=== PATIENT | female | born 1970 | race Caucasian/White ===

== ENCOUNTER 2024-05-17 19:41 | Emergency (ER) | payer MEDICAID, SELFPAY ==
[2024-05-17 19:54] VITALS: BP 106/56; PULSE 83; RESP 16; TEMP 36.2; O2SAT 100; BMI 29.5
--- OUTSIDE RECORDS SUMMARY | 2024-05-17 19:59 | XMS_ITS | Referral Summary ---
Author Organization [facility] Address [address] [place] [address]- Care Team Providers Care Research Geologist Name Role Phone Ricardo Contreras Primary Care Physician Encounter Date(s): 01/09/17 - 01/09/17 [facility] [address] [place] [address]- [facility] Discharge Disposition: Home Attending Physician: Raul Arthur Referring Physician: Raul Arthur Vital Signs No data available for this section Problem List Condition Effective Dates Status Health Status Inform ant Altered behavior(Confirmed) 01/05/16 Active Hypotension(Confirmed) 04/13/15 Active Allergies, Adverse Reactions, Alerts Substance Reaction Severity Status Adhesive Bandage Active Bee Stings Active Latex Active Medications No data available for this section Results No data available for this section Immunizations No data available for this section Procedures No data available for this section Social History No data available for this section Functional Status No data available for this section Assessment and Plan No data available for this section Hospital Discharge Instructions No data available for this section
--- OUTSIDE RECORDS SUMMARY | 2024-05-17 19:59 | XMS_ITS | Referral Summary ---
Author Organization [facility] Address [address] [place] [address]- Care Team Providers Care Program Director Cable Television Name Role Phone Ricardo Contreras Primary Care Physician [phone] Encounter Date(s): 12/17/18 - 12/17/18 [facility] [address] [place] [address]- [facility] Discharge Disposition: Home Attending Physician: Davon Law Referring Physician: Davon Law Vital Signs Most recent to oldest [Reference Range]: 1 2 3 Systolic Blood Pressure [90-140 mm-hg] 140 mm-hg (12/17/18 4:40 PM) 149 mm-hg *HI* (12/17/18 4:40 PM) 161 mm-hg *HI* (12/17/18 4:40 PM) Diastolic Blood Pressure [60-90 mm-hg] 59 mm-hg *LOW* (12/17/18 4:40 PM) 66 mm-hg (12/17/18 4:40 PM) 63 mm-hg (12/17/18 4:40 PM) M A P [65-110 mm-hg] 105 mm-hg (12/17/18 3:08 PM) Temperature Tympanic [97.9-100.6 DegF] 99.4 DegF (12/17/18 4:40 PM) 99.4 DegF (12/17/18 4:40 PM) 98.4 DegF 1 (12/17/18 3:08 PM) Apical Heart Rate [60-100 bpm] 67 bpm (12/17/18 4:40 PM) 73 bpm (12/17/18 4:40 PM) 76 bpm (12/17/18 4:40 PM) Peripheral Pulse Rate [60-100 bpm] 79 bpm (12/17/18 3:08 PM) Respiratory Rate [14-20 br/min] 16 br/min (12/17/18 4:40 PM) 16 br/min (12/17/18 4:40 PM) 16 br/min (12/17/18 4:40 PM) 1Result Comment: temporal Problem List Condition Effective Dates Status Health Status Inform ant Altered behavior(Confirmed) 01/05/16 Active Hypotension(Confirmed) 04/13/15 Active Allergies, Adverse Reactions, Alerts Substance Reaction Severity Status Adhesive Bandage Active Bee Stings Active Latex Active Results Blood Glucose Most recent to oldest [Reference Range]: 1 Blood Glucose, Capillary [70-100 mg/dL] 141 mg/dL 1 *HI* (12/17/18 3:32 PM) 1Result Comment: finger Social History Social History Type Response Smoking Status Current every day jeanine cavazos Assessment and Plan Extracted from: Title:Discharge Instructions Author:John Arce Date:12/17/18 [facility] EN[facility] We strive to always provide you with Excellent Care! Surgery Discharge Instructions It is very important that you take these discharge instructions with you to your next doctor? s appointment! PERSON INFORMATION Name: KATHERIN GOMEZ Age: 48 Years Visit Reason: Address: [address] [place] [address] Primary physician: Ricardo Contreras Arrival Date/Time: Discharge Date/Time: PROVIDER INFORMATION MEDICAL INFORMATION Allergies Latex Bee Stings Adhesive Bandage Discharge Instructions by the Physician: PATIENT EDUCATION INFORMATION: GENERAL (ADULT) POST-OPERATIVE INSTRUCTIONS ACTIVITY: Due to the medicine you received, you may be sleepy for the next 24 hours. You should rest at home and have a responsible adult with you. You are advised not to make any important decisions, sign important papers, drive or operate machinery for the next 24 hours or as directed by your doctor. MEDICATION: You doctor may give you a prescription for pain. This should be taken as directed. When you take the medicine be careful as you walk or drive, because dizziness may occur. DIET: During the next 24 hours, progress slowly to your normal diet (unless your doctor has instructed you otherwise). Start with liquids such as soft drinks, then soup and crackers, gradually working up to solid foods. Drink as much water, juice, or cola, as you can tolerate; up to eight glasses a day, unless you are on fluid restrictions. Also, do not drink beer, wine, or liquors for the next 24 hours. Alcohol increases the effects of anesthesia. DRESSING CARE: MAY SHOWER TOMORROW. PACK WOUND AND COVER WITH DRY DRESSING DAILY WHEN TO CALL THE DOCTOR: ? ? A fever over 100 degrees orally. ? ? Pain not relieved by pain medication ? ? A large amount of bleeding from the wound. ? ? Persistent nausea / vomiting ? ? You have chills, a cough, or feel weak and achy. ? ? Allergic reaction to your medications causing your skin to become itchy, swollen, and develop a rash. WHERE TO CALL WITH QUESTIONS: Dr. LAW Telephone: [phone] Outpatient Services - [phone] or [phone], open 7:00am to 3:30pm Sunday through Sunday. APPOINTMENT WITH: CALL TOMORROW FOR 2 TO 3 WEEK FOLLOW UP. PRESCRIPTION(S): X Patient provided with written prescriptions: ? Written prescriptions verified with physician orders: ? No prescription provided: EXTRA INSTRUCTIONS: NO DRIVING IN PAIN AND USING NARCOTICS A copy of these instructions were given and explained to: FAMILY MEMBER Follow Up: FINAL MEDICATION LIST: No Medications Documented DISCHARGE INFORMATION Discharge Disposition: Discharge Location: Hospital Discharge Instructions Patient Education General Adult Post Op
[2024-05-17 20:00] VITALS: BP 121/62; PULSE 83; O2SAT 99
[2024-05-17 20:30] VITALS: BP 119/61; PULSE 79; O2SAT 100
[2024-05-17 20:39] VITALS: BP 119/61; PULSE 77; RESP 18; TEMP 36.5; O2SAT 100
[2024-05-17] MEDS: MUPIROCIN 2% OINTMENT 22GM TUBE 22 GM TP (20:39)
[2024-05-17] MEDS: SULFA/TRIMETHOPRIM 1 TABLET 1 EACH PO (20:39)
[2024-05-17] MEDS: cephALEXin 500MG CAPSULE 500 MG PO (20:39)
--- NOTE | 2024-05-17 21:16 | ED_ITS ---
Discharge Plan Disposition Patient Disposition: Home, Self-Care Condition: Good Prescriptions Prescriptions: New sulfamethoxazole-trimethoprim [Bactrim DS] 800-160 mg tablet 1 tab PO BID 7 Days Qty: 14 0RF cephalexin 500 mg capsule 500 mg PO Q6H 7 Days Qty: 28 0RF No Action cyanocobalamin (vitamin B-12) 1,000 mcg tablet PO levocetirizine 5 mg tablet PO ferrous sulfate 324 mg (65 mg iron) tablet,delayed release (DR/EC) PO topiramate 50 mg tablet PO hydroxyzine HCl 25 mg tablet PO potassium chloride 10 mEq tablet extended release PO oxycodone-acetaminophen 7.5-325 mg tablet PO gabapentin 300 mg capsule PO Patient Comments: TAKE 1 CAPSULE BY MOUTH TWICE DAILY lisinopril 20 mg tablet PO magnesium oxide 400 mg (241.3 mg magnesium) tablet PO sumatriptan succinate 100 mg tablet PO Patient Comments: TAKE 1 TABLET BY MOUTH 1 TIME AT ONSET OF HEADACHE. REPEAT AFTER 2 HOURS IF HEADACHE PERSISTS cholecalciferol (vitamin D3) 1,250 mcg (50,000 unit) capsule PO Mounjaro 5 mg/0.5 mL pen injector SQ Patient Comments: ADMINISTER 5 MG UNDER THE SKIN WEEKLY sertraline 50 mg tablet PO (DME) BinaxNOW COVID-19 Ag Self Test Kit See Rx Instructions .ROUTE .MEDSUPPLY Qty: 1 Rx Instructions: As directed omeprazole 40 mg capsule,delayed release(DR/EC) PO Patient Comments: TAKE 1 CAPSULE BY MOUTH DAILY anastrozole 1 mg tablet 1 mg PO DAILY Qty: 90 3RF Referrals Follow up/Referrals: Kiara Espinal APRN [Nurse Practitioner] - See instructions Provider,Referral, [Primary Care Provider] - See instructions Activity Restrictions/Add. Instructions Additional Instructions/Restrictions: You were evaluated in the emergency department today. 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 Take Tylenol and ibuprofen every 4-6 hours as needed for pain. Follow-up closely with your primary care provider. You may also follow-up with ENT for reassessment of your nose. Return to the emergency department for new or worsening symptoms Clinical Impressions Clinical Impression: Cellulitis of face, Nasal pain Stand Alone Forms Stand Alone Forms: Work/School Release Instructions Patient Instructions: Cellulitis Print Language Print Language: Vietnamese Discharge ED Provider: Amber Altamirano General Adult HPI General Chief complaint: Upper Respiratory Infection Stated complaint: sinus pain Time Seen by Provider: 05/17/24 20:07 Mode of Arrival: Family Vehicle Source of Information: Patient Limitations: No Limitations Description of Symptoms (Recalled from ER Triage Doc. by RN): 53 yo [id number] with cc of sinus pain,swelling,drainage,gum tenderness, no recent treatment History of Present Illness HPI narrative: This patient is a 53-year-old female with a history of breast cancer status post section presenting with concern for a facial pain. Patient reports history of recurrent abscesses in the past and is afraid she is getting an abscess of her face. She states that she has some pain and swelling to the lateral aspect of her right nose as well as her right cheek. No ocular symptoms or issues. No abnormal sinus drainage. She does note some increase in the tibia to her upper gums but no other concerns noted at this time. No fevers, chills, or systemic symptoms Related Data Home Medications ?Medication ?Instructions ?Recorded ?Confirmed COVID-19 antigen test (Carol #1 ea 11/13/23 11/13/23 COVID-19 Ag Self Test kit) cholecalciferol (vitamin D3) 1,250 PO 11/13/23 11/13/23 mcg (50,000 unit) capsule cyanocobalamin (vitamin B-12) mcg PO 11/13/23 11/13/23 1,000 mcg tablet ferrous sulfate 324 mg (65 mg mg PO 11/13/23 11/13/23 iron) tablet,delayed release gabapentin 300 mg capsule mg PO 11/13/23 11/13/23 hydroxyzine HCl 25 mg tablet mg PO 11/13/23 11/13/23 levocetirizine 5 mg tablet mg PO 11/13/23 11/13/23 lisinopril 20 mg tablet mg PO 11/13/23 11/13/23 magnesium oxide 400 mg (241.3 mg mg PO 11/13/23 11/13/23 magnesium) tablet omeprazole 40 mg capsule,delayed mg PO 11/13/23 11/13/23 release oxycodone-acetaminophen 7.5 mg-325 tab PO 11/13/23 11/13/23 mg tablet potassium chloride 10 mEq meq PO 11/13/23 11/13/23 tablet,extended release sertraline 50 mg tablet mg PO 11/13/23 11/13/23 sumatriptan succinate 100 mg tablet mg PO 11/13/23 11/13/23 tirzepatide 5 mg/0.5 mL mg SQ 11/13/23 11/13/23 subcutaneous pen injector (Naty) topiramate 50 mg tablet mg PO 11/13/23 11/13/23 Previous Rx's ?Medication ?Instructions ?Recorded anastrozole 1 mg tablet 1 mg PO DAILY #90 tabs 01/31/24 cephalexin 500 mg capsule 500 mg PO Q6H 7 days #28 caps 05/17/24 sulfamethoxazole 800 1 tab PO BID 7 days #14 tabs 05/17/24 mg-trimethoprim 160 mg tablet (Bactrim DS) Allergies Allergy/AdvReac Type Severity Reaction Status Date / Time latex Allergy Verified 11/13/23 11:44 bee sting Allergy Uncoded 11/13/23 11:44 surgical tape Allergy Uncoded 11/13/23 11:44 PFSH [facility] Disclaimer: The information contained in this section may have been updated after the patient was seen, as this information can be updated by other users. Social History Smoking Status: Unknown if ever smoked alcohol intake: never current occupational status: unemployed Travel in the last 8 weeks: None ROS Obtained: Yes All systems reviewed & no additional complaints except as documented Physical Exam General General appearance: alert and in no apparent distress Head Head exam: atraumatic and normocephalic Eye Eye exam: Present normal appearance, PERRL and EOMI ENT ENT exam: Present normal oropharynx, mucous membranes moist and normal external ear exam Expanded ENT Exam Nose/Mouth Image: 2 1. mild erythema and swelling, no appreciable abscesses, induration, fluctuance; area is TTP. No purulent nasal drainage Neck Neck exam: Present normal inspection, full ROM and trachea midline; Absent tenderness Chest Chest inspection: Present normal inspection and symmetric chest wall rise; Absent tenderness Respiratory Respiratory exam: Present normal lung sounds bilaterally; Absent respiratory distress, wheezes, stridor or accessory muscle use Cardiovascular Cardiovascular exam: Present regular rate and normal rhythm Abdominal Exam Abdominal exam: Present soft; Absent distention, tenderness or guarding Extremities Exam Extremities exam: Present normal inspection, full ROM and normal capillary refill; Absent tenderness or edema Back Exam Back exam: Present normal inspection and full ROM; Absent tenderness Neurological Exam Neurological exam: Present alert, oriented X3, CN II-XII intact and normal gait; Absent motor sensory deficit Psychiatric Psychiatric exam: Present normal affect and normal mood Skin Skin exam: Present warm and dry Medical Decision Making Medical Records Medical records reviewed: Yes I reviewed the patient's medical records. Damion Inquiry Pt receiving controlled substance: No Vital Signs: 05/17/24 19:54 05/17/24 20:00 05/17/24 20:30 Temperature 97.2 F L Temperature Source Oral Pulse Rate 83 79 Pulse Rate [Right Brachial] 83 Respiratory Rate 16 Blood Pressure 121/62 119/61 Blood Pressure [Right Arm] 106/56 L Blood Pressure Mean [Right Arm] 72 Blood Pressure Source Blood Pressure Source [Right Arm] Automatic Cuff Blood Pressure Position Blood Pressure Position [Right Arm] Sitting 02 Sat by Pulse Oximetry 100 99 100 Oxygen Delivery Method Room Air 05/17/24 20:39 Temperature 97.7 F Temperature Source Oral Pulse Rate 77 Pulse Rate [Right Brachial] Respiratory Rate 18 Blood Pressure 119/61 Blood Pressure [Right Arm] Blood Pressure Mean [Right Arm] Blood Pressure Source Automatic Cuff Blood Pressure Source [Right Arm] Blood Pressure Position Sitting Blood Pressure Position [Right Arm] 02 Sat by Pulse Oximetry Oxygen Delivery Method Room Air Lab Data Lab results reviewed: Yes I reviewed the patient's lab results. Orders (Tests/Meds): ED MEDICATIONS Discontinued Medications Generic Name Dose Route Start Last Admin Trade Name Freq PRN Reason Stop Dose Admin Cephalexin HCl 500 mg 05/17/24 20:30 05/17/24 20:39 Cephalexin 500mg Capsule PO 05/17/24 20:31 500 mg ONCE ONE Administration Mupirocin 22 gm 05/17/24 20:30 05/17/24 20:39 Mupirocin 2% Ointment 22gm Tube TP 05/17/24 20:31 22 gm ONCE ONE Administration Trimethoprim/Sulfamethoxazole 1 each 05/17/24 20:30 05/17/24 20:39 Sulfa/Trimethoprim 1 Tablet PO 05/17/24 20:31 1 each ONCE ONE Administration Medical Decision Narrative: In summary, this patient is a 53-year-old female presenting to the Emergency Department for evaluation of right-sided facial/nose swelling. Differential diagnoses considered include but are not limited to cellulitis, abscess, nasal polyp, sinusitis. Ruling out the most morbid conditions drove assessment. On exam, the patient is very well-appearing. She has mild erythema and tenderness to the right nostril/right cheek that is very localized. No palpable induration or fluctuance. No appreciable rashes or intranasal abscess. At this time, feel she likely has cellulitis of her face. She is agreeable to trial of antibiotics as an outpatient including Bactrim, Keflex, and mupirocin. I advised that she follow-up very closely with ENT for reassessment. She was given strict return precautions and was discharged in stable condition after all questions were answered Critical Care Critical Care Time Critical Care Time: No
== END 2024-05-17 20:45 | disposition home or self-care (01) ==
PROVIDERS: Emergency Provider Emergency Medicine
DX: L03.211 Cellulitis of face (principal); J34.89 Other specified disorders of nose and nasal sinuses
CPT/HCPCS: 99283

== ENCOUNTER 2024-07-21 13:53 | Emergency (ER) | payer MEDICAID, SELFPAY ==
[2024-07-21 14:07] VITALS: BP 123/70; PULSE 83; RESP 16; TEMP 36.6; O2SAT 97; BMI 29.5
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
[2024-07-21 14:33] VITALS: BP 123/70; PULSE 83; RESP 16; TEMP 36.6; O2SAT 97
== END 2024-07-21 14:34 | disposition home or self-care (01) ==
PROVIDERS: Emergency Provider Nurse Practitioner
DX: T22.012A Burn of unspecified degree of left forearm, initial encounter (principal)
CPT/HCPCS: 99212; G0381

== ENCOUNTER 2024-08-18 13:03 | Outpatient (CLI) | payer MEDICAID, SELFPAY ==
--- OUTSIDE RECORDS SUMMARY | 2024-08-18 13:06 | XMS_ITS | Clinical Summary ---
Author Organization [facility] Address [address] [place], [place] [id number] [place] [id number] Care Team Providers Care Farm Or Ranch Animal Caretaker Name Role Phone Ricardo Contreras MD Primary Care Provider + Jalil Marie MD Unavailable Barbie Jorgensen DISTRICT PLANT SUPERINTENDENT Unavailable [phone] Clara Holbrook DISTRICT PLANT SUPERINTENDENT Unavailable [phone] Allergies Active Allergy Reactions Criticality Noted Date Comments Adhesive Tape Rash Low 06/21/2022 BLISTERS Latex Rash Low 02/24/2022 BLISTERS Other 09/14/2022 bandaids Medications Medication Sig Dispensed Refills Start Date End Date Status atorvastatin (Lipitor) 80 MG tablet Take 1 tablet (80 mg) by mouth in the morning. Take morning of surgery Active citalopram (CeleXA) 40 MG tablet Take 1 tablet (40 mg) by mouth in the morning. Take morning of surgery 03/16/2022 Active ferrous sulfate 324 MG EC tablet 1 tablet (324 mg) with breakfast. Hold morning of procedure Active glipiZIDE (Glucotrol) 5 MG tablet Take 2 tablets (10 mg) by mouth before breakfast and before evening meal. Hold morning of procedure Active hydrOXYzine HCl (Atarax) 25 MG tablet Take 1 tablet (25 mg) by mouth if needed in the morning and at bedtime. May take morning of procedure 01/18/2022 Active lisinopril 20 MG tablet Take 1 tablet (20 mg) by mouth in the morning. Hold morning of procedure 03/16/2022 Active loratadine (Claritin) 10 MG tablet Take 1 tablet (10 mg) by mouth with evening meal. Take night before procedure 12/21/2021 Active meloxicam (Mobic) 7.5 MG tablet Take 1 tablet (7.5 mg) by mouth in the morning and at bedtime. Hold morning of procedure 02/07/2022 Active metFORMIN (Glucophage) 1000 MG tablet Take 1 tablet (1,000 mg) by mouth with breakfast and with evening meal. Hold morning of procedure Active omeprazole (PriLOSEC) [address] capsule Take 1 capsule (40 mg) by mouth in the morning. Take morning of procedure 01/27/2022 Active oxyCODONE-acetamino phen (Percocet) 7.5-325 MG tablet Take 1 tablet by mouth every 8 (eight) hours. May take morning of procedure Active pregabalin (Lyrica) 150 MG capsule Take 1 capsule (150 mg) by mouth every 12 (twelve) hours. May take morning of procedure Active semaglutide (Ozempic, 0.25 or 0.5 MG/DOSE,) 2 MG/1.5ML solution pen-injectorIndicat ions:Type 2 Diabetes Mellitus 0.25 mg 1 (one) time per week. Active topiramate 50 MG tablet Take 50 mg by mouth in the morning and at bedtime. Take morning of procedure Active nitroglycerin (Nitrostat) 0.[address] 1 tablet (0.4 mg) under the tongue every 5 (five) minutes if needed for chest pain. May repeat dose every 5 minutes for up to 3 doses total. 30 tablet 11 05/31/2022 Active potassium chloride CR (Klor-Con) 10 MEQ ER tablet Take 1 tablet (10 mEq) by mouth in the morning. with food- hold morning of procedure 03/16/2022 Active SUMAtriptan (Imitrex) 100 MG tablet Take 1 tablet (100 mg) by mouth. Active oxybutynin XL (Ditropan-XL) 5 MG 24 hr tablet Take 1 tablet (5 mg) by mouth in the morning. Take morning of surgery 03/08/2022 Active ondansetron (Zofran) 4 MG tablet Take 1 tablet (4 mg) by mouth every 6 (six) hours if needed. 03/16/2022 Active MAGnesium-Oxide tablet Take 1 tablet (400 mg) by mouth in the morning and at bedtime. Do not take morning of surgery 05/25/2022 Active ergocalciferol (Vitamin D2) 1.25 MG (62551 UT) capsule 1 capsule (50,000 Units) 1 (one) time per week. 01/18/2022 Active mupirocin (Bactroban) 2 % ointment APPLY TOPICALLY IN THE MORNING, AFTERNOON, AND AT DINNER TIME FOR 10 DAYS. 15 g 10/13/2022 Active B-D ULTRAFINE III SHORT PEN 31G X 8 MM misc USE TO INJECT VICTOZA EVERY DAY 10/11/2022 Active Lancets (OneTouch Delica Plus [id number]) misc in the morning, at noon, and at dinner time.. for testing 10/11/2022 Active furosemide (Lasix) 40 MG tablet TAKE 1 TABLET NEEDED FOR LOWER EXREMITY EDEMA 10/11/2022 Active rOPINIRole (Requip) 2 MG tablet Take 1 tablet (2 mg) by mouth at bedtime. 10/11/2022 Active hydrOXYzine pamoate (Vistaril) 25 MG capsule Take 1 capsule (25 mg) by mouth if needed in the morning, at noon, and at bedtime for itching for up to 10 days. 30 capsule 12/12/2022 Active Tirzepatide (Mounjaro) 5 MG/0.5ML solution pen-injector Inject 5 mg under the skin 1 (one) time per week. Active tiZANidine (Zanaflex) 4 MG capsule Take 1 capsule (4 mg) by mouth in the morning, at noon, and at bedtime. 15 capsule 06/14/2023 Active levocetirizine (Xyzal) 5 MG tablet Take 1 tablet (5 mg) by mouth at bedtime. Active gabapentin (Neurontin) 300 MG capsule Take 1 capsule (300 mg) by mouth in the morning and at bedtime. 06/27/2023 Active SSD 1 % cream APPLY TOPICALLY TO THE AFFECTED AREA IN THE MORNING AND AT BEDTIME 50 g 1 08/06/2023 Active cyanocobalamin (Vitamin B-12) 1000 MCG tablet Take 1 tablet (1,000 mcg) by mouth in the morning. 07/12/2023 Active Diclofenac Sodium 1 % gel 08/19/2023 Active sertraline (Zoloft) 50 MG tablet Take 1 tablet (50 mg) by mouth in the morning. 08/14/2023 Active Calcium 600+D 600-5 MG-MCG tabletIndications:M alignant neoplasm of upper-outer quadrant of right breast in female, estrogen receptor positive TAKE 2 TABLET BY MOUTH EVERY MORNING AND AT BEDTIME 60 tablet 5 10/01/2023 Active Active Problems Problem Noted Date Diagnosed Date Anemia 04/10/2023 Assessment & Plan (07/16/2023 10:27 AM EST): Currently on oral ferrous sulfate Will check iron levels at next visit Assessment & Plan (04/10/2023 4:44 PM EDT): Currently on oral iron bid Will recheck iron levels at next visit, if still deficient, will give parental Elbow pain, left 01/24/2023 Assessment & Plan (01/24/2023 4:47 PM EDT): U/S to r/o DVT given swelling and recent IV Xray of elbow If no improvement go to PCP Diarrhea 01/24/2023 Assessment & Plan (01/24/2023 4:48 PM EDT): Increase fluid intake -Gastrointestinal panel ordered Parotid mass 01/24/2023 Assessment & Plan (07/16/2023 8:24 AM EST): Had parotid bx done 01/2019, was consistent with warthins tumor, former pt of Dr. Burrell Was supposed to follow up in 6 months, but has been lost to follow up. Most recent CT scan done last week shows stable parotid mass, but does cervical adenopathy and has a palpable node behind left auricle. Will refer back to ENT for their opinion Assessment & Plan (05/15/2023 5:01 PM EDT): Had parotid bx done 01/2019, was consistent with warthins tumor, former pt of Dr. Burrell Was supposed to follow up in 6 months, but has been lost to follow up. Most recent CT scan done last week shows stable parotid mass, but does cervical adenopathy and has a palpable node behind left auricle. Will refer back to ENT for their opinion Assessment & Plan (04/10/2023 4:44 PM EDT): 12/2021 CT neck showed left parotid lesion and borderline lymph node enlargement She feels that this is enlarging Ed[place] get CT neck and follow up in one month Assessment & Plan (01/24/2023 4:49 PM EDT): New pt to me today 12/2021 CT neck showed left parotid lesion and borderline lymph node enlargement She feels that this is enlarging Edinson get CT neck and follow up in one month Malignant neoplasm of upper- outer quadrant of right breast in female, estrogen receptor positive 06/21/2022 Assessment & Plan (07/16/2023 10:29 AM EST): Perimenopausal white female who was found to have right breast cancer status post right mastectomy by Dr. Duarte on July 08, 2020 with pathology showing 15 mm IDC, negative margins with 0.5 cm the closest margin, grade 2, ER positive at 100%, IN +100%, and HER-2 new negative on immunohistochemistry. No DCIS was seen. Lymph nodes were negative. Staging pT1c N0 M0 stage Ia Quit smoking in November 2019 No history of cancer. Has 3 sisters 1 older than her and 2 younger. No history of cancer in her siblings. She has grandmother with history of breast cancer and aunts Noticed swelling in the right axilla and right breast mastectomy scar area after removal of drains yesterday. -Oncotype DX score 15 with recurrence rate of 4% over 9 years with the use of AI or tamoxifen based on the TAILOR study. FSH in August 2020 came back 54.3 LH 45 with estradiol of 29.7 consistent with menopausal status. Last menstrual cycle was in January 2020. She had history of laser ablation in [address] Mcrae. Made referral to radiation oncology. There was no consult but the patient mentioned that she was called by Dr. Trevino who mentioned to her on the phone that there is no need for adjuvant radiation. Estradiol, LH, and FSH consistent with menopausal range Started Arimidex on 10/14/20 Dexa: 11/01/20: normal CT chest: 12/08/2020: small [address] chest 06/18/22 stable 2-3mm pulmonary nodule. Prolia # 1: 01/24/2023 04/25/2023: Mammogram: benign 05/11/2023: CT neck, C/A/P: unchanged parotid mass, cervical lymphadenopathy, indeterminate intermediate to increased density lesion involving the right adrenal glad or kidney 05/29/2023: MRI breast: birads 2 benign, fat necrosis 06/04/2023: Bone scan: negative 06/14/2023: MRI L spine: multilevel degenerative disc disease 07/04/2023: MR abdomen: negative Has saw Dr. Forrest since last visit her, who reassured her that the palpable abnormalities in breast is fat necrosis. Scheduled for colonoscopy in Sep Plan: -Breast imaging due 04/2024 -Continue Prolia, she is due #2 next week -Refilled AI -Discussed that MRI abd (done due to possible abnormality of adrenal gland) showed no abnormality -Dexa as ordered in Aug -Colonoscpy in Sep as planned -Continue Arimidex, calcium +D. Refill E-scribed -Follow up in 3 months Assessment & Plan (05/15/2023 5:15 PM EDT): Perimenopausal white female who was found to have right breast cancer status post right mastectomy by Dr. Duarte on July 08, 2020 with pathology showing 15 mm IDC, negative margins with 0.5 cm the closest margin, grade 2, ER positive at 100%, IN +100%, and HER-2 new negative on immunohistochemistry. No DCIS was seen. Lymph nodes were negative. Staging pT1c N0 M0 stage Ia ?? Quit smoking in November 2019 No history of cancer. Has 3 sisters 1 older than her and 2 younger. No history of cancer in her siblings. She has grandmother with history of breast cancer and aunts Noticed swelling in the right axilla and right breast mastectomy scar area after removal of drains yesterday. -Oncotype DX score 15 with recurrence rate of 4% over 9 years with the use of AI or tamoxifen based on the TAILOR study. FSH in August 2020 came back 54.3 LH 45 with estradiol of 29.7 consistent with menopausal status. Last menstrual cycle was in January 2020. She had history of laser ablation in [address] Mcrae. Made referral to radiation oncology. There was no consult but the patient mentioned that she was called by Dr. Trevino who mentioned to her on the phone that there is no need for adjuvant radiation. Estradiol, LH, and FSH consistent with menopausal range ?? Started Arimidex on 10/14/20 ?? Dexa: 11/01/20: normal CT chest: 12/08/2020: small [address] chest 06/18/22 stable 2-3mm pulmonary nodule. Prolia # 1: 01/24/2023 ??04/25/2023: Mammogram: benign 05/11/2023: CT neck, C/A/P: unchanged parotid mass, cervical lymphadenopathy, indeterminate intermediate to increased density lesion involving the right adrenal glad or kidney Missed appt with Dr. Brewster due to having gastroenteritis. She has now noted palpable nodules over her right mastectomy site She continues to have diarrhea. Plan: -Breast MRI as scheduled -MRI abd to further characterize the indeterminate lesion of adrenal glad vs kidney -Continue AI -Bone scan as ordered -Dexa as ordered in Dec -R/S appt with Dr. Brewster for colonoscopy (needed for screening as well as new onset diarrhea) -Continue Arimidex, calcium +D. Refill E-scribed -Prolia for fracture prevention, dose # 12 Jul 2023 -Follow up in 2 months Assessment & Plan (04/10/2023 4:45 PM EDT): Perimenopausal white female who was found to have right breast cancer status post right mastectomy by Dr. Duarte on July 08, 2020 with pathology showing 15 mm IDC, negative margins with 0.5 cm the closest margin, grade 2, ER positive at 100%, IN +100%, and HER-2 new negative on immunohistochemistry. No DCIS was seen. Lymph nodes were negative. Staging pT1c N0 M0 stage Ia ?? Quit smoking in November 2019 No history of cancer. Has 3 sisters 1 older than her and 2 younger. No history of cancer in her siblings. She has grandmother with history of breast cancer and aunts Noticed swelling in the right axilla and right breast mastectomy scar area after removal of drains yesterday. -Oncotype DX score 15 with recurrence rate of 4% over 9 years with the use of AI or tamoxifen based on the TAILOR study. FSH in August 2020 came back 54.3 LH 45 with estradiol of 29.7 consistent with menopausal status. Last menstrual cycle was in January 2020. She had history of laser ablation in [address] Mcrae. Made referral to radiation oncology. There was no consult but the patient mentioned that she was called by Dr. Trevino who mentioned to her on the phone that there is no need for adjuvant radiation. Estradiol, LH, and FSH consistent with menopausal range ?? Started Arimidex on 10/14/20 ?? Dexa: 11/01/20: normal CT chest: 12/08/2020: small [address] chest 06/18/22 stable 2-3mm pulmonary nodule. Prolia # 1: 01/24/[address] Brewster due to having gastroenteritis. She has now noted palpable nodules over her right mastectomy site and also having pain and weight loss. She continues to have diarrhea. Plan: -R/S appt with Dr. Brewster for colonoscopy (needed for screening as well as new onset diarrhea) -CT C/A/P and bone scan to r/o metastatic disease due to symptoms and weight loss -Mammogram left breast and MRI breast (MRI is needed due to palpable nodules over mastectomy/reconstruction area) -Continue Arimidex, calcium +D. Refill E-scribed -Prolia for fracture prevention, dose # 12 Jul 2023 -Refer to obstetrics gyn for pap -Dexa scan -Follow up after scans Assessment & Plan (01/24/2023 4:48 PM EDT): Perimenopausal white female who was found to have right breast cancer status post right mastectomy by Dr. Duarte on July 08, 2020 with pathology showing 15 mm IDC, negative margins with 0.5 cm the closest margin, grade 2, ER positive at 100%, IN +100%, and HER-2 new negative on immunohistochemistry. No DCIS was seen. Lymph nodes were negative. Staging pT1c N0 M0 stage Ia ?? Quit smoking in November 2019 No history of cancer. Has 3 sisters 1 older than her and 2 younger. No history of cancer in her siblings. She has grandmother with history of breast cancer and aunts Noticed swelling in the right axilla and right breast mastectomy scar area after removal of drains yesterday. -Oncotype DX score 15 with recurrence rate of 4% over 9 years with the use of AI or tamoxifen based on the TAILOR study. FSH in August 2020 came back 54.3 LH 45 with estradiol of 29.7 consistent with menopausal status. Last menstrual cycle was in January 2020. She had history of laser ablation in [address] Mcrae. Made referral to radiation oncology. There was no consult but the patient mentioned that she was called by Dr. Trevino who mentioned to her on the phone that there is no need for adjuvant radiation. Estradiol, LH, and FSH consistent with menopausal range ?? Started Arimidex on 10/14/20 ?? Dexa: 11/01/20: normal CT chest: 12/08/2020: small [address] chest 06/18/22 stable 2-3mm pulmonary nodule. Feels that the lump in her neck has gotten bigger. States that biopsy was planned a couple years ago, but was cancelled due to COVID. Currently having diarrhea, has had to receive IVF for dehydration. PCP thinks this is related to starting Monjauro C/o pain in elbow and swelling in arm, recently had an IV that blowed near the site of pain. Mammogram is past due, recently had breast surgery by Dr. Forrest. Pap is due as well. Plan: -Continue Arimidex, calcium +D. Refill E-scribed -Prolia for fracture prevention, she will receive #1 today -Refer to obstetrics gyn for pap -Refer to Dr. Brewster for colonoscopy (needed for screening as well as new onset diarrhea) -Mammogram if ok with Dr. Forrest -Dexa scan -Labs today -Follow up in one month after CT neck (see below) -CT for lung cancer screening due 06/2023 Assessment & Plan (10/18/2022 12:17 PM EST): Perimenopausal white female who was found to have right breast cancer status post right mastectomy by Dr. Duarte on July 08, 2020 with pathology showing 15 mm IDC, negative margins with 0.5 cm the closest margin, grade 2, ER positive at 100%, IN +100%, and HER-2 new negative on immunohistochemistry. No DCIS was seen. Lymph nodes were negative. Staging pT1c N0 M0 stage Ia ?? Quit smoking in November 2019 No history of cancer. Has 3 sisters 1 older than her and 2 younger. No history of cancer in her siblings. She has grandmother with history of breast cancer and aunts Noticed swelling in the right axilla and right breast mastectomy scar area after removal of drains yesterday. -Oncotype DX score 15 with recurrence rate of 4% over 9 years with the use of AI or tamoxifen based on the TAILOR study. FSH in August 2020 came back 54.3 LH 45 with estradiol of 29.7 consistent with menopausal status. Last menstrual cycle was in January 2020. She had history of laser ablation in [address] Mcrae. Made referral to radiation oncology. There was no consult but the patient mentioned that she was called by Dr. Trevino who mentioned to her on the phone that there is no need for adjuvant radiation. Estradiol, LH, and FSH consistent with menopausal range ?? Started Arimidex on 10/14/20 ?? Dexa: 11/01/20: normal CT chest: 12/08/2020: small [address] chest 06/18/22 stable 2-3mm pulmonary nodule. Prolia for fracture prevention while on AI. Discussed possible side effect of osteonecrosis, she is agreeable to proceed. She has no natural teeth left, so no dental clearance will be required. ?? Here today on follow up for breast cancer. Doing well. Has not started Prolia yet. No new headache or bone pain. Completed breast reconstruction 2 weeks ago. Healing well. Reviewed labs. Stable Plan: Continue Arimidex, calcium +D. Refill E-scribed Prolia for fracture prevention FU 3 months Assessment & Plan (06/21/2022 10:46 AM EDT): Perimenopausal white female who was found to have right breast cancer status post right mastectomy by Dr. Duarte on July 08, 2020 with pathology showing 15 mm IDC, negative margins with 0.5 cm the closest margin, grade 2, ER positive at 100%, IN +100%, and HER-2 new negative on immunohistochemistry. No DCIS was seen. Lymph nodes were negative. Staging pT1c N0 M0 stage Ia ?? Quit smoking in November 2019 No history of cancer. Has 3 sisters 1 older than her and 2 younger. No history of cancer in her siblings. She has grandmother with history of breast cancer and aunts Noticed swelling in the right axilla and right breast mastectomy scar area after removal of drains yesterday. -Oncotype DX score 15 with recurrence rate of 4% over 9 years with the use of AI or tamoxifen based on the TAILOR study. FSH in August 2020 came back 54.3 LH 45 with estradiol of 29.7 consistent with menopausal status. Last menstrual cycle was in January 2020. She had history of laser ablation in [address] Mcrae. Made referral to radiation oncology. There was no consult but the patient mentioned that she was called by Dr. Trevino who mentioned to her on the phone that there is no need for adjuvant radiation. Estradiol, LH, and FSH consistent with menopausal range ?? Started Arimidex on 10/14/20 ?? Dexa: 11/01/20: normal CT chest: 12/08/2020: small [address] chest 06/18/22 stable 2-3mm pulmonary nodule. Prolia for fracture prevention while on AI. Discussed possible side effect of osteonecrosis, she is agreeable to proceed. She has no natural teeth left, so no dental clearance will be required. ?? Here today on follow up for breast cancer. Doing well. Has not started Prolia yet. No new headache or bone pain. 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 Follows with plastics Sunday. Today right breast with peeling area over proximal area of scar. No drainage. Reviewed labs. Stable Plan: Continue Arimidex, calcium +D. Refill E-scribed Prolia for fracture prevention FU 3 months 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, estrogen receptor positive 06/21/2022 Resolved Problems Problem Noted Date Diagnosed Date Resolved Date Obesity (BMI 35.0-39.9 without comorbidity) 09/12/2022 01/24/2023 Severe obesity (BMI 35.0-35. 9 with comorbidity) 09/12/2022 01/24/2023 Immunizations Name Administration Dates Next Due Influenza, injectable, quadrivalent, preservativ e free 05/13/2020,06/05/2016 Influenza, seasonal, injectable 06/23/2021 Influenza, seasonal, injectable, preservative fr ee 07/23/2017 PPD Test 12/10/2022,12/08/2022 Family History Medical History Relation Name Comments Breast cancer Maternal Grandmother Relation Name Status Comments Maternal Grandmother Social History Tobacco Use Types Packs/Day Years Used Date Smoking Tobacco: Former Cigarettes 1.5 20 1 - 2018 Passive Smoke Exposure: Current Smokeless Tobacco: Never Tobacco Cessation:Counseling Given: Not Answered Alcohol Use Standard Drinks/Week Comments Never 0 (1 standard drink = 0.6 oz pur e alcohol) PHQ-2 Answer Date Recorded Patient Health Questionnaire-2 Score 0 06/06/2023 Sex and Gender Information Value Date Recorded Sex Assigned at Female 2021 11:11 AM EST Gender Identity Female 2021 11:11 AM EST Sexual Orientation Straight 2021 11 :11 AM EST Last Filed Vital Signs Vital Sign Reading Time Taken Comments Blood Pressure 122/78 08/24/2023 9:22 AM EST Pulse 74 08/24/2023 9:22 AM EST Temperature 36.6 ??C (97.8 ??F) 08/24/2023 9:22 AM ES T Respiratory Rate 18 08/24/2023 9:22 AM EST Oxygen Saturation 97% 08/24/2023 9:22 AM EST Inhaled Oxygen Concentration - - Weight 84.8 kg (187 lb) 08/24/2023 9:22 AM EST Height 162.6 cm (5' 4 ) 08/24/2023 9:22 AM EST Body Mass Index 32.1 08/24/2023 9:22 AM EST Plan of Treatment Health Maintenance Due Date Last Done Comments CT Colonography 1972 ColoGuard Screening 1972 Colonoscopy 1972 Colorectal Cancer Screening 1972 FIT-DNA 1972 FIT 1972 FOBT 1972 Sigmoidoscopy 1972 MMR Vaccines (1 of 1 - Standard series) 1973 Diabetes: Retinopathy Screening 1982 DTaP/Tdap/Td Vaccines (1 - Tdap) 11/17/1991 Pap Smear 1993 Cervical Cancer Screening 2002 HPV/Cotest 2002 Lung Cancer Screening Shared Decision Making 2022 Diabetes: Hemoglobin A1C 2023 023, 08/17/2023, 05/02/2023, Additional history exists Influenza Vaccine (#1) 2024 3, 06/14/2022, 06/23/2021, Additional history exists Lung Cancer Screening Discontinued 12/08/2020 RSV under 20 month Aged Out No longer eligible based on patient's age to complete this topic Medical Devices Implanted Type Area Lumber Loader Device Identifier Shelf Expiration Date Model / Serial / Lot Tt Alloderm [id number] Perforated - [id number] Implanted:Qty: 1 on 04/13/2022 by Gregory Forrest MD at [facility] Right: Breast ALLERGAN 11/07/2022 [id number] / / [id number] Artoura Ultra High Profile 650cc - [id number] - [id number] Implanted:Qty: 1 on 04/13/2022 by Gregory Forrest MD at [facility], [facility] Right: Breast MENTOR MIKE 12/11/2025 [id number] / [id number] / Breast Implant 380-450cc Smth/Rnd High Profile - [id number] Implanted:Qty: 1 on 09/14/2022 by Gregory Forrest MD at [facility], [facility] Right: Breast MENTOR MIKE [id number] / / Implant Breast 275cc Saline Round Mod/Plus - [id number] Implanted:Qty: 1 on 09/14/2022 by Gregory Forrest MD at [facility] Left: Breast MENTOR MIKE [id number] / / Procedures Procedure Name Priority Date/Time Associated Diagnosis Comments HEMOGLOBIN A1C Routine 08/17/2023 3:33 PM EST Type 2 diabetes mellitus with hyperglycemia Dehydration Candidiasis of vulva and vagina Chronic migraine without aura, not intractable, without status migrainosus Major depressive disorder, recurrent, mild Hypoglycemia, unspecified Cervicalgia Disorder of bone, unspecified Encounter for screening for depression Dietary counseling and surveillance Exercise counseling 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 It is not an approved screening test for diagnosing type 1 and type 2 diabetes. Results of Hemoglobin A1c are not reliable in patients with chronic blood loss, consequent variable erythrocyte lifespan, hemolytic diseases, , and significant blood loss. MEAN BLOOD GLUCOSE 162.81 mg/dl 08/17/2023 7:04 PM EST [facility] Blood Venous blood specimen / Unknown Venipuncture / Unknown 08/17/2023 3:33 PM EST 08/17/2023 3:33 PM EST Ricardo Contreras MD LAB BLOOD ORDERA BLES Performing Organization Address City/State/[facility] Co de Phone Number [facility] [address] [place] [address], * CT lung screening low dose (12/08/2020 11:47 AM EDT) Anatomical Region Laterality Modality Lung Computed Tomogra phy 12/08/2020 11:4 7 AM EDT Narrative 12/08/2020 2:41 PM EDT PROCEDURE: CT LUNG CA SCREENIN12/08/2020 CLINICAL INFORMATION: Personal history of nicotine dependence SCREENING CHEST CT TECHNIQUE: ??Routine screening chest CT was performed utilizing unenhanced low dose protocol. ??Assessment of the mediastinum, lymph nodes, and vascular structures is limited by the unenhanced technique. COMPARISON: ??09/21/2020. There is COPD. ??There is a small pulmonary nodule in the left upper lobe measuring 3 mm, unchanged. No focal consolidation, pleural effusion, or pneumothorax. Nonenhanced low dose appearance of the heart and mediastinal structures appear grossly intact. ??There is no pericardial effusion. There is atheromatous calcified plaque in the vasculature. There are postsurgical changes along the right chest wall/breast region. There are multifocal degenerative changes in the spine with large anterior bridging osteophytes. Impression: 1. ??Emphysema with a tiny pulmonary nodule unchanged at 3 mm on the left. Follow-up chest CT imaging in 6 months suggested 2. ??Postoperative changes along the right chest wall/breast region. Report Sign Date: 12/08/2020 2:39 PM, Electronically Signed By: ??Sang George MD Procedure Note Sang George MD - 11/25/2021 PROCEDURE: CT LUNG CA SCREENIN12/08/2020 CLINICAL INFORMATION: Personal history of nicotine dependence SCREENING CHEST CT TECHNIQUE: Routine screening chest CT was performed utilizing unenhancedlow dose protocol. Assessment of the mediastinum, lymph nodes, andvascular structures is limited by the unenhanced technique. COMPARISON: 09/21/2020. There is COPD. There is a small pulmonary nodule in the left upper lobemeasuring 3 mm, unchanged. No focal consolidation, pleural effusion, orpneumothorax. Nonenhanced low dose appearance of the heart and mediastinalstructures appear grossly intact. There is no pericardial effusion. Thereis atheromatous calcified plaque in the vasculature. There arepostsurgical changes along the right chest wall/breast region. There aremultifocal degenerative changes in the spine with large anterior bridgingosteophytes. Impression: 1. Emphysema with a tiny pulmonary nodule unchanged at 3 mm on the left.Follow- up chest CT imaging in 6 months suggested 2. Postoperative changes along the right chest wall/breast region. Report Sign Date: 12/08/2020 2:39 PM, Electronically Signed By: Sang George MD Caitlyn Hugo MD IMG CT PROCEDURES from Last 3 Months or Most Recently Relevant to Health Maintenance Advance Directives * Full Code (Latest Code Status on File) Date Activated Date Inactivated Comments 09/14/2022 9:39 AM 09/14/2022 5:42 PM * Full Code Date Activated Date Inactivated Comments 04/13/2022 6:43 AM 04/13/2022 2:28 PM Care Teams Farm Or Ranch Animal Caretaker Relationship Specialty Start Date End Date Ricardo Contreras MD [address] [place] [address] PCP - General Jalil Marie MD [address] [place] [address] Consulting Physician Hematology 04/12/22 Barbie Jorgensen APRN [address] [place] [place] [address] Nurse Practitioner Oncology 06/21/22 Clara Holbrook APRN [address] [place] [address] Nurse Practitioner Oncology 01/24/23
--- OUTSIDE RECORDS SUMMARY | 2024-08-18 13:06 | XMS_ITS ---
Author Organization [facility] Address [address] [place] [place] [address] [place] [address] Care Team Providers Care Director Medical Safety Name Role Phone Ricardo Contreras MD Primary Care Provider + Jalil Marie MD Unavailable [phone] Barbie Jorgensen PLAYGROUND AIDE Unavailable [phone] Clara Holbrook PLAYGROUND AIDE Unavailable [phone] Active Problems Problem Noted Date Diagnosed Date [...] margin, grade 2, ER positive at 100%, WY +100%, and HER-2 new negative on immunohistochemistry. [...] showed no abnormality -Dexa as ordered in Dec -Colonoscpy in Sep as planned -Continue Arimidex, [...] margin, grade 2, ER positive at 100%, WY +100%, and HER-2 new negative on immunohistochemistry. [...] scan as ordered -Dexa as ordered in Aug -R/S appt with Dr. Brewster for colonoscopy [...] margin, grade 2, ER positive at 100%, WY +100%, and HER-2 new negative on immunohistochemistry. [...] dose # 12 Jul 2023 -Refer to button cutting machine operator for pap -Dexa scan -Follow up after scans Assessment & Plan (01/24/2023 4:48 PM EDT): Perimenopausal white female who was found to have right breast cancer status post right mastectomy by Dr. Duarte on July 08, 2020 with pathology showing 15 mm IDC, negative margins with 0.5 cm the closest margin, grade 2, ER positive at 100%, WY +100%, and HER-2 new negative on immunohistochemistry. [...] she will receive #1 today -Refer to button cutting machine operator for pap -Refer to Dr. Brewster for [...] margin, grade 2, ER positive at 100%, WY +100%, and HER-2 new negative on immunohistochemistry. [...] margin, grade 2, ER positive at 100%, WY +100%, and HER-2 new negative on immunohistochemistry. [...] headache or bone pain. Planned to exchange global project manager for implant the end of the month. Follows with plastics Sunday. Today right breast with peeling area over proximal area of scar. No drainage. Reviewed labs. Stable Plan: Continue Arimidex, calcium +D. 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 Radiation Treatments * No radiation treatments are documented for this patient in [facility]. Treatments may have been administered in another system. Lifetime Dose Tracking * Chemical Lifetime Dose Automatic Entry Manual Entr y CTDIvol 151.86 mGy 151.86 mGy 0 mGy Resolved Problems Problem Noted Date Diagnosed Date Resolved Date Obesity (BMI 35.0-39.9 without comorbidity) 09/12/2022 01/24/2023 Severe obesity (BMI 35.0-35. 9 with comorbidity) 09/12/2022 01/24/2023
--- OUTSIDE RECORDS SUMMARY | 2024-08-18 13:06 | XMS_ITS | Referral Summary ---
Author Organization [facility] Address [address] [place], [place] [id number] [place] [address] Care Team Providers Care Drafter Topographical Name Role Phone Ricardo Contreras MD Primary Care Provider + Jalil Marie MD Unavailable [phone] Barbie Jorgensen FAMILY LAW ATTORNEY Unavailable [phone] Clara Holbrook FAMILY LAW ATTORNEY Unavailable Allergies Active Allergy Reactions Criticality Noted Date [...] 05/25/2022 Active ergocalciferol (Vitamin D2) 1.25 MG (02799 UT) capsule 1 capsule (50,000 Units) 1 (one) time per week. 01/18/2022 Active mupirocin (Bactroban) 2 % ointment APPLY TOPICALLY IN THE MORNING, AFTERNOON, AND AT DINNER TIME FOR 10 DAYS. 15 g 10/13/2022 Active B-D ULTRAFINE III SHORT PEN 31G X 8 MM misc USE TO INJECT VICTOZA EVERY DAY 10/11/2022 Active Lancets (OneTouch Delica Plus [id number]) misc in the morning, at noon, and [...] margin, grade 2, ER positive at 100%, [place] +100%, and HER-2 new negative on immunohistochemistry. [...] margin, grade 2, ER positive at 100%, [place] +100%, and HER-2 new negative on immunohistochemistry. [...] margin, grade 2, ER positive at 100%, MA +100%, and HER-2 new negative on immunohistochemistry. [...] dose # 12 Jul 2023 -Refer to lvn for pap -Dexa scan -Follow up after scans Assessment & Plan (01/24/2023 4:48 PM EDT): Perimenopausal white female who was found to have right breast cancer status post right mastectomy by Dr. Duarte on July 08, 2020 with pathology showing 15 mm IDC, negative margins with 0.5 cm the closest margin, grade 2, ER positive at 100%, MA +100%, and HER-2 new negative on immunohistochemistry. [...] she will receive #1 today -Refer to lvn for pap -Refer to Dr. Brewster for [...] margin, grade 2, ER positive at 100%, MA +100%, and HER-2 new negative on immunohistochemistry. [...] margin, grade 2, ER positive at 100%, MA +100%, and HER-2 new negative on immunohistochemistry. [...] headache or bone pain. Planned to exchange is manager for implant the end of the [...] preservative fr ee 07/23/2017 PPD Test 12/10/2022,12/08/2022 Social History Tobacco Use Types Packs/Day Years Used Date Smoking Tobacco: Former Cigarettes 1.5 20 1 - 2019 Passive Smoke Exposure: Current Smokeless Tobacco: Never [...] 08/24/2023 9:22 AM EST Plan of Treatment Not on file Medical Devices Implanted Type Area Furnace Combustion Tester Device Identifier Shelf Expiration Date Model / Serial / Lot Tt Alloderm [id number] Perforated - [id number] Implanted:Qty: 1 on 04/13/2022 by Gregory Forrest MD at [facility] Right: Breast ALLERGAN 11/07/2022 [id number] / / [id number] Artoura Ultra High Profile 650cc - [id number] - [id number] Implanted:Qty: 1 on 04/13/2022 by Gregory Forrest MD at [facility] Right: Breast MENTOR MIKE 12/11/2025 [id number] / [id number] / Breast Implant 380-450cc Smth/Rnd High Profile - [id number] Implanted:Qty: 1 on 09/14/2022 by Gregory Forrest MD at [facility] Right: Breast MENTOR MIKE [id number] / / Implant Breast 275cc Saline Round Mod/Plus - [id number] Implanted:Qty: 1 on 09/14/2022 by Gregory Forrest MD at [facility] Left: Breast MENTOR MIKE [id number] / / Procedures Procedure Name Priority Date/Time Associated Diagnosis Comments HEMOGLOBIN A1C Routine 08/17/2023 3:33 PM EST Type 2 diabetes mellitus with hyperglycemia Dehydration Candidiasis of vulva and vagina Chronic migraine without aura, not intractable, without status migrainosus Major depressive disorder, recurrent, mild Hypoglycemia, unspecified Cervicalgia Disorder of bone, unspecified Encounter for screening for depression Dietary counseling and surveillance Exercise counseling Other intermediate card tender (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 CT LUNG SCREENING LOW DOSE Routine 12/08/2020 11:47 AM EDT from Last 3 Months or Most Recently Relevant to Health Maintenance Results * (ABNORMAL) Hemoglobin A1c (08/17/2023 3:33 PM EST) Hemoglobin A1C 7.3(H) 3.0 - 6.0 % 08/17/2023 7:04 PM EST [facility] Comment: Additional Reference Ranges: 6.0 - 9.0% Controlled Diabetic >9.0 ?Poorly Controlled Diabetic *Hemoglobin A1c is an FDA approved test for monitoring mcfp glucose control in individuals with diabetes. It is not an approved screening test for diagnosing type 1 and type 2 diabetes. Results of Hemoglobin A1c are not reliable in patients with chronic blood loss, consequent variable erythrocyte lifespan, hemolytic diseases, , and significant blood loss. MEAN BLOOD GLUCOSE 162.81 mg/dl 08/17/2023 7:04 PM EST [facility] Blood Venous blood specimen / Unknown Venipuncture / Unknown 08/17/2023 3:33 PM EST 08/17/2023 3:33 PM EST Ricardo Contreras MD LAB BLOOD ORDERA BLES [facility] [address] [place] [address], [place] [phone] * CT lung screening low dose (12/08/2020 [...] 6:43 AM 04/13/2022 2:28 PM Care Teams Drafter Topographical Relationship Specialty Start Date End Date Ricardo Contreras MD [address] [place] [address] PCP - General Jalil Marie MD [address] [place] [address] Consulting Physician Hematology 04/12/22 Barbie Jorgensen APRN [address] [place] [address] Nurse Practitioner Oncology 06/21/22 Clara Holbrook APRN [address] [facility] [place] [address] Nurse Practitioner Oncology 01/24/23
--- OUTSIDE RECORDS SUMMARY | 2024-08-18 13:06 | XMS_ITS | Encounter Summary ---
Author Organization [facility] n[facility] Address [address] [place], [place] [id number] [place] [address] Care Team Providers Care Sweater Operator Name Role Phone Ricardo Contreras MD Primary Care Provider + Jlail Marie MD Unavailable [phone] Barbie Joregnsen FOUNDER & CEO Unavailable [phone] Clara Holbrook FOUNDER & CEO Unavailable [phone] Encounter Details Date Type Department Care Team (Latest Contact Info) Description 10/05/2023 Travel Social History Tobacco Use Types Packs/Day Years Used Date Smoking Tobacco: Former Cigarettes 1.5 20 - 2018 Passive Smoke Exposure: Current Smokeless Tobacco: Never Alcohol Use Standard Drinks/Week Comments Never 0 (1 standard drink = 0.6 oz pur e alcohol) PHQ-2 Answer Date Recorded Patient Health Questionnaire-2 Score 0 06/06/2023 Sex and Gender Information Value Date Recorded Sex Assigned at Female 2021 11:11 AM EST Gender Identity Female 2021 11:11 AM EST Sexual Orientation Straight 2021 11 :11 AM EST documented as of this encounter Plan of Treatment Not on file documented as of this encounter Visit Diagnoses Not on filedocumented in this encounter Care Teams Sweater Operator Relationship Specialty Start Date End Date Ricardo Contreras MD [address] [place] [address] PCP - General Jalil Marie MD [address] [place] [address] Consulting Physician Hematology 04/12/22 Barbie Jorgensen APRN [address] [place] [address] Nurse Practitioner Oncology 06/21/22 Clara Holbrook APRN [address] [place] [address] Nurse Practitioner Oncology 01/24/23 documented as of this encounter
--- OUTSIDE RECORDS SUMMARY | 2024-08-18 13:06 | XMS_ITS | Encounter Summary ---
Author Organization [facility] n[facility] Address [address] [place] [address] Care Team Providers Care Beader Tender Name Role Phone Ricardo Contreras MD Primary Care Provider + Jalil Marie MD Unavailable Barbie Jorgensen PROPAGATION WORKER Unavailable [phone] Clara Holbrook PROPAGATION WORKER Unavailable Encounter Details Date Type Department Care Team (Late st Contact Info) Description 10/08/2023 11:59 PM EST Anesthesia Event [facility] [address] [facility] [place] [id number] Clinton Snyder MD [address] [place] [address] Anesthesia Record Procedure Summary Procedure Name Responsible Anesthesiologist Anesthesia Start Time Anesthesia Stop Time COLONOSCOPY Events No events on file. Meds * Agents No agents on file. * Blood No blood administrations on file. Lines, Drains, and Airways No LDAs on file. documented in this encounter Social History Tobacco Use Types Packs/Day Years [...] AM EST documented as of this encounter OR Notes * Anesthesia Preprocedure Evaluation - Clinton Snyder MD - 10/07/2023 9:11 PM EST Patient: Catie Martinez Author: Clinton Snyder MD Procedure Information Date/Time: 10/08/23 0700 Scheduled providers: Joe Brewster MD Procedure: COLONOSCOPY Location: [facility] Visit Vitals OB Status Postmenopausal Smoking Status Former Past Medical History: Diagnosis Date Anxiety Breast cancer right breast nipple Depression Diabetes mellitus GLUCOMETER Full dentures GERD (gastroesophageal reflux disease) Hyperlipidemia Hypertension Overactive bladder Wears eyeglasses Past Surgical History: Procedure Laterality Date ABSCESS DRAINAGE x 2 BI US GUIDED BREAST LOCALIZATION AND BIOPSY RIGHT Right 07/08/2020 BI US GUIDED BREAST LOCALIZATION AND BIOPSY RIGHT [facility] D DIAG IMG CT CHEST ANGIOGRAM W AND/OR WO IV CONTRAST 08/06/2019 CT CHEST ANGIOGRAM W AND/OR WO IV CONTRAST [facility] DIAG IMG CT CHEST ANGIOGRAM W AND/OR WO IV CONTRAST 02/11/2021 CT CHEST ANGIOGRAM W AND/OR WO IV CONTRAST [facility] D DIAG IMG ESOPHAGOGASTRODUODENOSCOPY FOOT SURGERY Right MASTECTOMY Right 07/2020 NECK SURGERY plate due to ruptured disc NOSE SURGERY SHOULDER SURGERY Bilateral Current Outpatient Medications Medication Instructions anastrozole (ARIMIDEX) 1 mg, Oral, Daily atorvastatin (Lipitor) 80 MG tablet Take 1 tablet (80 mg) by mouth in the morning. Take morning of surgery B-D ULTRAFINE III SHORT PEN 31G X 8 MM misc USE TO INJECT VICTOZA EVERY DAY Calcium 600+D 600-5 MG-MCG tablet TAKE 2 TABLET BY MOUTH EVERY MORNING AND AT BEDTIME citalopram (CELEXA) 40 mg, Oral, Daily, Take morning of surgery cyanocobalamin (VITAMIN B-12) 1,000 mcg, Oral, Daily Diclofenac Sodium 1 % gel ergocalciferol (VITAMIN D2) 50,000 Units, Weekly ferrous sulfate 324 MG EC tablet 1 tablet (324 mg) with breakfast. Hold morning of procedure furosemide (Lasix) 40 MG tablet TAKE 1 TABLET NEEDED FOR LOWER EXREMITY EDEMA gabapentin (Neurontin) 300 MG capsule 1 capsule, Oral, 2 times daily RT glipiZIDE (Glucotrol) 5 MG tablet Take 2 tablets (10 mg) by mouth before breakfast and before evening meal. Hold morning of procedure hydrOXYzine HCl (Atarax) 25 MG tablet 1 tablet, Oral, 2 times daily PRN, May take morning of procedure hydrOXYzine pamoate (VISTARIL) 25 mg, Oral, 3 times daily PRN Lancets (OneTouch Delica Plus [id number]) [facility] 3 times daily RT, for testing levocetirizine (Xyzal) 5 MG tablet 1 tablet, Oral, Nightly lisinopril 20 mg, Oral, Daily, Hold morning of procedure loratadine (CLARITIN) 10 mg, Oral, Daily with evening meal, Take night before procedure MAGnesium-Oxide tablet 1 tablet, Oral, 2 times daily RT, Do not take morning of surgery meloxicam (MOBIC) 7.5 mg, Oral, 2 times daily RT, Hold morning of procedure metFORMIN (Glucophage) 1000 MG tablet Take 1 tablet (1,000 mg) by mouth with breakfast and with evening meal. Hold morning of procedure Mounjaro 5 mg, Subcutaneous, Weekly mupirocin (Bactroban) 2 % ointment APPLY TOPICALLY IN THE MORNING, AFTERNOON, AND AT DINNER TIME FOR 10 DAYS. nitroglycerin (NITROSTAT) 0.4 mg, Sublingual, Every 5 min PRN, May repeat dose every 5 minutes for up to 3 doses total. omeprazole (PRILOSEC) 40 mg, Oral, Daily, Take morning of procedure ondansetron (Zofran) 4 MG tablet Take 1 tablet (4 mg) by mouth every 6 (six) hours if needed. oxybutynin XL (DITROPAN-XL) 5 mg, Oral, Daily, Take morning of surgery oxyCODONE-acetaminophen (Percocet) 7.5-325 MG tablet 1 tablet, Oral, Every 8 hours, May take morning of procedure potassium chloride CR (Klor-Con) 10 MEQ ER tablet 10 mEq, Oral, Daily, with food- hold morning of procedure pregabalin (Lyrica) 150 MG capsule 1 capsule, Oral, Every 12 hours, May take morning of procedure rOPINIRole (REQUIP) 2 mg, Oral, Nightly semaglutide (Ozempic, 0.25 or 0.5 MG/DOSE,) 2 MG/1.5ML solution pen-injector 0.25 mg 1 (one) time per week. sertraline (ZOLOFT) 50 mg, Oral, Daily SSD 1 % cream APPLY TOPICALLY TO THE AFFECTED AREA IN THE MORNING AND AT BEDTIME SUMAtriptan (Imitrex) 100 MG tablet Take 1 tablet (100 mg) by mouth. tiZANidine (ZANAFLEX) 4 mg, Oral, 3 times daily topiramate 50 MG tablet Take 50 mg by mouth in the morning and at bedtime. Take morning of procedure Allergies Allergen Reactions Other bandaids Adhesive Tape Rash BLISTERS Latex Rash BLISTERS Patient summary reviewed, Nursing notes reviewed and NPO status verified No history of anesthetic complications: Anesthesia Evaluation: Pulmonary - normal exam (+) Smoking history (former), Seasonal Allergies Hematology/Oncology (+) Cancer (breast) Neuro/Psych (+) Headaches (migraines), Anxiety, Depression Comments: RLS GI/Hepatic/Renal (+) GERD (Negative for:) Liver Disease, Kidney Disease Endo (+) Diabetes Mellitus: type 2 using insulin, Obesity, (Negative for:) hypothyroidism Other (Negative for:) Lupus, Drug use and History of alcohol use Cardiovascular - normal exam (+) Hypertension, Hyperlipidemia (Negative for:) past CA, Dysrhythmias ROS comment: 08/31 TTE Left ventricle: The cavity size is normal. Wall thickness is normal. Systolic function is normal. The estimated ejection fraction is 55-60%. Wall motion is normal; there are no regional wall motion abnormalities. Left ventricular diastolic function parameters are normal. Lexiscan MPI Normal Physical Exam: Airway Mallampati: II TM distance: >3 FB Neck ROM: full Oral Opening: >3 cm Neck Circumference: Normal Cardiovascular - normal exam Rate: normal Rhythm: regular Dental (+) Edentulous Pulmonary - normal exam Breath sounds clear to auscultation Anesthesia Plan: ASA 3 MAC Induction: Post Operative Plan: Informed Consent: documented in this encounter Plan of Treatment Not on file documented as of this encounter Visit Diagnoses Not on filedocumented in this encounter Care Teams Beader Tender Relationship Specialty Start Date End Date Ricardo Contreras MD [address] [place] [id number] PCP - General Jalil Marie MD [address] [place] [address] Consulting Physician Hematology 04/12/22 Barbie Jorgensen APRN [address] [place] [address] Nurse Practitioner Oncology 06/21/22 Clara Holbrook APRN [address] [place] [address] Nurse Practitioner Oncology 01/24/23 documented as of this encounter
--- OUTSIDE RECORDS SUMMARY | 2024-08-18 13:07 | XMS_ITS | Encounter Summary ---
Author Organization [facility] nter Address [address] [place] [address] Care Team Providers Care Yarn Handler Name Role Phone Ricardo Contreras MD Primary Care Provider + Jalil Marie MD Unavailable [phone] Barbie Jorgensen GEODETIC SURVEY DIRECTOR Unavailable [phone] Clara Holbrook GEODETIC SURVEY DIRECTOR Unavailable [phone] Reason for Referral * Imaging (Routine) - Closed Specialty Diagnoses / Procedures Referred By Contac t Referred To Contact Radiology Diagnoses Malignant neoplasm of upper-outer quadrant of right breast in female, estrogen receptor positive Procedures NM bone whole body Clara Holbrook APRN [address] [place] [address] [facility] [address] [place] [address] Phone: [phone] Fax: [phone] Referral ID Status Reason Start Date Expiration Date V isits Requested Visits Authorized [id number] Closed Specialty Services Required 04/17/2023 04/16/2024 2 2 Reason for Visit * Imaging (Routine) - Closed Specialty Diagnoses / Procedures Referred By Contac t Referred To Contact Radiology Diagnoses Malignant neoplasm of upper-outer quadrant of right breast in female, estrogen receptor positive Procedures NM bone whole body Clara Holbrook APRN [address] [place] [address] [facility] [place] [address] [place] [address] Phone: [phone] Fax: [phone] Referral ID Status Reason Start Date Expiration Date V isits Requested Visits Authorized [id number] Closed Specialty Services Required 04/17/2023 04/16/2024 2 2 Encounter Details Date Type Department Care Team (Latest Contact Info) Description 06/04/2023 9:46 AM EDT - 06/04/2023 12:49 PM EDT Hospital Encounter [facility] [address] [place] [address] Malignant neoplasm of upper-outer quadrant of right breast in female, estrogen receptor positive Discharge Disposition: Home or Self Care Social History Tobacco Use Types Packs/Day Years Used Date Smoking Tobacco: Former Cigarettes 1.5 20 - 2018 Passive Smoke Exposure: Current Smokeless Tobacco: Never Alcohol Use Standard Drinks/Week Comments Never 0 (1 standard drink = 0.6 oz pur e alcohol) PHQ-2 Answer Date Recorded Patient Health Questionnaire-2 Score 0 01/31/2023 Sex and Gender Information Value Date Recorded Sex Assigned at Female 2021 11:11 AM EST Gender Identity Female 2021 11:11 AM EST Sexual Orientation Straight 2021 11 :11 AM EST documented as of this encounter Medications at Time of Discharge Medication Sig Dispensed Refills Start Date End Date atorvastatin (Lipitor) 80 MG tablet Take 1 tablet (80 mg) by mouth in the morning. Take morning of surgery B-D ULTRAFINE III SHORT PEN 31G X 8 MM misc USE TO INJECT VICTOZA EVERY DAY 10/11/2022 citalopram (CeleXA) 40 MG tablet Take 1 tablet (40 mg) by mouth in the morning. Take morning of surgery 03/16/2022 ergocalciferol (Vitamin D2) 1.25 MG (07691 UT) capsule 1 capsule (50,000 Units) 1 (one) time per week. 01/18/2022 ferrous sulfate 324 MG EC tablet 1 tablet (324 mg) with breakfast. Hold morning of procedure furosemide (Lasix) 40 MG tablet TAKE 1 TABLET NEEDED FOR LOWER EXREMITY EDEMA 10/11/2022 glipiZIDE (Glucotrol) 5 MG tablet Take 2 tablets (10 mg) by mouth before breakfast and before evening meal. Hold morning of procedure hydrOXYzine HCl (Atarax) 25 MG tablet Take 1 tablet (25 mg) by mouth if needed in the morning and at bedtime. May take morning of procedure 01/18/2022 Lancets (OneTouch Delica Plus [id number]) mis in the morning, at noon, and at dinner time.. for testing 10/11/2022 lisinopril 20 MG tablet Take 1 tablet (20 mg) by mouth in the morning. Hold morning of procedure 03/16/2022 loratadine (Claritin) 10 MG tablet Take 1 tablet (10 mg) by mouth with evening meal. Take night before procedure 12/21/2021 MAGnesium-Oxide tablet Take 1 tablet (400 mg) by mouth in the morning and at bedtime. Do not take morning of surgery 05/25/2022 meloxicam (Mobic) 7.5 MG tablet Take 1 tablet (7.5 mg) by mouth in the morning and at bedtime. Hold morning of procedure 02/07/2022 metFORMIN (Glucophage) 1000 MG tablet Take 1 tablet (1,000 mg) by mouth with breakfast and with evening meal. Hold morning of procedure mupirocin (Bactroban) 2 % ointment APPLY TOPICALLY IN THE MORNING, AFTERNOON, AND AT DINNER TIME FOR 10 DAYS. 15 g 10/13/2022 omeprazole (PriLOSEC) [address] capsule Take 1 capsule (40 mg) by mouth in the morning. Take morning of procedure 01/27/2022 ondansetron (Zofran) 4 MG tablet Take 1 tablet (4 mg) by mouth every 6 (six) hours if needed. 03/16/2022 oxybutynin XL (Ditropan-XL) 5 MG 24 hr tablet Take 1 tablet (5 mg) by mouth in the morning. Take morning of surgery 03/08/2022 oxyCODONE-acetaminophe n (Percocet) 7.5-325 MG tablet Take 1 tablet by mouth every 8 (eight) hours. May take morning of procedure potassium chloride CR (Klor-Con) 10 MEQ ER tablet Take 1 tablet (10 mEq) by mouth in the morning. with food- hold morning of procedure 03/16/2022 pregabalin (Lyrica) 150 MG capsule Take 1 capsule (150 mg) by mouth every 12 (twelve) hours. May take morning of procedure rOPINIRole (Requip) 2 MG tablet Take 1 tablet (2 mg) by mouth at bedtime. 10/11/2022 semaglutide (Ozempic, 0.25 or 0.5 MG/DOSE,) 2 MG/1.5ML solution pen-injectorIndication s:Type 2 Diabetes Mellitus 0.25 mg 1 (one) time per week. SUMAtriptan (Imitrex) 100 MG tablet Take 1 tablet (100 mg) by mouth. Tirzepatide (Mounjaro) 5 MG/0.5ML solution pen-injector Inject 5 mg under the skin 1 (one) time per week. topiramate 50 MG tablet Take 50 mg by mouth in the morning and at bedtime. Take morning of procedure anastrozole (Arimidex) 1 MG chemo tabletIndications:Deborah gnant neoplasm of upper-outer quadrant of right breast in female, estrogen receptor positive Take 1 tablet (1 mg total) by mouth in the morning. 30 tablet 2 05/15/2023 07/16/2023 calcium carbonate-vitamin D (Calcium 600+D) 600-5 MG-MCG tabletIndications:Deborah gnant neoplasm of upper-outer quadrant of right breast in female, estrogen receptor positive Take 2 tablets by mouth in the morning and at bedtime. 60 tablet 5 04/10/2023 10/01/2023 SSD 1 % cream Apply 1 application. topically in the morning and at bedtime. 50 g 1 10/25/2022 08/06/2023 documented as of this encounter Plan of Treatment Not on file documented as of this encounter Procedures Procedure Name Priority Date/Time Associated Diagnosis Comments NM BONE WHOLE BODY Routine 06/04/2023 2: 33 PM EDT Malignant neoplasm of upper-outer quadrant of right breast in female, estrogen receptor positive documented in this encounter Results * NM bone whole body (06/04/2023 2:33 PM EDT) Anatomical Region Laterality Modality Nuclear Medicine 06/04/2023 2:34 PM EDT Impressions 06/04/2023 2:44 PM EDT No evidence of osseous metastatic disease. Report Sign Date: 06/04/2023 2:44 PM, Electronically Signed By: Vahe Godoy MD Narrative 06/04/2023 2:44 PM EDT PROCEDURE: NM BONE WHOLE BODY: 06/04/2023 CLINICAL INFORMATION: breast cancer breast cancer Comparison: CT scan neck chest abdomen and pelvis 05/11/2023 The tracer distribution is physiologic. There is no evidence to suggest osseous metastatic disease. Arthritic changes are present. Procedure Note Vahe Godoy MD - 06/04/2023 PROCEDURE: NM BONE WHOLE BODY: 06/04/2023 CLINICAL INFORMATION: breast cancer breast cancer Comparison: CT scan neck chest abdomen and pelvis 05/11/2023 The tracer distribution is physiologic. There is no evidence to suggestosseous metastatic disease. Arthritic changes are present. IMPRESSION: No evidence of osseous metastatic disease. Report Sign Date: 06/04/2023 2:44 PM, Electronically Signed By: Vahe Boyd MD Clara Holbrook APRN [facility] [place] PROCEDURES documented in this encounter Visit Diagnoses Diagnosis Malignant neoplasm of upper-outer quadrant of right breast in female, estrogen receptor positive documented in this encounter Care Teams Yarn Handler Relationship Specialty Start Date End Date Ricardo Contreras MD [address] [place] [address] PCP - General Jalil Marie MD [address] [place] [address] Consulting Physician Hematology 04/12/22 Barbie Jorgensen APRN [address] [place] [address] Nurse Practitioner Oncology 06/21/22 Clara Holbrook APRN [address] [place] [address] [place] [id number] Nurse Practitioner Oncology 01/24/23 documented as of this encounter
--- OUTSIDE RECORDS SUMMARY | 2024-08-18 13:07 | XMS_ITS | Encounter Summary ---
Author Organization [facility] nter Address [address] [place] [address] Care Team Providers Care Manager Aviation Name Role Phone Ricardo Contreras MD Primary Care Provider + Jalil Marie MD Unavailable Barbie Jorgensen BEZEL CUTTER Unavailable [phone] Clara Holbrook BEZEL CUTTER Unavailable Reason for Visit * Reason Comments Med Refill Encounter Details Date Type Department Care Team (Late st Contact Info) Description 09/15/2023 Refill [facility] [address] [place] [address] Gregory Forrest MD [address] [place] [address] Social History Tobacco Use Types Packs/Day Years Used Date Smoking Tobacco: Former Cigarettes 1.5 20 1 999 - 2019 Passive Smoke Exposure: Current Smokeless [...] AM EST documented as of this encounter Miscellaneous Notes * Telephone Encounter - Gregory Forrest MD - 09/17/2023 9:28 AM EST documented in this encounter Plan of Treatment Not on file documented as of this encounter Visit Diagnoses Not on filedocumented in this encounter Care Teams Manager Aviation Relationship Specialty Start Date End Date Ricardo Contreras MD [address] [place] [address] PCP - General Jalil Marie MD [address] [place] [address] Consulting Physician Hematology 04/12/22 Barbie Jorgensen APRN [address] [place] [address] Nurse Practitioner Oncology 06/21/22 Clara Holbrook APRN [address] [place] [address] Nurse Practitioner Oncology 01/24/23 documented as of this encounter
--- OUTSIDE RECORDS SUMMARY | 2024-08-18 13:07 | XMS_ITS | Encounter Summary ---
Author Organization [facility] nter Address [address] [place], [place] [address] [place] [address] Care Team Providers Care Dry Cleaner Name Role Phone Ricardo Contreras MD Primary Care Provider + Jalil Marie MD Unavailable [phone] Barbie Jorgensen COLLISION REPAIR TECHNICIAN Unavailable [phone] Clara Holbrook COLLISION REPAIR TECHNICIAN Unavailable [phone] Encounter Details Date Type Department Care Team (Latest Contact Info) Description 08/24/2023 Travel Social History Tobacco Use Types Packs/Day [...] on filedocumented in this encounter Care Teams Dry Cleaner Relationship Specialty Start Date End Date Ricardo Contreras MD [address] [place] [address] PCP - General Jalil Marie MD [address] [place] [address] Consulting Physician Hematology 04/12/22 Barbie Jorgensen APRN [address] [place] [address] Nurse Practitioner Oncology 06/21/22 Clara Holbrook APRN [address] [place] [address] Nurse Practitioner Oncology 01/24/23 documented as of this encounter
--- OUTSIDE RECORDS SUMMARY | 2024-08-18 13:07 | XMS_ITS | Encounter Summary ---
Author Organization [facility] nter Address [address] [place] [address] Care Team Providers Care Medical Office Supervisor Name Role Phone Ricardo Contreras MD Primary Care Provider + Jalil Marie MD Unavailable Barbie Jorgensen LINOTYPE MECHANIC Unavailable Clara Holbrook APRN Unavailable Reason for Referral * Imaging (Routine) - Closed Specialty Diagnoses / Procedures Referred By Contac t Referred To Contact Radiology Diagnoses Malignant neoplasm of upper-outer quadrant of right breast in female, estrogen receptor positive Procedures MR abdomen w and wo contrast Clara Holbrook APRN [address] [place] [address] [facility] [address] [place] [address] Phone: [phone] Fax: [phone] Referral ID Status Reason Start Date Expiration Date V isits Requested Visits Authorized [id number] Closed Specialty Services Required 05/22/2023 05/21/2024 1 1 Reason for Visit * Imaging (Routine) - Closed Specialty Diagnoses / Procedures Referred By Contac t Referred To Contact Radiology Diagnoses Malignant neoplasm of upper-outer quadrant of right breast in female, estrogen receptor positive Procedures MR abdomen w and wo contrast Clara Holbrook, LINOTYPE MECHANIC [address] [facility] [place] [address] [facility] Main [place] [address] [place] [address] Phone: [phone] Fax: [phone] Referral ID Status Reason Start Date Expiration Date V isits Requested Visits Authorized [id number] Closed Specialty Services Required 05/22/2023 05/21/2024 1 1 Encounter Details Date Type Department Care Team (Latest Contact Info) Description 07/04/2023 9:47 AM EDT - 07/04/2023 11:59 PM EDT Hospital Encounter [facility] [address], [facility] [place] [address] Malignant neoplasm of upper-outer quadrant of [...] surgery 03/16/2022 ergocalciferol (Vitamin D2) 1.25 MG (36770 UT) capsule 1 capsule (50,000 Units) 1 (one) time per week. 01/18/2022 ferrous sulfate 324 MG EC tablet 1 tablet (324 mg) with breakfast. Hold morning of procedure furosemide (Lasix) 40 MG tablet TAKE 1 TABLET NEEDED FOR LOWER EXREMITY EDEMA 10/11/2022 gabapentin (Neurontin) 300 MG capsule Take 1 capsule (300 mg) by mouth in the morning and at bedtime. 06/27/2023 glipiZIDE (Glucotrol) 5 MG tablet Take 2 tablets (10 mg) by mouth before breakfast and before evening meal. Hold morning of procedure hydrOXYzine HCl (Atarax) 25 MG tablet Take 1 tablet (25 mg) by mouth if needed in the morning and at bedtime. May take morning of procedure 01/18/2022 Lancets (OneTouch Delica Plus [id number]) [facility] in the morning, at noon, and at [...] the skin 1 (one) time per week. tiZANidine (Zanaflex) 4 MG capsule Take 1 capsule (4 mg) by mouth in the morning, at noon, and at bedtime. 15 capsule 06/14/2023 topiramate 50 MG tablet Take 50 mg [...] Procedure Name Priority Date/Time Associated Diagnosis Comments MR ABDOMEN W AND WO CONTRAST Routine 07/04/2023 11:48 AM EDT Malignant neoplasm of upper-outer quadrant of right breast in female, estrogen receptor positive documented in this encounter Results * MR abdomen w and wo contrast (07/04/2023 11:48 AM EDT) Anatomical Region Laterality Modality Abdomen Magnetic Resonan ce 07/04/2023 11:4 7 AM EDT Impressions 07/05/2023 8:30 AM EDT No evidence of acute abnormality. Electronically signed by: ??Vahe Godoy MD ??07/05/2023 08:30 AM EDT Narrative 07/05/2023 8:30 AM EDT PROCEDURE: MR ABDOMEN WITHOUT THEN WITH IV CONTRAST: 07/04/2023 CLINICAL INFORMATION: abnormal CT COMPARISON: CT scan abdomen and pelvis 05/11/[address] scan chest 09/21/2020 LIVER: The visualized aspects of liver demonstrate diffuse fatty infiltration without focal abnormality BILE DUCTS: ??No biliary ductal dilatation. GALLBLADDER: The gallbladder is present and appears contain stones. PANCREAS: Normal signal. No mass lesion. No pancreatic ductal dilatation. SPLEEN: There is mild splenomegaly ADRENAL GLANDS: There is a right adrenal nodule which appears contain fat and appears relatively stable compared prior exams KIDNEYS: No mass or hydronephrosis. LYMPHADENOPATHY: No enlarged lymph nodes. FREE FLUID: No ascites. BONES AND SOFT TISSUES: Otherwise unremarkable. Procedure Note Vahe Godoy MD - 07/05/2023 PROCEDURE: MR ABDOMEN WITHOUT THEN WITH IV CONTRAST: 07/04/2023 CLINICAL INFORMATION: abnormal CT COMPARISON: CT scan abdomen and pelvis 05/11/[address] scan chest09/21/2020 LIVER: The visualized aspects of liver demonstrate diffuse fattyinfiltration without focal abnormality BILE DUCTS: No biliary ductal dilatation. GALLBLADDER: The gallbladder is present and appears contain stones. PANCREAS: Normal signal. No mass lesion. No pancreatic ductaldilatation. SPLEEN: There is mild splenomegaly ADRENAL GLANDS: There is a right adrenal nodule which appears contain fatand appears relatively stable compared prior exams KIDNEYS: No mass or hydronephrosis. LYMPHADENOPATHY: No enlarged lymph nodes. FREE FLUID: No ascites. BONES AND SOFT TISSUES: Otherwise unremarkable. IMPRESSION: No evidence of acute abnormality. Electronically signed by: Vahe Godoy MD 07/05/2023 08:30 AM EDTWorkstation: [id number] Clara Holbrook APRN [facility] MRI PROCEDURES documented in this encounter Visit Diagnoses Diagnosis Malignant neoplasm of upper-outer quadrant of right breast in female, estrogen receptor positive documented in this encounter Administered Medications Inactive Administered Medications - up to 3 most recent administrations Medication Order MAR Action Action Date Dose Rate Site gadobenate dimeglumine (Multihance) injection 20 mL 20 mL, Intravenous, Once in imaging, Starting on Sun07/04/23 at 1148, For 1 dose Given 07/04/2023 11:50 AM EDT 20 mL documented in this encounter Care Teams Medical Office Supervisor Relationship Specialty Start Date End Date Ricardo Contreras MD [address] [place] [address] PCP - General Jalil Marie MD [address] [place] [address] Consulting Physician Hematology 04/12/22 Barbie Jorgensen APRN [address] [place] [address] Nurse Practitioner Oncology 06/21/22 Clara Holbrook APRN [address] [place] [address] Nurse Practitioner Oncology 01/24/23 documented as of this encounter
--- OUTSIDE RECORDS SUMMARY | 2024-08-18 13:07 | XMS_ITS | Encounter Summary ---
Author Organization [facility] nter Address [address] [place] [address] Care Team Providers Care Perinatal Social Worker Name Role Phone Ricardo Contreras MD Primary Care Provider + Jalil Marie MD Unavailable [phone] Barbie Jorgensen MANAGER WEB Unavailable [phone] Clara Holbrook MANAGER WEB Unavailable [phone] Reason for Visit * Imaging (Routine) - Closed Specialty Diagnoses / Procedures Referred By Contac t Referred To Contact Radiology Diagnoses Malignant neoplasm of upper-outer quadrant of right breast in female, estrogen receptor positive Procedures NM bone whole body Clara Holbrook, MANAGER WEB [address] [place] [address] [facility] [address] [place] [address] Phone: [phone] Fax: [phone] Referral ID Status Reason Start Date Expiration Date V isits Requested Visits Authorized [id number] Closed Specialty Services Required 04/17/2023 04/16/2024 2 2 Encounter Details Date Type Department Care Team (Latest Contact Info) Description 06/04/2023 12:50 PM EDT - 06/04/2023 11:59 PM EDT Hospital Encounter [facility] [address] [place] [address] Discharge Disposition: Home or Self Care Social [...] surgery 03/16/2022 ergocalciferol (Vitamin D2) 1.25 MG (34757 UT) capsule 1 capsule (50,000 Units) 1 [...] of procedure 01/18/2022 Lancets (OneTouch Delica Plus [id number]) misc in the morning, at noon, and [...] procedure anastrozole (Arimidex) 1 MG chemo tabletIndications:Deborah gntaylor neoplasm of upper-outer quadrant of right breast [...] By: Vahe Boyd MD Clara Holbrook APRN IMG [place] PROCEDURES documented in this encounter Visit Diagnoses Not on filedocumented in this encounter Administered Medications Inactive Administered Medications - up to 3 most recent administrations Medication Order MAR Action Action Date Dose Rate Site technetium Tc-99m mebrofenin (Choletec) radio-isotope injection 29 millicurie 29 millicurie, Intravenous, Once in imaging, Starting on 06/04/23 at 1019, For 1 dose Given 06/04/2023 12:00 PM EDT 29 millicuries documented in this encounter Care Teams Perinatal Social Worker Relationship Specialty Start Date End Date Ricardo Contreras MD [address] [place] [address] PCP - General Jalil Marie MD [address] [place] [address] Consulting Physician Hematology 04/12/22 Barbie Jorgensen APRN [address] [place] [address] Nurse Practitioner Oncology 06/21/22 Clara Holbrook APRN [address] [place] [address] Nurse Practitioner Oncology 01/24/23 documented as of this encounter
--- OUTSIDE RECORDS SUMMARY | 2024-08-18 13:07 | XMS_ITS | Encounter Summary ---
Author Organization [facility] nter Address [address] [place] [address] Care Team Providers Care Paper Stacker Name Role Phone Ricardo Contreras MD Primary Care Provider + Jalil Marie MD Unavailable [phone] Barbie Jorgensen WEB DESIGN SPECIALIST Unavailable [phone] Clara Holbrook WEB DESIGN SPECIALIST Unavailable Reason for Referral * Medications - Closed Specialty Diagnoses / Procedures Referred By Contcurly t Referred To Contact Sang Smith DO [address] [place] [address] Referral ID Status Reason Start Date Expiration Date Visits Re quested Visits Authorized [id number] Closed 1 1 Reason for Visit * Reason Comments Back Pain Encounter Details Date Type Department Care Team (Late st Contact Info) Description 06/14/2023 6:46 PM EDT - 06/14/2023 10:32 PM EDT Emergency [facility] EMERGENCY DEPARTMENT [address] [place] [address] Sang Smith DO [address] [place] [address] Lumbar radiculopathy (Primary Dx) Discharge Disposition: Home or Self Care Social [...] AM EST documented as of this encounter Last Filed Vital Signs Vital Sign Reading Time Taken Comments Blood Pressure 134/78 06/14/2023 9:38 PM EDT Pulse 76 06/14/2023 9:38 PM EDT Temperature 36.9 ??C (98.5 ??F) 06/14/2023 6:17 PM ED T Respiratory Rate 20 06/14/2023 9:38 PM EDT Oxygen Saturation 98% 06/14/2023 9:38 PM EDT Inhaled Oxygen Concentration - - Weight 85.7 kg (189 lb) 06/14/2023 6:17 PM EDT Height 162.6 cm (5' 4 ) 06/14/2023 6:17 PM EDT Body Mass Index 32.44 06/14/2023 6:17 PM EDT documented in this encounter Medications at Time of Discharge [...] surgery 03/16/2022 ergocalciferol (Vitamin D2) 1.25 MG (94375 UT) capsule 1 capsule (50,000 Units) 1 [...] of procedure 01/18/2022 Lancets (OneTouch Delica Plus [id number]) [facility] in the morning, at noon, and at [...] 10/25/2022 08/06/2023 documented as of this encounter ED Notes * Sang Smith DO - 06/14/2023 7:38 PM EDT HPI Chief Complaint Patient presents with ??? Back Pain Catie Martinez is a 52 y.o. female who presents to the ED for evaluation of back pain. Pt states chronic lower left side back pain located just below belt line radiating down Left leg that worsened a week ago. Pt c/o intermittent numbness to inner thighs and few episodes urinary incontinence. Patient denies any fever/chills, middle back pain or any other associated symptoms or modifying factors. Yarely Coma Scale Score: 15 Patient History Past Medical History: Diagnosis Date ??? Anxiety ??? Breast cancer right breast nipple ??? Depression ??? Diabetes mellitus GLUCOMETER ??? Full dentures ??? GERD (gastroesophageal reflux disease) ??? Hyperlipidemia ??? Hypertension ??? Overactive bladder ??? Wears eyeglasses Past Surgical History: Procedure Laterality Date ??? ABSCESS DRAINAGE x 2 ??? BI US GUIDED BREAST LOCALIZATION AND BIOPSY RIGHT Right 07/08/2020 BI US GUIDED BREAST LOCALIZATION AND BIOPSY RIGHT PMC D DIAG IMG ??? CT CHEST ANGIOGRAM W AND/OR WO IV CONTRAST 08/06/2019 CT CHEST ANGIOGRAM W AND/OR WO IV CONTRAST PMC D DIAG IMG ??? CT CHEST ANGIOGRAM W AND/OR WO IV CONTRAST 02/11/2021 CT CHEST ANGIOGRAM W AND/OR WO IV CONTRAST PMC D DIAG IMG ??? ESOPHAGOGASTRODUODENOSCOPY ??? FOOT SURGERY Right ??? MASTECTOMY Right 07/2020 ??? NECK SURGERY plate due to ruptured disc ??? NOSE SURGERY ??? SHOULDER SURGERY Bilateral Family History Problem Relation Name Age of Onset ??? Breast cancer Maternal Grandmother Social History Tobacco Use ??? Smoking status: Former Packs/day: 1.50 Years: 20.00 Pack years: 30.00 Types: Cigarettes Quit date: 2018 Years since quittin.7 Passive exposure: Current ??? Smokeless tobacco: Never Vaping Use ??? Vaping Use: Former Substance Use Topics ??? Alcohol use: Never ??? Drug use: Never Review of Systems Review of Systems Constitutional: Negative for activity change, appetite change, chills, fatigue and fever. HENT: Negative for ear pain, nosebleeds, sneezing, sore throat and trouble swallowing. Eyes: Negative for pain, discharge and visual disturbance. Respiratory: Negative for cough and shortness of breath. Cardiovascular: Negative for chest pain, palpitations and leg swelling. Gastrointestinal: Negative for abdominal pain, blood in stool, constipation, diarrhea, nausea and vomiting. Endocrine: Negative for polydipsia and polyuria. Genitourinary: Negative for difficulty urinating, dysuria, flank pain and urgency. Urinary incontinence Musculoskeletal: Positive for back pain. Negative for joint swelling and neck stiffness. Skin: Negative for rash and wound. Allergic/Immunologic: Negative for environmental allergies. Neurological: Positive for numbness. Negative for dizziness, tremors, syncope, light-headedness andheadaches. Psychiatric/Behavioral: Negative for confusion, hallucinations and suicidal ideas. Physical Exam ED Triage Vitals [06/14/23 1817] Temp Heart Rate Resp BP 98.5 ??F (36.9 ??C) 74 18 146/74 SpO2 Temp Source Heart Rate Source Patient Position 100 % Oral -- -- BP Location FiO2 (%) -- -- Physical Exam Vitals and nursing note reviewed. Constitutional: General: She is awake. She is not in acute distress. Appearance: Normal appearance. She is well-developed. She is not ill-appearing or diaphoretic. HENT: Head: Normocephalic and atraumatic. Jaw: No trismus or swelling. Right Ear: External ear normal. Left Ear: External ear normal. Nose: Nose normal. Eyes: General: No scleral icterus. Right eye: No discharge. Left eye: No discharge. Extraocular Movements: Extraocular movements intact. Conjunctiva/sclera: Conjunctivae normal. Pupils: Pupils are equal, round, and reactive to light. Cardiovascular: Rate and Rhythm: Normal rate and regular rhythm. Pulses: Normal pulses. Heart sounds: Normal heart sounds. No murmur heard. No gallop. Pulmonary: Effort: Pulmonary effort is normal. No tachypnea, bradypnea or respiratory distress. Breath sounds: Normal breath sounds. No decreased breath sounds, wheezing, rhonchi or rales. Chest: Chest wall: No tenderness. Abdominal: General: Bowel sounds are normal. There is no distension. Palpations: Abdomen is soft. Tenderness: There is no abdominal tenderness. There is no right CVA tenderness, left CVA tenderness, guarding or rebound. Musculoskeletal: General: No swelling, deformity or signs of injury. Normal range of motion. Cervical back: Normal range of motion and neck supple. Lumbar back: Tenderness (left lower) present. Right lower leg: No edema. Left lower leg: No edema. Comments: Positive straight leg raise left Skin: General: Skin is warm and dry. Capillary Refill: Capillary refill takes less than 2 seconds. Coloration: Skin is not jaundiced. Findings: No erythema or rash. Neurological: General: No focal deficit present. Mental Status: She is alert and oriented to person, place, and time. Cranial Nerves: No cranial nerve deficit. Motor: No weakness. Coordination: Coordination is intact. Coordination normal. Psychiatric: Attention and Perception: Attention normal. Mood and Affect: Mood normal. Speech: Speech normal. Behavior: Behavior normal. Behavior is cooperative. Judgment: Judgment normal. Labs Reviewed - No data to display Radiology Reviewed - No data to display ED Course & MDM pain controlled, meds written, no significant stenosis or disc bulges on MRI, stable for discharge MDM Diagnoses as of 06/14/232215 Lumbar radiculopathy No orders to display Irina Gaffney scribing in the presence of Sang Smith DO. Sang Smith DO 06/14/232206 * Adelita Watts RN - 06/14/2023 6:14 PM EDT Pt presents to the ED via POV for eval of worsening chronic lower back pain that radiates into LLE x 1 wk. Pt also reports numbness to inner thighs as well with a few episodes of urinary in continence. documented in this encounter Plan of Treatment Not on file documented as of this encounter Procedures Procedure Name Priority Date/Time Associated Diagnosis Comments MR LUMBAR SPINE WO CONTRAST STAT 06/14/2023 8:55 PM EDT documented in this encounter Results * MR lumbar spine wo contrast (06/14/2023 8:55 PM EDT) Anatomical Region Laterality Modality Spine, L-spine Magnetic Resonan ce 06/14/2023 8:55 PM EDT Impressions 06/14/2023 9:18 PM EDT 1. Mild multilevel degenerative change including disk disease and facet arthropathy. No significant bulge or herniation. No evidence of significant stenosis. 2. No acute bony abnormality. Report Sign Date: 06/14/2023 9:18 PM, Electronically Signed By: Roverto Rucker MD Narrative 06/14/2023 9:18 PM EDT MR LUMBAR SPINE WO CONTRAST: 06/14/2023 8:55 PM CLINICAL HISTORY: Low back pain, cauda equina syndrome suspected. MR SPINE TECHNIQUE: This MR study consists of multiple sagittal and axial images of the lumbar spine utilizing T1, T2 and gradient echo acquisitions. COMPARISON: 08/17/2022 ALIGNMENT: Lordosis is maintained. No malalignment appreciated otherwise. VERTEBRAE: Normal height. Degenerative endplate changes. No aggressive marrow signal abnormality. INTERVERTEBRAL DISKS: Multilevel disk disease is noted with disk desiccation and disk space narrowing. No significant bulge or herniation. No evidence of stenosis. POSTERIOR ELEMENTS: No focal abnormality. SPINAL CORD: Normal signal and contour throughout the field of view. SOFT TISSUES: Renal cysts. Remaining soft tissues are grossly within normal limits as visualized. Procedure Note Roverto Rucker MD - 06/14/2023 MR LUMBAR SPINE WO CONTRAST: 06/14/2023 8:55 PM CLINICAL HISTORY: Low back pain, cauda equina syndrome suspected. MR SPINE TECHNIQUE: This MR study consists of multiple sagittal and axialimages of the lumbar spine utilizing T1, T2 and gradient echoacquisitions. COMPARISON: 08/17/2022 ALIGNMENT: Lordosis is maintained. No malalignment appreciatedotherwise. VERTEBRAE: Normal height. Degenerative endplate changes. No aggressivemarrow signal abnormality. INTERVERTEBRAL DISKS: Multilevel disk disease is noted with diskdesiccation and disk space narrowing. No significant bulge or herniation.No evidence of stenosis. POSTERIOR ELEMENTS: No focal abnormality. SPINAL CORD: Normal signal and contour throughout the field of view. SOFT TISSUES: Renal cysts. Remaining soft tissues are grossly withinnormal limits as visualized. IMPRESSION: 1. Mild multilevel degenerative change including disk disease and facetarthropathy. No significant bulge or herniation. No evidence ofsignificant stenosis. 2. No acute bony abnormality. Report Sign Date: 06/14/2023 9:18 PM, Electronically Signed By: Roverto Oconnor MD Sang JOHNSON MRI PROCEDURES documented in this encounter Visit Diagnoses Diagnosis Lumbar radiculopathy- Primary Thoracic or lumbosacral neuritis or radiculitis, unspecified documented in this encounter Administered Medications Inactive Administered Medications - up to 3 most recent administrations Medication Order MAR Action Action Date Dose Rate Site HYDROmorphone (Dilaudid) injection 2 mg 2 mg, Intramuscular, Once, On Nikki 06/14/23 at 1945, For 1 dose Given 06/14/2023 9:03 PM EDT 2 mg Right Ventrogluteal documented in this encounter Active and Recently Administered Medications Times are shown in EDT. Scheduled Medication Order 06/12/2023 06/13/2023 06/14/2023 HYDROmorphone (Dilaudid) injection 2 mg (COMPLETED) 2 mg, Intramuscular, Once, On Nikki 06/14/23 at 1945, For 1 dose 2102 (Given - Provid er: Chris Mendoza RN) documented in this encounter Care Teams Paper Stacker Relationship Specialty Start Date End Date Ricardo Contreras MD [address] [place], [place] [id number] PCP - General Jalil Marie MD [address] [place] [address] Consulting Physician Hematology 04/12/22 Barbie Jorgensen APRN [address] [place] [address] Nurse Practitioner Oncology 06/21/22 Clara Holbrook APRN [address] [place] [address] Nurse Practitioner Oncology 01/24/23 documented as of this encounter
--- OUTSIDE RECORDS SUMMARY | 2024-08-18 13:07 | XMS_ITS | Encounter Summary ---
Author Organization [facility] nter Address [address] [place] [address] Care Team Providers Care Forestry Adviser Name Role Phone Ricardo Contreras MD Primary Care Provider + Jalil Marie MD Unavailable [phone] Barbie Jorgensen BUYER LIAISON Unavailable [phone] Clara Holbrook BUYER LIAISON Unavailable [phone] Reason for Visit * Reason Comments Leg Pain Right lower leg cram ping, redness, tender and warm to touch. Encounter Details Date Type Department Care Team (Late st Contact Info) Description 08/24/2023 9:00 AM EST Office Visit [facility] [address] [place] [id number] Heena Acosta [address] [place] [address] Cellulitis of right lower leg (Primary Dx) Social History Tobacco Use Types Packs/Day Years [...] Mass Index 32.1 08/24/2023 9:22 AM EST documented in this encounter Progress Notes * Heena Brownaníbal - 08/24/2023 9:00 AM EST Subjective Patient ID: Catie Martinez is a 52 y.o. female who presents for Leg Pain (Right lower leg cramping, redness, tender and warm to touch.). HPI See above Review of Systems Constitutional: Negative. Respiratory: Negative. Cardiovascular: Negative. Gastrointestinal: Negative. Genitourinary: Negative. Musculoskeletal: Right lower extremity pain noted. Skin: Right lower leg mild redness noted. No streaking noted. Allergic/Immunologic: Negative. Neurological: Negative. Psychiatric/Behavioral: Negative. Objective Visit Vitals BP 122/78 Pulse 74 Temp 97.8 ??F (36.6 ??C) (Oral) Resp 18 Ht 5' 4 (1.626 m) Wt 187 lb (84.8 kg) SpO2 97% BMI 32.10 kg/m?? Smoking Status Former BSA 1.9 m?? Physical Exam Constitutional: Appearance: Normal appearance. Cardiovascular: Rate and Rhythm: Normal rate and regular rhythm. Pulses: Normal pulses. Heart sounds: Normal heart sounds. Pulmonary: Effort: Pulmonary effort is normal. Breath sounds: Normal breath sounds. Abdominal: General: Abdomen is flat. Palpations: Abdomen is soft. Skin: General: Skin is warm and dry. Capillary Refill: Capillary refill takes less than 2 seconds. Comments: Localized mild tenderness, redness, no streaking, no purulence around anterior and posterior right tibialis noted. No limited ROM on right lower extremity noted. Neurological: General: No focal deficit present. Mental Status: She is alert and oriented to person, place, and time. Psychiatric: Mood and Affect: Mood normal. Behavior: Behavior normal. Assessment/Plan 1. Cellulitis of right lower leg Other orders - dicloxacillin (Dynapen) 250 MG capsule; Take 2 capsules (500 mg) by mouth in the morning, at noon, in the evening, and at bedtime for 7 days. Nontoxic appearing. Advised F/U with pcp in 2-3 days. Go to ED with any new or worsening s/s. Meds discussed including adverse events. Pt agreeable to tx and plan. documented in this encounter Miscellaneous Notes * Addendum Note - Heena Acosta - 08/24/2023 9:00 AM ESTAddended by: HEENA ACOSTA on: 08/24/2023 10:55 AM Modules accepted: Orders documented in this encounter Plan of Treatment Not on file documented as of this encounter Visit Diagnoses Diagnosis Cellulitis of right lower leg- Primary documented in this encounter Care Teams Forestry Adviser Relationship Specialty Start Date End Date Ricardo Contreras MD [address] [place] [address] PCP - General Jalil Marie MD [address] [place] [address] Consulting Physician Hematology 04/12/22 Barbie Jorgensen APRN [address] [place] [address] Nurse Practitioner Oncology 06/21/22 Clara Holbrook APRN [address] [place] [address] Nurse Practitioner Oncology 01/24/23 documented as of this encounter
--- OUTSIDE RECORDS SUMMARY | 2024-08-18 13:07 | XMS_ITS | Encounter Summary ---
Author Organization [facility] nter Address [address] [place], [place] [id number] [place] [id number] Care Team Providers Care Engineering Group Leader Name Role Phone Ricardo Contreras MD Primary Care Provider + Jalil Marie MD Unavailable [phone] Barbie Jorgensen CLAM SHOVEL OPERATOR Unavailable [phone] Clara Holbrook CLAM SHOVEL OPERATOR Unavailable [phone] Encounter Details Date Type Department Care Team (Latest Contact Info) Description 07/04/2023 Travel Social History Tobacco Use Types Packs/Day [...] on filedocumented in this encounter Care Teams Engineering Group Leader Relationship Specialty Start Date End Date Ricardo Contreras MD [address] [place] [address] PCP - General Jalil Marie MD [address] [place] [address] Consulting Physician Hematology 04/12/22 Barbie Jorgensen APRN [address] [place] [address] Nurse Practitioner Oncology 06/21/22 Clara Holbrook APRN [address] [place] [address] Nurse Practitioner Oncology 01/24/23 documented as of this encounter
--- OUTSIDE RECORDS SUMMARY | 2024-08-18 13:07 | XMS_ITS | Encounter Summary ---
Author Organization [facility] nter Address [address] [place] [address] [place] [address] Care Team Providers Care Home And School Visitor Name Role Phone Ricardo Contreras MD Primary Care Provider + Jalil Marie MD Unavailable [phone] Barbie Jorgensen DYNAMOMETER TESTER Unavailable [phone] Clara Holbrook DYNAMOMETER TESTER Unavailable [phone] Encounter Details Date Type Department Care Team (Latest Contact Info) Description 08/17/2023 3:26 PM EST - 08/17/2023 11:59 PM EST Hospital Encounter [facility] [address], [place] [id number] Type 2 diabetes mellitus with hyperglycemia; Dehydration; Candidiasis of vulva and vagina; Chronic migraine without aura, not intractable, without status migrainosus; Major depressive disorder, recurrent, mild; Hypoglycemia, unspecified; Cervicalgia; Disorder of bone, unspecified; Encounter for screening for depression; Dietary counseling and surveillance; Exercise counseling; Other jail (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 Discharge Disposition: Home or Self Care Social [...] the morning. Take morning of surgery 03/16/2022 cyanocobalamin (Vitamin B-12) 1000 MCG tablet Take 1 tablet (1,000 mcg) by mouth in the morning. 07/12/2023 ergocalciferol (Vitamin D2) 1.25 MG (76226 UT) capsule 1 capsule (50,000 Units) 1 [...] of procedure 01/18/2022 Lancets (OneTouch Delica Plus Mlozee38C) [facility] [place] in the morning, at noon, and at dinner time.. for testing 10/11/2022 levocetirizine (Xyzal) 5 MG tablet Take 1 tablet (5 mg) by mouth at bedtime. lisinopril 20 MG tablet Take 1 tablet [...] mg 1 (one) time per week. sertraline (Zoloft) 50 MG tablet Take 1 tablet (50 mg) by mouth in the morning. 08/14/2023 SSD 1 % cream APPLY TOPICALLY TO THE AFFECTED AREA IN THE MORNING AND AT BEDTIME 50 g 1 08/06/2023 SUMAtriptan (Imitrex) 100 MG tablet Take 1 [...] mouth in the morning. 30 tablet 2 07/16/2023 07/15/2024 calcium carbonate-vitamin D (Calcium 600+D) 600-5 MG-MCG tabletIndications:Deborah gnant neoplasm of upper-outer quadrant of right breast in female, estrogen receptor positive Take 2 tablets by mouth in the morning and at bedtime. 60 tablet 5 04/10/2023 10/01/2023 documented as of this encounter Plan of Treatment Not on file documented as of this encounter Procedures Procedure Name Priority Date/Time Associated Diagnosis Comments CREATINE KINASE (CK), TOTAL PLUS ISOENZYMES Routine 08/17/2023 3:33 PM EST Type 2 diabetes mellitus with hyperglycemia Dehydration Candidiasis of vulva and vagina Chronic migraine without aura, not intractable, without status migrainosus Major depressive disorder, recurrent, mild Hypoglycemia, unspecified Cervicalgia Disorder of bone, unspecified Encounter for screening for depression Dietary counseling and surveillance Exercise counseling Other manager social services (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 CBC WITH AUTO DIFFERENTIAL Routine 08/17/2023 3:33 PM EST Type 2 diabetes mellitus with hyperglycemia Dehydration Candidiasis of vulva and vagina Chronic migraine without aura, not intractable, without status migrainosus Major depressive disorder, recurrent, mild Hypoglycemia, unspecified Cervicalgia Disorder of bone, unspecified Encounter for screening for depression Dietary counseling and surveillance Exercise counseling Other manager social services (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 VITAMIN D, TOTAL Routine 08/17/2023 3:33 PM EST Type 2 diabetes mellitus with hyperglycemia Dehydration Candidiasis of vulva and vagina Chronic migraine without aura, not intractable, without status migrainosus Major depressive disorder, recurrent, mild Hypoglycemia, unspecified Cervicalgia Disorder of bone, unspecified Encounter for screening for depression Dietary counseling and surveillance Exercise counseling Other manager social services (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 TSH Routine 08/17/2023 3:33 PM EST Type 2 diabetes mellitus with hyperglycemia Dehydration Candidiasis of vulva and vagina Chronic migraine without aura, not intractable, without status migrainosus Major depressive disorder, recurrent, mild Hypoglycemia, unspecified Cervicalgia Disorder of bone, unspecified Encounter for screening for depression Dietary counseling and surveillance Exercise counseling Other manager social services (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 HEMOGLOBIN A1C Routine 08/17/2023 3:33 PM EST Type 2 diabetes mellitus with hyperglycemia Dehydration Candidiasis of vulva and vagina Chronic migraine without aura, not intractable, without status migrainosus Major depressive disorder, recurrent, mild Hypoglycemia, unspecified Cervicalgia Disorder of bone, unspecified Encounter for screening for depression Dietary counseling and surveillance Exercise counseling Other jail (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 FOLATE Routine 08/17/2023 3:33 PM EST Type 2 diabetes mellitus with hyperglycemia Dehydration Candidiasis of vulva and vagina Chronic migraine without aura, not intractable, without status migrainosus Major depressive disorder, recurrent, mild Hypoglycemia, unspecified Cervicalgia Disorder of bone, unspecified Encounter for screening for depression Dietary counseling and surveillance Exercise counseling Other manager social services (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 VITAMIN B12 Routine 08/17/2023 3:33 PM EST Type 2 diabetes mellitus with hyperglycemia Dehydration Candidiasis of vulva and vagina Chronic migraine without aura, not intractable, without status migrainosus Major depressive disorder, recurrent, mild Hypoglycemia, unspecified Cervicalgia Disorder of bone, unspecified Encounter for screening for depression Dietary counseling and surveillance Exercise counseling Other jail (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 LIPID PANEL Routine 08/17/2023 3:33 PM EST Type 2 diabetes mellitus with hyperglycemia Dehydration Candidiasis of vulva and vagina Chronic migraine without aura, not intractable, without status migrainosus Major depressive disorder, recurrent, mild Hypoglycemia, unspecified Cervicalgia Disorder of bone, unspecified Encounter for screening for depression Dietary counseling and surveillance Exercise counseling Other manager social services (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 COMPREHENSIVE METABOLIC PANEL Routine 08/17/2023 3:33 PM EST Type 2 diabetes mellitus with hyperglycemia Dehydration Candidiasis of vulva and vagina Chronic migraine without aura, not intractable, without status migrainosus Major depressive disorder, recurrent, mild Hypoglycemia, unspecified Cervicalgia Disorder of bone, unspecified Encounter for screening for depression Dietary counseling and surveillance Exercise counseling Other manager social services (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 documented in this encounter Results * Vitamin B12 (08/17/2023 3:33 PM EST) [facility] Vitamin B-12 291 254 - 1,320 pg/mL 08/17/2023 7:48 PM EST [facility] Blood Venous blood specimen / Unknown Venipuncture / Unknown 08/17/2023 3:33 PM EST 08/17/2023 3:33 PM EST Ricardo Contreras MD LAB BLOOD ORDERA BLES Performing Organization Address City/[facility]/ZIP Co de Phone Number [facility] [address] [place] [address], [place] [phone] * (ABNORMAL) Vitamin D 25 hydroxy (08/17/2023 3:33 PM EST) [facility] Vitamin D, Total 26.8(L) 30.0 - 100.0 ng/mL 08/17/2023 6:30 PM EST [facility] Blood Venous blood specimen / Unknown Venipuncture / Unknown 08/17/2023 3:33 PM EST 08/17/2023 3:33 PM EST Ricardo Contreras MD LAB BLOOD ORDERA BLES [facility] [address] [place] [address], [place] [phone] * Folate (08/17/2023 3:33 PM EST) [facility] Folate 6.0 3.1 - 17.5 ng/mL 08/17/2023 7:48 PM [facility] Blood Venous blood specimen / Unknown Venipuncture / Unknown 08/17/2023 3:33 PM EST 08/17/2023 3:33 PM EST Ricardo Contreras MD LAB BLOOD ORDERA BLES Performing Organization Address [facility]/ZIP Co de Phone Number [facility] [address] [place] [address], * TSH (08/17/2023 3:33 PM EST) TSH 0.938 0.358 - 3.740 uIU/mL 08/17/2023 7:48 PM [facility] Blood Venous blood specimen / Unknown Venipuncture / Unknown 08/17/2023 3:33 PM EST 08/17/2023 3:33 PM EST Ricardo Contreras MD LAB BLOOD ORDERA BLES Performing Organization Address [facility]/ZIP Co de Phone Number [facility] [address] [place] [address], [place] [phone] * (ABNORMAL) Lipid panel (08/17/2023 3:33 PM EST) Triglycerides 346(H) See comment below for reference ranges. mg/dL 08/17/2023 7:48 PM [facility] Cholesterol 208(H) Normal: <200 mg/dL Borderline: 200 - 240 mg/dL High Risk: >240 mg/dL mg/dL 08/17/2023 7:48 PM [facility] LDL Calculated 105(H) <=100 mg/dL 7:48 PM [facility] HDL 34(L) 39 - 60 mg/dL 08/17/2023 7:48 PM [facility] Cholesterol/HDL Ratio 6.1 08/17/2023 7:48 PM [facility] Blood Venous blood specimen / Unknown Venipuncture / Unknown 08/17/2023 3:33 PM EST 08/17/2023 3:33 PM EST Ricardo Contreras MD LAB BLOOD ORDERA BLES Performing Organization Address [facility] Co de Phone Number [facility] [address] [place] [address], * (ABNORMAL) Hemoglobin A1c (08/17/2023 3:33 PM EST) Hemoglobin A1C 7.3(H) 3.0 - 6.0 % 08/17/2023 7:04 PM EST [facility] Comment: Additional Reference Ranges: 6.0 - 9.0% Controlled Diabetic >9.0 ?Poorly Controlled Diabetic *Hemoglobin A1c is an FDA approved test for monitoring manager social services glucose control in individuals with diabetes. It is not an approved screening test for diagnosing type 1 and type 2 diabetes. Results of Hemoglobin A1c are not reliable in patients with chronic blood loss, consequent variable erythrocyte lifespan, hemolytic diseases, , and significant blood loss. MEAN BLOOD GLUCOSE 162.81 mg/dl 08/17/2023 7:04 PM [facility] Blood Venous blood specimen / Unknown Venipuncture / Unknown 08/17/2023 3:33 PM EST 08/17/2023 3:33 PM EST Ricardo Contreras MD LAB BLOOD ORDERA BLES Performing Organization Address [facility] Co de Phone Number [facility] [address] [place] [address], [place] [phone] * Creatine Kinase (CK) Total and Isoenzymes (08/17/2023 3:33 PM EST) CK Total 38 32 - 182 U/L 08/22/2023 2:08 PM EST [facility] (BE[facility]ER) Macro Type 2 0 Not Observed % 08/22/2023 2:08 PM EST [facility] ([facility]) CK-MM 100 97 - 100 % 08/22/2023 2:08 PM EST [facility] ([facility]) Macro Type 1 0 Not Observed % 08/22/2023 2:08 PM EST [facility] ([facility]) CK-MB 0 0 - 3 % 08/22/2023 2:08 PM EST [facility] ([facility]) CK-BB 0 0 % 08/22/2023 2:08 PM EST [facility] ([facility]) Blood Venous blood specimen / Unknown Venipuncture / Unknown 08/17/2023 3:33 PM EST 08/17/2023 3:33 PM EST Narrative [facility] (BEAKER) - 08/22/2023 2:08 PM EST Performed at: ??01 - [facility] [address], [place], [place] [id number] Can Reforming Machine Operator: Dago Ochoa PhD, Phone: ??[phone] Ricardo Contreras MD LAB BLOOD ORDERA BLES [facility] (JUAN C) [address] [place] [address], * (ABNORMAL) Comprehensive metabolic panel (08/17/2023 3:33 PM EST) Sodium 142 133 - 144 mmol/L 08/17/2023 7:48 PM [facility] Potassium 4.5 3.6 - 5.2 mmol/L 08/17/2023 7:48 PM [facility] Chloride 114(H) 98 - 107 mmol/L 08/17/2023 7:48 PM [facility] CO2 21 21 - 32 mmol/L 08/17/2023 7:48 PM [facility] Anion Gap 7 5 - 15 mmol/L 08/17/2023 7:48 PM [facility] BUN 18 7 - 18 mg/dL 08/17/2023 7:48 PM [facility] Creatinine 1.30(H) 0.55 - 1.02 mg/dL 08/17/2023 7:48 PM [facility] BUN/Creatinine Ratio 13.85 10.00 - 20.00 ratio 08/17/2023 7:48 PM [facility] Glucose 194(H) 70 - 110 mg/dL 08/17/2023 7:48 PM [facility] Calcium 9.0 8.5 - 10.1 mg/dL 08/17/2023 7:48 PM [facility] AST 8(L) 15 - 37 U/L 08/17/2023 7:48 PM [facility] ALT (SGPT) 19 13 - 56 U/L 08/17/2023 7:48 PM [facility] Alkaline Phosphatase 70 45 - 117 U/L 08/17/2023 7:48 PM [facility] Total Protein 7.2 6.4 - 8.4 g/dL 08/17/2023 7:48 PM [facility] Albumin 3.5 3.4 - 5.0 g/dL 08/17/2023 7:48 PM [facility] Globulin, Total 3.7 2.4 - 4.8 g/dL 08/17/2023 7:48 PM [facility] A/G Ratio 0.9 0.6 - 1.6 08/17/2023 7:48 PM [facility] Total Bilirubin 0.3 0.0 - 1.0 mg/dL 08/17/2023 7:48 PM [facility] eGFR 48.0(L) >60.0 - 200.0 mL/min/1.7 3m*2 08/17/2023 7:48 PM [facility] Blood Venous blood specimen / Unknown Venipuncture / Unknown 08/17/2023 3:33 PM EST 08/17/2023 3:33 PM EST Ricardo Contreras MD LAB BLOOD ORDERA BLES [facility] [address] [place] [address], * CBC auto differential (08/17/2023 3:33 PM EST) Auto WBC 8.4 3.0 - 11.3 10*3/uL LAB HEMATOLOGY METHOD 08/17/2023 5:57 PM [facility] RBC 4.90 3.45 - 5.40 10*6/uL LAB HEMATOLOGY METHOD 08/17/2023 5:57 PM [facility] Hemoglobin 14.2 10.0 - 16.0 g/dL LAB HEMATOLOGY METHOD 08/17/2023 5:57 PM [facility] Hematocrit 42.7 29.9 - 45.5 % LAB HEMATOLOGY METHOD 08/17/2023 5:57 PM [facility] MCV 87.2 78.2 - 101.8 fL LAB HEMATOLOGY METHOD 08/17/2023 5:57 PM [facility] MCH 29.0 26.4 - 33.3 pg LAB HEMATOLOGY METHOD 08/17/2023 5:57 PM [facility] MCHC 33.3 32.5 - 35.3 g/dL LAB HEMATOLOGY METHOD 08/17/2023 5:57 PM [facility] RDW 13.5 10.1 - 16.2 % LAB HEMATOLOGY METHOD 08/17/2023 5:57 PM [facility] MPV 8.2 6.4 - 10.4 fL LAB HEMATOLOGY METHOD 08/17/2023 5:57 PM [facility] Neutrophils % 59 43 - 83 % LAB HEMATOLOGY METHOD 08/17/2023 5:57 PM [facility] Lymphocytes % 35 10 - 42 % LAB HEMATOLOGY METHOD 08/17/2023 5:57 PM [facility] Monocytes % 5 1 - 14 % LAB HEMATOLOGY METHOD 08/17/2023 5:57 PM [facility] Eosinophils % 1 0 - 11 % LAB HEMATOLOGY METHOD 08/17/2023 5:57 PM [facility] Basophils % 1 0 - 2 % LAB HEMATOLOGY METHOD 08/17/2023 5:57 PM [facility] Neutrophils Absolute 4.90 3.40 - 7.00 10*3/uL LAB HEMATOLOGY METHOD 08/17/2023 5:57 PM [facility] Lymphocytes Absolute 2.90 0.40 - 3.90 10*3/uL LAB HEMATOLOGY METHOD 08/17/2023 5:57 PM [facility] Monocytes Absolute 0.40 0.20 - 0.60 10*3/uL LAB HEMATOLOGY METHOD 08/17/2023 5:57 PM EST [facility] Eosinophils Absolute 0.10 0.00 - 0.90 10*3/uL LAB HEMATOLOGY METHOD 08/17/2023 5:57 PM EST [facility] Basophils Absolute 0.10 0.00 - 0.20 10*3/uL LAB HEMATOLOGY METHOD 08/17/2023 5:57 PM EST [facility] Platelets 252 122 - 454 10*3/uL LAB HEMATOLOGY METHOD 08/17/2023 5:57 PM EST [facility] Blood Venous blood specimen / Unknown Venipuncture / Unknown 08/17/2023 3:33 PM EST 08/17/2023 3:33 PM EST Ricardo Contreras MD LAB BLOOD ORDERA BLES [facility] [address] [phone] documented in this encounter Visit Diagnoses Diagnosis Type 2 diabetes mellitus with hyperglycemia Dehydration Candidiasis of vulva and vagina Chronic migraine without aura, not intractable, without status migrainosus Major depressive disorder, recurrent, mild Major depressive disorder, recurrent episode, mild Hypoglycemia, unspecified Cervicalgia Disorder of bone, unspecified Encounter for screening for depression Dietary counseling and surveillance Exercise counseling Other jail (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 documented in this encounter Care Teams Home And School Visitor Relationship Specialty Start Date End Date Ricardo Contreras MD [address] [place] [address] PCP - General Jalil Marie MD [address] [place] [address] Consulting Physician Hematology 04/12/22 Barbie Jorgensen APRN [address] [place] [id number] Nurse Practitioner Oncology 06/21/22 Clara Holbrook APRN [address] [place] [address] Nurse Practitioner Oncology 01/24/23 documented as of this encounter
--- OUTSIDE RECORDS SUMMARY | 2024-08-18 13:07 | XMS_ITS | Encounter Summary ---
Author Organization [facility] nter Address [address] [place], [place] [address] [place] [address] Care Team Providers Care College Sports Assistant Name Role Phone Ricardo Contreras MD Primary Care Provider + Jalil Marie MD Unavailable [phone] Barbie Jorgensen ANALYSIS INTERN Unavailable [phone] Clara Holbrook ANALYSIS INTERN Unavailable [phone] Encounter Details Date Type Department Care Team (Latest Contact Info) Description 07/10/2023 Travel Social History Tobacco Use Types Packs/Day [...] on filedocumented in this encounter Care Teams College Sports Assistant Relationship Specialty Start Date End Date Ricardo Contreras MD [address] [place] [address] PCP - General Jalil Marie MD [address] [place] [address] Consulting Physician Hematology 04/12/22 Barbie Jorgensen APRN [address] [place] [address] Nurse Practitioner Oncology 06/21/22 Clara Holbrook APRN [address] [place] [address] Nurse Practitioner Oncology 01/24/23 documented as of this encounter
--- OUTSIDE RECORDS SUMMARY | 2024-08-18 13:07 | XMS_ITS | Encounter Summary ---
Author Organization [facility] nter Address [address] [place], [place] [address] [place] [address] Care Team Providers Care Code Enforcement Officer Name Role Phone Ricardo Contreras MD Primary Care Provider + Jalil Marie MD Unavailable [phone] Barbie Jorgensen BAG INSPECTOR Unavailable [phone] Clara Holbrook BAG INSPECTOR Unavailable [phone] Encounter Details Date Type Department Care Team (Latest Contact Info) Description 07/24/2023 Travel Social History Tobacco Use Types Packs/Day [...] on filedocumented in this encounter Care Teams Code Enforcement Officer Relationship Specialty Start Date End Date Ricardo Contreras MD [address] [place] [address] PCP - General Jalil Marie MD [address] [place] [address] Consulting Physician Hematology 04/12/22 Barbie Jorgensen APRN [address] [place] [address] Nurse Practitioner Oncology 06/21/22 Clara Holbrook APRN [address] [place] [address] Nurse Practitioner Oncology 01/24/23 documented as of this encounter
--- OUTSIDE RECORDS SUMMARY | 2024-08-18 13:07 | XMS_ITS | Encounter Summary ---
Author Organization [facility] nter Address [address] [place], [place] [address] [place] [address] Care Team Providers Care Secretarial Teacher Name Role Phone Ricardo Contreras MD Primary Care Provider + Jalil Marie MD Unavailable [phone] Barbie Jorgensen PRODUCE INSPECTOR Unavailable [phone] Clara Holbrook PRODUCE INSPECTOR Unavailable [phone] Encounter Details Date Type Department Care Team (Latest Contact Info) Description 06/06/2023 Travel Social History Tobacco Use Types Packs/Day [...] on filedocumented in this encounter Care Teams Secretarial Teacher Relationship Specialty Start Date End Date Ricardo Contreras MD [address] [place] [address] PCP - General Jalil Marie MD [address] [place] [address] Consulting Physician Hematology 04/12/22 Barbie Jorgensen APRN [address] [place] [address] Nurse Practitioner Oncology 06/21/22 Clara Holbrook APRN [address] [place] [address] Nurse Practitioner Oncology 01/24/23 documented as of this encounter
--- OUTSIDE RECORDS SUMMARY | 2024-08-18 13:07 | XMS_ITS | Encounter Summary ---
Author Organization [facility] nter Address [address] [place] [address] Care Team Providers Care Temporary Staff Accountant Name Role Phone Ricardo Contreras MD Primary Care Provider + Jalil Marie MD Unavailable [phone] Barbie Jorgensen PERSONAL TRAINER Unavailable [phone] Clara Holbrook PERSONAL TRAINER Unavailable [phone] Reason for Visit * Reason Comments Neck Mass Patient is here for neck mass left neck under ear that goes up and down at times and is tender at times patient had a CT scan done at [facility] patient has history of breast cancer since 2019 * Consultation (Routine) - Closed Specialty Diagnoses / Procedures Referred By Frantz moreno Referred To Contact Otolaryngology Diagnoses Parotid mass Procedures NM OFFICE/OUTPATIENT [facility] 60-74 MINUTES Clara Holbrook APRN [address] [place] [address] [facility] Otolaryngology [address] [place] [address] Referral ID Status Reason Start Date Expiration Date V isits Requested Visits Authorized [id number] Closed Specialty Services Required 05/15/2023 05/14/2024 1 1 Encounter Details Date Type Department Care Team (Latest Contact Info) Description 07/24/2023 2:15 PM EST Office Visit [facility] OTOLARYNGOLOGY PRACTICE [address] [place] [address] Vahe Burrell DO [address] [place] [address] Warthin's tumor (Primary Dx); Parotid mass; Temporomandibular joint disorder; Referred otalgia of both ears Social History Tobacco Use Types Packs/Day Years [...] Sign Reading Time Taken Comments Blood Pressure 125/77 07/24/2023 2:42 PM EST Pulse 70 07/24/2023 2:42 PM EST Temperature - - Respiratory Rate - - Oxygen Saturation - - Inhaled Oxygen Concentration - - Weight 85.7 kg (189 lb) 07/24/2023 2:42 PM EST Height 162.6 cm (5' 4 ) 07/24/2023 2:42 PM EST Body Mass Index 32.44 07/24/2023 2:42 PM EST documented in this encounter Progress Notes * Vahe Burrell DO - 07/24/2023 2:15 PM EST Subjective Patient ID: Catie Martinez is a 52 y.o. female who presents for Neck Mass (Patient is here for neck mass left neck under ear that goes up and down at times and is tender at times patient had a CT scan done at [facility] patient has history of breast cancer since 2019 ). Visit Vitals BP 125/77 Pulse 70 Ht 5' 4 (1.626 m) Wt 189 lb (85.7 kg) BMI 32.44 kg/m?? OB Status Postmenopausal Smoking Status Former BSA 1.91 m?? HPI : Neck Pain This is a chronic problem. The current episode started more than 1 year ago. The problem occurs constantly. The pain is present in the left side. The pain is mild. Review of Systems Musculoskeletal: Positive for neck pain. All other systems reviewed and are negative. Objective Physical Exam Constitutional: General: She is not in acute distress. Appearance: She is well-developed. She is not diaphoretic. HENT: Head: Normocephalic and atraumatic. Jaw: There is normal jaw occlusion. Salivary Glands: Right salivary gland is not diffusely enlarged or tender. Left salivary gland is not diffusely enlarged or tender. Right Ear: Tympanic membrane, ear canal and external ear normal. Left Ear: Tympanic membrane, ear canal and external ear normal. Nose: Nose normal. No septal deviation, congestion or rhinorrhea. Right Turbinates: Not enlarged. Left Turbinates: Not enlarged. Mouth/Throat: Lips: [employer]. No lesions. Mouth: Mucous membranes are moist. Tongue: No lesions. Tongue does not deviate from midline. Palate: No lesions. Pharynx: Oropharynx is clear. Uvula midline. Eyes: General: No scleral icterus. Extraocular Movements: Extraocular movements intact. Conjunctiva/sclera: Conjunctivae normal. Pupils: Pupils are equal, round, and reactive to light. Neck: Thyroid: No thyroid mass, thyromegaly or thyroid tenderness. Trachea: Trachea and phonation normal. Comments: Left neck 1.9 cm parotid mass Pulmonary: Effort: Pulmonary effort is normal. Breath sounds: No stridor. Musculoskeletal: Cervical back: Normal range of motion and neck supple. Skin: General: Skin is warm and dry. Neurological: Mental Status: She is alert. Labs Reviewed - No data to display Assessment/Plan 1. Warthin's tumor 2. Parotid mass - Ambulatory referral/appointment with ENT 3. Temporomandibular joint disorder Comments: rec soft diet no chewing gum or hard candy rec tylenol/ibuprofen rec kenalog injection 4. 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 Parotid mass Swelling, mass, or lump in head and neck Temporomandibular joint disorder Unspecified temporomandibular joint disorders Referred otalgia of both ears documented in this encounter Care Teams Temporary Staff Accountant Relationship Specialty Start Date End Date Ricardo Contreras MD [address] [place] [address] PCP - General Jalil Marie MD [address] [place] [address] Consulting Physician Hematology 04/12/22 Barbie Jorgensen APRN [address] [place] [address] Nurse Practitioner Oncology 06/21/22 Clara Holbrook APRN [address] [place] [address] Nurse Practitioner Oncology 01/24/23 documented as of this encounter
--- OUTSIDE RECORDS SUMMARY | 2024-08-18 13:07 | XMS_ITS | Encounter Summary ---
Author Organization [facility] nter Address [address] [place] [address] Care Team Providers Care Telephonic Rn Name Role Phone Ricardo Contreras MD Primary Care Provider + Jalil Marie MD Unavailable [phone] Barbie Jorgensen FIRE DEPARTMENT MARINE ENGINEER Unavailable [phone] Clara Holbrook FIRE DEPARTMENT MARINE ENGINEER Unavailable [phone] Reason for Referral * Diagnostic Medical (Routine) - Closed Specialty Diagnoses / Procedures Referred By Contac t Referred To Contact Gastroenterology Diagnoses Diarrhea, unspecified type Procedures Colonoscopy MN COLONOSCOPY FLX DX W/COLLJ SPEC WHEN PFRMD MN COLONOSCOPY W/BIOPSY SINGLE/MULTIPLE MN COLSC FLX W/RMVL OF TUMOR POLYP LESION SNARE TQ MN COLON CA SCRN NOT HI RSK IND MN COLORECTAL SCRN; HI RISK IND Joe Brewster MD [address] [place] [address] [facility] [address] 3[address] [place] [address] Referral ID Status Reason Start Date Expiration Date V isits Requested Visits Authorized [id number] Closed Perform Procedure 08/08/2023 08/07/2024 1 1 Reason for Visit * Reason Comments Colonoscopy * Consultation (Routine) - Closed Specialty Diagnoses / Procedures Referred By Contcurly t Referred To Contact General Surgery Diagnoses Diarrhea, unspecified type Procedures MN OFFICE/OUTPATIENT [facility] HIGH MDM 60-74 MINUTES Clara Holbrook APRN [address] [place] [address] Joe Brewster MD [address] [place] [address] Referral ID Status Reason Start Date Expiration Date V isits Requested Visits Authorized [id number] Closed Specialty Services Required 01/24/2023 01/24/2024 1 1 Encounter Details Date Type Department Care Team (Late st Contact Info) Description 07/10/2023 1:00 PM EDT Office Visit [facility] GENERAL SURGERY PRACTICE [address] [place] [address] Anastasiya Mccormick NP [address] [place] [address] Diarrhea, unspecified type (Primary Dx) Social History Tobacco Use Types [...] AM EST documented as of this encounter Progress Notes * Anastasiya Mccormick NP - 07/10/2023 1:00 PM EDT Subjective Reason for Visit: Colonoscopy HPI: The patient is a 52 y.o. female who presents for evaluation for colonoscopy. Reported symptoms: none Personal history: cancer breast Family history: no known risk factors Previous colonoscopy: none Procedure risks: none Objective There were no vitals taken for this visit. (STADIUM MANAGER states pt refused vitals today at visit) Physical Exam Constitutional: Appearance: Normal appearance. HENT: Head: Normocephalic and atraumatic. Right Ear: External ear normal. Left Ear: External ear normal. Eyes: Conjunctiva/sclera: Conjunctivae normal. Pupils: Pupils are equal, round, and reactive to light. Pulmonary: Effort: Pulmonary effort is normal. Abdominal: General: Bowel sounds are normal. Palpations: Abdomen is soft. Tenderness: There is no abdominal tenderness. There is no guarding. Musculoskeletal: General: Normal range of motion. Skin: General: Skin is warm and dry. Coloration: Skin is not jaundiced. Neurological: General: No focal deficit present. Mental Status: She is alert and oriented to person, place, and time. Mental status is at baseline. Psychiatric: Mood and Affect: Mood normal. Behavior: Behavior normal. Assessment/Plan The patient understands and does wish to proceed with diagnostic colonoscopy. Reason for Procedure: Symptomatic person Diarrhea- that started after taking mounjaro The rationale for colonoscopy with possible biopsy, possible polypectomy, with IV sedation as well as all risks, benefits, and alternatives were discussed with the patient in detail. Risks including but not limited to perforation, bleeding, need for blood transfusion or emergent surgery, and missedneoplasm were reviewed in detail with the patient. The patient demonstrates full understanding and w ishes to proceed with the procedure. Encounter Diagnosis Name Primary? Diarrhea, unspecified type Yes documented in this encounter Plan of Treatment Scheduled Orders Name Type Priority Associated Diagnoses Orde r Schedule Colonoscopy Endoscopy Routine Diarrhea, unspecified type Expected: 10/08/2023, Expires: 07/10/2024 documented as of this encounter Visit Diagnoses Diagnosis Diarrhea, unspecified type- Primary documented in this encounter Care Teams Telephonic Rn Relationship Specialty Start Date End Date Ricardo Contreras MD [address] [place] [address] PCP - General Jalil Marie MD [address] [place] [address] Consulting Physician Hematology 04/12/22 Barbie Jorgensen APRN [address] [place] [address] Nurse Practitioner Oncology 06/21/22 Clara Holbrook APRN [address] [place] [address] Nurse Practitioner Oncology 01/24/23 documented as of this encounter
--- OUTSIDE RECORDS SUMMARY | 2024-08-18 13:07 | XMS_ITS | Encounter Summary ---
Author Organization [facility] nter Address [address] [place], [place] [address] [place] [address] Care Team Providers Care Planetarium Sky Show Technician Name Role Phone Ricardo Contreras MD Primary Care Provider + Jalil Marie MD Unavailable [phone] Barbie Jorgensen RETREAD BUILDER Unavailable [phone] Clara Holbrook RETREAD BUILDER Unavailable [phone] Encounter Details Date Type Department Care Team (Latest Contact Info) Description 06/14/2023 Travel Social History Tobacco Use Types Packs/Day [...] on filedocumented in this encounter Care Teams Planetarium Sky Show Technician Relationship Specialty Start Date End Date Ricardo Contreras MD [address] [place] [address] PCP - General Jalil Marie MD [address] [place] [address] Consulting Physician Hematology 04/12/22 Barbie Jorgensen APRN [address] [place] [address] Nurse Practitioner Oncology 06/21/22 Clara Holbrook APRN [address] [place] [address] Nurse Practitioner Oncology 01/24/23 documented as of this encounter
--- OUTSIDE RECORDS SUMMARY | 2024-08-18 13:07 | XMS_ITS | Encounter Summary ---
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, estrogen receptor positive Barbie Jorgensen, LONI [address] [place] [address] [facility] Med Onc [address] [place] [address] Referral ID Status Reason Start Date Expiration Date V isits Requested Visits Authorized [id number] Authorized 07/24/2023 01/20/2024 2 2 Encounter Details Date Type Department Care Team (Latest Contact Info) Description 07/24/2023 2:59 PM EST - 07/24/2023 11:59 PM EST Hospital Encounter [facility] MEDICAL ONCOLOGY [address] [place] [address] 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 07/12/2023 ergocalciferol (Vitamin D2) 1.25 MG (88444 UT) capsule 1 capsule (50,000 Units) 1 [...] of procedure 01/18/2022 Lancets (OneTouch Delica Plus [id number]) misc in the morning, at noon, and [...] procedure anastrozole (Arimidex) 1 MG chemo tabletIndications:Deborah dumont neoplasm of upper-outer quadrant of right breast in female, estrogen receptor positive Take 1 tablet (1 mg total) by mouth in the morning. 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 Protect from light. Do not shake. Given 07/24/2023 3:35 PM EST 60 mg Left Upper Arm (Back) documented in this encounter Care Teams Patient Accounts Specialist Relationship Specialty Start Date End Date Ricardo Contreras MD [address] [place] [address] PCP - General Jalil Marie MD [address] [place] [address] Consulting Physician Hematology 04/12/22 Barbie Jorgensen APRN [address] [place] [address] Nurse Practitioner Oncology 06/21/22 Clara Holbrook APRN [address] [place] [address] Nurse Practitioner Oncology 01/24/23 documented as of this encounter
--- OUTSIDE RECORDS SUMMARY | 2024-08-18 13:07 | XMS_ITS | Encounter Summary ---
Author Organization [facility] nter Address [address] [place], [place] [address] [place] [address] Care Team Providers Care Sheet Metal Worker Apprentice Name Role Phone Ricardo Contreras MD Primary Care Provider + Jalil Marie MD Unavailable [phone] Barbie Jorgensen RN ONCOLOGY RESEARCH Unavailable [phone] Clara Holbrook RN ONCOLOGY RESEARCH Unavailable [phone] Encounter Details Date Type Department Care Team (Latest Contact Info) Description 07/16/2023 Travel Social History Tobacco Use Types Packs/Day [...] on filedocumented in this encounter Care Teams Sheet Metal Worker Apprentice Relationship Specialty Start Date End Date Ricardo Contreras MD [address] [place] [address] PCP - General Jalil Marie MD [address] [place] [address] Consulting Physician Hematology 04/12/22 Barbie Jorgensen APRN [address] [place] [address] Nurse Practitioner Oncology 06/21/22 Clara Holbrook APRN [address] [place] [address] Nurse Practitioner Oncology 01/24/23 documented as of this encounter
--- OUTSIDE RECORDS SUMMARY | 2024-08-18 13:07 | XMS_ITS | Encounter Summary ---
Author Organization [facility] nter Address [address] [place] [id number] Care Team Providers Care Personnel Scheduler Name Role Phone Ricardo Contreras MD Primary Care Provider + Jalil Marie MD Unavailable Barbie Jorgensen EMERGENCY ROOM PHYSICIAN Unavailable [phone] Clara Holbrook EMERGENCY ROOM PHYSICIAN Unavailable Encounter Details Date Type Department Care Team (Latest Contact Info) Description 06/06/2023 10:15 AM EDT Office Visit [facility] [address] [place] [address] Gregory Forrest MD [address] [place] [address] H/O breast reconstruction (Primary Dx) Social History Tobacco Use Types [...] as of this encounter Progress Notes * Gregory Danikas, MD - 06/06/2023 10:15 AM EDT Subjective : Patient ID: Catie Martinez is a 52 y.o. female. History of Present Illness: S/P exchange rt breast recon with fat tranfer, Alloderm/Saline implant.Left breast augm/pexy for symmetry with saline implant. Recent evaluation by Med Oncology with MRI revealed rt breast fat necrosis. Pt concerned with palpable nodules on right upper breast. Objective : Physical Exam Constitutional She appears well-developed and well-nourished. Eyes System normal. Pulmonary/Chest Effort normal. Skin Skin is warm. Psychiatric She has a normal mood and affect. Her behavior is normal. Jhon implants soft mobile. Jhon incisions healed well. No palpable axillary L. Nodes. Left nipple sensate. Rt upper breast soft tissue nodules. Assessment/Plan : 1. H/O breast reconstruction MRI revealed only fat necrosis. Pt has f/up with Dr Brewster this month. Has scheduled f/up with jania January 2024. Pt has imaging studies scheduled by Med Oncology. Pictures taken. documented in this encounter Plan of Treatment Not on file documented as of this encounter Visit Diagnoses Diagnosis H/O breast reconstruction- Primary documented in this encounter Care Teams Personnel Scheduler Relationship Specialty Start Date End Date Ricardo Contreras MD [address] [place] [address] PCP - General Jalil Marie MD [address] [place] [address] Consulting Physician Hematology 04/12/22 Barbie Jorgensen APRN [address] [place] [address] Nurse Practitioner Oncology 06/21/22 Clara Holbrook APRN [address] [facility] [address] [facility] [place] [address] Nurse Practitioner Oncology 01/24/23 documented as of this encounter
--- OUTSIDE RECORDS SUMMARY | 2024-08-18 13:07 | XMS_ITS | Encounter Summary ---
Author Organization [facility] n[facility] Address [address] [place] [address] Care Team Providers Care Decker Operator Name Role Phone Ricardo Contreras MD Primary Care Provider + Jalil Marie MD Unavailable [phone] Barbie Jorgensen VASCULAR NURSE Unavailable [phone] Clara Holbrook APRN Unavailable [phone] Reason for Referral * Imaging (Routine) - Closed Specialty Diagnoses / Procedures Referred By Contac t Referred To Contact Radiology Diagnoses Malignant neoplasm of upper-outer quadrant of right breast in female, estrogen receptor positive Procedures BI MR breast bilateral with and without contrast Clara Holbrook APRN [address] [place] [address] [facility] [address] [place] [address] Phone: [phone] Fax: [phone] Referral ID Status Reason Start Date Expiration Date V isits Requested Visits Authorized [id number] Closed Specialty Services Required 04/10/2023 06/09/2023 1 1 Reason for Visit * Imaging (Routine) - Closed Specialty Diagnoses / Procedures Referred By Contac t Referred To Contact Radiology Diagnoses Malignant neoplasm of upper-outer quadrant of right breast in female, estrogen receptor positive Procedures BI MR breast bilateral with and without contrast Holbrook, Clara, VASCULAR NURSE [address] [facility] [place] [address] [facility] [place] [address] [facility] [place] [address] Phone: [phone] Fax: [phone] Referral ID Status Reason Start Date Expiration Date V isits Requested Visits Authorized [id number] Closed Specialty Services Required 04/10/2023 06/09/2023 1 1 Encounter Details Date Type Department Care Team (Latest Contact Info) Description 05/29/2023 7:51 AM EDT - 05/29/2023 11:59 PM EDT Hospital Encounter [facility] [address] [place] [address] Malignant neoplasm of upper-outer quadrant [...] surgery 03/16/2022 ergocalciferol (Vitamin D2) 1.25 MG (30748 UT) capsule 1 capsule (50,000 Units) 1 [...] of procedure 01/18/2022 Lancets (OneTouch Delica Plus [id number]) [facility] [place] morning, at noon, and at [...] TIME FOR 10 DAYS. 15 g 10/13/2022 nitroglycerin (Nitrostat) 0.[address] 1 tablet (0.4 mg) under the tongue every 5 (five) minutes if needed for chest pain. May repeat dose every 5 minutes for up to 3 doses total. 30 tablet 11 05/31/2022 omeprazole (PriLOSEC) [address] capsule Take [...] Procedure Name Priority Date/Time Associated Diagnosis Comments BI MR BREAST BILATERAL W AND WO CONTRAST Routine 05/29/2023 9:08 AM EDT Malignant neoplasm of upper-outer quadrant of right breast in female, estrogen receptor positive documented in this encounter Results * BI MR breast bilateral with and without contrast (05/29/2023 9:08 AM EDT) Anatomical Region Laterality Modality Breast Bilateral Magnetic Resonan ce 05/29/2023 9:10 AM EDT Impressions 05/29/2023 12:29 PM EDT RIGHT BREAST: ??No evidence of malignancy. BI-RADS: ??2. ??Negative. LEFT BREAST: ??No evidence of malignancy. BI-RADS: ??2. ??Negative. The [place] [employer] recommends annual screening breast MRI in addition to mammography for women with a lifetime risk of breast cancer greater than 20%. ??Patient's are encouraged to discuss their individual risks of breast cancer with their referring health care Provider. Report Sign Date: 05/29/2023 12:29 PM, Electronically Signed By: Vahe Godoy MD Narrative 05/29/2023 12:29 PM EDT PROCEDURE: BI MR BREAST BILATERAL W AND WO CONTRAST: 05/29/2023 CLINICAL INFORMATION: breast cancer TECHNIQUE: ??The patient was placed prone in the bilateral dedicated 16 channel breast coil and images were obtained on the 3 Merry scanner. ??Bilateral simultaneous acquisitions were obtained with 0.8 mm axial slices during the following sequences: ??Precontrast STIR, precontrast T1 fat saturation, and three delayed T1 post contrast fat saturation images. ??The first post contrast images are obtained immediately after a power injection, weight adjusted dose of Omniscan and saline flush. ??Bilateral 3D reconstructions (maximal intensity projections), subtractions, and sagittal and coronal 2D reformations were performed on an independent work station. RIGHT BREAST: The patient is status post right-sided mastectomy. There is soft tissue stranding in fat necrosis surrounding a right breast implant which is likely postsurgical. There are no areas of suspicious enhancement or lymphadenopathy. LEFT BREAST: ??There is mild ??benign background breast parenchymal enhancement. There is a left breast implant in place. There are no areas of suspicious enhancement or lymphadenopathy. Procedure Note Vahe Godoy MD - 05/29/2023 PROCEDURE: BI MR BREAST BILATERAL W AND WO CONTRAST: 05/29/2023 CLINICAL INFORMATION: breast cancer TECHNIQUE: The patient was placed prone in the bilateral dedicated 16channel breast coil and images were obtained on the 3 Merry scanner.Bilateral simultaneous acquisitions were obtained with 0.8 mm axial slicesduring the following sequences: Precontrast STIR, precontrast T1 fatsaturation, and three delayed T1 post contrast fat saturation images. Thefirst post contrast images are obtained immediately after a powerinjection, weight adjusted dose of Omniscan and saline flush. [id number] reconstructions (maximal intensity projections), subtractions, andsagittal and coronal 2D reformations were performed on an independent workstation. RIGHT BREAST: The patient is status post right-sided mastectomy. There issoft tissue stranding in fat necrosis surrounding a right breast implantwhich is likely postsurgical. There are no areas of suspicious enhancementor lymphadenopathy. LEFT BREAST: There is mild benign background breast parenchymalenhancement. There is a left breast implant in place. There are no areasof suspicious enhancement or lymphadenopathy. IMPRESSION: RIGHT BREAST: No evidence of malignancy. BI-RADS: 2. Negative. LEFT BREAST: No evidence of malignancy. BI-RADS: 2. Negative. The [place] [employer] recommends annual screening breast MRI inaddition to mammography for women with a lifetime risk of breast cancergreater than 20%. Patient's are encouraged to discuss their individualrisks of breast cancer with their referring health care Provider. Report Sign Date: 05/29/2023 12:29 PM, Electronically Signed By: Vahe Boyd MD Clara Holbrook APRN [facility] [place] MRI PROCEDURES documented in this encounter Visit Diagnoses Diagnosis Malignant neoplasm of upper-outer quadrant of right breast in female, estrogen receptor positive documented in this encounter Administered Medications Inactive Administered Medications - up to 3 most recent administrations Medication Order MAR Action Action Date Dose Rate Site gadoteridol (Prohance) injection 5,167.05 mg 5,167.05 mg (rounded from 5,139.12 mg = 18.4 mL), Intravenous, Once in imaging, Starting on Sun05/29/23 at 0909, For 1 dose Given 05/29/2023 9:09 AM EDT 5,167.05 mg documented in this encounter Care Teams Decker Operator Relationship Specialty Start Date End Date Ricardo Contreras MD [address] [place] [address] PCP - General Jalil Marie MD [address] [place] [address] Consulting Physician Hematology 04/12/22 Barbie Jorgensen APRN [address] [place] [address] Nurse Practitioner Oncology 06/21/22 Clara Holbrook APRN [address] [place] [address] Nurse Practitioner Oncology 01/24/23 documented as of this encounter
--- OUTSIDE RECORDS SUMMARY | 2024-08-18 13:07 | XMS_ITS | Encounter Summary ---
Author Organization [facility] nter Address [address] [place], [place] [id number] [place] [address] Care Team Providers Care Safety Professional Name Role Phone Ricardo Contreras MD Primary Care Provider + Jalil Marie MD Unavailable [phone] Barbie Jorgensen HEAT AND FROST INSULATOR Unavailable [phone] Clara Holbrook HEAT AND FROST INSULATOR Unavailable [phone] Encounter Details Date Type Department Care Team (Latest Contact Info) Description 08/17/2023 Travel Social History Tobacco Use Types Packs/Day [...] on filedocumented in this encounter Care Teams Safety Professional Relationship Specialty Start Date End Date Ricardo Contreras MD [address] [place] [address] PCP - General Jalil Marie MD [address] [place] [address] Consulting Physician Hematology 04/12/22 Barbie Jorgensen APRN [address] [place] [address] Nurse Practitioner Oncology 06/21/22 Clara Holbrook APRN [address] [place] [address] Nurse Practitioner Oncology 01/24/23 documented as of this encounter
--- OUTSIDE RECORDS SUMMARY | 2024-08-18 13:07 | XMS_ITS | Encounter Summary ---
Author Organization [facility] Address [address] [place] [address] Care Team Providers Care Movement Therapist Name Role Phone Ricardo Contreras MD Primary Care Provider + Jalil Marie MD Unavailable Barbie Jorgensen SANITARY [employer] MACHINE TENDER Unavailable [phone] Clara Holbrook SANITARY [employer] MACHINE TENDER Unavailable Encounter Details Date Type Department Care Team (Late st Contact Info) Description 07/16/2023 8:30 AM EST Office Visit [facility] [address] [place] [address] Clara Holbrook APRN [address] [place] [address] Malignant neoplasm of upper-outer quadrant of right breast in female, estrogen receptor positive (Primary Dx); Parotid mass; Anemia, unspecified type Social History Tobacco Use Types Packs/Day Years [...] Sign Reading Time Taken Comments Blood Pressure 167/93 07/16/2023 8:18 AM EST Pulse - - Temperature - - Respiratory Rate - - Oxygen Saturation - - Inhaled Oxygen Concentration - - Weight - - Height - - Body Mass Index - - documented in this encounter Progress Notes * Clara Holbrook, SANITARY [employer] MACHINE TENDER - 07/16/2023 8:30 AM EST Survivorship Visit Note Subjective Patient ID: Catie Martinez is a 52 y.o. female who presents for No chief complaint on file.. HPI : HPI 12/28/2015: DIAGNOSIS; Endometrium, Biopsy: Mid-secretory phase endometrium. Negative for hyperplasia or malignancy. SEE COMMENT (Comment; The accompanying cervical cytology is negative.) 01/07/2016: DIAGNOSIS; Endometrial tissue, D and C: Proliferative phase endometrium. Negative for hyperplasia and malignancy. 04/08/20: MA SCREENING BILAT, IMPRESSION : No mammographic evidence of malignancy. BIRADS: BIRADS 0.Further imaging evaluation required. 05/14/20: US BREAST RT, IMPRESSION : 19 mm right breast lesion 11:00 as above. BI- RADS: 4. Suspicious. 05/14/20: MA MAMMO DIAG RT W/JORGE A, IMPRESSION : 19 mm right breast lesion 11:00 as above. BI-RADS: 4.Suspicious. 05/16/20: CT PELVIS W/O CONT. IMPRESSION : No acute findings. 05/16/20: CT SPINE LUMBAR W/O CONT, IMPRESSION : No acute findings. 07/08/20: DIAGNOSIS; Right breast mass, biopsy: Invasive moderately differentiated ductal carcinoma. Greatest dimension 1.0 cm. Negative for lymphovascular invasion. [place] Grade II/III (2 +2+1).Negative for intraductal carcinoma. Negative for necrosis 08/04/20: FROZEN SECTION DIAGNOSIS, 1. [place] Lymph Node #1, Excision (1FS1): -Negative for macrometastasis. 2. [place] Lymph Node #2, Excision (2FS1): - Negative for macrometastasis. DIAGNOSIS, 1. [place] Lymph Node #1, Excision (1FS1): -One lymph node is negative for malignancy. 2. [place] Lymph Node #2, Excision (2FS1): -One lymph node is negative for malignancy. 3. [place] Lymph Node #3, Excision: -One lymph node is negative for malignancy. 4. Right Breast, Mastectomy: -Invasive ductal carcinoma, grade 2, measuring 15 mm; margins negative. See comment. -Prior procedure site changes. -Microcalcifications present in invasive carcinoma and non-neoplastic tissue. -Uninvolved breast with sclerosing adenosis. 09/13/2020; Oncotype DX Breast Recurrence Score Report; Recurrence Score: 15, Distant Recurrence Riskat 9 Years: 4%, Group Average Absolute CT Benefit - <1%, 10.0 ER Positive, 9.0 VT Positive, 8.9 HER2 Negative 09/16/20: US BREAST LIMITED RIGHT; IMPRESSION : Large complex fluid collections with internal septations and debris are seen involving the right breast status post mastectomy. Differential considerations favor postoperative seroma or evolving/old hematoma. Infection cannot be excluded. 09/16/20: US VENOUS UE DUP RIGHT EXT, IMPRESSION : Negative study. 09/21/20: CT CHEST W+W/O CONT, IMPRESSION : 1. Status post right mastectomy. The previously noted chest wall fluid collection is much smaller. There remaining fluid measures water density. 2. There isno acute mediastinal/great vessel pathology. 3. The lungs are clear. No pleural effusion or pneumothorax. 11/01/20: Dexa: normal 12/08/2020: CT chest: small 3 mm pulmonary nodule === 06/14/22 === CT CHEST W IV CONTRAST - Impression - 1. Minimal scattered areas of scarring/atelectasis. No suspicious mass. Scattered small nodules measuring up to 2 to 3 mm, unchanged. 2. Status post right mastectomy with reconstruction and tissue first breaker feeder in place. 3. Other chronic findings as noted. 11/21/2021: Mammogram: benign 12/29/2021: CT neck: redemonstration of left parotid lesion in the region of marker which is decreased in size compared to prior now measuring 1.9 x 0.8 cm. Right level 2A lymph node is borderline enlarged however decreased in size compared to prior. 06/14/2022: CT chest: small pulmonary nodules 08/17/2022: CT lumbar spine: degenerative changes 04/25/2023: Mammogram: benign 05/11/2023: CT neck, C/A/P: unchanged parotid mass, cervical lymphadenopathy, indeterminate intermediate to increased density lesion involving the right adrenal glad or kidney 05/29/2023: MRI breast: birads 2 benign, fat necrosis 06/04/2023: Bone scan: negative 06/14/2023: MRI L spine: multilevel degenerative disc disease 07/04/2023: MR abdomen: negative Interval History: Has saw Dr. Forrest since last visit her, who reassured her that the palpable abnormalities in breast is fat necrosis. Scheduled for colonoscopy in Sep Review of Systems Constitutional: Positive for fatigue. Musculoskeletal: Positive for back pain. Neurological: Positive for headaches. Psychiatric/Behavioral: Positive for depression and sleep disturbance. The patient is nervous/anxious. Past Medical and Surgical History Past Medical History: Diagnosis Date Anxiety Breast [...] ruptured disc NOSE SURGERY SHOULDER SURGERY Bilateral Family History Problem Relation Name Age of Onset Breast cancer Maternal Grandmother reports that she quit smoking about 4 years ago. Her smoking use included cigarettes. She has a 30.00 pack-year smoking history. She has been exposed to tobacco smoke. She has never used smokeless tobacco. She reports that she does not drink alcohol and does not use drugs. Tobacco Use: Medium Risk (07/16/2023) Patient History Smoking Tobacco Use: Former Smokeless Tobacco Use: Never Passive Exposure: Current Objective Visit Vitals BP (!) 167/93 OB Status Postmenopausal Smoking Status Former Physical Exam Constitutional: Appearance: Normal appearance. HENT: Head: Normocephalic. Eyes: Conjunctiva/sclera: Conjunctivae normal. Neck: Trachea: Trachea normal. Cardiovascular: Rate and Rhythm: Normal rate. Heart sounds: Normal heart sounds. Pulmonary: Effort: Pulmonary effort is normal. Breath sounds: Normal breath sounds. Abdominal: General: Bowel sounds are normal. Skin: General: Skin is warm and dry. Neurological: Mental Status: She is alert. Psychiatric: Speech: Speech normal. Labs Reviewed - No data to display BSA: There is no height or weight on file to calculate BSA. Assessment/Plan Cancer Staging No matching staging information was found for the patient. 1. Malignant neoplasm of upper-outer quadrant of right breast in female, estrogen receptor positive Assessment & Plan: Perimenopausal white female who was found to have right breast cancer status post right mastectomy by Dr. Duarte on July 08, 2020 with pathology showing 15 mm IDC, negative margins with 0.5 cm the closest margin, grade 2, ER positive at 100%, VT +100%, and HER-2 new negative on immunohistochemistry. [...] with estradiol of 29.7 consistent with menopausal status.Last menstrual cycle was in January 2020. She [...] Refill E-scribed -Follow up in 3 months Orders: - Clinic Appointment Request CLARA HOLBROOK; Future - anastrozole (Arimidex) 1 MG chemo tablet; Take 1 tablet (1 mg total) by mouth in the morning. 2. Parotid mass Assessment & Plan: Had parotid bx done 01/2019, was consistent with warthins tumor, former pt of Dr. Burrell Was supposed to follow up in 6 months, but has been lost to follow up. Most recent CT scan done last week shows stable parotid mass, but does cervical adenopathy and has a palpable node behind left auricle. Will refer back to ENT for their opinion 3. Anemia, unspecified type Assessment & Plan: Currently on oral ferrous sulfate Will check iron levels at next visit No active treatment plan for patient. documented in this encounter Miscellaneous Notes * Assessment & Plan Note - Clara Holbrook APRN - 07/16/2023 10:27 AM EST Associated Problem(s): Anemia Currently on oral ferrous sulfate Will check iron levels at next visit * Assessment & Plan Note - Jeannette Trejo - 07/16/2023 8:24 AM ESTAssociated Problem(s): Parotid mass Had parotid bx done 01/2019, was consistent with warthins tumor, former pt of Dr. Burrell Was supposed to follow up in 6 months, but has been lost to follow up. Most recent CT scan done last week shows stable parotid mass, but does cervical adenopathy and has a palpable node behind left auricle. Will refer back to ENT for their opinion * Assessment & Plan Note - Jeannette Trejo - 07/16/2023 8:24 AM ESTAssociated Problem(s): Malignant neoplasm of upper-outer quadrant of right breast in female, estrogen receptor positive Perimenopausal white female who was found to have right breast cancer status post right mastectomy by Dr. Duarte on July 08, 2020 with pathology showing 15 mm IDC, negative margins with 0.5 cm the closest margin, grade 2, ER positive at 100%, VT +100%, and HER-2 new negative on immunohistochemistry. [...] with estradiol of 29.7 consistent with menopausal status.Last menstrual cycle was in January 2020. She [...] Refill E-scribed -Follow up in 3 months * Patient Education - Tinggrisel Phillip - 07/16/2023 8:21 AM EST Patient Education Table of Contents Breast Cancer, Female To view videos and all your education online visit, [email or web address] or scan this QR code with your smartphone. Access to this content will in one year. Breast Cancer, Female Breast cancer is a malignant growth of tissue (tumor) in the breast. Unlike noncancerous (benign) tumors, malignant tumors are cancerous and can spread to other parts of the body. The two most commontypes of breast cancer start in the milk ducts (ductal carcinoma) or in the lobules where milk is made in the breast (lobular carcinoma). Breast cancer is one of the most common types of cancer in women. What are the causes? The exact cause of female breast cancer is unknown. What increases the risk? The following factors may make you more likely to develop this condition: Being older than 55 years of age. Having a family history of breast cancer. Starting menopause after age 55. Starting your menstrual periods before age 12. Having never been or having your first child after age 30. Having never breastfed. A personal history of: Breast cancer. Dense breast tissue. Radiation exposure. Having the BRCA1 and BRCA2 genes. Having certain types of benign breast conditions. Exposure to the drug RODRIGUEZ, which was given to women from the 1940s to the 1970s. Other risks include: Using control pills. Using hormone therapy after menopause. Drinking more than one alcoholic drink a day. Obesity. What are the signs or symptoms? Symptoms of this condition include: A painless lump or thickening in your breast. Changes in the size or shape of your breast. Breast skin changes, such as puckering or dimpling. Nipple abnormalities, such as scaling, crustiness, redness, or pulling in (retraction). Nipple discharge that is bloody or clear. How is this diagnosed? This condition may be diagnosed by: Taking your medical history and doing a physical exam. During the exam, your health care provider will feel the tissue around your breast and under your arms. Taking a sample of nipple discharge. The sample will be examined under a microscope. Performing imaging tests, such as breast X-rays (mammogram), ultrasound, or MRI. Taking a tissue sample (biopsy) from the breast. The sample will be examined under a microscope to look for cancer cells. Taking a sample from the lymph nodes near the affected breast (sentinel node biopsy). Your cancer will be staged to determine its severity and extent. Staging is a careful attempt to find out the size of the tumor, whether the cancer has spread, and if so, to what parts of the body. Staging also includes testing your tumor for certain receptors, such as estrogen, progesterone, and human epidermal growth factor receptor 2 (HER2). This will help your cancer care team decide on a treatment that will work best for you. You may need to have more tests to determine the stage of your cancer. Stages include the following: Stage 0?The tumor has not spread to other breast tissue. Stage 1 (I)?The cancer is only found in the breast or may be in the lymph nodes. The tumor may be up to ? inch (2 cm) wide. Stage 2 (II)?The cancer has spread to nearby lymph nodes. The tumor may be up to 2 inches (5 cm) wide. Stage 3 (III)?The cancer has spread to more distant lymph nodes. The tumor may be larger than 2 inches (5 cm) wide. Stage 4 (IV)?The cancer has spread to other parts of the body, such as the bones, brain, liver, or lungs. How is this treated? Treatment for this condition depends on the type and stage of the breast cancer. It may be treated with: Surgery. This may involve breast-conserving surgery (lumpectomy or partial mastectomy) in which only the part of the breast containing the cancer is removed. Some normal tissue surrounding this area may also be removed. In some cases, surgery may be done to remove the entire breast (mastectomy) andnipple. Lymph nodes may also be removed. Radiation therapy, which uses high-energy rays to kill cancer cells. Chemotherapy, which is the use of medicines to kill cancer cells. Hormone therapy, which involves taking medicine to adjust the hormone levels in your body. You may take medicine to decrease your estrogen levels. This can help stop cancer cells from growing. Targeted therapy, in which medicines are used to block the growth and spread of cancer cells. Thesemedicines target a specific part of the cancer cell and usually cause fewer side effects than chemotherapy. Targeted therapy may be used alone or in combination with chemotherapy. Immunotherapy, which is the use of medicines to boost the immune system to recognize and destroy cancer cells more effectively. A combination of surgery, radiation, chemotherapy, or hormone therapy may be needed to treat breastcancer. Follow these instructions at home: Take jezk-lie-otxkuaw and prescription medicines only as told by your health care provider. Eat a healthy diet. A healthy diet includes lots of fruits and vegetables, low- fat dairy products, lean meats, and fiber. Make sure half your plate is filled with fruits or vegetables. Choose high-fiber foods such as whole-grain breads and cereals. Consider joining a support group. This may help you cope with the stress of having breast cancer. Talk to your health care team about exercise and physical activity. The right exercise program can: Help prevent or reduce symptoms such as fatigue or depression. Improve overall health and survival rates. Keep all follow-up visits. This is important. Where to find more information [place] [employer]: www.cancer.org National Cancer [place]: www.cancer.gov Contact a health care provider if: You have a sudden increase in pain. You have any symptoms or changes that concern you. You lose weight without trying. You notice a new lump in either breast or under your arm. You develop swelling in either arm or hand. You have a fever. You notice new fatigue or weakness. Get help right away if: You have chest pain or trouble breathing. These symptoms may be an emergency. Get help right away. Call 911. Do not wait to see if the symptoms will go away. Do not drive yourself to the hospital. Summary Breast cancer is a malignant growth of tissue (tumor) in the breast. Your cancer will be staged to determine its severity and extent. Treatment for this condition depends on the type and stage of the breast cancer. This information is not intended to replace advice given to you by your health care provider. Make sure you discuss any questions you have with your health care provider. Document Released: 12/05/2006 Document Revised: 07/17/2022 Document Reviewed: 07/17/2022 [employer] Patient Education ? 2022 [employer] documented in this encounter Plan of Treatment Not on file documented as of this encounter Visit Diagnoses Diagnosis Malignant neoplasm of upper-outer quadrant of right breast in female, estrogen receptor positive- Primary Parotid mass Swelling, mass, or lump in head and neck Anemia, unspecified type documented in this encounter Care Teams Movement Therapist Relationship Specialty Start Date End Date Ricardo Contreras MD [address] [place] [address] PCP - General Jalil Marie MD [address] [place] [phone] Consulting Physician Hematology 04/12/22 Barbie Jorgensen APRN [address] [place] [phone] Nurse Practitioner Oncology 06/21/22 Clara Holbrook APRN [address] [place] [phone] Nurse Practitioner Oncology 01/24/23 documented as of this encounter
--- OUTSIDE RECORDS SUMMARY | 2024-08-18 13:07 | XMS_ITS | Encounter Summary ---
Author Organization [facility] nter Address [address] [place], [place] [id number] [place] [address] Care Team Providers Care [employer] Humanities Teacher Name Role Phone Ricardo Contreras MD Primary Care Provider + Jalil Marie MD Unavailable [phone] Barbie Jorgensen GOLF CADDIE Unavailable [phone] Clara Holbrook GOLF CADDIE Unavailable [phone] Reason for Referral * Imaging (Routine) - Closed Specialty Diagnoses / Procedures Referred By Contac t Referred To Contact Radiology Diagnoses 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, estrogen receptor positive Procedures DEXA bone density axial skeleton Clara Holbrook APRN [address] [place] [address] Referral ID Status Reason Start Date Expiration Date Visits Re quested Visits Authorized [id number] Closed 01/24/2023 01/24/2024 1 1 Reason for Visit * Imaging (Routine) - Closed Specialty Diagnoses / Procedures Referred By Contcurly moreno Referred To Contact Radiology Diagnoses 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, estrogen receptor positive Procedures DEXA bone density axial skeleton Clara Holbrook APRN [address] [place] [address] Referral ID Status Reason Start Date Expiration Date Visits Re quested Visits Authorized [id number] Closed 01/24/2023 01/24/2024 1 1 Encounter Details Date Type Department Care Team (Latest Contact Info) Description 08/24/2023 7:54 AM EST - 08/24/2023 11:59 PM EST Hospital Encounter [facility] BLDG D [address], [address] [place] [id number] Malignant neoplasm of nipple of right breast [...] mcg) by mouth in the morning. 07/12/2023 Diclofenac Sodium 1 % gel 08/19/2023 ergocalciferol (Vitamin D2) 1.25 MG (33959 UT) capsule 1 capsule (50,000 Units) 1 [...] of procedure 01/18/2022 Lancets (OneTouch Delica Plus [id number]) mis in the morning, at noon, and [...] the morning. 30 tablet 2 07/16/2023 07/15/2024 cephalexin (Keflex) 250 MG capsule Take 2 capsules (500 mg) by mouth in the morning and at bedtime for 10 days. 40 capsule 08/24/2023 09/03/2023 calcium carbonate-vitamin D (Calcium 600+D) 600-5 MG-MCG tabletIndications:Deborah gnant neoplasm of upper-outer quadrant of right breast in female, estrogen receptor positive Take 2 tablets by mouth in the morning and at bedtime. 60 tablet 5 04/10/2023 10/01/2023 documented as of this encounter Plan of Treatment Not on file documented as of this encounter Procedures Procedure Name Priority Date/Time Associated Diagnosis Comments DEXA BONE DENSITY AXIAL SKELETON Routine 08/24/2023 8:40 AM EST 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, estrogen receptor positive documented in this encounter Results * DEXA bone density axial skeleton (08/24/2023 8:40 AM EST) Anatomical Region Laterality Modality Body Digital Radiogra phy 08/24/2023 7:55 AM EST Narrative 08/24/2023 9:07 AM EST PROCEDURE: DXA BONE DENSITY AXIAL: 08/24/2023 CLINICAL INFORMATION: osteoporosis screening COMPARISON: 11/01/2020 AP SPINE (L1-L4): BMD ?? 1.069 T-SCORE ?? 0.2 Z-SCORE ?? 1.0 CLASSIFICATION: ??Normal HIP: TOTAL BMD ??0.900 T-SCORE ?? -0.3 Z-SCORE ?? 0.2 NECK BMD ??0.863 T-SCORE ?? 0.1 Z-SCORE ?? 0.9 TROCH BMD ??0.656 T-SCORE ?? -0.5 Z-SCORE ?? 0.0 CLASSIFICATION: ??Normal Change from prior scan of L1-L4 ??% ??-1.7 Femur ??% 2.1 GENERAL INFORMATION: From the National Osteoporosis Foundation Defining Osteoporosis by BMD The World Health Organization has established the following definitions based on bone mass measurement at the spine, hip, or wrist in white postmenopausal women: NORMAL: ??BMD is within 1 SD of a young normal adult (T-score at -1.0 and above). OSTEOPENIA: ??Low bone mass. ??BMD is between 1 and 2.5 SD below that of a young normal adult (T-score between -1 and -2.5) OSTEOPOROSIS: ??BMD is 2.5 SD or more below that of a young normal adult (T- score at or below -2.5) Women in this group who have already experienced one or more fractures are deemed to have severe or established osteoporosis. Although these definitions are necessary to establish the prevalence of osteoporosis, they should not be sued as the sole determinant of treatment decisions. NOTE: 1. ??The densitometry reports also provide Z scores which represent the standard deviations (SD) from age and sex-matched control subjects. 2. ??The Z score can provide useful diagnostic information because a Z score of -2 or greater below the age and sex-matched control may suggest a secondary cause of osteoporosis. 3. ??For each 10% decrease in BMD, the fracture risk approximately doubles. Electronically signed by: ??Vahe Godoy MD ??08/24/2023 09:07 AM EST Procedure Note Vahe Godoy MD - 08/24/2023 PROCEDURE: DXA BONE DENSITY AXIAL: 08/24/2023 CLINICAL INFORMATION: osteoporosis screening COMPARISON: 11/01/2020 AP SPINE (L1-L4): BMD 1.069 T-SCORE 0.2 Z-SCORE 1.0 CLASSIFICATION: Normal HIP: TOTAL BMD 0.900 T-SCORE -0.3 Z-SCORE 0.2 NECK BMD 0.863 T-SCORE 0.1 Z-SCORE 0.9 TROCH BMD 0.656 T-SCORE -0.5 Z-SCORE 0.0 CLASSIFICATION: Normal Change from prior scan of L1-L4 % -1.7 Femur % 2.1 GENERAL INFORMATION: From the National Osteoporosis Foundation Defining Osteoporosis by BMD The World Health Organization has established the following definitionsbased on bone mass measurement at the spine, hip, or wrist in whitepostmenopausal women: NORMAL: BMD is within 1 SD of a young normal adult (T-score at -1.0 andabove). OSTEOPENIA: Low bone mass. BMD is between 1 and 2.5 SD below that of a young normal adult (T-score between -1 and -2.5) OSTEOPOROSIS: BMD is 2.5 SD or more below that of a young normal adult(T-score at or below -2.5) Women in this group who have alreadyexperienced one or more fractures are deemed to have severe or established osteoporosis. Although these definitions are necessary to establish the prevalence ofosteoporosis, they should not be sued as the sole determinant of treatmentdecisions. NOTE: 1. The densitometry reports also provide Z scores which represent thestandard deviations (SD) from age and sex-matched control subjects. 2. The Z score can provide useful diagnostic information because a Zscore of -2 or greater below the age and sex-matched control may suggest asecondary cause of osteoporosis. 3. For each 10% decrease in BMD, the fracture risk approximatelydoubles. Electronically signed by: Vahe Godoy MD 08/24/2023 09:07 AM ESTWorkstation: [id number] Clara Holbrook APRN [facility] DXA PROCEDURES documented in this encounter Visit Diagnoses Diagnosis 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, estrogen receptor positive documented in this encounter Care Teams [employer] Human[employer] Teacher Relationship Specialty Start Date End Date Ricardo Contreras MD [address] [place] [address] PCP - General Jalil Marie MD [address] [place] [phone] Consulting Physician Hematology 04/12/22 Barbie Jorgensen APRN [address] [place] [phone] Nurse Practitioner Oncology 06/21/22 Clara Holbrook APRN [address] [place] [phone] Nurse Practitioner Oncology 01/24/23 documented as of this encounter
--- OUTSIDE RECORDS SUMMARY | 2024-08-18 13:07 | XMS_ITS | Encounter Summary ---
Author Organization [facility] nter Address [address] [place] [address] Care Team Providers Care Antique Furniture Reproducer Name Role Phone Ricardo Contreras MD Primary Care Provider + Jalil Marie MD Unavailable [phone] Barbie Jorgensen NOUGAT CUTTER MACHINE Unavailable [phone] Clara Holbrook NOUGAT CUTTER MACHINE Unavailable Reason for Visit * Reason Comments Med Refill Encounter Details Date Type Department Care Team (Late st Contact Info) Description 10/01/2023 Refill [facility] [address] [place] [address] Clara Holbrook APRN [address] [place] [address] Malignant neoplasm of upper-outer quadrant of right breast in female, estrogen receptor positive Social History Tobacco Use Types Packs/Day Years [...] positive documented in this encounter Care Teams Antique Furniture Reproducer Relationship Specialty Start Date End Date Ricardo Contreras MD [address] [place] [address] PCP - General Jalil Marie MD [address] [place] [place] [address] Consulting Physician Hematology 04/12/22 Barbie Jorgensen APRN [address] [place] [address] Nurse Practitioner Oncology 06/21/22 Clara Holbrook APRN [address] [place] [address] Nurse Practitioner Oncology 01/24/23 documented as of this encounter
--- OUTSIDE RECORDS SUMMARY | 2024-08-18 13:07 | XMS_ITS | Encounter Summary ---
Author Organization [facility] nter Address [address] [place] [address] Care Team Providers Care Survey Superintendent Name Role Phone Ricardo Contreras MD Primary Care Provider + Jalil Marie MD Unavailable [phone] Barbie Jorgensen STRINGS TEACHER Unavailable [phone] Clara Holbrook STRINGS TEACHER Unavailable [phone] Reason for Visit * Reason Comments Med Refill Encounter Details Date Type Department Care Team (Late st Contact Info) Description 08/04/2023 [address] [facility] [address] [place] [address] Gregory Forrest MD [address] [place] [address] Social History Tobacco Use Types [...] on filedocumented in this encounter Care Teams Survey Superintendent Relationship Specialty Start Date End Date Ricardo Contreras MD [address] [place] [address] PCP - General Jalil Marie MD [address] [place] [address] Consulting Physician Hematology 04/12/22 Barbie Jorgensen APRN [address] [place] [address] Nurse Practitioner Oncology 06/21/22 Clara Holbrook APRN [address] [place] [address] Nurse Practitioner Oncology 01/24/23 documented as of this encounter
--- OUTSIDE RECORDS SUMMARY | 2024-08-18 13:08 | XMS_ITS | Encounter Summary ---
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, estrogen receptor positive Procedures BI Diagnostic mammogram left Clara Holbrook APRN [address] [place] [address] Referral ID Status Reason Start Date Expiration Date Visits Re quested Visits Authorized [id number] Closed 01/31/2023 01/31/2024 1 1 Reason for Visit * Imaging (Routine) - Closed Specialty Diagnoses / Procedures Referred By Frantz moreno Referred To Contact Radiology Diagnoses 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, estrogen receptor positive Procedures BI Diagnostic mammogram left Clara Holbrook APRN [address] [place] [address] Referral ID Status Reason Start Date Expiration Date Visits Re quested Visits Authorized [id number] Closed 01/31/2023 01/31/2024 1 1 Encounter Details Date Type Department Care Team (Latest Contact Info) Description 04/25/2023 7:54 AM EDT - 04/25/2023 11:59 PM EDT Hospital Encounter [facility] [address] [place] [phone] Malignant neoplasm of nipple of right breast [...] Orientation Straight 2021 11 :11 AM EST COVID-19 Exposure Response Date Recorded In the last 10 days, have yo u been in contact with someone who was confirmed or suspected to have Coronavirus/COVID-19? No / Unsure 04/10/2023 11:19 AM EDT documented as of this encounter Medications at [...] surgery 03/16/2022 ergocalciferol (Vitamin D2) 1.25 MG (16443 UT) capsule 1 capsule (50,000 Units) 1 [...] of procedure 01/18/2022 Lancets (OneTouch Delica Plus [id number]) [facility] [place], at [...] Take 1 tablet (100 mg) by mouth. topiramate 50 MG tablet Take 50 mg by mouth in the morning and at bedtime. Take morning of procedure anastrozole (Arimidex) 1 MG chemo tabletIndications:Deborah gnant neoplasm of upper-outer quadrant of right breast in female, estrogen receptor positive Take 1 tablet (1 mg total) by mouth in the morning. 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 BIRADS: BI-RADS Category 2: Benign Finding RECOMMENDATION: Annual mammogram. Negative mammography should not preclude biopsy of any clinically suspicious palpable lesions, which should be managed on clinical grounds, since 10% to 15% of malignancies are not mammographically visible and the rate is higher in patients with mammographically dense breast tissues. The results of your patient's mammogram will be forwarded by mail. It is the responsibility of the patient to provide the date and/or location of any previous mammograms to any new physician and/or supplier. Report Sign Date: 04/25/2023 4:11 PM, Electronically Signed By: Sang Anderson 04/25/2023 4:11 PM EDT PROCEDURE: BI MAMMOGRAM DIAGNOSTIC LEFT: 04/25/2023 CLINICAL INFORMATION: breast cancer COMPARISON: 11/21/2021 BREAST DENSITY: The breasts are heterogeneously dense. This may lower the sensitivity of mammography. ??(c) FINDINGS: Implant present. Benign-appearing calcifications. No dominant mass lesion, suspicious unremarkable desiccation, or area of architectural distortion. 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
--- OUTSIDE RECORDS SUMMARY | 2024-08-18 13:08 | XMS_ITS | Encounter Summary ---
Author Organization [facility] nter Address [address] [place] [address] Care Team Providers Care Beam Warper Name Role Phone Ricardo Contreras MD Primary Care Provider + Jalil Marie MD Unavailable Barbie Jorgensen NIGHT AUDITOR Unavailable [phone] Clara Holbrook NIGHT AUDITOR Unavailable [phone] Encounter Details Date Type Department Care Team (Latest Contact Info) Description 01/31/2023 10:00 AM EDT Office Visit [facility] [address] [place] [address] Gregory Forrest MD [address] [place] [address] H/O breast reconstruction (Primary Dx) Social [...] Recorded In the last 10 days, have rome garibay been in contact with someone who was confirmed or suspected to have Coronavirus/COVID-19? No / Unsure 01/31/2023 8:02 AM EDT documented as of this encounter Last Filed Vital Signs Vital Sign Reading Time Taken Comments Blood Pressure - - Pulse - - Temperature - - Respiratory Rate - - Oxygen Saturation - - Inhaled Oxygen Concentration - - Weight 95.7 kg (211 lb) 01/31/2023 8:11 AM EDT Height 162.6 cm (5' 4 ) 01/31/2023 8:11 AM EDT Body Mass Index 36.22 01/31/2023 8:11 AM EDT documented in this encounter Progress Notes * Gregory Forrest MD - 01/31/2023 10:00 AM EDT Subjective : Patient ID: Catie Martinez is a 52 y.o. female. History of Present Illness: Pt had recent fall. Rt chest pain. Objective : Physical Exam Constitutional She appears well-developed and well-nourished. Eyes System normal. Pulmonary/Chest Effort normal. Skin Skin is warm. Psychiatric She has a normal mood and affect. Her behavior is normal. Left reduced breast healed well. Rt implant soft mobile. Mild tenderness over rt pec muscle. Assessment/Plan : 1. H/O breast reconstruction Pt can have mammograms and any imaging study including MRI. F/up in 1 y. Ibuprofen OTC for rt pec contusion. documented in this encounter Plan of Treatment Not on file documented as of this encounter Visit Diagnoses Diagnosis H/O breast reconstruction- Primary documented in this encounter Care Teams Beam Warper Relationship Specialty Start Date End Date Ricardo Contreras MD [address] [place] [address] PCP - General Jalil Marie MD [address] [place] [phone] Consulting Physician Hematology 04/12/22 Barbie Jorgensen APRN [address] [place] [address] Nurse Practitioner Oncology 06/21/22 Clara Holbrook APRN [address] [place] [address] Nurse Practitioner Oncology 01/24/23 documented as of this encounter
--- OUTSIDE RECORDS SUMMARY | 2024-08-18 13:08 | XMS_ITS | Encounter Summary ---
Author Organization [facility] nter Address [address] [place], [place] [id number] [place] [address] Care Team Providers Care Drywall Hanger Framer Name Role Phone Ricardo Contreras MD Primary Care Provider + Jalil Marie MD Unavailable [phone] Barbie Jorgensen GAS LEAK TESTER Unavailable [phone] Clara Holbrook GAS LEAK TESTER Unavailable [phone] Encounter Details Date Type Department Care Team (Latest Contact Info) Description 05/15/2023 Travel Social History Tobacco Use Types Packs/Day [...] on filedocumented in this encounter Care Teams Drywall Hanger Framer Relationship Specialty Start Date End Date Ricardo Contreras MD [address] [place] [address] PCP - General Jalil Marie MD [address] [place] [address] Consulting Physician Hematology 04/12/22 Barbie Jorgensen APRN [address] [place] [address] Nurse Practitioner Oncology 06/21/22 Clara Holbrook APRN [address] [place] [address] Nurse Practitioner Oncology 01/24/23 documented as of this encounter
--- OUTSIDE RECORDS SUMMARY | 2024-08-18 13:08 | XMS_ITS | Encounter Summary ---
Author Organization [facility] nter Address [address] [place] [address] Care Team Providers Care Meat Pumper Name Role Phone Ricardo Contreras MD Primary Care Provider + Jalil Marie MD Unavailable [phone] Barbie Jorgensen APRN Unavailable [phone] Clara Holbrook APRN Unavailable [phone] Reason for Referral * Consultation (Routine) - Closed Specialty Diagnoses / Procedures Referred By Frantz t Referred To Contact Otolaryngology Diagnoses Parotid mass Procedures [place] OFFICE/OUTPATIENT [facility] 60-74 MINUTES Clara Holbrook APRN [address] [facility] [place] [address] [facility] Otolaryngology [address] [place] [address] Referral ID Status Reason Start Date Expiration Date V isits Requested Visits Authorized [id number] Closed Specialty Services Required 05/15/2023 05/14/2024 1 1 * Imaging (Routine) - Closed Specialty Diagnoses / Procedures Referred By Contcurly t Referred To Contact Radiology Diagnoses Malignant neoplasm of upper-outer quadrant of right breast in female, estrogen receptor positive Procedures MR abdomen w and wo contrast Clara Holbrook APRN [address] [facility] [address] [facility] [place] [address] [facility] [address] Phone: [phone] Fax: [phone] Referral ID Status Reason Start Date Expiration Date V isits Requested Visits Authorized [id number] Closed Specialty Services Required 05/22/2023 05/21/2024 1 1 Reason for Visit * Reason Comments Malignant neoplasm of upper-outer quadra nt of right breast Encounter Details Date Type Department Care Team (Late st Contact Info) Description 05/15/2023 10:30 AM EDT Office Visit [facility] ONCOLOGY PRACTICE [address] [place] [address] Clara Holbrook APRN [address] [facility] [place] [address] Malignant neoplasm of upper-outer quadrant of right breast in female, estrogen receptor positive (Primary Dx); Parotid mass Social History Tobacco Use Types Packs/Day Years [...] Sign Reading Time Taken Comments Blood Pressure 146/80 05/15/2023 10:06 AM EDT Pulse 72 05/15/2023 10:06 AM EDT Temperature 36.8 ??C (98.2 ??F) 05/15/2023 10:06 AM E DT Respiratory Rate 16 05/15/2023 10:06 AM EDT Oxygen Saturation 99% 05/15/2023 10:06 AM EDT Inhaled Oxygen Concentration - - Weight 86.4 kg (190 lb 8 oz) 05/15/2023 10:06 AM EDT Height - - Body Mass Index 32.7 01/31/2023 8:11 AM EDT documented in this encounter Progress Notes * Clara Holbrook, SOLDER MAKING SUPERVISOR - 05/15/2023 10:30 AM EDT Patient ID: Catie Martinez is a 52 y.o. female. Referring Physician: Ricardo Contreras MD [id number] [id number] Primary Care Provider: Ricardo Contreras MD Subjective HPI 12/28/2015: DIAGNOSIS; Endometrium, Biopsy: Mid-secretory phase endometrium. Negative for hyperplasia or malignancy. SEE COMMENT (Comment; The accompanying cervical cytology is negative.) ?? 01/07/2016: DIAGNOSIS; Endometrial tissue, D and C: Proliferative phase endometrium. Negative for hyperplasia and malignancy. ?? 04/08/20: MA SCREENING BILAT, IMPRESSION : No mammographic evidence of malignancy. ??BIRADS: BIRADS 0. Further imaging evaluation required. ?? 05/14/20: US BREAST RT, ??IMPRESSION : 19 mm right breast lesion 11:00 as above. BI-RADS: 4. ??Suspicious. ?? 05/14/20: MA MAMMO DIAG RT W/JORGE A, IMPRESSION : 19 mm right breast lesion 11:00 as above. BI-RADS: 4.Suspicious. ?? 05/16/20: CT PELVIS W/O CONT. IMPRESSION : No acute findings. ?? 05/16/20: CT SPINE LUMBAR W/O CONT, ??IMPRESSION : No acute findings. ?? 07/08/20: DIAGNOSIS; Right breast mass, biopsy: ??Invasive moderately differentiated ductal carcinoma. Greatest dimension 1.0 cm. Negative for lymphovascular invasion. Marcell Grade II/III (2 +2+1). Negative for intraductal carcinoma. Negative for necrosis ?? 08/04/20: FROZEN SECTION DIAGNOSIS, 1. ??Oakley Lymph Node #1, Excision (1FS1): -Negative for macrometastasis. 2. ??Oakley Lymph Node #2, Excision (2FS1): -Negative for macrometastasis. DIAGNOSIS, 1. ??Oakley Lymph Node #1, Excision (1FS1): -One lymph node is negative for malignancy. 2. ??Oakley Lymph Node #2, Excision (2FS1): -One lymph node is negative for malignancy. 3. ??Oakley Lymph Node #3, Excision: - One lymph node is negative for malignancy. 4. Right Breast, Mastectomy: - Invasive ductal carcinoma, grade 2, measuring 15 mm; margins negative. See comment. -Prior procedure site changes. -Microcalcifications present in invasive carcinoma and non-neoplastic tissue. -Uninvolved breast with sclerosing adenosis. ?? 09/13/2020; Oncotype DX Breast Recurrence Score Report; Recurrence Score: 15, Distant Recurrence Riskat 9 Years: 4%, Group Average Absolute CT Benefit - <1%, 10.0 ER Positive, 9.0 WV Positive, 8.9 HER2 Negative ?? 09/16/20: US BREAST LIMITED RIGHT; IMPRESSION : ??Large complex fluid collections with internal septations and debris are seen involving the right breast status post mastectomy. Differential considerations favor postoperative seroma or evolving/old hematoma. Infection cannot be excluded. ?? 09/16/20: US VENOUS UE DUP RIGHT EXT, IMPRESSION : Negative study. ?? 09/21/20: CT CHEST W+W/O CONT, IMPRESSION : 1. Status post right mastectomy. ??The previously noted chest wall fluid collection is much smaller. ??There remaining fluid measures water density. 2. There is no acute mediastinal/great vessel pathology. ??3. The lungs are clear. ??No pleural effusion or pneumothorax. ?? 11/01/20: Dexa: normal 12/08/2020: CT chest: small 3 mm pulmonary nodule === 06/14/22 === CT CHEST W IV CONTRAST - Impression - 1. Minimal scattered areas of scarring/atelectasis. No suspicious mass. Scattered small nodules measuring up to 2 to 3 mm, unchanged. 2. Status post right mastectomy with reconstruction and tissue placement secretary in place. 3. Other chronic findings as noted. Report Sign Date: 06/14/2022 10:48 AM, Electronically Signed By: Roverto Rucker MD 11/21/2021: Mammogram: benign 12/29/2021: CT neck:??redemonstration of left parotid lesion in the region of marker which is decreased in size compared to prior now measuring 1.9 x 0.8 cm. Right level 2A lymph node is borderline enlarged however decreased in size compared to prior. ??06/14/2022: CT chest: small pulmonary nodules 08/17/2022: CT lumbar spine: degenerative changes ??04/25/2023: Mammogram: benign 05/11/2023: CT neck, C/A/P: unchanged parotid mass, cervical lymphadenopathy, indeterminate intermediate to increased density lesion involving the right adrenal glad or kidney Interval History: Missed appt with Dr. Brewster due to having gastroenteritis. She has now noted palpable nodules over her right mastectomy site. MRI breast has been ordered and currently pending. Review of Systems Constitutional: Negative for chills, fatigue and fever. HENT: Negative for sore throat and trouble swallowing. Respiratory: Positive for cough. Negative for shortness of breath. Cardiovascular: Negative for chest pain and leg swelling. Gastrointestinal: Negative for constipation, diarrhea, nausea and vomiting. Endocrine: Positive for hot flashes. Genitourinary: Positive for dysuria (c/o burning a little). Musculoskeletal: Positive for back pain. Skin: Negative for rash. Neurological: Positive for headaches. Negative for dizziness. Hematological: Does not bruise/bleed easily. Psychiatric/Behavioral: Negative for depression. The patient is nervous/anxious (states on medicine for ). Objective BSA: 1.92 meters squared BP 146/80 Pulse 72 Temp 98.2 ??F (36.8 ??C) (Oral) Resp 16 Wt 190 lb 8 oz (86.4 kg) SpO2 99% BMI 32.70 kg/m?? Physical Exam Constitutional: Appearance: Normal appearance. HENT: Head: Normocephalic. Eyes: Conjunctiva/sclera: Conjunctivae normal. Neck: Trachea: Trachea normal. Cardiovascular: Rate and Rhythm: Normal rate. Heart sounds: Normal heart sounds. Pulmonary: Effort: Pulmonary effort is normal. Breath sounds: Normal breath sounds. Abdominal: General: Bowel sounds are normal. Skin: General: Skin is warm and dry. Neurological: Mental Status: She is alert. Psychiatric: Speech: Speech normal. ECOG Performance Status: 0 - Fully active, able to carry on all pre-disease performance without restriction Pain Scale: 0 Lab Results Component Value Date WBC 10.7 05/15/2023 HGB 15.2 05/15/2023 HCT 45.0 05/15/2023 PLT 222 05/15/2023 LDH 204 (H) 08/19/2020 CREATININE 1.30 (H) 05/15/2023 AST 33 05/15/2023 CEA 4.0 (H) 04/12/2022 Assessment/Plan Cancer Staging No matching staging information [...] margin, grade 2, ER positive at 100%, WV +100%, and HER-2 new negative on immunohistochemistry. [...] Jul 2023 -Follow up in 2 months Orders: - CBC auto differential - Comprehensive metabolic panel - MR abdomen w and wo contrast; Future - anastrozole (Arimidex) 1 MG chemo [...] refer back to ENT for their opinion Orders: - Ambulatory referral/appointment with ENT; Future Other orders - fluconazole (Diflucan) 150 MG tablet; Take 1 tablet (150 mg) by mouth 1 (one) time for 1 dose. Treatment Details Treatment goal [No plan goal] Plan Name DENOSUMAB (PROLIA) Q6MON Status Active Start Date 01/24/2023 End Date Until discontinued Provider Barbie Jorgensen, SARA Chemotherapy denosumab (Prolia) injection 60 mg, 60 mg, Subcutaneous, Once, 1 of 1 cycle Administration: 60 mg (01/24/2023) documented in this encounter Miscellaneous Notes * Assessment & Plan Note - Clara Holbrook APRN - 05/15/2023 5:11 PM EDT Associated Problem(s): Malignant neoplasm of upper-outer quadrant of right breast in female, estrogen receptor positive Perimenopausal white female who was found to have right breast cancer status post right mastectomy by Dr. Duarte on July 08, 2020 with pathology showing 15 mm IDC, negative margins with 0.5 cm the closest margin, grade 2, ER positive at 100%, WV +100%, and HER-2 new negative on immunohistochemistry. [...] Jul 2023 -Follow up in 2 months * Assessment & Plan Note - Clara Holbrook APRN - 05/15/2023 4:58 PM EDT Associated Problem(s): Parotid mass Had parotid bx done [...] refer back to ENT for their opinion documented in this encounter Plan of Treatment Scheduled Referrals Name Type Priority Associated Diagnoses Order Schedule Ambulatory referral/appointment with ENT Outpatient Referral Routine Parotid mass Expected: 05/15/2023 (Approximate), Expires: 05/15/2024 documented as of this encounter Procedures Procedure Name Priority Date/Time Associated Diagnosis Comments CBC WITH AUTO DIFFERENTIAL Routine 05/15/2023 10:19 AM EDT Malignant neoplasm of upper-outer quadrant of right breast in female, estrogen receptor positive COMPREHENSIVE METABOLIC PANEL Routine 05/15/2023 10:15 AM EDT Malignant neoplasm of upper-outer quadrant [...] Vahe Godoy MD 07/05/2023 08:30 AM EDTWorkstation: [id number] Clara Holbrook LONI [facility] MRI PROCEDURES * CBC auto differential (05/15/2023 10:19 AM EDT) Auto WBC 10.7 3.0 - 11.3 10*3/uL LAB HEMATOLOGY METHOD 05/15/2023 10:47 AM [facility] RBC 5.26 3.45 - 5.40 10*6/uL LAB HEMATOLOGY METHOD 05/15/2023 10:47 AM [facility] Hemoglobin 15.2 10.0 - 16.0 g/dL LAB HEMATOLOGY METHOD 05/15/2023 10:47 AM [facility] Hematocrit 45.0 29.9 - 45.5 % LAB HEMATOLOGY METHOD 05/15/2023 10:47 AM [facility] MCV 85.6 78.2 - 101.8 fL LAB HEMATOLOGY METHOD 05/15/2023 10:47 AM [facility] MCH 29.0 26.4 - 33.3 pg LAB HEMATOLOGY METHOD 05/15/2023 10:47 AM [facility] MCHC 33.8 32.5 - 35.3 g/dL LAB HEMATOLOGY METHOD 05/15/2023 10:47 AM [facility] RDW 14.0 10.1 - 16.2 % LAB HEMATOLOGY METHOD 05/15/2023 10:47 AM [facility] MPV 8.9 6.4 - 10.4 fL LAB HEMATOLOGY METHOD 05/15/2023 10:47 AM [facility] Neutrophils % 65 43 - 83 % LAB HEMATOLOGY METHOD 05/15/2023 10:47 AM [facility] Lymphocytes % 26 10 - 42 % LAB HEMATOLOGY METHOD 05/15/2023 10:47 AM [facility] Monocytes % 6 1 - 14 % LAB HEMATOLOGY METHOD 05/15/2023 10:47 AM [facility] Eosinophils % 2 0 - 11 % LAB HEMATOLOGY METHOD 05/15/2023 10:47 AM [facility] Basophils % 1 0 - 2 % LAB HEMATOLOGY METHOD 05/15/2023 10:47 AM [facility] Neutrophils Absolute 7.00 3.40 - 7.00 10*3/uL LAB HEMATOLOGY METHOD 05/15/2023 10:47 AM [facility] Lymphocytes Absolute 2.70 0.40 - 3.90 10*3/uL LAB HEMATOLOGY METHOD 05/15/2023 10:47 AM [facility] Monocytes Absolute 0.60 0.20 - 0.60 10*3/uL LAB HEMATOLOGY METHOD 05/15/2023 10:47 AM [facility] Eosinophils Absolute 0.30 0.00 - 0.90 10*3/uL LAB HEMATOLOGY METHOD 05/15/2023 10:47 AM [facility] Basophils Absolute 0.10 0.00 - 0.20 10*3/uL LAB HEMATOLOGY METHOD 05/15/2023 10:47 AM [facility] Platelets 222 122 - 454 10*3/uL LAB HEMATOLOGY METHOD 05/15/2023 10:47 AM [facility] Blood Venous blood specimen / Unknown 05/15/2023 10:19 AM EDT 05/15/2023 10:20 AM EDT Clara Holbrook LONI LAB BLOOD ORDERABLES [facility] [address] [place] [address], * (ABNORMAL) Comprehensive metabolic panel (05/15/2023 10:15 AM EDT) Sodium 135 133 - 144 mmol/L 05/15/2023 11:30 AM [facility] Potassium 4.8 3.6 - 5.2 mmol/L 05/15/2023 11:30 AM [facility] Comment:Specimen moderately hemolyzed. Results may be falsely elevated. Chloride 108(H) 98 - 107 mmol/L 05/15/2023 11:30 AM [facility] CO2 22 21 - 32 mmol/L 05/15/2023 11:30 AM [facility] Anion Gap 5 5 - 15 mmol/L 05/15/2023 11:30 AM [facility] BUN 11 7 - 18 mg/dL 05/15/2023 11:30 AM [facility] Creatinine 1.30(H) 0.55 - 1.02 mg/dL 05/15/2023 11:30 AM [facility] BUN/Creatinine Ratio 8.46(L) 10.00 - 20.00 ratio 05/15/2023 11:30 AM [facility] Glucose 295(H) 70 - 110 mg/dL 05/15/2023 11:30 AM [facility] Calcium 8.9 8.5 - 10.1 mg/dL 05/15/2023 11:30 AM [facility] AST 33 15 - 37 U/L 05/15/2023 11:30 AM [facility] Comment:Specimen moderately hemolyzed. Results may be falsely elevated. ALT (SGPT) 18 13 - 56 U/L 05/15/2023 11:30 AM EDT [facility] Alkaline Phosphatase 60 45 - 117 U/L 05/15/2023 11:30 AM [facility] Total Protein 7.5 6.4 - 8.4 g/dL 05/15/2023 11:30 AM [facility] Albumin 3.2(L) 3.4 - 5.0 g/dL 05/15/2023 11:30 AM [facility] Globulin, Total 4.3 2.4 - 4.8 g/dL 05/15/2023 11:30 AM [facility] A/G Ratio 0.7 0.6 - 1.6 05/15/2023 11:30 AM [facility] Total Bilirubin 0.4 0.0 - 1.0 mg/dL 05/15/2023 11:30 AM [facility] eGFR 48.0(L) >60.0 - 200.0 mL/min/1.7 3m*2 05/15/2023 11:30 AM [facility] Blood Venous blood specimen / Unknown 05/15/2023 10:15 AM EDT 05/15/2023 10:15 AM EDT Clara Holbrook APRN LAB BLOOD ORDERABLES [facility] [address] [place] [address], documented in this encounter Visit Diagnoses Diagnosis Malignant neoplasm of upper-outer quadrant of right breast in female, estrogen receptor positive- Primary Parotid mass Swelling, mass, or lump in head and neck Malignant neoplasm of upper-outer quadrant of right breast in female, estrogen receptor positive documented in this encounter Care Teams Meat Pumper Relationship Specialty Start Date End Date Ricardo Contreras MD [address] [place] [address] PCP - General Jalil Marie MD [address] [place] [address] Consulting Physician Hematology 04/12/22 Barbie Jorgensen APRN [address] [place] [address] Nurse Practitioner Oncology 06/21/22 Clara Holbrook APRN [address] [facility] [place] [address] Nurse Practitioner Oncology 01/24/23 documented as of this encounter
--- OUTSIDE RECORDS SUMMARY | 2024-08-18 13:08 | XMS_ITS | Encounter Summary ---
Author Organization [facility] Ce nter Address [address] [place] [address] [place] [address] Care Team Providers Care Disassembler Product Name Role Phone Ricardo Contreras MD Primary Care Provider + Jalil Marie MD Unavailable [phone] Barbie Jorgensen PLATE ROLLER Unavailable [phone] Clara Holbrook PLATE ROLLER Unavailable [phone] Encounter Details Date Type Department Care Team (Latest Contact Info) Description 05/02/2023 7:37 AM EDT - 05/02/2023 11:59 PM EDT Hospital Encounter [facility] [address], [place] [id number] Type 2 diabetes mellitus with hyperglycemia; Dehydration; Candidiasis of vulva and vagina; Chronic migraine without aura, not intractable, without status migrainosus; Major depressive disorder, recurrent, mild; Hypoglycemia, unspecified; Cervicalgia; Disorder of bone, unspecified; Encounter for screening for depression; Other half-way (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 Discharge Disposition: Home or Self Care Social History Tobacco Use Types Packs/Day Years Used Date Smoking Tobacco: Former Cigarettes 1.5 - 2018 Passive Smoke Exposure: Current Smokeless [...] surgery 03/16/2022 ergocalciferol (Vitamin D2) 1.25 MG (92207 UT) capsule 1 capsule (50,000 Units) 1 [...] of procedure 01/18/2022 Lancets ([facility] Delica [facility] [id number][facility], at noon, and at [...] Diagnosis Comments CBC WITH AUTO DIFFERENTIAL Routine 05/02/2023 7:54 AM EDT Type 2 diabetes mellitus with hyperglycemia Dehydration Candidiasis of vulva and vagina Chronic migraine without aura, not intractable, without status migrainosus Major depressive disorder, recurrent, mild Hypoglycemia, unspecified Cervicalgia Disorder of bone, unspecified Encounter for screening for depression Other oil heaterman (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 VITAMIN D, TOTAL Routine 05/02/2023 7:54 AM EDT Type 2 diabetes mellitus with hyperglycemia Dehydration Candidiasis of vulva and vagina Chronic migraine without aura, not intractable, without status migrainosus Major depressive disorder, recurrent, mild Hypoglycemia, unspecified Cervicalgia Disorder of bone, unspecified Encounter for screening for depression Other oil heaterman (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 TSH Routine 05/02/2023 7:54 AM EDT Type 2 diabetes mellitus with hyperglycemia Dehydration Candidiasis of vulva and vagina Chronic migraine without aura, not intractable, without status migrainosus Major depressive disorder, recurrent, mild Hypoglycemia, unspecified Cervicalgia Disorder of bone, unspecified Encounter for screening for depression Other oil heaterman (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 HEMOGLOBIN A1C Routine 05/02/2023 7:54 AM EDT Type 2 diabetes mellitus with hyperglycemia Dehydration Candidiasis of vulva and vagina Chronic migraine without aura, not intractable, without status migrainosus Major depressive disorder, recurrent, mild Hypoglycemia, unspecified Cervicalgia Disorder of bone, unspecified Encounter for screening for depression Other half-way (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 FOLATE Routine 05/02/2023 7:54 AM EDT Type 2 diabetes mellitus with hyperglycemia Dehydration Candidiasis of vulva and vagina Chronic migraine without aura, not intractable, without status migrainosus Major depressive disorder, recurrent, mild Hypoglycemia, unspecified Cervicalgia Disorder of bone, unspecified Encounter for screening for depression Other half-way (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 VITAMIN B12 Routine 05/02/2023 7:54 AM EDT Type 2 diabetes mellitus with hyperglycemia Dehydration Candidiasis of vulva and vagina Chronic migraine without aura, not intractable, without status migrainosus Major depressive disorder, recurrent, mild Hypoglycemia, unspecified Cervicalgia Disorder of bone, unspecified Encounter for screening for depression Other half-way (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 CK Routine 05/02/2023 7:54 AM EDT Type 2 diabetes mellitus with hyperglycemia Dehydration Candidiasis of vulva and vagina Chronic migraine without aura, not intractable, without status migrainosus Major depressive disorder, recurrent, mild Hypoglycemia, unspecified Cervicalgia Disorder of bone, unspecified Encounter for screening for depression Other half-way (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 LIPID PANEL Routine 05/02/2023 7:54 AM EDT Type 2 diabetes mellitus with hyperglycemia Dehydration Candidiasis of vulva and vagina Chronic migraine without aura, not intractable, without status migrainosus Major depressive disorder, recurrent, mild Hypoglycemia, unspecified Cervicalgia Disorder of bone, unspecified Encounter for screening for depression Other half-way (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 COMPREHENSIVE METABOLIC PANEL Routine 05/02/2023 7:54 AM EDT Type 2 diabetes mellitus with hyperglycemia Dehydration Candidiasis of vulva and vagina Chronic migraine without aura, not intractable, without status migrainosus Major depressive disorder, recurrent, mild Hypoglycemia, unspecified Cervicalgia Disorder of bone, unspecified Encounter for screening for depression Other oil heaterman (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 documented in this encounter Results * (ABNORMAL) Vitamin D 25 hydroxy (05/02/2023 7:54 AM EDT) [facility] Vitamin D, Total 28.8(L) 30.0 - 100.0 ng/mL 05/02/2023 9:44 AM EDT [facility] Blood Venous blood specimen / Unknown Venipuncture / Unknown 05/02/2023 7:54 AM EDT 05/02/2023 7:54 AM EDT Ricardo Contreras MD LAB BLOOD ORDERA BLES Performing Organization Address City/[facility]/ZIP Co de Phone Number [facility] [address] [place] [address], [place] [phone] * Folate (05/02/2023 7:54 AM EDT) [facility] Folate 10.0 3.1 - 17.5 ng/mL 05/02/2023 1:09 PM EDT [facility] Blood Venous blood specimen / Unknown Venipuncture / Unknown 05/02/2023 7:54 AM EDT 05/02/2023 7:54 AM EDT Ricardo Contreras MD LAB BLOOD ORDERA BLES Performing Organization Address [facility]/ZIP Co de Phone Number [facility] [address] [place] [address], [place] [phone] * (ABNORMAL) Vitamin B12 (05/02/2023 7:54 AM EDT) [facility] Vitamin B-12 161(L) 254 - 1,320 pg/mL 05/03/2023 5:35 PM EDT [facility] Blood Venous blood specimen / Unknown Venipuncture / Unknown 05/02/2023 7:54 AM EDT 05/02/2023 7:54 AM EDT Ricardo Contreras MD LAB BLOOD ORDERA BLES Performing Organization Address City/[facility]/ZIP Co de Phone Number [facility] [address] [place] [address], [place] [phone] * TSH (05/02/2023 7:54 AM EDT) Pathologist [facility] TSH 0.706 0.358 - 3.740 uIU/mL 05/02/2023 1:09 PM EDT [facility] Blood Venous blood specimen / Unknown Venipuncture / Unknown 05/02/2023 7:54 AM EDT 05/02/2023 7:54 AM EDT Ricardo Contreras MD LAB BLOOD ORDERA BLES Performing Organization Address City/[facility]/ZIP Co de Phone Number [facility] [address] [place] [address], * (ABNORMAL) Lipid panel (05/02/2023 7:54 AM EDT) Pathologist [facility] Triglycerides 481(H) See comment below for reference ranges. mg/dL 05/02/2023 1:09 PM EDT [facility] Cholesterol 219(H) Normal: <200 mg/dL Borderline: 200 - 240 mg/dL High Risk: >240 mg/dL mg/dL 05/02/2023 1:09 PM EDT [facility] LDL Calculated 05/02/2023 1:09 [facility] Comment:Calculated LDL inval id, triglycerides >400 mg/dl HDL 33(L) 39 - 60 mg/dL 05/02/2023 1:09 PM EDT [facility] Cholesterol/HDL Ratio 6.6 05/02/2023 1:09 PM EDT [facility] Blood Venous blood specimen / Unknown Venipuncture / Unknown 05/02/2023 7:54 AM EDT 05/02/2023 7:54 AM EDT Ricardo Contreras MD LAB BLOOD ORDERA BLES [facility] [address] [place] [address], * (ABNORMAL) Hemoglobin A1c (05/02/2023 7:54 AM EDT) Pathologist [facility] Hemoglobin A1C 7.0(H) 3.0 - 6.0 % 05/02/2023 9:46 AM EDT [facility] Comment: Additional Reference Ranges: 6.0 - 9.0% Controlled Diabetic >9.0 ?Poorly Controlled Diabetic *Hemoglobin A1c is an FDA approved test for monitoring oil heaterman glucose control in individuals with diabetes. It is not an approved screening test for diagnosing type 1 and type 2 diabetes. Results of Hemoglobin A1c are not reliable in patients with chronic blood loss, consequent variable erythrocyte lifespan, hemolytic diseases, , and significant blood loss. MEAN BLOOD GLUCOSE 154.2 mg/dl 05/02/2023 9:46 AM EDT [facility] Blood Venous blood specimen / Unknown Venipuncture / Unknown 05/02/2023 7:54 AM EDT 05/02/2023 7:54 AM EDT Ricardo Contreras MD LAB BLOOD ORDERA BLES [facility] [address] [place] [address], [place] [phone] * CK (05/02/2023 7:54 AM EDT) [facility] Total CK 38 21 - 232 U/L 05/02/2023 1:09 PM EDT [facility] Blood Venous blood specimen / Unknown Venipuncture / Unknown 05/02/2023 7:54 AM EDT 05/02/2023 7:54 AM EDT Ricardo Contreras MD LAB BLOOD ORDERA BLES Performing Organization Address City/[facility]/ZIP Co de Phone Number [facility] [address] [place] [address], [place] [phone] * (ABNORMAL) Comprehensive metabolic panel (05/02/2023 7:54 AM EDT) [facility] Sodium 143 133 - 144 mmol/L 05/02/2023 1:[facility] Potassium 3.7 3.6 - 5.2 mmol/L 05/02/2023 1:09 PM [facility] Chloride 109(H) 98 - 107 mmol/L 05/02/2023 1:09 PM [facility] CO2 27 21 - 32 mmol/L 05/02/2023 1:09 PM [facility] Anion Gap 7 5 - 15 mmol/L 05/02/2023 1:09 PM [facility] BUN 15 7 - 18 mg/dL 05/02/2023 1:09 PM [facility] Creatinine 1.20(H) 0.55 - 1.02 mg/dL 05/02/2023 1:09 PM [facility] BUN/Creatinine Ratio 12.50 10.00 - 20.00 ratio 05/02/2023 1:09 PM [facility] Glucose 168(H) 70 - 110 mg/dL 05/02/2023 1:09 PM [facility] Calcium 9.6 8.5 - 10.1 mg/dL 05/02/2023 1:09 PM [facility] AST 16 15 - 37 U/L 05/02/2023 1:09 PM [facility] ALT (SGPT) 19 13 - 56 U/L 05/02/2023 1:09 PM [facility] Alkaline Phosphatase 57 45 - 117 U/L 05/02/2023 1:09 PM [facility] Total Protein 7.4 6.4 - 8.4 g/dL 05/02/2023 1:09 PM [facility] Albumin 3.6 3.4 - 5.0 g/dL 05/02/2023 1:09 PM [facility] Globulin, Total 3.8 2.4 - 4.8 g/dL 05/02/2023 1:09 PM [facility] A/G Ratio 0.9 0.6 - 1.6 05/02/2023 1:09 PM [facility] Total Bilirubin 0.4 0.0 - 1.0 mg/dL 05/02/2023 1:09 PM T [facility] eGFR 52.8(L) >60.0 - 200.0 mL/min/1.7 3m*2 05/02/2023 1:09 PM [facility] Blood Venous blood specimen / Unknown Venipuncture / Unknown 05/02/2023 7:54 AM EDT 05/02/2023 7:54 AM EDT Ricardo Contreras MD LAB BLOOD ORDERA BLES [facility] [address] [place] [address], * CBC auto differential (05/02/2023 7:54 AM EDT) Auto WBC 9.0 3.0 - 11.3 10*3/uL LAB HEMATOLOGY METHOD 05/02/2023 9:17 AM [facility] RBC 5.27 3.45 - 5.40 10*6/uL LAB HEMATOLOGY METHOD 05/02/2023 9:17 AM [facility] Hemoglobin 15.3 10.0 - 16.0 g/dL LAB HEMATOLOGY METHOD 05/02/2023 9:17 AM [facility] Hematocrit 44.6 29.9 - 45.5 % LAB HEMATOLOGY METHOD 05/02/2023 9:17 AM [facility] MCV 84.5 78.2 - 101.8 fL LAB HEMATOLOGY METHOD 05/02/2023 9:17 AM [facility] MCH 29.1 26.4 - 33.3 pg LAB HEMATOLOGY METHOD 05/02/2023 9:17 AM [facility] MCHC 34.4 32.5 - 35.3 g/dL LAB HEMATOLOGY METHOD 05/02/2023 9:17 AM [facility] RDW 14.1 10.1 - 16.2 % LAB HEMATOLOGY METHOD 05/02/2023 9:17 AM [facility] MPV 9.0 6.4 - 10.4 fL LAB HEMATOLOGY METHOD 05/02/2023 9:17 AM [facility] Neutrophils % 56 43 - 83 % LAB HEMATOLOGY METHOD 05/02/2023 9:17 AM [facility] Lymphocytes % 35 10 - 42 % LAB HEMATOLOGY METHOD 05/02/2023 9:17 AM [facility] Monocytes % 5 1 - 14 % LAB HEMATOLOGY METHOD 05/02/2023 9:17 AM [facility] Eosinophils % 2 0 - 11 % LAB HEMATOLOGY METHOD 05/02/2023 9:17 AM [facility] Basophils % 1 0 - 2 % LAB HEMATOLOGY METHOD 05/02/2023 9:17 AM [facility] Neutrophils Absolute 5.10 3.40 - 7.00 10*3/uL LAB HEMATOLOGY METHOD 05/02/2023 9:17 AM [facility] Lymphocytes Absolute 3.20 0.40 - 3.90 10*3/uL LAB HEMATOLOGY METHOD 05/02/2023 9:17 AM [facility] Monocytes Absolute 0.50 0.20 - 0.60 10*3/uL LAB HEMATOLOGY METHOD 05/02/2023 9:17 AM [facility] Eosinophils Absolute 0.20 0.00 - 0.90 10*3/uL LAB HEMATOLOGY METHOD 05/02/2023 9:17 AM [facility] Basophils Absolute 0.10 0.00 - 0.20 10*3/uL LAB HEMATOLOGY METHOD 05/02/2023 9:17 AM [facility] Platelets 204 122 - 454 10*3/uL LAB HEMATOLOGY METHOD 05/02/2023 9:17 AM [facility] Blood Venous blood specimen / Unknown Venipuncture / Unknown 05/02/2023 7:54 AM EDT 05/02/2023 7:54 AM EDT Ricardo Contreras MD LAB BLOOD ORDERA BLES [facility] [address] [place] [address], documented in this encounter Visit Diagnoses Diagnosis Type 2 diabetes mellitus with hyperglycemia Dehydration Candidiasis of vulva and vagina Chronic migraine without aura, not intractable, without status migrainosus Major depressive disorder, recurrent, mild Major depressive disorder, recurrent episode, mild Hypoglycemia, unspecified Cervicalgia Disorder of bone, unspecified Encounter for screening for depression Other oil heaterman (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 documented in this encounter Care Teams Disassembler Product Relationship Specialty Start Date End Date Ricardo Contreras MD [address] [place] [address] PCP - General Jalil Marie MD [address] [place] [address] Consulting Physician Hematology 04/12/22 Barbie Jorgensen APRN [address] [place] [address] Nurse Practitioner Oncology 06/21/22 Clara Holbrook APRN [address] [place] [address] Nurse Practitioner Oncology 01/24/23 documented as of this encounter
--- OUTSIDE RECORDS SUMMARY | 2024-08-18 13:08 | XMS_ITS | Encounter Summary ---
Author Organization [facility] nter Address [address] [place], [place] [id number] [place] [address] Care Team Providers Care Leasing Property Manager Name Role Phone Ricardo Contreras MD Primary Care Provider + Jalil Marie MD Unavailable [phone] Barbie Jorgensen HOME STAGING SPECIALIST Unavailable [phone] Clara Holbrook HOME STAGING SPECIALIST Unavailable [phone] Encounter Details Date Type Department Care Team (Latest Contact Info) Description 05/02/2023 Travel Social History Tobacco Use Types Packs/Day [...] AM EDT documented as of this encounter Plan of Treatment Not on file documented as of this encounter Visit Diagnoses Not on filedocumented in this encounter Care Teams Leasing Property Manager Relationship Specialty Start Date End Date Ricardo Contreras MD [address] [place] [address] PCP - General Jalil Marie MD [address] [place] [address] Consulting Physician Hematology 04/12/22 Barbie Jorgensen APRN [address] [place] [address] Nurse Practitioner Oncology 06/21/22 Clara Holbrook APRN [address] [place] [address] Nurse Practitioner Oncology 01/24/23 documented as of this encounter
--- OUTSIDE RECORDS SUMMARY | 2024-08-18 13:08 | XMS_ITS | Encounter Summary ---
Author Organization [facility] Address [address] [place] [address] Care Team Providers Care Heat Treat Furnace Operator Name Role Phone Ricardo Contreras MD Primary Care Provider + Jalil Marie MD Unavailable Barbie Jorgensen SUPPLIER QUALITY SPECIALIST Unavailable [phone] Clara Holbrook SUPPLIER QUALITY SPECIALIST Unavailable [phone] Reason for Referral * Imaging (Routine) - Closed Specialty Diagnoses / Procedures Referred By Contac t Referred To Contact Radiology Diagnoses Elbow pain, left Procedures US venous UE left doppler Clara Holbrook APRN [address] [place] [address] Referral ID Status Reason Start Date Expiration Date Visits Re quested Visits Authorized [id number] Closed 01/24/2023 01/24/2024 1 1 Reason for Visit * Imaging (Routine) - Closed Specialty Diagnoses / Procedures Referred By Contac t Referred To Contact Radiology Diagnoses Elbow pain, left Procedures US venous UE left doppler Clara Holbrook APRN [address] [place] [address] Referral ID Status Reason Start Date Expiration Date Visits Re quested Visits Authorized [id number] Closed 01/24/2023 01/24/2024 1 1 Encounter Details Date Type Department Care Team (Latest Contact Info) Description 01/24/2023 12:28 PM EDT - 01/24/2023 11:59 PM EDT Hospital Encounter [facility] [address] [place] [address] Elbow pain, left Discharge Disposition: Home or Self Care Social History Tobacco Use Types Packs/Day Years Used Date Smoking Tobacco: Former Cigarettes 1.5 20 1 - 2018 Passive Smoke Exposure: Current Smokeless Tobacco: Never Alcohol Use Standard Drinks/Week Comments Never 0 (1 standard drink = 0.6 oz pur e alcohol) Sex and Gender Information Value Date Recorded Sex Assigned at Female 2021 11:11 AM EST Gender Identity Female 2021 11:11 AM EST Sexual Orientation Straight 2021 11 :11 AM EST COVID-19 Exposure Response Date Recorded In the last 10 days, have yo u been in contact with someone who was confirmed or suspected to have Coronavirus/COVID-19? No / Unsure 01/24/2023 10:36 AM EDT documented as of this encounter [...] surgery 03/16/2022 ergocalciferol (Vitamin D2) 1.25 MG (32863 UT) capsule 1 capsule (50,000 Units) 1 [...] of procedure 01/18/2022 Lancets (OneTouch Delica Plus [id number]) [facility] in the morning, at noon, [...] and at bedtime. Take morning of procedure amitriptyline (Elavil) 100 MG tablet Take 1 tablet (100 mg) by mouth at bedtime. Take night before surgery 03/16/2022 04/10/2023 anastrozole (Arimidex) 1 MG chemo tablet Take 1 tablet (1 mg total) by mouth in the morning. 30 tablet 2 10/18/2022 04/10/2023 Calcium 600+D 600-200 MG-UNIT tablet Take 1 tablet by mouth in the morning and at bedtime. 09/05/2021 04/10/2023 SSD 1 % cream Apply 1 application. topically in the morning and at bedtime. 50 g 1 10/25/2022 08/06/2023 documented as of this encounter Plan of Treatment Not on file documented as of this encounter Procedures Procedure Name Priority Date/Time Associated Diagnosis Comments US VENOUS UE LEFT DOPPLER Routine 01/24/2023 1:05 PM EDT Elbow pain, left documented in this encounter Results * US venous UE left doppler (01/24/2023 1:05 PM EDT) Anatomical Region Laterality Modality Upper Extremities Ultrasound 01/24/2023 1:06 PM EDT Impressions 01/24/2023 1:19 PM EDT No evidence of deep venous thrombosis involving the left upper extremity. Report Sign Date: 01/24/2023 1:19 PM, Electronically Signed By: Kiran Anderson 01/24/2023 1:19 PM EDT PROCEDURE: US VENOUS UE LEFT DOPPLER: 01/24/2023 CLINICAL INFORMATION: left arm pain The visualized portion of the left upper extremity venous structures including the internal jugular vein, subclavian vein, axillary vein, basilic vein, brachial vein, cephalic vein, radial vein, and ulnar vein are patent. There is no evidence of thrombus formation. Procedure Note Kiran Herman MD - 01/24/2023 PROCEDURE: US VENOUS UE LEFT DOPPLER: 01/24/2023 CLINICAL INFORMATION: left arm pain The visualized portion of the left upper extremity venous structuresincluding the internal jugular vein, subclavian vein, axillary vein,basilic vein, brachial vein, cephalic vein, radial vein, and ulnar veinare patent. There is no evidence of thrombus formation. IMPRESSION: No evidence of deep venous thrombosis involving the left upperextremity. Report Sign Date: 01/24/2023 1:19 PM, Electronically Signed By: Anne CAREY Clara Holbrook APRN [place] [facility] PROCEDURES documented in this encounter Visit Diagnoses Diagnosis Elbow pain, left Pain in joint, upper arm documented in this encounter Care Teams Heat Treat Furnace Operator Relationship Specialty Start Date End Date Ricardo Contreras MD [address] [place] [id number] PCP - General Jalil Marie MD [address] [place] [address] Consulting Physician Hematology 04/12/22 Barbie Jorgensen APRN [address] [place] [address] Nurse Practitioner Oncology 06/21/22 Clara Holbrook APRN [address] [place] [address] Nurse Practitioner Oncology 01/24/23 documented as of this encounter
--- OUTSIDE RECORDS SUMMARY | 2024-08-18 13:08 | XMS_ITS | Encounter Summary ---
Author Organization [facility] nter Address [address] [place] [address] Care Team Providers Care Top Dyeing Machine Loader Name Role Phone Ricardo Contreras MD Primary Care Provider + Jalil Marie MD Unavailable Barbie Jorgensen COLLECTOR OF INTERNAL REVENUE Unavailable [phone] Clara Holbrook COLLECTOR OF INTERNAL REVENUE Unavailable [phone] Reason for Visit * Imaging (Routine) - Closed Specialty Diagnoses / Procedures Referred By Frantz moreno Referred To Contact Radiology Diagnoses Parotid cyst Procedures CT soft tissue neck w IV contrast Clara Holbrook APRN [address] [place] [address] [facility] [address], [place] [address] Referral ID Status Reason Start Date Expiration Date Visits Re quested Visits Authorized [id number] Closed 03/26/2023 05/25/2023 1 1 Encounter Details Date Type Department Care Team (Latest Contact Info) Description 05/11/2023 12:22 PM EDT - 05/11/2023 12:25 PM EDT Hospital Encounter [facility] [address] [place] [address] Discharge Disposition: Home or Self [...] surgery 03/16/2022 ergocalciferol (Vitamin D2) 1.25 MG (71467 UT) capsule 1 capsule (50,000 Units) 1 [...] of procedure 01/18/2022 Lancets (OneTouch Delica Plus [id number]) misc in the morning, at noon, and [...] Procedure Name Priority Date/Time Associated Diagnosis Comments CT SOFT TISSUE NECK W IV CONTRAST Routine 05/11/2023 2:44 PM EDT Parotid cyst documented in this encounter Visit Diagnoses Not on filedocumented in this encounter Administered Medications Inactive Administered Medications - up to 3 most recent administrations Medication Order MAR Action Action Date Dose Rate Site iopamidol (Isovue-300) 61 % injection 100 mL 100 mL, Intravenous, Once in imaging, Starting on Sun05/11/23 at 1444, For 1 dose Given 05/11/2023 2:44 PM EDT 100 mL documented in this encounter Care Teams Top Dyeing Machine Loader Relationship Specialty Start Date End Date Ricardo Contreras MD [address] [place] [address] PCP - General Jalil Marie MD [address] [place] [address] Consulting Physician Hematology 04/12/22 Barbie Jorgensen APRN [address] [place] [address], [place] [address] Nurse Practitioner Oncology 06/21/22 Clara Holbrook APRN [address] [place] [address] Nurse Practitioner Oncology 01/24/23 documented as of this encounter
--- OUTSIDE RECORDS SUMMARY | 2024-08-18 13:08 | XMS_ITS | Encounter Summary ---
Author Organization [facility] nter Address [address] [place], [place] [id number] [place] [address] Care Team Providers Care Muleser Name Role Phone Ricardo Contreras MD Primary Care Provider + Jalil Marie MD Unavailable [phone] Barbie Jorgensen INSPECTOR AIR CARRIER Unavailable [phone] Clara Holbrook INSPECTOR AIR CARRIER Unavailable [phone] Encounter Details Date Type Department Care Team (Latest Contact Info) Description 01/24/2023 12:28 PM EDT - 01/24/2023 11:59 PM EDT Hospital Encounter [facility] [address] [place] [id number] Elbow pain, left Discharge Disposition: Home or Self Care Social History Tobacco Use Types Packs/Day Years Used Date Smoking Tobacco: Former Cigarettes 1.5 20 - 2019 Passive Smoke Exposure: Current Smokeless [...] surgery 03/16/2022 ergocalciferol (Vitamin D2) 1.25 MG (25000 UT) capsule 1 capsule (50,000 Units) 1 [...] of procedure 01/18/2022 Lancets (OneTouch Delica Plus [id number]) [facility] [place] in the morning, at [...] Procedure Name Priority Date/Time Associated Diagnosis Comments XR ELBOW 1-2 VIEWS LEFT Routine 01/24/2023 1:15 PM EDT Elbow pain, left documented in this encounter Results * XR elbow 1 or 2 views left (01/24/2023 1:15 PM EDT) Anatomical Region Laterality Modality Upper Extremities, Elbow Left Digital Radiography 01/24/2023 1:15 PM EDT Impressions 01/24/2023 1:20 PM EDT Negative left elbow radiograph. Report Sign Date: 01/24/2023 1:20 PM, Electronically Signed By: Kiran Herman MD Narrative 01/24/2023 1:20 PM EDT PROCEDURE: XR ELBOW 1-2 VIEWS LEFT: 01/24/2023 CLINICAL INFORMATION: left arm pain Alignment is anatomic. There is no evidence of acute fracture, or dislocation. Soft tissues are unremarkable. Procedure Note Kiran Herman MD - 01/24/2023 PROCEDURE: XR ELBOW 1-2 VIEWS LEFT: 01/24/2023 CLINICAL INFORMATION: left arm pain Alignment is anatomic. There is no evidence of acute fracture, ordislocation. Soft tissues are unremarkable. IMPRESSION: Negative left elbow radiograph. Report Sign Date: 01/24/2023 1:20 PM, Electronically Signed By: Anne CAREY Clara Holbrook APRN IMG XR PROCEDURES documented in this encounter Visit Diagnoses Diagnosis Elbow pain, left Pain in joint, upper arm documented in this encounter Care Teams Muleser Relationship Specialty Start Date End Date Ricardo Contreras MD [address] [place] [address] PCP - General Jalil Marie MD [address] [place] [address] Consulting Physician Hematology 04/12/22 Barbie Jorgensen APRN [address] [facility] [place] [address] Nurse Practitioner Oncology 06/21/22 Clara Holbrook APRN [address] [facility] [place] [address] Nurse Practitioner Oncology 01/24/23 documented as of this encounter
--- OUTSIDE RECORDS SUMMARY | 2024-08-18 13:08 | XMS_ITS | Encounter Summary ---
Author Organization [facility] nter Address [address] [place] [address] Care Team Providers Care Spanish Moss Picker Name Role Phone Ricardo Contreras MD Primary Care Provider + Jalil Marie MD Unavailable Barbie Jorgensen EMPLOYMENT INSTRUCTIONAL ASSOCIATE Unavailable [phone] Clara Holbrook EMPLOYMENT INSTRUCTIONAL ASSOCIATE Unavailable [phone] Reason for Visit * Imaging (Routine) - Closed Specialty Diagnoses / Procedures Referred By Frantz moreno Referred To Contact Radiology Diagnoses Malignant neoplasm of upper-outer quadrant of right breast in female, estrogen receptor positive Procedures CT abdomen pelvis w IV contrast Clara Holbrook, EMPLOYMENT INSTRUCTIONAL ASSOCIATE [address] [place] [address] [facility] [address] [place] [address] Referral ID Status Reason Start Date Expiration Date V isits Requested Visits Authorized [id number] Closed Specialty Services Required 04/10/2023 06/09/2023 1 1 Encounter Details Date Type Department Care Team (Latest Contact Info) Description 05/11/2023 12:26 PM EDT - 05/11/2023 11:59 PM EDT Hospital Encounter [facility] [address] [place] [address] Discharge Disposition: Home or Self [...] surgery 03/16/2022 ergocalciferol (Vitamin D2) 1.25 MG (11423 UT) capsule 1 capsule (50,000 Units) 1 [...] of procedure 01/18/2022 Lancets (OneTouch Delica Plus [id number]) misc in the morning, at noon, and [...] Name Priority Date/Time Associated Diagnosis Comments CT ABDOMEN PELVIS W IV CONTRAST Routine 05/11/2023 2:47 PM EDT Malignant neoplasm of upper-outer quadrant of right breast in female, estrogen receptor positive CT CHEST W IV CONTRAST Routine 05/11/2023 2:47 PM EDT Malignant neoplasm of upper-outer quadrant of right breast in female, estrogen receptor positive documented in this encounter Results * CT abdomen pelvis w IV contrast (05/11/2023 2:47 PM EDT) Anatomical Region Laterality Modality Body, Pelvis, Abdomen Computed T omography 05/11/2023 2:47 PM EDT Impressions 05/11/2023 3:29 PM EDT 1. There is an indeterminate intermediate to increased density lesion involving either the right kidney or the right adrenal gland measuring 1.5 cm. Recommend further evaluation with MRI abdomen with and without contrast. 2. Left adrenal nodularity measuring up to 3.2 cm. Report Sign Date: 05/11/2023 3:29 PM, Electronically Signed By: Sang Anderson 05/11/2023 3:29 PM EDT PROCEDURE: CT ABDOMEN PELVIS W IV CONTRAST: 05/11/2023 CLINICAL INFORMATION: breast cancer breast cancer Comparison: None. There are degenerative changes present in the spine. There is hepatic steatosis of the liver with splenomegaly. Gallbladder and spleen appear intact. Probable gallstones or sludge are seen. There is nodularity of the left adrenal gland measuring up to 3 cm. There is a intermediate to increased density nodule seen along the anterior aspect of the upper pole of the right kidney measuring approximately 1.5 cm which appears contiguous with the adrenal gland. No bowel obstruction. Procedure Note Sang George MD - 05/11/2023 PROCEDURE: CT ABDOMEN PELVIS W IV CONTRAST: 05/11/2023 CLINICAL INFORMATION: breast cancer breast cancer Comparison: None. There are degenerative changes present in the spine. There is hepatic steatosis of the liver with splenomegaly. Gallbladder andspleen appear intact. Probable gallstones or sludge are seen. There is nodularity of the left adrenal gland measuring up to 3 cm. Thereis a intermediate to increased density nodule seen along the anterioraspect of the upper pole of the right kidney measuring approximately 1.5cm which appears contiguous with the adrenal gland. No bowel obstruction. IMPRESSION: 1. There is an indeterminate intermediate to increased density lesioninvolving either the right kidney or the right adrenal gland measuring 1.5cm. Recommend further evaluation with MRI abdomen with and withoutcontrast. 2. Left adrenal nodularity measuring up to 3.2 cm. Report Sign Date: 05/11/2023 3:29 PM, Electronically Signed By: Samir CAREY Clara Holbrook APRN [facility] PROCEDURES * CT chest w IV contrast (05/11/2023 2:47 PM EDT) Anatomical Region Laterality Modality Body, Chest Computed Tomogra phy 05/11/2023 2:47 PM EDT Impressions 05/11/2023 3:29 PM EDT 1. A few scattered pulmonary nodules up to 3 mm in size appear unchanged. No new nodules or infiltrates. Follow-up chest CT recommended. 2. Asymmetric appearance of the breast implants with a left breast implant more inferiorly oriented than the right. Correlate clinically. 3. There is mild stranding and density associated with the right breast implant particularly superiorly and medially. Correlate clinically. Report Sign Date: 05/11/2023 3:29 PM, Electronically Signed By: Sang George MD Narrative 05/11/2023 3:29 PM EDT PROCEDURE: CT CHEST W IV CONTRAST: 05/11/2023 CLINICAL INFORMATION: breast cancer breast cancer Comparison: 06/14/2022. There are bilateral breast implants present. The (breast implant is more inferiorly oriented than the right. There is some stranding and density along the right breast implant. The heart size is stable. There is atheromatous calcified plaquing in the vasculature. There are degenerative changes in the spine. Lungs show a few scattered pulmonary nodules up to 3 mm in size. No acute infiltrates or new nodules. Procedure Note Sang George MD - 05/11/2023 PROCEDURE: CT CHEST W IV CONTRAST: 05/11/2023 CLINICAL INFORMATION: breast cancer breast cancer Comparison: 06/14/2022. There are bilateral breast implants present. The (breast implant is moreinferiorly oriented than the right. There is some stranding and densityalong the right breast implant. The heart size is stable. There is atheromatous calcified plaquing in thevasculature. There are degenerative changes in the spine. Lungs show a few scattered pulmonary nodules up to 3 mm in size. No acuteinfiltrates or new nodules. IMPRESSION: 1. A few scattered pulmonary nodules up to 3 mm in size appear unchanged.No new nodules or infiltrates. Follow-up chest CT recommended. 2. Asymmetric appearance of the breast implants with a left breast implantmore inferiorly oriented than the right. Correlate clinically. 3. There is mild stranding and density associated with the right breastimplant particularly superiorly and medially. Correlate clinically. Report Sign Date: 05/11/2023 3:29 PM, Electronically Signed By: Samir CAREY Clara Holbrook APRN [facility] PROCEDURES documented in this encounter Visit Diagnoses Not on filedocumented in this encounter Care Teams Spanish Moss Picker Relationship Specialty Start Date End Date Ricardo Contreras MD [address] [place] [address] PCP - General Jalil Marie MD [address] [place] [address] Consulting Physician Hematology 04/12/22 Barbie Jorgensen APRN [address] [place] [address] Nurse Practitioner Oncology 06/21/22 Clara Holbrook APRN [address] [place] [address] Nurse Practitioner Oncology 01/24/23 documented as of this encounter
--- OUTSIDE RECORDS SUMMARY | 2024-08-18 13:08 | XMS_ITS | Encounter Summary ---
Author Organization [facility] nter Address [address] [place], [place] [id number] [place] [address] Care Team Providers Care Real Estate Agent/Broker Name Role Phone Ricardo Contreras MD Primary Care Provider + Jalil Marei MD Unavailable [phone] Barbie Jorgensen METAL FABRICATING SUPERVISOR Unavailable [phone] Clara Holbrook METAL FABRICATING SUPERVISOR Unavailable [phone] Encounter Details Date Type Department Care Team (Latest Contact Info) Description 01/31/2023 Travel Social History Tobacco Use Types Packs/Day [...] on filedocumented in this encounter Care Teams Real Estate Agent/Broker Relationship Specialty Start Date End Date Ricardo Contreras MD [address] [place] [address] PCP - General Jalil Marie MD [address] [place] [address] Consulting Physician Hematology 04/12/22 Barbie Jorgensen APRN [address] [place] [address] Nurse Practitioner Oncology 06/21/22 Clara Holbrook APRN [address] [place] [address] Nurse Practitioner Oncology 01/24/23 documented as of this encounter
--- OUTSIDE RECORDS SUMMARY | 2024-08-18 13:08 | XMS_ITS | Encounter Summary ---
Author Organization [facility] nter Address [address] [place], [place] [id number] [place] [address] Care Team Providers Care Barrel Assembler Helper Name Role Phone Ricardo Contreras MD Primary Care Provider + Jalil Marie MD Unavailable [phone] Barbie Jorgensen HOSTEL PARENT Unavailable [phone] Clara Holbrook HOSTEL PARENT Unavailable [phone] Encounter Details Date Type Department Care Team (Latest Contact Info) Description 05/11/2023 Travel Social History Tobacco Use Types Packs/Day [...] on filedocumented in this encounter Care Teams Barrel Assembler Helper Relationship Specialty Start Date End Date Ricardo Contreras MD [address] [place] [address] PCP - General Jalil Marie MD [address] [place] [address] Consulting Physician Hematology 04/12/22 Barbie Jorgensen APRN [address] [place] [address] Nurse Practitioner Oncology 06/21/22 Clara Holbrook APRN [address] [place] [address] Nurse Practitioner Oncology 01/24/23 documented as of this encounter
--- OUTSIDE RECORDS SUMMARY | 2024-08-18 13:08 | XMS_ITS | Encounter Summary ---
Author Organization [facility] nter Address [address] [place] [address] Care Team Providers Care Assistant Hall Director Name Role Phone Ricardo Contreras MD Primary Care Provider + Jalil Marie MD Unavailable [phone] Barbie Jorgensen SUBSCRIPTION CLERK Unavailable [phone] Clara Holbrook SUBSCRIPTION CLERK Unavailable Encounter Details Date Type Department Care Team (Late st Contact Info) Description 04/09/2023 Telephone [facility] [address] [place] [address] Clara Holbrook APRN [address] [place] [address] Social History Tobacco Use Types [...] encounter Miscellaneous Notes * Telephone Encounter - Joan Stratton - 04/09/2023 12:54 PM EDT Left MessageCommunicated - Clara wanted patient r/s until after 04/25. I called an there was no answer, left her a message telling her not to come to appointment tomorrow and to call for new appt. documented in this encounter Plan of Treatment Not on file documented as of this encounter Visit Diagnoses Not on filedocumented in this encounter Care Teams Assistant Hall Director Relationship Specialty Start Date End Date Ricardo Contreras MD [address] [place], [place] [id number] PCP - General Jalil Marie MD [address] [place] [address] Consulting Physician Hematology 04/12/22 Barbie Jorgensen APRN [address] [place] [address] Nurse Practitioner Oncology 06/21/22 Clara Holbrook APRN [address] [place] [address] Nurse Practitioner Oncology 01/24/23 documented as of this encounter
--- OUTSIDE RECORDS SUMMARY | 2024-08-18 13:08 | XMS_ITS | Encounter Summary ---
Author Organization [facility] nter Address [address] [place], [place] [id number] [place] [address] Care Team Providers Care Orchard Manager Name Role Phone Ricardo Contreras MD Primary Care Provider + Jalil Marie MD Unavailable [phone] Barbie Jorgensen ATTENDANT CHILD ACTIVITY Unavailable [phone] Clara Holbrook ATTENDANT CHILD ACTIVITY Unavailable [phone] Encounter Details Date Type Department Care Team (Latest Contact Info) Description 04/10/2023 Travel Social History Tobacco Use Types Packs/Day [...] on filedocumented in this encounter Care Teams Orchard Manager Relationship Specialty Start Date End Date Ricardo Contreras MD [address] [place] [address] PCP - General Jalil Marie MD [address] [place] [address] Consulting Physician Hematology 04/12/22 Barbie Jorgensen APRN [address] [place] [address] Nurse Practitioner Oncology 06/21/22 Clara Holbrook APRN [address] [place] [address] Nurse Practitioner Oncology 01/24/23 documented as of this encounter
--- OUTSIDE RECORDS SUMMARY | 2024-08-18 13:08 | XMS_ITS | Encounter Summary ---
Author Organization [facility] nter Address [address] [place], [place] [address] [place] [address] Care Team Providers Care Sales Representative Malt Liquors Name Role Phone Ricardo Contreras MD Primary Care Provider + Jalil Marie MD Unavailable [phone] Barbie Jorgensen DESKTOP ADMINISTRATOR Unavailable [phone] Clara Holbrook DESKTOP ADMINISTRATOR Unavailable [phone] Encounter Details Date Type Department Care Team (Latest Contact Info) Description 01/24/2023 Travel Social History Tobacco Use Types Packs/Day [...] on filedocumented in this encounter Care Teams Sales Representative Malt Liquors Relationship Specialty Start Date End Date Ricardo Contreras MD [address] [place] [address] PCP - General Jalil Marie MD [address] [facility] [place] [address] Consulting Physician Hematology 04/12/22 Barbie Jorgensen APRN [address] [facility] [place] [address] Nurse Practitioner Oncology 06/21/22 Clara Holbrook APRN [address] [facility] [place] [address] Nurse Practitioner Oncology 01/24/23 documented as of this encounter
--- OUTSIDE RECORDS SUMMARY | 2024-08-18 13:08 | XMS_ITS | Encounter Summary ---
Author Organization [facility] nter Address [address] [place] [address] Care Team Providers Care Runner On Name Role Phone Ricardo Contreras MD Primary Care Provider + Jalil Marie MD Unavailable [phone] Barbie Jorgensen SERVICES MANAGER Unavailable [phone] Clara Holbrook SERVICES MANAGER Unavailable [phone] Reason for Referral * Consultation (Routine) - Closed Specialty Diagnoses / Procedures Referred By Frantz moreno Referred To Contact Gynecology Diagnoses Malignant neoplasm of upper-outer quadrant of right breast in female, estrogen receptor positive Procedures [place] OFFICE/OUTPATIENT [facility] 60-74 MINUTES Clara Holbrook APRN [address] [place] [address] Referral ID Status Reason Start Date Expiration Date V isits Requested Visits Authorized [id number] Closed Specialty Services Required 04/10/2023 04/09/2024 1 1 * Imaging (Routine) - Closed Specialty Diagnoses / Procedures Referred By Frantz moreno Referred To Contact Radiology Diagnoses Malignant neoplasm of upper-outer quadrant of right breast in female, estrogen receptor positive Procedures NM bone whole body Clara Holbrook APRN [address] [place] [address] [facility] [address] [place] [address] Phone: [phone] Fax: [phone] Referral ID Status Reason Start Date Expiration Date V isits Requested Visits Authorized [id number] Closed Specialty Services Required 04/17/2023 04/16/2024 2 2 * Imaging (Routine) - Closed Specialty Diagnoses / Procedures Referred By Contac t Referred To Contact Radiology Diagnoses Malignant neoplasm of upper-outer quadrant of right breast in female, estrogen receptor positive Procedures CT abdomen pelvis w IV contrast Clara Holbrook, SERVICES MANAGER [address] [place] [address] [facility] [address] [place] [address] Referral ID Status Reason Start Date Expiration Date V isits Requested Visits Authorized [id number] Closed Specialty Services Required 04/10/2023 06/09/2023 1 1 * Imaging (Routine) - Closed Specialty Diagnoses / Procedures [facility] Referred To Contact Radiology Diagnoses Malignant neoplasm of upper-outer quadrant of right breast in female, estrogen receptor positive Procedures CT chest w IV contrast Clara Holbrook, SERVICES MANAGER [address] [place] [address] [facility] [address] , [place] [address] Referral ID Status Reason Start Date Expiration Date V isits Requested Visits Authorized [id number] Closed Specialty Services Required 04/10/2023 06/09/2023 1 1 * Imaging (Routine) - Closed Specialty Diagnoses / Procedures Referred By Contac t Referred To Contact Radiology Diagnoses Malignant neoplasm of upper-outer quadrant of right breast in female, estrogen receptor positive Procedures BI MR breast bilateral with and without contrast Clara Holbrook APRN [address] [facility] [place] [address] [facility] Main Effort [address] [facility] [place] [address] Phone: [phone] Fax: [phone] Referral ID Status Reason Start Date Expiration Date V isits Requested Visits Authorized [id number] Closed Specialty Services Required 04/10/2023 06/09/2023 1 1 Reason for Visit * Reason Comments Breast Cancer Follow-up Encounter Details Date Type Department Care Team (Late st Contact Info) Description 04/10/2023 11:15 AM EDT Office Visit [facility] [address] [place] [address] Clara Holbrook APRN [address] [facility] [place] [address] Malignant neoplasm of upper-outer quadrant of right breast in female, estrogen receptor positive (Primary Dx); Anemia, unspecified type; Parotid cyst Social History Tobacco Use Types Packs/Day Years [...] Sign Reading Time Taken Comments Blood Pressure 114/72 04/10/2023 12:02 PM EDT Pulse 59 04/10/2023 12:02 PM EDT Temperature 36.7 ??C (98 ??F) 04/10/2023 12:02 PM EDT Respiratory Rate 18 04/10/2023 12:02 PM EDT Oxygen Saturation 98% 04/10/2023 12:02 PM EDT Inhaled Oxygen Concentration - - Weight 89.4 kg (197 lb) 04/10/2023 12:02 PM EDT Height - - Body Mass Index 33.81 01/31/2023 8:11 AM EDT documented in this encounter Progress Notes * Clara Holbrook, SERVICES MANAGER - 04/10/2023 11:15 AM EDT Patient ID: Catie Martinez is a 52 y.o. female. Referring Physician: Ricardo Contreras MD [address] [place] [address] Primary Care Provider: Ricardo Contreras MD Subjective [...] dimension 1.0 cm. Negative for lymphovascular invasion. [place] Grade II/III (2 +2+1). Negative for intraductal carcinoma. Negative for necrosis ?? 11/25/20: FROZEN SECTION DIAGNOSIS, 1. ??[place] Lymph Node #1, Excision (1FS1): -Negative for macrometastasis. 2. ??[place] Lymph Node #2, Excision (2FS1): -Negative for macrometastasis. DIAGNOSIS, 1. ??[place] Lymph Node #1, Excision (1FS1): -One lymph node is negative for malignancy. 2. ??[place] Lymph Node #2, Excision (2FS1): -One lymph node is negative for malignancy. 3. ??[place] Lymph Node #3, Excision: - One lymph [...] Benefit - <1%, 10.0 ER Positive, 9.0 NH Positive, 8.9 HER2 Negative ?? 09/16/20: US [...] post right mastectomy with reconstruction and tissue precision honing machine operator in place. 3. Other chronic findings as noted. Report Sign Date: 06/14/2022 10:48 AM, Electronically Signed By: Roverto Rucker MD 11/21/2021: Mammogram: benign 12/29/2021: CT neck: redemonstration of left parotid lesion in the region of marker which is decreased in size compared to prior now measuring 1.9 x 0.8 cm. Right level 2A lymph node is borderline enlarged however decreased in size compared to prior. ??06/14/2022: CT chest: small pulmonary nodules 08/17/2022: CT lumbar spine: degenerative changes ?? Interval History: Missed appt with Dr. Brewster due to having gastroenteritis. She has now noted palpable nodules over her right mastectomy site. C/o fatigue at times. Pap is due as well. ?? Review of Systems Constitutional: Positive for appetite change and fatigue. Respiratory: Positive for cough. Gastrointestinal: Positive for diarrhea. Musculoskeletal: Positive for back pain. Neurological: Positive for headaches and numbness. Hematological: Bruises/bleeds easily. Psychiatric/Behavioral: Positive for sleep disturbance. The patient is nervous/anxious. Objective BSA: 1.94 meters squared BP 114/72 (BP Location: Left arm, Patient Position: Sitting, BP Cuff Size: Adult) Pulse 59 Temp98 ??F (36.7 ??C) (Oral) Resp 18 Wt 197 lb (89.4 kg) SpO2 98% BMI 33.81 kg/m?? Physical Exam Constitutional: Appearance: Normal appearance. HENT: Head: Normocephalic. Eyes: Conjunctiva/sclera: Conjunctivae normal. Neck: Trachea: Trachea normal. Cardiovascular: Rate and Rhythm: Normal rate. Heart sounds: Normal heart sounds. Pulmonary: Effort: Pulmonary effort is normal. Breath sounds: Normal breath sounds. Chest: Comments: Left mastectomy with reconstruction Palpable nodules noted over implant Abdominal: General: Bowel sounds are normal. Skin: General: Skin is warm and dry. Neurological: Mental Status: She is alert. Psychiatric: Speech: Speech normal. ECOG Performance Status: 0 - Fully active, able to carry on all pre-disease performance without restriction Pain Scale: 0 Lab Results Component Value Date WBC 9.1 01/24/2023 HGB 11.5 01/24/2023 HCT 36.8 01/24/2023 PLT 181 01/24/2023 LDH 204 (H) 08/19/2020 CREATININE 1.60 (H) 01/24/2023 AST 17 01/24/2023 CEA 4.0 (H) 04/12/2022 Assessment/Plan Cancer Staging [...] margin, grade 2, ER positive at 100%, NH +100%, and HER-2 new negative on immunohistochemistry. [...] dose # 12 Jul 2023 -Refer to solar installation crew supervisor for pap -Dexa scan -Follow up after scans Orders: - Clinic Appointment Request CLARA HOLBROOK - BI MR breast bilateral with and without contrast; Future - CT chest w IV contrast; Future - CT abdomen pelvis w IV contrast; Future - NM bone whole body; Future - Creatinine, Serum; Future - anastrozole (Arimidex) 1 MG chemo tablet; Take 1 tablet (1 mg total) by mouth in the morning. - calcium carbonate-vitamin D (Calcium 600+D) 600-5 MG-MCG tablet; Take 2 tablets by mouth in the morning and at bedtime. - Ambulatory referral/appointment with Gynecology; Future 2. Anemia, unspecified type Assessment & Plan: Currently on oral iron bid Will recheck iron levels at next visit, if still deficient, will give parental 3. Parotid cyst Assessment & Plan: 12/2021 CT neck showed left parotid lesion and borderline lymph node enlargement She feels that this is enlarging [place] get CT neck and follow up in one month Treatment Details Treatment goal [No plan goal] Plan Name DENOSUMAB (PROLIA) Q6MON Status Active Start Date 01/24/2023 End Date Until discontinued Provider Brabie Jorgensen NP Chemotherapy denosumab (Prolia) injection 60 mg, 60 mg, Subcutaneous, Once, 1 of 1 cycle Administration: 60 mg (01/24/2023) documented in this encounter Miscellaneous Notes * Assessment & Plan Note - Clara Holbrook APRN - 04/10/2023 4:44 PM EDT Associated Problem(s): Parotid mass 12/2021 CT neck showed left parotid lesion and borderline lymph node enlargement She feels that this is enlarging Ed[place] get CT neck and follow up in one month * Assessment & Plan Note - Clara Holbrook APRN - 04/10/2023 4:43 PM EDT Associated Problem(s): Anemia Currently on oral iron bid Will recheck iron levels at next visit, if still deficient, will give parental * Assessment & Plan Note - Clara Holbrook APRN - 04/10/2023 4:36 PM EDT Associated Problem(s): Malignant neoplasm of upper-outer quadrant of right breast in female, estrogen receptor positive Perimenopausal white female who was found to have right breast cancer status post right mastectomy by Dr. Duarte on July 08, 2020 with pathology showing 15 mm IDC, negative margins with 0.5 cm the closest margin, grade 2, ER positive at 100%, NH +100%, and HER-2 new negative on immunohistochemistry. [...] dose # 12 Jul 2023 -Refer to solar installation crew supervisor for pap -Dexa scan -Follow up after scans * Patient Education - Ting Phillip - 04/10/2023 12:04 PM EDT Patient Education Table of Contents Breast Cancer, Female To view videos and all your education online visit, [email or web address] or scan this QR code with your [...] breastcancer. Follow these instructions at home: Take ughu-cde-kckdyua and prescription medicines only as told by [...] is important. Where to find more information [employer]: www.cancer.org National Cancer [place]: www.cancer.gov Contact a health care provider if: [...] 12/05/2006 Document Revised: 07/17/2022 Document Reviewed: 07/17/2022 Elsevier Patient Education ? 2022 [employer] documented in this encounter Plan of Treatment Scheduled Orders Name Type Priority Associated Diagnoses Orde r Schedule Creatinine, Serum Lab Routine Malignant neoplasm of upper-outer quadrant of right breast in female, estrogen receptor positive Expected: 04/10/2023 (Approximate), Expires: 04/10/2024 Scheduled Referrals Name Type Priority Associated Diagnoses Order Schedule Ambulatory referral/appointment with Gynecology Outpatient Referral Routine Malignant neoplasm of upper-outer quadrant of right breast in female, estrogen receptor positive Expected: 04/10/2023 (Approximate), Expires: 04/10/2024 documented as of this encounter Results * NM bone whole [...] Signed By: Vahe Boyd MD Clara Holbrook SERVICES MANAGER [facility] [place] PROCEDURES * BI MR breast bilateral with and without contrast (05/29/2023 9:08 AM EDT) Anatomical Region Laterality Modality Breast Bilateral Magnetic Resonan ce 05/29/2023 9:10 AM EDT Impressions 05/29/2023 12:29 PM EDT RIGHT BREAST: ??No evidence of malignancy. BI-RADS: ??2. ??Negative. LEFT BREAST: ??No evidence of malignancy. BI-RADS: ??2. ??Negative. The [employer] recommends annual screening breast MRI [...] adjusted dose of Omniscan and saline flush. [id number] reconstructions (maximal intensity projections), subtractions, andsagittal and [...] evidence of malignancy. BI-RADS: 2. Negative. The [place] [employer] recommends annual screening breast MRI inaddition to mammography for women with a lifetime risk of breast cancergreater than 20%. Patient's are encouraged to discuss their individualrisks of breast cancer with their referring health care Provider. Report Sign Date: 05/29/2023 12:29 PM, Electronically Signed By: Vahe Boyd MD Clara Holbrook APRN [facility] MRI PROCEDURES * CT abdomen pelvis w IV contrast [...] 05/11/2023 3:29 PM, Electronically Signed By: Sang Georeg MD Narrative 05/11/2023 3:29 PM EDT PROCEDURE: CT ABDOMEN [...] Signed By: Samir CAREY Clara Holbrook APRN [facility] CT PROCEDURES * CT chest w IV [...] Signed By: Samir CAREY Clara Holbrook APRN [facility] CT PROCEDURES documented in this encounter Visit Diagnoses Diagnosis Malignant neoplasm of upper-outer quadrant of right breast in female, estrogen receptor positive- Primary Anemia, unspecified type Parotid cyst Malignant neoplasm of upper-outer quadrant of right breast in female, estrogen receptor positive Malignant neoplasm of upper-outer quadrant of right breast in female, estrogen receptor positive documented in this encounter Care Teams Runner On Relationship Specialty Start Date End Date Ricardo Contreras MD [address] [place] [address] PCP - General Jalil Marie MD [address] [place] [address] Consulting Physician Hematology 04/12/22 Barbie Jorgensen APRN [address] [place] [address] Nurse Practitioner Oncology 06/21/22 Clara Holbrook APRN [address] [place] [address] Nurse Practitioner Oncology 01/24/23 documented as of this encounter
--- OUTSIDE RECORDS SUMMARY | 2024-08-18 13:08 | XMS_ITS | Encounter Summary ---
Author Organization [facility] nter Address [address] [place] [address] Care Team Providers Care Montessori Teacher Name Role Phone Ricardo Contreras MD Primary Care Provider + Jalil Marie MD Unavailable Barbie Jorgensen CHIEF CLERK SHELTER Unavailable [phone] Clara Holbrook CHIEF CLERK SHELTER Unavailable Encounter Details Date Type Department Care Team (Late st Contact Info) Description 04/25/2023 Orders Only [facility] [address] [place] [address] Clara Holbrook APRN [address] [place] [address] Social History Tobacco Use Types [...] on filedocumented in this encounter Care Teams Montessori Teacher Relationship Specialty Start Date End Date Ricardo Contreras MD [address] [place] [address] PCP - General Jalil Maire MD [address] [place] [address] Consulting Physician Hematology 04/12/22 Barbie Jorgensen APRN [address] [place] [address] Nurse Practitioner Oncology 06/21/22 Clara Holbrook APRN [address] [place] [address] Nurse Practitioner Oncology 01/24/23 documented as of this encounter
--- OUTSIDE RECORDS SUMMARY | 2024-08-18 13:08 | XMS_ITS | Encounter Summary ---
Author Organization [facility] nter Address [address] [place] [address] Care Team Providers Care Mobile Application Tester Name Role Phone Ricardo Contreras MD Primary Care Provider + Jalil Akins MD Unavailable [phone] Barbie Jorgensen BOAT PAINTER Unavailable [phone] Clara Hardy BOAT PAINTER Unavailable Reason for Referral * Imaging (Routine) - Closed Specialty Diagnoses / Procedures Referred By Frantz moreno Referred To Contact Radiology Diagnoses Parotid cyst Procedures CT soft tissue neck w IV contrast Clara Hardy APRN [address] [place] [address] [facility] [address] [place] [address] Referral ID Status Reason Start Date Expiration Date Visits Re quested Visits Authorized [id number] Closed 03/26/2023 05/25/2023 1 1 * Consultation (Routine) - Closed Specialty Diagnoses / Procedures Referred By Frantz moreno Referred To Contact General Surgery Diagnoses Diarrhea, unspecified type Procedures [place] OFFICE/OUTPATIENT [facility] MDM 60-74 MINUTES Clara Hardy APRN [address] [place] [address] Joe Brewster MD [address] [place] [address] Referral ID Status Reason Start Date Expiration Date V isits Requested Visits Authorized [id number] Closed Specialty Services Required 01/24/2023 01/24/2024 1 1 * Consultation (Routine) - Closed Specialty Diagnoses / Procedures Referred By Contac t Referred To Contact Gynecology Diagnoses 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, estrogen receptor positive Procedures TX OFFICE/OUTPATIENT [facility] MDM 60-74 MINUTES Clara Hardy BOAT PAINTER [address] [place] [address] Referral ID Status Reason Start Date Expiration Date V isits Requested Visits Authorized [id number] Closed Specialty Services Required 01/24/2023 01/24/2024 1 1 * Imaging (Routine) - Closed Specialty Diagnoses / Procedures Referred By Contac t Referred To Contact Radiology Diagnoses 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, estrogen receptor positive Procedures DEXA bone density axial skeleton Clara Hardy BOAT PAINTER [address] [place] [address] Referral ID Status Reason Start Date Expiration Date Visits Re quested Visits Authorized [id number] Closed 01/24/2023 01/24/2024 1 1 * Imaging (Routine) - Closed Specialty Diagnoses / Procedures Referred By Contac t Referred To Contact Radiology Diagnoses 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, estrogen receptor positive Procedures BI Diagnostic mammogram left Clara Hardy, BOAT PAINTER [address] [place] [address] Referral ID Status Reason Start Date Expiration Date Visits Re quested Visits Authorized [id number] Closed 01/31/2023 01/31/2024 1 1 * Imaging (Routine) - Closed Specialty Diagnoses / Procedures Referred By Frantz moreno Referred To Contact Radiology Diagnoses Elbow pain, left Procedures US venous UE left doppler Clara Hardy, BOAT PAINTER [address] [place] [address] Referral ID Status Reason Start Date Expiration Date Visits Re quested Visits Authorized [id number] Closed 01/24/2023 01/24/2024 1 1 Reason for Visit * Reason Comments Breast Cancer Encounter Details Date Type Department Care Team (Late st Contact Info) Description 01/24/2023 10:30 AM EDT Office Visit [facility] [address] 10[address] [place] [address] Clara Hardy, LONI [address] [place] [address] 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, estrogen receptor positive (Primary Dx); Elbow pain, left; Diarrhea, unspecified type; Parotid cyst Social History Tobacco [...] Sign Reading Time Taken Comments Blood Pressure 123/79 01/24/2023 10:51 AM EDT Pulse 79 01/24/2023 10:51 AM EDT Temperature 36.7 ??C (98.1 ??F) 01/24/2023 10:51 AM E DT Respiratory Rate 16 01/24/2023 10:51 AM EDT Oxygen Saturation 100% 01/24/2023 10:51 AM EDT Inhaled Oxygen Concentration - - Weight 95.8 kg (211 lb 1.6 oz) 01/24/2023 10:51 AM EDT Height - - Body Mass Index 36.24 12/12/2022 10:53 PM EDT documented in this encounter Progress Notes * Clara Hardy NP - 01/24/2023 10:30 AM EDT Patient ID: Catie Martinez is a 52 y.o. female. Referring Physician: Barbie Jorgensen NP [address] [place] [address] Primary Care Provider: Ricardo Contreras MD Subjective [...] dimension 1.0 cm. Negative for lymphovascular invasion. David Grade II/III (2 +2+1). Negative for intraductal carcinoma. Negative for necrosis ?? 08/04/20: FROZEN SECTION DIAGNOSIS, 1. ??[place] Lymph Node #1, Excision (1FS1): -Negative for macrometastasis. 2. ??[place] Lymph Node #2, Excision (2FS1): -Negative for macrometastasis. DIAGNOSIS, 1. ??[place] Lymph Node #1, Excision (1FS1): -One lymph node is negative for malignancy. 2. ??[place] Lymph Node #2, Excision (2FS1): -One lymph node is negative for malignancy. 3. ??[place] Lymph Node #3, Excision: - One lymph [...] Benefit - <1%, 10.0 ER Positive, 9.0 TX Positive, 8.9 HER2 Negative ?? 09/16/20: US [...] post right mastectomy with reconstruction and tissue survey statistician in place. 3. Other chronic findings as [...] nodules 08/17/2022: CT lumbar spine: degenerative changes Interval History: Feels that the lump in her neck [...] Dr. Forrest. Pap is due as well. Review of Systems Constitutional: Positive for fatigue. Gastrointestinal: Positive for diarrhea. Musculoskeletal: Left arm pain Neurological: Positive for extremity weakness and headaches. All other systems reviewed and are negative. Objective BSA: 2 meters squared BP 123/79 (BP Location: Left arm, Patient Position: Sitting, BP Cuff Size: Large adult) Pulse 79 Temp 98.1 ??F (36.7 ??C) (Oral) Resp 16 Wt 211 lb 1.6 oz (95.8 kg) SpO2 100% BMI 36.24 kg/m?? Physical Exam Constitutional: Appearance: Normal appearance. [...] for the patient. 1. 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 Duarte on July 08, 2020 with pathology showing 15 mm IDC, negative margins with 0.5 cm the closest margin, grade 2, ER positive at 100%, TX +100%, and HER-2 new negative on immunohistochemistry. [...] she will receive #1 today -Refer to mine captain for pap -Refer to Dr. Brewster for colonoscopy (needed for screening as well as new onset diarrhea) -Mammogram if ok with Dr. Forrest -Dexa scan -Labs today -Follow up in one month after CT neck (see below) -CT for lung cancer screening due 06/2023 Orders: - Clinic Appointment Request Follow up; JALIL AKINS - CBC auto differential - Comprehensive metabolic panel - Vitamin D 25 hydroxy - BI Diagnostic mammogram left; Future - DEXA bone density axial skeleton; Future - Ambulatory referral/appointment with Gynecology; Future - Clinic Appointment Request CLARA HARDY; Future 2. Elbow pain, left Assessment & Plan: U/S to r/o DVT given swelling and recent IV Xray of elbow If no improvement go to PCP Orders: - US venous UE left doppler; Future - XR elbow 1 or 2 views left; Future 3. Diarrhea, unspecified type Assessment & Plan: Increase fluid intake -Gastrointestinal panel ordered Orders: - Gastrointestinal panel; Future - Ambulatory referral to General Surgery; Future 4. Parotid cyst Assessment & Plan: New pt to me today 12/2021 CT neck showed left parotid lesion and borderline lymph node enlargement She feels that this is enlarging Edinson get CT neck and follow up in one month Orders: - CT soft tissue neck w IV contrast; Future Treatment Details Treatment goal [No plan goal] Plan Name DENOSUMAB (PROLIA) Q6MON Status Active Start Date 01/24/2023 End Date Until discontinued Provider Barbie Jorgensen NP Chemotherapy denosumab (Prolia) injection 60 mg, 60 mg, Subcutaneous, Once, 1 of 1 cycle Administration: 60 mg (01/24/2023) documented in this encounter Miscellaneous Notes * Assessment & Plan Note - Clara Hardy NP - 01/24/2023 4:48 PM EDTAssociated Problem(s): Parotid mass New pt to me today 12/2021 CT neck showed left parotid lesion and borderline lymph node enlargement She feels that this is enlarging Edinson get CT neck and follow up in one month * Assessment & Plan Note - Clara Hardy NP - 01/24/2023 4:47 PM EDTAssociated Problem(s): Diarrhea Increase fluid intake -Gastrointestinal panel ordered * Assessment & Plan Note - Clara Hardy NP - 01/24/2023 4:46 PM EDTAssociated Problem(s): Elbow pain, left U/S to r/o DVT given swelling and recent IV Xray of elbow If no improvement go to PCP * Patient Education - Clara Hardy NP - 01/24/2023 10:54 AM EDT Patient Education Table of Contents Breast Cancer, Female To view videos and all your education online visit, [email or web address] or scan this QR code with your [...] breastcancer. Follow these instructions at home: Take fjjt-ytr-ztatemh and prescription medicines only as told by [...] is important. Where to find more information [employer]: www.cancer.org National Cancer [place]: www.cancer.gov Contact a health care provider if: [...] with your health care provider. Document Released: 12/05/2006Document Revised: 2Document Reviewed: 07/17/2022 Elsevier Patient Education ? 2022 [employer] * Assessment & Plan Note - Yissel Brandon - 01/24/2023 10:43 AM EDTAssociated Problem(s): Malignant neoplasm of upper-outer quadrant of right breast in female, estrogen receptor positive Perimenopausal white female who was found to have right breast cancer status post right mastectomy by Dr. Duarte on July 08, 2020 with pathology showing 15 mm IDC, negative margins with 0.5 cm the closest margin, grade 2, ER positive at 100%, TX +100%, and HER-2 new negative on immunohistochemistry. [...] she will receive #1 today -Refer to mine captain for pap -Refer to Dr. Brewster for colonoscopy (needed for screening as well as new onset diarrhea) -Mammogram if ok with Dr. 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, estrogen receptor positive Expected: 01/24/2023 (Approximate), Expires: 01/25/2024 Ambulatory referral to General Surgery Outpatient Referral Routine Diarrhea, unspecified type Expected: 01/24/2023 (Approximate), Expires: 01/25/2024 documented as of this encounter Procedures Procedure Name Priority Date/Time Associated Diagnosis Comments CBC WITH AUTO DIFFERENTIAL Routine 01/24/2023 11:43 AM EDT 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 Again seen is a left parotid mass measuring up to 1.9 cm grossly unchanged. 2. Cervical lymphadenopathy similar to prior exam. Report Sign Date: 05/11/2023 3:29 PM, Electronically Signed By: Sang George MD [facility] 05/11/2023 3:29 PM EDT PROCEDURE: CT SOFT TISSUE NECK W IV CONTRAST: 05/11/2023 CLINICAL INFORMATION: left paraotid lesion, enlarging Comparison: 12/29/2021. There are degenerative changes and fusion changes in the spine. The tract was grossly patent. Appears intact. Submandibular glands appear intact. There is cervical lymphadenopathy with largest lymph nodes in the right cervical spine region measuring up to 1.2 cm similar to prior exam. There is an enhancing mass in the left parotid gland posteriorly measuring 1.9 cm similar prior exam. Procedure Note Sang George MD - 05/11/2023 PROCEDURE: CT SOFT TISSUE NECK W IV CONTRAST: 05/11/2023 CLINICAL INFORMATION: left paraotid lesion, enlarging Comparison: 12/29/2021. There are degenerative changes and fusion changes in the spine. The tract was grossly patent. Appears intact. Submandibular glands appear intact. There is cervical lymphadenopathy with largest lymph nodes in the rightcervical spine region measuring up to 1.2 cm similar to prior exam. There is an enhancing mass in the left parotid gland posteriorly measuring1.9 cm similar prior exam. IMPRESSION: 1. Again seen is a left parotid mass measuring up to 1.9 cm grosslyunchanged. 2. Cervical lymphadenopathy similar to prior exam. Report Sign Date: 05/11/2023 3:29 PM, Electronically Signed By: Samir CAREY Clara Hardy APRN [facility] CT PROCEDURES * BI Diagnostic mammogram left (04/25/2023 8:20 [...] desiccation, or area of architectural distortion. Clara Hardy APRN [facility] BI PROCEDURES * XR elbow 1 or 2 views [...] PM, Electronically Signed By: Anne CAREY Clara Hardy APRN IMG XR PROCEDURES * US venous UE left doppler (01/24/2023 1:05 PM EDT) Anatomical Region Laterality Modality Upper Extremities Ultrasound 01/24/2023 1:06 PM EDT Impressions 01/24/2023 1:19 PM EDT No evidence of deep venous thrombosis involving the left upper extremity. Report Sign Date: 01/24/2023 1:19 PM, Electronically Signed By: Kiran Herman MD Narrative 01/24/2023 1:19 PM EDT PROCEDURE: US VENOUS [...] PM, Electronically Signed By: Anne CAREY Clara Hardy APRN IMG US PROCEDURES * Vitamin D 25 hydroxy (01/24/2023 11:43 AM EDT) Pathologist [facility] Vitamin D, Total 49.4 30.0 - 100.0 ng/mL 01/24/2023 3:02 PM EDT [facility] Blood Venous blood specimen / Unknown Venipuncture / Unknown 01/24/2023 11:43 AM EDT 01/24/2023 12:12 PM EDT Clara Hardy APRN LAB BLOOD ORDERABLES [facility] [address] [place] [address], * (ABNORMAL) Comprehensive metabolic panel (01/24/2023 11:43 AM EDT) [facility] Sodium 136 133 - 144 mmol/L 01/24/2023 12:40 PM [facility] Potassium 5.2 3.6 - 5.2 mmol/L 01/24/2023 12:40 PM [facility] Comment:Specimen slightly he molyzed. Results may be falsely elevated. Chloride 112(H) 98 - 107 mmol/L 01/24/2023 12:40 PM EDT [facility] CO2 18(L) 21 - 32 mmol/L 01/24/2023 12:40 [facility] Anion Gap 6 5 - 15 mmol/L 01/24/2023 12:40 PM [facility] BUN 17 7 - 18 mg/dL 01/24/2023 12:40 PM [facility] Creatinine 1.60(H) 0.55 - 1.02 mg/dL 01/24/2023 12:40 PM [facility] BUN/Creatinine Ratio 10.63 10.00 - 20.00 ratio 01/24/2023 12:40 PM [facility] Glucose 186(H) 70 - 110 mg/dL 01/24/2023 12:40 PM [facility] Calcium 8.8 8.5 - 10.1 mg/dL 01/24/2023 12:40 PM [facility] AST 17 15 - 37 U/L 01/24/2023 12:40 PM [facility] Comment:Specimen slightly he molyzed. Results may be falsely elevated. ALT (SGPT) 16 13 - 56 U/L 01/24/2023 12:40 PM [facility] Alkaline Phosphatase 74 45 - 117 U/L 01/24/2023 12:40 PM [facility] Total Protein 6.7 6.4 - 8.4 g/dL 01/24/2023 12:40 PM [facility] Albumin 3.0(L) 3.4 - 5.0 g/dL 01/24/2023 12:40 PM [facility] Globulin, Total 3.7 2.4 - 4.8 g/dL 01/24/2023 12:40 PM [facility] A/G Ratio <1.0 0.6 - 1.6 01/24/2023 12:40 PM [facility] Total Bilirubin 0.2 0.0 - 1.0 mg/dL 01/24/2023 12:40 PM [facility] eGFR 37.3(L) >60.0 - 200.0 mL/min/1.7 3m*2 01/24/2023 12:40 PM [facility] Blood Venous blood specimen / Unknown Venipuncture / Unknown 01/24/2023 11:43 AM EDT 01/24/2023 12:12 PM EDT Clara Hardy APRN LAB BLOOD ORDERABLES [facility] [address] [place] [address], * (ABNORMAL) CBC auto differential (01/24/2023 11:43 AM EDT) Auto WBC 9.1 3.0 - 11.3 10*3/uL LAB HEMATOLOGY METHOD 01/24/2023 12:24 PM [facility] RBC 4.28 3.45 - 5.40 10*6/uL LAB HEMATOLOGY METHOD 01/24/2023 12:24 PM [facility] Hemoglobin 11.5 10.0 - 16.0 g/dL LAB HEMATOLOGY METHOD 01/24/2023 12:24 PM [facility] Hematocrit 36.8 29.9 - 45.5 % LAB HEMATOLOGY METHOD 01/24/2023 12:24 PM [facility] MCV 86.0 78.2 - 101.8 fL LAB HEMATOLOGY METHOD 01/24/2023 12:24 PM [facility] MCH 26.9 26.4 - 33.3 pg LAB HEMATOLOGY METHOD 01/24/2023 12:24 PM [facility] MCHC 31.2(L) 32.5 - 35.3 g/dL LAB HEMATOLOGY METHOD 01/24/2023 12:24 PM [facility] RDW 13.6 10.1 - 16.2 % LAB HEMATOLOGY METHOD 01/24/2023 12:24 PM [facility] MPV 8.7 6.4 - 10.4 fL LAB HEMATOLOGY METHOD 01/24/2023 12:24 PM [facility] Neutrophils % 55 43 - 83 % LAB HEMATOLOGY METHOD 01/24/2023 12:24 PM [facility] Lymphocytes % 36 10 - 42 % LAB HEMATOLOGY METHOD 01/24/2023 12:24 PM [facility] Monocytes % 6 1 - 14 % LAB HEMATOLOGY METHOD 01/24/2023 12:24 PM [facility] Eosinophils % 3 0 - 11 % LAB HEMATOLOGY METHOD 01/24/2023 12:24 PM [facility] Basophils % 1 0 - 2 % LAB HEMATOLOGY METHOD 01/24/2023 12:24 PM [facility] Neutrophils Absolute 5.00 3.40 - 7.00 10*3/uL LAB HEMATOLOGY METHOD 01/24/2023 12:24 PM EDT [facility] Lymphocytes Absolute 3.20 0.40 - 3.90 10*3/uL LAB HEMATOLOGY METHOD 01/24/2023 12:24 PM EDT [facility] Monocytes Absolute 0.50 0.20 - 0.60 10*3/uL LAB HEMATOLOGY METHOD 01/24/2023 12:24 PM EDT [facility] Eosinophils Absolute 0.20 0.00 - 0.90 10*3/uL LAB HEMATOLOGY METHOD 01/24/2023 12:24 PM EDT [facility] Basophils Absolute 0.10 0.00 - 0.20 10*3/uL LAB HEMATOLOGY METHOD 01/24/2023 12:24 PM EDT [facility] Platelets 181 122 - 454 10*3/uL LAB HEMATOLOGY METHOD 01/24/2023 12:24 PM EDT [facility] Blood Venous blood specimen / Unknown Venipuncture / Unknown 01/24/2023 11:43 AM EDT 01/24/2023 12:11 PM EDT Clara Hardy APRN LAB BLOOD ORDERABLES Performing Organization Address City/State/[facility] Co de Phone Number [facility] [address] [place] [address], documented in this encounter Visit Diagnoses Diagnosis 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, estrogen receptor positive- Primary Elbow pain, left Pain in joint, upper arm Diarrhea, unspecified type Parotid cyst Elbow pain, left Pain in joint, upper arm Elbow pain, left Pain in joint, upper arm 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 [place] [address] Nurse Practitioner Oncology 01/24/23 documented as of this encounter
--- OUTSIDE RECORDS SUMMARY | 2024-08-18 13:08 | XMS_ITS | Encounter Summary ---
Author Organization [facility] nter Address [address] [place], [place] [address] [place] [address] Care Team Providers Care Edger Technician Name Role Phone Ricardo Contreras MD Primary Care Provider + Jalil Marie MD Unavailable [phone] Barbie Jorgensen FINE ARTIST Unavailable [phone] Clara Holbrook FINE ARTIST Unavailable [phone] Encounter Details Date Type Department Care Team (Latest Contact Info) Description 04/25/2023 Travel Social History Tobacco Use Types Packs/Day [...] on filedocumented in this encounter Care Teams Edger Technician Relationship Specialty Start Date End Date Ricardo Contreras MD [address] [place] [address] PCP - General Jalil Marie MD [address] [place] [address] Consulting Physician Hematology 04/12/22 Barbie Jorgensen APRN [address] [place] [address] Nurse Practitioner Oncology 06/21/22 Clara Holbrook APRN [address] [place] [address] Nurse Practitioner Oncology 01/24/23 documented as of this encounter
--- OUTSIDE RECORDS SUMMARY | 2024-08-18 13:09 | XMS_ITS | Encounter Summary ---
Author Organization [facility] nter Address [address] [place], [place] [address] [place] [address] Care Team Providers Care Shank Rander Name Role Phone Ricardo Contreras MD Primary Care Provider + Jalil Marie MD Unavailable [phone] Barbie Jorgensen APRN Unavailable [phone] Encounter Details Date Type Department Care Team (Latest Contact Info) Description 09/29/2022 Travel Social History Tobacco Use Types Packs/Day [...] suspected to have Coronavirus/COVID-19? No / Unsure 09/29/2022 8:59 AM EST documented as of this encounter Plan of Treatment Not on file documented as of this encounter Visit Diagnoses Not on filedocumented in this encounter Care Teams Shank Rander Relationship Specialty Start Date End Date Ricardo Contreras MD [address] [place] [address] PCP - General Jalil Marie MD [address] [place] [address] Consulting Physician Hematology 04/12/22 Barbie Jorgensen APRN [address] [place] [address] Nurse Practitioner Oncology 06/21/22 documented as of this encounter
--- OUTSIDE RECORDS SUMMARY | 2024-08-18 13:09 | XMS_ITS | Encounter Summary ---
Author Organization [facility] nter Address [address] [place] [address] Care Team Providers Care Animal Scientist Name Role Phone Ricardo Contreras MD Primary Care Provider + Jalil Marie MD Unavailable [phone] Barbie Jorgensen APRN Unavailable [phone] Encounter Details Date Type Department Care Team (Late st Contact Info) Description 10/04/2022 Telephone [facility] [address] [place] [address] Barbie Jorgensen APRN [address] [place] [address] Social History Tobacco Use Types [...] suspected to have Coronavirus/COVID-19? No / Unsure 10/04/2022 8:31 AM EST documented as of this encounter Miscellaneous Notes * Telephone Encounter - Daria Thomas - 10/04/2022 9:06 AM EST Catie called to r/s her ernsetine and is aware of new date and time documented in this encounter Plan of Treatment Not on file documented as of this encounter Visit Diagnoses Not on filedocumented in this encounter Care Teams Animal Scientist Relationship Specialty Start Date End Date Ricardo Contreras MD [address] [place] [address] PCP - General Jalil Marie MD [address] [place] [address] Consulting Physician Hematology 04/12/22 Barbie Jorgensen APRN [address] [place] [address] Nurse Practitioner Oncology 06/21/22 documented as of this encounter
--- OUTSIDE RECORDS SUMMARY | 2024-08-18 13:09 | XMS_ITS | Encounter Summary ---
Author Organization [facility] nter Address [address] [place], [place] [id number] [place] [address] Care Team Providers Care Cryptological Technician Name Role Phone Ricardo Contreras MD Primary Care Provider + Jalil Marie MD Unavailable [phone] Barbie Jorgensen APRN Unavailable [phone] Encounter Details Date Type Department Care Team (Latest Contact Info) Description 10/18/2022 Travel Social History Tobacco Use Types Packs/Day [...] suspected to have Coronavirus/COVID-19? No / Unsure 10/18/2022 10:48 AM EST documented as of this encounter Plan of Treatment Not on file documented as of this encounter Visit Diagnoses Not on filedocumented in this encounter Care Teams Cryptological Technician Relationship Specialty Start Date End Date Ricardo Contreras MD [address] [place] [address] PCP - General Jalil Marie MD [address] [place] [address] Consulting Physician Hematology 04/12/22 Barbie Jorgensen APRN [address] [place] [address] Nurse Practitioner Oncology 06/21/22 documented as of this encounter
--- OUTSIDE RECORDS SUMMARY | 2024-08-18 13:09 | XMS_ITS | Encounter Summary ---
Author Organization [facility] nter Address [address] [place] [address] Care Team Providers Care Net Architect Name Role Phone iRcardo Contreras MD Primary Care Provider + Jalil Marie MD Unavailable [phone] Barbie Jorgensen [employer]CH[employer]ICAL [employer]INEER[employer] Unavailable [phone] Clara Holbrook MECH[employer]ICAL ENGINEER[employer] Unavailable Reason for Visit * Reason Comments Med Refill Encounter Details Date Type Department Care Team (Late st Contact Info) Description 10/12/2022 Refill [facility] [address] [place] [address] Gregory Forrest MD [address] [place] [phone] Social History Tobacco Use Types Packs/Day [...] suspected to have Coronavirus/COVID-19? No / Unsure 10/11/2022 8:16 AM EST documented as of this encounter Miscellaneous Notes * Telephone Encounter - Gregory Forrest MD - 10/13/2022 9:16 AM EST Approving, but needs appt for additional refills. documented in this encounter Plan of Treatment Not on file documented as of this encounter Visit Diagnoses Not on filedocumented in this encounter Care Teams Net Architect Relationship Specialty Start Date End Date Ricardo Contreras MD [address] [place], [place] [id number] PCP - General Jalil Marie MD [address] [place] [address] Consulting Physician Hematology 04/12/22 Barbie Jorgensen APRN [address] [place] [address] Nurse Practitioner Oncology 06/21/22 Clara Holbrook APRN [address] [place] [address] Nurse Practitioner Oncology 01/24/23 documented as of this encounter
--- OUTSIDE RECORDS SUMMARY | 2024-08-18 13:09 | XMS_ITS | Encounter Summary ---
Author Organization [facility] nter Address [address] [place] [address] Care Team Providers Care Clinical Cytopathologist Name Role Phone Ricardo Contreras MD Primary Care Provider + Jalil Marie MD Unavailable [phone] Barbie Jorgensen APRN Unavailable [phone] Encounter Details Date Type Department Care Team (Latest Contact Info) Description 10/25/2022 10:30 AM EST Office Visit [facility] [address] [place] [phone] Gregory Forrest MD [address] [place] [phone] Acquired absence of breast and absent nipple, right (Primary Dx); Breast asymmetry between [place] breast and reconstructed breast Social History Tobacco Use Types Packs/Day Years [...] suspected to have Coronavirus/COVID-19? No / Unsure 10/25/2022 10:17 AM EST documented as of this encounter Progress Notes * Gregory Forrest MD - 10/25/2022 10:30 AM EST Subjective : Patient ID: Catie Martinez is a 51 y.o. female. History of Present Illness: S/P exchange rt TE for saline implant, left breast augm for symmetry with saline implant.?? Objective : Physical Exam Constitutional She appears well-developed and well-nourished. Eyes System normal. Pulmonary/Chest Effort normal. Skin Skin is warm. Psychiatric She has a normal mood and affect. Her behavior is normal. Rt??breast incision healed well.??Sutures present. No drainage. Assessment/Plan : 1. Acquired absence of breast and absent nipple, right 2. Breast asymmetry between [place] breast and reconstructed breast Rt breast sutures removed. Silvadene BID. F/up 2 w. documented in this encounter Plan of Treatment Not on file documented as of this encounter Visit Diagnoses Diagnosis Acquired absence of breast and absent nipple, right- Primary Breast asymmetry between [place] breast and reconstructed breast Disproportion of reconstructed breast documented in this encounter Care Teams Clinical Cytopathologist Relationship Specialty Start Date End Date Ricardo Contreras MD [address] [place], [place] [id number] PCP - General Jalil Marie MD [address] [place] [address] Consulting Physician Hematology 04/12/22 Barbie Jorgensen APRN [address] [place] [address] Nurse Practitioner Oncology 06/21/22 documented as of this encounter
--- OUTSIDE RECORDS SUMMARY | 2024-08-18 13:09 | XMS_ITS | Encounter Summary ---
Author Organization [facility] nter Address [address] [place] [address] Care Team Providers Care Molecular Geneticist Name Role Phone Ricardo Contreras MD Primary Care Provider + Jalil Marie MD Unavailable [phone] Barbie Jorgensen APRN Unavailable [phone] Encounter Details Date Type Department Care Team (Latest Contact Info) Description 09/25/2022 10:45 AM EST Office Visit [facility] [address] [place] [phone] Gregory Forrest MD [address] [place] [phone] Acquired absence of breast and absent nipple, right (Primary Dx); Breast asymmetry between [place] breast and reconstructed breast Social History Tobacco [...] suspected to have Coronavirus/COVID-19? No / Unsure 09/25/2022 9:08 AM EST documented as of this encounter Progress Notes * Gregory Forrest MD - 09/25/2022 10:45 AM EST Subjective : Patient ID: Catie Martinez is a 51 y.o. female. History of Present Illness: S/P exchange rt TE for saline implant, left breast augm for symmetry with saline implant. Pt noticed drainage from rt breast incision yesterday. Objective : Physical Exam Constitutional She appears well-developed and well-nourished. Eyes System normal. Pulmonary/Chest Effort normal. Psychiatric Her behavior is normal. left breast incision healing well. Rt breast medial end of incision with 0.5 cm superficial opening, small clear drainage. Assessment/Plan : 1. Acquired absence of breast and absent nipple, right 2. Breast asymmetry between [place] breast and reconstructed breast All Tx options,risks discusssed. Sterile technique. 2ml Lido 1% locally. 5mm medial skin opening closed with interrupted 4-0 Ethilon sutures. Bacitracin oint, gauze. Pt tolerated procedure well. Bactrim DS, Bactroban. F/up Sunday. documented in this encounter Plan of Treatment Not on file documented as of this encounter Visit Diagnoses Diagnosis Acquired absence of breast and absent nipple, right- Primary Breast asymmetry between [place] breast and reconstructed breast Disproportion of reconstructed breast documented in this encounter Care Teams Molecular Geneticist Relationship Specialty Start Date End Date Ricardo Contreras MD [address] [place] [address] PCP - General Jalil Marie MD [address] [place] [phone] Consulting Physician Hematology 04/12/22 Barbie Jorgensen APRN [address] [place] [phone] Nurse Practitioner Oncology 06/21/22 documented as of this encounter
--- OUTSIDE RECORDS SUMMARY | 2024-08-18 13:09 | XMS_ITS | Encounter Summary ---
Author Organization [facility] nter Address [address] [place], [place] [id number] [place] [address] Care Team Providers Care Spring Winder Name Role Phone Ricardo Contreras MD Primary Care Provider + Jalil Marie MD Unavailable [phone] Barbie Jorgensen APRN Unavailable [phone] Encounter Details Date Type Department Care Team (Latest Contact Info) Description 09/25/2022 Travel Social History Tobacco Use Types Packs/Day [...] on filedocumented in this encounter Care Teams [place]inder Relationship Specialty Start Date End Date Ricardo Contreras MD [address] [place] [address] PCP - General Jalil Marie MD [address] [place] [address] Consulting Physician Hematology 04/12/22 Barbie Jorgensen APRN [address] [place] [address] Nurse Practitioner Oncology 06/21/22 documented as of this encounter
--- OUTSIDE RECORDS SUMMARY | 2024-08-18 13:09 | XMS_ITS | Encounter Summary ---
Author Organization [facility] nter Address [address] [place] [address] Care Team Providers Care Plywood Stock Grader Name Role Phone Ricardo Contreras MD Primary Care Provider + Jalil Marie MD Unavailable [phone] Barbie Jorgensen APRN Unavailable [phone] Encounter Details Date Type Department Care Team (Late st Contact Info) Description 09/29/2022 9:15 AM EST Office Visit [facility] [address] [place] [phone] Gregory Forrest MD [address] [place] [phone] Acquired absence of breast and absent nipple, right (Primary Dx) Social History Tobacco Use Types [...] Progress Notes * Gregory Forrest MD - 09/29/2022 9:15 AM EST Subjective : Patient ID: Catie [...] and affect. Her behavior is normal. Left breast incision healing well. Sutures present, no erythema. Small drainage. Assessment/Plan : 1. Acquired absence of breast and absent nipple, right On Bactrim DS, Batroban BID, gauze. Weekly f/up. documented in this encounter Plan of Treatment Not on file documented as of this encounter Visit Diagnoses Diagnosis Acquired absence of breast and absent nipple, right- Primary documented in this encounter Care Teams Plywood Stock Grader Relationship Specialty Start Date End Date Ricardo Contreras MD [address] [place] [address] PCP - General Jalil Marie MD [address] [place] [phone] Consulting Physician Hematology 04/12/22 Barbie Jorgensen APRN [address] [place] [address] Nurse Practitioner Oncology 06/21/22 documented as of this encounter
--- OUTSIDE RECORDS SUMMARY | 2024-08-18 13:09 | XMS_ITS | Encounter Summary ---
Author Organization [facility] nter Address [address] [place] [address] Care Team Providers Care Shipping Associate Name Role Phone Ricardo Contreras MD Primary Care Provider + Jalil Marie MD Unavailable [phone] Barbie Jorgensen APRN Unavailable [phone] Reason for Visit * Auth/Cert (Routine) Specialty Diagnoses / Procedures Referred By Contcurly t Referred To Contact Diagnoses Acquired absence of breast and absent nipple, right Breast asymmetry between pilot point breast and reconstructed breast breast reconstruction Procedures CO REPLACEMENT TISSUE LIFE SCIENCES DIRECTOR W/PERMANENT IMPLANT CO REVISION ANDRES-IMPLANT CAPSULE BREAST CO BREAST AUGMENTATION WITH IMPLANT TISSUE LIFE SCIENCES DIRECTOR REMOVAL BREAST CAPSULOTOMY MAMMOPLASTY, AUGMENTATION Gregory Forrest MD [address] [facility] [place] [address] [facility] [address] [place] [address] Referral ID Status Reason Start Date Expiration Date Visits Re quested Visits Authorized [id number] 1 1 Encounter Details Date Type Department Care Team (Late st Contact Info) Description 09/14/2022 10:51 AM EST Anesthesia Event [facility] [address] [place] [address] Jaya Tyson DO [address] [facility] [place] [address] Adi De Luna MD [address] [place] [address] Anesthesia Record Procedure Summary Procedure Name Responsible Anesthesiologist Anesthesia Start Time Anesthesia Stop Time RIGHT TISSUE LIFE SCIENCES DIRECTOR EXCHANGE FOR SALINE BREAST IMPLANT, RIGHT POCKET MODIFICATION WITH CAPSULORRAPHY AND CAPSULOTOMY (Right: Breast) Jaya Tyson, 09/14/22 1051 09/14/22 1440 Events Date Time Event Comment 09/14/2022 0958 1051 An Start 1056 An Start Data 1056 In Room 1101 An Induction The patient was reevaluated immediately before moderate or deep sedation use and before anesthesia induction. 1103 An Intubation 1104 Anesthesia Ready 1144 Proc Start 1147 Attending Handoff 1429 An Extubation 1434 an stop data 1435 Proc Fin 1437 Handoff to Receiving I compl eted my handoff to the receiving clinician during which we: 1. Identified the patient 2. Identified the responsible provider 3. Reviewed the pertinent medical history 4. Discussed the surgical course 5. Reviewed intra-op anesthesia management and issues during anesthesia 6. Set expectations for post-procedure period 7. Allowed opportunity for questions and acknowledgement of understanding. 1440 An Stop 1441 Out of Room Meds Name Total midazolam 1 mg/mL 2 mg fentaNYL (SUBLIMAZE) injection 200 mcg propofol 10 mg/mL 200 mg rocuronium 100 mg phenylephrine (Vazculep) 25, 000 mcg in dextrose 5 % 250 mL (100 mcg/mL) infusion 4,800 mcg phenylephrine 100 mcg/mL syringe 800 mcg lidocaine 2% prefilled syringe 125 mg clindamycin 900 mg in sodium chloride 0. 9 % 50 mL IVPB 900 mg ropivacaine (Naropin) 0.5 % Perineural 3 0 mL ceFAZolin (Ancef) injection 2 g 2 g tranexamic acid (Cyklokapron) injection 1,000 mg acetaminophen (Ofirmev) injection 1,000 mg sugammadex 200 mg/2mL 200 mg LR 1,500 mL * Agents Name Sevoflurane Inspired Sevoflurane N2O Inspired N2O * Blood No blood administrations on file. Lines, Drains, and Airways Type Details Placement Removal Wound 04/13/22; 1101; Inci belle; Breast; Bilateral; right breast- prevena, tegaderm, bactroban, clau drainx2, left breast- prevena tegaderm, surgical breast and abd pads used.; 09/14/22; 1456 04/13/22 1101 by Joan Cool RN 09/14/22 1456 by Dinorah Gtz RN Wound 09/14/22; Incision; Breast; Bilateral; TELFA, TEGADERM, EXOFIN, SURGICAL BRA, ABD PADS; 12/12/22 09/14/22 0000 by Joan Cool RN 12/12/22 0000 by Asia Menezes RN Peripheral IV Placement Date: 01/30; Placement Time: 0942; Catheter Size: 18 G; Orientation: Left, Posterior; Location: Hand; Site Prep: Chlorhexidine ; Local Anesth: Injectable; Technique: Anatomical landmarks; Inserted by: darnell pace-bsn.; Insertion Attempts: 1; Difficult Venous Access? No; Patient Tolerance: Tolerated well; Removal Date: 09/14/22; Removal Time: 1528 09/14/22 0942 by Darrius Coker RN 09/14/22 1528 by Dinorah Gtz RN documented in this encounter Social History Tobacco [...] suspected to have Coronavirus/COVID-19? No / Unsure 09/14/2022 9:21 AM EST documented as of this encounter OR Notes * Anesthesia Postprocedure Evaluation - Jaya Tyson DO - 09/18/2022 12:58 PM EST Patient: Catie Martinez Procedure Summary Date: 09/14/22 Room / Location: [facility] Operating Room Anesthesia Start: 1051 Anesthesia Stop: 1440 Procedures: RIGHT TISSUE LIFE SCIENCES DIRECTOR EXCHANGE FOR SALINE BREAST IMPLANT, RIGHT POCKET MODIFICATION WITH CAPSULORRAPHY AND CAPSULOTOMY (Right: Breast) LEFT BREAST AUGMENTATION FOR SYMMETRY WITH SALINE IMPLANT (Left: Breast) Diagnosis: Acquired absence of breast and absent nipple, right Breast asymmetry between pilot point breast and reconstructed breast (breast reconstruction) Surgeons: Gregory Forrest MD Responsible Provider: Jaya Tyson DO Anesthesia Type: general ASA Status: 2 Anesthesia Type: general Vitals Value Taken Time BP 126/74 09/14/22 1527 Temp 98 ??F (36.7 ??C) 09/14/22 1527 Pulse 74 09/14/22 1527 Resp 20 09/14/22 1527 SpO2 100 % 09/14/22 1527 Anesthesia Post Evaluation Patient participation: complete - patient participated Level of consciousness: awake and alert Pain management: satisfactory to patient Airway patency: patent Cardiovascular status: acceptable and blood pressure returned to baseline Respiratory status: acceptable Hydration status: acceptable No notable events documented. * Anesthesia Procedure Notes - Meek Shi CRNA - 09/14/2022 11:09 AM EST Associated Order(s): Peripheral Block Peripheral Block Patient location during procedure: OR Start time: 09/14/2022 11:08 AM End time: 09/14/2022 11:09 AM Reason for block: procedure for pain, at surgeon's request and post-op pain management Staffing Performed: anesthesiologist Anesthesiologist: Adi De Luna MD Preanesthetic Checklist Completed: patient identified, IV checked, site marked, risks and benefits discussed, surgical consent, monitors and equipment checked, pre-op evaluation and timeout performed Peripheral Block Patient position: supine Prep: ChloraPrep Patient monitoring: heart rate, electronic device monitor and continuous pulse ox Block type: PECS Laterality: bilateral Injection technique: single-shot Guidance: ultrasound guided Needle Needle type: pencil-tip Needle gauge: 27 G Needle length: 5 cm Needle localization: ultrasound guidance Medications Administered ropivacaine (Naropin) 0.5 % Perineural - Injection 30 mL - 09/14/2022 11:08:00 AM Assessment Injection assessment: negative aspiration for heme, no paresthesia on injection, incremental injection and local visualized surrounding nerve on ultrasound Heart rate change: no Slow fractionated injection: yes * Anesthesia Procedure Notes - Meek Shi CRNA - 09/14/2022 11:03 AM EST Associated Order(s): Airway Airway Date/Time: 09/14/2022 11:03 AM Urgency: elective Airway not difficult General Information and Staff Patient location during procedure: OR Anesthesiologist: Adi De Luna MD Performed: anesthesiologist Indications and Patient Condition Indications for airway management: anesthesia Spontaneous Ventilation: absent Sedation level: deep Preoxygenated: yes Patient position: sniffing MILS maintained throughout Mask difficulty assessment: 0 - not attempted Final Airway Details Final airway type: endotracheal airway Successful airway: ETT Cuffed: yes Successful intubation technique: direct laryngoscopy Endotracheal tube insertion site: oral Blade: Brayan Blade size: #3 ETT size (mm): 7.0 Cormack-Lehane Classification: grade I - full view of glottis Placement verified by: chest auscultation and capnometry Measured from: lips ETT to lips (cm): 21 Number of attempts at approach: 1 * Anesthesia Preprocedure Evaluation - Adi De Luna MD - 09/14/2022 9:56 AM EST Patient: Catie Martinez Author: Adi De Luna MD Procedure Information Date/Time: 09/14/22 1100 Procedures: TISSUE LIFE SCIENCES DIRECTOR REMOVAL (Right: Breast) BREAST CAPSULOTOMY (Right: Breast) MAMMOPLASTY, AUGMENTATION (Left: Breast) Location: [facility] OR Operating Room Surgeons: Gregory Forrest MD Visit Vitals BP 121/67 Pulse 81 Temp 98 ??F (36.7 ??C) Resp 14 Ht 5' 4 (1.626 m) Wt 215 lb 6.2 oz (97.7 kg) SpO2 98% BMI 36.97 kg/m?? OB Status Postmenopausal Smoking Status Former BSA 2.02 m?? Past Medical History: Diagnosis Date ??? Anxiety [...] ??? NOSE SURGERY ??? SHOULDER SURGERY Bilateral Current Outpatient Medications Medication Instructions ??? amitriptyline (ELAVIL) 100 mg, Oral, Nightly, Take night before surgery ??? anastrozole (ARIMIDEX) 1 mg, Oral, Daily ??? atorvastatin (Lipitor) 80 MG tablet Take 1 tablet (80 mg) by mouth in the morning. Take morningof surgery ??? Calcium 600+D 600-200 MG-UNIT tablet 1 tablet, Oral, 2 times daily RT ??? citalopram (CELEXA) 40 mg, Oral, Daily, Take morning of surgery ??? ergocalciferol (VITAMIN D2) 50,000 Units, Weekly ??? ferrous sulfate 324 MG EC tablet 1 tablet (324 mg) with breakfast. Hold morning of procedure ??? furosemide (Lasix) 20 MG tablet Take 1 tablet (20 mg) by mouth in the morning. Hold morning of procedure ??? glipiZIDE (Glucotrol) 5 MG tablet Take 2 tablets (10 mg) by mouth before breakfast and before evening meal. Hold morning of procedure ??? hydrOXYzine HCl (Atarax) 25 MG tablet 1 tablet, Oral, 2 times daily PRN, May take morning of procedure ??? lisinopril 20 mg, Oral, Daily, Hold morning of procedure ??? loratadine (CLARITIN) 10 mg, Oral, Daily with evening meal, Take night before procedure ??? MAGnesium-Oxide tablet 1 tablet, Oral, 2 times daily RT, Do not take morning of surgery ??? meloxicam (MOBIC) 7.5 mg, Oral, 2 times daily RT, Hold morning of procedure ??? metFORMIN (Glucophage) 1000 MG tablet Take 1 tablet (1,000 mg) by mouth with breakfast and withevening meal. Hold morning of procedure ??? nitroglycerin (NITROSTAT) 0.4 mg, Sublingual, Every 5 min PRN, May repeat dose every 5 minutes for up to 3 doses total. ??? omeprazole (PRILOSEC) 40 mg, Oral, Daily, Take morning of procedure ??? ondansetron (Zofran) 4 MG tablet Take 1 tablet (4 mg) by mouth every 6 (six) hours if needed. ??? oxybutynin XL (DITROPAN-XL) 5 mg, Oral, Daily, Take morning of surgery ??? oxyCODONE-acetaminophen (Percocet) 7.5-325 MG tablet 1 tablet, Oral, Every 8 hours, May take morning of procedure ??? potassium chloride CR (Klor-Con) 10 MEQ ER tablet 10 mEq, Oral, Daily, with food- hold morning of procedure ??? pregabalin (Lyrica) 150 MG capsule 1 capsule, Oral, Every 12 hours, May take morning of procedure ??? rOPINIRole (REQUIP) 1 mg, Oral, Nightly, Take night before surgery ??? semaglutide (Ozempic, 0.25 or 0.5 MG/DOSE,) 2 MG/1.5ML solution pen-injector 0.25 mg 1 (one) time per week. ??? SSD 1 % cream 1 application in the morning and at bedtime. Do apply morning of surgery ??? SUMAtriptan (Imitrex) 100 MG tablet Take 1 tablet (100 mg) by mouth. ??? topiramate 50 MG tablet Take 50 mg by mouth in the morning and at bedtime. Take morning of procedure Allergies Allergen Reactions ??? Other bandaids ??? Adhesive Tape Rash BLISTERS ??? Latex Rash BLISTERS Anesthesia Evaluation Patient summary reviewed, Nursing notes reviewed and NPO status verified No history of anesthetic complications: Airway Dental Pulmonary - normal exam (+) Smoking history (former), Seasonal Allergies Hematology/Oncology (+) Cancer (breast), Neuro/Psych (+) Headaches (migraines), , AnxietyDepression Comments: RLS GI/Hepatic/Renal (+) GERD, (Negative for:) Liver Disease, Kidney Disease Endo (+) Diabetes Mellitus: type 2 using insulin, Obesity, (Negative for:) hypothyroidism Other (Negative for:) Lupus, Drug use and History of alcohol use Cardiovascular - normal exam (+) Hypertension, Hyperlipidemia, (Negative for:) past DC, Dysrhythmias Physical Exam Airway Mallampati: II TM distance: >3 FB Neck ROM: full Oral Opening: >3 cm Neck Circumference: Normal Cardiovascular - normal exam Rhythm: regular Rate: normal Dental (+) Edentulous Pulmonary - normal exam Breath sounds clear to auscultation Anesthesia Plan ASA 2 general Technique: ETT intravenous induction (Post-indx PEC blocks; multimodal perioperative analgesia) Anesthetic plan and risks discussed with patient and spouse. Use of blood products discussed with patient and spouse who consented to blood products. Plan discussed with FIGHT MANAGER. Informed Consent documented in this encounter Plan of Treatment Not on file documented as of this encounter Procedures Procedure Name Priority Date/Time Associated Diagnosis Comments ANESTHESIA PERIPHERAL BLOCK Routine 09/14/2022 11:08 AM EST ANESTHESIA INTUBATION Routine 09/14/2022 11:03 AM EST documented in this encounter Results * Peripheral Block (09/14/2022 11:08 AM EST) Narrative Meek Shi CRNA - 09/14/2022 11:08 AM EST Meek Shi CRNA ? 09/14/2022 11:11 AM Peripheral Block Patient location during procedure: OR Start time: 09/14/2022 11:08 AM End time: 09/14/2022 11:09 AM Reason for block: procedure for pain, at surgeon's request and post-op pain management Staffing Performed: anesthesiologist Anesthesiologist: Adi De Luna MD Preanesthetic Checklist Completed: patient identified, IV checked, site marked, risks and benefits discussed, surgical consent, monitors and equipment checked, pre-op evaluation and timeout performed Peripheral Block Patient position: supine Prep: ChloraPrep Patient monitoring: heart rate, electronic device monitor and continuous pulse ox Block type: PECS Laterality: bilateral Injection technique: single-shot Guidance: ultrasound guided Needle Needle type: pencil-tip Needle gauge: 27 G Needle length: 5 cm Needle localization: ultrasound guidance Medications Administered ropivacaine (Naropin) 0.5 % Perineural - Injection 30 mL - 09/14/2022 11:08:00 AM Assessment Injection assessment: negative aspiration for heme, no paresthesia on injection, incremental injection and local visualized surrounding nerve on ultrasound Heart rate change: no Slow fractionated injection: yes Adi De Luna MD ANESTHESIA ORDERABLE S * Airway (09/14/2022 11:03 AM EST) Meek Jones CRNA - 09/14/2022 11:03 AM EST Meek Shi CRNA ? 09/14/2022 11:04 AM Airway Date/Time: 09/14/2022 11:03 AM Urgency: elective Airway not difficult General Information and Staff Patient location during procedure: OR Anesthesiologist: Adi De Luna MD Performed: anesthesiologist Indications and Patient Condition Indications for airway management: anesthesia Spontaneous Ventilation: absent Sedation level: deep Preoxygenated: yes Patient position: sniffing MILS maintained throughout Mask difficulty assessment: 0 - not attempted Final Airway Details Final airway type: endotracheal airway Successful airway: ETT Cuffed: yes Successful intubation technique: direct laryngoscopy Endotracheal tube insertion site: oral Blade: Brayan Blade size: #3 ETT size (mm): 7.0 Cormack-Lehane Classification: grade I - full view of glottis Placement verified by: chest auscultation and capnometry Measured from: lips ETT to lips (cm): 21 Number of attempts at approach: 1 Adi De Luna MD ANESTHESIA ORDERABLE S documented in this encounter Visit Diagnoses Not on filedocumented in this encounter Administered Medications Inactive Administered Medications - up to 3 most recent administrations Medication Order MAR Action Action Date Dose Rate Site acetaminophen (Ofirmev) injection Intravenous, As needed, Starting on Nikki 09/14/22 at 1112, Anesthesia Intraprocedure Given 09/14/2022 11:12 AM EST 1,000 mg ceFAZolin (Ancef) injection 2 g 2 g, Intravenous, Once, On Nikki 09/14/22 at 1000, For 1 dose, Preprocedure, Administer within 60 minutes of incision., Suspected Indication (Select all that apply): Surgical Prophylaxis Given 09/14/2022 11:11 AM EST 2 g clindamycin 900 mg in sodium chloride 0.9 % 50 mL IVPB 900 mg, Intravenous, at 100 mL/hr, Administer over 30 Minutes, Once, On Nikki 09/14/22 at 1000, For 1 dose, Preprocedure, Administer within 60 minutes of incision. [id number] Administration System - ensure contents are activated and reconstituted prior to administration., Suspected Indication (Select all that apply): Surgical Prophylaxis New Bag 09/14/2022 11:06 AM EST 900 mg fentaNYL (Sublimaze) injection Intravenous, As needed, Starting on Nikki 09/14/22 at 1101, Anesthesia Intraprocedure Given 09/14/2022 2:14 PM EST 25 mcg Given 09/14/2022 2:12 PM EST 25 mcg Given 09/14/2022 2:10 PM EST 25 mcg lactated Ringer's infusion Intravenous, Continuous PRN, Starting on Nikki 09/14/22 at 1051, Anesthesia Intraprocedure Restarted 09/14/2022 2:18 PM EST New Bag 09/14/2022 10:51 AM EST 125 mL/hr lidocaine (Xylocaine) injection Intravenous, As needed, Starting on Nikki 09/14/22 at 1101, Anesthesia Intraprocedure Given 09/14/2022 2:32 PM EST 25 mg Given 09/14/2022 11:01 AM EST 100 mg midazolam (Versed) injection Intravenous, As needed, Starting on Nikki 09/14/22 at 1051, Anesthesia Intraprocedure Given 09/14/2022 10:51 AM EST 2 mg phenylephrine (Juan-Synephrine) syringe Intravenous, As needed, Starting on Nikki 09/14/22 at 1129, Anesthesia Intraprocedure Given 09/14/2022 12:02 PM ES T 100 mcg Given 09/14/2022 11:52 AM EST 100 mcg Given 09/14/2022 11:38 AM EST 100 mcg phenylephrine (Vazculep) 25,000 mcg in dextrose 5 % 250 mL (100 mcg/mL) infusion Intravenous, Continuous PRN, Starting on Nikki 09/14/22 at 1125, Anesthesia Intraprocedure New Bag 09/14/2022 11:25 AM EST 25 mcg/min 15 mL/hr propofol (Diprivan) infusion 10 mg/mL Intravenous, As needed, Starting on Nikki 09/14/22 at 1101, Anesthesia Intraprocedure Given 09/14/2022 11:01 AM EST 200 mg rocuronium (Zemuron) injection Intravenous, As needed, Starting on Nikki 09/14/22 at 1101, Anesthesia Intraprocedure Given 09/14/2022 12:30 PM EST 20 mg Given 09/14/2022 12:23 PM EST 10 mg Given 09/14/2022 12:16 PM EST 20 mg ropivacaine (Naropin) 5 MG/ML injection Injection, Once PRN Procedure, Starting on Nikki 09/14/22 at 1108, For 1 dose, Anesthesia Intraprocedure Given 09/14/2022 11:08 AM EST 30 mL sugammadex (Bridion) injection Intravenous, As needed, Starting on Nikki 09/14/22 at 1418, Anesthesia Intraprocedure Given 09/14/2022 2:18 PM EST 20 0 mg tranexamic acid (Cyklokapron) injection Intravenous, As needed, Starting on Nikki 09/14/22 at 1112, Anesthesia Intraprocedure Given 09/14/2022 11:12 A M EST 1,000 mg documented in this encounter Care Teams Shipping Associate Relationship Specialty Start Date End Date Ricardo Contreras MD [address] [place] [address] PCP - General Jalil Marie MD [address] [place] [address] Consulting Physician Hematology 04/12/22 Barbie Jorgensen APRN [address] [place] [address] Nurse Practitioner Oncology 06/21/22 documented as of this encounter
--- OUTSIDE RECORDS SUMMARY | 2024-08-18 13:09 | XMS_ITS | Encounter Summary ---
Author Organization [facility] nter Address [address] [place], [place] [id number] [place] [id number] Care Team Providers Care Aircraft Tool Maker Name Role Phone Ricardo Contreras MD Primary Care Provider + Jalil Marie MD Unavailable [phone] Barbie Jorgensen APRN Unavailable [phone] Encounter Details Date Type Department Care Team (Latest Contact Info) Description 12/10/2022 Travel Social History Tobacco Use Types Packs/Day [...] suspected to have Coronavirus/COVID-19? No / Unsure 12/10/2022 5:49 PM EDT documented as of this encounter Plan of Treatment Not on file documented as of this encounter Visit Diagnoses Not on filedocumented in this encounter Care Teams Aircraft Tool Maker Relationship Specialty Start Date End Date Ricardo Contreras MD [address] [place] [address] PCP - General Jalil Marie MD [address] [place] [address] Consulting Physician Hematology 04/12/22 Barbie Jorgensen APRN [address] [place] [address] Nurse Practitioner Oncology 06/21/22 documented as of this encounter
--- OUTSIDE RECORDS SUMMARY | 2024-08-18 13:09 | XMS_ITS | Encounter Summary ---
Author Organization [facility] nter Address [address] [place] [address] Care Team Providers Care Health Coordinator Name Role Phone Ricardo Contreras MD Primary Care Provider + Jalil Marie MD Unavailable [phone] Barbie Jorgensen APRN Unavailable [phone] Encounter Details Date Type Department Care Team (Latest Contact Info) Description 10/11/2022 9:45 AM EST Office Visit [facility] [address] [place] [address] Gregory Forrest MD [address] [place] [phone] Acquired absence of breast and absent nipple, right (Primary Dx); Breast asymmetry between [place] breast and reconstructed breast Social History Tobacco [...] Progress Notes * Gregory Forrest MD - 10/11/2022 9:45 AM EST Subjective : Patient ID: Catie Martinez is a 51 y.o. female. History of Present Illness:S/P exchange rt TE for saline implant, left breast augm for symmetry with saline implant.?? Objective : Physical Exam Constitutional She appears well-developed and well-nourished. Eyes System normal. Skin Skin is warm. Psychiatric She has a normal mood and affect. Her behavior is normal. Rt breast incision healing well.??Sutures present, no erythema. No drainage. Assessment/Plan : 1. Acquired absence of breast and absent nipple, right 2. Breast asymmetry between [place] breast and reconstructed breast Healing well. Bactroban BID. F/up 2 w for suture removal. documented in this encounter Plan of Treatment Not on file documented as of this encounter Visit Diagnoses Diagnosis Acquired absence of breast and absent nipple, right- Primary Breast asymmetry between [place] breast and reconstructed breast Disproportion of reconstructed breast documented in this encounter Care Teams Health Coordinator Relationship Specialty Start Date End Date Ricardo Contreras MD [address] [place] [address] PCP - General Jalil Marie MD [address] [place] [address] Consulting Physician Hematology 04/12/22 Barbie Jorgensen APRN [address] [place] [address] Nurse Practitioner Oncology 06/21/22 documented as of this encounter
--- OUTSIDE RECORDS SUMMARY | 2024-08-18 13:09 | XMS_ITS | Encounter Summary ---
Author Organization [facility] Address [address] [place] [address] Care Team Providers Care Highway Maintenance Worker Name Role Phone Ricardo Contreras MD Primary Care Provider + Jalil Marie MD Unavailable [phone] Barbie Jorgensen APRN Unavailable [phone] Encounter Details Date Type Department Care Team (Latest Contact Info) Description 11/17/2022 9:15 AM EST Office Visit [facility] [address] [place] [address] Gregory Forrest MD [address] [place] [phone] Acquired absence of breast and absent nipple, right (Primary Dx); Breast asymmetry between [place] breast and reconstructed breast Social History Tobacco [...] suspected to have Coronavirus/COVID-19? No / Unsure 11/17/2022 8:53 AM EST documented as of this encounter Progress Notes * Gregory Forrest MD - 11/17/2022 9:15 AM EST Subjective : Patient ID: Catie Martinez is a 52 y.o. female. History of Present Illness: S/P exchange rt TE for saline implant, left breast augm for symmetry with saline implant.?? Objective : Physical Exam Constitutional She appears well-developed and well-nourished. Eyes System normal. Pulmonary/Chest Effort normal. Psychiatric She has a normal mood and affect. Her behavior is normal. Jhon incisions healed well. Rt implant soft mobile. Assessment/Plan : 1. Acquired absence of breast and absent nipple, right 2. Breast asymmetry between [place] breast and reconstructed breast Exposed tip of suture removed from rt breast. Picture taken. F/up 1 m. Pt happy with result. documented in this encounter Plan of Treatment Not on file documented as of this encounter Visit Diagnoses Diagnosis Acquired absence of breast and absent nipple, right- Primary Breast asymmetry between [place] breast and reconstructed breast Disproportion of reconstructed breast documented in this encounter Care Teams Highway Maintenance Worker Relationship Specialty Start Date End Date Ricardo Contreras MD [address] [place] [address] PCP - General Jalil Marie MD [address] [place] [address] Consulting Physician Hematology 04/12/22 Barbie Jorgensen APRN [address] [place] [address] Nurse Practitioner Oncology 06/21/22 documented as of this encounter
--- OUTSIDE RECORDS SUMMARY | 2024-08-18 13:09 | XMS_ITS | Encounter Summary ---
Author Organization [facility] nter Address [address] [place] [address] [place] [id number] Care Team Providers Care Carpet Cutter Name Role Phone Ricardo Contreras MD Primary Care Provider + Jalil Marie MD Unavailable [phone] Barbie Jorgensen APRN Unavailable [phone] Reason for Visit * Reason Comments PPD Read Encounter Details Date Type Department Care Team (Late st Contact Info) Description 12/12/2022 9:15 AM EDT Clinical Support [facility] [address] [place] [phone] Elvia Weems PA Social History Tobacco Use Types Packs/Day Years [...] suspected to have Coronavirus/COVID-19? No / Unsure 12/12/2022 9:21 AM EDT documented as of this encounter Plan of Treatment Not on file documented as of this encounter Visit Diagnoses Not on filedocumented in this encounter Care Teams Carpet Cutter Relationship Specialty Start Date End Date Ricardo Contreras MD [address] [place] [address] PCP - General Jalil Marie MD [address] [place] [address] Consulting Physician Hematology 04/12/22 Barbie Jorgensen APRN [address] [place] [address] Nurse Practitioner Oncology 06/21/22 documented as of this encounter
--- OUTSIDE RECORDS SUMMARY | 2024-08-18 13:09 | XMS_ITS | Encounter Summary ---
Author Organization [facility] nter Address [address] [place], [place] [id number] [place] [address] Care Team Providers Care Blasting Worker Name Role Phone Ricardo Contreras MD Primary Care Provider + Jalil Marie MD Unavailable [phone] Barbie Jorgensen APRN Unavailable [phone] Encounter Details Date Type Department Care Team (Latest Contact Info) Description 09/14/2022 Travel Social History Tobacco Use Types Packs/Day [...] on filedocumented in this encounter Care Teams Blasting Worker Relationship Specialty Start Date End Date Ricardo Contreras MD [address] [place] [address] PCP - General Jalil Marie MD [address] [place] [address] Consulting Physician Hematology 04/12/22 Barbie Jorgensen APRN [address] [place] [address] Nurse Practitioner Oncology 06/21/22 documented as of this encounter
--- OUTSIDE RECORDS SUMMARY | 2024-08-18 13:09 | XMS_ITS | Encounter Summary ---
Author Organization [facility] nter Address [address] [place], [place] [address] [place] [address] Care Team Providers Care Blanchard Grinder Operator Name Role Phone Ricardo Contreras MD Primary Care Provider + Jalil Marie MD Unavailable [phone] Barbie Jorgensen APRN Unavailable [phone] Encounter Details Date Type Department Care Team (Latest Contact Info) Description 12/08/2022 Travel Social History Tobacco Use Types Packs/Day [...] suspected to have Coronavirus/COVID-19? No / Unsure 12/08/2022 2:11 PM EDT documented as of this encounter Plan of Treatment Not on file documented as of this encounter Visit Diagnoses Not on filedocumented in this encounter Care Teams Blanchard Grinder Operator Relationship Specialty Start Date End Date Ricardo Contreras MD [address] [place] [address] PCP - General Jalil Marie MD [address] [place] [address] Consulting Physician Hematology 04/12/22 Barbie Jorgensen APRN [address] [place] [address] Nurse Practitioner Oncology 06/21/22 documented as of this encounter
--- OUTSIDE RECORDS SUMMARY | 2024-08-18 13:09 | XMS_ITS | Encounter Summary ---
Author Organization [facility] nter Address [address] [place], [place] [address] [place] [address] Care Team Providers Care Information Coder Name Role Phone Ricardo Contreras MD Primary Care Provider + Jalil Marie MD Unavailable [phone] Barbie Jorgensen APRN Unavailable [phone] Encounter Details Date Type Department Care Team (Latest Contact Info) Description 09/13/2022 Travel Social History Tobacco Use Types Packs/Day [...] suspected to have Coronavirus/COVID-19? No / Unsure 09/13/2022 4:12 PM EST documented as of this encounter Plan of Treatment Not on file documented as of this encounter Visit Diagnoses Not on filedocumented in this encounter Care Teams Information Coder Relationship Specialty Start Date End Date Ricardo Contreras MD [address] [place] [address] PCP - General Jalil Marie MD [address] [place] [address] Consulting Physician Hematology 04/12/22 Barbie Jorgensen APRN [address] [place] [address] Nurse Practitioner Oncology 06/21/22 documented as of this encounter
--- OUTSIDE RECORDS SUMMARY | 2024-08-18 13:09 | XMS_ITS | Encounter Summary ---
Author Organization [facility] nter Address [address] [place] [address] Care Team Providers Care Risk And Compliance Analytics Director Name Role Phone Ricardo Contreras MD Primary Care Provider + Lina Akins MD Unavailable [phone] Barbie Jorgensen APRN Unavailable [phone] Reason for Visit * Reason Comments Follow-up Encounter Details Date Type Department Care Team (Late st Contact Info) Description 10/18/2022 10:45 AM EST Office Visit [facility] [address] [place] [address] Barbie Jorgensen APRN [address] [place] [address] 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 Patient ID: Catie Martinez is a 51 y.o. female. Referring Physician: Barbie Jorgensen NP [address] [place] [address] Primary Care Provider: Ricardo Contreras MD Subjective [...] dimension 1.0 cm. Negative for lymphovascular invasion. [place] Grade II/III (2 +2+1). Negative for intraductal carcinoma. Negative for necrosis ?? 08/04/20: FROZEN SECTION DIAGNOSIS, 1. ??[place] Lymph Node #1, Excision (1FS1): -Negative for macrometastasis. 2. ??[place] Lymph Node #2, Excision (2FS1): -Negative for macrometastasis. DIAGNOSIS, 1. ??[place] Lymph Node #1, Excision (1FS1): -One lymph node is negative for malignancy. 2. ??[place] Lymph Node #2, Excision (2FS1): -One lymph node is negative for malignancy. 3. ??[place] Lymph Node #3, Excision: - One lymph [...] Benefit - <1%, 10.0 ER Positive, 9.0 MT Positive, 8.9 HER2 Negative ?? 09/16/20: US [...] post right mastectomy with reconstruction and tissue director of health education in place. 3. Other chronic findings as noted. Report Sign Date: 06/14/2022 10:48 AM, Electronically Signed By: Roverto Rucker MD Review of Systems Musculoskeletal: Positive for arthralgias and back pain. All other systems reviewed and are negative. Objective BSA: 2.06 meters squared BP 154/87 (BP Location: Left arm, Patient Position: Sitting, BP Cuff Size: Adult long) Pulse 76 Resp 18 Wt 227 lb (103 kg) SpO2 97% BMI 38.96 kg/m?? Physical Exam Constitutional: General: She is not in acute distress. HENT: Head: Normocephalic. Eyes: Pupils: Pupils are equal, round, and reactive to light. Cardiovascular: Rate and Rhythm: Normal rate and regular rhythm. Heart sounds: No murmur heard. Pulmonary: Effort: No respiratory distress. Breath sounds: Normal breath sounds. No wheezing or rales. Chest: Abdominal: General: Bowel sounds are normal. There is no distension. Tenderness: There is no abdominal tenderness. Skin: General: Skin is warm and dry. Neurological: Mental Status: She is alert and oriented to person, place, and time. Psychiatric: Mood and Affect: Mood normal. ECOG Performance Status: 0 - Fully active, able to carry on all pre-disease performance without restriction Pain Scale: 7 Lab Results Component Value Date WBC 6.9 10/18/2022 HGB 12.8 10/18/2022 HCT 39.4 10/18/2022 PLT 195 10/18/2022 LDH 204 (H) 08/19/2020 CREATININE 1.20 (H) 06/21/2022 AST 21 10/18/2022 CEA 4.0 (H) 04/12/2022 Assessment/Plan Cancer Staging [...] margin, grade 2, ER positive at 100%, MT +100%, and HER-2 new negative on immunohistochemistry. [...] Discussed possible side effect of osteonecrosis, she isagreeable to proceed. She has no natural teeth left, so no dental clearance will be required. ?? Here today on follow up for breast cancer. Doing well. Has not started Prolia yet. No new headache or bone pain. Completed breast reconstruction 2 weeks ago. Healing well. Reviewed labs. Stable Plan: Continue Arimidex, calcium +D. Refill E-scribed Prolia for fracture prevention FU 3 months Orders: - CBC auto differential - Hepatic function panel; Future - Clinic Appointment Request Follow up; BARBIE JORGENSEN - Clinic Appointment Request Follow up; LINA AKINS; Future Other orders - anastrozole (Arimidex) 1 MG chemo tablet; Take 1 tablet (1 mg total) by mouth in the morning. Treatment Details Treatment goal [No plan goal] Plan Name DENOSUMAB (PROLIA) Q6MON Status Active Start Date 10/18/2022 End Date Until discontinued Provider Barbie Jorgensen NP Chemotherapy [No matching medication found in this treatment plan] documented in this encounter Miscellaneous Notes * Assessment & Plan Note - Ashley Guerrero - 10/18/2022 10:55 AM ESTAssociated Problem(s): Malignant neoplasm of upper-outer quadrant of right breast in female, estrogen receptor positive Perimenopausal white female who was found to have right breast cancer status post right mastectomy by Dr. Duarte on July 08, 2020 with pathology showing 15 mm IDC, negative margins with 0.5 cm the closest margin, grade 2, ER positive at 100%, MT +100%, and HER-2 new negative on immunohistochemistry. [...] Discussed possible side effect of osteonecrosis, she isagreeable to proceed. She has no natural teeth left, so no dental clearance will be required. ?? Here today on follow up for breast cancer. Doing well. Has not started Prolia yet. No new headache or bone pain. Completed breast reconstruction 2 weeks ago. Healing well. Reviewed labs. Stable Plan: Continue Arimidex, calcium +D. 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, estrogen receptor positive documented in this encounter Results * Hepatic function panel (10/18/2022 10:53 AM EST) Total Bilirubin 0.3 0.0 - 1.0 mg/dL 10/18/2022 11:48 AM [facility] Bilirubin, Direct 0.10 0.00 - 0.20 mg/dL 10/18/2022 11:48 AM [facility] Alkaline Phosphatase 77 45 - 117 U/L 10/18/2022 11:48 AM [facility] AST 21 15 - 37 U/L 10/18/2022 11:48 AM [facility] ALT (SGPT) 32 13 - 56 U/L 10/18/2022 11:48 AM [facility] Albumin 3.5 3.4 - 5.0 g/dL 10/18/2022 11:48 AM [facility] Total Protein 7.3 6.4 - 8.4 g/dL 10/18/2022 11:48 AM [facility] Blood Venous blood specimen / Unknown Venipuncture / Unknown 10/18/2022 10:53 AM EST 10/18/2022 11:14 AM [facility] - 10/18/2022 11:48 AM EST Results for ALT may be adversely affected when samples are collected on patients taking Sulfasalazine and/or Sulfapyridine. Barbie Jorgensen APRN LAB BLOOD ORDERABLES [facility] [address] [place] [address], * (ABNORMAL) CBC auto differential (10/18/2022 10:53 AM EST) Auto WBC 6.9 3.0 - 11.3 10*3/uL LAB HEMATOLOGY METHOD 10/18/2022 11:45 AM [facility] RBC 4.61 3.45 - 5.40 10*6/uL LAB HEMATOLOGY METHOD 10/18/2022 11:45 AM [facility] Hemoglobin 12.8 10.0 - 16.0 g/dL LAB HEMATOLOGY METHOD 10/18/2022 11:45 AM [facility] Hematocrit 39.4 29.9 - 45.5 % LAB HEMATOLOGY METHOD 10/18/2022 11:45 AM [facility] MCV 85.5 78.2 - 101.8 fL LAB HEMATOLOGY METHOD 10/18/2022 11:45 AM [facility] MCH 27.7 26.4 - 33.3 pg LAB HEMATOLOGY METHOD 10/18/2022 11:45 AM [facility] MCHC 32.4(L) 32.5 - 35.3 g/dL LAB HEMATOLOGY METHOD 10/18/2022 11:45 AM [facility] RDW 16.9(H) 10.1 - 16.2 % LAB HEMATOLOGY METHOD 10/18/2022 11:45 AM [facility] MPV 8.0 6.4 - 10.4 fL LAB HEMATOLOGY METHOD 10/18/2022 11:45 AM [facility] Neutrophils % 54 43 - 83 % LAB HEMATOLOGY METHOD 10/18/2022 11:45 AM [facility] Lymphocytes % 33 10 - 42 % LAB HEMATOLOGY METHOD 10/18/2022 11:45 AM [facility] Monocytes % 5 1 - 14 % LAB HEMATOLOGY METHOD 10/18/2022 11:45 AM [facility] Eosinophils % 7 0 - 11 % LAB HEMATOLOGY METHOD 10/18/2022 11:45 AM [facility] Basophils % 1 0 - 2 % LAB HEMATOLOGY METHOD 10/18/2022 11:45 AM [facility] Neutrophils Absolute 3.70 3.40 - 7.00 10*3/uL LAB HEMATOLOGY METHOD 10/18/2022 11:45 AM [facility] Lymphocytes Absolute 2.20 0.40 - 3.90 10*3/uL LAB HEMATOLOGY METHOD 10/18/2022 11:45 AM EST [facility] Monocytes Absolute 0.30 0.20 - 0.60 10*3/uL LAB HEMATOLOGY METHOD 10/18/2022 11:45 AM EST [facility] Eosinophils Absolute 0.50 0.00 - 0.90 10*3/uL LAB HEMATOLOGY METHOD 10/18/2022 11:45 AM [facility] Basophils Absolute 0.10 0.00 - 0.20 10*3/uL LAB HEMATOLOGY METHOD 10/18/2022 11:45 AM [facility] Platelets 195 122 - 454 10*3/uL LAB HEMATOLOGY METHOD 10/18/2022 11:45 AM [facility] Blood Venous blood specimen / Unknown Venipuncture / Unknown 10/18/2022 10:53 AM EST 10/18/2022 11:14 AM EST Barbie Jorgensen APRN LAB BLOOD ORDERABLES [facility] [address] [place] [address], documented in this encounter Visit Diagnoses Diagnosis 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
--- OUTSIDE RECORDS SUMMARY | 2024-08-18 13:09 | XMS_ITS | Encounter Summary ---
Author Organization [facility] n[facility] Address [address] [place], [place] [address] [place] [address] Care Team Providers Care Renewable Energy Trader Name Role Phone Ricardo Contreras MD Primary Care Provider + Jalil Marie MD Unavailable [phone] Barbie Jorgensen APRN Unavailable [phone] Encounter Details Date Type Department Care Team (Latest Contact Info) Description 11/17/2022 Travel Social History Tobacco Use Types Packs/Day [...] on filedocumented in this encounter Care Teams Renewable Energy Trader Relationship Specialty Start Date End Date Ricardo Contreras MD [address] [place] [address] PCP - General Jalil Marie MD [address] [place] [address] Consulting Physician Hematology 04/12/22 Barbie Jorgensen APRN [address] [place] [address] Nurse Practitioner Oncology 06/21/22 documented as of this encounter
--- OUTSIDE RECORDS SUMMARY | 2024-08-18 13:09 | XMS_ITS | Encounter Summary ---
Author Organization [facility] Address [address] [place] [address] Care Team Providers Care Development Architect Name Role Phone Ricardo Contreras MD Primary Care Provider + Jalil Marie MD Unavailable [phone] Barbie Jorgensen APRN Unavailable [phone] Encounter Details Date Type Department Care Team (Latest Contact Info) Description 09/15/2022 8:30 AM EST Office Visit [facility] [address] [place] [address] Gregory Forrest MD [address] [place] [address] Acquired absence of breast and absent nipple, right (Primary Dx); Breast asymmetry between [place] breast and reconstructed breast Social History Tobacco [...] Progress Notes * Gregory Forrest MD - 09/15/2022 8:30 AM EST Subjective : Patient ID: Catie Martinez is a 51 y.o. female. History of Present Illness: S/P exchange rt TE for saline implant, left breast augm for symmetry with saline implant. Objective : Physical Exam Constitutional She appears well-developed and well-nourished. Eyes System normal. Pulmonary/Chest Effort normal. Skin Skin is warm. Psychiatric She has a normal mood and affect. Her behavior is normal. Jhon breast mild edema, dressings C/D/I. Assessment/Plan : 1. Acquired absence of breast and absent nipple, right 2. Breast asymmetry between [place] breast and reconstructed breast Procedure performed discussed. On ri DS. No strenuous activities. F/up other Sunday. documented in this encounter Plan of Treatment Not on file documented as of this encounter Visit Diagnoses Diagnosis Acquired absence of breast and absent nipple, right- Primary Breast asymmetry between [place] breast and reconstructed breast Disproportion of reconstructed breast documented in this encounter Care Teams Development Architect Relationship Specialty Start Date End Date Ricardo Contreras MD [address] [place], [place] [id number] PCP - General Jalil Marie MD [address] [place] [address] Consulting Physician Hematology 04/12/22 Barbie Jorgensen APRN [address] [place] [address] Nurse Practitioner Oncology 06/21/22 documented as of this encounter
--- OUTSIDE RECORDS SUMMARY | 2024-08-18 13:09 | XMS_ITS | Encounter Summary ---
Author Organization [facility] nter Address [address] [place], [place] [address] [place] [address] Care Team Providers Care College Athletic Director Name Role Phone Ricardo Contreras MD Primary Care Provider + Jalil Marie MD Unavailable [phone] Barbie Jorgensen APRN Unavailable [phone] Encounter Details Date Type Department Care Team (Latest Contact Info) Description 10/04/2022 Travel Social History Tobacco Use Types Packs/Day [...] filedocumented in this encounter Care Teams College Athletic Director Relationship Specialty Start Date End Date Ricardo Contreras MD [address] [place] [address] PCP - General Jalil Marie MD [address] [place] [address] Consulting Physician Hematology 04/12/22 Barbie Jorgensen APRN [address] [place] [address] Nurse Practitioner Oncology 06/21/22 documented as of this encounter
--- OUTSIDE RECORDS SUMMARY | 2024-08-18 13:09 | XMS_ITS | Encounter Summary ---
Author Organization [facility] Address [address] [place] [address] Care Team Providers Care Grizzly Worker Name Role Phone Ricardo Contreras MD Primary Care Provider + Jalil Marie MD Unavailable [phone] Barbie Jorgensen APRN Unavailable [phone] Reason for Visit * Reason Comments PPD Placement [facility] 2[facility] tb skin test. Encounter Details Date Type Department Care Team (Late st Contact Info) Description 12/10/2022 6:00 PM EDT Office Visit [facility] [address] [place] [id number] Mehreen Arce NP [address] [place] [address] Visit for TB skin test Social History Tobacco Use Types Packs/Day Years [...] as of this encounter Visit Diagnoses Diagnosis Visit for TB skin test documented in this encounter Care Teams Grizzly Worker Relationship Specialty Start Date End Date Ricardo Contreras MD [address] [place] [address] PCP - General Jalil Marie MD [address] [place] [address] Consulting Physician Hematology 04/12/22 Barbie Jorgensen APRN [address] [place] [address] Nurse Practitioner Oncology 06/21/22 documented as of this encounter
--- OUTSIDE RECORDS SUMMARY | 2024-08-18 13:09 | XMS_ITS | Encounter Summary ---
Author Organization [facility] nter Address [address] [place] [address] Care Team Providers Care Chief Deputy Clerk/Bailiff Name Role Phone Ricardo Contreras MD Primary Care Provider + Jalil Marie MD Unavailable [phone] Barbie Jorgensen APRN Unavailable [phone] Reason for Visit * Reason Comments Insect Bite Encounter Details Date Type Department Care Team (Late st Contact Info) Description 12/12/2022 10:44 PM EDT - 12/12/2022 11:54 PM EDT Emergency [facility] EMERGENCY DEPARTMENT [address] [place] [address] Kobi Vahe SearsDO [address] [place] [address] Rash (Primary Dx); Itching Discharge Disposition: Home or Self Care Social [...] to have Coronavirus/COVID-19? No / Unsure 12/12/2022 10:54 PM EDT documented as of this encounter Last Filed Vital Signs Vital Sign Reading Time Taken Comments Blood Pressure 121/59 12/12/2022 10:53 PM EDT Pulse 77 12/12/2022 10:53 PM EDT Temperature - - Respiratory Rate 18 12/12/2022 10:53 PM EDT Oxygen Saturation 99% 12/12/2022 10:53 PM EDT Inhaled Oxygen Concentration - - Weight 90.7 kg (200 lb) 12/12/2022 10:53 PM EDT Height 162.6 cm (5' 4 ) 12/12/2022 10:53 PM EDT Body Mass Index 34.33 12/12/2022 10:53 PM EDT documented in this encounter Medications [...] surgery 03/16/2022 ergocalciferol (Vitamin D2) 1.25 MG (33181 UT) capsule 1 capsule (50,000 Units) 1 [...] bedtime. May take morning of procedure 01/18/2022 hydrOXYzine pamoate (Vistaril) 25 MG capsule Take 1 capsule (25 mg) by mouth if needed in the morning, at noon, and at bedtime for itching for up to 10 days. 30 capsule 12/12/2022 Lancets (OneTouch Delica Plus [id number][place] [facility] [place], at noon, and at [...] and at bedtime. Take morning of procedure cephalexin (Keflex) 500 MG capsule Take 1 capsule (500 mg) by mouth in the morning, at noon, and at bedtime for 10 days. 30 capsule 12/12/2022 12/22/2022 amitriptyline (Elavil) 100 MG tablet Take 1 [...] as of this encounter ED Notes * Vahe Peace DO - 12/12/2022 11:11 PM EDT HPI Chief Complaint Patient presents with ??? Insect Bite 52 yr old female presents to the ED with c/o insect bite. Pt notes that she has a spot on her leg that looks to be a bug bite below her knee. Pt states that she was unable to identify the bug. Pt denies any fever/chills, itching, bleeding, or any other associated symptoms or modifying factors. [place] Coma Scale Score: 15 Patient History Past [...] Types: Cigarettes Quit date: 2018 Years since quittin.2 Passive exposure: Current ??? Smokeless tobacco: Never Vaping Use ??? Vaping status: Never Used Substance Use Topics ??? Alcohol use: Never [...] difficulty urinating, dysuria, flank pain and urgency. Musculoskeletal: Negative for back pain, joint swelling and neck stiffness. Skin: Positive for wound. Negative for rash. Allergic/Immunologic: Negative for environmental allergies. Neurological: Negative for dizziness, tremors, syncope, light-headedness, numbness and headaches. Psychiatric/Behavioral: Negative for confusion, hallucinations and suicidal ideas. Physical Exam ED Triage Vitals [12/12/22 2253] Temp Heart Rate Resp BP -- 77 18 121/59 SpO2 Temp src Heart Rate Source Patient Position 99 % -- -- -- BP Location FiO2 (%) -- [...] guarding or rebound. Musculoskeletal: General: No swelling, tenderness, deformity or signs of injury. Normal range of motion. Cervical back: Normal range of motion and neck supple. Right lower leg: No edema. Left lower leg: No edema. Skin: General: Skin is warm and dry. Capillary Refill: Capillary refill takes less than 2 seconds. Coloration: Skin is not jaundiced. Findings: Erythema (LLE down entire pretibia, does kadi on palpation, ) present. No rash. Neurological: General: No focal deficit present. [...] data to display ED Course & MDM MDM EKG: Labs: Labs Reviewed - No data to display Radiology: @RISRSLT@ Imaging: No orders to display No orders to display NURSING NOTES AND VITALS REVIEWED The nursing notes within the ED encounter and vital signs as below have been reviewed. BP 121/59 Pulse 77 Resp 18 Ht 5' 4 (1.626 m) Wt 200 lb (90.7 kg) SpO2 99% BMI 34.33 kg/m?? PROGRESS NOTES The plan has been discussed with the patient regarding the diagnosis and prognosis. All questions have been answered at this time and they are agreeable with the plan of care. Instructions were givento return immediately for any new or worrisome concerns. Medications - No data to display Discharge Medication List as of 12/12/2022 11:52 PM START taking these medications Details cephalexin (Keflex) 500 MG capsule Take 1 capsule (500 mg) by mouth in the morning, at noon, and atbedtime for 10 days., Starting Sun12/12/2022, Until Sun12/22/2022, Normal hydrOXYzine pamoate (Vistaril) 25 MG capsule Take 1 capsule (25 mg) by mouth if needed in the morning, at noon, and at bedtime for itching for up to 10 days., Starting Sun12/12/2022, Until Sun12/22/2022 at 2359, Normal Diagnosis: 1. Rash 2. Itching Disposition: Time Spent in Critical Care of the patient: Patient's disposition: Discharge to home Patient's condition is stable. Diagnoses as of 12/12/22 2349 Rash Itching No orders to display Vahe Peace DO 12/13/22 0531 * Asia Menezes RN - 12/12/2022 10:52 PM EDT Pt c/o insect bite on left leg, below knee. Did not see type of bug. documented in this encounter Plan of Treatment Not on file documented as of this encounter Visit Diagnoses Diagnosis Rash- Primary Rash and other nonspecific skin eruption Itching Unspecified pruritic disorder documented in this encounter Care Teams Chief Deputy Clerk/Bailiff Relationship Specialty Start Date End Date Ricardo Contreras MD [address] [place] [address] PCP - General Jalil Marie MD [address] [place] [address] Consulting Physician Hematology 04/12/22 Barbie Jorgensen APRN [address] [place] [address] Nurse Practitioner Oncology 06/21/22 documented as of this encounter
--- OUTSIDE RECORDS SUMMARY | 2024-08-18 13:09 | XMS_ITS | Encounter Summary ---
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, estrogen receptor positive Barbie Jorgensen, ROLLS BAKER [address] [place] [address] [facility] Med Onc [address] [place] [address] Referral ID Status Reason Start Date Expiration Date V isits Requested Visits Authorized [id number] Authorized 07/24/2023 01/20/2024 2 2 Encounter Details Date Type Department Care Team (Latest Contact Info) Description 01/24/2023 10:38 AM EDT - 01/24/2023 12:27 PM EDT Hospital Encounter [facility] [address] [place] [address] 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 Protect from light. Do not shake. Given 01/24/2023 12:09 PM EDT 60 mg Left Upper Arm (Back) documented in this encounter Care Teams Regional Clinical Research Associate Relationship Specialty Start Date End Date Ricardo Contreras MD [address] [place] [address] PCP - General Jalil Marie MD [address] [place] [address] Consulting Physician Hematology 04/12/22 Barbie Jorgensen APRN [address] [place] [address] Nurse Practitioner Oncology 06/21/22 Clara Holbrook APRN [address] [place] [address] Nurse Practitioner Oncology 01/24/23 documented as of this encounter
--- OUTSIDE RECORDS SUMMARY | 2024-08-18 13:09 | XMS_ITS | Encounter Summary ---
Author Organization [facility] nter Address [address] [place] [address] [place] [id number] Care Team Providers Care C D Still Operator Name Role Phone Ricardo Contreras MD Primary Care Provider + Jalil Marie MD Unavailable [phone] Barbie Jorgensen APRN Unavailable [phone] Reason for Visit * Reason Comments PPD Placement Pt was in clinic for a tb skin test. Encounter Details Date Type Department Care Team (Latest Contact Info) Description 12/08/2022 2:15 PM EDT Clinical Support [facility] [address] [place] [id number] Toney Sanchez, SARA [address] [facility] [address], [address] [place] [address] Visit for TB skin test Social History [...] PM EDT documented as of this encounter Progress Notes * Mehreen Arce NP - 12/08/2022 2:15 PM EDT Negative PPD Left forearm No induration or redness. documented in this encounter Plan of Treatment Not on file documented as of this encounter Procedures Procedure Name Priority Date/Time Associated Diagnosis Comments SCANNED OTHER ORDERS RESULT 12/12/2022 11:15 AM EDT documented in this encounter Results * SCANNED OTHER ORDERS RESULT (12/12/2022 11:15 AM EDT) Narrative 12/12/2022 11:15 AM EDT Ordered by an unspecified provider. Generic Provider Onbase INPATIENT CONSUL T ORDERABLES documented in this encounter Visit Diagnoses Diagnosis Visit for TB skin test documented in this encounter Care Teams C D Still Operator Relationship Specialty Start Date End Date Ricardo Contreras MD [address] [place], [place] [id number] PCP - General Jalil Marie MD [address] [place] [address] Consulting Physician Hematology 04/12/22 Barbie Jorgensen APRN [address] [place] [address] Nurse Practitioner Oncology 06/21/22 documented as of this encounter
--- OUTSIDE RECORDS SUMMARY | 2024-08-18 13:09 | XMS_ITS | Encounter Summary ---
Author Organization [facility] nter Address [address] [place], [place] [id number] [place] [address] Care Team Providers Care Auto Body Man Name Role Phone Ricardo Contreras MD Primary Care Provider + Jalil Marie MD Unavailable [phone] Barbie Jorgensen APRN Unavailable [phone] Encounter Details Date Type Department Care Team (Latest Contact Info) Description 12/12/2022 Travel Social History Tobacco Use Types Packs/Day [...] on filedocumented in this encounter Care Teams Auto Body Man Relationship Specialty Start Date End Date Ricardo Contreras MD [address] [place] [address] PCP - General Jalil Marie MD [address] [place] [address] Consulting Physician Hematology 04/12/22 Barbie Jorgensen APRN [address] [place] [address] Nurse Practitioner Oncology 06/21/22 documented as of this encounter
--- OUTSIDE RECORDS SUMMARY | 2024-08-18 13:09 | XMS_ITS | Encounter Summary ---
Author Organization [facility] nter Address [address] [place], [place] [id number] [place] [address] Care Team Providers Care Generator Rebuilder Name Role Phone Ricardo Contreras MD Primary Care Provider + Jalil Marie MD Unavailable [phone] Barbie Jorgensen APRN Unavailable [phone] Encounter Details Date Type Department Care Team (Latest Contact Info) Description 10/25/2022 Travel Social History Tobacco Use Types Packs/Day [...] on filedocumented in this encounter Care Teams Generator Rebuilder Relationship Specialty Start Date End Date Ricardo Contreras MD [address] [place] [address] PCP - General Jalil Marie MD [address] [place] [address] Consulting Physician Hematology 04/12/22 Barbie Jorgensen APRN [address] [place] [address] Nurse Practitioner Oncology 06/21/22 documented as of this encounter
--- OUTSIDE RECORDS SUMMARY | 2024-08-18 13:09 | XMS_ITS | Encounter Summary ---
Author Organization [facility] Address [address] [place] [address] Care Team Providers Care Drafting Technician Name Role Phone Ricardo Contreras MD Primary Care Provider + Jalil Marie MD Unavailable [phone] Barbie Jorgensen APRN Unavailable [phone] Reason for Visit * Auth/Cert (Routine) Specialty Diagnoses / Procedures Referred By Contac t Referred To Contact Diagnoses Acquired absence of breast and absent nipple, right Breast asymmetry between oneida breast and reconstructed breast breast reconstruction Procedures MI REPLACEMENT TISSUE TEXTILE CHEMIST W/PERMANENT IMPLANT MI REVISION ANDRES-IMPLANT CAPSULE BREAST MI BREAST AUGMENTATION WITH IMPLANT TISSUE TEXTILE CHEMIST REMOVAL BREAST CAPSULOTOMY MAMMOPLASTY, AUGMENTATION Sunday Forrest MD [address] [place] [address] [facility] [address], [facility] [address] Referral ID Status Reason Start Date Expiration Date Visits Re quested Visits Authorized [id number] 1 1 Encounter Details Date Type Department Care Team (Late st Contact Info) Description 09/14/2022 11:00 AM EST - 09/14/2022 5:35 PM EST Surgery [facility] [address], [facility] [address] Sunday Forrest MD [address] [place] [id number] RIGHT TISSUE TEXTILE CHEMIST EXCHANGE FOR SALINE BREAST IMPLANT, RIGHT POCKET MODIFICATION WITH CAPSULORRAPHY AND CAPSULOTOMY [01915 (CPT??)] Social History Tobacco Use Types Packs/Day Years [...] Sign Reading Time Taken Comments Blood Pressure 126/74 09/14/2022 3:27 PM EST Pulse 74 09/14/2022 3:27 PM EST Temperature 36.7 ??C (98 ??F) 09/14/2022 3:27 PM EST Respiratory Rate 20 09/14/2022 3:27 PM EST Oxygen Saturation 100% 09/14/2022 3:27 PM EST Inhaled Oxygen Concentration - - Weight 97.7 kg (215 lb 6.2 oz) 09/14/2022 9:39 A M EST Height 162.6 cm (5' 4 ) 09/14/2022 9:39 AM EST Body Mass Index 36.97 09/14/2022 9:39 AM EST documented in this encounter Discharge Instructions * Discharge Instructions* Dinorah Gtz RN - 09/14/2022 3:06 PM EST USE INCENTIVE EVERY HOUR WHILE AWAKE ADULT DIET 1800 CALORIE DIET NO NSAIDS - ASPIRIN, ALEEVE, MORTRIN, NAPROXEN ECT. ICE PACK documented in this encounter Medications at Time of Discharge Medication Sig Dispensed Refills Start Date End Date atorvastatin (Lipitor) 80 MG tablet Take 1 tablet (80 mg) by mouth in the morning. Take morning of surgery citalopram (CeleXA) 40 MG tablet Take 1 tablet (40 mg) by mouth in the morning. Take morning of surgery 03/16/2022 ergocalciferol (Vitamin D2) 1.25 MG (14453 UT) capsule 1 capsule (50,000 Units) 1 (one) time per week. 01/18/2022 ferrous sulfate 324 MG EC tablet 1 tablet (324 mg) with breakfast. Hold morning of procedure glipiZIDE (Glucotrol) 5 MG tablet Take 2 tablets (10 mg) by mouth before breakfast and before evening meal. Hold morning of procedure hydrOXYzine HCl (Atarax) 25 MG tablet Take 1 tablet (25 mg) by mouth if needed in the morning and at bedtime. May take morning of procedure 01/18/2022 lisinopril 20 MG tablet Take 1 tablet [...] with evening meal. Hold morning of procedure nitroglycerin (Nitrostat) 0.[address] [...] the morning. Take morning of surgery 03/08/2022 oxyCODONE-acetaminoph en (Percocet) 7.5-325 MG tablet Take 1 tablet [...] (twelve) hours. May take morning of procedure semaglutide (Ozempic, 0.25 or 0.5 MG/DOSE,) 2 MG/1.5ML solution pen-injectorIndicatio ns:Type 2 Diabetes Mellitus 0.25 mg 1 (one) time per week. SUMAtriptan (Imitrex) 100 MG tablet Take 1 tablet (100 mg) by mouth. topiramate 50 MG tablet Take 50 mg by mouth in the morning and at bedtime. Take morning of procedure sulfamethoxazole-trim ethoprim (Bactrim DS) 800-160 MG tablet Take 1 tablet by mouth in the morning and at bedtime for 7 days. 14 tablet 09/14/2022 09/21/2022 amitriptyline (Elavil) 100 MG tablet Take 1 tablet (100 mg) by mouth at bedtime. Take night before surgery 03/16/2022 04/10/2023 anastrozole (Arimidex) 1 MG chemo tablet Take 1 tablet (1 mg total) by mouth in the morning. 30 tablet 11 06/21/2022 10/18/2022 Calcium 600+D 600-200 MG-UNIT tablet Take 1 tablet by mouth in the morning and at bedtime. 09/05/2021 04/10/2023 furosemide (Lasix) 20 MG tablet Take 1 tablet (20 mg) by mouth in the morning. Hold morning of procedure 02/07/2022 10/18/2022 rOPINIRole (Requip) 1 MG tablet Take 1 tablet (1 mg) by mouth at bedtime. Take night before surgery 04/03/2022 10/18/2022 SSD 1 % cream 1 application in the morning and at bedtime. Do apply morning of surgery 04/19/2022 10/25/2022 documented as of this encounter H&P Notes * Sunday Forrest MD - 09/14/2022 10:32 AM EST H&P reviewed. The patient was examined and there are no changes to the H&P. Source Note - Sunday Forrest MD - 09/08/2022 10:00 AM EST Subjective : Patient ID: Katherin Gomez is a 51 y.o. female. History of Present Illness: S/P delayed rt breast recon with TE/Alloderm, left mastopexy. Objective : Physical Exam Constitutional She appears well-developed and well-nourished. Eyes System normal. Pulmonary/Chest Effort normal. Skin Skin is warm. Psychiatric She has a normal mood and affect. Her behavior is normal. Rt TE in place. Medial aspect of rt breast mount with minimal mild erythema. Left breast smaller than rt recon breast. Assessment/Plan : 1. Acquired absence of breast and absent nipple, right 2. Breast asymmetry between oneida breast and reconstructed breast 3. Encounter to discuss breast reconstruction Pt happy with rt breast mount size. Wants left breast augm for symmetry. Prefers saline implants. Pt given Robertson Saline pt decision check list and questionnaire. Has 340ml in RT TE. Robertson saline smooth round high profile 330 to 400, 380 to 450ml for Rt rec breast.Possible rt pocket modification. Robertson smooth round MPP saline 225,250,275,300,325 for left breast augm, final size to be decided with sizers. Pt signed ASPS consents. documented in this encounter Miscellaneous Notes * Perioperative Nursing Note - Dinorah Gzt RN - 09/14/2022 3:09 PM EST FAMILY CALLED TO COME TO PACU * Op Note - Sunday Forrest MD - 09/14/2022 2:44 PM EST [facility] OPERATIVE REPORT - [id number] Date of Procedure: 09/14/2022 Name: KATHERIN GOMEZ : 1970 Sex: Female Admit Date: 09/14/2022 Room #: SURGERY POOL Bed: 2985 Admitting Physician: SUNDAY FORREST Attending Physician: SUNDAY FORREST Referring Physician: SUNDAY FORREST Proceduralist/Surgeon: Sunday Forrest MD, F.A.C.S. ([id number]) PRE-OPERATIVE DIAGNOSES: 1. Acquired absence of right breast after right mastectomy for breast cancer. 2. Asymmetry between reconstructed right breast and natural left breast. POST-OPERATIVE DIAGNOSES: 1. Acquired absence of right breast after right mastectomy for breast cancer. 2. Asymmetry between reconstructed right breast and natural left breast. PROCEDURES PERFORMED: 1. Exchange of right breast tissue charge master coordinator with saline breast implant for right breast reconstruction. 2. Right breast pocket modification with medial capsulotomy and lateral capsulorrhaphy. 3. Left breast augmentation with saline breast implant for symmetry. ASSISTANTS: Catrachito Farfan ESTIMATED BLOOD LOSS: 40 ml FINDINGS: See Post-Operative Diagnoses SPECIMEN REMOVED: None COMPLICATIONS: None ANESTHESIA: General endotracheal tube Jhon PECS II block IMPLANTS: Both implants are saline Robertson round smooth. On the right side the implant is high-profile 380 to 450 mL, has a reference #[id number], lot #[id number], serial #[id number]. It was inflated with 400 mL of saline. On the left side the implant is moderate plus profile a 275 to 330 mL, has a reference #[id number], lot #[id number], serial #[id number]. It was inflated with 300 mils of saline. INDICATIONS: Patient is a 51-year-old female who underwent right mastectomy for breast cancer and immediate breast reconstruction with tissue charge master coordinator and AlloDerm. Patient had the left mastopexy for symmetry. All treatment options risk and alternatives were discussed the patient in detail. All questions were answered. Patient requests breast reconstruction with saline implants. Possible capsulotomy and capsulorrhaphy was discussed with the patient. Patient signed ASP S consent TECHNIQUE: Patient was marked in the holding area and was placed supine on the operating room. After induction general anesthesia and bilateral PECS II block by anesthesia, both breasts and the whole abdomen were prepped and draped according to the usual sterile surgical fashion. A Foster catheter was placed. Both incisions were infiltrated with lidocaine 1% with epinephrine mixed with bupivacaine 0.5% with epinephrine. With a #15 blade the center of the right mastectomy incision was divided and Incision was advanced with the Bovie cautery. The AlloDerm layer was then divided. Tissue charge master coordinator was identified and with a #16 Angiocath, saline was aspirated from the tissue charge master coordinator. Tissue charge master coordinator was removed from the breast pocket. Breast pocket was irrigated and inspected. AlloDerm was incorporated. For better position of the breast implant, with the Bovie cautery medial capsulotomy was performed. Lateral capsulorrhaphy was performed in 2 layers with 2-0 strata fix PDS symmetric suture. Before capsulorrhaphy local tissues were cauterized with the Bovie cautery. Pocket irrigated with plain solution, double antibiotic solution, and Betadine solution. Smooth high-profile extra sizer used and inflated to 400 mils. After placement of the sizer the back of the bed was raised. Patient had nice contour and projection. With 15 blade the inferior 6 cm of the left breast vertical incision scar was divided. Incision was advanced with the Bovie cautery. The lateral edge of the left pectoralis major muscle was identified, subpectoral pocket was created with the Bovie cautery and the lighted retractor. Wound was irrigated multiple times meticulous hemostasis obtained with the Bovie cautery. Pocket irrigated with double antibiotic solution and Betadine solution. Round smooth moderate profile sizer was placed. Back of the bed was raised in different volumes of saline were placed in the left sizer. Patient was found to breast symmetry with 300 mL in the left breast sizer. Back of the bed was leveled sizers removed. At the deeper layer of both sides interrupted 0 PDS sutures were placed. There were not tied but held in place with hemostats. Breast prepped and draped again with Betadine solution and new sterile blue towels. Surgeon's and tourist information assistant's gloves were changed. Pocket again irrigated with double antibiotic and Betadine solution. Robertson smooth round moderate plus profile saline implant was placed on the left side, size 275 to 330 mL. On the right side a Robertson smooth round high-profile saline implant was placed 380 to 400 mL size. With a sterile transfer 300 mils of saline was placed in the left breast implant, and 400 mils of saline in the right breast. Patient's back was raised and symmetry in size and shape was observed. Again both sides were on both sides irrigated with double antibiotic and Betadine solution. On both sides deeper tissues were approximated in 2 layers with interrupted 2-0 PDS sutures. On the left side an extra layer with interrupted 0 PDS sutures was placed. Deep dermis on both sides was approximated with interrupted 2-0 Monocryl sutures. Skin on both sides was closed with a running 3-0 strata fix Monocryl spiral unidirectional suture. Both incisions were covered with Exofin, 2 layers of Telfa and Tegaderm. Breast dressing was completed with ABDs and a surgical bra. The patient tolerated the procedure well was extubated in the operating room and transferred to the recovery next condition. At the end of the case all instrument needle sponge counts were found to be correct. Foster catheter was removed in the operating room. Follow-up will be in the plastic surgery clinic tomorrow. PROBLEM LIST / RISK FACTORS BODY MASS INDEX: BMI: 238.53 Height: 25.2 Weight: 215.39lb [id number] by Sunday Forrest MD, F.A.C.S., 09/14/2022 14:44 EST (Approved) Created in [facility] documented in this encounter Plan of Treatment Not on file documented as of this encounter Procedures Procedure Name Priority Date/Time Associated Diagnosis Comments TISSUE EXAM Routine 09/14/2022 11:55 AM EST Acquired absence of breast and absent nipple, right Breast asymmetry between oneida breast and reconstructed breast MI BREAST AUGMENTATION WITH IMPLANT 09/14/2022 10:56 AM EST Acquired absence of breast and absent nipple, right Breast asymmetry between oneida breast and reconstructed breast MI REPLACEMENT TISSUE TEXTILE CHEMIST W/PERMANENT IMPLANT 09/14/2022 10:56 AM EST Acquired absence of breast and absent nipple, right Breast asymmetry between oneida breast and reconstructed breast POCT GLUCOSE PERFORMABLE Routine 09/14/2022 9:31 AM EST documented in this encounter Results * Tissue Exam (09/14/2022 11:55 AM EST) Final Diagnosis Tissue charge master coordinator, right breast, removal: -Breast prosthesis consistent with tissue charge master coordinator, gross diagnosis only. 09/15/2022 11:45 AM EST [facility] Case Report Surgical Pathology ?Case: [id number] ? Authorizing Provider: ??Sunday Forrest MD ?Collected: ? 09/14/2022 1155 ? Ordering Location: ? [facility] ?Received: ?09/15/2022 0647 ? Pathologist: ? Terrence Hernandez DO ? Specimen: ?Breast, Right, tissue charge master coordinator ? 09/15/2022 11:45 AM [facility] Clinical Information Pre-op diagnosis: breast reconstruction. Acquired absence of breast and absent nipple, right. Breast asymmetry between oneida breast and reconstructed breast. 09/15/2022 11:45 AM [facility] Gross Description Specimen is received fresh in a container labeled with patient's name and accession number, and right breast tissue charge master coordinator, is a white and clear plastic breast prosthesis measuring 14 x 12 x 3 cm. The outer surface is smooth. The word Robertson, [id number], [facility] 650 cc is imprinted on the back. The specimen is for gross diagnosis only. 09/15/2022 11:45 AM [facility] Microscopic Description Gross diagnosis only. 09/15/2022 11:45 AM [facility] Tissue Right breast structure / Unknown 09/14/2022 11:55 AM EST 09/15/2022 6:47 AM EST Comment:Pre-op diagnosis: breast reconstruction Sunday Forrest MD LAB PATHOLOGY ORDER DIALLO [facility] [address] [place] [address], * (ABNORMAL) POCT glucose (09/14/2022 9:31 AM EST) Glucose 270(H) 70 - 110 mg/dL 09/14/2022 9:50 AM [facility] Blood Capillary blood specimen / Unknown 09/14/2022 9:31 AM EST 09/14/2022 9:50 AM EST Sunday Forrest MD LAB POINT OF CARE T EST DOCKED DEVICE UNSOLICITED RESULTS [facility] [address] [place] [id number], documented in this encounter Visit Diagnoses Diagnosis Acquired absence of breast and absent nipple, right Breast asymmetry between oneida breast and reconstructed breast Disproportion of reconstructed breast Obesity (BMI 35.0-39.9 without comorbidity) Severe obesity (BMI 35.0-35.9 with comorbidity) Acquired absence of breast and absent nipple, right Breast asymmetry between oneida breast and reconstructed breast Disproportion of reconstructed breast documented in this encounter Administered Medications Inactive Administered Medications - up to 3 most recent administrations Medication Order MAR Action Action Date Dose Rate Site fentaNYL (Sublimaze) injection 50 mcg 50 mcg, Intravenous, Once as needed, severe pain (8-10), Starting on Nikki 09/14/22 at 1457, For 4 doses, Recovery (only), If ordered IV, slowly push over 3-5 minutes. gentamicin (Garamycin) injection As needed, Starting on Nikki 09/14/22 at 1200, Intraprocedure Given 09/14/2022 12:00 PM EST 160 mg Right Chest HYDROmorphone PF (Dilaudid) injection 0.5 mg 0.5 mg, Intravenous, Once as needed, severe pain (8-10), Starting on Nikki 09/14/22 at 1457, For 4 doses, Recovery (only) lactated Ringer's infusion 30 mL/hr, Intravenous, Once in OR, Starting on Nikki 09/14/22 at 1003, For 1 dose, Preprocedure, To KVO New Bag 09/14/2022 10:19 AM EST 30 mL/hr 30 mL/hr lidocaine-EPINEPHrine (Xylocaine W/EPI) 1 %-1:549180 injection As needed, Starting on Nikki 09/14/22 at 1159, Intraprocedure Given 09/14/2022 11:59 AM EST 10 mL nozin nasal floor tiling professional popswab 3 application 3 application., Nasal, foam tank laminator, On Nikki 09/14/22 at 1000, For 1 dose, Preprocedure, Apply each dose to bilateral nares x 3., Indications: Pre op Given 09/14/2022 9:46 AM EST 3 application. ondansetron (Zofran) injection 4 mg 4 mg, Intravenous, Every 15 min PRN, nausea, Starting on Nikki 09/14/22 at 1457, For 1 dose, Recovery (only) scopolamine (Transderm-Scop) patch 1 patch 1 patch, Transdermal, Administer over 24 Hours, Once, On Nikki 09/14/22 at 1000, For 1 dose, Preprocedure, Apply to clean, hairless skin behind the ear. When used for post-operative nausea and vomiting, remove 24 hours after applied. Apply to hairless area of skin behind the ear. Medication Applied 09/14/2022 10:00 AM EST 1 patch Behind Right Ear sodium chloride 0.9 % flush 1 mL 1 mL, Intravenous, Every 8 hours PRN, line care, Starting on Nikki 09/14/22 at 0939, Preprocedure sodium chloride 0.9 % irrigation solution As needed, Starting on Nikki 09/14/22 at 1200, Intraprocedure Given 09/14/2022 12:00 PM EST 2,000 mL vancomycin (Vancocin) vial for injection As needed, Starting on Nikki 09/14/22 at 1200, Intraprocedure Given 09/14/2022 12:00 PM EST 2 g documented in this encounter Active and Recently Administered Medications Times are shown in EST. Scheduled Medication Order 09/12/2022 09/13/2022 09/14/2022 ceFAZolin (Ancef) injection 2 g (COMPLETED)(Linked Group 1) 2 g, Intravenous, Once, On Nikki 09/14/22 at 1000, For 1 dose, Preprocedure, Administer within 60 minutes of incision., Suspected Indication (Select all that apply): Surgical Prophylaxis 1111 (Given - Provid er: Meek Shi CRNA) clindamycin 900 mg in sodium chloride 0.9 % 50 mL IVPB (COMPLETED)(Linked Group 1) 900 mg, Intravenous, at 100 mL/hr, Administer over 30 Minutes, Once, On Nikki 09/14/22 at 1000, For 1 dose, Preprocedure, Administer within 60 minutes of incision. [id number] Administration System - ensure contents are activated and reconstituted prior to administration., Suspected Indication (Select all that apply): Surgical Prophylaxis 1106 (New Bag - Prov ider: Meek Shi CRNA)1437 (Stopped - Provider: Meek Shi CRNA) lactated Ringer's infusion (COMPLETED) 30 mL/hr, Intravenous, Once in OR, Starting on Nikki 09/14/22 at 1003, For 1 dose, Preprocedure, To KVO 1019 (New Bag - Prov ider: Darrius Coker RN) nozin nasal floor tiling professional popswab 3 application (COMPLETED) 3 application., Nasal, foam tank laminator, On Nikki 09/14/22 at 1000, For 1 dose, Preprocedure, Apply each dose to bilateral nares x 3., Indications: Pre op 0946 (Given - Provid er: Darrius Coker RN) scopolamine (Transderm-Scop) patch 1 patch 1 patch, Transdermal, Administer over 24 Hours, Once, On Nikki 09/14/22 at 1000, For 1 dose, Preprocedure, Apply to clean, hairless skin behind the ear. When used for post-operative nausea and vomiting, remove 24 hours after applied. Apply to hairless area of skin behind the ear. 1000 (Medication Erin lied - Provider: Darrius Coker RN)1542 (Due: Medication Removed - Provider: Automatic Discharge Provider - Comment: Time automatically adjusted from order being discontinued) PRN Medication Order 09/12/2022 09/13/2022 09/14/2022 fentaNYL (Sublimaze) injection 50 mcg 50 mcg, Intravenous, Once as needed, severe pain (8-10), Starting on Nikki 09/14/22 at 1457, For 4 doses, Recovery (only), If ordered IV, slowly push over 3-5 minutes. gentamicin (Garamycin) injection (CANCELED) As needed, Starting on Nikki 09/14/22 at 1200, Intraprocedure 1200 (Given - Provid er: Sunday Forrest MD - Comment: given on the field for irrigation, not given as an intramuscular injection) HYDROmorphone PF (Dilaudid) injection 0.5 mg 0.5 mg, Intravenous, Once as needed, severe pain (8-10), Starting on Nikki 09/14/22 at 1457, For 4 doses, Recovery (only) HYDROmorphone PF (Dilaudid) injection 1 mg 1 mg, Intravenous, Every 3 hours PRN, severe pain (8-10), Starting on Nikki 09/14/22 at 1447, Recovery (only) lidocaine-EPINEPHrine (Xylocaine W/EPI) 1 %-1:149652 injection (CANCELED) As needed, Starting on Nikki 09/14/22 at 1159, Intraprocedure 1159 (Given - Provid er: Sunday Forrest MD) ondansetron (Zofran) injection 4 mg 4 mg, Intravenous, Every 15 min PRN, nausea, Starting on Nikki 09/14/22 at 1457, For 1 dose, Recovery (only) ondansetron (Zofran) injection 4 mg 4 mg, Intravenous, Every 6 hours PRN, nausea, Starting on Nikki 09/14/22 at 1447, Recovery (only) oxyCODONE-acetaminophen (Percocet) 5-325 MG per tablet 1 tablet 1 tablet, Oral, Every 4 hours PRN, mild pain (1-4), Starting on Nikki 09/14/22 at 1447, Recovery (only) oxyCODONE-acetaminophen (Percocet) 5-325 MG per tablet 2 tablet 2 tablet, Oral, Every 4 hours PRN, moderate pain (5-7), Starting on Nikki 09/14/22 at 1447, Recovery (only) sodium chloride 0.9 % flush 1 mL(Linked Group 2) 1 mL, Intravenous, Every 8 hours PRN, line care, Starting on Nikki 09/14/22 at 0939, Preprocedure sodium chloride 0.9 % irrigation solution (CANCELED) As needed, Starting on Nikki 09/14/22 at 1200, Intraprocedure 1200 (Given - Provid er: Sunday Forrest MD) vancomycin (Vancocin) vial for injection (CANCELED) As needed, Starting on Nikki 09/14/22 at 1200, Intraprocedure 1200 (Given - Provid er: Sunday Forrest MD) Linked Groups Order Group 1: ceFAZolin (Ancef) injection 2 g (COMPLETED)Jump to med 2 g, Intravenous, Once, On Nikki 09/14/22 at 1000, For 1 dose, Preprocedure, Administer within 60 minutes of incision., Suspected Indication (Select all that apply): Surgical Prophylaxis And clindamycin 900 mg in sodium chloride 0.9 % 50 mL IVPB (COMPLETED)Jump to med 900 mg, Intravenous, at 100 mL/hr, Administer over 30 Minutes, Once, On Nikki 09/14/22 at 1000, For 1 dose, Preprocedure, Administer within 60 minutes of incision. [id number] Administration System - ensure contents are activated and reconstituted prior to administration., Suspected Indication (Select all that apply): Surgical Prophylaxis Group 2: Insert peripheral IV (CANCELED) Once, On Nikki 09/14/22 at 0940, For 1 occurrence, Routine, Preprocedure And Saline lock IV (CANCELED) Once, On Nikki 09/14/22 at 0940, For 1 occurrence, Routine, Preprocedure And sodium chloride 0.9 % flush 1 mLJump to med 1 mL, Intravenous, Every 8 hours PRN, line care, Starting on Nikki 09/14/22 at 0939, Preprocedure documented in this encounter Care Teams Drafting Technician Relationship Specialty Start Date End Date Ricardo Contreras MD [address] [place] [address] PCP - General Jalil Marie MD [address] [place] [address] Consulting Physician Hematology 04/12/22 Barbie Jorgensen APRN [address] [place] [address] Nurse Practitioner Oncology 06/21/22 documented as of this encounter
--- OUTSIDE RECORDS SUMMARY | 2024-08-18 13:09 | XMS_ITS | Encounter Summary ---
Author Organization [facility] nter Address [address] [place], [place] [id number] [place] [address] Care Team Providers Care Cleaner Industrial Name Role Phone Ricardo Contreras MD Primary Care Provider + Jalil Marie MD Unavailable [phone] Barbie Jorgensen APRN Unavailable [phone] Encounter Details Date Type Department Care Team (Latest Contact Info) Description 10/11/2022 Travel Social History Tobacco Use Types Packs/Day [...] on filedocumented in this encounter Care Teams Cleaner Industrial Relationship Specialty Start Date End Date Ricardo Contreras MD [address] [place] [address] PCP - General Jalil Marie MD [address] [place] [address] Consulting Physician Hematology 04/12/22 Barbie Jorgensen APRN [address] [place] [address] Nurse Practitioner Oncology 06/21/22 documented as of this encounter
--- OUTSIDE RECORDS SUMMARY | 2024-08-18 13:09 | XMS_ITS | Encounter Summary ---
Author Organization [facility] nter Address [address] [place] [address] Care Team Providers Care Periodontal Assistant Name Role Phone Ricardo Contreras MD Primary Care Provider + Jalil Marie MD Unavailable [phone] Barbie Jorgensen APRN Unavailable [phone] Encounter Details Date Type Department Care Team (Late st Contact Info) Description 10/04/2022 8:30 AM EST Office Visit [facility] [address] [place] [address] Gregory Forrest MD [address] [place] [address] Acquired absence of breast and absent [...] Progress Notes * Gregory Forrest MD - 10/04/2022 8:30 AM EST Subjective : Patient ID: Catie Martinez is a 51 y.o. female. History of Present Illness: S/P exchange rt TE for saline implant, left breast augm for symmetry with saline implant.?? Objective : Physical Exam Constitutional She appears well-developed and well-nourished. Pulmonary/Chest Effort normal. Skin Skin is warm. Psychiatric She has a normal mood and affect. Her behavior is normal. Rt breast incision healing well. Sutures present, no erythema. Small drainage. Assessment/Plan : 1. Acquired absence of breast and absent nipple, right Bactroban BID. Weekly f/up. documented in this encounter Plan of Treatment Not on file documented as of this encounter Visit Diagnoses Diagnosis Acquired absence of breast and absent nipple, right- Primary documented in this encounter Care Teams Periodontal Assistant Relationship Specialty Start Date End Date Ricardo Contreras MD [address] [place] [address] PCP - General Jalil Marie MD [address] [place] [address] Consulting Physician Hematology 04/12/22 Barbie Jorgensen APRN [address] [place] [address] Nurse Practitioner Oncology 06/21/22 documented as of this encounter
--- OUTSIDE RECORDS SUMMARY | 2024-08-18 13:09 | XMS_ITS | Encounter Summary ---
Author Organization [facility] nter Address [address] [place] [address] Care Team Providers Care Paper Reeler Name Role Phone Ricardo Contreras MD Primary Care Provider + Jalil Marie MD Unavailable [phone] Barbie Jorgensen APRN Unavailable [phone] Reason for Visit * Auth/Cert (Routine) Specialty Diagnoses / Procedures Referred By Contac t Referred To Contact Diagnoses Acquired absence of breast and absent nipple, right Breast asymmetry between [place] breast and reconstructed breast breast reconstruction Procedures SD REPLACEMENT TISSUE FIELD CROP FARMWORKER W/PERMANENT IMPLANT SD REVISION ANDRES-IMPLANT CAPSULE BREAST SD BREAST AUGMENTATION WITH IMPLANT TISSUE FIELD CROP FARMWORKER REMOVAL BREAST CAPSULOTOMY MAMMOPLASTY, AUGMENTATION Sunday Forrest MD [address] [place] [address] [facility] [address], [facility] [place] [address] Referral ID Status Reason Start Date Expiration Date Visits Re quested Visits Authorized [id number] 1 1 Encounter Details Date Type Department Care Team (Latest Contact Info) Description 09/14/2022 8:51 AM EST - 09/14/2022 3:42 PM EST Hospital Encounter [facility] [address] [place] [address] Sunday Forrest MD [address] [place] [address] Acquired absence of breast and absent nipple, right; Breast asymmetry between [place] breast and reconstructed breast Discharge Disposition: Home or Self Care Social [...] surgery 03/16/2022 ergocalciferol (Vitamin D2) 1.25 MG (77981 UT) capsule 1 capsule (50,000 Units) 1 [...] absent nipple, right 2. Breast asymmetry between [place] breast and reconstructed breast 3. Encounter to discuss breast reconstruction Pt happy with rt breast mount size. Wants left breast augm for symmetry. Prefers saline implants. Pt given [place] Saline pt decision check list and questionnaire. Has 340ml in RT TE. Newell saline smooth round high profile 330 to 400, 380 to 450ml for Rt rec breast.Possible rt pocket modification. Newell smooth round MPP saline 225,250,275,300,325 for left breast augm, final size to be decided with sizers. Pt signed ASPS consents. documented in this encounter Miscellaneous Notes * Perioperative Nursing Note - Dinorah Gtz RN - 09/14/2022 3:09 PM EST FAMILY CALLED TO COME TO PACU * Op Note - Sunday Forrest MD - 09/14/2022 2:44 PM EST [facility] OPERATIVE REPORT - [id number] Date of Procedure: 09/14/2022 Name: KATHERIN GOMEZ : 1970 Sex: Female Admit Date: 09/14/2022 Room #: SURGERY POOL Bed: 2985 Admitting Physician: SUNDAY FORREST Attending Physician: SUNDAY FORREST Referring Physician: SUNDAY FORREST Proceduralist/Surgeon: Sunday Forrest MD, F.A.C.S. ([id number]) PRE-OPERATIVE DIAGNOSES: 1. Acquired absence of right breast after right mastectomy for breast cancer. 2. Asymmetry between reconstructed right breast and natural left breast. POST-OPERATIVE DIAGNOSES: 1. Acquired absence of right breast after right mastectomy for breast cancer. 2. Asymmetry between reconstructed right breast and natural left breast. PROCEDURES PERFORMED: 1. Exchange of right breast tissue engineer steam with saline breast implant for right breast reconstruction. 2. Right breast pocket modification with medial capsulotomy and lateral capsulorrhaphy. 3. Left breast augmentation with saline breast implant for symmetry. ASSISTANTS: Catrachito Farfan ESTIMATED BLOOD LOSS: 40 ml FINDINGS: See Post-Operative Diagnoses SPECIMEN REMOVED: None COMPLICATIONS: None ANESTHESIA: General endotracheal tube Jhon PECS II block IMPLANTS: Both implants are saline Newell round smooth. On the right side the implant is high-profile 380 to 450 mL, has a reference #[id number], lot #[id number], serial #[id number]. It was inflated with 400 mL of saline. On the left side the implant is moderate plus profile a 275 to 330 mL, has a reference #[id number], lot #[id number], serial #[id number]. It was inflated with 300 mils of saline. INDICATIONS: Patient is a 51-year-old female who underwent right mastectomy for breast cancer and immediate breast reconstruction with tissue engineer steam and AlloDerm. Patient had the left mastopexy [...] The AlloDerm layer was then divided. Tissue engineer steam was identified and with a #16 Angiocath, saline was aspirated from the tissue engineer steam. Tissue engineer steam was removed from the breast pocket. Breast [...] and new sterile blue towels. Surgeon's and cement tester assistant's gloves were changed. Pocket again irrigated with double antibiotic and Betadine solution. Newell smooth round moderate plus profile saline implant was placed on the left side, size 275 to 330 mL. On the right side a Newell smooth round high-profile saline implant was placed [...] INDEX: BMI: 238.53 Height: 25.2 Weight: 215.39lb [id number] by Sunday Forrest MD, F.A.C.S., 09/14/2022 14:44 EST (Approved) Created in [facility] documented in this encounter Plan of Treatment Not on file documented as of this encounter Procedures Procedure Name Priority Date/Time Associated Diagnosis Comments TISSUE EXAM Routine 09/14/2022 11:55 AM EST Acquired absence of breast and absent nipple, right Breast asymmetry between [place] breast and reconstructed breast SD BREAST AUGMENTATION WITH IMPLANT 09/14/2022 10:56 AM EST Acquired absence of breast and absent nipple, right Breast asymmetry between [place] breast and reconstructed breast SD REPLACEMENT TISSUE FIELD CROP FARMWORKER W/PERMANENT IMPLANT 09/14/2022 10:56 AM EST Acquired absence of breast and absent nipple, right Breast asymmetry between [place] breast and reconstructed breast POCT GLUCOSE PERFORMABLE Routine 09/14/2022 9:31 AM EST documented in this encounter Results * Tissue Exam (09/14/2022 11:55 AM EST) Final Diagnosis Tissue engineer steam, right breast, removal: -Breast prosthesis consistent with tissue engineer steam, gross diagnosis only. 09/15/2022 11:45 AM EST [facility] Case Report Surgical Pathology ?Case: [id number] ? Authorizing Provider: ??Sunday Forrest MD ?Collected: ? 09/14/2022 1155 ? Ordering Location: ? [facility] ?Received: ?09/15/2022 0647 ? Pathologist: ? Terrence Hernandez DO ? Specimen: ?Breast, Right, tissue engineer steam ? 09/15/2022 11:45 AM [facility] Clinical Information Pre-op diagnosis: breast reconstruction. Acquired absence of breast and absent nipple, right. Breast asymmetry between [place] breast and reconstructed breast. 09/15/2022 11:45 AM [facility] Gross Description Specimen is received fresh in a container labeled with patient's name and accession number, and right breast tissue engineer steam, is a white and clear plastic breast prosthesis measuring 14 x 12 x 3 cm. The outer surface is smooth. The word Newell, [id number], [facility] 650 cc is imprinted on the back. The specimen is for gross diagnosis only. 09/15/2022 11:45 AM [facility] Microscopic Description Gross diagnosis only. 09/15/2022 11:45 AM [facility] Tissue Right breast structure / Unknown 09/14/2022 11:55 AM EST 09/15/2022 6:47 AM EST Comment:Pre-op diagnosis: breast reconstruction Sunday Forrest MD LAB PATHOLOGY ORDER DIALLO [facility] [address] [place] [address], * (ABNORMAL) POCT glucose (09/14/2022 9:31 AM EST) Glucose 270(H) 70 - 110 mg/dL 09/14/2022 9:50 AM EST [facility] Blood Capillary blood specimen / Unknown 09/14/2022 9:31 AM EST 09/14/2022 9:50 AM EST Sunday Forrest MD LAB POINT OF CARE T EST DOCKED DEVICE UNSOLICITED RESULTS [facility] [address] [place] [address], documented in this encounter Visit Diagnoses Diagnosis Acquired absence of breast and absent nipple, right Breast asymmetry between [place] breast and reconstructed breast Disproportion of reconstructed breast Obesity (BMI 35.0-39.9 without comorbidity) Severe obesity (BMI 35.0-35.9 with comorbidity) documented in this encounter Administered Medications Inactive Administered Medications - up to 3 most recent administrations Medication Order MAR Action Action Date Dose Rate Site fentaNYL (Sublimaze) injection 50 mcg 50 mcg, Intravenous, Once as needed, severe pain (8-10), Starting on Nikki 09/14/22 at 1457, For 4 doses, Recovery (only), If ordered IV, slowly push over 3-5 minutes. HYDROmorphone PF (Dilaudid) injection 0.5 mg 0.5 mg, Intravenous, Once as needed, severe pain (8-10), Starting on Nikki 09/14/22 at 1457, For 4 doses, Recovery (only) lactated Ringer's infusion 30 mL/hr, Intravenous, Once in OR, Starting on Nikki 09/14/22 at 1003, For 1 dose, Preprocedure, To KVO New Bag 09/14/2022 10:19 AM EST 30 mL/hr 30 mL/hr nozin nasal escort blind popswab 3 application 3 application., Nasal, alley worker, On Sun09/14/22 at 1000, For 1 dose, Preprocedure, Apply [...] at 0939, Preprocedure documented in this encounter Active and Recently [...] Preprocedure, Administer within 60 minutes of incision. [id number] Administration System - ensure contents are activated [...] 1019 (New Bag - Prov ider: Darrius Coker, HEATHER) nozin nasal escort blind popswab 3 application (COMPLETED) 3 application., Nasal, alley worker, On Nikki 09/14/22 at 1000, For 1 [...] 1447, Recovery (only) lidocaine-EPINEPHrine (Xylocaine W/EPI) 1 %-1:815572 injection (CANCELED) As needed, Starting on Nikki [...] Preprocedure, Administer within 60 minutes of incision. Xvap3Deq Administration System - ensure contents are activated [...] Preprocedure documented in this encounter Care Teams Paper Reeler Relationship Specialty Start Date End Date Ricardo Contreras MD [address] [place] [address] PCP - General Jalil Marie MD [address] [place] [address] Consulting Physician Hematology 04/12/22 Barbie Jorgensen APRN [address] [place] [address] Nurse Practitioner Oncology 06/21/22 documented as of this encounter
--- OUTSIDE RECORDS SUMMARY | 2024-08-18 13:10 | XMS_ITS | Encounter Summary ---
Author Organization [facility] nter Address [address] [place], [place] [address] [place] [address] Care Team Providers Care Feather Curling Machine Operator Name Role Phone Ricardo Contreras MD Primary Care Provider + Jalil Marie MD Unavailable [phone] Barbie Jorgensen APRN Unavailable [phone] Reason for Referral * Imaging (Routine) - Closed Specialty Diagnoses / Procedures Referred By Contac t Referred To Contact Radiology Diagnoses Other intervertebral disc degeneration, lumbar region Procedures [place] lumbar [place] [address] [place] [address] Referral ID Status Reason Start Date Expiration Date Visits Re quested Visits Authorized [id number] Closed 06/26/2022 12/23/2022 1 1 Reason for Visit * Imaging (Routine) - Closed Specialty Diagnoses / Procedures Referred By Contac t Referred To Contact Radiology Diagnoses Other intervertebral disc degeneration, lumbar region Procedures [place] lumbar [place] [address] [place] [address] Referral ID Status Reason Start Date Expiration Date Visits Re quested Visits Authorized [id number] Closed 06/26/2022 12/23/2022 1 1 Encounter Details Date Type Department Care Team (Latest Contact Info) Description 08/17/2022 4:50 PM EST - 08/17/2022 11:59 PM EST Hospital Encounter [facility] [address], [address] [place] [address] Other intervertebral disc degeneration, lumbar region Discharge Disposition: Home or Self Care Social [...] suspected to have Coronavirus/COVID-19? No / Unsure 08/17/2022 4:49 PM EST documented as of this encounter Medications at Time of Discharge Medication Sig Dispensed Refills Start Date End Date atorvastatin (Lipitor) 80 MG tablet Take 1 tablet (80 mg) by mouth in the morning. Take morning of surgery citalopram (CeleXA) 40 MG tablet Take 1 tablet (40 mg) by mouth in the morning. Take morning of surgery 03/16/2022 ergocalciferol (Vitamin D2) 1.25 MG (54558 UT) capsule 1 capsule (50,000 Units) 1 [...] 04/19/2022 10/25/2022 documented as of this encounter Plan of Treatment Not on file documented as of this encounter Procedures Procedure Name Priority Date/Time Associated Diagnosis Comments CT LUMBAR SPINE WO IV CONTRAST Routine 08/17/2022 5:07 PM EST Other intervertebral disc degeneration, lumbar region documented in this encounter Results * CT lumbar spine wo IV contrast (08/17/2022 5:07 PM EST) Anatomical Region Laterality Modality Spine, L-spine Computed Tomogra phy 08/17/2022 5:08 PM EST Impressions 08/17/2022 5:55 PM EST No evidence of acute fracture of the lumbar spine. Degenerative change as mentioned. Report Sign Date: 08/17/2022 5:55 PM, Electronically Signed By: Kiran Anderson 08/17/2022 5:55 PM EST PROCEDURE: CT LUMBAR SPINE WO IV CONTRAST: 08/17/2022 Radiation Optimization: All CT scans at this facility use at least one of these dose optimization techniques: automated exposure control; mA and/or kV adjustment per patient size (includes targeted exams where dose is matched to clinical indication); or iterative reconstruction. CLINICAL INFORMATION: m51.36 Alignment of the lumbar spine is anatomic. There is no evidence of acute fracture, or dislocation. The height of the vertebral bodies are well preserved. Multilevel degenerative disk disease is present most notable at L1-L2 and L2-L3. There is multilevel degenerative end-plate spurring and osteophyte formation along the anterior margin of the lumbar spine. There is mild, bilateral facet arthropathy at the lumbosacral junction. There is no definite CT evidence of a focal, high- grade stenosis of the lumbar spine. The included retroperitoneal soft tissues are unremarkable in appearance. Procedure Note Kiran Herman MD - 08/17/2022 PROCEDURE: CT LUMBAR SPINE WO IV CONTRAST: 08/17/2022 Radiation Optimization: All CT scans at this facility use at least one ofthese dose optimization techniques: automated exposure control; mA and/orkV adjustment per patient size (includes targeted exams where dose ismatched to clinical indication); or iterative reconstruction. CLINICAL INFORMATION: m51.36 Alignment of the lumbar spine is anatomic. There is no evidence of acutefracture, or dislocation. The height of the vertebral bodies are wellpreserved. Multilevel degenerative disk disease is present most notable atL1-L2 and L2-L3. There is multilevel degenerative end-plate spurring andosteophyte formation along the anterior margin of the lumbar spine. Thereis mild, bilateral facet arthropathy at the lumbosacral junction. There isno definite CT evidence of a focal, high-grade stenosis of the lumbarspine. The included retroperitoneal soft tissues are unremarkable inappearance. IMPRESSION: No evidence of acute fracture of the lumbar spine. Degenerative change asmentioned. Report Sign Date: 08/17/2022 5:55 PM, Electronically Signed By: Anne CAREY Vida Drake NP IMG CT PROCEDURES documented in this encounter Visit Diagnoses Diagnosis Other intervertebral disc degeneration, lumbar region documented in this encounter Care Teams Feather Curling Machine Operator Relationship Specialty Start Date End Date Ricardo Contreras MD [address] [place] [address] PCP - General Jalil Marie MD [address] [place] [address] Consulting Physician Hematology 04/12/22 Barbie Jorgensen APRN [address] [place] [address] Nurse Practitioner Oncology 06/21/22 documented as of this encounter
--- OUTSIDE RECORDS SUMMARY | 2024-08-18 13:10 | XMS_ITS | Encounter Summary ---
Author Organization [facility]ter Address [address] [place] [address] Care Team Providers Care Title Agent Name Role Phone Ricardo Contreras MD Primary Care Provider + Jalil Marie MD Unavailable [phone] Barbie Jorgensen APRN Unavailable [phone] Encounter Details Date Type Department Care Team (Latest Contact Info) Description 08/11/2022 9:30 AM EST Office Visit [facility] [address] [place] [address] Gregory Forrest MD [address] [place] [address] Acquired absence of breast and absent nipple, right (Primary Dx); Breast asymmetry between [place] breast and reconstructed breast; Encounter to discuss breast reconstruction Social History Tobacco Use Types Packs/Day Years [...] suspected to have Coronavirus/COVID-19? No / Unsure 08/11/2022 9:25 AM EST documented as of this encounter Progress Notes * Gregory Forrest MD - 08/11/2022 9:30 AM EST Subjective : Patient ID: Catie [...] absent nipple, right 2. Breast asymmetry between [place] breast and reconstructed breast 3. Encounter to discuss breast reconstruction Pt happy with rt breast mount size. Wants left breast augm for symmetry. Prefers saline implants. Pt given [place] Saline pt decision check list and questionnaire. Has 340ml in RT TE. [place] saline smooth round high profile 330 to 400, 380 to 450ml for Rt rec breast.Possible rt pocket modification. [place] smooth round MPP saline 225,250,275,300,325 for left breast augm, final size to be decided with sizers. Pt signed ASPS consents. documented in this encounter Miscellaneous Notes * Addendum Note - Gregory Forrest MD - 08/11/2022 9:30 AM ESTAddended by: GREGORY FORREST on: 08/11/2022 10:02 AM Modules accepted: Orders, SmartSet * Addendum Note - Chris Quintanilla - 08/11/2022 9:30 AM ESTAddended by: CHRIS QUINTANILLA on: 08/11/2022 01:57 PM Modules accepted: Orders documented in this encounter Plan of Treatment Scheduled Orders Name Type Priority Associated Diagnoses Orde r Schedule CBC Lab Routine Acquired absence of breast and absent nipple, right Breast asymmetry between [place] breast and reconstructed breast Encounter to discuss breast reconstruction Expected: 08/11/2022 (Approximate), Expires: 08/11/2023 Basic metabolic panel Lab Routine Acquired absence of breast and absent nipple, right Breast asymmetry between [place] breast and reconstructed breast Encounter to discuss breast reconstruction Expected: 08/11/2022 (Approximate), Expires: 08/11/2023 documented as of this encounter Visit Diagnoses Diagnosis Acquired absence of breast and absent nipple, right- Primary Breast asymmetry between [place] breast and reconstructed breast Disproportion of reconstructed breast Encounter to discuss breast reconstruction documented in this encounter Care Teams Title Agent Relationship Specialty Start Date End Date Ricardo Contreras MD [address] [place] [address] PCP - General Jalil Marie MD [address] [place] [address] Consulting Physician Hematology 04/12/22 Barbie Jorgensen APRN [address] [place] [address] Nurse Practitioner Oncology 06/21/22 documented as of this encounter
--- OUTSIDE RECORDS SUMMARY | 2024-08-18 13:10 | XMS_ITS | Encounter Summary ---
Author Organization [facility] nter Address [address] [place], [place] [id number] [place], [place] [address] Care Team Providers Care Electrical Instrument Maker Name Role Phone Ricardo Contreras MD Primary Care Provider + Jalil Marie MD Unavailable [phone] Barbie Jorgensen APRN Unavailable [phone] Encounter Details Date Type Department Care Team (Latest Contact Info) Description 08/23/2022 9:30 AM EST - 08/23/2022 11:59 PM EST Hospital Encounter [facility] [address] 3rd [place] [id number] Discharge Disposition: Home or Self Care Social [...] suspected to have Coronavirus/COVID-19? No / Unsure 08/23/2022 2:24 PM EST documented as of this encounter [...] surgery 03/16/2022 ergocalciferol (Vitamin D2) 1.25 MG (36207 UT) capsule 1 capsule (50,000 Units) 1 [...] 04/19/2022 10/25/2022 documented as of this encounter Miscellaneous Notes * Preprocedure Instructions - Kenyatta Pineda RN - 08/23/2022 9:30 AM EST Please enter on the 3rd floor clinic building from the 3rd floor of the parking garage. Please feelfree to ask an employee for assistance. One person is allowed with the patient in Preop or Recoveryunless patient is under 18yrs of age or special needs patient. Each patient must have someone to drive him/her home when discharged. You may be sleepy, tired,or not your normal self. Please make arran gements for someone to help you at home. Instructions for Patient: No Lotion or Powder on Hands/Arms/Chest, No Make-Up, Nail Honduran, Jewelry, Hair Pins, No Smoking/Tobacco Products after Midnight, Please [place] your Teeth, May Have Clear Liquids 2 Hours Before, Wear Loose, Comfortable Clothing, Do Not Take Any Diabetes Medicine, No Food/Candy/Gum 8 Hours Prior to Arrival, No Deodorant in Surgical Area, Do Not Take Maalox Type Medicine and Take Your Morning Meds Wi th Water Patient Verbalizes Understanding of all above instructions given: Yes Timeout: Date/Time of Procedure: 08/24/22 arrival time 0700am given to pt. Correct Person: Yes Correct Site: Yes Correct Procedure:Yes Cultural/Spiritual: Are There Cultural/Spiritual Practices That We Should Know About? No. Please wear a mask or face covering. Please bring your insurance card and photo ID. If you have any questions or concerns, please call preadmit testing at [phone],our office hours are M-F 08:30am-4:30pm Date of Last Colonoscopy: Never documented in this encounter Plan of Treatment Not on file documented as of this encounter Visit Diagnoses Not on filedocumented in this encounter Care Teams Electrical Instrument Maker Relationship Specialty Start Date End Date Ricardo Contreras MD [address] [place] [address] PCP - General Jalil Marie MD [address] [place] [address] Consulting Physician Hematology 04/12/22 Barbie Jorgensen APRN [address] [place] [address] Nurse Practitioner Oncology 06/21/22 documented as of this encounter
--- OUTSIDE RECORDS SUMMARY | 2024-08-18 13:10 | XMS_ITS | Encounter Summary ---
Author Organization [facility] nter Address [address] [id number] Care Team Providers Care Party Coordinator Name Role Phone Ricardo Contreras MD Primary Care Provider + Jalil Marie MD Unavailable [phone] Barbie Jorgensen APRN Unavailable [phone] Encounter Details Date Type Department Care Team (Late st Contact Info) Description 09/08/2022 10:00 AM EST Consult [facility] [address] [place] [address] Gregory Forrest MD [address] [place] [address] Acquired absence of breast and absent nipple, right (Primary Dx); Breast asymmetry between alutiiq breast and reconstructed breast; Encounter to discuss [...] suspected to have Coronavirus/COVID-19? No / Unsure 09/08/2022 11:13 AM EST documented as of this encounter Progress Notes * Gregory Forrest MD - 09/08/2022 10:00 AM EST Subjective : Patient ID: Catie [...] absent nipple, right 2. Breast asymmetry between alutiiq breast and reconstructed breast 3. Encounter to discuss breast reconstruction Pt happy with rt breast mount size. Wants left breast augm for symmetry. Prefers saline implants. Pt given [place] Saline pt decision check list and questionnaire. Has 340ml in RT TE. [place] saline smooth round high profile 330 to 400, 380 to 450ml for Rt rec breast.Possible rt pocket modification. [place] smooth round MPP saline 225,250,275,300,325 for left breast augm, final size to be decided with sizers. Pt signed ASPS consents. documented in this encounter Miscellaneous Notes * Addendum Note - Gregory Forrest MD - 09/08/2022 10:00 AM ESTAddended by: GREGORY FORREST on: 09/08/2022 11:44 AM Modules accepted: Orders, SmartSet documented in this encounter Plan of Treatment Not on file documented as of this encounter Visit Diagnoses Diagnosis Acquired absence of breast and absent nipple, right- Primary Breast asymmetry between alutiiq breast and reconstructed breast Disproportion of reconstructed breast Encounter to discuss breast reconstruction documented in this encounter Care Teams Party Coordinator Relationship Specialty Start Date End Date Ricardo Contreras MD [address] [place] [address] PCP - General Jalil Marie MD [address] [place] [address] Consulting Physician Hematology 04/12/22 Barbie Jorgensen APRN [address] [place] [address] Nurse Practitioner Oncology 06/21/22 documented as of this encounter
--- OUTSIDE RECORDS SUMMARY | 2024-08-18 13:10 | XMS_ITS | Encounter Summary ---
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 Procedures AL REPLACEMENT TISSUE MEAL ATTENDANT W/PERMANENT IMPLANT AL REVISION ANDRES-IMPLANT CAPSULE BREAST AL BREAST AUGMENTATION WITH IMPLANT TISSUE MEAL ATTENDANT REMOVAL BREAST CAPSULOTOMY LEFT BREAST SALINE IMPLANT FOR SEMENTRY Gregory Forrest MD [address] [place] [address] [facility] [address] 3[address] [place] [address] Referral ID Status Reason Start Date Expiration Date Visits Re quested Visits Authorized [id number] Encounter Details Date Type Department Care Team (Latest Contact Info) Description 08/24/2022 8:37 AM EST - 08/24/2022 10:39 AM EST Hospital Encounter [facility] [address] [place] [address] Discharge Disposition: Home or Self [...] suspected to have Coronavirus/COVID-19? No / Unsure 08/24/2022 7:36 AM EST documented as of this encounter [...] surgery 03/16/2022 ergocalciferol (Vitamin D2) 1.25 MG (05733 UT) capsule 1 capsule (50,000 Units) 1 [...] Name Priority Date/Time Associated Diagnosis Comments SCANNED CARDIOLOGY RESULT 08/25/2022 2:16 PM EST STRESS TEST, REGADENOSON W MYOCARDIAL PERFUSION SPECT (MULTI STUDY) Routine 08/24/2022 10:52 AM EST Medication monitoring encounter Chest pain, unspecified type documented in this encounter Results * SCANNED CARDIOLOGY RESULT (08/25/2022 2:16 PM EST) Narrative 08/25/2022 2:16 PM EST Ordered by an unspecified provider. Generic Provider Onbase ECG ORDERABLES documented in this encounter Visit Diagnoses Not on filedocumented in this encounter Administered Medications Inactive Administered Medications - up to 3 most recent administrations Medication Order MAR Action Action Date Dose Rate Site Technetium Tc 99m Sestamibi radio-isotope injection Intravenous, Once in imaging, Starting on Nikki 08/24/22 at 0928, For 1 dose Given 08/24/2022 10:15 AM EST 33.8 millicuries documented in this encounter Care Teams Grass Farmer Relationship Specialty Start Date End Date Ricardo Contreras MD [address] [place] [address] PCP - General Jalil Marie MD [address] [place] [address] Consulting Physician Hematology 04/12/22 Barbie Jorgensen APRN [address] [place] [address] Nurse Practitioner Oncology 06/21/22 documented as of this encounter
--- OUTSIDE RECORDS SUMMARY | 2024-08-18 13:10 | XMS_ITS | Encounter Summary ---
Author Organization [facility] nter Address [address] [place] [address] Care Team Providers Care Licensed Vocational Nurse Name Role Phone Ricardo Contreras MD Primary Care Provider + Jalil Marie MD Unavailable [phone] Barbie Jorgensen APRN Unavailable [phone] Encounter Details Date Type Department Care Team (Late st Contact Info) Description 08/03/2022 Telephone [facility] [address] [facility] [place] [phone] Adelita Guerrero [address] [place] [address] Social History Tobacco Use Types Packs/Day Years [...] suspected to have Coronavirus/COVID-19? No / Unsure 08/03/2022 1:40 PM EST documented as of this encounter Miscellaneous Notes * Telephone Encounter - Adelita Guerrero - 08/03/2022 5:17 PM EST Contacted pt about abnormal xray results. Explained to continue treatment plan. Pt voiced understanding. ----- Message from Toney Sanchez NP sent at 08/03/2022 3:28 PM EST ----- Please call the patient regarding her abnormal result. Showed bronchitis documented in this encounter Plan of Treatment Not on file documented as of this encounter Visit Diagnoses Not on filedocumented in this encounter Care Teams Licensed Vocational Nurse Relationship Specialty Start Date End Date Ricardo Contreras MD [address] [place] [address] PCP - General Jalil Marie MD [address] [place] [address] Consulting Physician Hematology 04/12/22 Barbie Jorgensen APRN [address] [place] [address] Nurse Practitioner Oncology 06/21/22 documented as of this encounter
--- OUTSIDE RECORDS SUMMARY | 2024-08-18 13:10 | XMS_ITS | Encounter Summary ---
Author Organization [facility] nter Address [address] [place] [address] Care Team Providers Care Linen Sorter Name Role Phone Ricardo Contreras MD Primary Care Provider + Jalil Marie MD Unavailable Barbie Jorgensen TRUSS MAKER Unavailable [phone] Clara Holbrook TRUSS MAKER Unavailable Encounter Details Date Type Department Care Team (Late st Contact Info) Description 07/31/2022 Telephone [facility] [address] [place] [address] May Dickerson PA [address] [place] [address] Social History Tobacco Use Types [...] on filedocumented in this encounter Care Teams Linen Sorter Relationship Specialty Start Date End Date Ricardo Contreras MD [address] [place] [address] PCP - General Jalil Marie MD [address] [place] [address] Consulting Physician Hematology 04/12/22 Barbie Jorgensen APRN [address] [place] [address] Nurse Practitioner Oncology 06/21/22 Clara Holbrook APRN [address] [place] [address] Nurse Practitioner Oncology 01/24/23 documented as of this encounter
--- OUTSIDE RECORDS SUMMARY | 2024-08-18 13:10 | XMS_ITS | Encounter Summary ---
Author Organization [facility] nter Address [address] [place], [place] [id number] [place] [address] Care Team Providers Care Bridge Inspector Name Role Phone Ricardo Contreras MD Primary Care Provider + Jalil Marie MD Unavailable [phone] Barbie Jorgensen APRN Unavailable [phone] Encounter Details Date Type Department Care Team (Latest Contact Info) Description 07/05/2022 Travel Social History Tobacco Use Types Packs/Day [...] suspected to have Coronavirus/COVID-19? No / Unsure 07/05/2022 10:50 AM EDT documented as of this encounter Plan of Treatment Not on file documented as of this encounter Visit Diagnoses Not on filedocumented in this encounter Care Teams Bridge Inspector Relationship Specialty Start Date End Date Ricardo Contreras MD [address] [place] [address] PCP - General Jalil Marie MD [address] [place] [address] Consulting Physician Hematology 04/12/22 Barbie Jorgensen APRN [address] [place] [address] Nurse Practitioner Oncology 06/21/22 documented as of this encounter
--- OUTSIDE RECORDS SUMMARY | 2024-08-18 13:10 | XMS_ITS | Encounter Summary ---
Author Organization [facility] nter Address [address] [place], [place] [address] [place] [address] Care Team Providers Care Electric Meter Tester Shop Name Role Phone Ricardo Contreras MD Primary Care Provider + Jalli Marie MD Unavailable [phone] Barbie Jorgensen APRN Unavailable [phone] Encounter Details Date Type Department Care Team (Latest Contact Info) Description 08/23/2022 Travel Social History Tobacco Use Types Packs/Day [...] on filedocumented in this encounter Care Teams Electric Meter Tester Shop Relationship Specialty Start Date End Date Ricardo Contreras MD [address] [place] [address] PCP - General Jalil Marie MD [address] [place] [address] Consulting Physician Hematology 04/12/22 Barbie Jorgensen APRN [address] [place] [address] Nurse Practitioner Oncology 06/21/22 documented as of this encounter
--- OUTSIDE RECORDS SUMMARY | 2024-08-18 13:10 | XMS_ITS | Encounter Summary ---
Author Organization [facility] nter Address [address] [place], [place] [id number] [place] [address] Care Team Providers Care Ring Striker Name Role Phone Ricardo Contreras MD Primary Care Provider + Jalil Marie MD Unavailable [phone] Barbie Jorgensen APRN Unavailable [phone] Encounter Details Date Type Department Care Team (Latest Contact Info) Description 08/03/2022 Travel Social History Tobacco Use Types Packs/Day [...] on filedocumented in this encounter Care Teams Ring Striker Relationship Specialty Start Date End Date Ricardo Contreras MD [address] [place] [address] PCP - General Jalil Marie MD [address] [place] [address] Consulting Physician Hematology 04/12/22 Barbie Jorgensen APRN [address] [place] [address] Nurse Practitioner Oncology 06/21/22 documented as of this encounter
--- OUTSIDE RECORDS SUMMARY | 2024-08-18 13:10 | XMS_ITS | Encounter Summary ---
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 Procedures CO REPLACEMENT TISSUE AMPOULE FILLER W/PERMANENT IMPLANT CO REVISION ANDRES-IMPLANT CAPSULE BREAST CO BREAST AUGMENTATION WITH IMPLANT TISSUE AMPOULE FILLER REMOVAL BREAST CAPSULOTOMY LEFT BREAST SALINE IMPLANT FOR SEMENTRY Gregory Forrest MD [address] [place] [address] [facility] [address], [facility] [place] [address] Referral ID Status Reason Start Date Expiration Date Visits Re quested Visits Authorized [id number] Encounter Details Date Type Department Care Team (Latest Contact Info) Description 08/24/2022 6:57 AM EST - 08/24/2022 8:26 AM EST Hospital Encounter [facility] [address] [place] [address] Gregory Forrest MD [address] [place] [address] Discharge Disposition: Home or Self [...] Sign Reading Time Taken Comments Blood Pressure 146/78 08/24/2022 7:39 AM EST Pulse 75 08/24/2022 7:39 AM EST Temperature 36.1 ??C (97 ??F) 08/24/2022 7:39 AM EST Respiratory Rate 12 08/24/2022 7:39 AM EST Oxygen Saturation 95% 08/24/2022 7:39 AM EST Inhaled Oxygen Concentration - - Weight 98.9 kg (218 lb 0.6 oz) 08/24/2022 7:39 A M EST Height 162.6 cm (5' 4 ) 08/24/2022 7:39 AM EST Body Mass Index 37.43 08/24/2022 7:39 AM EST documented in this encounter Medications at Time of Discharge Medication Sig Dispensed Refills Start Date End Date atorvastatin (Lipitor) 80 MG tablet Take 1 tablet (80 mg) by mouth in the morning. Take morning of surgery citalopram (CeleXA) 40 MG tablet Take 1 tablet (40 mg) by mouth in the morning. Take morning of surgery 03/16/2022 ergocalciferol (Vitamin D2) 1.25 MG (77526 UT) capsule 1 capsule (50,000 Units) 1 [...] as of this encounter Miscellaneous Notes * Patient Education - Gregory Forrest MD - 08/24/2022 7:46 AM EST Patient Education Table of Contents Breast Augmentation, Care After To view videos and all your education online visit, [email or web address] or scan this QR code with your smartphone. Breast Augmentation, Care After This sheet gives you information about how to care for yourself after your procedure. Your health care provider may also give you more specific instructions. If you have problems or questions, contact your health care provider. What can I expect after the procedure? After the procedure, it is common to have: Bruising, soreness, and swelling in your breasts. This may last for a few days. Breast pain. You will be given medicine to help relieve pain. Follow these instructions at home: Medicines Take ezms-snw-myfjbgs and prescription medicines only as told by your health care provider. If you were prescribed an antibiotic medicine, take it as told by your health care provider. Do notstop taking the antibiotic even if you start to feel better. Ask your health care provider if the medicine prescribed to you: Requires you to avoid driving or using heavy machinery. Can cause constipation. You may need to take these actions to prevent or treat constipation: Drink enough fluid to keep your urine pale yellow. Take jpes-hks-yozsyue or prescription medicines. Eat foods that are high in fiber, such as beans, whole grains, and fresh fruits and vegetables. Limit foods that are high in fat and processed sugars, such as fried or sweet foods. Incision care Follow instructions from your health care provider about how to take care of your incisions. Make sure you: Wash your hands with soap and water before and after you change your bandage (dressing). If soap and water are not available, use hand wireless sales representative. Change your dressing as told by your health care provider. Leave stitches (sutures), skin glue, or adhesive strips in place. These skin closures may need to stay in place for 2 weeks or longer. If adhesive strip edges start to loosen and curl up, you may trim the loose edges. Do not remove adhesive strips completely unless your health care provider tells you to do that. Check your incision areas every day for signs of infection. Check for: More redness, swelling, or pain. More fluid or blood. Warmth. Pus or a bad smell. Activity Rest as told by your health care provider. Avoid sitting for a long time without moving. Get up to take short walks every 1?2 hours. This is important to improve blood flow and breathing. Ask for help if you feel weak or unsteady. Do not drive for 24 hours if you were given a sedative during your procedure. Do exercises as told by your health care provider. For the first 5?7 days after surgery, move your arms as little as possible and avoid turning or twisting your upper body. Return to your normal activities as told by your health care provider. Ask your health care provider what activities are safe for you. Do not do physical activity that requires a lot of movement or energy for 1 month after surgery, oras long as told by your health care provider. Do not lift anything that is heavier than 5 lb (2.3 kg) for 3 weeks or until your health care provider says that it is safe. Lifestyle Do not take baths, swim, or use a hot tub until your health care provider approves. Ask your healthcare provider if you may take showers. You may only be allowed to take sponge baths. Do not use any products that contain nicotine or tobacco, such as cigarettes, e- cigarettes, and chewing tobacco. These can delay incision healing after surgery. If you need help quitting, ask your health care provider. Avoid being in the sun for long periods of time. Talk to your health care provider about alternative screening tests to look for abnormalities in the breast, such as tumors or cysts. Breast implants can affect mammogram results, so you may need different tests as part of your regular screening. General instructions Wear a postoperative bra, compression bandage, or sports bra as directed. Wear compression stockings as told by your health care provider. These stockings help to prevent blood clots and reduce swelling in your legs. If you have tubes draining fluid from your surgical area, care for them as told by your health careprovider. Follow instructions from your health care provider about eating or drinking restrictions. Do not sleep on your belly for 4?6 weeks. Keep all follow-up visits as told by your health care provider. This is important. Contact a health care provider if you have: Any of these signs of infection: More redness, swelling, or pain around your incision area or in your breast. More fluid or blood coming from your incision area. Your incision or your breast feeling warm to the touch. Pus or a bad smell coming from your incision area. Nausea or vomiting that lasts for more than 2 days. Pain that does not get better with medicine. A cough. Difficulty moving your arm or pain when moving your arm. Areas of blood or fluid collecting in your breast. Bruising or swelling that does not get better after a few days. Get help right away if you have: Chest pain that is new or feels different from your pain after surgery. Abnormal heartbeats. Trouble breathing or shortness of breath. Swelling in your legs or arms. You have redness, warmth, or pain in your leg or arm. A fever. Summary You may have pain, bruising, soreness, and swelling in your breasts. This may last for a few days. Follow instructions from your health care provider about how to take care of your incisions. Follow instructions from your health care provider on what activities you can do and any restrictions you may have after the procedure. Do not sleep on your belly for 4?6 weeks. Contact your health care provider if you notice any signs of infection. This information is not intended to replace advice given to you by your health care provider. Make sure you discuss any questions you have with your health care provider. Document Released: 06/17/2014Document Revised: 02/24/2020Document Reviewed: 02/24/2020 [employer] Patient Education ? 2021 [employer] documented in this encounter Plan of Treatment Not on file documented as of this encounter Procedures Procedure Name Priority Date/Time Associated Diagnosis Comments POCT GLUCOSE PERFORMABLE Routine 08/24/2022 7:20 AM EST documented in this encounter Results * (ABNORMAL) POCT glucose (08/24/2022 7:20 AM EST) Glucose 281(H) 70 - 110 mg/dL 08/24/2022 7:36 AM EST [facility] Comment:No Action Blood Capillary blood specimen / Unknown 08/24/2022 7:20 AM EST 08/24/2022 7:36 AM EST Gregory Forrest MD LAB POINT OF CARE T EST DOCKED DEVICE UNSOLICITED RESULTS [facility] [address] [place] [address], documented in this encounter Visit Diagnoses Not on filedocumented in this encounter Administered Medications Inactive Administered Medications - up to 3 most recent administrations Medication Order MAR Action Action Date Dose Rate Site scopolamine (Transderm-Scop) patch 1 patch 1 patch, Transdermal, Administer over 24 Hours, Once, On Nikki 08/24/22 at 0730, For 1 dose, Preprocedure, Apply to clean, hairless skin behind the ear. When used for post-operative nausea and vomiting, remove 24 hours after applied. Apply to hairless area of skin behind the ear. Medication Applied 08/24/2022 7:43 AM EST 1 patch Behind Right Ear sodium chloride 0.9 % flush 1 mL 1 mL, Intravenous, Every 8 hours PRN, line care, Starting on Nikki 08/24/22 at 0729, Preprocedure tranexamic acid (Cyklokapron) 1,000 mg in sodium chloride 0.9 % 50 mL 1,000 mg, Intravenous, at 360 mL/hr, Administer over 10 Minutes, Once in OR, Starting on Nikki 08/24/22 at 0729, For 1 dose, Preprocedure, Do not exceed maximum rate of 100 mg per minute., Tranexamic Acid Indication: Surgical Prophylaxis: Other, Coverage: Bleeding documented in this encounter Active and Recently Administered Medications Times are shown in EST. Scheduled Medication Order 08/22/2022 08/23/2022 08/24/2022 ceFAZolin (Ancef) injection 2 g(Linked Group 1) 2 g, Intravenous, Once, On Nikki 08/24/22 at 0730, For 1 dose, Preprocedure, Administer within 60 minutes of incision., Suspected Indication (Select all that apply): Surgical Prophylaxis 729 (Canceled Entry - Provider: Automatic Discharge Provider - Comment: Automatically canceled at discontinue of medication order) clindamycin 900 mg in sodium chloride 0.9 % 50 mL IVPB(Linked Group 1) 900 mg, Intravenous, at 100 mL/hr, Administer over 30 Minutes, Once, On Nikki 08/24/22 at 0730, For 1 dose, Preprocedure, Administer within 60 minutes of incision. Iqet2Pto Administration System - ensure contents are activated and reconstituted prior to administration., Suspected Indication (Select all that apply): Surgical Prophylaxis 729 (Canceled Entry - Provider: Automatic Discharge Provider - Comment: Automatically canceled at discontinue of medication order) nozin nasal wireless sales representative popswab 3 application 3 application., Nasal, machine hose cutter, On Nikki 08/24/22 at 0730, For 1 dose, Preprocedure, Apply each dose to bilateral nares x 3., Indications: Pre op 0730 (Canceled Entry - Provider: Automatic Discharge Provider - Comment: Automatically canceled at discontinue of medication order) scopolamine (Transderm-Scop) patch 1 patch 1 patch, Transdermal, Administer over 24 Hours, Once, On Nikki 08/24/22 at 0730, For 1 dose, Preprocedure, Apply to clean, hairless skin behind the ear. When used for post-operative nausea and vomiting, remove 24 hours after applied. Apply to hairless area of skin behind the ear. 0743 (Medication Erin lied - Provider: Bethany Gonzalez RN)0826 (Due: Medication Removed - Provider: Automatic Discharge Provider - Comment: Time automatically adjusted from order being discontinued) tranexamic acid (Cyklokapron) 1,000 mg in sodium chloride 0.9 % 50 mL 1,000 mg, Intravenous, at 360 mL/hr, Administer over 10 Minutes, Once in OR, Starting on Nikki 08/24/22 at 0729, For 1 dose, Preprocedure, Do not exceed maximum rate of 100 mg per minute., Tranexamic Acid Indication: Surgical Prophylaxis: Other, Coverage: Bleeding PRN Medication Order 08/22/2022 08/23/2022 08/24/2022 sodium chloride 0.9 % flush 1 mL(Linked Group 2) 1 mL, Intravenous, Every 8 hours PRN, line care, Starting on Nikki 08/24/22 at 0729, Preprocedure Linked Groups Order Group 1: ceFAZolin (Ancef) injection 2 gJump to med 2 g, Intravenous, Once, On Nikki 08/24/22 at 0730, For 1 dose, Preprocedure, Administer within 60 minutes of incision., Suspected Indication (Select all that apply): Surgical Prophylaxis And clindamycin 900 mg in sodium chloride 0.9 % 50 mL IVPBJump to med 900 mg, Intravenous, at 100 mL/hr, Administer over 30 Minutes, Once, On Nikki 08/24/22 at 0730, For 1 dose, Preprocedure, Administer within 60 minutes of incision. Cayn5Gda Administration System - ensure contents are activated and reconstituted prior to administration., Suspected Indication (Select all that apply): Surgical Prophylaxis Group 2: Insert peripheral IV (CANCELED) Once, On Nikki 08/24/22 at 0730, For 1 occurrence, Routine, Preprocedure And Saline lock IV (CANCELED) Once, On Nikki 08/24/22 at 0730, For 1 occurrence, Routine, Preprocedure And sodium chloride 0.9 % flush 1 mLJump to med 1 mL, Intravenous, Every 8 hours PRN, line care, Starting on Nikki 08/24/22 at 0729, Preprocedure documented in this encounter Care Teams Operating Theatre Technician Relationship Specialty Start Date End Date Ricardo Contreras MD [address] [place] [address] PCP - General Jalil Marie MD [address] [place] [address] Consulting Physician Hematology 04/12/22 Barbie Jorgensen APRN [address] [place] [address] Nurse Practitioner Oncology 06/21/22 documented as of this encounter
--- OUTSIDE RECORDS SUMMARY | 2024-08-18 13:10 | XMS_ITS | Encounter Summary ---
Author Organization [facility] nter Address [address] [place] [address] [place] [id number] Care Team Providers Care Sammying Machine Operator Name Role Phone Ricardo Contreras MD Primary Care Provider + Jalil Marie MD Unavailable [phone] Barbie Jorgensen APRN Unavailable [phone] Encounter Details Date Type Department Care Team (Latest Contact Info) Description 07/05/2022 10:39 AM EDT - 07/05/2022 11:59 PM EDT Hospital Encounter [facility] [address] 3rd [place] [phone] Discharge Disposition: Home or Self Care Social [...] surgery 03/16/2022 ergocalciferol (Vitamin D2) 1.25 MG (46976 UT) capsule 1 capsule (50,000 Units) 1 [...] encounter Miscellaneous Notes * Preprocedure Instructions - Josefina Monsalve RN - 07/05/2022 10:45 AM EDT Please enter on the 3rd floor clinic building from the 3rd floor of the parking garage. Please feelfree to ask an employee for assistance. One persone is allowed with the patient in Preop or Recovery unless patient is under 18yrs of age or special needs patient. Each patient must have someone to drive him/her home when discharged. You may be sleepy, tired,or not your normal self. Please make arrangements for someone to help you at home. Instructions for Patient: Bring photo ID and Insurance card to get registered Use cleaning kit as directied Nothing to eat 8 hours of arrival time You may have clear liquids, nothing red or purple, up to 2 hours of arrival time Take celexa, hydroxyzine, omeprazole, and topamax morning of procedure with water Patient Verbalizes Understanding of all above instructions given: Yes Timeout: Date/Time of Procedure: 07/06/2022 Correct Person: Yes Correct Site: Yes Correct Procedure:Yes Cultural/Spiritual: Are There Cultural/Spiritual Practices That We Should Know About? No Date of Last Colonoscopy: never documented in this encounter Plan of Treatment Not on file documented as of this encounter Visit Diagnoses Not on filedocumented in this encounter Care Teams Sammying Machine Operator Relationship Specialty Start Date End Date Ricardo Contreras MD [address] [place] [address] PCP - General Jalil Marie MD [address] [place] [address] Consulting Physician Hematology 04/12/22 Barbie Jorgensen APRN [address] [place] [address] Nurse Practitioner Oncology 06/21/22 documented as of this encounter
--- OUTSIDE RECORDS SUMMARY | 2024-08-18 13:10 | XMS_ITS | Encounter Summary ---
Author Organization [facility] nter Address [address] [place] [address] [place] [id number] Care Team Providers Care Toy Trains And Accessories Salesperson Name Role Phone Ricardo Contreras MD Primary Care Provider + Jalil Marie MD Unavailable [phone] Barbie Jorgensen APRN Unavailable [phone] Encounter Details Date Type Department Care Team (Late st Contact Info) Description 08/03/2022 2:30 PM EST Ancillary Procedure [facility] [address] [place] [id number] Social History Tobacco Use Types Packs/Day Years [...] Name Priority Date/Time Associated Diagnosis Comments XR CHEST 2 VIEWS STAT 08/03/2022 2:34 PM EST Bronchitis documented in this encounter Results * XR chest 2 views (08/03/2022 2:34 PM EST) Anatomical Region Laterality Modality Chest Digital Radiogra phy 08/03/2022 2:34 PM EST Impressions 08/03/2022 2:58 PM EST 1. No acute cardiopulmonary process. 2. There is a radiodensity projecting over the right lower lung region likely artifact external to the patient. Report Sign Date: 08/03/2022 2:58 PM, Electronically Signed By: Sang George MD Narrative 08/03/2022 2:58 PM EST PROCEDURE: XR CHEST 2 VIEWS: 08/03/2022 CLINICAL INFORMATION: sob, bronchitis COMPARISON: 02/11/2021 There is cardiomegaly. There is opacity projecting over the right lower lung region. There is no focal consolidation, pleural effusion or pneumothorax. Procedure Note Sang George MD - 08/03/2022 PROCEDURE: XR CHEST 2 VIEWS: 08/03/2022 CLINICAL INFORMATION: sob, bronchitis COMPARISON: 02/11/2021 There is cardiomegaly. There is opacity projecting over the right lowerlung region. There is no focal consolidation, pleural effusion orpneumothorax. IMPRESSION: 1. No acute cardiopulmonary process. 2. There is a radiodensity projecting over the right lower lung regionlikely artifact external to the patient. Report Sign Date: 08/03/2022 2:58 PM, Electronically Signed By: Samir CAREY Euna Blossom Daniel SHANK PAPERER IMG XR PROCEDURES documented in this encounter Visit Diagnoses Not on filedocumented in this encounter Care Teams Toy Trains And Accessories Salesperson Relationship Specialty Start Date End Date Ricardo Contreras MD [address] [place] [address] PCP - General Jalil Marie MD [address] [place] [address] Consulting Physician Hematology 04/12/22 Barbie Jorgensen APRN [address] [place] [address] Nurse Practitioner Oncology 06/21/22 documented as of this encounter
--- OUTSIDE RECORDS SUMMARY | 2024-08-18 13:10 | XMS_ITS | Encounter Summary ---
Author Organization [facility] nter Address [address] [place] [address] Care Team Providers Care Shaker Out Name Role Phone Ricardo Contreras MD Primary Care Provider + Jalil Marie MD Unavailable [phone] Barbie Jorgensen APRN Unavailable [phone] Encounter Details Date Type Department Care Team (Late st Contact Info) Description 08/24/2022 8:17 AM EST Anesthesia Event [facility] [address] [place] [address] Domenic Curry MD [address] [place] [phone] Laureano Steward, LIZET [address] [place] [address] Anesthesia Record Procedure Summary Procedure Name Responsible Anesthesiologist Anesthesia Start Time Anesthesia Stop Time TISSUE COMPETITIVE ATHLETE REMOVAL (Right: Breast) Events No events on file. Meds * [...] OR Notes * Anesthesia Preprocedure Evaluation - Domenic Curry MD - 08/24/2022 7:32 AM EST Patient: Catie Martinez Procedure Information Date/Time: 04/13/22 0800 Procedures: BREAST RECONSTRUCTION, TOTAL (Right Breast) MASTOPEXY (Left Breast) Location: [facility] Operating Room Surgeons: Gregory Forrest MD Anesthesia Evaluation Patient summary reviewed and Nursing notes reviewed No history of anesthetic complications: Airway Dental Pulmonary - negative ROS and normal exam Hematology/Oncology Neuro/Psych (+) Psychiatric history, Depression GI/Hepatic/Renal (+) GERD, Endo (+) Diabetes Mellitus: , Other Cardiovascular (+) Hypertension, Hyperlipidemia, Vitals: There were no vitals taken for this visit. ALL: LATEX, hospital tape Meds: amitriptyline amoxicillin anastrozole atorvastatin benzonatate Calcium 600+D tablet citalopram ferrous sulfate fluconazole furosemide glipiZIDE hydrOXYzine HCl lisinopril loratadine magnesium oxide meloxicam metFORMIN omeprazole oxyCODONE-acetaminophen Ozempic (0.25 or 0.5 MG/DOSE) solution pen-injector potassium chloride solution pregabalin rOPINIRole sulfamethoxazole-trimethoprim topiramate tablet Past Surgical History: Procedure Laterality Date ??? ABCESS DRAINAGE x2 ??? BI US GUIDED BREAST LOCALIZATION AND [...] ??? NOSE SURGERY ??? SHOULDER SURGERY Bilateral TESTS: ECHO 11/02/21: EF 65-70%, mild reduced RV func, GR1 DD, No valve dz Physical Exam Airway Mallampati: II TM distance: >3 FB Neck ROM: full Cardiovascular Rhythm: regular Rate: normal Dental (+) Edentulous Pulmonary - normal exam Anesthesia Plan Lab Results Component Value Date NA 136 06/21/2022 K 4.2 06/21/2022 CALCIUM 8.9 06/21/2022 CL 106 06/21/2022 CO2 25 06/21/2022 BUN 21 (H) 06/21/2022 MG 2.0 02/11/2021 PHOS 4.9 02/20/2020 CREATININE 1.20 (H) 06/21/2022 GLUCOSE 309 (H) 06/21/2022 INR 0.99 08/23/2020 Lab Results Component Value Date WBC 7.2 06/21/2022 RBC 4.41 06/21/2022 HCT 37.1 06/21/2022 HGB 12.6 06/21/2022 PLT 248 06/21/2022 MCV 84.2 06/21/2022 documented in this encounter Plan of Treatment Not on file documented as of this encounter Visit Diagnoses Not on filedocumented in this encounter Care Teams Shaker Out Relationship Specialty Start Date End Date Ricardo Contreras MD [address] [place] [address] PCP - General Jalil Marie MD [address] [place] [address] Consulting Physician Hematology 04/12/22 Barbie Jorgensen APRN [address] [place] [address] Nurse Practitioner Oncology 06/21/22 documented as of this encounter
--- OUTSIDE RECORDS SUMMARY | 2024-08-18 13:10 | XMS_ITS | Encounter Summary ---
Author Organization [facility] nter Address [address] [place], [place] [id number] [place] [address] Care Team Providers Care Transitional Care Nurse Name Role Phone Ricardo Contreras MD Primary Care Provider + Jalil Marie MD Unavailable [phone] Barbie Jorgensen APRN Unavailable [phone] Encounter Details Date Type Department Care Team (Latest Contact Info) Description 08/11/2022 Travel Social History Tobacco Use Types Packs/Day [...] on filedocumented in this encounter Care Teams Transitional Care Nurse Relationship Specialty Start Date End Date Ricardo Contreras MD [address] [place] [address] PCP - General Jalil Marie MD [address] [place] [address] Consulting Physician Hematology 04/12/22 Barbie Jorgensen APRN [address] [place] [address] Nurse Practitioner Oncology 06/21/22 documented as of this encounter
--- OUTSIDE RECORDS SUMMARY | 2024-08-18 13:10 | XMS_ITS | Encounter Summary ---
Author Organization [facility] nter Address [address] [place], [place] [id number] [place] [address] Care Team Providers Care Fishing Tool Operator Name Role Phone Ricardo Contreras MD Primary Care Provider + Jalil Marie MD Unavailable [phone] Barbie Jorgensen APRN Unavailable [phone] Encounter Details Date Type Department Care Team (Latest Contact Info) Description 06/21/2022 Travel Social History Tobacco Use Types Packs/Day [...] suspected to have Coronavirus/COVID-19? No / Unsure 06/21/2022 9:28 AM EDT documented as of this encounter Plan of Treatment Not on file documented as of this encounter Visit Diagnoses Not on filedocumented in this encounter Care Teams Fishing Tool Operator Relationship Specialty Start Date End Date Ricardo Contreras MD [address] [place] [address] PCP - General Jalil Marie MD [address] [place] [address] Consulting Physician Hematology 04/12/22 Barbie Jorgensen APRN [address] [place] [address] Nurse Practitioner Oncology 06/21/22 documented as of this encounter
--- OUTSIDE RECORDS SUMMARY | 2024-08-18 13:10 | XMS_ITS | Encounter Summary ---
Author Organization [facility] nter Address [address] [place], [place] [id number] [place] [address] Care Team Providers Care Buckle Attaching Machine Operator Name Role Phone Ricardo Contreras MD Primary Care Provider + Jalil Marie MD Unavailable [phone] Barbie Jorgensen APRN Unavailable [phone] Encounter Details Date Type Department Care Team (Latest Contact Info) Description 09/13/2022 3:54 PM EST - 09/13/2022 11:59 PM EST Hospital Encounter [facility] [address] 3[address] [place] [id number] Discharge Disposition: Home or Self Care Social [...] surgery 03/16/2022 ergocalciferol (Vitamin D2) 1.25 MG (89953 UT) capsule 1 capsule (50,000 Units) 1 [...] encounter Miscellaneous Notes * Preprocedure Instructions - Pushpa Nesbitt RN - 09/13/2022 4:00 PM EST Please enter on the 3rd floor clinic building from the 3rd floor of the parking garage. Please feelfree to ask an employee for assistance. One visitor is allowed with the patient in Pre-op. Each patient must have someone to drive him/her home when discharged. You may be sleepy, tired,or not your normal self. Please make arrangements for someone to help you at home. Instructions for Patient: No Lotion or Powder on Hands/Arms/Chest, No Make-Up, Nail Cypriot, Jewelry, Hair Pins, Do Not Take Blood Thinner Medication, Wear Loose, Comfortable Clothing, Do Not Take Any Diabetes Medicine, Do NotTake Maalox Type Medicine and Take Your Morning Meds With Water as instructed. Use the CHG prep kitas directed by the office. Patient Verbalizes Understanding of all above instructions given: Yes Timeout: Date/Time of Procedure: 09/14/2022 9:00 am arrival time Correct Person: Yes Correct Site: Yes Correct Procedure:Yes Cultural/Spiritual: Are There Cultural/Spiritual Practices That We Should Know About? No Bring photo ID and insurance card Date of Last Colonoscopy: Never documented in this encounter Plan of Treatment Not on file documented as of this encounter Visit Diagnoses Not on filedocumented in this encounter Care Teams Buckle Attaching Machine Operator Relationship Specialty Start Date End Date Ricardo Contreras MD [address] [place] [address] PCP - General Jalil Marie MD [address] [place] [phone] Consulting Physician Hematology 04/12/22 Barbie Jorgensen APRN [address] [place] [address] [place] [address] Nurse Practitioner Oncology 06/21/22 documented as of this encounter
--- OUTSIDE RECORDS SUMMARY | 2024-08-18 13:10 | XMS_ITS | Encounter Summary ---
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 Procedures AK REPLACEMENT TISSUE CURLING MACHINE OPERATOR W/PERMANENT IMPLANT AK REVISION ANDRES-IMPLANT CAPSULE BREAST AK BREAST AUGMENTATION WITH IMPLANT TISSUE CURLING MACHINE OPERATOR REMOVAL BREAST CAPSULOTOMY LEFT BREAST SALINE IMPLANT FOR SEMENTRY Gregory Forrest MD [address] [place] [address] [facility] [address] 3[address] [place] [address] Referral ID Status Reason Start Date Expiration Date Visits Re quested Visits Authorized [id number] 1 1 Encounter Details Date Type Department Care Team (Latest Contact Info) Description 07/05/2022 1:15 PM EDT Office Visit [facility] [address] [place] [address] Gregory Forrest MD [address] [place] [address] Acquired absence of breast and absent nipple, right (Primary Dx); Breast asymmetry between [place] breast and reconstructed breast Social History Tobacco [...] absent nipple, right- Primary Breast asymmetry between [place] breast and reconstructed breast Disproportion of reconstructed breast documented in this encounter Care Teams Raw Stock Machine Loader Relationship Specialty Start Date End Date Ricardo Contreras MD [address] [place] [phone] PCP - General Jalil Marie MD [address] [place] [address] Consulting Physician Hematology 04/12/22 Barbie Jorgensen APRN [address] [place] [address] Nurse Practitioner Oncology 06/21/22 documented as of this encounter
--- OUTSIDE RECORDS SUMMARY | 2024-08-18 13:10 | XMS_ITS | Encounter Summary ---
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 Procedures OH REPLACEMENT TISSUE TERRITORY REPRESENTATIVE W/PERMANENT IMPLANT OH REVISION ANDRES-IMPLANT CAPSULE BREAST OH BREAST AUGMENTATION WITH IMPLANT TISSUE TERRITORY REPRESENTATIVE REMOVAL BREAST CAPSULOTOMY LEFT BREAST SALINE IMPLANT FOR SEMENTRY Gregory Forrest MD [address] [place] [address] [facility] [address] 3[address] [place] [address] Referral ID Status Reason Start Date Expiration Date Visits Re quested Visits Authorized [id number] 1 1 Encounter Details Date Type Department Care Team (Latest Contact Info) Description 08/24/2022 8:37 AM EST Hospital Encounter [facility] [address] [place] [address] Discharge Disposition: Home or Self [...] surgery 03/16/2022 ergocalciferol (Vitamin D2) 1.25 MG (24384 UT) capsule 1 capsule (50,000 Units) 1 [...] Procedure Name Priority Date/Time Associated Diagnosis Comments STRESS TEST, REGADENOSON W MYOCARDIAL PERFUSION SPECT (MULTI STUDY) Routine 08/24/2022 10:52 AM EST Medication monitoring encounter Chest pain, unspecified type documented in this encounter Visit Diagnoses Not on filedocumented in this encounter Administered Medications Inactive Administered Medications - up to 3 most recent administrations Medication Order MAR Action Action Date Dose Rate Site regadenoson (Lexiscan) injection 0.4 mg 0.4 mg, Intravenous, Once, On Nikki 08/24/22 at 0900, For 1 dose Given 08/24/2022 9:00 AM EST 0.4 mg documented in this encounter Care Teams Real Estate Sales Manager Relationship Specialty Start Date End Date Ricrado Contreras MD [address] [place], [place] [phone] PCP - General Jalil Marie MD [address] [place] [address] Consulting Physician Hematology 04/12/22 Barbie Jorgensen APRN [address] [place] [address] Nurse Practitioner Oncology 06/21/22 documented as of this encounter
--- OUTSIDE RECORDS SUMMARY | 2024-08-18 13:10 | XMS_ITS | Encounter Summary ---
Author Organization [facility] nter Address [address] [place] [address] Care Team Providers Care Senior Java Software Engineer Name Role Phone Ricardo Contreras MD Primary Care Provider + Jalil Marie MD Unavailable [phone] Barbie Jorgensen APRN Unavailable [phone] Reason for Referral * Cardiac Stress Testing (Routine) - Closed Specialty Diagnoses / Procedures Referred By Contac t Referred To Contact Cardiology Diagnoses Medication monitoring encounter Chest pain, unspecified type Procedures Stress test with myocardial perfusion May Dickerson PA [address] [place] [address] Referral ID Status Reason Start Date Expiration Date Visits Re quested Visits Authorized [id number] Closed 05/31/2022 11/27/2022 3 3 Reason for Visit * Auth/Cert (Routine) Specialty Diagnoses / Procedures Referred By Contcurly moreno Referred To Contact Diagnoses 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 Procedures TN REPLACEMENT TISSUE BREEDER HEN SERVICE TECHNICIAN W/PERMANENT IMPLANT TN REVISION ANDRES-IMPLANT CAPSULE BREAST TN BREAST AUGMENTATION WITH IMPLANT TISSUE BREEDER HEN SERVICE TECHNICIAN REMOVAL BREAST CAPSULOTOMY LEFT BREAST SALINE IMPLANT FOR SEMENTRY Gregory Forrest MD [address] [place] [address] [facility] [address] [place] [address] Referral ID Status Reason Start Date Expiration Date Visits Re quested Visits Authorized [id number] Encounter Details Date Type Department Care Team (Latest Contact Info) Description 08/24/2022 8:36 AM EST Hospital Encounter [facility] [address] [place] [address] Medication monitoring encounter; Chest pain, unspecified type Discharge Disposition: Home or Self Care Social [...] surgery 03/16/2022 ergocalciferol (Vitamin D2) 1.25 MG (20949 UT) capsule 1 capsule (50,000 Units) 1 [...] type documented in this encounter Results * STRESS TEST, REGADENOSON W MYOCARDIAL PERFUSION SPECT (MULTI STUDY) (08/24/2022 10:52 AM EST) Anatomical Region Laterality Modality Nuclear Medicine 08/24/2022 10:1 8 AM EST Narrative 08/24/2022 2:26 PM EST *[facility]* [facility] [address] [place] [address] Fax #: [facility] Nuclear Cardiology [address] [place] [address] [place] [address] Web: [email or web address] 1-day ??Regadenoson (Lexiscan) ??Myocardial Perfusion Imaging Rest/Stress Patient: Catie Martinez ?? Study Date: ?? 08/24/2022 ? Josefina GAMA: ? 1970 ? Height: ??/ ?Patient ?status: Age: ? 51 ? Weight: ??/ ?Patient ?location: Gender: ??F ?BMI/BSA: / *Ordering Physician: * May Dickerson *Primary Care Provider: * Ricardo Contreras *Interpreting Physician: * Taiwo Martin MD *Technologist: * William Miguel ; Kirk Wayne Summary: 1. Myocardial perfusion imaging: No myocardial perfusion defects ?? noted. 2. Gated SPECT: The left ventricular end-diastolic volume is 115 ?? ml. The left ventricular end-systolic volume is 55 ml. The left ?? ventricular end-diastolic volume index is 58.6 ml/m^2. The left ?? ventricular end-systolic volume index is 28 ml/m^2. The ?? calculated left ventricular ejection fraction is 52%. Impressions: 1. Normal study after pharmacologic stress. 2. No evidence for myocardial ischemia. Study data: ?? Nuclear components: ?Rest/stress imaging. ??Consent: The risks, benefits, and alternatives to the procedure were explained to the patient and informed consent was obtained. ??Study completion: ??The patient tolerated the procedure well. Procedure data: ??Initial setup. The patient was brought to the laboratory. A baseline ECG was recorded. Intravenous access was obtained. Surface ECG leads and blood pressure measurements were monitored. ??Regadenoson (Lexiscan) stress test. Regadenoson (Lexiscan) was administered by intravenous bolus, followed by a 5 ml saline flush. The total dose was 0.4mg. over 10.00 sec Isotope administration: + + + + !Stage ? !Rest ?!Stress ?! + + + + !Agent ? !Tc-99m sestamibi!Tc-99m sestamibi! + + + + !Injected dose !9.9 mCi ? !33.8 mCi ?! + + + + !Injection time!08:45 AM ?!10:15 AM ?! + + + + !Route ? !IV ?!IV ?! + + + + !Injection site!Left antecubital!Left antecubital! + + + + !Tech initials !LD/SF ? !LD/SF ? ! + + + + Image properties: ?? Gated imaging was performed. Cardiac stress table: +---------+--+ + + !Stage ?!HR!BP ?!Symptoms ?! +---------+--+ + + !SUPINE ?? !68!171/95 (120)! ! +---------+--+ + + !START EXE!76! ! ! +---------+--+ + + !STAGE 1 ??!84!187/86 (120)! ! +---------+--+ + + !PEAK EXE !83! ! ! +---------+--+ + + !RECOVERY !83! ! ! +---------+--+ + + !RECOVERY !81! ! ! +---------+--+ + + !RECOVERY !80!167/85 (112)! ! +---------+--+ + + !END REC ??!82! ! ! +---------+--+ + + !Baseline !--! !No symptoms.! +---------+--+ + + Stress results: ?? Maximal heart rate during stress was 88 bpm (51% of maximal predicted heart rate). Stress ECG: ??No significan ST changes with lexiscan stress. Myocardial perfusion imaging: ?? The TID ratio is 0.99. No myocardial perfusion defects noted. Stress: Perfusion score: 0. Reversibility: Perfusion score: 0. Gated SPECT: ?? The left ventricular end-diastolic volume is 115 ml. The left ventricular end-systolic volume is 55 ml. The left ventricular end-diastolic volume index is 58.6 ml/m^2. The left ventricular end-systolic volume index is 28 ml/m^2. The calculated left ventricular ejection fraction is 52%. Prepared and electronically signed by: Taiwo Martin MD 08/24/2022 14:25 Procedure Note Taiwo Martin MD - 08/24/2022 *[facility]* [facility] [address] [address] Fax #: [facility] Diagn[facility] Nuclear Cardiology [address] [place] [address] Web: [email or web address] 1-day Regadenoson (Lexiscan) Myocardial Perfusion Imaging Rest/Stress Patient: Catie Martinez Study Date: 08/24/2022 Josefina : 1970 Height: / Patient status: Age: 51 Weight: / Patient location: Gender: F BMI/BSA: / *Ordering Physician: * May Dickerson *Primary Care Provider: * Ricardo Contreras *Interpreting Physician: * Taiwo Martin MD *Technologist: * William Miguel ; Kirk Wayne Summary: 1. Myocardial perfusion imaging: No myocardial perfusion defects noted. 2. Gated SPECT: The left ventricular end-diastolic volume is 115 ml. The left ventricular end-systolic volume is 55 ml. The left ventricular end-diastolic volume index is 58.6 ml/m^2. The left ventricular end-systolic volume index is 28 ml/m^2. The calculated left ventricular ejection fraction is 52%. Impressions: 1. Normal study after pharmacologic stress. 2. No evidence for myocardial ischemia. Study data: Nuclear components: Rest/stress imaging. Consent: The risks, benefits, and alternatives to the procedure were explained to the patient and informed consent was obtained. Study completion: The patient tolerated the procedure well. Procedure data: Initial setup. The patient was brought to the laboratory. A baseline ECG was recorded. Intravenous access was obtained. Surface ECG leads and blood pressure measurements were monitored. Regadenoson (Lexiscan) stress test. Regadenoson (Lexiscan) was administered by intravenous bolus, followed by a 5 ml saline flush. The total dose was 0.4mg. over 10.00 sec Isotope administration: + + + + !Stage !Rest !Stress ! + + + + !Agent !Tc-99m sestamibi!Tc-99m sestamibi! + + + + !Injected dose !9.9 mCi !33.8 mCi ! + + + + !Injection time!08:45 AM !10:15 AM ! + + + + !Route !IV !IV ! + + + + !Injection site!Left antecubital!Left antecubital! + + + + !Tech initials !LD/SF !LD/SF ! + + + + Image properties: Gated imaging was performed. Cardiac stress table: +---------+--+ + + !Stage !HR!BP !Symptoms ! +---------+--+ + + !SUPINE !68!171/95 (120)! ! +---------+--+ + + !START EXE!76! ! ! +---------+--+ + + !STAGE 1 !84!187/86 (120)! ! +---------+--+ + + !PEAK EXE !83! ! ! +---------+--+ + + !RECOVERY !83! ! ! +---------+--+ + + !RECOVERY !81! ! ! +---------+--+ + + !RECOVERY !80!167/85 (112)! ! +---------+--+ + + !END REC !82! ! ! +---------+--+ + + !Baseline !--! !No symptoms.! +---------+--+ + + Stress results: Maximal heart rate during stress was 88 bpm (51% of maximal predicted heart rate). Stress ECG: No significan ST changes with lexiscan stress. Myocardial perfusion imaging: The TID ratio is 0.99. No myocardial perfusion defects noted. Stress: Perfusion score: 0. Reversibility: Perfusion score: 0. Gated SPECT: The left ventricular end-diastolic volume is 115 ml. The left ventricular end-systolic volume is 55 ml. The left ventricular end-diastolic volume index is 58.6 ml/m^2. The left ventricular end-systolic volume index is 28 ml/m^2. The calculated left ventricular ejection fraction is 52%. Prepared and electronically signed by: Taiwo Martin MD 08/24/2022 14:25 May CHAMPION CV STRESS PROCEDURES documented in this encounter Visit Diagnoses Diagnosis Medication monitoring encounter Encounter for therapeutic drug monitoring Chest pain, unspecified type documented in this encounter Administered Medications Inactive Administered Medications - up to 3 most recent administrations Medication Order MAR Action Action Date Dose Rate Site Technetium Tc 99m Sestamibi radio-isotope injection Intravenous, Once in imaging, Starting on Nikki 08/24/22 at 0841, For 1 dose Given 08/24/2022 8:45 AM EST 9.9 millicuries Left Antecubital documented in this encounter Care Teams Senior Java Software Engineer Relationship Specialty Start Date End Date Ricardo Contreras MD [address] [place] [address] PCP - General Jalil Marie MD [address] [place] [address] Consulting Physician Hematology 04/12/22 Barbie Jorgensen APRN [address] [place] [address] Nurse Practitioner Oncology 06/21/22 documented as of this encounter
--- OUTSIDE RECORDS SUMMARY | 2024-08-18 13:10 | XMS_ITS | Encounter Summary ---
Author Organization [facility] nter Address [address] [place] [address] Care Team Providers Care Programming Specialist Name Role Phone Ricardo Contreras MD Primary Care Provider + Jalil Marie MD Unavailable [phone] Barbie Jorgensen APRN Unavailable [phone] Reason for Referral * Imaging (Routine) - Denied Specialty Diagnoses / Procedures Referred By Frantz t Referred To Contact Cardiology Diagnoses Medication monitoring encounter Chest pain, unspecified type Procedures Transthoracic echo (TTE) complete May Dickerson PA [address] [place] [address] [facility] [address], [address]st [place] [address] Referral ID Status Reason Start Date Expiration Date V isits Requested Visits Authorized [id number] Denied Perform Procedure 05/31/2022 11/27/2022 1 0 Reason for Visit * Auth/Cert (Routine) Specialty Diagnoses / Procedures Referred By Frantz moreno Referred To Contact Diagnoses 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 Procedures VA REPLACEMENT TISSUE PLASTIC PRINTER W/PERMANENT IMPLANT VA REVISION ANDRES-IMPLANT CAPSULE BREAST VA BREAST AUGMENTATION WITH IMPLANT TISSUE PLASTIC PRINTER REMOVAL BREAST CAPSULOTOMY LEFT BREAST SALINE IMPLANT FOR SEMENTRY Gregory Forrest MD [address] [place] [address] [facility] [address], 3rd [place] [address] Referral ID Status Reason Start Date Expiration Date Visits Re quested Visits Authorized [id number] Encounter Details Date Type Department Care Team (Latest Contact Info) Description 08/24/2022 10:40 AM EST - 08/24/2022 11:59 PM EST Hospital Encounter [facility] [address] [place] [address] Medication monitoring encounter; Chest pain, [...] surgery 03/16/2022 ergocalciferol (Vitamin D2) 1.25 MG (08738 UT) capsule 1 capsule (50,000 Units) 1 [...] Procedure Name Priority Date/Time Associated Diagnosis Comments TRANSTHORACIC ECHO (TTE) COMPLETE Routine 08/24/2022 11:58 AM EST Medication monitoring encounter Chest pain, unspecified type documented in this encounter Results * TRANSTHORACIC ECHO (TTE) COMPLETE (08/24/2022 11:58 AM EST) Anatomical Region Laterality Modality Ultrasound 08/24/2022 11:0 3 AM EST Narrative 08/24/2022 1:08 PM EST [facility] Cardiac Diagnostics Echo/Vascular [address] [place] [address] Web: [email or web address] Transthoracic Echocardiogram Patient: Juan, ? Study ?08/24/2022 ? Catie Rocha ?Date: : ? 1970 ??Height: ??64 in / ??Patient ??Outpatient ?162.6 cm status: Age: ? 51 ?Weight: ??217.5 lb Patient ??Echocardiography ?/ 98.9 ?? location Laboratory ?kg ? : Gender: ??F ? BMI/BSA: 37.4 ?kg/m^2 / ?2.03 m^2 HR: ?71 bpm ?BP: ?146 / 78 *Ordering Physician: * May Dickerson *Primary Care Provider: * Ricardo Contreras *Interpreting Physician: * Davy Hernandez *Multiple Drum Sander: * ROB Dumont Indications: ?? CHEST PAIN. Study data: ??Transthoracic echocardiogram. ??Procedure: Transthoracic echocardiography was performed. Image quality was adequate. The study was technically limited due to poor patient compliance, restricted patient mobility, chest wall deformity, body habitus, and breathing artifact. ??Complete 2D, complete spectral Doppler, and color Doppler. ??Location: ??Echo laboratory. ??Patient status: ??Outpatient. Conclusions Summary: 1. Left ventricle: The cavity size is normal. Wall thickness is ?? normal. Systolic function is normal. The estimated ejection ?? fraction is 55-60%. Wall motion is normal; there are no regional ?? wall motion abnormalities. Left ventricular diastolic function ?? parameters are normal. 2. Left atrium: The atrium is mildly dilated. Findings Left ventricle: ??The cavity size is normal. Wall thickness is normal. Systolic function is normal. The estimated ejection fraction is 55-60%. Wall motion is normal; there are no regional wall motion abnormalities. Left ventricular diastolic function parameters are normal. Right ventricle: ??The cavity size is normal. Systolic function is normal. Left atrium: ??The atrium is mildly dilated. Right atrium: ??The atrium is normal in size. Mitral valve: ?? The valve is structurally normal. ?There is no evidence of stenosis. ?? There is no regurgitation. Aortic valve: ?? The valve is structurally normal. The valve is trileaflet. ?? Cusp separation is normal. Transvalvular velocity is within the normal range. There is no evidence of stenosis. There is no regurgitation. Tricuspid valve: ?? The valve is structurally normal. ?There is no evidence of stenosis. ?? There is no regurgitation. Pulmonic valve: ?The valve is structurally normal. ?There is no evidence of stenosis. ?? There is no regurgitation. Aorta: ??The aortic root is not dilated. Pericardium: ??There is no pericardial effusion. Pulmonary arteries: Systolic pressure is within the normal range. Systemic veins: Inferior vena cava: The vessel is normal in size. Measurements Left ventricle ?Value ?11/02/2021 Ref ?? Ventricular septum ??Value ?11/02/2021 Ref LVIDd ? 4.3 ?cm ?3.9 ?3.8 ?? IVSd ? (H) ?1.1 ?? cm ? 1.0 ?0.6 ? - ? - ? 5.2 ? 0.9 LVIDs ? 3.3 ?cm ?2.6 ?2.2 ? - ? Right ventricle ? Value ?11/02/2021 Ref ? 3.5 ?? TAPSE, 2D ? 2.6 ?? cm ? 1.6 ?1.7 ESD/bsa, LAX ?1.6 ?cm/m^2 ??1.3 ?1.3 ? - ? - ? 3.1 ? 2.1 ?? RV S' ?(H) ?17.0 ??cm/sec 14.7 ? 6.0 LAX FS% ? (L) 25 ? % ? 34 ? 27 - ?- ? 45 ?13.4 LVLs A4C ?7.2 ?cm ?6.0 ?---- ESD/bsa major ? 3.5 ?cm/m^2 ??3.1 ?---- ??Left atrium ? Value ?11/02/2021 Ref ax, A4C ? LA Diam ?(H) ?4.0 ?? cm ? 3.8 ?2.7 LVLd A4C ?7.2 ?cm ?6.0 ?---- ?- ANGY/bsa minor ? 3.5 ?cm/m^2 ??3.1 ?---- ?3.8 ax, A4C ? LAAs A4C ?16.0 ??cm^2 ?? 17.4 ? <=20 LVLd A2C ?8.1 ?cm ?8.1 ?---- ?.0 LVLs A2C ?7.8 ?cm ?6.3 ?---- ??LAAs A2C ?18.1 ??cm^2 ?? 16.2 ? ---- ANGY/bsa major ? 4.0 ?cm/m^2 ??4.2 ?---- ??LAESV A4C ? 39 ?ml ? 45 ? 22 - ax, A2C ? 52 ESD/bsa major ? 3.9 ?cm/m^2 ??3.3 ?---- ??Vol/bsa, ?19 ?ml/m^2 23 ? 11 - ax, A2C ? ES, 1-p ? 40 LVPWd ? (H) 1.1 ?cm ?1.2 ?0.6 ?? A4C ? - ? LAESV A2C ? 49 ?ml ? 42 ? 22 - ? 0.9 ? 52 IVS/PW, ED ?1.08 ? 0.83 ? ---- ??LAESV ? 46 ?ml ? 47 ? ---- EDV ? 84 ? ml ?65 ? 46 - ??(A-L) ? 106 ?? Vol/bsa, ?23 ?ml/m^2 24 ? 16 - ESV ? (H) 43 ? ml ?24 ? 14 - ??ES, 2-p ? 34 ? 42 ?Vol/bsa, ?20 ?ml/m^2 25 ? 16 - LAX EF ?(L) 50 ? % ? 63 ? 54 - ??ES, A/L ? 34 ? 74 LVd Mass ?(H) 192 ?g ? 66 - ??Aortic valve ?Value ?11/02/2021 Ref ? 150 ?? AV Annulus ?2.1 ?? cm ? 2.2 ?1.9 Mass/bsa ?(H) 95 ? g/m^2 ?? 44 - ??Diam ?- ? 88 ?2.7 Mass/ht ? 118.34 g/m ? ---- ??Blossom ? 1.1 ?? cm/m^2 1.2 ?1.1 Mass/ht^2.7 ? 51.81 ??g/m^2.7 ---- ??diam/bsa, ? - LVEDV MOD A2C ? 107 ?ml ?72 ? 41 - ??S ? 1.5 ? 133 ?? Peak v, S ? 1.25 ??m/sec ??1.50 ? ---- LVESV MOD A2C ? 52 ? ml ?24 ? 10 - ??Mean v, S ? 0.87 ??m/sec ??1.06 ? ---- ? 54 ?VTI, S ?29.9 ??cm ? 28.7 ? ---- LV EF A2C ? (L) 51 ? % ? 67 ? 52 - ??Mean grad, ?3.48 ??mm Hg ??5.07 ? ---- ? 76 ?S SV MOD A2C ?55 ? ml ?48 ? ---- ??Peak grad, ?6.26 ??mm Hg ??8.95 ? ---- SV/bsa, 1-p ? 27 ? ml/m^2 ??25 ? ---- ??S A2C ? BRAIN, VTI ?2.79 ??cm^2 ?? 2.96 ? ---- LVEDV A4C ? 96 ? ml ?98 ? 48 - ??LVOT/AV, ?0.68 ? 0.64 ? ---- ? 140 ?? Vpeak ESV, 1-p A4C ?46 ? ml ?27 ? 12 - ??ratio ? 60 ?BRAIN, Vmax ? 2.83 ??cm^2 ?? 2.80 ? ---- LVEF A4C ?52 ? % ? 72 ? 46 - ? 78 ?Mitral valve ?Value ?11/02/2021 Ref SV MOD A4C ?50 ? ml ?71 ? ---- ??Peak E ?0.89 ??m/sec ??0.68 ? ---- EDV/bsa, 1-p ?47 ? ml/m^2 ??51 ? 30 - ??Peak A ?0.96 ??m/sec ??0.90 ? ---- A4C ? 82 ?Mean v, D ? 0.49 ??m/sec ??0.63 ? ---- ESV/bsa, 1-p ?23 ? ml/m^2 ??14 ? 7 - ?? MV VTI ?23.0 ??cm ? 22.3 ? ---- A4C ? 35 ?Decel time ?203 ?? ms ? 268 ?---- SV/bsa, 1-p ? 25 ? ml/m^2 ??37 ? ---- ??PHT ? 51 ?ms ? ---- A4C ? Mean grad, ?1.28 ??mm Hg ??1.80 ? ---- LVEDV BP ?(H) 124 ?ml ?91 ? 46 - ??D ? 106 ?? Peak grad, ?3.51 ??mm Hg ??3.50 ? ---- LVESV BP ?(H) 61 ? ml ?26 ? 14 - ??D ? 42 ?MV E/A ?0.92 ? 0.75 ? ---- LV EF, ?(L) 51 ? % ? 72 ? 54 - ??ratio biplane ? 74 ?MVA ? 3.7 ?? cm^2 ?? 3.4 ?---- EDV/bsa, 2-p ?61 ? ml/m^2 ??48 ? 29 - ??MVA, PHT ?4.3 ?? cm^2 ?? 4.3 ?---- ? 61 ESV/bsa, 2-p ??(H) 30 ? ml/m^2 ??13 ? 8 - ?? Aortic root ? Value ?11/02/2021 Ref ? 24 ?Sinuses of ?2.9 ?? cm ? 3.4 ?<4.2 LVd Mass ?(H) 172 ?g ? 67 - ??Valsalva (ASE) ? 162 ?? Root max ?1.4 ?? cm/m^2 1.8 ?1.4 Mass/ht, MM ?? (H) 106 ?g/m ? 41 - ??diam/bsa, ? - ? 99 ?ED ?2.2 Mass/ht^2.7, ?46 ? g/m^2.7 ---- ??Ao st ? 2.6 ?? cm ? ---- MM ?junct E', lat, TDI ??(L) 6.61 ?? cm/s ?7.06 ? >=10 ??S-T junct ? 1.3 ?? cm/m^2 ---- ? .00 ?? diam/bsa, E/e', lat, ?13.47 ?9.60 ? ---- ??S TDI E', sept, TDI (L) 6.98 ?? cm/s ?6.04 ? >=7. ??Ascending aorta ? Value ?11/02/2021 Ref ? 00 ?Ao asc ?2.9 ?? cm ? ---- E/e', sept, ? 12.74 ?11.22 ?---- ??AAo AP ?1.4 ?? cm/m^2 ---- TDI ? diam/bsa, E', avg, TDI ?6.80 ?? cm/s ?6.55 ? ---- ??S E/e', avg, ?13.09 ?10.35 ?<=14 TDI ? .00 LVOT ?Value ?11/02/2021 Ref LVOT Diam ? 2.30 ?? cm ?2.27 ? ---- LVOT Vmax ? 0.86 ?? m/sec ?? 0.95 ? ---- LVOT Vmean ?0.62 ?? m/sec ?? 0.65 ? ---- LVOT Max PG ? 3 ?mm Hg ?? 4 ?---- LVOT Mean PG ?2 ?mm Hg ?? 2 ?---- LVSV Dopp ? 83 ? ml ?75 ? ---- SV/bsa ?41 ? ml/m^2 ??39 ? ---- Legend: (L) ??and ??(H) ??saman values outside specified reference range. Prepared and electronically signed by Davy Hernandez 08/24/2022 13:08 Procedure Note Davy Hernandez MD - 08/24/2022 [facility] Cardiac Diagnostics Echo/Vascular [address] [place] [address] Web: [email or web address] Transthoracic Echocardiogram Patient: Juan Study 08/24/2022 Catie Rocha Date: : 1970 Height: 64 in / Patient Outpatient 162.6 cm status: Age: 51 Weight: 217.5 lb Patient Echocardiography / 98.9 location Laboratory kg : Gender: F BMI/BSA: 37.4 kg/m^2 / 2.03 m^2 HR: 71 bpm BP: 146 / 78 *Ordering Physician: * May Dickerson *Primary Care Provider: * Ricardo Contreras *Interpreting Physician: * Davy Hernandez *Multiple Drum Sander: * ROB Dumont Indications: CHEST PAIN. Study data: Transthoracic echocardiogram. Procedure: Transthoracic echocardiography was performed. Image quality was adequate. The study was technically limited due to poor patient compliance, restricted patient mobility, chest wall deformity, body habitus, and breathing artifact. Complete 2D, complete spectral Doppler, and color Doppler. Location: Echo laboratory. Patient status: Outpatient. Conclusions Summary: 1. Left ventricle: The cavity size is normal. Wall thickness is normal. Systolic function is normal. The estimated ejection fraction is 55-60%. Wall motion is normal; there are no regional wall motion abnormalities. Left ventricular diastolic function parameters are normal. 2. Left atrium: The atrium is mildly dilated. Findings Left ventricle: The cavity size is normal. Wall thickness is normal. Systolic function is normal. The estimated ejection fraction is 55-60%. Wall motion is normal; there are no regional wall motion abnormalities. Left ventricular diastolic function parameters are normal. Right ventricle: The cavity size is normal. Systolic function is normal. Left atrium: The atrium is mildly dilated. Right atrium: The atrium is normal in size. Mitral valve: The valve is structurally normal. There is no evidence of stenosis. There is no regurgitation. Aortic valve: The valve is structurally normal. The valve is trileaflet. Cusp separation is normal. Transvalvular velocity is within the normal range. There is no evidence of stenosis. There is no regurgitation. Tricuspid valve: The valve is structurally normal. There is no evidence of stenosis. There is no regurgitation. Pulmonic valve: The valve is structurally normal. There is no evidence of stenosis. There is no regurgitation. Aorta: The aortic root is not dilated. Pericardium: There is no pericardial effusion. Pulmonary arteries: Systolic pressure is within the normal range. Systemic veins: Inferior vena cava: The vessel is normal in size. Measurements Left ventricle Value 11/02/2021 Ref Ventricular septumValue 11/02/2021 Ref LVIDd 4.3 cm 3.9 3.8 IVSd (H) 1.1cm 1.0 0.6 -- 5.20.9 LVIDs 3.3 cm 2.6 2.2 - Right ventricleValue 11/02/2021 Ref 3.5 TAPSE, 2D 2.6cm 1.6 1.7 ESD/bsa, LAX 1.6 cm/m^2 1.3 1.3- -3.1 2.1 RV S' (H)17.0 cm/sec 14.7 6.0 LAX FS% (L) 25 % 34 27 -- 4513.4 LVLs A4C 7.2 cm 6.0 ---- ESD/bsa major 3.5 cm/m^2 3.1 ---- Left atriumValue 11/02/2021 Ref ax, A4C LA Diam (H) 4.0cm 3.8 2.7 LVLd A4C 7.2 cm 6.0 ----- ANGY/bsa minor 3.5 cm/m^2 3.1 ----3.8 ax, A4C LAAs A4C16.0 cm^2 17.4 <=20 LVLd A2C 8.1 cm 8.1 ----.0 LVLs A2C 7.8 cm 6.3 ---- LAAs A2C18.1 cm^2 16.2 ---- ANGY/bsa major 4.0 cm/m^2 4.2 ---- LAESV A4C 39ml 45 22 - ax, A2C52 ESD/bsa major 3.9 cm/m^2 3.3 ---- Vol/bsa, 19ml/m^2 23 11 - ax, A2C ES, 1-p40 LVPWd (H) 1.1 cm 1.2 0.6 A4C - LAESV A2C 49ml 42 22 - 0.952 IVS/PW, ED 1.08 0.83 ---- LAESV 46ml 47 ---- EDV 84 ml 65 46 - (A-L) 106 Vol/bsa, 23ml/m^2 24 16 - ESV (H) 43 ml 24 14 - ES, 2-p34 42 Vol/bsa, 20ml/m^2 25 16 - LAX EF (L) 50 % 63 54 - ES, A/L34 74 LVd Mass (H) 192 g 66 - Aortic valveValue 11/02/2021 Ref 150 AV Annulus 2.1cm 2.2 1.9 Mass/bsa (H) 95 g/m^2 44 - Diam- 882.7 Mass/ht 118.34 g/m ---- Blossom 1.1cm/m^2 1.2 1.1 Mass/ht^2.7 51.81 g/m^2.7 ---- diam/bsa,- LVEDV MOD A2C 107 ml 72 41 - S1.5 133 Peak v, S1.25 m/sec 1.50 ---- LVESV MOD A2C 52 ml 24 10 - Mean v, S0.87 m/sec 1.06 ---- 54 VTI, S29.9 cm 28.7 ---- LV EF A2C (L) 51 % 67 52 - Mean grad,3.48 mm Hg 5.07 ---- 76 S SV MOD A2C 55 ml 48 ---- Peak grad,6.26 mm Hg 8.95 ---- SV/bsa, 1-p 27 ml/m^2 25 ---- S A2C BRAIN, VTI2.79 cm^2 2.96 ---- LVEDV A4C 96 ml 98 48 - LVOT/AV,0.68 0.64 ---- 140 Vpeak ESV, 1-p A4C 46 ml 27 12 - ratio 60 BRAIN, Vmax2.83 cm^2 2.80 ---- LVEF A4C 52 % 72 46 - 78 Mitral valveValue 11/02/2021 Ref SV MOD A4C 50 ml 71 ---- Peak E0.89 m/sec 0.68 ---- EDV/bsa, 1-p 47 ml/m^2 51 30 - Peak A0.96 m/sec 0.90 ---- A4C 82 Mean v, D0.49 m/sec 0.63 ---- ESV/bsa, 1-p 23 ml/m^2 14 7 - MV VTI23.0 cm 22.3 ---- A4C 35 Decel time 203ms 268 ---- SV/bsa, 1-p 25 ml/m^2 37 ---- PHT 51ms ---- A4C Mean grad,1.28 mm Hg 1.80 ---- LVEDV BP (H) 124 ml 91 46 - D 106 Peak grad,3.51 mm Hg 3.50 ---- LVESV BP (H) 61 ml 26 14 - D 42 MV E/A0.92 0.75 ---- LV EF, (L) 51 % 72 54 - ratio biplane 74 MVA 3.7cm^2 3.4 ---- EDV/bsa, 2-p 61 ml/m^2 48 29 - MVA, PHT 4.3cm^2 4.3 ---- 61 ESV/bsa, 2-p (H) 30 ml/m^2 13 8 - Aortic rootValue 11/02/2021 Ref 24 Sinuses of 2.9cm 3.4 <4.2 LVd Mass (H) 172 g 67 - Valsalva (ASE) 162 Root max 1.4cm/m^2 1.8 1.4 Mass/ht, MM (H) 106 g/m 41 - diam/bsa,- 99 ED2.2 Mass/ht^2.7, 46 g/m^2.7 ---- Ao st 2.6cm ---- MM junct E', lat, TDI (L) 6.61 cm/s 7.06 >=10 S-T junct 1.3cm/m^2 ---- .00 diam/bsa, E/e', lat, 13.47 9.60 ---- S TDI E', sept, TDI (L) 6.98 cm/s 6.04 >=7. Ascending aortaValue 11/02/2021 Ref 00 Ao asc 2.9cm ---- E/e', sept, 12.74 11.22 ---- AAo AP 1.4cm/m^2 ---- TDI diam/bsa, E', avg, TDI 6.80 cm/s 6.55 ---- S E/e', avg, 13.09 10.35 <=14 TDI .00 LVOT Value 11/02/2021 Ref LVOT Diam 2.30 cm 2.27 ---- LVOT Vmax 0.86 m/sec 0.95 ---- LVOT Vmean 0.62 m/sec 0.65 ---- LVOT Max PG 3 mm Hg 4 ---- LVOT Mean PG 2 mm Hg 2 ---- LVSV Dopp 83 ml 75 ---- SV/bsa 41 ml/m^2 39 ---- Legend: (L) and (H) saman values outside specified reference range. Prepared and electronically signed by Davy Hernandez 08/24/2022 13:08 Mya [facility] CV ECHO PROCEDURES documented in this encounter Visit Diagnoses Diagnosis Medication monitoring encounter Encounter for therapeutic drug monitoring Chest pain, unspecified type documented in this encounter Care Teams Programming Specialist Relationship Specialty Start Date End Date Ricardo Contreras MD [address] [place] [id number] PCP - General Jalil Marie MD [address] [facility] [place] [address] Consulting Physician Hematology 04/12/22 Barbie Jorgensen APRN [address] [facility] [place] [address] Nurse Practitioner Oncology 06/21/22 documented as of this encounter
--- OUTSIDE RECORDS SUMMARY | 2024-08-18 13:10 | XMS_ITS | Encounter Summary ---
Author Organization [facility] nter Address [address] [place], [place] [address] [place] [address] Care Team Providers Care Plugger Man Name Role Phone Ricardo Contreras MD Primary Care Provider + Jalil Marie MD Unavailable [phone] Barbie Jorgensen APRN Unavailable [phone] Encounter Details Date Type Department Care Team (Latest Contact Info) Description 08/17/2022 Travel Social History Tobacco Use Types Packs/Day [...] on filedocumented in this encounter Care Teams Plugger Man Relationship Specialty Start Date End Date Ricardo Contreras MD [address] [place] [address] PCP - General Jalil Marie MD [address] [place] [address] Consulting Physician Hematology 04/12/22 Barbie Jorgensen APRN [address] [place] [address] Nurse Practitioner Oncology 06/21/22 documented as of this encounter
--- OUTSIDE RECORDS SUMMARY | 2024-08-18 13:10 | XMS_ITS | Encounter Summary ---
Author Organization [facility] nter Address [address] [place], [place] [address] [place] [address] Care Team Providers Care Airline Hostess Name Role Phone Ricrado Contreras MD Primary Care Provider + Jalil Marie MD Unavailable [phone] Barbie Jorgensen APRN Unavailable [phone] Encounter Details Date Type Department Care Team (Latest Contact Info) Description 09/08/2022 Travel Social History Tobacco Use Types Packs/Day [...] on filedocumented in this encounter Care Teams Airline Hostess Relationship Specialty Start Date End Date Ricardo Contreras MD [address] [place] [address] PCP - General Jalil Marie MD [address] [place] [address] Consulting Physician Hematology 04/12/22 Barbie Jorgensen APRN [address] [place] [address] Nurse Practitioner Oncology 06/21/22 documented as of this encounter
--- OUTSIDE RECORDS SUMMARY | 2024-08-18 13:10 | XMS_ITS | Encounter Summary ---
Author Organization [facility] nter Address [address] [place] [address] Care Team Providers Care Customer Assistance Associate Name Role Phone Ricardo Contreras MD Primary Care Provider + Jalil Marie MD Unavailable [phone] Barbie Jorgensen APRN Unavailable [phone] Reason for Referral * Clinic-Administered Medication (Routine) - Closed Specialty Diagnoses / Procedures Referred By Frantz moreno Referred To Contact Family Medicine Diagnoses Bronchitis Toney Sanchez NP [address] [facility] [address], [place] [address] [facility] [address] [facility] [place] [address] Referral ID Status Reason Start Date Expiration Date Visits Re quested Visits Authorized [id number] Closed 08/03/2022 01/30/2023 1 1 Reason for Visit * Reason Comments Cough Pt states she tested positive for covid 2 weeks ago. Pt also states she has had a cough since, to the point to where she cant sleep at night. Back Pain Lung pain, and think s she has pneumonia. * Clinic-Administered Medication (Routine) - Closed Specialty Diagnoses / Procedures Referred By Frantz moreno Referred To Contact Family Medicine Diagnoses Bronchitis Toney Sanchez NP [address] [facility] [address], [place] [id number] [facility] [address] [place] [address] Referral ID Status Reason Start Date Expiration Date Visits Re quested Visits Authorized [id number] Closed 08/03/2022 01/30/2023 1 1 Encounter Details Date Type Department Care Team (Late st Contact Info) Description 08/03/2022 2:00 PM EST Office Visit [facility]N [facility] [address] [place] [address] Toney Sanchez, SARA [address] [facility] [address], [address] [place] [address] Bronchitis (Primary Dx) Social History Tobacco Use Types [...] PM EST documented as of this encounter Last Filed Vital Signs Vital Sign Reading Time Taken Comments Blood Pressure 137/93 08/03/2022 2:16 PM EST Pulse 93 08/03/2022 2:16 PM EST Temperature 36.9 ??C (98.5 ??F) 08/03/2022 2:16 PM ES T Respiratory Rate 20 08/03/2022 2:16 PM EST Oxygen Saturation 97% 08/03/2022 2:16 PM EST Inhaled Oxygen Concentration - - Weight 97.1 kg (214 lb) 08/03/2022 2:16 PM EST Height 162.6 cm (5' 4 ) 08/03/2022 2:16 PM EST Body Mass Index 36.73 08/03/2022 2:16 PM EST documented in this encounter Plan of [...] 2:58 PM, Electronically Signed By: Samir CAREY Toney Sanchez NP IMG XR PROCEDURES documented in this encounter Visit Diagnoses Diagnosis Bronchitis- Primary Bronchitis, not specified as acute or chronic documented in this encounter Administered Medications Inactive Administered Medications - up to 3 most recent administrations Medication Order MAR Action Action Date Dose Rate Site cefTRIAXone (Rocephin) vial 1 g 1 g, Intramuscular, Once, On Nikki 08/03/22 at 1500, For 1 dose, Dilute 1 and 2 gram doses with 10mL sterile water for injection, administer over 2 minutes for adults., Suspected Indication (Select all that apply): Sinusitis/Other ENT, Type of Therapy: Empiric Given 08/03/2022 3:01 PM EST 1 g Left Ventrogluteal methylPREDNISolone sodium succinate (PF) (SOLU-Medrol) injection 125 mg 125 mg, Intramuscular, Once, On Nikki 08/03/22 at 1500, For 1 dose Given 08/03/2022 3:03 PM EST 125 mg Right Ventrogluteal documented in this encounter Care Teams Customer Assistance Associate Relationship Specialty Start Date End Date Ricardo Contreras MD [address] [place] [address] PCP - General Jalil Marie MD [address] [place] [address] Consulting Physician Hematology 04/12/22 Barbie Jorgensen APRN [address] [place] [address] Nurse Practitioner Oncology 06/21/22 documented as of this encounter
--- OUTSIDE RECORDS SUMMARY | 2024-08-18 13:10 | XMS_ITS | Encounter Summary ---
Author Organization [facility] nter Address [address] [place], [place] [id number] [place] [address] Care Team Providers Care Morning News Anchor Name Role Phone Ricardo Contreras MD Primary Care Provider + Jalil Marie MD Unavailable [phone] Barbie Jorgensen APRN Unavailable [phone] Encounter Details Date Type Department Care Team (Latest Contact Info) Description 08/24/2022 Travel Social History Tobacco Use Types Packs/Day [...] on filedocumented in this encounter Care Teams [employer] Anchor Relationship Specialty Start Date End Date Ricardo Contreras MD [address] [place] [address] PCP - General Jalil Marie MD [address] [place] [address] Consulting Physician Hematology 04/12/22 Barbie Jorgensen APRN [address] [place] [address] Nurse Practitioner Oncology 06/21/22 documented as of this encounter
--- OUTSIDE RECORDS SUMMARY | 2024-08-18 13:11 | XMS_ITS | Encounter Summary ---
Author Organization [facility] Address [address] [place] [address] Care Team Providers Care Physiotherapy Practice Manager Name Role Phone Ricardo Contreras MD Primary Care Provider + Jalil Marie MD Unavailable [phone] Reason for Visit * Reason Comments Follow-up Breast reconstructio n, denies any pain or complications Encounter Details Date Type Department Care Team (Late st Contact Info) Description 04/19/2022 8:15 AM EDT Office Visit [facility] [address] [place] [phone] Gregory Forrest MD [address] [place] [phone] Acquired absence of breast and absent nipple, right (Primary Dx); Ptosis of left breast Social History Tobacco Use Types Packs/Day Years Used Date Smoking Tobacco: Former Smokeless Tobacco: Never Sex and Gender Information Value Date Recorded Sex Assigned at Female 2021 11:11 AM EST Gender Identity Female 2021 11:11 AM EST Sexual Orientation Straight 2021 11 :11 AM EST COVID-19 Exposure Response Date Recorded In the last 10 days, have yo u been in contact with someone who was confirmed or suspected to have Coronavirus/COVID-19? No / Unsure 04/19/2022 8:27 AM EDT documented as of this encounter Progress Notes * Gregory Forrest MD - 04/19/2022 8:15 AM EDT Subjective : Patient ID: Catie Martinez is a 51 y.o. female. History of Present Illness: S/P rt breast delayed breast recon with TE/Alloderm, left mastopexy. Objective : Physical Exam Constitutional She appears well-developed and well-nourished. Eyes System normal. Pulmonary/Chest Effort normal. Skin Skin is warm. Psychiatric She has a normal mood and affect. Her behavior is normal. Rt uper drain scant amount. Jhon incisions healing well. Left nipple sensate. Assessment/Plan : 1. Acquired absence of breast and absent nipple, right 2. Ptosis of left breast Prevena removed. Silvadene BID. F/up 1 w. documented in this encounter Plan of Treatment Not on file documented as of this encounter Visit Diagnoses Diagnosis Acquired absence of breast and absent nipple, right- Primary Ptosis of left breast documented in this encounter Care Teams Physiotherapy Practice Manager Relationship Specialty Start Date End Date Ricardo Contreras MD [address] [place] [address] PCP - General Jalil Marie MD [address] [place] [phone] Consulting Physician Hematology 04/12/22 documented as of this encounter
--- OUTSIDE RECORDS SUMMARY | 2024-08-18 13:11 | XMS_ITS | Encounter Summary ---
Author Organization [facility] Address [address] [place], [place] [id number] [place] [address] Care Team Providers Care Business Functional Analyst Name Role Phone Ricardo Contreras MD Primary Care Provider + Jalil Marie MD Unavailable [phone] Encounter Details Date Type Department Care Team (Latest Contact Info) Description 05/24/2022 Travel Social History Tobacco Use Types Packs/Day [...] suspected to have Coronavirus/COVID-19? No / Unsure 05/24/2022 8:36 AM EDT documented as of this encounter Plan of Treatment Not on file documented as of this encounter Visit Diagnoses Not on filedocumented in this encounter Care Teams Business Functional Analyst Relationship Specialty Start Date End Date Ricardo Contreras MD [address] [place] [address] PCP - General Jalil Marie MD [address] [place] [id number] Consulting Physician Hematology 04/12/22 documented as of this encounter
--- OUTSIDE RECORDS SUMMARY | 2024-08-18 13:11 | XMS_ITS | Encounter Summary ---
Author Organization [facility] Address [address] [place], [place] [address] [place] [id number] Care Team Providers Care Rod Cup Filler Name Role Phone Ricardo Contreras MD Primary Care Provider + Jalil Marie MD Unavailable [phone] Encounter Details Date Type Department Care Team (Latest Contact Info) Description 06/14/2022 Travel Social History Tobacco Use Types Packs/Day Years Used Date Smoking Tobacco: Former Smokeless Tobacco: Never Alcohol Use Standard Drinks/Week [...] suspected to have Coronavirus/COVID-19? No / Unsure 06/14/2022 8:19 AM EDT documented as of this encounter Plan of Treatment Not on file documented as of this encounter Visit Diagnoses Not on filedocumented in this encounter Care Teams Rod Cup Filler Relationship Specialty Start Date End Date Ricardo Contreras MD [address] [place] [address] PCP - General Jalil Marie MD [address] [facility] [place] [phone] Consulting Physician Hematology 04/12/22 documented as of this encounter
--- OUTSIDE RECORDS SUMMARY | 2024-08-18 13:11 | XMS_ITS | Encounter Summary ---
Author Organization [facility] Address [address] [place] [id number] Care Team Providers Care Front End Developer Name Role Phone Ricardo Conterras MD Primary Care Provider + Jalil Marie MD Unavailable [phone] Encounter Details Date Type Department Care Team (Late st Contact Info) Description 05/10/2022 11:00 AM EDT Office Visit [facility] [address] [place] [phone] Gregory Forrest MD [address] [place] [phone] Acquired absence of breast and absent [...] suspected to have Coronavirus/COVID-19? No / Unsure 05/10/2022 11:05 AM EDT documented as of this encounter Progress Notes * Gregory Forrest MD - 05/10/2022 11:00 AM EDT Subjective : Patient ID: Catie Martinez is a 51 y.o. female. History of Present Illness: S/p rt TE/Alloderm, left mastopexy Objective : Physical Exam Constitutional She appears well-developed and well-nourished. Cardiovascular: Normal rate. Pulmonary/Chest Effort normal. Skin Skin is warm. Psychiatric She has a normal mood and affect. Her behavior is normal. Rt TE in place. Left breast ptosis. Assessment/Plan : 1. Acquired absence of breast and absent nipple, right 2. Ptosis of left breast Sterile technique. 100 ml NS placed in Rt TE with sterile transfe. Pt tolerated procedure well. F/up 1 w. Total 340 ml in Rt TE. documented in this encounter Plan of Treatment Not on file documented as of this encounter Visit Diagnoses Diagnosis Acquired absence of breast and absent nipple, right- Primary Ptosis of left breast documented in this encounter Care Teams Front End Developer Relationship Specialty Start Date End Date Ricardo Contreras MD [address] [place] [address] PCP - General Jalil Marie MD [address] [place] [phone] Consulting Physician Hematology 04/12/22 documented as of this encounter
--- OUTSIDE RECORDS SUMMARY | 2024-08-18 13:11 | XMS_ITS | Encounter Summary ---
Author Organization [facility] Address [address] [place] [address] Care Team Providers Care Environmental Health Inspector Name Role Phone Ricardo Contreras MD Primary Care Provider + Jalil Marie MD Unavailable [phone] Barbie Jorgensen EXECUTIVE ADMINISTRATIVE ASST Unavailable [phone] Reason for Visit * Reason Comments Malignant neoplasm of nipple, right fema le breast Follow-up Encounter Details Date Type Department Care Team (Late st Contact Info) Description 06/21/2022 9:30 AM EDT Office Visit [facility] [address] [place] [address] Barbie Jorgensen, LONI [address] [place] [address] 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, unspecified estrogen receptor status (Primary Dx) Social History Tobacco Use Types [...] Sign Reading Time Taken Comments Blood Pressure 149/82 06/21/2022 9:49 AM EDT Pulse 83 06/21/2022 9:49 AM EDT Temperature 36.7 ??C (98.1 ??F) 06/21/2022 9:49 AM ED T Respiratory Rate 18 06/21/2022 9:49 AM EDT Oxygen Saturation 97% 06/21/2022 9:49 AM EDT Inhaled Oxygen Concentration - - Weight 100 kg (221 lb 6.4 oz) 06/21/2022 9:49 AM EDT Height - - Body Mass Index 39.22 05/31/2022 11:50 AM EDT documented in this encounter Progress Notes * Barbie Jorgensen NP - 06/21/2022 9:30 AM EDT Images from the original note were not included. Patient ID: Catie Martinez is a 51 y.o. female. Referring Physician: No referring provider defined for this encounter. Primary Care Provider: Ricardo Contreras MD Subjective HPI 12/28/2015: DIAGNOSIS; Endometrium, Biopsy: Mid-secretory phase endometrium. Negative for hyperplasia or malignancy. SEE COMMENT (Comment; The accompanying cervical cytology is negative.) ?? 01/07/2016: DIAGNOSIS; Endometrial tissue, D and C: Proliferative phase endometrium. Negative for hyperplasia and malignancy. ?? 04/08/20: MA SCREENING BILAT, IMPRESSION : No mammographic evidence of malignancy. BIRADS: BIRADS 0.Further imaging evaluation required. ?? 05/14/20: US BREAST RT, IMPRESSION : 19 mm right breast lesion 11:00 as above. BI- RADS: 4. Suspicious. ?? 05/14/20: MA MAMMO DIAG RT W/JORGE A, IMPRESSION : 19 mm right breast lesion 11:00 as above. BI-RADS: 4.Suspicious. ?? 05/16/20: CT PELVIS W/O CONT. IMPRESSION : No acute findings. ?? 05/16/20: CT SPINE LUMBAR W/O CONT, IMPRESSION : No acute findings. ?? 07/08/20: DIAGNOSIS; Right breast mass, biopsy: Invasive moderately differentiated ductal carcinoma. Greatest dimension 1.0 cm. Negative for lymphovascular invasion. David Grade II/III (2 +2+1).Negative for intraductal carcinoma. Negative for necrosis ?? 08/04/20: FROZEN SECTION DIAGNOSIS, 1. Basin Lymph Node #1, Excision (1FS1): -Negative for macrometastasis. 2. Basin Lymph Node #2, Excision (2FS1): - Negative for macrometastasis. DIAGNOSIS, 1. Basin Lymph Node #1, Excision (1FS1): -One lymph node is negative for malignancy. 2. Basin Lymph Node #2, Excision (2FS1): -One lymph node is negative for malignancy. 3. Basin Lymph Node #3, Excision: -One lymph node [...] Benefit - <1%, 10.0 ER Positive, 9.0 WA Positive, 8.9 HER2 Negative ?? 09/16/20: US [...] are clear. No pleural effusion or pneumothorax. ?? 11/01/20: Dexa: normal 12/08/2020: CT chest: small 3 mm pulmonary nodule === 06/14/22 === CT CHEST W IV CONTRAST - Impression - 1. Minimal scattered areas of scarring/atelectasis. No suspicious mass. Scattered small nodules measuring up to 2 to 3 mm, unchanged. 2. Status post right mastectomy with reconstruction and tissue veterinary hospital attendant in place. 3. Other chronic findings as noted. Report Sign Date: 06/14/2022 10:48 AM, Electronically Signed By: Roverto Rucker MD Review of Systems Musculoskeletal: Right breast pain Skin: Red and peeling around surgical site All other systems reviewed and are negative. Objective BSA: 2.02 meters squared BP 149/82 (BP Location: Left arm, Patient Position: Sitting, BP Cuff Size: Adult) Pulse 83 Temp98.1 ??F (36.7 ??C) (Oral) Resp 18 Wt 221 lb 6.4 oz (100 kg) SpO2 97% BMI 39.22 kg/m?? Physical Exam Constitutional: General: She is not in acute distress. HENT: Head: Normocephalic. Eyes: Pupils: Pupils are equal, round, and reactive to light. Cardiovascular: Rate and Rhythm: Normal rate and regular rhythm. Heart sounds: No murmur heard. Pulmonary: Effort: No respiratory distress. Breath sounds: Normal breath sounds. No wheezing or rales. Chest: Breasts: Right: Absent. Abdominal: General: Bowel sounds are normal. There is no distension. Tenderness: There is no abdominal tenderness. Skin: General: Skin is warm and dry. Neurological: Mental Status: She is alert and oriented to person, place, and time. Psychiatric: Mood and Affect: Mood normal. Performance Status: Symptomatic; fully ambulatory Pain Scale: 7 Lab Results Component Value Date WBC 7.2 06/21/2022 HGB 12.6 06/21/2022 HCT 37.1 06/21/2022 PLT 248 06/21/2022 LDH 204 (H) 08/19/2020 CREATININE 1.20 (H) 06/21/2022 AST 18 06/21/2022 CEA 4.0 (H) 04/12/2022 Assessment/Plan Cancer Staging No matching staging information was found for the patient. 1. 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 Duarte on July 08, 2020 with pathology showing 15 mm IDC, negative margins with 0.5 cm the closest margin, grade 2, ER positive at 100%, WA +100%, and HER-2 new negative on immunohistochemistry. [...] headache or bone pain. Planned to exchange veterinary hospital attendant for implant the end of the month. Follows with plastics Sunday. Today right breast with peeling area over proximal area of scar. No drainage. Reviewed labs. Stable Plan: Continue Arimidex, calcium +D. Refill E-scribed Prolia for fracture prevention FU 3 months Orders: - Comprehensive metabolic panel - CBC auto differential - Clinic Appointment Request Follow up; BARBIE JORGENSEN; Future Other orders - anastrozole (Arimidex) 1 MG chemo tablet; Take 1 tablet (1 mg total) by mouth in the morning. [No matching plan found] documented in this encounter Miscellaneous Notes * Patient Education - Barbie Jorgensen, DIRECTOR MONEY - 06/21/2022 9:41 AM EDT Patient Education Table of Contents Breast Cancer, Female To view videos and all your education online visit, [email or web address] or scan this QR code with your smartphone. Breast Cancer, Female Breast cancer is a [...] Being older than 55 years of age. Race and ethnicity. women generally have an increased risk, but -Al[place]ian women are more likely to develop the disease before age 45. Having a family history of breast cancer. Having had breast cancer in the past. Having certain noncancerous conditions of the breast, such as dense breast tissue. Having the BRCA1 and BRCA2 genes. Having a history of radiation exposure. Obesity. Starting menopause after age 55. Starting your menstrual periods before age 12. Having never been or having your first child after age 30. Having never breastfed. Using hormone therapy after menopause. Using control pills. Drinking more than one alcoholic drink a day. Exposure to the drug RODRIGUEZ, which was given to women from the 1940s to the 1970s. What are the signs or symptoms? Symptoms [...] imaging tests, such as breast X-rays (mammogram), breast ultrasound exams, or an MRI. Taking a tissue sample (biopsy) from [...] not spread to other breast tissue. Stage I?The cancer is only found in the breast or may be in the lymph nodes. The tumor may be up to? in (2 cm) wide. Stage II?The cancer has spread to nearby lymph nodes. The tumor may be up to 2 in (5 cm) wide. Stage III?The cancer has spread to more distant lymph nodes. The tumor may be larger than 2 in (5 cm) wide. Stage IV?The cancer has spread to other parts of [...] cells. Chemotherapy, which is the use of drugs to kill cancer cells. Hormone therapy, which involves taking medicine to adjust the hormone levels in your body. You may take medicine to decrease your estrogen levels. This can help stop cancer cells from growing. Targeted therapy, in which drugs are used to block the growth and spread of cancer cells. These drugs target a specific part of the cancer cell and usually cause fewer side effects than chemotherapy.Targeted therapy may be used alone or in combination with chemotherapy. A combination of surgery, radiation, chemotherapy, or hormone therapy may be needed to treat breastcancer. Follow these instructions at home: Take [id number] and prescription medicines only as told by your health care provider. Eat a healthy diet. A healthy diet includes lots of fruits and vegetables, low- fat dairy products, lean meats, and fiber. Make sure half your plate is filled with fruits or vegetables. Choose high-fiber foods such as whole-grain breads and cereals. Consider joining a support group. This may help you learn to cope with the stress of having breast cancer. Talk to your health care team about exercise and physical activity. The right exercise program can: Help prevent or reduce symptoms such as fatigue or depression. Improve overall health and survival rates. Keep all follow-up visits as told by your health care provider. This is important. Where to find more information [place] [employer]: www.cancer.org National Cancer [place]: www.cancer.gov Contact a health care provider if: [...] You have chest pain or trouble breathing. You faint. Summary Breast cancer is a malignant growth [...] health care provider. Document Released: 12/05/2006Document Revised: 08/09/2018Document Reviewed: 04/22/2018 [employer] Patient Education ? 2021 [employer] * Assessment & Plan Note - Doris Daniel - 06/21/2022 9:33 AM EDTAssociated Problem(s): Malignant neoplasm of upper-outer quadrant of right breast in female, estrogen receptor positive Perimenopausal white female who was found to have right breast cancer status post right mastectomy by Dr. Duarte on July 08, 2020 with pathology showing 15 mm IDC, negative margins with 0.5 cm the closest margin, grade 2, ER positive at 100%, WA +100%, and HER-2 new negative on immunohistochemistry. [...] headache or bone pain. Planned to exchange veterinary hospital attendant for implant the end of the month. 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, unspecified estrogen receptor status documented in this encounter Results * CBC auto differential (06/21/2022 9:30 AM EDT) Auto WBC 7.2 3.0 - 11.3 10*3/uL LAB HEMATOLOGY METHOD 06/21/2022 10:43 AM [facility] RBC 4.41 3.45 - 5.40 10*6/uL LAB HEMATOLOGY METHOD 06/21/2022 10:43 AM [facility] Hemoglobin 12.6 10.0 - 16.0 g/dL LAB HEMATOLOGY METHOD 06/21/2022 10:43 AM [facility] Hematocrit 37.1 29.9 - 45.5 % LAB HEMATOLOGY METHOD 06/21/2022 10:43 AM [facility] MCV 84.2 78.2 - 101.8 fL LAB HEMATOLOGY METHOD 06/21/2022 10:43 AM [facility] MCH 28.5 26.4 - 33.3 pg LAB HEMATOLOGY METHOD 06/21/2022 10:43 AM [facility] MCHC 33.9 32.5 - 35.3 g/dL LAB HEMATOLOGY METHOD 06/21/2022 10:43 AM [facility] RDW 13.4 10.1 - 16.2 % LAB HEMATOLOGY METHOD 06/21/2022 10:43 AM [facility] MPV 7.8 6.4 - 10.4 fL LAB HEMATOLOGY METHOD 06/21/2022 10:43 AM [facility] Neutrophils % 60 43 - 83 % LAB HEMATOLOGY METHOD 06/21/2022 10:43 AM [facility] Lymphocytes % 30 10 - 42 % LAB HEMATOLOGY METHOD 06/21/2022 10:43 AM [facility] Monocytes % 7 1 - 14 % LAB HEMATOLOGY METHOD 06/21/2022 10:43 AM [facility] Eosinophils % 2 0 - 11 % LAB HEMATOLOGY METHOD 06/21/2022 10:43 AM [facility] Basophils % 1 0 - 2 % LAB HEMATOLOGY METHOD 06/21/2022 10:43 AM [facility] Neutrophils Absolute 4.30 3.40 - 7.00 10*3/uL LAB HEMATOLOGY METHOD 06/21/2022 10:43 AM [facility] Lymphocytes Absolute 2.20 0.40 - 3.90 10*3/uL LAB HEMATOLOGY METHOD 06/21/2022 10:43 AM [facility] Monocytes Absolute 0.50 0.20 - 0.60 10*3/uL LAB HEMATOLOGY METHOD 06/21/2022 10:43 AM [facility] Eosinophils Absolute 0.20 0.00 - 0.90 10*3/uL LAB HEMATOLOGY METHOD 06/21/2022 10:43 AM [facility] Basophils Absolute 0.00 0.00 - 0.20 10*3/uL LAB HEMATOLOGY METHOD 06/21/2022 10:43 AM [facility] Platelets 248 122 - 454 10*3/uL LAB HEMATOLOGY METHOD 06/21/2022 10:43 AM [facility] Blood Venous blood specimen / Unknown Venipuncture / Unknown 06/21/2022 9:30 AM EDT 06/21/2022 10:00 AM EDT Barbie Jorgensen APRN LAB BLOOD ORDERABLES [facility] [address] [place] [address], * (ABNORMAL) Comprehensive metabolic panel (06/21/2022 9:30 AM EDT) Sodium 136 133 - 144 mmol/L 06/21/2022 10:37 AM [facility] Potassium 4.2 3.6 - 5.2 mmol/L 06/21/2022 10:37 AM [facility] Comment:Specimen slightly he molyzed. Results may be falsely elevated. Chloride 106 98 - 107 mmol/L 06/21/2022 10:37 AM [facility] CO2 25 21 - 32 mmol/L 06/21/2022 10:37 AM [facility] Anion Gap 5 5 - 15 mmol/L 06/21/2022 10:37 AM [facility] BUN 21(H) 7 - 18 mg/dL 06/21/2022 10:37 AM [facility] Creatinine 1.20(H) 0.55 - 1.02 mg/dL 06/21/2022 10:37 AM [facility] BUN/Creatinine Ratio 17.50 10.00 - 20.00 ratio 06/21/2022 10:37 AM [facility] Glucose 309(H) 70 - 110 mg/dL 06/21/2022 10:37 AM [facility] Calcium 8.9 8.5 - 10.1 mg/dL 06/21/2022 10:37 AM [facility] AST 18 15 - 37 U/L 06/21/2022 10:37 AM [facility] Comment:Specimen slightly he molyzed. Results may be falsely elevated. ALT (SGPT) 22 13 - 56 U/L 06/21/2022 10:37 AM [facility] Alkaline Phosphatase 115 45 - 117 U/L 06/21/2022 10:37 AM [facility] Total Protein 7.3 6.4 - 8.4 g/dL 06/21/2022 10:37 AM [facility] Albumin 3.0(L) 3.4 - 5.0 g/dL 06/21/2022 10:37 AM [facility] Globulin, Total 4.3 2.4 - 4.8 g/dL 06/21/2022 10:37 AM [facility] A/G Ratio <1.0 0.6 - 1.6 06/21/2022 10:37 AM [facility] Total Bilirubin 0.2 0.0 - 1.0 mg/dL 06/21/2022 10:37 AM EDT [facility] eGFR 53.2(L) >60.0 - 200.0 mL/min/1.7 3m*2 06/21/2022 10:37 AM EDT [facility] Blood Venous blood specimen / Unknown Venipuncture / Unknown 06/21/2022 9:30 AM EDT 06/21/2022 10:00 AM EDT Barbie Jorgensen APRN LAB BLOOD ORDERABLES [facility] [address] [place] [address], documented in this encounter Visit Diagnoses Diagnosis 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
--- OUTSIDE RECORDS SUMMARY | 2024-08-18 13:11 | XMS_ITS | Encounter Summary ---
Author Organization [facility] Address [address] [place] [id number] Care Team Providers Care Scoop Operator Name Role Phone Ricardo Contreras MD Primary Care Provider + Jalil Marie MD Unavailable [phone] Encounter Details Date Type Department Care Team (Late st Contact Info) Description 04/26/2022 9:00 AM EDT Office Visit [facility] [address] [place] [phone] Gregory Forrest MD [address] [place] [phone] Acquired absence of breast and absent [...] suspected to have Coronavirus/COVID-19? No / Unsure 04/26/2022 8:52 AM EDT documented as of this encounter Progress Notes * Gregory Forrest MD - 04/26/2022 9:00 AM EDT Subjective : Patient ID: Catie Martinez is a 51 y.o. female. History of Present Illness: S/p rt TE/Alloderm, left mastopexy. Objective : Physical Exam Rt drain scant amount. Rt chest and left breast incisions healing well. Left nipple sensate. Assessment/Plan : 1. Acquired absence of breast and absent nipple, right 2. Ptosis of left breast Rt drain removed. Bactroban BID. Silvadene BID to incisions. F/up 1 w for expansion. documented in this encounter Plan of Treatment Not on file documented as of this encounter Visit Diagnoses Diagnosis Acquired absence of breast and absent nipple, right- Primary Ptosis of left breast documented in this encounter Care Teams Scoop Operator Relationship Specialty Start Date End Date Ricardo Contreras MD [address] [place], [place] [id number] PCP - General Jalil Marie MD [address] [place] [phone] Consulting Physician Hematology 04/12/22 documented as of this encounter
--- OUTSIDE RECORDS SUMMARY | 2024-08-18 13:11 | XMS_ITS | Encounter Summary ---
Author Organization [facility] nter Address [address] [place], [place] [id number] [place] [address] Care Team Providers Care Leather Belt Maker Name Role Phone Ricardo Contreras MD Primary Care Provider + Jalil Marie MD Unavailable [phone] Encounter Details Date Type Department Care Team (Latest Contact Info) Description 05/01/2022 Travel Social History Tobacco Use Types Packs/Day [...] suspected to have Coronavirus/COVID-19? No / Unsure 05/01/2022 9:20 AM EDT documented as of this encounter Plan of Treatment Not on file documented as of this encounter Visit Diagnoses Not on filedocumented in this encounter Care Teams Leather Belt Maker Relationship Specialty Start Date End Date Ricardo Contreras MD [address] [place] [address] PCP - General Jalil Marie MD [address] [place] [phone] Consulting Physician Hematology 04/12/22 documented as of this encounter
--- OUTSIDE RECORDS SUMMARY | 2024-08-18 13:11 | XMS_ITS | Encounter Summary ---
Author Organization [facility] nter Address [address] [place] [id number] Care Team Providers Care Maple Sugar Maker Name Role Phone Ricardo Contreras MD Primary Care Provider + Jalil Marie MD Unavailable Encounter Details Date Type Department Care Team (Late st Contact Info) Description 05/10/2022 Abstract [facility] [address] [place] [phone] Gregory Forrest MD [address] [place] [phone] Social History Tobacco Use Types Packs/Day [...] on filedocumented in this encounter Care Teams Maple Sugar Maker Relationship Specialty Start Date End Date Ricardo Contreras MD [address] [place] [address] PCP - General Jalil Marie MD [address] [place] [phone] Consulting Physician Hematology 04/12/22 documented as of this encounter
--- OUTSIDE RECORDS SUMMARY | 2024-08-18 13:11 | XMS_ITS | Encounter Summary ---
Author Organization [facility] nter Address [address] [place] [address] Care Team Providers Care Fondant Cooker Name Role Phone Ricardo Contreras MD Primary Care Provider + Jalil Marie MD Unavailable Reason for Referral * Cardiac Stress Testing (Routine) - Closed Specialty Diagnoses / Procedures Referred By Contac t Referred To Contact Cardiology Diagnoses Medication monitoring encounter Chest pain, unspecified type Procedures Stress test with myocardial perfusion May Dickerson PA [address] [place] [address] Referral ID Status Reason Start Date Expiration Date Visits Re quested Visits Authorized [id number] Closed 05/31/2022 11/27/2022 3 3 * Imaging (Routine) - Denied Specialty Diagnoses / Procedures Referred By Contcurly moreno Referred To Contact Cardiology Diagnoses Medication monitoring encounter Chest pain, unspecified type Procedures Transthoracic echo (TTE) complete May Dickerson PA [address] [place] [address] [facility] [address] [place] [address] Referral ID Status Reason Start Date Expiration Date V isits Requested Visits Authorized [id number] Denied Perform Procedure 05/31/2022 11/27/2022 1 0 Reason for Visit * Reason Comments Follow-up Results of heart mon itor Encounter Details Date Type Department Care Team (Late st Contact Info) Description 05/31/2022 11:15 AM EDT Office Visit [facility] [address] [place] [address] Kiara Almodovar NP [address] [place] [address] Chest pain, unspecified type (Primary Dx); Medication monitoring encounter Social History Tobacco Use Types Packs/Day [...] suspected to have Coronavirus/COVID-19? No / Unsure 05/31/2022 11:10 AM EDT documented as of this encounter Last Filed Vital Signs Vital Sign Reading Time Taken Comments Blood Pressure 135/86 05/31/2022 11:50 AM EDT Pulse - - Temperature - - Respiratory Rate 20 05/31/2022 11:50 AM EDT Oxygen Saturation 94% 05/31/2022 11:50 AM EDT Inhaled Oxygen Concentration - - Weight 99.8 kg (220 lb) 05/31/2022 11:50 AM EDT Height 160 cm (5' 3 ) 05/31/2022 11:50 AM EDT Body Mass Index 38.97 05/31/2022 11:50 AM EDT documented in this encounter Progress Notes * JAYCEE Palacios - 05/31/2022 11:15 AM EDT Subjective HPI 51 yof with PMH of HTN, HLD, DM, breast cancer s/p mastectomy presents to clinic for f/u. Patient reports some intermittent episodes of substernal, nonexertional, chest pain that occurs ~1x every 2 weeks. CP lasts ~30 minutes and relieves spontaneously. Non radiating and associated symptom of SOA. Patient is a prior smoker. FH of premature CAD. Review of Systems Cardiovascular: Positive for chest pain. Objective Visit Vitals BP 135/86 (BP Location: Right arm, Patient Position: Sitting, BP Cuff Size: Adult) Resp 20 Ht 5' 3 (1.6 m) Wt 220 lb (99.8 kg) SpO2 94% BMI 38.97 kg/m?? Smoking Status Former Smoker BSA 2.01 m?? Physical Exam Constitutional: Appearance: Normal appearance. HENT: Head: Normocephalic and atraumatic. Eyes: Pupils: Pupils are equal, round, and reactive to light. Cardiovascular: Rate and Rhythm: Normal rate and regular rhythm. Pulses: Normal pulses. Heart sounds: Normal heart sounds. Pulmonary: Effort: Pulmonary effort is normal. Breath sounds: Normal breath sounds. Neurological: Mental Status: She is alert and oriented to person, place, and time. IMPRESSION/PLAN 1. Chest pain, unspecified type -chest pain as listed above in HPI -will schedule patient for lexiscan stress test as patient cannot walk on treadmill 2/2 knee and back pain -2D echo to be done -will prescribe nitroglycerin slg prn -continue to monitor documented in this encounter Plan of Treatment Not on file documented as of this encounter Procedures Procedure Name Priority Date/Time Associated Diagnosis Comments ECG 12-LEAD Today 05/31/2022 11:52 AM EDT Medication monitoring encounter documented in this encounter Results * TRANSTHORACIC ECHO (TTE) COMPLETE (08/24/2022 11:58 AM EST) Anatomical Region Laterality Modality Ultrasound 08/24/2022 11:0 3 AM EST Narrative 08/24/2022 1:08 PM EST [facility] Echo/Vascular [address] [place] [address] Web: [email or web address] Transthoracic Echocardiogram Patient: Juan, ? Study ?08/24/2022 ? Catie Rocha ?Date: : ? 1970 ??Height: ??64 in / ??Patient ??Outpatient ?162.6 cm status: Age: ? 51 ?Weight: ??217.5 lb Patient ??Echocardiography ?/ 98.9 ?? location Laboratory ?kg ? : Gender: ??F ? BMI/BSA: 37.4 ?kg/m^2 / ?2.03 m^2 HR: ?71 bpm ?BP: ?146 / 78 *Ordering Physician: * May DickersonPrimary Care Provider: * Ricardo Contreras *Interpreting Physician: * Davy Hernandez *Healthcare Business Analyst: * ROB Dumont Indications: ?? CHEST PAIN. [...] Procedure Note Davy Hernandez MD - 08/24/2022 [facility] Echo/Vascular [address] [place] [address] Web: [email or web address] Transthoracic Echocardiogram Patient: Juan Study 08/24/2022 Catie [...] Ricardo Contreras *Interpreting Physician: * Davy Hernandez *Healthcare Business Analyst: * ROB Dumont Indications: CHEST PAIN. Study [...] electronically signed by Davy Hernandez 08/24/2022 13:08 May [facility] CV ECHO PROCEDURES * STRESS TEST, REGADENOSON W MYOCARDIAL PERFUSION SPECT (MULTI STUDY) (08/24/2022 10:52 AM EST) Anatomical Region Laterality Modality Nuclear Medicine 08/24/2022 10:1 8 AM EST Narrative 08/24/2022 2:26 PM EST *[facility]* [facility] [address] [place] [address] Fax #: [facility] Nuclear Cardiology [address] [place] [address] Web: [email or web address] 1-day ??Regadenoson (Lexiscan) ??Myocardial Perfusion Imaging Rest/Stress [...] Taiwo Martin MD - 08/24/2022 *[facility] [place]* [employer] [address] [address] Fax #: [facility] Nuclear Cardiology [address] [place] [address] Web: [email or web address] 1-day Regadenoson (Lexiscan) Myocardial Perfusion Imaging Rest/Stress Patient: Catie Martinez Study Date: 08/24/2022 Josefina : 1970 Height: / Patient status: Age: 51 Weight: / Patient location: Gender: F BMI/BSA: / *Ordering Physician: * May DickersonPrimary Care Provider: * Ricardo Contreras *Interpreting Physician: * Taiwo Martin MD *Technologist: * Wililam Miguel Samuel Summary: 1. Myocardial perfusion imaging: No myocardial [...] 08/24/2022 14:25 May [facility] CV STRESS PROCEDURES * ECG 12 lead (05/31/2022 11:52 AM EDT) 05/31/2022 11:5 2 AM EDT Narrative [facility] - 05/31/2022 11:52 AM EDT SINUS RHYTHM WITH SHORT [place] INTERVAL NONSPECIFIC ST & T-WAVE ABNORMALITY BORDERLINE ECG UNCONFIRMED REPORT Kiara Almodovar NP ECG ORDERABLES [facility] [address] [place] [address], documented in this encounter Visit Diagnoses Diagnosis Chest pain, unspecified type- Primary Medication monitoring encounter Encounter for therapeutic drug monitoring Medication monitoring encounter Encounter for therapeutic drug monitoring Chest pain, unspecified type Medication monitoring encounter Encounter for therapeutic drug monitoring Chest pain, unspecified type documented in this encounter Care Teams Fondant Cooker Relationship Specialty Start Date End Date Ricardo Contreras MD [address] [place] [address] PCP - General Jalil Marie MD [address] [place] [phone] Consulting Physician Hematology 04/12/22 documented as of this encounter
--- OUTSIDE RECORDS SUMMARY | 2024-08-18 13:11 | XMS_ITS | Encounter Summary ---
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, unspecified estrogen receptor status Procedures CT chest wo IV contrast Jalil Marie MD [address] [place] [address] Referral ID Status Reason Start Date Expiration Date Visits Re quested Visits Authorized [id number] Denied 04/12/2022 10/09/2022 1 0 Encounter Details Date Type Department Care Team (Late st Contact Info) Description 04/12/2022 11:00 AM EDT Office Visit [facility] [address] [place] [address] Jalil Marie MD [address] [place] [address] Malignant neoplasm of nipple of [...] Sign Reading Time Taken Comments Blood Pressure 157/79 04/12/2022 10:48 AM EDT Pulse 69 04/12/2022 10:48 AM EDT Temperature 36.9 ??C (98.4 ??F) 04/12/2022 10:48 AM E DT Respiratory Rate 18 04/12/2022 10:48 AM EDT Oxygen Saturation 97% 04/12/2022 10:48 AM EDT Inhaled Oxygen Concentration - - Weight 101 kg (222 lb 3.2 oz) 04/12/2022 10:48 A M EDT Height - - Body Mass Index 38.14 03/30/2022 11:43 AM EDT documented in this encounter Progress Notes * Moraima Kim RN - 04/12/2022 11:00 AM EDT Patient ID: Catie Martinez is a 51 y.o. female. Referring Physician: No referring provider defined for this encounter. Primary Care Provider: Ricardo Contreras MD Subjective HPI 12/28/2015: DIAGNOSIS, Negative for intraepithelial lesion or malignancy. 12/28/2015: DIAGNOSIS; Endometrium, Biopsy: Mid-secretory phase endometrium. [...] dimension 1.0 cm. Negative for lymphovascular invasion. [place] Grade II/III (2 +2+1).Negative for intraductal carcinoma. Negative for necrosis 08/04/20: FROZEN SECTION DIAGNOSIS, 1. [place] Lymph Node #1, Excision (1FS1): -Negative for macrometastasis. 2. [place] Lymph Node #2, Excision (2FS1): - Negative for macrometastasis. DIAGNOSIS, 1. [place] Lymph Node #1, Excision (1FS1): -One lymph node is negative for malignancy. 2. [place] Lymph Node #2, Excision (2FS1): -One lymph node is negative for malignancy. 3. [place] Lymph Node #3, Excision: -One lymph node [...] Benefit - <1%, 10.0 ER Positive, 9.0 FL Positive, 8.9 HER2 Negative 09/16/20: US BREAST [...] CT chest: small 3 mm pulmonary nodule Review of Systems Constitutional: Positive for fatigue. Negative for appetite change, chills and fever. Respiratory: Negative for chest tightness, cough and shortness of breath. Cardiovascular: Negative for chest pain. Gastrointestinal: Negative for abdominal pain, nausea and vomiting. Genitourinary: Negative for difficulty urinating. Musculoskeletal: Negative for back pain. Neurological: Positive for dizziness. Negative for extremity weakness, headaches and light-headedness. Hematological: Does not bruise/bleed easily. Objective BSA: There is no height or weight on file to calculate BSA. There were no vitals taken for this visit. Physical Exam Performance Status: Symptomatic; fully ambulatory Pain Scale: 6 Lab Results Component Value Date WBC 7.7 04/06/2022 HGB 13.5 04/06/2022 HCT 40.0 04/06/2022 PLT 201 04/06/2022 LDH 204 (H) 08/19/2020 CREATININE 1.30 (H) 04/06/2022 AST 17 04/06/2022 Assessment/Plan Perimenopausal white female who was found to have right breast cancer status post right mastectomy by Dr. Duarte on July 08, 2020 with pathology showing 15 mm IDC, negative margins with 0.5 cm the closest margin, grade 2, ER positive at 100%, FL +100%, and HER-2 new negative on i mmunohistochemistry. No DCIS was seen. Lymph nodes were [...] chest: 12/08/2020: small 3 mm pulmonary nodule Prolia for fracture prevention while on AI. Discussed possible side effect of osteonecrosis, she isagreeable to proceed. She has no natural teeth left, so no dental clearance will be required. Here today on follow up for breast cancer. Today she reports fatigue. She has been taking vitamin B12, has not started Prolia yet. No new headache or bone pain. She did return genetic packet today. She also reports enlarging lump under left ear. Reports present for years but now tender and getting bigger. She has just finished antibiotics last week for skin infection. Cancer Staging No matching staging information was found for the patient. [No matching plan found] * Jalil Marie MD - 04/12/2022 11:00 AM EDT Images from the original note were not included. ?Create Note Moraima Kim RNRegistered NurseSigned 04/12/2022 Addend Cosign Attest Expand AllCollapse All Patient ID: Catie Martinez is a 51 y.o. female. Referring Physician: No referring provider defined for this encounter. Primary Care Provider: Ricardo Contreras MD ? Subjective HPI 12/28/2015: DIAGNOSIS, Negative for intraepithelial lesion or malignancy. ?? 12/28/2015: DIAGNOSIS; Endometrium, Biopsy: Mid-secretory phase endometrium. [...] dimension 1.0 cm. Negative for lymphovascular invasion. [place] Grade II/III (2 +2+1).Negative for intraductal carcinoma. Negative for necrosis ?? 08/04/20: FROZEN SECTION DIAGNOSIS, 1. [place] Lymph Node #1, Excision (1FS1): -Negative for macrometastasis. 2. [place] Lymph Node #2, Excision (2FS1): - Negative for macrometastasis. DIAGNOSIS, 1. [place] Lymph Node #1, Excision (1FS1): -One lymph node is negative for malignancy. 2. [place] Lymph Node #2, Excision (2FS1): -One lymph node is negative for malignancy. 3. [place] Lymph Node #3, Excision: -One lymph node [...] Benefit - <1%, 10.0 ER Positive, 9.0 FL Positive, 8.9 HER2 Negative ?? 09/16/20: US [...] CT chest: small 3 mm pulmonary nodule ? Review of Systems Constitutional: Positive for fatigue. Negative for appetite change, chills and fever. Respiratory: Negative for chest tightness, cough and shortness of breath. Cardiovascular: Negative for chest pain. Gastrointestinal: Negative for abdominal pain, nausea and vomiting. Genitourinary: Negative for difficulty urinating. Musculoskeletal: Negative for back pain. Neurological: Positive for dizziness. Negative for extremity weakness, headaches and light-headedness. Hematological: Does not bruise/bleed easily. ? Objective BSA: There is no height or weight on file to calculate BSA. There were no vitals taken for this visit. ?? Physical Exam ?? Performance Status: Symptomatic; fully ambulatory Pain Scale: 6 ?? Lab Results Component Value Date ?? WBC 7.7 04/06/2022 ?? HGB 13.5 04/06/2022 ?? HCT 40.0 04/06/2022 ?? PLT 201 04/06/2022 ?? LDH 204 (H) 08/19/2020 ?? CREATININE 1.30 (H) 04/06/2022 ?? AST 17 04/06/2022 ? Assessment/Plan Perimenopausal white female who was found to have right breast cancer status post right mastectomy by Dr. Duarte on July 08, 2020 with pathology showing 15 mm IDC, negative margins with 0.5 cm the closest margin, grade 2, ER positive at 100%, FL +100%, and HER-2 new negative on immunohistochemistry. [...] chest: 12/08/2020: small 3 mm pulmonary nodule ?? Prolia for fracture prevention while on AI. Discussed possible side effect of osteonecrosis, she isagreeable to proceed. She has no natural teeth left, so no dental clearance will be required. ?? Here today on follow up for breast cancer. Today she reports fatigue. She has been taking vitamin B12, has not started Prolia yet. No new headache or bone pain. She did return genetic packet today. She also reports enlarging lump under left ear. Reports present for years but now tender and getting bigger. She has just finished antibiotics last week for skin infection. ? Cancer Staging No matching staging information was found for the patient. ? [No matching plan found] ? 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, unspecified estrogen receptor status TOTAL IRON BINDING CAPACITY Routine 04/12/2022 11:36 AM EDT 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, unspecified estrogen receptor status CBC WITH AUTO DIFFERENTIAL Routine 04/12/2022 11:36 AM EDT 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, unspecified estrogen receptor status CANCER ANTIGEN 27.29 Routine 04/12/2022 11:36 AM EDT 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, unspecified estrogen receptor status CANCER ANTIGEN 15-3 Routine 04/12/2022 1 1:36 AM EDT 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, unspecified estrogen receptor status RETICULOCYTES Routine 04/12/2022 11:36 AM EDT 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, unspecified estrogen receptor status FOLATE Routine 04/12/2022 11:36 AM EDT 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, unspecified estrogen receptor status FERRITIN Routine 04/12/2022 11:36 AM EDT 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, unspecified estrogen receptor status VITAMIN B12 Routine 04/12/2022 11:36 AM EDT 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 Blood Venous blood specimen / Unknown Venipuncture / Unknown 04/12/2022 11:36 AM EDT 04/12/2022 11:43 AM EDT Jalil Marie MD LAB BLOOD ORDERABLE S [facility] [address] [place] [address], * (ABNORMAL) Comprehensive metabolic panel (04/12/2022 11:36 AM EDT) Sodium 138 133 - 144 mmol/L 04/12/2022 12:42 PM [facility] Potassium 4.2 3.6 - 5.2 mmol/L 04/12/2022 12:42 PM [facility] Chloride 104 98 - 107 mmol/L 04/12/2022 12:42 PM [facility] CO2 29 21 - 32 mmol/L 04/12/2022 12:42 PM [facility] Anion Gap 5 5 - 15 mmol/L 04/12/2022 12:42 PM [facility] BUN 17 7 - 18 mg/dL 04/12/2022 12:42 PM [facility] Creatinine 1.40(H) 0.55 - 1.02 mg/dL 04/12/2022 12:42 PM [facility] BUN/Creatinine Ratio 12.14 10.00 - 20.00 ratio 04/12/2022 12:42 PM [facility] Glucose 83 70 - 110 mg/dL 04/12/2022 12:42 PM [facility] Calcium 9.6 8.5 - 10.1 mg/dL 04/12/2022 12:42 PM [facility] AST 18 15 - 37 U/L 04/12/2022 12:42 PM [facility] ALT (SGPT) 22 13 - 56 U/L 04/12/2022 12:42 PM [facility] Alkaline Phosphatase 65 45 - 117 U/L 04/12/2022 12:42 PM [facility] Total Protein 6.9 6.4 - 8.4 g/dL 04/12/2022 12:42 PM [facility] Albumin 3.6 3.4 - 5.0 g/dL 04/12/2022 12:42 PM EDT [facility] Globulin, Total 3.3 2.4 - 4.8 g/dL 04/12/2022 12:42 PM [facility] A/G Ratio 1.1 0.6 - 1.6 04/12[facility]22 [facility] Total Bilirubin 0.4 0.0 - 1.0 mg/dL 04/12/2022 12:42 PM [facility] eGFR 44.1(L) >60.0 - 200.0 mL/min/1.7 3m*2 04/12/2022 12:42 PM [facility] Blood Venous blood specimen / Unknown Venipuncture / Unknown 04/12/2022 11:36 AM EDT 04/12/2022 11:43 AM EDT Jalil Marie MD LAB BLOOD ORDERABLE S Performing Organization Address City/State/[facility] Co de Phone Number [facility] [address] [place] [address], * CBC auto differential (04/12/2022 11:36 AM EDT) Auto WBC 8.2 3.0 - 11.3 10*3/uL LAB HEMATOLOGY METHOD 04/12/2022 11:54 AM [facility] RBC 4.62 3.45 - 5.40 10*6/uL LAB HEMATOLOGY METHOD 04/12/2022 11:54 AM [facility] Hemoglobin 13.4 10.0 - 16.0 g/dL LAB HEMATOLOGY METHOD 04/12/2022 11:54 AM [facility] Hematocrit 39.1 29.9 - 45.5 % LAB HEMATOLOGY METHOD 04/12/2022 11:54 AM [facility] MCV 84.7 78.2 - 101.8 fL LAB HEMATOLOGY METHOD 04/12/2022 11:54 AM [facility] MCH 29.0 26.4 - 33.3 pg LAB HEMATOLOGY METHOD 04/12/2022 11:54 AM [facility] MCHC 34.2 32.5 - 35.3 g/dL LAB HEMATOLOGY METHOD 04/12/2022 11:54 AM [facility] RDW 13.4 10.1 - 16.2 % LAB HEMATOLOGY METHOD 04/12/2022 11:54 AM [facility] MPV 7.9 6.4 - 10.4 fL LAB HEMATOLOGY METHOD 04/12/2022 11:54 AM [facility] Neutrophils % 55 43 - 83 % LAB HEMATOLOGY METHOD 04/12/2022 11:54 AM [facility] Lymphocytes % 37 10 - 42 % LAB HEMATOLOGY METHOD 04/12/2022 11:54 AM [facility] Monocytes % 5 1 - 14 % LAB HEMATOLOGY METHOD 04/12/2022 11:54 AM [facility] Eosinophils % 2 0 - 11 % LAB HEMATOLOGY METHOD 04/12/2022 11:54 AM [facility] Basophils % 1 0 - 2 % LAB HEMATOLOGY METHOD 04/12/2022 11:54 AM [facility] Neutrophils Absolute 4.50 3.40 - 7.00 10*3/uL LAB HEMATOLOGY METHOD 04/12/2022 11:54 AM [facility] Lymphocytes Absolute 3.00 0.40 - 3.90 10*3/uL LAB HEMATOLOGY METHOD 04/12/2022 11:54 AM [facility] Monocytes Absolute 0.40 0.20 - 0.60 10*3/uL LAB HEMATOLOGY METHOD 04/12/2022 11:54 AM [facility] Eosinophils Absolute 0.20 0.00 - 0.90 10*3/uL LAB HEMATOLOGY METHOD 04/12/2022 11:54 AM [facility] Basophils Absolute 0.10 0.00 - 0.20 10*3/uL LAB HEMATOLOGY METHOD 04/12/2022 11:54 AM [facility] Platelets 172 122 - 454 10*3/uL LAB HEMATOLOGY METHOD 04/12/2022 11:54 AM [facility] Blood Venous blood specimen / Unknown Venipuncture / Unknown 04/12/2022 11:36 AM EDT 04/12/2022 11:43 AM EDT Jalil Marie MD LAB BLOOD ORDERABLE S [facility] [address] [place] [address], [place] [phone] * TRANSFERRIN SATURATION (04/12/2022 11:36 AM EDT) Transferrin Saturation 24 % 04/12/2022 12:13 PM EDT [facility] Blood Venous blood specimen / Unknown Venipuncture / Unknown 04/12/2022 11:36 AM EDT 04/12/2022 11:42 AM EDT Jalil Marie MD LAB BLOOD ORDERABLE S [facility] [address] [place] [address], [place] [phone] * Reticulocytes (04/12/2022 11:36 AM EDT) Retic Ct Pct 1.52 0.33 - 2.37 % LAB HEMATOLOGY METHOD 04/12/2022 11:54 AM EDT [facility] Blood Venous blood specimen / Unknown Venipuncture / Unknown 04/12/2022 11:36 AM EDT 04/12/2022 11:43 AM EDT Jalil Marie MD LAB BLOOD ORDERABLE S [facility] [address] [place] [address], [place] [phone] * Ferritin (04/12/2022 11:36 AM EDT) Ferritin 53 8 - 252 ng/mL 04/12/2022 12:42 PM EDT [facility] Blood Venous blood specimen / Unknown Venipuncture / Unknown 04/12/2022 11:36 AM EDT 04/12/2022 11:43 AM EDT Jalil Marie MD LAB BLOOD ORDERABLE S [facility] [address] [place] [address], * Cancer antigen 15-3 (04/12/2022 11:36 AM EDT) Cancer Ag 15-3 10.3 0.0 - 25.0 U/mL 12/14/2022 9:13 AM EDT [facility] ([facility]) Comment: [facility] Electrochemiluminescence Immunoassay (ECLIA) Values obtained with different assay methods or kits cannot be used interchangeably. ??Results cannot be interpreted as absolute evidence of the presence or absence of malignant disease. Blood Venous blood specimen / Unknown Venipuncture / Unknown 04/12/2022 11:36 AM EDT 04/12/2022 11:42 AM EDT Narrative [facility] ([facility]) - 12/14/2022 9:13 AM EDT Performed at: ??01 - [facility] [address] ??[id number] Dining Room Tables Set Up Attendant: Dago Ochoa PhD, Phone: ??[phone] Jalil Marie MD LAB BLOOD ORDERABLE S [facility] ([facility]) [address] [place], [place] [address] * Cancer antigen 27.29 (04/12/2022 11:36 AM EDT) CA 27.29 21.4 0.0 - 38.6 U/mL 04/12/2022 12:23 PM EDT [facility] Blood Venous blood specimen / Unknown Venipuncture / Unknown 04/12/2022 11:36 AM EDT 04/12/2022 11:42 AM EDT Jalil Marie MD LAB BLOOD ORDERABLE S Performing Organization Address City/[facility]/ZIP Co de Phone Number [facility] [address] [place] [address], * Folate (04/12/2022 11:36 AM EDT) Folate 7.0 3.1 - 17.5 ng/mL 04/12/2022 12:42 PM EDT [facility] Blood Venous blood specimen / Unknown Venipuncture / Unknown 04/12/2022 11:36 AM EDT 04/12/2022 11:43 AM EDT Jalil Marie MD LAB BLOOD ORDERABLE S Performing Organization Address City/[facility]/ZIP Co de Phone Number [facility] [address] [place] [address], [place] [phone] * Vitamin B12 (04/12/2022 11:36 AM EDT) Vitamin B-12 293 254 - 1,320 pg/mL 04/12/2022 12:42 PM EDT [facility] Blood Venous blood specimen / Unknown Venipuncture / Unknown 04/12/2022 11:36 AM EDT 04/12/2022 11:43 AM EDT Jalil Marie MD LAB BLOOD ORDERABLE S Performing Organization Address City/[facility]/ZIP Co de Phone Number [facility] [address] [place] [address], * (ABNORMAL) CEA (04/12/2022 11:36 AM EDT) CEA 4.0(H) 0.0 - 3.0 ng/mL 04/12/2022 12:42 PM EDT [facility] Blood Venous blood specimen / Unknown Venipuncture / Unknown 04/12/2022 11:36 AM EDT 04/12/2022 11:43 AM EDT Jalil Marie MD LAB BLOOD ORDERABLE S 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
--- OUTSIDE RECORDS SUMMARY | 2024-08-18 13:11 | XMS_ITS | Encounter Summary ---
Author Organization [facility] Address [address] [place] [address] Care Team Providers Care Guide Plant Name Role Phone Ricardo Contreras MD Primary Care Provider + Jalil Marie MD Unavailable [phone] Reason for Visit * Reason Comments Follow-up Encounter Details Date Type Department Care Team (Late st Contact Info) Description 04/14/2022 8:30 AM EDT Office Visit [facility] [address] [place] [phone] Gregory Forrest MD [address] [place] [phone] Acquired absence of breast and absent [...] suspected to have Coronavirus/COVID-19? No / Unsure 04/14/2022 8:11 AM EDT documented as of this encounter Progress Notes * Gregory Forrest MD - 04/14/2022 8:30 AM EDT Subjective : Patient ID: Catie Martinez is a 51 y.o. female. History of Present Illness: S/P rt delayed breast recon, left mastopexy 04/13/2022. Objective : Physical Exam Constitutional She appears well-developed and well-nourished. Eyes System normal. Pulmonary/Chest Effort normal. Skin Skin is warm. Psychiatric She has a normal mood and affect. Her behavior is normal. Jhon Prevena in place. Jhon mild edema. Assessment/Plan : 1. Acquired absence of breast and absent nipple, right Procedure performed discussed. Bactroban Oint around drains BID. F/up 1 w. On bactrim DS. documented in this encounter Plan of Treatment Not on file documented as of this encounter Visit Diagnoses Diagnosis Acquired absence of breast and absent nipple, right- Primary documented in this encounter Care Teams Guide Plant Relationship Specialty Start Date End Date Ricardo Contreras MD [address] [place] [address] PCP - General Jalil Marie MD [address] [place] [phone] Consulting Physician Hematology 04/12/22 documented as of this encounter
--- OUTSIDE RECORDS SUMMARY | 2024-08-18 13:11 | XMS_ITS | Encounter Summary ---
Author Organization [facility] Ce nter Address [address] [place] [address] [place] [address] Care Team Providers Care Decorator Mannequin Name Role Phone Ricardo Contreras MD Primary Care Provider + Encounter Details Date Type Department Care Team (Latest Contact Info) Description 04/06/2022 12:30 PM EDT - 04/06/2022 11:59 PM EDT Hospital Encounter [facility] [address] [place] [phone] Discharge Disposition: Home or Self Care Social History Tobacco Use Types Packs/Day Years Used Date Smoking Tobacco: Never Assessed Sex and Gender Information Value Date Recorded Sex Assigned at Female 2021 11:11 AM EST Gender Identity Female 2021 11:11 AM EST Sexual Orientation Straight 2021 11 :11 AM EST COVID-19 Exposure Response Date Recorded In the last 10 days, have yo u been in contact with someone who was confirmed or suspected to have Coronavirus/COVID-19? No / Unsure 04/06/2022 12:30 PM EDT documented as of this encounter Medications at Time of Discharge Medication Sig Dispensed Refills Start Date End Date citalopram (CeleXA) 40 MG tablet Take 1 tablet (40 mg) by mouth in the morning. Take morning of surgery 03/16/2022 ergocalciferol (Vitamin D2) 1.25 MG (79706 UT) capsule 1 capsule (50,000 Units) 1 (one) time per week. 01/18/2022 hydrOXYzine HCl (Atarax) 25 MG tablet Take [...] evening meal. Take night before procedure 12/21/2021 meloxicam (Mobic) 7.5 MG tablet Take 1 tablet (7.5 mg) by mouth in the morning and at bedtime. Hold morning of procedure 02/07/2022 omeprazole (PriLOSEC) [address] capsule Take 1 capsule (40 mg) by mouth in the morning. Take morning of procedure 01/27/2022 ondansetron (Zofran) 4 MG tablet Take 1 tablet (4 mg) by mouth every 6 (six) hours if needed. 03/16/2022 oxybutynin XL (Ditropan-XL) 5 MG 24 hr tablet Take 1 tablet (5 mg) by mouth in the morning. Take morning of surgery 03/08/2022 potassium chloride CR (Klor-Con) 10 MEQ ER tablet Take 1 tablet (10 mEq) by mouth in the morning. with food- hold morning of procedure 03/16/2022 oxyCODONE-acetaminophe n (Percocet) 5-325 MG tablet Take 1 tablet by mouth every 6 (six) hours if needed for severe pain for up to 5 days. 12 tablet 04/12/2022 04/17/2022 sulfamethoxazole-trime thoprim (Bactrim DS) 800-160 MG tablet Take 1 tablet by mouth in the morning and at bedtime for 7 days. 14 tablet 04/12/2022 04/19/2022 amitriptyline (Elavil) 100 MG tablet Take 1 tablet (100 mg) by mouth at bedtime. Take night before surgery 03/16/2022 04/10/2023 amoxicillin (Amoxil) 875 MG tablet Take 875 mg by mouth every 12 (twelve) hours. 05/06/2021 06/21/2022 anastrozole (Arimidex) 1 MG chemo tablet Take 1 mg by mouth in the morning. 02/24/2022 06/21/2022 benzonatate (Tessalon) 100 MG capsule TAKE 1 CAPSULE BY MOUTH EVERY 4 HOURS NEEDED 12/07/2021 06/21/2022 Calcium 600+D 600-200 MG-UNIT tablet Take 1 tablet by mouth in the morning and at bedtime. 09/05/2021 04/10/2023 fluconazole (Diflucan) 150 MG tablet Take 150 mg by mouth in the morning. 07/17/2021 06/21/2022 furosemide (Lasix) 20 MG tablet Take 1 tablet (20 mg) by mouth in the morning. Hold morning of procedure 02/07/2022 10/18/2022 rOPINIRole (Requip) 1 MG tablet Take 1 tablet (1 mg) by mouth at bedtime. Take night before surgery 04/03/2022 10/18/2022 documented as of this encounter Plan of Treatment Not on file documented as of this encounter Procedures Procedure Name Priority Date/Time Associated Diagnosis Comments HEMOGLOBIN A1C Routine 04/06/2022 1:19 PM EDT Acquired absence of breast and absent nipple, right Ptosis of left breast documented in this encounter Results * (ABNORMAL) Hemoglobin A1c (04/06/2022 1:19 PM EDT) Hemoglobin A1C 8.2(H) 3.0 - 6.0 % 04/07/2022 1:58 AM EDT [facility] Comment: Additional Reference Ranges: 6.0 - 9.0% Controlled Diabetic >9.0 ?Poorly Controlled Diabetic *Hemoglobin A1c is an FDA approved test for monitoring intermediate glucose control in individuals with diabetes. It is not an approved screening test for diagnosing type 1 and type 2 diabetes. Results of Hemoglobin A1c are not reliable in patients with chronic blood loss, consequent variable erythrocyte lifespan, hemolytic diseases, , and significant blood loss. Blood Venous blood specimen / Unknown Venipuncture / Unknown 04/06/2022 1:19 PM EDT 04/06/2022 1:19 PM EDT Gregory Forrest MD LAB BLOOD ORDERABLE S [facility] [address] [place] [address], documented in this encounter Visit Diagnoses Not on filedocumented in this encounter Care Teams Decorator Mannequin Relationship Specialty Start Date End Date Ricardo Contreras MD [address] [place] [address] PCP - General documented as of this encounter
--- OUTSIDE RECORDS SUMMARY | 2024-08-18 13:11 | XMS_ITS | Encounter Summary ---
Author Organization [facility] nter Address [address] [place], [place] [id number] [place] [address] Care Team Providers Care Quiller Hand Name Role Phone Ricardo Contreras MD Primary Care Provider + Jalil Marie MD Unavailable [phone] Encounter Details Date Type Department Care Team (Latest Contact Info) Description 05/31/2022 Travel Social History Tobacco Use Types Packs/Day [...] on filedocumented in this encounter Care Teams Quiller Hand Relationship Specialty Start Date End Date Ricardo Contreras MD [address] [place] [address] PCP - General Jalil Marie MD [address] [facility] [place] [phone] Consulting Physician Hematology 04/12/22 documented as of this encounter
--- OUTSIDE RECORDS SUMMARY | 2024-08-18 13:11 | XMS_ITS | Encounter Summary ---
Author Organization [facility] nter Address [address] [place], [place] [id number] [place] [address] Care Team Providers Care Ancient Art Curator Name Role Phone Ricardo Contreras MD Primary Care Provider + Jalil Marie MD Unavailable [phone] Encounter Details Date Type Department Care Team (Latest Contact Info) Description 04/26/2022 Travel Social History Tobacco Use Types Packs/Day [...] on filedocumented in this encounter Care Teams Ancient Art Curator Relationship Specialty Start Date End Date Ricardo Contreras MD [address] [place] [address] PCP - General Jalil Marie MD [address] [place] [phone] Consulting Physician Hematology 04/12/22 documented as of this encounter
--- OUTSIDE RECORDS SUMMARY | 2024-08-18 13:11 | XMS_ITS | Encounter Summary ---
Author Organization [facility] nter Address [address] [place], [place] [address] [place] [address] Care Team Providers Care Dental Technology Advisor Name Role Phone Ricardo Contreras MD Primary Care Provider + Jalil Marie MD Unavailable [phone] Encounter Details Date Type Department Care Team (Latest Contact Info) Description 05/10/2022 Travel Social History Tobacco Use Types Packs/Day [...] on filedocumented in this encounter Care Teams Dental Technology Advisor Relationship Specialty Start Date End Date Ricardo Contreras MD [address] [place] [address] PCP - General Jalil Marie MD [address] [place] [phone] Consulting Physician Hematology 04/12/22 documented as of this encounter
--- OUTSIDE RECORDS SUMMARY | 2024-08-18 13:11 | XMS_ITS | Encounter Summary ---
Author Organization [facility] nter Address [address] [place], [place] [address] [place] [address] Care Team Providers Care Metal Hanger Name Role Phone Ricardo Contreras MD Primary Care Provider + Jalil Marie MD Unavailable [phone] Reason for Referral * Imaging (Routine) - Closed Specialty Diagnoses / Procedures Referred By Frantz moreno Referred To Contact Radiology Diagnoses Pulmonary nodule Procedures CT chest w IV contrast Ricardo Contreras MD [address] [place] [address] Referral ID Status Reason Start Date Expiration Date Visits Re quested Visits Authorized [id number] Closed 04/27/2022 06/26/2022 1 1 Reason for Visit * Imaging (Routine) - Closed Specialty Diagnoses / Procedures Referred By Frantz moreno Referred To Contact Radiology Diagnoses Pulmonary nodule Procedures CT chest w IV contrast Ricardo Contreras MD [address] [place] [address] Referral ID Status Reason Start Date Expiration Date Visits Re quested Visits Authorized [id number] Closed 04/27/2022 06/26/2022 1 1 Encounter Details Date Type Department Care Team (Latest Contact Info) Description 06/14/2022 8:20 AM EDT - 06/14/2022 11:59 PM EDT Hospital Encounter [facility] [address], [address] [place] [phone] Pulmonary nodule Discharge Disposition: Home or Self Care Social [...] surgery 03/16/2022 ergocalciferol (Vitamin D2) 1.25 MG (22045 UT) capsule 1 capsule (50,000 Units) 1 [...] 0.25 mg 1 (one) time per week. topiramate 50 [...] morning. Hold morning of procedure 02/07/2022 10/18/2022 magnesium oxide (Mag-Ox) 400 MG tablet magnesium oxide 400 mg (241.3 mg magnesium) tablet TAKE 1 TABLET BY MOUTH TWICE DAILY 06/21/2022 potassium chloride 40 MEQ/15ML (20%) solution Take by mouth. 06/21/2022 rOPINIRole (Requip) 1 MG tablet Take 1 tablet (1 mg) by mouth at bedtime. Take night before surgery 04/03/2022 10/18/2022 rOPINIRole (Requip) 2 MG tablet ropinirole 2 mg tablet TAKE 1 TABLET BY MOUTH EVERY NIGHT AT BEDTIME 2 SSD 1 % cream 1 application in the morning and at bedtime. Do apply morning of surgery 04/19/2022 10/25/2022 documented as of this encounter Plan of Treatment Pending Results Name Type Priority Associated Diagnoses Date /Time POCT Creatinine Point of Care Testing Routine 06/14/2022 9:17 AM EDT documented as of this encounter Procedures Procedure Name Priority Date/Time Associated Diagnosis Comments CT CHEST W IV CONTRAST Routine 06/14/2022 10:35 AM EDT Pulmonary nodule documented in this encounter Results * CT chest w IV contrast (06/14/2022 10:35 AM EDT) Anatomical Region Laterality Modality Body, Chest Computed Tomogra phy 06/14/2022 10:3 8 AM EDT Impressions 06/14/2022 10:48 AM EDT 1. Minimal scattered areas of scarring/atelectasis. No suspicious mass. Scattered small nodules measuring up to 2 to 3 mm, unchanged. 2. Status post right mastectomy with reconstruction and tissue photoflash powder mixer in place. 3. Other chronic findings as noted. Report Sign Date: 06/14/2022 10:48 AM, Electronically Signed By: Roverto Anderson 06/14/2022 10:[address] CHEST W IV CONTRAST: 06/14/2022 10:38 AM Radiation Optimization: All CT scans at this facility use at least one of these dose optimization techniques: automated exposure control; mA and/or kV adjustment per patient size (includes targeted exams where dose is matched to clinical indication); or iterative reconstruction. CLINICAL INDICATION: pulmonary nodule pulmonary nodule. COMPARISON: 02/11/2021. HEART: No cardiomegaly. No pericardial effusion. VESSELS: Normal caliber. No dissection or appreciable aneurysmal dilatation. Mild atherosclerotic disease. MEDIASTINUM AND ANNAMARIE: No adenopathy or mass lesion by size criteria. CHEST WALL AND LOWER NECK: Status post right mastectomy with reconstruction and tissue photoflash powder mixer in place. LUNG, PLEURA AND LARGE AIRWAYS: No consolidation. Scattered areas of scarring and atelectasis. No suspicious mass or nodule. No pneumothorax or significant effusion. Airways unremarkable. UPPER ABDOMEN: Limited view of the upper abdomen is without acute finding. Hepatic steatosis. Atherosclerotic disease. BONES: No acute bone abnormality. Bone demineralization and degenerative change. Procedure Note Roverto Rucker MD - 06/14/2022 CT CHEST W IV CONTRAST: 06/14/2022 10:38 AM Radiation Optimization: All CT scans at this facility use at least one ofthese dose optimization techniques: automated exposure control; mA and/orkV adjustment per patient size (includes targeted exams where dose ismatched to clinical indication); or iterative reconstruction. CLINICAL INDICATION: pulmonary nodule pulmonary nodule. COMPARISON: 02/11/2021. HEART: No cardiomegaly. No pericardial effusion. VESSELS: Normal caliber. No dissection or appreciable aneurysmaldilatation. Mild atherosclerotic disease. MEDIASTINUM AND ANNAMARIE: No adenopathy or mass lesion by size criteria. CHEST WALL AND LOWER NECK: Status post right mastectomy withreconstruction and tissue photoflash powder mixer in place. LUNG, PLEURA AND LARGE AIRWAYS: No consolidation. Scattered areas ofscarring and atelectasis. No suspicious mass or nodule. No pneumothorax orsignificant effusion. Airways unremarkable. UPPER ABDOMEN: Limited view of the upper abdomen is without acute finding.Hepatic steatosis. Atherosclerotic disease. BONES: No acute bone abnormality. Bone demineralization and degenerativechange. IMPRESSION: 1. Minimal scattered areas of scarring/atelectasis. No suspicious mass.Scattered small nodules measuring up to 2 to 3 mm, unchanged. 2. Status post right mastectomy with reconstruction and tissue photoflash powder mixer inplace. 3. Other chronic findings as noted. Report Sign Date: 06/14/2022 10:48 AM, Electronically Signed By: Roverto Oconnor MD Ricardo Contreras MD IMG CT PROCEDURE S documented in this encounter Visit Diagnoses Diagnosis Pulmonary nodule Other diseases of lung, not elsewhere classified documented in this encounter Administered Medications Inactive Administered Medications - up to 3 most recent administrations Medication Order MAR Action Action Date Dose Rate Site iopamidol (Isovue-300) 61 % injection 75 mL 75 mL, Intravenous, Once in imaging, Starting on Sun06/14/22 at 1035, For 1 dose Given 06/14/2022 10:35 AM EDT 75 mL documented in this encounter Care Teams Metal Hanger Relationship Specialty Start Date End Date Ricardo Contreras MD [address] [place] [address] PCP - General Jalil Marie MD [address] [place] [phone] Consulting Physician Hematology 04/12/22 documented as of this encounter
--- OUTSIDE RECORDS SUMMARY | 2024-08-18 13:11 | XMS_ITS | Encounter Summary ---
Author Organization [facility] Address [address] [place] [id number] Care Team Providers Care Trigonometry Teacher Name Role Phone Ricardo Contreras MD Primary Care Provider + Jalil Marie MD Unavailable [phone] Encounter Details Date Type Department Care Team (Late st Contact Info) Description 05/24/2022 8:30 AM EDT Office Visit [facility] [address] [place] [phone] Gregory Forrest MD [address] [place] [phone] Acquired absence of breast and absent [...] Progress Notes * Gregory Forrest MD - 05/24/2022 8:30 AM EDT Subjective : Patient ID: Catie Martinez is a 51 y.o. female. History of Present Illness: S/P rt chest TE, left mastopexy. Objective : Physical Exam Constitutional She appears well-developed and well-nourished. Eyes System normal. Pulmonary/Chest Effort normal. Skin Skin is warm. Psychiatric She has a normal mood and affect. Her behavior is normal. Rt TE in place. Left mastopexy incisions healed well. Assessment/Plan : 1. Acquired absence of breast and absent nipple, right 2. Ptosis of left breast Pt happy with rt breast mount size. Does not want more expansion. Wants to keep left breast as it is for now. Scheduled for rt TE exchange for silicone gel implant, possible pocket modification. documented in this encounter Plan of Treatment Not on file documented as of this encounter Visit Diagnoses Diagnosis Acquired absence of breast and absent nipple, right- Primary Ptosis of left breast documented in this encounter Care Teams Trigonometry Teacher Relationship Specialty Start Date End Date Ricadro Contreras MD [address] [place] [address] PCP - General Jalil Marie MD [address] [place] [address] Consulting Physician Hematology 04/12/22 documented as of this encounter
--- OUTSIDE RECORDS SUMMARY | 2024-08-18 13:11 | XMS_ITS | Encounter Summary ---
Author Organization [facility] nter Address [address] [place], [place] [address] [place] [address] Care Team Providers Care Distresser Name Role Phone Ricardo Contreras MD Primary Care Provider + Jalil aMrie MD Unavailable [phone] Encounter Details Date Type Department Care Team (Latest Contact Info) Description 04/12/2022 Travel Social History Tobacco Use Types Packs/Day [...] suspected to have Coronavirus/COVID-19? No / Unsure 04/12/2022 10:18 AM EDT documented as of this encounter Plan of Treatment Not on file documented as of this encounter Visit Diagnoses Not on filedocumented in this encounter Care Teams Distresser Relationship Specialty Start Date End Date Ricardo Contreras MD [address] [place] [address] PCP - General Jalil Marie MD [address] [place] [phone] Consulting Physician Hematology 04/12/22 documented as of this encounter
--- OUTSIDE RECORDS SUMMARY | 2024-08-18 13:11 | XMS_ITS | Encounter Summary ---
Author Organization [facility] Address [address] [place] [phone] Care Team Providers Care Software Developer Mid Level Name Role Phone Ricardo Contreras MD Primary Care Provider + Jalil Marie MD Unavailable Reason for Visit * Reason Comments Tissue Expansion Encounter Details Date Type Department Care Team (Late st Contact Info) Description 05/01/2022 9:30 AM EDT Office Visit [facility] [address] [place] [phone] Gregory Forrest MD [address] [place] [phone] Acquired absence of breast and absent [...] Progress Notes * Gregory Forrest MD - 05/01/2022 9:30 AM EDT Subjective : Patient ID: Catie Martinez is a 51 y.o. female. History of Present Illness: S/p rt T/alloderm, Left mastopexy. Objective : Physical Exam Constitutional She appears well-developed and well-nourished. Eyes System normal. Pulmonary/Chest Effort normal. Skin Skin is warm. Psychiatric She has a normal mood and affect. Her behavior is normal. Rt TE in place. Jhon incisions healing well. Assessment/Plan : 1. Acquired absence of breast and absent nipple, right 2. Ptosis of left breast Sterile technique. All air removed from Rt TE. 240 ml NS placed in Rt TE with sterile transfe. Pt tolerated procedure well. F/up 1 w. documented in this encounter Plan of Treatment Not on file documented as of this encounter Visit Diagnoses Diagnosis Acquired absence of breast and absent nipple, right- Primary Ptosis of left breast documented in this encounter Care Teams Software Developer Mid Level Relationship Specialty Start Date End Date Ricardo Contreras MD [address] [place] [address] PCP - General Jalil Marie MD [address] [place] [phone] Consulting Physician Hematology 04/12/22 documented as of this encounter
--- OUTSIDE RECORDS SUMMARY | 2024-08-18 13:11 | XMS_ITS | Encounter Summary ---
Author Organization [facility] nter Address [address] [place] [address] Care Team Providers Care Bias Machine Operator Helper Name Role Phone Ricardo Contreras MD Primary Care Provider + Jalil Marie MD Unavailable [phone] Encounter Details Date Type Department Care Team (Late st Contact Info) Description 04/19/2022 Telephone [facility]ACT[facility] [address], [facility] [address] [place] [phone] Reyna Dahl, LAUREN [address] [place] [address] Social History Tobacco Use Types Packs/Day Years [...] on filedocumented in this encounter Care Teams Bias Machine Operator Helper Relationship Specialty Start Date End Date Ricardo Contreras MD [address] [place] [address] PCP - General Jalil Marie MD [address] [place] [phone] Consulting Physician Hematology 04/12/22 documented as of this encounter
--- OUTSIDE RECORDS SUMMARY | 2024-08-18 13:11 | XMS_ITS | Encounter Summary ---
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, right required absence of breast and nipple c50.911 (R breast cancer) Procedures PA GRAFT [id number] PA MASTOPEXY PA TISSUE ORTHOPHOTOGRAPHY TECHNICIAN PLACEMENT BREAST RECONSTRUCTION PA IMPLNT BIO IMPLNT FOR SOFT TISSUE REINFORCEMENT BREAST RECONSTRUCTION, TOTAL MASTOPEXY Gregory Forrest MD [address] [facility] [place] [address] [facility] [address] [place] [address] Referral ID Status Reason Start Date Expiration Date Visits Re quested Visits Authorized [id number] 1 1 Encounter Details Date Type Department Care Team (Late st Contact Info) Description 04/13/2022 8:17 AM EDT Anesthesia Event [facility] [address] [place] [address] Иван Gaitan DO [address] [facility] [place] [address] Anesthesia Record Procedure Summary Procedure Name Responsible Anesthesiologist Anesthesia Start Time Anesthesia Stop Time BREAST RECONSTRUCTION, RIGHT WITH TISSUE EXPANDERS AND ALLODERM (Right: Breast) Иван Gaitan, 04/13/22 0817 04/13/22 1133 Events Date Time Event Comment 04/13/2022 0712 0816 In Room 0817 An Start 0817 An Start Data 0823 An Induction The patient was reevaluated immediately before moderate or deep sedation use and before anesthesia induction. 0823 An Intubation 0847 Anesthesia Ready 0906 Proc Start 1101 Proc Fin 1124 An Extubation 1124 an stop data 1129 Out of Room 1132 Handoff to Receiving I compl eted my handoff to the receiving clinician during which we: 1. Identified the patient 2. Identified the responsible provider 3. Reviewed the pertinent medical history 4. Discussed the surgical course 5. Reviewed intra-op anesthesia management and issues during anesthesia 6. Set expectations for post-procedure period 7. Allowed opportunity for questions and acknowledgement of understanding. 1133 An Stop Meds Name Total midazolam 1 mg/mL 2 mg fentaNYL (SUBLIMAZE) injection 200 mcg propofol 10 mg/mL 200 mg rocuronium 50 mg ondansetron 2 mg/mL 4 mg ePHEDrine injection 30 mg phenylephrine (Vazculep) 25, 000 mcg in dextrose 5 % 250 mL (100 mcg/mL) infusion 1,475 mcg phenylephrine 100 mcg/mL syringe 400 mcg dexAMETHasone 4 mg/mL 8 mg DAPTOmycin (Cubicin) 514.2 mg Syringe 51 4 mg ropivacaine (Naropin) 0.5 % Perineural 4 0 mL acetaminophen (Ofirmev) injection 1,000 mg tranexamic acid (Cyklokapron) injection 1,000 mg hydrALAZINE 20 mg/mL 10 mg sugammadex 200 mg/2mL 200 mg LR 1,450 mL * Agents Name Sevoflurane Inspired Sevoflurane N2O Inspired N2O * Blood No blood administrations on file. Lines, Drains, and Airways Type Details Placement Removal Urethral Catheter Placement Date: 04/13/22; Placement Time: 0850; Inserted by: Edvin COOL RN; Type: Non-latex; Size: 16 Fr.; Balloon Size: 10 mL; Urine Returned: Yes; Removal Date: 04/13/22; Removal Time: 1130 (removed in surgery) 04/13/22 0850 by Joan Cool RN 04/13/22 1130 by Twan Morejon RN Closed/Suction Drain 04/13/22; 1050; 1; Inferior, Lateral, Right; Breast; Bulb; 19 Fr.; 09/14/22 04/13/22 1050 by Joan Cool RN Closed/Suction Drain 04/13/22; 1050; 2; Lateral, Right; Breast; Bulb; 19 Fr.; 09/14/22 04/13/22 1050 by Joan Cool RN Wound 04/13/22; 1101; Incision; Breast; Bilateral; right breast- prevena, tegaderm, bactroban, clau drainx2, left breast- prevena tegaderm, surgical breast and abd pads used.; 09/14/22; 1456 04/13/22 1101 by Joan Cool RN 09/14/22 1456 by Dinorah Gtz RN documented in this [...] AM EDT documented as of this encounter OR Notes * Anesthesia Postprocedure Evaluation - Иван Gaitan DO - 04/13/2022 1:57 PM EDT Patient: Catie Martinez Procedure Summary Date: 04/13/22 Room / Location: [facility] Operating Room Anesthesia Start: 816 Anesthesia Stop: 1132 Procedures: BREAST RECONSTRUCTION, RIGHT WITH TISSUE EXPANDERS AND ALLODERM (Right Breast) MASTOPEXY (Left Breast) Diagnosis: Acquired absence of breast and absent nipple, right Acquired absence of breast and nipple, right (required absence of breast and nipple) (c50.911 (R breast cancer)) Surgeons: Gregory Forrest MD Responsible Provider: Иван Gaitan DO Anesthesia Type: general, regional ASA Status: 3 Anesthesia Type: general, regional Vitals Value Taken Time BP 160/88 04/13/22 1210 Temp 98 ??F (36.7 ??C) 04/13/22 1130 Pulse 76 04/13/22 1210 Resp 19 04/13/22 1210 SpO2 98 % 04/13/22 1210 Anesthesia Post Evaluation Patient location during evaluation: PACU Patient participation: complete - patient participated Level of consciousness: awake and alert Pain management: satisfactory to patient Airway patency: patent Cardiovascular status: acceptable and blood pressure returned to baseline Respiratory status: acceptable Hydration status: acceptable There were no known complications for this encounter. * Anesthesia Procedure Notes - Иван Gaitan DO - 04/13/2022 8:41 AM EDT Associated Order(s): Peripheral Block Peripheral Block Patient location during procedure: OR Start time: 04/13/2022 8:33 AM End time: 04/13/2022 8:35 AM Reason for block: at surgeon's request and post-op pain management Staffing Performed: anesthesiologist Anesthesiologist: Иван Gaitan DO Preanesthetic Checklist Completed: patient identified, IV checked, site marked, risks and benefits discussed, surgical consent, monitors and equipment checked, pre-op evaluation and timeout performed Peripheral Block Patient position: supine Prep: ChloraPrep Patient monitoring: continuous pulse ox, heart rate and engine monitor Block type: PECS Laterality: bilateral Injection technique: single-shot Guidance: ultrasound guided Needle Needle type: short-bevel Needle gauge: 21 G Needle length: 10 cm Needle localization: ultrasound guidance Medications Administered ropivacaine (Naropin) 0.5 % Perineural - Injection 40 mL - 04/13/2022 8:33:00 AM Assessment Injection assessment: negative aspiration for heme and incremental injection Heart rate change: no Slow fractionated injection: yes Additional Notes Ropi 0.25% 20 ml each side (total 40 mL) * Anesthesia Procedure Notes - Luda Browne CRNA - 04/13/2022 8:23 AM EDT Associated Order(s): Airway Airway Date/Time: 04/13/2022 8:23 AM Urgency: elective General Information and Staff Patient location during procedure: OR Anesthesiologist: Иван Gaitan DO Resident/METAL PLATER: Luda Browne CRNA Performed: resident/METAL PLATER and anesthesiologist Indications and Patient Condition Indications for airway management: anesthesia Spontaneous Ventilation: absent Preoxygenated: yes Patient position: sniffing MILS maintained throughout Final Airway Details Final airway type: endotracheal airway Successful airway: ETT Cuffed: yes Successful intubation technique: direct laryngoscopy Facilitating devices/methods: intubating stylet Endotracheal tube insertion site: oral Blade: Brayan Blade size: #3 ETT size (mm): 7.5 Placement verified by: chest auscultation and capnometry Measured from: teeth Number of attempts at approach: 1 * Anesthesia Preprocedure Evaluation - Иван Gaitan DO - 04/12/2022 10:45 PM EDT Patient: Catie Martinez Procedure Information Date/Time: 04/13/22 0800 Procedures: BREAST RECONSTRUCTION, TOTAL (Right Breast) MASTOPEXY (Left Breast) Location: [facility] OR Operating Room Surgeons: Gregory Forrest MD Anesthesia Evaluation Patient summary reviewed and Nursing notes reviewed No history of anesthetic complications: Airway Dental Pulmonary - negative ROS and normal exam Cardiovascular (+) hypertension, Hyperlipidemia, Rhythm: regular Rate: normal Neuro/Psych (+) psychiatric history - depression, GI/Hepatic/Renal (-) GERD Endo/Other (+) diabetes mellitus, Cancer (h/o Breast s/p mastectomy - has right breast numbness since sx), Vitals: BP (!) 175/92 Pulse 72 Temp 98.2 ??F (36.8 ??C) (Temporal) Resp 17 Ht 5' 3 (1.6 m) Wt 218 lb 0.6 oz (98.9 kg) SpO2 96% BMI 38.62 kg/m?? ALL: LATEX, hospital tape Meds: amitriptyline amoxicillin anastrozole atorvastatin benzonatate Calcium 600+D tablet citalopram ferrous sulfate fluconazole furosemide glipiZIDE hydrOXYzine HCl lisinopril loratadine magnesium oxide meloxicam metFORMIN omeprazole oxyCODONE-acetaminophen Ozempic (0.25 or 0.5 MG/DOSE) solution pen-injector potassium chloride solution pregabalin rOPINIRole sulfamethoxazole-trimethoprim topiramate tablet Past Surgical History: Procedure Laterality Date ??? BI US GUIDED BREAST LOCALIZATION AND BIOPSY RIGHT Right 07/08/2020 BI US GUIDED BREAST LOCALIZATION AND BIOPSY RIGHT PMC D DIAG IMG ??? BREAST SURGERY ??? CT CHEST ANGIOGRAM W AND/OR WO IV CONTRAST 08/06/2019 CT CHEST ANGIOGRAM W AND/OR WO IV CONTRAST PMC D DIAG IMG ??? CT CHEST ANGIOGRAM W AND/OR WO IV CONTRAST 02/11/2021 CT CHEST ANGIOGRAM W AND/OR WO IV CONTRAST PMC D DIAG IMG ??? FOOT SURGERY ??? NOSE SURGERY ??? SHOULDER SURGERY TESTS: ECHO 11/02/21: EF 65-70%, mild reduced RV func, GR1 DD, No valve dz Physical Exam Airway Mallampati: II TM distance: >3 FB Neck ROM: full Cardiovascular Rhythm: regular Rate: normal Dental (+) Edentulous Pulmonary - normal exam Anesthesia Plan ASA 3 general and regional intravenous induction (B/L PECS blocks; scop patch placed ) Postoperative administration of opioids is intended. Anesthetic plan and risks discussed with patient. Use of blood products discussed with patient who. Plan discussed with METAL PLATER. Lab Results Component Value Date NA 138 04/12/2022 K 4.2 04/12/2022 CALCIUM 9.6 04/12/2022 CL 104 04/12/2022 CO2 29 04/12/2022 BUN 17 04/12/2022 MG 2.0 02/11/2021 PHOS 4.9 02/20/2020 CREATININE 1.40 (H) 04/12/2022 GLUCOSE 83 04/12/2022 INR 0.99 08/23/2020 Lab Results Component Value Date WBC 8.2 04/12/2022 RBC 4.62 04/12/2022 HCT 39.1 04/12/2022 HGB 13.4 04/12/2022 PLT 172 04/12/2022 MCV 84.7 04/12/2022 documented in this encounter Plan of Treatment Not on file documented as of this encounter Procedures Procedure Name Priority Date/Time Associated Diagnosis Comments ANESTHESIA PERIPHERAL BLOCK Routine 04/13/2022 8:33 AM EDT ANESTHESIA INTUBATION Routine 04/13/2022 8:23 AM EDT documented in this encounter Results * Peripheral Block (04/13/2022 8:33 AM EDT) Narrative Иван Gaitan DO - 04/13/2022 8:33 AM EDT Иван Gaitan DO ? 04/13/2022 ??9:17 AM Peripheral Block Patient location during procedure: OR Start time: 04/13/2022 8:33 AM End time: 04/13/2022 8:35 AM Reason for block: at surgeon's request and post-op pain management Staffing Performed: anesthesiologist Anesthesiologist: Иван Gaitan DO Preanesthetic Checklist Completed: patient identified, IV checked, site marked, risks and benefits discussed, surgical consent, monitors and equipment checked, pre-op evaluation and timeout performed Peripheral Block Patient position: supine Prep: ChloraPrep Patient monitoring: continuous pulse ox, heart rate and engine monitor Block type: PECS Laterality: bilateral Injection technique: single-shot Guidance: ultrasound guided Needle Needle type: short-bevel Needle gauge: 21 G Needle length: 10 cm Needle localization: ultrasound guidance Medications Administered ropivacaine (Naropin) 0.5 % Perineural - Injection 40 mL - 04/13/2022 8:33:00 AM Assessment Injection assessment: negative aspiration for heme and incremental injection Heart rate change: no Slow fractionated injection: yes Additional Notes Ropi 0.25% 20 ml each side (total 40 mL) Gregory Forrest MD ANESTHESIA ORDERABL ES * Airway (04/13/2022 8:23 AM EDT) Narrative Luda Browne CRNA - 04/13/2022 8:23 AM EDT Luda Browne CRNA ? 04/13/2022 ??8:28 AM Airway Date/Time: 04/13/2022 8:23 AM Urgency: elective General Information and Staff Patient location during procedure: OR Anesthesiologist: Иван Gaitan DO Resident/METAL PLATER: Luda Browen CRNA Performed: resident/METAL PLATER and anesthesiologist Indications and Patient Condition Indications for airway management: anesthesia Spontaneous Ventilation: absent Preoxygenated: yes Patient position: sniffing MILS maintained throughout Final Airway Details Final airway type: endotracheal airway Successful airway: ETT Cuffed: yes Successful intubation technique: direct laryngoscopy Facilitating devices/methods: intubating stylet Endotracheal tube insertion site: oral Blade: Brayan Blade size: #3 ETT size (mm): 7.5 Placement verified by: chest auscultation and capnometry Measured from: teeth Number of attempts at approach: 1 Luda Browne CRNA ANESTHESIA ORDERAB LES documented in this encounter Visit Diagnoses Not on filedocumented in this encounter Administered Medications Inactive Administered Medications - up to 3 most recent administrations Medication Order MAR Action Action Date Dose Rate Site acetaminophen (Ofirmev) injection Intravenous, Administer over 15 Minutes, As needed, Starting on Nikki 04/13/22 at 0907, Anesthesia Intraprocedure Given 04/13/2022 9:07 AM EDT 1,000 mg DAPTOmycin (Cubicin) 514.2 mg Syringe 514.2 mg (6 mg/kg ? 85.7 kg), Intravenous, Administer over 3 Minutes, Once in OR, Starting on Nikki 04/13/22 at 0643, For 1 dose, Preprocedure, Suspected Indication (Select all that apply): Surgical Prophylaxis New Bag 04/13/2022 8:41 AM EDT 514 mg dexAMETHasone (Decadron) injection Intravenous, As needed, Starting on Nikki 04/13/22 at 0847, Anesthesia Intraprocedure Given 04/13/2022 8:47 AM EDT 8 mg ePHEDrine injection Intravenous, As needed, Starting on Nikki 04/13/22 at 0930, Anesthesia Intraprocedure Given 04/13/2022 9:48 AM EDT 10 mg Given 04/13/2022 9:34 AM EDT 10 mg Given 04/13/2022 9:30 AM EDT 10 mg fentaNYL (Sublimaze) injection Intravenous, As needed, Starting on Nikki 04/13/22 at 0829, Anesthesia Intraprocedure Given 04/13/2022 10:59 AM EDT 5 0 mcg Given 04/13/2022 9:13 AM EDT 50 mcg Given 04/13/2022 8:29 AM EDT 100 mcg hydrALAZINE (Apresoline) injection Intravenous, As needed, Starting on Nikki 04/13/22 at 0925, Anesthesia Intraprocedure Given 04/13/2022 9:25 AM EDT 10 mg lactated Ringer's infusion Intravenous, Continuous PRN, Starting on Nikki 04/13/22 at 0817, Anesthesia Intraprocedure New Bag 04/13/2022 8:17 AM EDT midazolam (Versed) injection Intravenous, As needed, Starting on Nikki 04/13/22 at 0829, Anesthesia Intraprocedure Given 04/13/2022 8:29 AM EDT 2 mg ondansetron (Zofran) injection Intravenous, As needed, Starting on Nikki 04/13/22 at 1036, Anesthesia Intraprocedure Given 04/13/2022 10:36 AM EDT 4 mg phenylephrine (Juan-Synephrine) syringe Intravenous, As needed, Starting on Nikki 04/13/22 at 0934, Anesthesia Intraprocedure Given 04/13/2022 9:49 AM EDT 10 0 mcg Given 04/13/2022 9:42 AM EDT 100 mcg Given 04/13/2022 9:34 AM EDT 100 mcg phenylephrine (Vazculep) 25,000 mcg in dextrose 5 % 250 mL (100 mcg/mL) infusion Intravenous, Continuous PRN, Starting on Nikki 04/13/22 at 0955, Anesthesia Intraprocedure New Bag 04/13/2022 9:55 AM EDT 25 mcg/min 15 mL /hr propofol (Diprivan) infusion 10 mg/mL Intravenous, As needed, Starting on Nikki 04/13/22 at 0829, Anesthesia Intraprocedure Given 04/13/2022 9:12 AM EDT 50 mg Given 04/13/2022 8:29 AM EDT 150 mg rocuronium (Zemuron) injection Intravenous, As needed, Starting on Nikki 04/13/22 at 0829, Anesthesia Intraprocedure Given 04/13/2022 8:29 AM EDT 50 mg ropivacaine (Naropin) 5 MG/ML injection Injection, Once PRN Procedure, Starting on Nikki 04/13/22 at 0833, For 1 dose, Anesthesia Intraprocedure Given 04/13/2022 8:33 AM EDT 40 mL sugammadex (Bridion) injection Intravenous, As needed, Starting on Nikki 04/13/22 at 1047, Anesthesia Intraprocedure Given 04/13/2022 10:47 AM EDT 2 00 mg tranexamic acid (Cyklokapron) injection Intravenous, As needed, Starting on Nikki 04/13/22 at 0907, Anesthesia Intraprocedure Given 04/13/2022 9:07 AM EDT 1,000 mg documented in this encounter Care Teams Disease Management Nurse Relationship Specialty Start Date End Date Ricardo Contreras MD [address] [place] [address] PCP - General Jalil Marie MD [address] [place] [address] Consulting Physician Hematology 04/12/22 documented as of this encounter
--- OUTSIDE RECORDS SUMMARY | 2024-08-18 13:11 | XMS_ITS | Encounter Summary ---
Author Organization [facility] nter Address [address] [place], [place] [id number] [place] [address] Care Team Providers Care Medical Office Rep Name Role Phone Ricardo Contreras MD Primary Care Provider + Jalil Marie MD Unavailable [phone] Encounter Details Date Type Department Care Team (Latest Contact Info) Description 04/14/2022 Travel Social History Tobacco Use Types Packs/Day [...] on filedocumented in this encounter Care Teams Medical Office Rep Relationship Specialty Start Date End Date Ricardo Contreras MD [address] [place] [address] PCP - General Jalil Marie MD [address] [place] [id number] Consulting Physician Hematology 04/12/22 documented as of this encounter
--- OUTSIDE RECORDS SUMMARY | 2024-08-18 13:11 | XMS_ITS | Encounter Summary ---
Author Organization [facility] nter Address [address] [place] [address] Care Team Providers Care Division Merchandise Manager Name Role Phone Ricardo Contreras MD Primary Care Provider + Jalil Marie MD Unavailable Reason for Visit * Auth/Cert Specialty Diagnoses / Procedures Referred By Frantz moreno Referred To Contact Diagnoses Acquired absence of breast and absent nipple, right Acquired absence of breast and nipple, right required absence of breast and nipple c50.911 (R breast cancer) Procedures AL GRAFT [id number] AL MASTOPEXY AL TISSUE ROAD FREIGHT BRAKE COUPLER PLACEMENT BREAST RECONSTRUCTION AL IMPLNT BIO IMPLNT FOR SOFT TISSUE REINFORCEMENT BREAST RECONSTRUCTION, TOTAL MASTOPEXY Sunday Forrest MD [address] [place] [address] [facility] [address], [facility] [place] [address] Referral ID Status Reason Start Date Expiration Date Visits Re quested Visits Authorized [id number] 1 1 Encounter Details Date Type Department Care Team (Latest Contact Info) Description 04/13/2022 6:36 AM EDT - 04/13/2022 12:25 PM EDT Hospital Encounter [facility] [address] [facility] [place] [address] Sunday Forrest MD [address] [place] [address] Acquired absence of breast and absent nipple, right; Acquired absence of breast and nipple, right Discharge Disposition: Home or Self Care Social [...] Sign Reading Time Taken Comments Blood Pressure 160/88 04/13/2022 12:10 PM EDT Pulse 76 04/13/2022 12:10 PM EDT Temperature 36.7 ??C (98 ??F) 04/13/2022 11:30 AM EDT Respiratory Rate 19 04/13/2022 12:10 PM EDT Oxygen Saturation 98% 04/13/2022 12:10 PM EDT Inhaled Oxygen Concentration - - Weight 98.9 kg (218 lb 0.6 oz) 04/13/2022 6:47 A M EDT Height 160 cm (5' 3 ) 04/13/2022 6:47 AM EDT Body Mass Index 38.62 04/13/2022 6:47 AM EDT documented in this encounter Medications at Time of Discharge Medication Sig Dispensed Refills Start Date End Date atorvastatin (Lipitor) 80 MG tablet Take 1 tablet (80 mg) by mouth in the morning. Take morning of surgery citalopram (CeleXA) 40 MG tablet Take 1 tablet (40 mg) by mouth in the morning. Take morning of surgery 03/16/2022 ergocalciferol (Vitamin D2) 1.25 MG (92687 UT) capsule 1 capsule (50,000 Units) 1 [...] with evening meal. Hold morning of procedure omeprazole (PriLOSEC) [address] capsule Take [...] and at bedtime. Take morning of procedure oxyCODONE-acetaminophe n (Percocet) 5-325 MG tablet Take [...] TABLET BY MOUTH EVERY NIGHT AT BEDTIME 06/21/2022 documented as of this encounter H&P Notes * Sunday Forrest MD - 04/13/2022 8:00 AM EDT H&P reviewed. The patient was examined and there are no changes to the H&P. Source Note - Sunday Forrest MD - 03/30/2022 10:45 AM EDT Subjective : Patient ID: Katherin Gomez is a 51 y.o. female. History of Present Illness: S/P rt mastectomy and 2 fat transfers for staged rt breat reconstruction. Objective : Physical Exam Constitutional She appears well-developed and well-nourished. Eyes System normal. Pulmonary/Chest Effort normal. Skin Skin is warm. Psychiatric She has a normal mood and affect. Her behavior is normal. Left breast ptosis. Left nipple below IMF. Rt mastectomy scar healed well. Fat transferred to rt chest with good take. Assessment/Plan : 1. Ptosis of left breast 2. Acquired absence of breast and absent nipple, right - CBC auto differential; Future - Comprehensive metabolic panel; Future - POCT HGB A1C - Blood Pt scheduled for left mastopexy and delayed rt breast reconstruction with TE/Alloderm. Has normal Al and Pre Al. Pr signed ASPS consents. Had chest abscess 8y ago, culture results not in Epic or NextGen. Alloderm 16x20 [id number] medium, Greenwood Artoura UHP smooth 650 ml. documented in this encounter Miscellaneous Notes * Perioperative Nursing Note - Twan Morejon RN - 04/13/2022 12:24 PM EDT Patient and aunt again instructed how to empty clau drains and what to do if the prevena wound vac becomes disconnected, number provided to recovery in case of any questions. * Perioperative Nursing Note - Twan Morejon RN - 04/13/2022 12:12 PM EDT Iv removed from left hand * Op Note - Sunday Forrest MD - 04/13/2022 11:04 AM EDT [facility] OPERATIVE REPORT - [id number] Date of Procedure: 04/13/2022 Name: KATHERIN GOMEZ : 1970 Sex: Female Admit Date: 04/13/2022 Room #: SURGERY POOL Bed: 2942 Admitting Physician: SUNDAY FORREST Attending Physician: SUNDAY FORREST Referring Physician: , Proceduralist/Surgeon: Sunday Forrest MD, F.A.C.S. ([id number]) PRE-OPERATIVE DIAGNOSES: 1. Acquired absence of right breast after right mastectomy for breast cancer. 2. Left breast ptosis. POST-OPERATIVE DIAGNOSES: 1. Acquired absence of right breast after right mastectomy for breast cancer. 2. Left breast ptosis. PROCEDURES PERFORMED: 1. Delayed right breast prepectoral reconstruction in stages with placement of tissue problem manager and AlloDerm. 2. Left mastopexy for symmetry. ASSISTANTS: Deena Sanchez ESTIMATED BLOOD LOSS: 40ml. FINDINGS: See Post-Operative Diagnoses SPECIMEN REMOVED: Left breast skin and tissue 36.5 g. COMPLICATIONS: None ANESTHESIA: General endotracheal tube Jhon PECS II block IMPLANTS: On the right chest tissue problem manager placed is a Greenwood Artoura ultrahigh profile smooth, 650 mL. Reference number SMX [facility], lot #[id number], serial #[id number]. It was inflated with 120 mL of air. Called and placed [place] AlloDerm select tissue matrix perforated 16 x 20 cm, 320 cm, medium thickness 1.60.4 mm. Lot number [id number], reference #[id number]. INDICATIONS: Patient is a 47-year-old female who underwent right mastectomy for breast cancer. Patient was evaluated in the office and decided to have right delayed breast reconstruction with tissue expanders and AlloDerm and left mastopexy for symmetry. Patient had gone already cleared for transfer to right chest wall in preparation for the right breast reconstruction. All treatment options risk and alternatives were discussed with the patient detail. All questions were answered. Patient signed ASPS consent. TECHNIQUE: Patient was marked in the holding area for the medial pedicle and vertical scar mastopexy. The width of the pedicle was set at 7 cm, the new position of the areola at the level of the inframammary fold, and the inferior end of the incision 2 cm from the existing inframammary fold. Patient was placed supine on the operating table. After induction of general anesthesia and bilateral PECS II block, Foster catheter was placed and chest was prepped and draped according to the usual sterile surgical fashion. The central part of the right mastectomy incision was divided with 15 blade. With the Bovie cautery dissection was continued to the level of the pectoralis major muscle. At this level the mastectomy flaps were raised superiorly and inferiorly above the level of the pectoralis major muscle. Superior flap was raised to the level of the clavicle and inferior flap to the level of the inframammary fold. Wound was irrigated meticulous hemostasis obtained with the Bovie cautery. As the patient opted for prepectoral breast reconstruction, for tissue support and in order to have complete coverage of the tissue problem manager AlloDerm select tissue matrix RTU 16 x 20 cm perforated was obtained. It was placed in a bath of saline for 5 minutes and for another 5 minutes in a double antibiotic solution. Using 2-0 Vicryl sutures AlloDerm was wrapped around the tissue problem manager. 200 mils of air were placed in the tissue problem manager. AlloDerm and tissue problem manager were then placed in Betadine solution. The wound was irrigated with triple antibiotic solution and then with Betadine solution. Surgeon's and court assistant's gloves were changed and the patient skin was prepped with Betadine solution and new sterile blue towels again. Tissue problem manager with AlloDerm were placed in the right chest wound. Tissue problem manager tabs were secured to the chest wall with interrupted #0 PDS sutures. Wound was irrigated again with triple antibiotic solution and Betadine solution. Through 2 stab wounds on the right chest wall two #19 Hungarian round fluted silicone drains were placed. Both of them are connected to self suction and secured to the skin with 3-0 Ethilon sutures. One drain was placed at the level of the inframammary fold and the other superior to the problem manager. The deeper layers of the flaps were approximated with strata fix 0 PDS symmetric unidirectional suture. Deep dermis and subcutaneous tissue was approximated with interrupted 2-0 Monocryl sutures. Skin was closed with running intradermal 3-0 strata fix Monocryl spiral unidirectional suture. At the base of the left breast tourniquet was applied with a lap sponge and a Angelia clamp. With a 45 mm areolar marker, a marking was created around the right areola. This marking was incised with 15 blade. Incisions were infiltrated with lidocaine 1% with epinephrine. With the same blade all incisions were performed on the right side for the medial pedicle and vertical scar technique. With a #10 blade de-epithelization was performed over the right medial pedicle. With cautery the right medial pedicle was created. With the same cautery skin and small amount of breast tissue were excised in a horseshoe pattern around the right medial pedicle. Wound was irrigated, meticulous hemostasis obtained with the Bovie cautery. Wound was prepped with Betadine solution again. The inferior opening of the new areola site was approximated with a single 4-0 PDS suture. With the same suture the right medial pedicle was transposed superiorly and the areolar opening was secured at the 12 o'clock position. With a double skin hook the 12 o'clock position of the new areola opening was retracted superiorly. With 0 PDS sutures pilar sutures were placed in the parenchyma of the inferior breast. Skin was temporarily approximated with lilia. The back of the bed was raised again, and sutures adjusted for symmetry. Symmetry in size and shape was observed, the back of the bed was leveled and lilia removed. Deep dermis was approximated in the vertical scar with interrupted 2-0 Monocryl and PDS sutures. Areola was approximated with interrupted 3-0 Monocryl placed in the deep dermis. All skin incisions closed with a running intradermal 3-0 strata fix Monocryl spiral unidirectional suture. At the end of the procedure nipple areolar complexes and skin flaps appeared pink and viable. Both incisions were covered with Prevena dressing. After placement of Prevena there was no obstruction and no leak. Around the drains Bactroban ointment was applied and ABDs. The dressing was completed with a surgical bra. Patient tolerated the procedure well, was extubated in the operating room and transferred to the recovery room in excellent condition. At the end of the case all instrument needle and sponge counts were found to be correct. Follow-up will be in the plastic surgery clinic tomorrow. [id number] by Sunday Forrest MD, F.A.C.S., 04/13/2022 11:04 EDT (Approved) [facility] * Patient Education - Sunday Forrest MD - 04/13/2022 6:46 AM EDT Patient Education Table of Contents Breast Reconstruction With Implant or Tissue Poultry Picker Insertion Scopolamine skin patches To view videos and all your education online visit, [email or web address] or scan this QR code with your smartphone. Breast Reconstruction With Implant or Tissue Poultry Picker Insertion Breast reconstruction is surgery to rebuild a breast mound after a breast was removed as part of cancer treatment. Many different procedures can be used in breast reconstruction. One method involves creating a new breast mound with an implant or a tissue problem manager: An implant that is filled with silicone or saline may be placed under the breast flap during your first surgery. A tissue problem manager is an empty implant that is gradually filled with saline over a period of weeks as your skin and muscles expand. This option requires several follow-up visits. When your breast mound reaches the right size, the problem manager will be removed surgically and replaced with a regular implant. Breast reconstruction may be done at the same time as the breast removal (mastectomy), or it may bedone at a later date. Tell a health care provider about: Any allergies you have. All medicines you are taking, including vitamins, herbs, eye drops, creams, and wwtz-ahv-innklrt medicines. Any problems you or family members have had with anesthetic medicines. Any blood disorders you have. Any surgeries you have had. Any medical conditions you have. Whether you are or may be . What are the risks? Generally, this is a safe procedure. However, problems may occur, including: Infection. Bleeding. Allergic reactions to medicines. Damage to other structures or organs. Scars and bruising. Need for follow-up surgeries. Loss of feeling in your reconstructed breast. Loss of some or all of the flap and breast mound. A burst or punctured implant. Breast implants can make mammograms difficult to do. The implants may affect the result of the mammogram or the evaluation of the results. What happens before the procedure? Staying hydrated Follow instructions from your health care provider about hydration, which may include: Up to 2 hours before the procedure - you may continue to drink clear liquids, such as water, clear fruit juice, black coffee, and plain tea. Eating and drinking restrictions Follow instructions from your health care provider about eating and drinking, which may include: 8 hours before the procedure - stop eating heavy meals or foods such as meat, fried foods, or fattyfoods. 6 hours before the procedure - stop eating light meals or foods, such as toast or cereal. 6 hours before the procedure - stop drinking milk or drinks that contain milk. 2 hours before the procedure - stop drinking clear liquids. General instructions Ask your health care provider about: Changing or stopping your regular medicines. This is especially important if you are taking diabetes medicines or blood thinners. Taking medicines such as aspirin and ibuprofen. These medicines can thin your blood. Do not take these medicines unless your health care provider tells you to take them. Taking jqsm-lfv-uhbesex medicines, vitamins, herbs, and supplements. Ask your health care provider how your surgical site will be marked or identified. You may be asked to shower with a germ-killing soap. You may be given antibiotic medicine to help prevent an infection. Plan to have someone take you home from the hospital or clinic. What happens during the procedure? To lower your risk of infection: Your health care team will wash or sanitize their hands. Your skin will be washed with soap. An IV will be inserted into one of your veins. You will be given one or more of the following: A medicine to help you relax (sedative). A medicine to make you fall asleep (general anesthetic). Your surgeon may saman your breast to plan the incisions. Your surgeon may create a pocket of skin, fat, and muscle for the implant to go into. The implant or tissue problem manager will then be inserted into the pocket. For a tissue problem manager, your health care provider may inject some saline into the problem manager so that it fills out the pocket. A thin tube may be put in place to drain the incision as you heal. The health care provider will use stitches (sutures) to close the pocket and the incisions. The incision will be covered with a bandage and a pressure wrap. The procedure may vary among health care providers and hospitals. What happens after the procedure? Your blood pressure, heart rate, breathing rate, and blood oxygen level will be monitored until themedicines you were given have worn off. You will be given pain medicine as needed. Your IV can be removed when you are able to eat and drink. You may need to wear a supportive bra or undergarment as you heal. Do not drive for 24 hours if you were given a sedative during your procedure. If a tissue problem manager was used, you will have to come back to your surgeon for periodic fills with saline. Summary In this method of breast reconstruction, a new breast mound may be created with an implant or with a tissue problem manager that is later replaced with an implant. A tissue problem manager is an empty implant that is gradually filled with saline over a period of weeks as your skin and muscles expand. The reconstruction procedure might be performed as part of the same procedure as a mastectomy, or it can be done at a later date. This information is not intended to replace advice given to you by your health care provider. Make sure you discuss any questions you have with your health care provider. Document Released: 09/17/2015Document Revised: 1Document Reviewed: 03/18/2021 [employer] Patient Education ? 2021 [employer] Scopolamine skin patches What is this medication? SCOPOLAMINE (skoe YAIR a meen) is used to prevent nausea and vomiting caused by motion sickness, anesthesia and surgery. This medicine may be used for other purposes; ask your health care provider or pharmacist if you have questions. COMMON BRAND NAME(S): Transderm Scop What should I tell my care team before I take this medication? They need to know if you have any of these conditions: are scheduled to have a gastric secretion test glaucoma heart disease kidney disease liver disease lung or breathing disease, like asthma mental illness prostate disease seizures stomach or intestine problems trouble passing urine an unusual or allergic reaction to scopolamine, atropine, other medicines, foods, dyes, or preservatives or trying to get breast-feeding How should I use this medication? This medicine is for external use only. Follow the directions on the prescription label. Wear only 1 patch at a time. Choose an area behind the ear, that is clean, dry, hairless and free from any cuts or irritation. Wipe the area with a clean dry tissue. Peel off the plastic backing of the skin patch, trying not to touch the adhesive side with your hands. Do not cut the patches. Firmly apply to the area you have chosen, with the metallic side of the patch to the skin and the goins-colored side showing. Once firmly in place, wash your hands well with soap and water. Do not get this medicine intoyour eyes. After removing the patch, wash your hands and the area behind your ear thoroughly with soap and water. The patch will still contain some medicine after use. To avoid accidental contact or ingestion by children or pets, fold the used patch in half with the sticky side together and throw away in the trash out of the reach of children and pets. If you need to use a second patch after you remove the first, place it behind the other ear. A special MedGuide will be given to you by the pharmacist with each prescription and refill. Be sure to read this information carefully each time. Talk to your flap presser regarding the use of this medicine in children. Special care may be needed. Overdosage: If you think you have taken too much of this medicine contact a poison control center or emergency room at once. NOTE: This medicine is only for you. Do not share this medicine with others. What if I miss a dose? This does not apply. This medicine is not for regular use. What may interact with this medication? alcohol antihistamines for allergy cough and cold atropine certain medicines for anxiety or sleep certain medicines for bladder problems like oxybutynin, tolterodine certain medicines for depression like amitriptyline, fluoxetine, sertraline certain medicines for stomach problems like dicyclomine, hyoscyamine certain medicines for Parkinson's disease like benztropine, trihexyphenidyl certain medicines for seizures like phenobarbital, primidone general anesthetics like halothane, isoflurane, methoxyflurane, propofol ipratropium local anesthetics like lidocaine, pramoxine, tetracaine medicines that relax muscles for surgery phenothiazines like chlorpromazine, mesoridazine, prochlorperazine, thioridazine narcotic medicines for pain other belladonna alkaloids This list may not describe all possible interactions. Give your health care provider a list of all the medicines, herbs, non-prescription drugs, or dietary supplements you use. Also tell them if you smoke, drink alcohol, or use illegal drugs. Some items may interact with your medicine. What should I watch for while using this medication? Limit contact with water while swimming and bathing because the patch may fall off. If the patch falls off, throw it away and put a new one behind the other ear. You may get drowsy or dizzy. Do not drive, use machinery, or do anything that needs mental alertness until you know how this medicine affects you. Do not stand or sit up quickly, especially if you are an older patient. This reduces the risk of dizzy or fainting spells. Alcohol may interfere with the effect of this medicine. Avoid alcoholic drinks. Your mouth may get dry. Chewing sugarless gum or sucking hard candy, and drinking plenty of water may help. Contact your healthcare professional if the problem does not go away or is severe. This medicine may cause dry eyes and blurred vision. If you wear contact lenses, you may feel some discomfort. Lubricating drops may help. See your healthcare professional if the problem does not go away or is severe. If you are going to need surgery, an MRI, CT scan, or other procedure, tell your healthcare professional that you are using this medicine. You may need to remove the patch before the procedure. What side effects may I notice from receiving this medication? Side effects that you should report to your doctor or health daycare manager as soon as possible: allergic reactions like skin rash, itching or hives; swelling of the face, lips, or tongue blurred vision changes in vision confusion dizziness eye pain fast, irregular heartbeat hallucinations, loss of contact with reality nausea, vomiting pain or trouble passing urine restlessness seizures skin irritation stomach pain Side effects that usually do not require medical attention (report to your doctor or health daycare manager if they continue or are bothersome): drowsiness dry mouth headache sore throat This list may not describe all possible side effects. Call your doctor for medical advice about side effects. You may report side effects to FDA at 3-811-ONG-6093. Where should I keep my medication? Keep out of the reach of children. Store at room temperature between 20 and 25 degrees C (68 and 77 degrees F). Keep this medicine in the foil package until ready to use. Throw away any unused medicine after the expiration date. NOTE: This sheet is a summary. It may not cover all possible information. If you have questions about this medicine, talk to your doctor, pharmacist, or health care provider. ? 2021 Elsevier/Gold Standard (2018-11-15 16:14:46) documented in this encounter Plan of Treatment Not on file documented as of this encounter Procedures Procedure Name Priority Date/Time Associated Diagnosis Comments TISSUE EXAM Routine 04/13/2022 10:06 AM EDT Acquired absence of breast and absent nipple, right Acquired absence of breast and nipple, right AL MASTOPEXY 04/13/2022 8:16 AM EDT Acquired absence of breast and absent nipple, right Acquired absence of breast and nipple, right Case Notes 09:11 attempted to notify family of procedure start, no answer at this time, text message sent via [employer] system. 09:25 attempted to update family, no answer at this time. AL GRAFT [id number] 04/13/2022 8:16 AM EDT Acquired absence of breast and absent nipple, right Acquired absence of breast and nipple, right Case Notes 09:11 attempted to notify family of procedure start, no answer at this time, text message sent via [employer] system. 09:25 attempted to update family, no answer at this time. POCT GLUCOSE PERFORMABLE Routine 04/13/2022 6:58 AM EDT documented in this encounter Results * Tissue Exam (04/13/2022 10:06 AM EDT) Final Diagnosis Left Breast Tissue, Excision: -Benign skin and adipose tissue with sparse chronic inflammatory cells. 04/17/2022 2:52 PM EDT [facility] Case Report Surgical Pathology ?Case: [id number] ? Authorizing Provider: ??Sunday [place] MD ?Collected: ? 04/13/2022 1006 ? Ordering Location: ? [facility] ?Received: ?04/14/2022 0705 ? Pathologist: ? Terrence Hernandez DO ? Specimen: ?Breast, Left, LEFT BREAST TISSUE ? 04/17/2022 2:52 PM EDT [facility] Clinical Information Pre-op diagnosis: required absence of breast and nipple c50.911 (R breast cancer) 04/17/2022 2:52 PM EDT [facility] Gross Description 1. Breast, Left. The specimen is received in formalin labeled with the patient's name, accession number and left breast tissue, consists of multiple irregular fragments of breast and skin tissue. The largest piece measures 7 x 4 1/2 x 1.6 cm. No suspicious lesions are seen. One section is submitted in cassette A. KAH/cm 04/17/2022 2:52 PM EDT [facility] Microscopic Description Tissue blocks are prepared and slides are examined microscopically on all specimens. See diagnosis for details. 04/17/2022 2:52 PM EDT [facility] Tissue Left breast structure / Unknown 04/13/2022 10:06 AM EDT 04/14/2022 7:05 AM EDT Comment:Pre-op diagnosis: required absence of breast and nipple c50.911 (R breast cancer) Sunday [place] MD LAB PATHOLOGY ORDER DIALLO Performing Organization Address City/[facility]/ZIP Co de Phone Number [facility] [address] [place] [address], [place] [phone] * (ABNORMAL) POCT glucose (04/13/2022 6:58 AM EDT) Glucose 141(H) 70 - 110 mg/dL 04/13/2022 7:16 AM EDT [facility] Comment:No Action Blood Capillary blood specimen / Unknown 04/13/2022 6:58 AM EDT 04/13/2022 7:16 AM EDT Sunday [place] MD LAB POINT OF CARE T EST DOCKED DEVICE UNSOLICITED RESULTS Performing Organization Address City/[facility]/ZIP Co de Phone Number [facility] [address] [place] [address], [place] [phone] documented in this encounter Visit Diagnoses Diagnosis Acquired absence of breast and absent nipple, right Acquired absence of breast and nipple, right documented in this encounter Administered Medications Inactive Administered Medications - up to 3 most recent administrations Medication Order MAR Action Action Date Dose Rate Site fentaNYL (Sublimaze) injection 50 mcg 50 mcg, Intravenous, Every 5 min PRN, severe pain (8-10), Starting on Nikki 04/13/22 at 1133, For 2 doses, Recovery (only), If ordered IV, slowly push over 3-5 minutes. HYDROmorphone PF (Dilaudid) injection 0.5 mg 0.5 mg, Intravenous, Every 5 min PRN, severe pain (8-10), Starting on Nikki 04/13/22 at 1133, For 4 doses, Recovery (only) HYDROmorphone PF (Dilaudid) injection 1 mg 1 mg, Intravenous, Every 3 hours PRN, severe pain (8-10), Starting on Nikki 04/13/22 at 1108, Recovery (only) Given 04/13/2022 12:01 PM EDT 1 mg ondansetron (Zofran) injection 4 mg 4 mg, Intravenous, Every 15 min PRN, nausea, Starting on Nikki 04/13/22 at 1133, For 1 dose, Recovery (only) scopolamine (Transderm-Scop) patch 1 patch 1 patch, Transdermal, Administer over 24 Hours, Once, On Nikki 04/13/22 at 0700, For 1 dose, Preprocedure, Apply to clean, hairless skin behind the ear. When used for post-operative nausea and vomiting, remove 24 hours after applied. Apply to hairless area of skin behind the ear. Medication Applied 04/13/2022 7:00 AM EDT 1 patch Behind Left Ear sodium chloride 0.9 % flush 1 mL 1 mL, Intravenous, Every 8 hours PRN, line care, Starting on Nikki 04/13/22 at 0643, Preprocedure documented in this encounter Active and Recently Administered Medications Times are shown in EDT. Scheduled Medication Order 04/11/2022 04/12/2022 04/13/2022 DAPTOmycin (Cubicin) 514.2 mg Syringe (COMPLETED) 514.2 mg (6 mg/kg ? 85.7 kg), Intravenous, Administer over 3 Minutes, Once in OR, Starting on Nikki 04/13/22 at 0643, For 1 dose, Preprocedure, Suspected Indication (Select all that apply): Surgical Prophylaxis 0841 ([facility] - Prov ider: Luda Browne CRNA) scopolamine (Transderm-Scop) patch 1 patch 1 patch, Transdermal, Administer over 24 Hours, Once, On Nikki 04/13/22 at 0700, For 1 dose, Preprocedure, Apply to clean, hairless skin behind the ear. When used for post-operative nausea and vomiting, remove 24 hours after applied. Apply to hairless area of skin behind the ear. 0700 (Medication Erin lied - Provider: Francisco Javier Sprague RN)1225 (Due: Medication Removed - Provider: Automatic Discharge Provider - Comment: Time automatically adjusted from order being discontinued) PRN Medication Order 04/11/2022 04/12/2022 04/13/2022 EPINEPHrine (Adrenalin) 1 mg/10mL injection (CANCELED) As needed, Starting on Nikki 04/13/22 at 0934, Intraprocedure 0934 (Given - Provid er: Sunday [place] MD - Comment: added to 0.5% lidocaine) fentaNYL (Sublimaze) injection 50 mcg 50 mcg, Intravenous, Every 5 min PRN, severe pain (8-10), Starting on Nikki 04/13/22 at 1133, For 2 doses, Recovery (only), If ordered IV, slowly push over 3-5 minutes. gentamicin (Garamycin) injection (CANCELED) As needed, Starting on Nikki 04/13/22 at 0933, Intraprocedure 0933 (Given - Provid er: Sunday [place] MD - Comment: used in 1 liter ns for irrigation) HYDROmorphone PF (Dilaudid) injection 0.5 mg 0.5 mg, Intravenous, Every 5 min PRN, severe pain (8-10), Starting on Nikki 04/13/22 at 1133, For 4 doses, Recovery (only) HYDROmorphone PF (Dilaudid) injection 1 mg 1 mg, Intravenous, Every 3 hours PRN, severe pain (8-10), Starting on Nikki 04/13/22 at 1108, Recovery (only) 1201 (Given - Provid er: Twan Morejon RN) lidocaine PF (Xylocaine) 0.5 % injection (CANCELED) As needed, Starting on Nikki 04/13/22 at 0933, Intraprocedure 0933 (Given - Provid er: Sunday [place] MD - Comment: epi 1:100,000 added. 0.5ml added to 50 ml vial) mupirocin (Bactroban) 2 % ointment (CANCELED) As needed, Starting on Nikki 04/13/22 at 1050, Intraprocedure 1050 (Given - Provid er: Sunday [place] MD) ondansetron (Zofran) injection 4 mg 4 mg, Intravenous, Every 15 min PRN, nausea, Starting on Nikki 04/13/22 at 1133, For 1 dose, Recovery (only) ondansetron (Zofran) injection 4 mg 4 mg, Intravenous, Every 6 hours PRN, nausea, Starting on Nikki 04/13/22 at 1109, Recovery (only) oxyCODONE-acetaminophen (Percocet) 5-325 MG per tablet 1 tablet 1 tablet, Oral, Every 4 hours PRN, mild pain (1-4), Starting on Nikki 04/13/22 at 1108, Recovery (only) oxyCODONE-acetaminophen (Percocet) 5-325 MG per tablet 2 tablet 2 tablet, Oral, Every 4 hours PRN, moderate pain (5-7), Starting on Nikki 04/13/22 at 1108, Recovery (only) sodium chloride 0.9 % flush 1 mL(Linked Group 1) 1 mL, Intravenous, Every 8 hours PRN, line care, Starting on Nikki 04/13/22 at 0643, Preprocedure sodium chloride 0.9 % irrigation solution (CANCELED) As needed, Starting on Nikki 04/13/22 at 0932, Intraprocedure 0932 (Given - Provid er: Sunday [place] MD) vancomycin (Vancocin) vial for injection (CANCELED) As needed, Starting on Nikki 04/13/22 at 0932, Intraprocedure 0932 (Given - Provid er: Sunday [place] MD - Comment: used in 1 liter ns for irrigation) Linked Groups Order Group 1: Insert peripheral IV (CANCELED) Once, On Nikki 04/13/22 at 0644, For 1 occurrence, Routine, Preprocedure And Saline lock IV (CANCELED) Once, On Nikki 04/13/22 at 0644, For 1 occurrence, Routine, Preprocedure And sodium chloride 0.9 % flush 1 mLJump to med 1 mL, Intravenous, Every 8 hours PRN, line care, Starting on Nikki 04/13/22 at 0643, Preprocedure documented in this encounter Care Teams Division Merchandise Manager Relationship Specialty Start Date End Date Ricardo Contreras MD [address] [place] [address] PCP - General Jalil Marie MD [address] [place] [address] Consulting Physician Hematology 04/12/22 documented as of this encounter
--- OUTSIDE RECORDS SUMMARY | 2024-08-18 13:11 | XMS_ITS | Encounter Summary ---
Author Organization [facility] nter Address [address] [place] [address] Care Team Providers Care Pulpwood Contractor Name Role Phone Ricardo Contreras MD Primary Care Provider + Jalil Marie MD Unavailable Reason for Visit * Auth/Cert Specialty Diagnoses / Procedures Referred By Frantz moreno Referred To Contact Diagnoses Acquired absence of breast and absent nipple, right Acquired absence of breast and nipple, right required absence of breast and nipple c50.911 (R breast cancer) Procedures AK GRAFT [id number] AK MASTOPEXY AK TISSUE METALIZING MACHINE OPERATOR AUTOMATIC PLACEMENT BREAST RECONSTRUCTION AK IMPLNT BIO IMPLNT FOR SOFT TISSUE REINFORCEMENT BREAST RECONSTRUCTION, TOTAL MASTOPEXY Sunday [place] MD [address] [place] [address] [facility] [address] [facility] [place] [address] Referral ID Status Reason Start Date Expiration Date Visits Re quested Visits Authorized [id number] 1 1 Encounter Details Date Type Department Care Team (Late st Contact Info) Description 04/13/2022 8:00 AM EDT - 04/13/2022 1:00 PM EDT Surgery [facility] [address], [place] [place] [address] Sunday [place] MD [address] [place] [address] BREAST RECONSTRUCTION, RIGHT WITH TISSUE EXPANDERS AND ALLODERM [03362 (CPT??)] Social History Tobacco Use Types Packs/Day [...] surgery 03/16/2022 ergocalciferol (Vitamin D2) 1.25 MG (33054 UT) capsule 1 capsule (50,000 Units) 1 [...] ago, culture results not in Epic or [email or web address].comGen. Alloderm 16x20 [id number] medium, [place] Artoura UHP smooth 650 ml. documented in [...] [place] MD - 04/13/2022 11:04 AM EDT [facility] OPERATIVE REPORT - [id number] Date of Procedure: 04/13/2022 Name: KATHERIN GOMEZ : 1970 Sex: Female Admit Date: 04/13/2022 Room #: SURGERY POOL Bed: 2942 Admitting Physician: SUNDAY [place] Attending Physician: SUNDAY [place] Referring Physician: , Proceduralist/Surgeon: Sunday [place] MD, F.A.C.S. ([id number]) PRE-OPERATIVE DIAGNOSES: 1. Acquired absence of right breast after right mastectomy for breast cancer. 2. Left breast ptosis. POST-OPERATIVE DIAGNOSES: 1. Acquired absence of right breast after right mastectomy for breast cancer. 2. Left breast ptosis. PROCEDURES PERFORMED: 1. Delayed right breast prepectoral reconstruction in stages with placement of tissue vice president and portfolio manager and AlloDerm. 2. Left mastopexy for symmetry. ASSISTANTS: Deena Sanchez ESTIMATED BLOOD LOSS: 40ml. FINDINGS: See Post-Operative Diagnoses SPECIMEN REMOVED: Left breast skin and tissue 36.5 g. COMPLICATIONS: None ANESTHESIA: General endotracheal tube Jhon PECS II block IMPLANTS: On the right chest tissue vice president and portfolio manager placed is a [place] Artoura ultrahigh profile smooth, 650 mL. Reference number SMXP 130 RU, lot #[id number], serial #[id number]. It was inflated with 120 mL of air. Called and placed [place] AlloDerm select tissue matrix perforated 16 x 20 cm, 320 cm, medium thickness 1.60.4 mm. Lot number [id number], reference #[id number]. INDICATIONS: Patient is a 47-year-old female who [...] to have complete coverage of the tissue vice president and portfolio manager AlloDerm select tissue matrix RTU 16 x 20 cm perforated was obtained. It was placed in a bath of saline for 5 minutes and for another 5 minutes in a double antibiotic solution. Using 2-0 Vicryl sutures AlloDerm was wrapped around the tissue vice president and portfolio manager. 200 mils of air were placed in the tissue vice president and portfolio manager. AlloDerm and tissue vice president and portfolio manager were then placed in Betadine solution. The wound was irrigated with triple antibiotic solution and then with Betadine solution. Surgeon's and health education assistant's gloves were changed and the patient skin was prepped with Betadine solution and new sterile blue towels again. Tissue vice president and portfolio manager with AlloDerm were placed in the right chest wound. Tissue vice president and portfolio manager tabs were secured to the chest wall with interrupted #0 PDS sutures. Wound was irrigated again with triple antibiotic solution and Betadine solution. Through 2 stab wounds on the right chest wall two #19 [place] round fluted silicone drains were placed. Both of them are connected to self suction and secured to the skin with 3-0 Ethilon sutures. One drain was placed at the level of the inframammary fold and the other superior to the vice president and portfolio manager. The deeper layers of the flaps [...] be in the plastic surgery clinic tomorrow. [id number] by Sunday [place] MD, F.A.C.S., 04/13/2022 11:04 EDT (Approved) Created in [facility] * Patient Education - Sunday [place] MD - 04/13/2022 6:46 AM EDT Patient Education Table of Contents Breast Reconstruction With Implant or Tissue Director Of Curriculum Insertion Scopolamine skin patches To view videos and all your education online visit, [email or web address] or scan this QR code with your smartphone. Breast Reconstruction With Implant or Tissue Director Of Curriculum Insertion Breast reconstruction is surgery to rebuild a breast mound after a breast was removed as part of cancer treatment. Many different procedures can be used in breast reconstruction. One method involves creating a new breast mound with an implant or a tissue vice president and portfolio manager: An implant that is filled with silicone or saline may be placed under the breast flap during your first surgery. A tissue vice president and portfolio manager is an empty implant that is gradually filled with saline over a period of weeks as your skin and muscles expand. This option requires several follow-up visits. When your breast mound reaches the right size, the vice president and portfolio manager will be removed surgically and replaced with a regular implant. Breast reconstruction may be done at the same time as the breast removal (mastectomy), or it may bedone at a later date. Tell a health care provider about: Any allergies you have. All medicines you are taking, including vitamins, herbs, eye drops, creams, and dxhb-sgo-jjrrqdu medicines. Any problems you or family members [...] provider tells you to take them. Taking frie-xig-rcbtoro medicines, vitamins, herbs, and supplements. Ask your [...] to go into. The implant or tissue vice president and portfolio manager will then be inserted into the pocket. For a tissue vice president and portfolio manager, your health care provider may inject some saline into the vice president and portfolio manager so that it fills out the [...] sedative during your procedure. If a tissue vice president and portfolio manager was used, you will have to come back to your surgeon for periodic fills with saline. Summary In this method of breast reconstruction, a new breast mound may be created with an implant or with a tissue vice president and portfolio manager that is later replaced with an implant. A tissue vice president and portfolio manager is an empty implant that is [...] Document Released: 09/17/2015Document Revised: 1Document Reviewed: 03/18/2021 [employer] Patient Education ? 2021 [employer] Scopolamine skin patches What is this [...] information carefully each time. Talk to your neuro psych sales specialist regarding the use of this medicine in [...] should report to your doctor or health gericare aide teacher as soon as possible: allergic reactions like [...] attention (report to your doctor or health gericare aide teacher if they continue or are bothersome): drowsiness dry mouth headache sore throat This list may not describe all possible side effects. Call your doctor for medical advice about side effects. You may report side effects to FDA at 3-987-WRW-5943. Where should I keep my medication? Keep [...] Acquired absence of breast and nipple, right AK MASTOPEXY 04/13/2022 8:16 AM EDT Acquired absence of breast and absent nipple, right Acquired absence of breast and nipple, right Case Notes 09:11 attempted to notify family of procedure start, no answer at this time, text message sent via [employer] system. 09:25 attempted to update family, no answer at this time. AK GRAFT [id number] 04/13/2022 8:16 AM EDT Acquired absence of breast and absent nipple, right Acquired absence of breast and nipple, right Case Notes 09:11 attempted to notify family of procedure start, no answer at this time, text message sent via [employer] system. 09:25 attempted to update family, no answer at this time. POCT GLUCOSE PERFORMABLE Routine 04/13/2022 6:58 AM EDT documented in this encounter Results * Tissue Exam (04/13/2022 10:06 AM EDT) Final Diagnosis Left Breast Tissue, Excision: -Benign skin and adipose tissue with sparse chronic inflammatory cells. 04/17/2022 2:52 PM EDT [facility] Case Report Surgical Pathology ?Case: [id number] ? Authorizing Provider: ??Sunday [place] MD ?Collected: ? 04/13/2022 1006 ? Ordering Location: ? [facility] ?Received: ?04/14/2022 0705 ? Pathologist: ? Terrence Hernandez DO ? Specimen: ?Breast, Left, LEFT BREAST TISSUE ? 04/17/2022 2:52 PM EDT [facility] Clinical Information Pre-op diagnosis: required absence of breast and nipple c50.911 (R breast cancer) 04/17/2022 2:52 PM EDT [facility] Gross Description 1. Breast, Left. The specimen is received in formalin labeled with the patient's name, accession number and left breast tissue, consists of multiple irregular fragments of breast and skin tissue. The largest piece measures 7 x 4 1/2 x 1.6 cm. No suspicious lesions are seen. One section is submitted in cassette A. KAH/cm 04/17/2022 2:52 PM EDT [facility] Microscopic Description Tissue blocks are prepared and slides are examined microscopically on all specimens. See diagnosis for details. 04/17/2022 2:52 PM EDT [facility] Tissue Left breast structure / Unknown 04/13/2022 10:06 AM EDT 04/14/2022 7:05 AM EDT Comment:Pre-op diagnosis: required absence of breast and nipple c50.911 (R breast cancer) Sunday [place] MD LAB PATHOLOGY ORDER DIALLO Performing Organization Address City/[facility]/ZIP Co de Phone Number [facility] [address] [place] [address], [place] [phone] * (ABNORMAL) POCT glucose (04/13/2022 6:58 AM EDT) Glucose 141(H) 70 - 110 mg/dL 04/13/2022 7:16 AM EDT [facility] Comment:No Action Blood Capillary blood specimen / Unknown 04/13/2022 6:58 AM EDT 04/13/2022 7:16 AM EDT Sunday [place] MD LAB POINT OF CARE T EST DOCKED DEVICE UNSOLICITED RESULTS [facility] [address] [place] [address], [place] [phone] documented in this encounter Visit Diagnoses Diagnosis Acquired absence of breast and absent nipple, right Acquired absence of breast and nipple, right Acquired absence of breast and absent nipple, right Acquired absence of breast and nipple, right documented in this encounter Administered Medications Inactive Administered Medications - up to 3 most recent administrations Medication Order MAR Action Action Date Dose Rate Site EPINEPHrine (Adrenalin) 1 mg/10mL injection As needed, Starting on Nikki 04/13/22 at 0934, Intraprocedure Given 04/13/2022 9:34 AM EDT 0.5 mL fentaNYL (Sublimaze) injection 50 mcg 50 mcg, Intravenous, Every 5 min PRN, severe pain (8-10), Starting on Nikki 04/13/22 at 1133, For 2 doses, Recovery (only), If ordered IV, slowly push over 3-5 minutes. gentamicin (Garamycin) injection As needed, Starting on Nikki 04/13/22 at 0933, Intraprocedure Given 04/13/2022 9:33 AM EDT 80 mg HYDROmorphone PF (Dilaudid) injection 0.5 mg 0.5 mg, Intravenous, Every 5 min PRN, severe pain (8-10), Starting on Nikki 04/13/22 at 1133, For 4 doses, Recovery (only) HYDROmorphone PF (Dilaudid) injection 1 mg 1 mg, Intravenous, Every 3 hours PRN, severe pain (8-10), Starting on Nikki 04/13/22 at 1108, Recovery (only) Given 04/13/2022 12:01 PM EDT 1 mg lidocaine PF (Xylocaine) 0.5 % injection As needed, Starting on Nikki 04/13/22 at 0933, Intraprocedure Given 04/13/2022 9:33 AM EDT 50 mL mupirocin (Bactroban) 2 % ointment As needed, Starting on Nikki 04/13/22 at 1050, Intraprocedure Given 04/13/2022 10:50 AM EDT 1 application. ondansetron (Zofran) injection 4 mg 4 [...] irrigation solution As needed, Starting on Nikki 04/13/22 at 0932, Intraprocedure Given 04/13/2022 9:32 AM EDT 2,000 mL vancomycin (Vancocin) vial for injection As needed, Starting on Nikki 04/13/22 at 0932, Intraprocedure Given 04/13/2022 9:32 AM EDT 1 g documented in this encounter Active and Recently Administered Medications Times are shown in EDT. Scheduled Medication Order 04/11/2022 04/12/2022 04/13/2022 DAPTOmycin (Cubicin) 514.2 mg Syringe (COMPLETED) 514.2 mg (6 mg/kg ? 85.7 kg), Intravenous, Administer over 3 Minutes, Once in OR, Starting on Nikki 04/13/22 at 0643, For 1 dose, Preprocedure, Suspected Indication (Select all that apply): Surgical Prophylaxis 0841 (New Bag - Prov ider: Luda Browne, WELT TRIMMING MACHINE OPERATOR) scopolamine (Transderm-Scop) patch 1 patch 1 patch, [...] Preprocedure documented in this encounter Care Teams Pulpwood Contractor Relationship Specialty Start Date End Date Ricardo Contreras MD [address] [place] [address] PCP - General Jalil Marie MD [address] [place] [address] Consulting Physician Hematology 04/12/22 documented as of this encounter
--- OUTSIDE RECORDS SUMMARY | 2024-08-18 13:11 | XMS_ITS | Encounter Summary ---
Author Organization [facility] nter Address [address] [place], [place] [address] [place] [address] Care Team Providers Care Automobile Glass Technician Name Role Phone Ricardo Contreras MD Primary Care Provider + Jalil Marie MD Unavailable [phone] Encounter Details Date Type Department Care Team (Latest Contact Info) Description 04/19/2022 Travel Social History Tobacco Use Types Packs/Day [...] on filedocumented in this encounter Care Teams Automobile Glass Technician Relationship Specialty Start Date End Date Ricardo Contreras MD [address] [place] [address] PCP - General Jalil Marie MD [address] [place] [address] Consulting Physician Hematology 04/12/22 documented as of this encounter
--- OUTSIDE RECORDS SUMMARY | 2024-08-18 13:11 | XMS_ITS | Encounter Summary ---
Author Organization [facility] nter Address [address] [place], [place] [id number] [place] [address] Care Team Providers Care Sba Business Development Officer Name Role Phone Ricardo Contreras MD Primary Care Provider + Encounter Details Date Type Department Care Team (Latest Contact Info) Description 04/06/2022 Travel Social History Tobacco Use Types Packs/Day [...] on filedocumented in this encounter Care Teams Sba Business Development Officer Relationship Specialty Start Date End Date Ricardo Contreras MD [address] [place] [address] PCP - General documented as of this encounter
--- OUTSIDE RECORDS SUMMARY | 2024-08-18 13:12 | XMS_ITS | Encounter Summary ---
Author Organization [facility] Ce nter Address [address] [place] [address] [place] [address] Care Team Providers Care Medicare Insurance Specialist Name Role Phone Ricardo Contreras MD Primary Care Provider + Encounter Details Date Type Department Care Team (Latest Contact Info) Description 03/01/2022 8:41 AM EDT - 03/01/2022 11:59 PM EDT Hospital Encounter [facility] [address] [place] [phone] Other intervertebral disc degeneration, lumbar region Discharge [...] suspected to have Coronavirus/COVID-19? No / Unsure 03/01/2022 8:41 AM EDT documented as of this encounter Medications at Time of Discharge Medication Sig Dispensed Refills Start Date End Date ergocalciferol (Vitamin D2) 1.25 MG (55874 UT) capsule 1 capsule (50,000 Units) 1 (one) time per week. 01/18/2022 hydrOXYzine HCl (Atarax) 25 MG tablet Take 1 tablet (25 mg) by mouth if needed in the morning and at bedtime. May take morning of procedure 01/18/2022 loratadine (Claritin) 10 MG tablet Take 1 [...] the morning. Take morning of procedure 01/27/2022 amoxicillin (Amoxil) 875 MG tablet Take 875 [...] morning. Hold morning of procedure 02/07/2022 10/18/2022 documented as of this encounter Plan of Treatment Not on file documented as of this encounter Procedures Procedure Name Priority Date/Time Associated Diagnosis Comments XR LUMBAR SPINE 2-3 VIEWS Routine 03/01/2022 8:51 AM EDT Other intervertebral disc degeneration, lumbar region documented in this encounter Results * XR lumbar spine 2 or 3 views (03/01/2022 8:51 AM EDT) Anatomical Region Laterality Modality Spine, L-spine Digital Radiogra phy 03/01/2022 8:51 AM EDT Impressions 03/01/2022 8:56 AM EDT Multilevel disc disease and facet arthropathy without radiographic evidence of acute lumbar spine fracture or acute malalignment. Report Sign Date: 03/01/2022 8:56 AM, Electronically Signed By: Roverto Rucker MD Narrative 03/01/2022 8:56 AM EDT PROCEDURE: XR LUMBAR SPINE 2-3 VIEWS: 03/01/2022 CLINICAL INFORMATION: disc degeneration lumbar region COMPARISON: 05/16/2020 Lumbar lordosis is maintained. No malalignment appreciated. Vertebral body heights are within normal limits. Multilevel disc disease and facet arthropathy. Soft tissues image normally. No appreciable foreign body. Procedure Note Roverto Rucker MD - 03/09/2022 PROCEDURE: XR LUMBAR SPINE 2-3 VIEWS: 03/01/2022 CLINICAL INFORMATION: disc degeneration lumbar region COMPARISON: 05/16/2020 Lumbar lordosis is maintained. No malalignment appreciated. Vertebral bodyheights are within normal limits. Multilevel disc disease and facetarthropathy. Soft tissues image normally. No appreciable foreign body. IMPRESSION: Multilevel disc disease and facet arthropathy without radiographicevidence of acute lumbar spine fracture or acute malalignment. Report Sign Date: 03/01/2022 8:56 AM, Electronically Signed By: Roverto Oconnor MD Vida Drake NP IMG XR PROCEDURES documented in this encounter Visit Diagnoses Diagnosis Other intervertebral disc degeneration, lumbar region documented in this encounter Care Teams Medicare Insurance Specialist Relationship Specialty Start Date End Date Ricardo Contreras MD [address] [place] [address] PCP - General documented as of this encounter
--- OUTSIDE RECORDS SUMMARY | 2024-08-18 13:12 | XMS_ITS | Encounter Summary ---
Author Organization [facility] Ce nter Address [address] [address] [place] [address] Care Team Providers Care Scalping Machine Operator Name Role Phone Ricardo Contreras MD Primary Care Provider + Encounter Details Date Type Department Care Team (Late st Contact Info) Description 09/22/2021 12:01 AM EST - 09/22/2021 11:59 PM EST Hospital Encounter [facility] [address] [address] Ricardo Contreras MD [address] [place] [address] Social History Tobacco Use Types Packs/Day Years Used Date Smoking Tobacco: Never Assessed Sex and Gender Information Value Date Recorded Sex Assigned at Female 2021 11:11 AM EST Gender Identity Female 2021 11:11 AM EST Sexual Orientation Straight 2021 11 :11 AM EST documented as of this encounter Medications at Time of Discharge Medication Sig Dispensed Refills Start Date End Date amoxicillin (Amoxil) 875 MG tablet Take 875 mg by mouth every 12 (twelve) hours. 05/06/2021 06/21/2022 Calcium 600+D 600-200 MG-UNIT tablet Take 1 tablet by mouth in the morning and at bedtime. 09/05/2021 04/10/2023 fluconazole (Diflucan) 150 MG tablet Take 150 mg by mouth in the morning. 07/17/2021 06/21/2022 documented as of this encounter Plan of Treatment Not on file documented as of this encounter Visit Diagnoses Not on filedocumented in this encounter Care Teams Scalping Machine Operator Relationship Specialty Start Date End Date Ricardo Contreras MD [address] [place] [phone] PCP - General documented as of this encounter
--- OUTSIDE RECORDS SUMMARY | 2024-08-18 13:12 | XMS_ITS | Encounter Summary ---
Author Organization [facility] nter Address [address] [place] [address] Care Team Providers Care Annealing Torch Operator Name Role Phone Ricardo Contreras MD Primary Care Provider + Reason for Referral * Hospital - Outpatient (Routine) - Canceled Specialty Diagnoses / Procedures Referred By Contac t Referred To Contact Gastroenterology Diagnoses Encounter for screening colonoscopy Procedures Colonoscopy NH COLONOSCOPY FLX DX W/COLLJ SPEC WHEN PFRMD NH COLONOSCOPY W/BIOPSY SINGLE/MULTIPLE NH COLSC FLX W/RMVL OF TUMOR POLYP LESION SNARE TQ NH COLORECTAL SCRN; HI RISK IND NH COLON CA SCRN NOT HI RSK IND Joe Brewster MD [address] [place] [address] Referral ID Status Reason Start Date Expiration Date V isits Requested Visits Authorized [id number] Canceled 1 1 Encounter Details Date Type Department Care Team (Late st Contact Info) Description 02/24/2022 Telephone [facility] [address] [place] [address] Sydnee Minor RN [address] [place] [address] Social History Tobacco Use Types Packs/Day Years Used Date Smoking Tobacco: Never Assessed Sex and Gender Information Value Date Recorded Sex Assigned at Female 2021 11:11 AM EST Gender Identity Female 2021 11:11 AM EST Sexual Orientation Straight 2021 11 :11 AM EST documented as of this encounter Miscellaneous Notes * Telephone Encounter - Sydnee Minor RN - 02/24/2022 9:28 AM EDT Catie rescheduled for her colonoscopy on 03/09/22. Prep instructions mailed. documented in this encounter Plan of Treatment Scheduled Orders Name Type Priority Associated Diagnoses Orde r Schedule Colonoscopy Endoscopy Routine Encounter for screening colonoscopy Expected: 03/09/2022, Expires: 02/24/2023 documented as of this encounter Visit Diagnoses Diagnosis Encounter for screening colonoscopy- Primary documented in this encounter Care Teams Annealing Torch Operator Relationship Specialty Start Date End Date Ricardo Contreras MD [address] [place] [phone] PCP - General documented as of this encounter
--- OUTSIDE RECORDS SUMMARY | 2024-08-18 13:12 | XMS_ITS | Encounter Summary ---
Author Organization [facility] Ce nter Address [address] [place] [address] [place] [address] Care Team Providers Care Mail Processor Name Role Phone Ricardo Contreras MD Primary Care Provider + Encounter Details Date Type Department Care Team (Latest Contact Info) Description 11/02/2021 12:01 AM EST - 11/02/2021 11:59 PM EST Hospital Encounter [facility] [address] [place] [address] Davy Hernandez MD [address] [place] [phone] Shortness of breath Discharge Disposition: Home or Self Care Social [...] Date/Time Associated Diagnosis Comments SCANNED CARDIOLOGY RESULT 11/02/2021 SCANNED CARDIOLOGY RESULT 11/02/2021 documented in this encounter Results * SCANNED CARDIOLOGY RESULT (11/02/2021) Narrative 11/02/2021 Ordered by an unspecified provider. Default Authenticator Peter ECG ORDERABLES * SCANNED CARDIOLOGY RESULT (11/02/2021) Narrative 11/02/2021 Ordered by an unspecified provider. Default Authenticator Peter ECG ORDERABLES documented in this encounter Visit Diagnoses Diagnosis Shortness of breath documented in this encounter Care Teams Mail Processor Relationship Specialty Start Date End Date Ricardo Contreras MD [address] [place] [address] PCP - General documented as of this encounter
--- OUTSIDE RECORDS SUMMARY | 2024-08-18 13:12 | XMS_ITS | Encounter Summary ---
Author Organization [facility] nter Address [address] [place], [place] [address] [place] [address] Care Team Providers Care Regional Planner Name Role Phone Ricardo Contreras MD Primary Care Provider + Encounter Details Date Type Department Care Team (Latest Contact Info) Description 07/01/2021 9:13 AM EDT - 07/01/2021 11:59 PM EDT Hospital Encounter [facility] [address] [place] [address] Gregory Forrest MD [address] [place] [phone] Encounter for breast reconstruction following mastectomy Discharge Disposition: Home or Self Care Social [...] mouth every 12 (twelve) hours. 05/06/2021 06/21/2022 documented as of this encounter Plan of Treatment Not on file documented as of this encounter Visit Diagnoses Diagnosis Encounter for breast reconstruction following mastectomy documented in this encounter Care Teams Regional Planner Relationship Specialty Start Date End Date Ricardo Contreras MD [address] [place] [phone] PCP - General documented as of this encounter
--- OUTSIDE RECORDS SUMMARY | 2024-08-18 13:12 | XMS_ITS | Encounter Summary ---
Author Organization [facility] nter Address [address] [place] [address] Care Team Providers Care Gardener Name Role Phone Ricardo Contreras MD Primary Care Provider + Encounter Details Date Type Department Care Team (Latest Contact Info) Description 07/01/2021 9:47 AM EDT - 07/01/2021 11:59 PM EDT Hospital Encounter [facility] [address] [place] [address] Gregory Forrest MD [address] [place] [phone] Encounter for preprocedural laboratory examination Discharge Disposition: Home or Self Care Social [...] Procedure Name Priority Date/Time Associated Diagnosis Comments GFR CALCULATED Routine 07/01/2021 9:54 AM EDT CBC WITH AUTO DIFFERENTIAL Routine 07/01/2021 9:54 AM EDT COMPREHENSIVE METABOLIC PANEL Routine 07/01/2021 9:54 AM EDT documented in this encounter Results * (ABNORMAL) GFR CALCULATED (07/01/2021 9:54 AM EDT) Pathologist [facility] eGFR 40.0(L) 60.0 - 200.0 ML/MIN 07/01/2021 11:37 AM EDT [facility] 07/01/2021 9:54 AM EDT 07/01/2021 9:54 AM EDT Gregory Forrest MD LAB CHG PERFORMABLE S Performing Organization Address City/State/[facility] Co de Phone Number [facility] [address] [place] [address], * (ABNORMAL) CBC auto differential (07/01/2021 9:54 AM EDT) [facility] Platelets 134 122 - 454 K/ul 07/01/2021 11:02 AM [facility] RBC 4.930 3.450 - 5.400 M/ul 07/01/2021 11:02 AM [facility] MCV 85.7 78.2 - 101.8 fl 07/01/2021 11:02 AM [facility] MCH 28.7 26.4 - 33.3 pg 07/01/2021 11:02 AM [facility] MCHC 33.4 32.5 - 35.3 g/dL 07/01/2021 11:02 AM [facility] RDW 13.6 10.1 - 16.2 % 07/01/2021 11:02 AM [facility] MPV 8.8 6.4 - 10.4 fl 07/01/2021 11:02 AM [facility] Neutrophils % 45.7 43.0 - 83.0 % 07/01/2021 11:02 AM [facility] Neutrophils Absolute 3.7 2.7 - 6.9 K/ul 07/01/2021 11:02 AM [facility] Auto WBC 8.20 3.00 - 11.30 K/ul 07/01/2021 11:02 AM [facility] nRBC 0.10 07/01/2021 11:02 AM [facility] Basophils % 0.8 0.0 - 2.0 % 07/01/2021 11:02 AM [facility] Basophils Absolute 0.1 0.0 - 0.2 K/ul 07/01/2021 11:02 AM [facility] Eosinophils % 1.9 0.0 - 9.0 % 07/01/2021 11:02 AM [facility] Eosinophils Absolute 0.2 0.0 - 0.9 K/ul 07/01/2021 11:02 AM [facility] Lymphocytes % 45.4(H) 10.0 - 42.0 % 07/01/2021 11:02 AM [facility] Lymphocytes Absolute 3.7 0.4 - 3.9 K/ul 07/01/2021 11:02 AM [facility] Monocytes % 6.2 1.0 - 14.0 % 07/01/2021 11:02 AM [facility] Monocytes Absolute 0.5 0.2 - 0.6 K/ul 07/01/2021 11:02 AM [facility] Hematocrit 42.3 29.9 - 45.5 % 07/01/2021 11:02 AM [facility] Hemoglobin 14.1 10.0 - 16.0 gm/dl 07/01/2021 11:02 AM [facility] 07/01/2021 9:54 AM EDT 07/01/2021 10:47 AM EDT Gregory Forrest MD LAB BLOOD ORDERABLE S [facility] [address] [place] [address], * (ABNORMAL) Comprehensive metabolic panel (07/01/2021 9:54 AM [facility]) Globulin, Total 4.0 2.4 - 4.8 g/dL 07/01/2021 11:37 AM [facility] A/G Ratio 0.8 0.6 - 1.6 07/01/2021 11:37 AM [facility] Calcium 9.4 8.5 - 10.1 mg/dL 07/01/2021 11:37 AM [facility] Chloride 107 98 - 107 mmol/L 07/01/2021 11:37 AM [facility] CO2 24 21 - 32 mmol/L 07/01/2021 11:37 AM [facility] Creatinine 1.40(H) 0.60 - 1.30 MG/DL 07/01/2021 11:37 AM [facility] Potassium 4.4 3.6 - 5.2 mmol/L 07/01/2021 11:37 AM [facility] Sodium 137 133 - 144 mmol/L 07/01/2021 11:37 AM [facility] Albumin 3.2(L) 3.4 - 5.0 g/dL 07/01/2021 11:37 AM [facility] Alkaline Phosphatase 98 45 - 117 U/L 07/01/2021 11:37 AM [facility] Total Bilirubin 0.31 0.00 - 1.00 MG/DL 07/01/2021 11:37 AM [facility] ALT (SGPT) 24 12 - 78 U/L 07/01/2021 11:37 AM [facility] Total Protein 7.2 6.4 - 8.4 g/dL 07/01/2021 11:37 AM [facility] AST 20 15 - 37 U/L 07/01/2021 11:37 AM [facility] BUN 19(H) 7 - 18 MG/DL 07/01/2021 11:37 AM [facility] Glucose 238(H) 70 - 110 MG/DL 07/01/2021 11:37 AM EDT [facility] 07/01/2021 9:54 AM EDT 07/01/2021 10:47 AM EDT Gregory Forrest MD LAB BLOOD ORDERABLE S Performing Organization Address City/State/[facility] Co de Phone Number [facility] [address] [place] [address], documented in this encounter Visit Diagnoses Diagnosis Encounter for preprocedural laboratory examination documented in this encounter Care Teams Gardener Relationship Specialty Start Date End Date Ricardo Contreras MD [address] [place] [address] PCP - General documented as of this encounter
--- OUTSIDE RECORDS SUMMARY | 2024-08-18 13:12 | XMS_ITS | Encounter Summary ---
Author Organization [facility] nter Address [address] [place] [address] Care Team Providers Care Supervisor Production Managing Name Role Phone Ricardo Contreras MD Primary Care Provider + Reason for Visit * Reason Comments Follow-up Breast reconstructio n Encounter Details Date Type Department Care Team (Late st Contact Info) Description 03/29/2022 2:15 PM EDT Office Visit [facility] [address] [place] [phone] Gregory Forrest MD [address] [place] [phone] Ptosis of left breast (Primary Dx); Acquired absence of breast and absent nipple, right Social History Tobacco Use Types Packs/Day Years [...] suspected to have Coronavirus/COVID-19? No / Unsure 03/29/2022 1:53 PM EDT documented as of this encounter Progress Notes * Gregory Forrest MD - 03/29/2022 2:15 PM EDT Subjective : Patient ID: Catie Martinez is a 51 y.o. female. History of Present Illness: Pt scheduled for delayed rt breast reconstruction and left mastopexy. Objective : Physical Exam Constitutional She appears well-developed and well-nourished. Pulmonary/Chest Effort normal. Skin Skin is warm. Psychiatric She has a normal mood and affect. Her behavior is normal. Assessment/Plan : 1. Ptosis of left breast 2. Acquired absence of breast and absent nipple, right - Albumin; Future Pt had low albumin Sep 2021. Will repeat today and return to clinic tomorrow if normal to complete scheduling. documented in this encounter Plan of Treatment Not on file documented as of this encounter Results * Albumin (03/29/2022 2:46 PM EDT) Albumin 3.7 3.4 - 5.0 g/dL 03/29/2022 4:00 PM EDT [facility] Blood Venous blood specimen / Unknown Venipuncture / Unknown 03/29/2022 2:46 PM EDT 03/29/2022 2:46 PM EDT Gregory Forrest MD LAB BLOOD ORDERABLE S [facility] [address] [place] [address], documented in this encounter Visit Diagnoses Diagnosis Ptosis of left breast- Primary Acquired absence of breast and absent nipple, right documented in this encounter Care Teams Supervisor Production Managing Relationship Specialty Start Date End Date Ricardo Contreras MD [address] [place] [address] PCP - General documented as of this encounter
--- OUTSIDE RECORDS SUMMARY | 2024-08-18 13:12 | XMS_ITS | Encounter Summary ---
Author Organization [facility] Ce nter Address [address] [place] [address] Care Team Providers Care Assistant Facility Manager Name Role Phone Ricardo Contreras MD Primary Care Provider + Encounter Details Date Type Department Care Team (Latest Contact Info) Description 10/17/2021 11:37 AM EST - 10/17/2021 11:59 PM EST Hospital Encounter [facility] [address] [place] [address] Gregory Forrest MD [address] [place] [phone] Encounter for other specified surgical aftercare Discharge Disposition: Home or Self Care Social [...] this encounter Visit Diagnoses Diagnosis Encounter for other specified surgical aftercare documented in this encounter Care Teams Assistant Facility Manager Relationship Specialty Start Date End Date Ricardo Contreras MD [address] [place] [address] PCP - General documented as of this encounter
--- OUTSIDE RECORDS SUMMARY | 2024-08-18 13:12 | XMS_ITS | Encounter Summary ---
Author Organization [facility] Ce nter Address [address] [place] [address] Care Team Providers Care Screening Nurse Name Role Phone Ricardo Contreras MD Primary Care Provider + Encounter Details Date Type Department Care Team (Latest Contact Info) Description 10/12/2021 9:48 AM EST - 10/12/2021 11:59 PM EST Hospital Encounter [facility] [address] [place] [address] Gregory Forrest MD [address] [place] [phone] Encounter for other specified surgical aftercare Discharge [...] aftercare documented in this encounter Care Teams Screening Nurse Relationship Specialty Start Date End Date Ricardo Contreras MD [address] [place] [address] PCP - General documented as of this encounter
--- OUTSIDE RECORDS SUMMARY | 2024-08-18 13:12 | XMS_ITS | Encounter Summary ---
Author Organization [facility] Ce nter Address [address] [place] [address] Care Team Providers Care [place]keag Operator Name Role Phone Ricardo Contreras MD Primary Care Provider + Encounter Details Date Type Department Care Team (Latest Contact Info) Description 01/12/2022 2:29 PM EDT - 01/12/2022 11:59 PM EDT Hospital Encounter [facility] [address] [place] [address] Gregory Forrest MD [address] [place] [phone] Encounter for breast reconstruction following mastectomy Discharge [...] Sig Dispensed Refills Start Date End Date loratadine (Claritin) 10 MG tablet Take 1 tablet (10 mg) by mouth with evening meal. Take night before procedure 12/21/2021 amoxicillin (Amoxil) 875 MG tablet Take 875 mg by mouth every 12 (twelve) hours. 05/06/2021 06/21/2022 benzonatate (Tessalon) 100 MG capsule TAKE [...] Diagnosis Comments CBC WITH AUTO DIFFERENTIAL Routine 01/12/2022 2:35 PM EDT PREALBUMIN Routine 01/12/2022 2:35 PM EDT documented in this encounter Results * CBC auto differential (01/12/2022 2:35 PM EDT) Platelets 191 122 - 454 K/ul 01/12/2022 4:02 PM [facility] RBC 4.590 3.450 - 5.400 M/ul 01/12/2022 4:02 PM [facility] MCV 86.3 78.2 - 101.8 fl 01/12/2022 4:02 PM [facility] MCH 28.8 26.4 - 33.3 pg 01/12/2022 4:02 PM [facility] MCHC 33.4 32.5 - 35.3 g/dL 01/12/2022 4:02 PM [facility] RDW 13.0 10.1 - 16.2 % 01/12/2022 4:02 PM [facility] MPV 9.0 6.4 - 10.4 fl 01/12/2022 4:02 PM [facility] Neutrophils % 60.7 43.0 - 83.0 % 01/12/2022 4:02 PM [facility] Neutrophils Absolute 5.5 2.7 - 6.9 K/ul 01/12/2022 4:02 PM [facility] Auto WBC 9.10 3.00 - 11.30 K/ul 01/12/2022 4:02 PM [facility] nRBC 0.00 01/12/2022 4:02 PM [facility] Basophils % 0.6 0.0 - 2.0 % 01/12/2022 4:02 PM [facility] Basophils Absolute 0.1 0.0 - 0.2 K/ul 01/12/2022 4:02 PM [facility] Eosinophils % 1.8 0.0 - 9.0 % 01/12/2022 4:02 PM [facility] Eosinophils Absolute 0.2 0.0 - 0.9 K/ul 01/12/2022 4:02 PM [facility] Lymphocytes % 31.5 10.0 - 42.0 % 01/12/2022 4:02 PM [facility] Lymphocytes Absolute 2.9 0.4 - 3.9 K/ul 01/12/2022 4:02 PM [facility] Monocytes % 5.4 1.0 - 14.0 % 01/12/2022 4:02 PM [facility] Monocytes Absolute 0.5 0.2 - 0.6 K/ul 01/12/2022 4:02 PM [facility] Hematocrit 39.6 29.9 - 45.5 % 01/12/2022 4:02 PM [facility] Hemoglobin 13.2 10.0 - 16.0 gm/dl 01/12/2022 4:02 PM [facility] 01/12/2022 2:35 PM EDT 01/12/2022 3:47 PM EDT Gregory Forrest MD LAB BLOOD ORDERABLE S [facility] [address] [place] [address], * Prealbumin (01/12/2022 2:35 PM EDT) Prealbumin 24.3 20.0 - 40.0 MG/DL 01/12/2022 4:20 PM EDT [facility] 01/12/2022 2:35 PM EDT 01/12/2022 3:48 PM EDT Gregory Forrest MD LAB BLOOD ORDERABLE S [facility] [address] [place] [address], documented in this encounter Visit Diagnoses Diagnosis Encounter for breast reconstruction following mastectomy documented in this encounter Care Teams [place]keag Operator Relationship Specialty Start Date End Date Ricardo Contreras MD [address] [place] [address] PCP - General documented as of this encounter
--- OUTSIDE RECORDS SUMMARY | 2024-08-18 13:12 | XMS_ITS | Encounter Summary ---
Author Organization [facility] nter Address [address] [place], [place] [id number] [place] [address] Care Team Providers Care Quartz Mounter Name Role Phone Ricardo Contreras MD Primary Care Provider + Encounter Details Date Type Department Care Team (Latest Contact Info) Description 10/11/2021 6:25 AM EST - 10/11/2021 11:59 PM EST Hospital Encounter [facility] CONVERSION OUTPATIENT [address] [place] [address] Gregory Forrest MD [address] [place] [phone] Encounter for breast reconstruction following mastectomy; Essential (primary) hypertension; Hyperlipidemia, unspecified; Gastro-esophageal reflux disease without esophagitis; Type 2 diabetes mellitus without complications (CMS/HCC) (HCC); Anemia, unspecified; Obesity, unspecified; Personal history of nicotine dependence; Personal history of malignant neoplasm of breast; Other group home (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; intermediate manager (current) use of non-steroidal anti-inflammatories (nsaid); Body mass index (BMI) 40.0-44.9, adult; intermediate manager (current) use of oral hypoglycemic drugs Discharge Disposition: Home or Self Care Social [...] Associated Diagnosis Comments POCT GLUCOSE PERFORMABLE Routine 10/11/2021 6:44 AM EST documented in this encounter Results * (ABNORMAL) POCT glucose meter (10/11/2021 6:44 AM EST) Glucose 187(H) 70 - 110 MG/DL 10/11/2021 6:44 AM EST [facility] 10/11/2021 6:44 AM EST 10/11/2021 7:02 AM EST Gregory Forrest MD LAB POINT OF CARE T EST DOCKED DEVICE UNSOLICITED RESULTS [facility] [address] [place] [address], documented in this encounter Visit Diagnoses Diagnosis Encounter for breast reconstruction following mastectomy Essential (primary) hypertension Unspecified essential hypertension Hyperlipidemia, unspecified Gastro-esophageal reflux disease without esophagitis Type 2 diabetes mellitus without complications Anemia, unspecified Obesity, unspecified Personal history of nicotine dependence Personal history of malignant neoplasm of breast Other group home (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 intermediate manager (current) use of non-steroidal anti-inflammatories (nsaid) Body mass index (BMI) 40.0-44.9, adult intermediate manager (current) use of oral hypoglycemic drugs documented in this encounter Care Teams Quartz Mounter Relationship Specialty Start Date End Date Ricardo Contreras MD [address] [phone] PCP - General documented as of this encounter
--- OUTSIDE RECORDS SUMMARY | 2024-08-18 13:12 | XMS_ITS | Encounter Summary ---
Author Organization [facility] nter Address [address] [place] [address] [place] [address] Care Team Providers Care Advance Seal Delivery System Maintainer Name Role Phone Ricardo Contreras MD Primary Care Provider + Encounter Details Date Type Department Care Team (Latest Contact Info) Description 03/29/2022 2:39 PM EDT - 03/29/2022 11:59 PM EDT Hospital Encounter [facility] - GENERAL DIAGNOSTIC BLDG D [address] [place] [phone] Acquired absence of breast and absent nipple, right Discharge Disposition: Home or Self [...] surgery 03/16/2022 ergocalciferol (Vitamin D2) 1.25 MG (16865 UT) capsule 1 capsule (50,000 Units) 1 [...] with food- hold morning of procedure 03/16/2022 amitriptyline (Elavil) 100 MG tablet Take 1 [...] Procedure Name Priority Date/Time Associated Diagnosis Comments ALBUMIN Routine 03/29/2022 2:46 PM EDT Acquired absence of breast and absent nipple, right documented in this encounter Results * Albumin (03/29/2022 2:46 PM EDT) Albumin 3.7 3.4 - 5.0 g/dL 03/29/2022 4:00 PM EDT [facility] Blood Venous blood specimen / Unknown Venipuncture / Unknown 03/29/2022 2:46 PM EDT 03/29/2022 2:46 PM EDT Gregory Forrest MD LAB BLOOD ORDERABLE S [facility] [address] [place] [address], documented in this encounter Visit Diagnoses Diagnosis Acquired absence of breast and absent nipple, right documented in this encounter Care Teams Advance Seal Delivery System Maintainer Relationship Specialty Start Date End Date Ricardo Contreras MD [address] [phone] PCP - General documented as of this encounter
--- OUTSIDE RECORDS SUMMARY | 2024-08-18 13:12 | XMS_ITS | Encounter Summary ---
Author Organization [facility] nter Address [address] [place] [address] Care Team Providers Care Sample Steamer Name Role Phone Ricardo Contreras MD Primary Care Provider + Encounter Details Date Type Department Care Team (Latest Contact Info) Description 11/30/2021 9:17 AM EDT - 11/30/2021 11:59 PM EDT Hospital Encounter [facility] CONVERSION OUTPATIENT [address] [place] [address] Gregory Forrest MD [address] [place] [phone] Discharge Disposition: Home or Self Care Social [...] on filedocumented in this encounter Care Teams Sample Steamer Relationship Specialty Start Date End Date Ricardo Contreras MD [address] [place] [address] PCP - General documented as of this encounter
--- OUTSIDE RECORDS SUMMARY | 2024-08-18 13:12 | XMS_ITS | Encounter Summary ---
Author Organization [facility] nter Address [address] [place] [address] [place] [address] Care Team Providers Care Raw Products Director Name Role Phone Ricardo Contreras MD Primary Care Provider + Encounter Details Date Type Department Care Team (Latest Contact Info) Description 12/05/2021 12:01 AM EDT - 12/05/2021 11:59 PM EDT Hospital Encounter [facility] CONVERSION OUTPATIENT [address] [place] [address] Ricrado Contreras MD [address] [place] [address] Solitary pulmonary nodule [facility] Social History Tobacco Use Types Packs/Day Years [...] as of this encounter Visit Diagnoses Diagnosis Solitary pulmonary nodule documented in this encounter Care Teams Raw Products Director Relationship Specialty Start Date End Date Ricardo Contreras MD [address] [phone] PCP - General documented as of this encounter
--- OUTSIDE RECORDS SUMMARY | 2024-08-18 13:12 | XMS_ITS | Encounter Summary ---
Author Organization [facility] nter Address [address] [place] [address] [place] [address] Care Team Providers Care Aluminum Sheet Cutter Name Role Phone Ricardo Contreras MD Primary Care Provider + Encounter Details Date Type Department Care Team (Latest Contact Info) Description 12/29/2021 12:01 AM EDT - 12/29/2021 11:59 PM EDT Hospital Encounter [facility] CONVERSION OUTPATIENT [address] [place] [address] Ricardo Contreras MD [address] [place] [address] Localized enlarged lymph nodes Discharge Disposition: Home or Self Care Social [...] Diagnosis Comments CT SOFT TISSUE NECK W AND WO IV CONTRAST Routine 12/29/2021 2:00 PM EDT documented in this encounter Results * CT soft tissue neck w and wo IV contrast (12/29/2021 2:00 PM EDT) Anatomical Region Laterality Modality Head, Neck Computed Tomogra phy 12/29/2021 2:00 PM EDT Narrative 12/29/2021 5:39 PM EDT PROCEDURE: CT NECK SOFT TISSUE W+W/O CONT: 12/29/2021 Radiation Optimization: All CT scans at this facility use at least one of these dose optimization techniques: automated exposure control; mA and/or kV adjustment per patient size (includes targeted exams where dose is matched to clinical indication); or iterative reconstruction. CLINICAL INFORMATION: enlarged lymph nodes COMPARISON: 12/11/2018 No discrete mass in the oropharynx. The epiglottis and aryepiglottic folds are normal in appearance. The thyroid cartilage and cricoid cartilage image normally. The thyroid gland is homogeneously enhancing. There is redemonstration of soft tissue nodule in the left parotid gland now measuring 1.9 x 0.8 cm, decreased in size compared to prior. A 7 mm nodule in the right parotid gland measures 6 mm, previously 7. ??Borderline enlarged right level 2A lymph node measuring 1 cm decrease in size compared to prior. The included portion of the posterior fossa is unremarkable. ??Included lung apices are clear. Degenerative changes of the spine with spinal fusion of C4-C5 and multiple large anterior osteophytes. Impression: There is redemonstration of left parotid lesion in the region of marker which is decreased in size compared to prior now measuring 1.9 x 0.8 cm. Right level 2A lymph node is borderline enlarged however decreased in size compared to prior. ??The remainder of the cervical lymph nodes are not technically enlarged by CT criteria. Other chronic findings as described above. Report Sign Date: 12/29/2021 5:37 PM, Electronically Signed By: ??Moises Cardenas MD Procedure Note Moises Cardenas MD - 01/02/2022 PROCEDURE: CT NECK SOFT TISSUE W+W/O CONT: 12/29/2021 Radiation Optimization: All CT scans at this facility use at least one ofthese dose optimization techniques: automated exposure control; mA and/orkV adjustment per patient size (includes targeted exams where dose ismatched to clinical indication); or iterative reconstruction. CLINICAL INFORMATION: enlarged lymph nodes COMPARISON: 12/11/2018 No discrete mass in the oropharynx. The epiglottis and aryepiglotticfolds are normal in appearance. The thyroid cartilage and cricoidcartilage image normally. The thyroid gland is homogeneously enhancing.There is redemonstration of soft tissue nodule in the left parotid glandnow measuring 1.9 x 0.8 cm, decreased in size compared to prior. A 7 mmnodule in the right parotid gland measures 6 mm, previously 7. Borderlineenlarged right level 2A lymph node measuring 1 cm decrease in sizecompared to prior. The included portion of the posterior fossa is unremarkable. Included lung apices are clear. Degenerative changes of the spine withspinal fusion of C4-C5 and multiple large anterior osteophytes. Impression: There is redemonstration of left parotid lesion in the region of markerwhich is decreased in size compared to prior now measuring 1.9 x 0.8 cm.Right level 2A lymph node is borderline enlarged however decreased in sizecompared to prior. The remainder of the cervical lymph nodes are not technically enlargedby CT criteria. Other chronic findings as described above. Report Sign Date: 12/29/2021 5:37 PM, Electronically Signed By: Moises Cardenas MD Ricardo Contreras MD IMG CT PROCEDURE S documented in this encounter Visit Diagnoses Diagnosis Localized enlarged lymph nodes documented in this encounter Care Teams Aluminum Sheet Cutter Relationship Specialty Start Date End Date Ricardo Contreras MD [address] [phone] PCP - General documented as of this encounter
--- OUTSIDE RECORDS SUMMARY | 2024-08-18 13:12 | XMS_ITS | Encounter Summary ---
Author Organization [facility] nter Address [address] [place], [place] [address] [place], [place] [id number] Care Team Providers Care Packaging Design Engineer Name Role Phone Ricardo Contreras MD Primary Care Provider + Encounter Details Date Type Department Care Team (Latest Contact Info) Description 11/21/2021 12:01 AM EDT - 11/21/2021 11:59 PM EDT Hospital Encounter [facility] CONVERSION OUTPATIENT [address] [place] [phone] [place] [address] [place] [address] Ricardo Contreras MD [address] [place] [address] Encounter for screening mammogram for malignant neoplasm of breast Social History Tobacco Use Types Packs/Day [...] Date/Time Associated Diagnosis Comments BI MAMMOGRAM DIAGNOSTIC TOMOSYNTHESIS LEFT Routine 11/21/2021 8:02 AM EDT BI MAMMOGRAM DIAGNOSTIC LEFT Routine 11/21/2021 8:02 AM EDT documented in this encounter Results * BI Diagnostic mammogram with tomosynthesis left (11/21/2021 8:02 AM EDT) Anatomical Region Laterality Modality Breast Left Mammography 11/21/2021 8:02 AM EDT Narrative 11/21/2021 8:24 AM EDT PROCEDURE: MA MAMMO DIAG LT W/JORGE A: 11/21/2021 CLINICAL INFORMATION: malignat neoplasm Interpretation was made with the benefit of CAD and ??Tomosynthesis. COMPARISON: 05/14/2020, 04/08/2020 BREAST DENSITY: The breast tissue is heterogeneously dense. ??This may lower the sensitivity of mammography. FINDINGS: Prior right mastectomy. There is no evidence of suspicious calcification, dominant mass, or architectural distortion. Skin thickness nipple shadows are normal in appearance. Benign appearing calcifications. No spot compression or magnification views were performed as no focal abnormalities are identified. Impression: No mammographic evidence of malignancy. BIRADS: BIRADS 2. Benign. RECOMMENDATION: Left breast screening mammogram in 1 year. Your x-ray mammogram shows that your breast tissue is dense. ?Dense breast tissue is common among women and is not abnormal. ?However, women with dense breast tissue may have a slightly increased risk for developing beast cancer. ??Dense breast tissue may also make it more difficult to detect an early breast cancer on your x-ray mammogram. ??At this time, there are not specific recommendations for additional screening or other measures related to having dense breast tissue. ??However, you may want to talk to your doctor about other ways that you might be able to reduce your risk or breast cancer. ??A report of your results was sent to your ordering physician. ?? Negative mammography should not preclude biopsy of [...] new physician and/or supplier. Report Sign Date: 11/21/2021 8:22 AM, Electronically Signed By: ??Roverto Rucker MD Procedure Note Roverto Rucker MD - 11/25/2021 PROCEDURE: MA MAMMO DIAG LT W/JORGE A: 11/21/2021 CLINICAL INFORMATION: malignat neoplasm Interpretation was made with the benefit of CAD and Tomosynthesis. COMPARISON: 05/14/2020, 04/08/2020 BREAST DENSITY: The breast tissue is heterogeneously dense. This maylower the sensitivity of mammography. FINDINGS: Prior right mastectomy. There is no evidence of suspiciouscalcification, dominant mass, or architectural distortion. Skin thicknessnipple shadows are normal in appearance. Benign appearing calcifications.No spot compression or magnification views were performed as no focalabnormalities are identified. Impression: No mammographic evidence of malignancy. BIRADS: BIRADS 2. Benign. RECOMMENDATION: Left breast screening mammogram in 1 year. Your x-ray mammogram shows that your breast tissue is dense. Dense breast tissue is common among women and is not abnormal. However, women with dense breast tissue may have a slightly increasedrisk for developing beast cancer. Dense breast tissue may also make itmore difficult to detect an early breast cancer on your x-ray mammogram.At this time, there are not specific recommendations for additionalscreening or other measures related to having dense breast tissue.However, you may want to talk to your doctor about other ways that youmight be able to reduce your risk or breast cancer. A report of yourresults was sent to your ordering physician. Negative mammography should not preclude biopsy of any clinicallysuspicious palpable lesions, which should be managed on clinical grounds,since 10% to 15% of malignancies are not mammographically visible and therate is higher in patients with mammographically dense breast tissues. Theresults of your patient's mammogram will be forwarded by mail. It is theresponsibility of the patient to provide the date and/or location of anyprevious mammograms to any new physician and/or supplier. Report Sign Date: 11/21/2021 8:22 AM, Electronically Signed By: Roverto Rucker MD Clara Holbrook L[place]I IMG BI PROCEDURES * BI Diagnostic mammogram left (11/21/2021 8:02 AM EDT) Anatomical Region Laterality Modality Breast Left Mammography 11/21/2021 8:02 AM EDT Narrative 11/21/2021 8:24 AM EDT PROCEDURE: MA MAMMO DIAG LT W/JORGE A: 11/21/2021 CLINICAL INFORMATION: malignat neoplasm Interpretation was made with the benefit of CAD and ??Tomosynthesis. COMPARISON: 05/14/2020, 04/08/2020 BREAST DENSITY: The breast tissue is heterogeneously dense. ??This may lower the sensitivity of mammography. FINDINGS: Prior right mastectomy. There is no evidence of suspicious calcification, dominant mass, or architectural distortion. Skin thickness nipple shadows are normal in appearance. Benign appearing calcifications. No spot compression or magnification views were performed as no focal abnormalities are identified. Impression: No mammographic evidence of malignancy. BIRADS: BIRADS 2. Benign. RECOMMENDATION: Left breast screening mammogram in 1 year. Your x-ray mammogram shows that your breast tissue is dense. ?Dense breast tissue is common among women and is not abnormal. ?However, women with dense breast tissue may have a slightly increased risk for developing beast cancer. ??Dense breast tissue may also make it more difficult to detect an early breast cancer on your x-ray mammogram. ??At this time, there are not specific recommendations for additional screening or other measures related to having dense breast tissue. ??However, you may want to talk to your doctor about other ways that you might be able to reduce your risk or breast cancer. ??A report of your results was sent to your ordering physician. ?? Negative mammography should not preclude biopsy of [...] new physician and/or supplier. Report Sign Date: 11/21/2021 8:22 AM, Electronically Signed By: ??Roverto Rucker MD Procedure Note Roverto Rucker MD - 11/25/2021 PROCEDURE: MA MAMMO DIAG LT W/JORGE A: 11/21/2021 CLINICAL INFORMATION: malignat neoplasm Interpretation was made with the benefit of CAD and Tomosynthesis. COMPARISON: 05/14/2020, 04/08/2020 BREAST DENSITY: The breast tissue is heterogeneously dense. This maylower the sensitivity of mammography. FINDINGS: Prior right mastectomy. There is no evidence of suspiciouscalcification, dominant mass, or architectural distortion. Skin thicknessnipple shadows are normal in appearance. Benign appearing calcifications.No spot compression or magnification views were performed as no focalabnormalities are identified. Impression: No mammographic evidence of malignancy. BIRADS: BIRADS 2. Benign. RECOMMENDATION: Left breast screening mammogram in 1 year. Your x-ray mammogram shows that your breast tissue is dense. Dense breast tissue is common among women and is not abnormal. However, women with dense breast tissue may have a slightly increasedrisk for developing beast cancer. Dense breast tissue may also make itmore difficult to detect an early breast cancer on your x-ray mammogram.At this time, there are not specific recommendations for additionalscreening or other measures related to having dense breast tissue.However, you may want to talk to your doctor about other ways that youmight be able to reduce your risk or breast cancer. A report of yourresults was sent to your ordering physician. Negative mammography should not preclude biopsy of any clinicallysuspicious palpable lesions, which should be managed on clinical grounds,since 10% to 15% of malignancies are not mammographically visible and therate is higher in patients with mammographically dense breast tissues. Theresults of your patient's mammogram will be forwarded by mail. It is theresponsibility of the patient to provide the date and/or location of anyprevious mammograms to any new physician and/or supplier. Report Sign Date: 11/21/2021 8:22 AM, Electronically Signed By: Roverto Rucker MD Clara Holbrook APRN IMG BI PROCEDURES documented in this encounter Visit Diagnoses Diagnosis Encounter for screening mammogram for malignant neoplasm of breast documented in this encounter Care Teams Packaging Design Engineer Relationship Specialty Start Date End Date Ricardo Contreras MD [address] [phone] PCP - General documented as of this encounter
--- OUTSIDE RECORDS SUMMARY | 2024-08-18 13:12 | XMS_ITS | Encounter Summary ---
Author Organization [facility] nter Address [address] [place] [address] Care Team Providers Care Senior Pricing Analyst Name Role Phone Ricardo Contreras MD Primary Care Provider + Encounter Details Date Type Department Care Team (Latest Contact Info) Description 01/09/2022 2:36 PM EDT - 01/09/2022 11:59 PM EDT Hospital Encounter PMC CONVERSION OUTPATIENT [address] [place] [address] Gregory Forrest MD [address] [place] [phone] Discharge Disposition: Home or Self Care Social [...] on filedocumented in this encounter Care Teams Senior Pricing Analyst Relationship Specialty Start Date End Date Ricardo Contreras MD [address] [place] [address] [phone] PCP - General documented as of this encounter
--- OUTSIDE RECORDS SUMMARY | 2024-08-18 13:12 | XMS_ITS | Encounter Summary ---
Author Organization [facility] nter Address [address] [place], [place] [address] [place] [address] Care Team Providers Care Bindery Machine Setter/Set Up Operator Name Role Phone Ricardo Contreras MD Primary Care Provider + Encounter Details Date Type Department Care Team (Late st Contact Info) Description 03/17/2022 Telephone [facility] [address] Clinic [place] [phone] Irina Guerrero MA [address] [place] [phone] Social History Tobacco Use Types Packs/Day Years [...] AM EDT documented as of this encounter Miscellaneous Notes * Telephone Encounter - Irina Guerrero MA - 03/17/2022 9:30 AM EDT Attempted to contact pt regarding missed appt in February. Unable to reach on numbers provided. documented in this encounter Plan of Treatment Not on file documented as of this encounter Visit Diagnoses Not on filedocumented in this encounter Care Teams Bindery Machine Setter/Set Up Operator Relationship Specialty Start Date End Date Ricardo Contreras MD [address] [place] [phone] PCP - General documented as of this encounter
--- OUTSIDE RECORDS SUMMARY | 2024-08-18 13:12 | XMS_ITS | Encounter Summary ---
Author Organization [facility] nter Address [address] [place], [place] [phone] [place] [address] Care Team Providers Care Supervisor Network Control Operators Name Role Phone Ricardo Contreras MD Primary Care Provider + Encounter Details Date Type Department Care Team (Latest Contact Info) Description 10/05/2021 12:59 PM EST - 10/05/2021 11:59 PM EST Hospital Encounter PMC CONVERSION OUTPATIENT [address] [place] [address] Gregory Forrest MD [address] [place] [phone] Encounter for breast reconstruction following mastectomy Discharge [...] mastectomy documented in this encounter Care Teams Supervisor Network Control Operators Relationship Specialty Start Date End Date Ricardo Contreras MD [address] [place] [address] PCP - General documented as of this encounter
--- OUTSIDE RECORDS SUMMARY | 2024-08-18 13:12 | XMS_ITS | Encounter Summary ---
Author Organization [facility] nter Address [address] [place], [place] [address] [place], [place] [phone] Care Team Providers Care Lead Clinical Research Coordinator Name Role Phone Ricardo Contreras MD Primary Care Provider + Encounter Details Date Type Department Care Team (Late st Contact Info) Description 05/11/2021 12:06 AM EDT - 06/09/2021 11:59 PM EDT Hospital Encounter PMC CONVERSION OUTPATIENT [address] [place] [address] Barbie Jorgensen APRN [address] [place] [phone] Social History Tobacco Use Types Packs/Day Years [...] on filedocumented in this encounter Care Teams Lead Clinical Research Coordinator Relationship Specialty Start Date End Date Ricardo Contreras MD [address] [place] [address] PCP - General documented as of this encounter
--- OUTSIDE RECORDS SUMMARY | 2024-08-18 13:12 | XMS_ITS | Encounter Summary ---
Author Organization [facility] nter Address [address] [place], [place] [id number] [place], [place] [id number] Care Team Providers Care Dispatch Supervisor Name Role Phone Ricardo Contreras MD Primary Care Provider + Encounter Details Date Type Department Care Team (Latest Contact Info) Description 10/21/2021 12:01 AM EST - 10/21/2021 11:59 PM EST Hospital Encounter [facility] CONVERSION OUTPATIENT [address] [place] [address] Davy Hernandez MD [address] [place] [phone] Discharge Disposition: Home or Self Care Social [...] on filedocumented in this encounter Care Teams Dispatch Supervisor Relationship Specialty Start Date End Date Ricardo Contreras MD [address] [phone] PCP - General documented as of this encounter
--- OUTSIDE RECORDS SUMMARY | 2024-08-18 13:12 | XMS_ITS | Encounter Summary ---
Author Organization [facility] nter Address [address] [place] [id number] Care Team Providers Care Sanipractic Physician Name Role Phone Ricardo Contreras MD Primary Care Provider + Jalil Marie MD Unavailable Barbie Jorgensen ETL DATA ARCHITECT Unavailable [phone] Clara Holbrook ETL DATA ARCHITECT Unavailable Encounter Details Date Type Department Care Team (Late st Contact Info) Description 03/30/2022 Orders Only [facility] PLASTIC/RECONSTRUCTIVE SURGERY PRACTICE [address] [facility], [facility] [place] [address] Gregory Forrest MD [address] [place] [address] Acquired absence of breast and absent nipple, right; Malignant neoplasm of right female breast, unspecified estrogen receptor status, unspecified site of breast; Ptosis of left breast Social History Tobacco [...] Diagnosis Comments CBC WITH AUTO DIFFERENTIAL Routine 04/06/2022 1:19 PM EDT Acquired absence of breast and absent nipple, right COMPREHENSIVE METABOLIC PANEL Routine 04/06/2022 1:19 PM EDT Acquired absence of breast and absent nipple, right Ptosis of left breast documented in this encounter Results * (ABNORMAL) Comprehensive metabolic panel (04/06/2022 1:19 PM EDT) Sodium 139 133 - 144 mmol/L 04/06/2022 2:17 PM [facility] Potassium 4.0 3.6 - 5.2 mmol/L 04/06/2022 2:17 PM [facility] Chloride 109(H) 98 - 107 mmol/L 04/06/2022 2:17 PM [facility] CO2 26 21 - 32 mmol/L 04/06/2022 2:17 PM [facility] Anion Gap 4(L) 5 - 15 mmol/L 04/06/2022 2:17 PM [facility] BUN 14 7 - 18 mg/dL 04/06/2022 2:17 PM [facility] Creatinine 1.30(H) 0.55 - 1.02 mg/dL 04/06/2022 2:17 PM [facility] BUN/Creatinine Ratio 10.77 10.00 - 20.00 ratio 04/06/2022 2:17 PM [facility] Glucose 109 70 - 110 mg/dL 04/06/2022 2:17 PM [facility] Calcium 9.7 8.5 - 10.1 mg/dL 04/06/2022 2:17 PM [facility] AST 17 15 - 37 U/L 04/06/2022 2:17 PM [facility] ALT (SGPT) 23 13 - 56 U/L 04/06/2022 2:17 PM [facility] Alkaline Phosphatase 69 45 - 117 U/L 04/06/2022 2:17 PM EDT [facility] Total Protein 7.1 6.4 - 8.4 g/dL 04/06/2022 2:17 PM EDT [facility] Albumin 3.5 3.4 - 5.0 g/dL 04/06/2022 2:17 PM EDT [facility] Globulin, Total 3.6 2.4 - 4.8 g/dL 04/06/2022 2:17 PM EDT [facility] A/G Ratio 1.0 0.6 - 1.6 04/06/2022 2:17 PM EDT [facility] Total Bilirubin 0.3 0.0 - 1.0 mg/dL 04/06/2022 2:17 PM [facility] eGFR 48.3(L) >60.0 - 200.0 mL/min/1.7 3m*2 04/06/2022 2:17 PM EDT [facility] Blood Venous blood specimen / Unknown Venipuncture / Unknown 04/06/2022 1:19 PM EDT 04/06/2022 1:19 PM EDT Gregory Forrest MD LAB BLOOD ORDERABLE S [facility] [address] [place] [address], * CBC auto differential (04/06/2022 1:19 PM EDT) Auto WBC 7.7 3.0 - 11.3 10*3/uL LAB HEMATOLOGY METHOD 04/06/2022 1:58 PM EDT [facility] RBC 4.69 3.45 - 5.40 10*6/uL LAB HEMATOLOGY METHOD 04/06/2022 1:58 PM EDT [facility] Hemoglobin 13.5 10.0 - 16.0 g/dL LAB HEMATOLOGY METHOD 04/06/2022 1:58 PM EDT [facility] Hematocrit 40.0 29.9 - 45.5 % LAB HEMATOLOGY METHOD 04/06/2022 1:58 PM [facility] MCV 85.4 78.2 - 101.8 fL LAB HEMATOLOGY METHOD 04/06/2022 1:58 PM [facility] MCH 28.9 26.4 - 33.3 pg LAB HEMATOLOGY METHOD 04/06/2022 1:58 PM [facility] MCHC 33.8 32.5 - 35.3 g/dL LAB HEMATOLOGY METHOD 04/06/2022 1:58 PM [facility] RDW 13.4 10.1 - 16.2 % LAB HEMATOLOGY METHOD 04/06/2022 1:58 PM [facility] MPV 8.1 6.4 - 10.4 fL LAB HEMATOLOGY METHOD 04/06/2022 1:58 PM [facility] Neutrophils % 59 43 - 83 % LAB HEMATOLOGY METHOD 04/06/2022 1:58 PM [facility] Lymphocytes % 33 10 - 42 % LAB HEMATOLOGY METHOD 04/06/2022 1:58 PM [facility] Monocytes % 6 1 - 14 % LAB HEMATOLOGY METHOD 04/06/2022 1:58 PM [facility] Eosinophils % 2 0 - 11 % LAB HEMATOLOGY METHOD 04/06/2022 1:58 PM [facility] Basophils % 1 0 - 2 % LAB HEMATOLOGY METHOD 04/06/2022 1:58 PM [facility] Neutrophils Absolute 4.50 3.40 - 7.00 10*3/uL LAB HEMATOLOGY METHOD 04/06/2022 1:58 PM [facility] Lymphocytes Absolute 2.60 0.40 - 3.90 10*3/uL LAB HEMATOLOGY METHOD 04/06/2022 1:58 PM [facility] Monocytes Absolute 0.40 0.20 - 0.60 10*3/uL LAB HEMATOLOGY METHOD 04/06/2022 1:58 PM [facility] Eosinophils Absolute 0.20 0.00 - 0.90 10*3/uL LAB HEMATOLOGY METHOD 04/06/2022 1:58 PM [facility] Basophils Absolute 0.10 0.00 - 0.20 10*3/uL LAB HEMATOLOGY METHOD 04/06/2022 1:58 PM EDT [facility] Platelets 201 122 - 454 10*3/uL LAB HEMATOLOGY METHOD 04/06/2022 1:58 PM EDT [facility] Blood Venous blood specimen / Unknown Venipuncture / Unknown 04/06/2022 1:19 PM EDT 04/06/2022 1:19 PM EDT Gregory Forrest MD LAB BLOOD ORDERABLE S [facility] [address] [id number], documented in this encounter Visit Diagnoses Diagnosis Acquired absence of breast and absent nipple, right Malignant neoplasm of right female breast, unspecified estrogen receptor status, unspecified site of breast Ptosis of left breast documented in this encounter Care Teams Sanipractic Physician Relationship Specialty Start Date End Date Ricardo Contreras MD [address] [place] [address] PCP - General Jalil Marie MD [address] [place] [address] Consulting Physician Hematology 04/12/22 Barbie Jorgensen APRN [address] [place] [phone] Nurse Practitioner Oncology 06/21/22 Clara Holbrook APRN [address] [place] [phone] Nurse Practitioner Oncology 01/24/23 documented as of this encounter
--- OUTSIDE RECORDS SUMMARY | 2024-08-18 13:12 | XMS_ITS | Encounter Summary ---
Author Organization [facility] nter Address [address] [place] [id number] Care Team Providers Care Locomotive Engineer Diesel Name Role Phone Ricardo Contreras MD Primary Care Provider + Encounter Details Date Type Department Care Team (Late st Contact Info) Description 01/31/2022 Orders Only [facility] GENERAL SURGERY PRACTICE [address] [place] [address] Celina Vargas NP [address] [place] [address] Malignant neoplasm of right female breast, unspecified estrogen receptor status, unspecified site of breast (Primary Dx) Social History Tobacco Use Types Packs/Day Years Used Date Smoking Tobacco: Never Assessed Sex and Gender Information Value Date Recorded Sex Assigned at Female 2021 11:11 AM EST Gender Identity Female 2021 11:11 AM EST Sexual Orientation Straight 2021 11 :11 AM EST documented as of this encounter Plan of Treatment Scheduled Orders Name Type Priority Associated Diagnoses Orde r Schedule BI Diagnostic mammogram left Imaging Routine Malignant neoplasm of right female breast, unspecified estrogen receptor status, unspecified site of breast (HCC) Expected: 11/08/2022, Expires: 04/02/2023 documented as of this encounter Visit Diagnoses Diagnosis Malignant neoplasm of right female breast, unspecified estrogen receptor status, unspecified site of breast- Primary documented in this encounter Care Teams Locomotive Engineer Diesel Relationship Specialty Start Date End Date Ricardo Contreras MD [address] [place] [address] PCP - General documented as of this encounter
--- OUTSIDE RECORDS SUMMARY | 2024-08-18 13:12 | XMS_ITS | Encounter Summary ---
Author Organization [facility] Address [address] [place] [address] Care Team Providers Care Crabbing Machine Operator Name Role Phone Ricardo Contreras MD Primary Care Provider + Encounter Details Date Type Department Care Team (Late st Contact Info) Description 03/23/2022 Telephone [facility] GENERAL SURGERY PRACTICE [address] [place] [address] Joe Brewster MD [address] [place] [address] Social History Tobacco Use Types [...] encounter Miscellaneous Notes * Telephone Encounter - Ciara Elias LPN - 03/23/2022 3:31 PM EDT Returned pt call advised pt that she would need to be seen back in the clinic before we could r/s colonoscopy. Pt verbalized understanding. Transferred to [facility] to make appointment. documented in this encounter Plan of Treatment Not on file documented as of this encounter Visit Diagnoses Not on filedocumented in this encounter Care Teams Crabbing Machine Operator Relationship Specialty Start Date End Date Ricardo Contreras MD [address] [place] [address] PCP - General documented as of this encounter
--- OUTSIDE RECORDS SUMMARY | 2024-08-18 13:12 | XMS_ITS | Encounter Summary ---
Author Organization [facility] Address [address] [place] [address] Care Team Providers Care Bronze Chaser Name Role Phone Ricardo Contreras MD Primary Care Provider + Encounter Details Date Type Department Care Team (Late st Contact Info) Description 03/07/2022 Telephone [facility] GENERAL SURGERY PRACTICE [address] [place] [address] Joe Brewster MD [address] [place] [address] Social History Tobacco Use Types [...] encounter Miscellaneous Notes * Telephone Encounter - Brenda Macias MA - 03/09/2022 8:39 AM EDT Called pt r/s colon for 04/13/2022 documented in this encounter Plan of Treatment Not on file documented as of this encounter Visit Diagnoses Not on filedocumented in this encounter Care Teams Bronze Chaser Relationship Specialty Start Date End Date Ricardo Contreras MD [address] [place] [address] PCP - General documented as of this encounter
--- OUTSIDE RECORDS SUMMARY | 2024-08-18 13:12 | XMS_ITS | Encounter Summary ---
Author Organization [facility] nter Address [address] [place] [address] Care Team Providers Care Taxation Inspector Name Role Phone Ricardo Contreras MD Primary Care Provider + Encounter Details Date Type Department Care Team (Late st Contact Info) Description 07/04/2021 1:48 PM EDT - 07/18/2021 11:59 PM EST Hospital Encounter [facility] CONVERSION OUTPATIENT [address] [place] [address] Gregory Forrest MD [address] [place] [phone] Social History Tobacco Use Types Packs/Day Years [...] mouth every 12 (twelve) hours. 05/06/2021 06/21/2022 fluconazole (Diflucan) 150 MG tablet Take 150 mg by mouth in the morning. 07/17/2021 06/21/2022 documented as of this encounter Plan of Treatment Not on file documented as of this encounter Visit Diagnoses Not on filedocumented in this encounter Care Teams Taxation Inspector Relationship Specialty Start Date End Date Ricardo Contreras MD [address] [place] [address] PCP - General documented as of this encounter
--- OUTSIDE RECORDS SUMMARY | 2024-08-18 13:12 | XMS_ITS | Encounter Summary ---
Author Organization [facility] Address [address] [facility] [place] [address] Care Team Providers Care Washer Repairman Name Role Phone Ricardo Contreras MD Primary Care Provider + Jalil Marie MD Unavailable [phone] Reason for Visit * Reason Comments Follow-up Encounter Details Date Type Department Care Team (Late st Contact Info) Description 03/30/2022 10:45 AM EDT Office Visit [facility] [address] [place] [phone] Gregory Forrest MD [address] [place] [phone] Ptosis of left breast (Primary Dx); [...] - - Weight 85.7 kg (189 lb) 03/30/2022 11:43 AM EDT Height 162.6 cm (5' 4 ) 03/30/2022 11:43 AM EDT Body Mass Index 32.44 03/30/2022 11:43 AM EDT documented in this encounter Progress Notes * Gregory Forrest MD - 03/30/2022 10:45 AM EDT Subjective : Patient ID: Catie [...] not in Epic or NextGen. Alloderm 16x20 [id number] medium, [place] Artoura UHP smooth 650 ml. documented in this encounter Miscellaneous Notes * Addendum Note - Gregory Forrest MD - 03/30/2022 10:45 AM EDTAddended by: GREGORY FORREST on: 04/12/2022 03:54 PM Modules accepted: Orders documented in this [...] - 6.0 % 04/07/2022 1:58 AM EDT [facility] Comment: Additional Reference Ranges: 6.0 - 9.0% Controlled Diabetic >9.0 ?Poorly Controlled Diabetic *Hemoglobin A1c is an FDA approved test for monitoring retirement glucose control in individuals with diabetes. It [...] Gregory Forrest MD LAB BLOOD ORDERABLE S [facility] [address] [place] [address], * (ABNORMAL) Comprehensive metabolic panel (04/06/2022 1:19 PM EDT) Pathologist [facility] Sodium 139 133 - 144 mmol/L 04/06/2022 2:17 PM EDT [facility] Potassium 4.0 3.6 - 5.2 mmol/L 04/06/2022 2:17 PM [facility] Chloride 109(H) 98 - 107 mmol/L 04/06/2022 2:17 PM [facility] CO2 26 21 - 32 mmol/L 04/06/2022 2:17 PM [facility] Anion Gap 4(L) 5 - 15 mmol/L 04/06/2022 2:17 PM [facility] BUN 14 7 - 18 mg/dL 04/06/2022 2:17 PM EDT [facility] Creatinine 1.30(H) 0.55 - 1.02 mg/dL 04/06/2022 2:17 PM [facility] BUN/Creatinine Ratio 10.77 10.00 - 20.00 ratio 04/06/2022 2:17 PM [facility] Glucose 109 70 - 110 mg/dL 04/06/2022 2:17 PM [facility] Calcium 9.7 8.5 - 10.1 mg/dL 04/06/2022 2:17 PM [facility] AST 17 15 - 37 U/L 04/06/2022 2:17 PM [facility] ALT (SGPT) 23 13 - 56 U/L 04/06/2022 2:17 PM [facility] Alkaline Phosphatase 69 45 - 117 U/L 04/06/2022 2:17 PM [facility] Total Protein 7.1 6.4 - 8.4 g/dL 04/06/2022 2:17 PM [facility] Albumin 3.5 3.4 - 5.0 g/dL 04/06/2022 2:17 PM [facility] Globulin, Total 3.6 2.4 - 4.8 g/dL 04/06/2022 2:17 PM [facility] A/G Ratio 1.0 0.6 - 1.6 04/06/2022 2:17 PM [facility] Total Bilirubin 0.3 0.0 - 1.0 mg/dL 04/06/2022 2:17 PM [facility] eGFR 48.3(L) >60.0 - 200.0 mL/min/1.7 3m*2 04/06/2022 2:17 PM [facility] Blood Venous blood specimen / Unknown Venipuncture / Unknown 04/06/2022 1:19 PM EDT 04/06/2022 1:19 PM EDT Gregory Forrest MD LAB BLOOD ORDERABLE S [facility] [address] [place] [address], * CBC auto differential (04/06/2022 1:19 PM EDT) Auto WBC 7.7 3.0 - 11.3 10*3/uL LAB HEMATOLOGY METHOD 04/06/2022 1:58 PM EDT [facility] RBC 4.69 3.45 - 5.40 10*6/uL LAB HEMATOLOGY METHOD 04/06/2022 1:58 PM EDT [facility] Hemoglobin 13.5 10.0 - 16.0 g/dL LAB HEMATOLOGY METHOD 04/06/2022 1:[facility] [address] [facility] Hematocrit 40.0 29.9 - 45.5 % LAB HEMATOLOGY METHOD 04/06/2022 1:58 PM [facility] MCV 85.4 78.2 - 101.8 fL LAB HEMATOLOGY METHOD 04/06/2022 1:58 PM [facility] MCH 28.9 26.4 - 33.3 pg LAB HEMATOLOGY METHOD 04/06/2022 1:58 PM [facility] MCHC 33.8 32.5 - 35.3 g/dL LAB HEMATOLOGY METHOD 04/06/2022 1:58 PM [facility] RDW 13.4 10.1 - 16.2 % LAB HEMATOLOGY METHOD 04/06/2022 1:58 PM [facility] MPV 8.1 6.4 - 10.4 fL LAB HEMATOLOGY METHOD 04/06/2022 1:58 PM EDT [facility] Neutrophils % 59 43 - 83 % LAB HEMATOLOGY METHOD 04/06/2022 1:58 PM [facility] Lymphocytes % 33 10 - 42 % LAB HEMATOLOGY METHOD 04/06/2022 1:58 PM [facility] Monocytes % 6 1 - 14 % LAB HEMATOLOGY METHOD 04/06/2022 1:58 PM [facility] Eosinophils % 2 0 - 11 % LAB HEMATOLOGY METHOD 04/06/2022 1:58 PM [facility] Basophils % 1 0 - 2 % LAB HEMATOLOGY METHOD 04/06/2022 1:58 PM EDT [facility] Neutrophils Absolute 4.50 3.40 - 7.00 10*3/uL LAB HEMATOLOGY METHOD 04/06/2022 1:58 PM EDT [facility] Lymphocytes Absolute 2.60 0.40 - 3.90 10*3/uL LAB HEMATOLOGY METHOD 04/06/2022 1:58 PM EDT [facility] Monocytes Absolute 0.40 0.20 - 0.60 10*3/uL LAB HEMATOLOGY METHOD 04/06/2022 1:58 PM EDT [facility] Eosinophils Absolute 0.20 0.00 - 0.90 10*3/uL LAB HEMATOLOGY METHOD 04/06/2022 1:58 PM EDT [facility] Basophils Absolute 0.10 0.00 - 0.20 10*3/uL LAB HEMATOLOGY METHOD 04/06/2022 1:58 PM EDT [facility] Platelets 201 122 - 454 10*3/uL LAB HEMATOLOGY METHOD 04/06/2022 1:58 PM EDT [facility] Blood Venous blood specimen / Unknown Venipuncture / Unknown 04/06/2022 1:19 PM EDT 04/06/2022 1:19 PM EDT Gregory Forrest MD LAB BLOOD ORDERABLE S [facility] [address] [place] [address], documented in this encounter Visit Diagnoses Diagnosis Ptosis of left breast- Primary Acquired absence of breast and absent nipple, right documented in this encounter Care Teams Washer Repairman Relationship Specialty Start Date End Date Ricardo Contreras MD [address] [place] [address] PCP - General Jalil Marie MD [address] [place] [phone] Consulting Physician Hematology 04/12/22 documented as of this encounter
--- OUTSIDE RECORDS SUMMARY | 2024-08-18 13:12 | XMS_ITS | Encounter Summary ---
Author Organization [facility] nter Address [address] [place], [place] [id number] [place] [address] Care Team Providers Care Hyster Machine Operator Name Role Phone Ricardo Contreras MD Primary Care Provider + Encounter Details Date Type Department Care Team (Latest Contact Info) Description 10/08/2021 6:40 PM EST - 10/08/2021 9:07 PM EST Hospital Encounter PMC CONVERSION OUTPATIENT [address] [place] [address] Sang Smith DO [address] [place] [phone] Type 2 diabetes mellitus with hyperglycemia (CMS/HCC) ([facility]); halfway (current) use of oral hypoglycemic drugs; Essential (primary) hypertension; Other manager (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; Latex allergy status; Bee allergy status; Other nonmedicinal substance allergy status Discharge Disposition: Home or Self Care Social [...] Associated Diagnosis Comments POCT GLUCOSE PERFORMABLE Routine 10/08/2021 9:01 PM EST CBC WITH AUTO DIFFERENTIAL Routine 10/08/2021 8:55 PM EST URINALYSIS WITH MICROSCOPIC Routine 10/08/2021 7:55 PM EST URINE CULTURE Routine 10/08/2021 7:52 PM EST GFR CALCULATED Routine 10/08/2021 7:24 PM EST BETA HYDROXYBUTYRATE Routine 10/08/2021 7:24 PM EST BASIC METABOLIC PANEL Routine 10/08/2021 7:24 PM EST POCT GLUCOSE PERFORMABLE Routine 10/08/2021 6:57 PM EST documented in this encounter Results * (ABNORMAL) POCT glucose meter (10/08/2021 9:01 PM EST) Glucose 254(H) 70 - 110 MG/DL 10/08/2021 9:01 PM EST [facility] 10/08/2021 9:01 PM EST 10/08/2021 9:17 PM EST Sang Smith DO LAB POINT OF CARE TE ST DOCKED DEVICE UNSOLICITED RESULTS [facility] [address] [place] [address], * (ABNORMAL) CBC auto differential (10/08/2021 8:55 PM EST) Platelets 194 122 - 454 K/ul 10/08/2021 8:56 PM [facility] RBC 4.640 3.450 - 5.400 M/ul 10/08/2021 8:56 PM [facility] MCV 86.7 78.2 - 101.8 fl 10/08/2021 8:56 PM [facility] MCH 28.7 26.4 - 33.3 pg 10/08/2021 8:56 PM [facility] MCHC 33.1 32.5 - 35.3 g/dL 10/08/2021 8:56 PM [facility] RDW 13.7 10.1 - 16.2 % 10/08/2021 8:56 PM [facility] MPV 9.0 6.4 - 10.4 fl 10/08/2021 8:56 PM [facility] Neutrophils % 50.2 43.0 - 83.0 % 10/08/2021 8:56 PM [facility] Neutrophils Absolute 3.9 2.7 - 6.9 K/ul 10/08/2021 8:56 PM [facility] Auto WBC 7.70 3.00 - 11.30 K/ul 10/08/2021 8:56 PM [facility] nRBC 0.00 10/08/2021 8:56 PM [facility] Basophils % 0.8 0.0 - 2.0 % 10/08/2021 8:56 PM [facility] Basophils Absolute 0.1 0.0 - 0.2 K/ul 10/08/2021 8:56 PM [facility] Eosinophils % 1.9 0.0 - 9.0 % 10/08/2021 8:56 PM [facility] Eosinophils Absolute 0.1 0.0 - 0.9 K/ul 10/08/2021 8:56 PM [facility] Lymphocytes % 42.1(H) 10.0 - 42.0 % 10/08/2021 8:56 PM [facility] Lymphocytes Absolute 3.2 0.4 - 3.9 K/ul 10/08/2021 8:56 PM [facility] Monocytes % 5.0 1.0 - 14.0 % 10/08/2021 8:56 PM [facility] Monocytes Absolute 0.4 0.2 - 0.6 K/ul 10/08/2021 8:56 PM [facility] Hematocrit 40.2 29.9 - 45.5 % 10/08/2021 8:56 PM [facility] Hemoglobin 13.3 10.0 - 16.0 gm/dl 10/08/2021 8:56 PM [facility] 10/08/2021 8:55 PM EST 10/08/2021 8:55 PM EST Sang Smith DO LAB BLOOD ORDERABLES [facility] [address] [place] [address], * (ABNORMAL) Urinalysis with microscopic (10/08/2021 7:55 PM EST) RBC, Urine 0 0 - 4 /hpf 10/08/2021 8:04 PM [facility] WBC, Urine 15(H) 0 - 5 /hpf 10/08/2021 8:04 PM [facility] Squamous Epithelial, Urine 2 0 - 6 /hpf 10/08/2021 8:04 PM [facility] Bacteria, Urine NEGATIVE /hpf 10/08/2021 8:04 PM [facility] Hyaline Casts, Urine 0 0 - 4 /lpf 10/08/2021 8:04 PM [facility] Color, Urine YELLOW 10/08/2021 8:09 PM [facility] Clarity, Urine CLEAR 10/08/2021 8:09 PM [facility] Glucose, Urine >=1000 mg/dL 10/08/2021 8:09 PM [facility] Bilirubin, Urine NEGATIVE 10/08/2021 8:09 PM [facility] Specific Castile, Urine 1.020 1.006 - 1.035 10/08/2021 8:09 PM [facility] Blood, Urine NEGATIVE 10/08/2021 8:09 PM [facility] pH, Urine 5.5 5.0 - 9.0 10/08/2021 8:09 PM [facility] Protein, Urine NEGATIVE mg/dL 10/08/2021 8:09 PM [facility] Urobilinogen, Urine 0.2 E.U./DL 10/08/2021 8:09 PM [facility] Nitrite, Urine NEGATIVE 10/08/2021 8:09 PM [facility] Leukocytes, Urine NEGATIVE 10/08/2021 8:09 PM [facility] 10/08/2021 7:55 PM EST 10/08/2021 7:58 PM EST [facility] URINE ORDERABLES Performing Organization Address City/[facility]/ZIP Co de Phone Number [facility] [address] [place] [address], * Urine culture (10/08/2021 7:52 PM EST) Urine Culture FINAL 10,000-25, 000 CFU/ML OF MIXED SKIN SOLOMON 10/10/2021 7:05 AM [facility] 10/08/2021 7:52 PM EST 10/08/2021 9:15 PM EST [facility] MICROBIOLOGY - G ENERAL ORDERABLES [facility] [address] [place] [address], [place] [phone] * (ABNORMAL) GFR CALCULATED (10/08/2021 7:24 PM EST) eGFR 36.9(L) 60.0 - 200.0 ML/MIN 10/08/2021 8:37 PM [facility] 10/08/2021 7:24 PM EST 10/08/2021 7:24 PM EST [facility] CHG PERFORMABLES Performing Organization Address City/[facility]/ZIP Co de Phone Number [facility] [address] [place] [address], * Beta Hydroxybutyrate (10/08/2021 7:24 PM EST) Beta-Hydroxybu tyrate 0.18 0.02 - 0.27 mmol/L 10/08/2021 8:37 PM [facility] 10/08/2021 7:24 PM EST 10/08/2021 8:00 PM EST Sang [facility] LAB BLOOD ORDERABLES Performing Organization Address City/[facility]/ZIP Co de Phone Number [facility] [address] [place] [address], * (ABNORMAL) Basic metabolic panel (10/08/2021 7:24 PM EST) Calcium 9.2 8.5 - 10.1 mg/dL 10/08/2021 8:37 PM [facility] Chloride 101 98 - 107 mmol/L 10/08/2021 8:37 PM [facility] CO2 27 21 - 32 mmol/L 10/08/2021 8:37 PM [facility] Creatinine 1.50(H) 0.60 - 1.30 MG/DL 10/08/2021 8:37 PM [facility] Potassium 4.8 3.6 - 5.2 mmol/L 10/08/2021 8:37 PM [facility] Sodium 134 133 - 144 mmol/L 10/08/2021 8:37 PM [facility] BUN 16 7 - 18 MG/DL 10/08/2021 8:37 PM [facility] Glucose 374(H) 70 - 110 MG/DL 10/08/2021 8:37 PM [facility] 10/08/2021 7:24 PM EST 10/08/2021 8:00 PM EST Sang Smith DO LAB BLOOD ORDERABLES Performing Organization Address City/[facility]/ZIP Co de Phone Number [facility] [address] [place] [address], [place] [phone] * (ABNORMAL) POCT glucose meter (10/08/2021 6:57 PM EST) Glucose 378(H) 70 - 110 MG/DL 10/08/2021 6:57 PM EST [facility] 10/08/2021 6:57 PM EST 10/08/2021 7:14 PM EST Ten Vallejo DO LAB POINT OF CARE TE ST DOCKED DEVICE UNSOLICITED RESULTS Performing Organization Address City/[facility] Co de Phone Number [facility] [address] [place] [address], [place] [phone] documented in this encounter Visit Diagnoses Diagnosis Type 2 diabetes mellitus with hyperglycemia halfway (current) use of oral hypoglycemic drugs Essential (primary) hypertension Unspecified essential hypertension Other care home (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 Latex allergy status Bee allergy status Other nonmedicinal substance allergy status documented in this encounter Care Teams Hyster Machine Operator Relationship Specialty Start Date End Date Ricardo Contreras MD [address] [place] [address] PCP - General documented as of this encounter
--- OUTSIDE RECORDS SUMMARY | 2024-08-18 13:12 | XMS_ITS | Encounter Summary ---
Author Organization [facility] nter Address [address] [place], [place] [address] [place], [place] [address] Care Team Providers Care Route Sales Representative Name Role Phone Ricardo Contreras MD Primary Care Provider + Encounter Details Date Type Department Care Team (Latest Contact Info) Description 10/05/2021 9:03 AM EST - 10/05/2021 11:59 PM EST Hospital Encounter PMC CONVERSION OUTPATIENT [address] [place] [address] Davy Hernandez MD [address] [place] [phone] Shortness of breath Discharge Disposition: Home or [...] as of this encounter Visit Diagnoses Diagnosis Shortness of breath documented in this encounter Care Teams Route Sales Representative Relationship Specialty Start Date End Date Ricardo Contreras MD [address] [place] [address] PCP - General documented as of this encounter
--- OUTSIDE RECORDS SUMMARY | 2024-08-18 13:12 | XMS_ITS | Encounter Summary ---
Author Organization [facility] Ce nter Address [address] [place], [place] [address] [place] [address] Care Team Providers Care Assembly Worker Name Role Phone Ricardo Contreras MD Primary Care Provider + Encounter Details Date Type Department Care Team (Latest Contact Info) Description 10/24/2021 8:47 AM EST - 10/24/2021 11:59 PM EST Hospital Encounter PMC CONVERSION OUTPATIENT [address] [place] [address] Gregory Forrest MD [address] [place] [phone] Encounter for breast reconstruction following mastectomy Discharge [...] mastectomy documented in this encounter Care Teams Assembly Worker Relationship Specialty Start Date End Date Ricardo Contreras MD [address] [place] [address] PCP - General documented as of this encounter
--- OUTSIDE RECORDS SUMMARY | 2024-08-18 13:12 | XMS_ITS | Encounter Summary ---
Author Organization [facility] nter Address [address] [place], [place] [address] [place] [address] Care Team Providers Care Gas Scrubber Operator Name Role Phone Ricardo Contreras MD Primary Care Provider + Encounter Details Date Type Department Care Team (Latest Contact Info) Description 03/01/2022 Travel Social History Tobacco Use Types Packs/Day [...] on filedocumented in this encounter Care Teams Gas Scrubber Operator Relationship Specialty Start Date End Date Ricardo Contreras MD [address] [place] [address] PCP - General documented as of this encounter
--- OUTSIDE RECORDS SUMMARY | 2024-08-18 13:12 | XMS_ITS | Encounter Summary ---
Author Organization [facility] nter Address [address] [place], [place] [address] [place], [place] [address] Care Team Providers Care Private Watchman Name Role Phone Ricardo Contreras MD Primary Care Provider + Encounter Details Date Type Department Care Team (Late st Contact Info) Description 05/11/2021 12:01 AM EDT - 06/09/2021 11:59 PM EDT Hospital Encounter PMC CONVERSION OUTPATIENT [address] [place] [address] Barbie Jorgensen APRN [address] [place] [phone] Social History Tobacco Use Types Packs/Day Years [...] on filedocumented in this encounter Care Teams Private Watchman Relationship Specialty Start Date End Date Ricardo Contreras MD [address] [place] [address] PCP - General documented as of this encounter
--- OUTSIDE RECORDS SUMMARY | 2024-08-18 13:12 | XMS_ITS | Encounter Summary ---
Author Organization [facility] nter Address [address] [place], [place] [address] [place], [place] [phone] Care Team Providers Care Electrician Research Name Role Phone Ricardo Contreras MD Primary Care Provider + Encounter Details Date Type Department Care Team (Latest Contact Info) Description 10/08/2021 3:49 PM EST - 10/08/2021 11:59 PM EST Hospital Encounter PMC CONVERSION OUTPATIENT [address] [place] [address] Gregory Forrest MD [address] [place] [phone] Malignant neoplasm of unspecified site of right female breast (HCC); Malignant neoplasm of unspecified site of unspecified female breast (HCC); Iron deficiency anemia, unspecified; Shortness of breath; Encounter for breast reconstruction following mastectomy Discharge [...] Date/Time Associated Diagnosis Comments GFR CALCULATED Routine 10/08/2021 4:04 PM EST CBC WITH AUTO DIFFERENTIAL Routine 10/08/2021 4:04 PM EST ALBUMIN Routine 10/08/2021 4:04 PM EST BASIC METABOLIC PANEL Routine 10/08/2021 4:04 PM EST documented in this encounter Results * (ABNORMAL) GFR CALCULATED (10/08/2021 4:04 PM EST) Pathologist [facility] eGFR 34.3(L) 60.0 - 200.0 ML/MIN 10/08/2021 5:00 PM [facility] 10/08/2021 4:04 PM EST 10/08/2021 4:04 PM EST Gregory Forrest MD LAB CHG PERFORMABLE S [facility] [address] [place] [address], * CBC auto differential (10/08/2021 4:04 PM EST) Pathologist [facility] Platelets 202 122 - 454 K/ul 10/08/2021 4:29 PM [facility] RBC 4.860 3.450 - 5.400 M/ul 10/08/2021 4:29 PM [facility] MCV 86.8 78.2 - 101.8 fl 10/08/2021 4:29 PM [facility] MCH 28.6 26.4 - 33.3 pg 10/08/2021 4:29 PM [facility] MCHC 32.9 32.5 - 35.3 g/dL 10/08/2021 4:29 PM [facility] RDW 13.9 10.1 - 16.2 % 10/08/2021 4:29 PM [facility] MPV 8.8 6.4 - 10.4 fl 10/08/2021 4:29 PM [facility] Neutrophils % 53.7 43.0 - 83.0 % 10/08/2021 4:29 PM [facility] Neutrophils Absolute 4.5 2.7 - 6.9 K/ul 10/08/2021 4:29 PM [facility] Auto WBC 8.30 3.00 - 11.30 K/ul 10/08/2021 4:29 PM [facility] nRBC 0.10 10/08/2021 4:29 PM [facility] Basophils % 0.6 0.0 - 2.0 % 10/08/2021 4:29 PM [facility] Basophils Absolute 0.0 0.0 - 0.2 K/ul 10/08/2021 4:29 PM [facility] Eosinophils % 2.0 0.0 - 9.0 % 10/08/2021 4:29 PM [facility] Eosinophils Absolute 0.2 0.0 - 0.9 K/ul 10/08/2021 4:29 PM [facility] Lymphocytes % 38.2 10.0 - 42.0 % 10/08/2021 4:29 PM [facility] Lymphocytes Absolute 3.2 0.4 - 3.9 K/ul 10/08/2021 4:29 PM [facility] Monocytes % 5.5 1.0 - 14.0 % 10/08/2021 4:29 PM [facility] Monocytes Absolute 0.5 0.2 - 0.6 K/ul 10/08/2021 4:29 PM [facility] Hematocrit 42.2 29.9 - 45.5 % 10/08/2021 4:29 PM [facility] Hemoglobin 13.9 10.0 - 16.0 gm/dl 10/08/2021 4:29 PM [facility] 10/08/2021 4:04 PM EST 10/08/2021 4:10 PM EST Gregory Forrest MD LAB BLOOD ORDERABLE S Performing Organization Address City/[facility]/ZIP Co de Phone Number [facility] [address] [place] [address], * (ABNORMAL) Albumin (10/08/2021 4:04 PM EST) Pathologist [facility] Albumin 3.3(L) 3.4 - 5.0 g/dL 10/08/2021 5:00 PM [facility] 10/08/2021 4:04 PM EST 10/08/2021 4:10 PM EST Gregory Forrest MD LAB BLOOD ORDERABLE S Performing Organization Address City/[facility]/ZIP Co de Phone Number [facility] [address] [place] [address], [place] [phone] * (ABNORMAL) Basic metabolic panel (10/08/2021 4:04 PM EST) Calcium 9.0 8.5 - 10.1 mg/dL 10/08/2021 5:00 PM [facility] Chloride 102 98 - 107 mmol/L 10/08/2021 5:00 PM [facility] CO2 26 21 - 32 mmol/L 10/08/2021 5:00 PM [facility] Creatinine 1.60(H) 0.60 - 1.30 MG/DL 10/08/2021 5:00 PM [facility] Potassium 4.9 3.6 - 5.2 mmol/L 10/08/2021 5:00 PM [facility] Sodium 132(L) 133 - 144 mmol/L 10/08/2021 5:00 PM [facility] BUN 17 7 - 18 MG/DL 10/08/2021 5:00 PM [facility] Glucose 487(HH) 70 - 110 MG/DL 10/08/2021 5:00 PM EST [facility] 10/08/2021 4:04 PM EST 10/08/2021 4:10 PM EST Gregory Forrest MD LAB BLOOD ORDERABLE S [facility] [address] [place] [address], documented in this encounter Visit Diagnoses Diagnosis Malignant neoplasm of unspecified site of right female breast Malignant neoplasm of unspecified site of unspecified female breast Iron deficiency anemia, unspecified Shortness of breath Encounter for breast reconstruction following mastectomy documented in this encounter Care Teams Electrician Research Relationship Specialty Start Date End Date Ricardo Contreras MD [address] [place] [address] PCP - General documented as of this encounter
--- OUTSIDE RECORDS SUMMARY | 2024-08-18 13:12 | XMS_ITS | Encounter Summary ---
Author Organization [facility] nter Address [address] [place] [address] Care Team Providers Care Glass Fitter Name Role Phone Ricardo Contreras MD Primary Care Provider + Jalil Marie MD Unavailable [phone] Barbie Jorgensen INVESTIGATOR WELFARE Unavailable [phone] Clara Holbrook INVESTIGATOR WELFARE Unavailable [phone] Reason for Referral * Hospital - Outpatient (Routine) - Authorized Specialty Diagnoses / Procedures Referred By Contac t Referred To Contact Gastroenterology Diagnoses Encounter for screening for malignant neoplasm of colon Procedures Colonoscopy KS COLONOSCOPY FLX DX W/COLLJ SPEC WHEN PFRMD KS COLONOSCOPY W/BIOPSY SINGLE/MULTIPLE KS COLSC FLX W/RMVL OF TUMOR POLYP LESION SNARE TQ KS COLORECTAL SCRN; HI RISK IND [place] COLON CA SCRN NOT HI RSK IND Joe Brewster MD [address] [place] [address] [facility] [address], [address] [place] [address] Referral ID Status Reason Start Date Expiration Date V isits Requested Visits Authorized [id number] Authorized 1 1 Encounter Details Date Type Department Care Team (Late st Contact Info) Description 03/09/2022 Orders Only [facility] [address] [place] [address] Brenda Macias MA [address] [place] [phone] Encounter for screening for malignant neoplasm of colon (Primary Dx) Social History Tobacco Use Types [...] Schedule Colonoscopy Endoscopy Routine Encounter for screening for malignant neoplasm of colon Expected: 04/13/2022, Expires: 09/08/2023 documented as of this encounter Visit Diagnoses Diagnosis Encounter for screening for malignant neoplasm of colon- Primary documented in this encounter Care Teams Glass Fitter Relationship Specialty Start Date End Date Ricardo Contreras MD [address] [place], [place] [phone] PCP - General Jalil Marie MD [facility] [place] [address] Consulting Physician Hematology 04/12/22 Barbie Jorgensen APRN [address] [place] [address] [place] [address] Nurse Practitioner Oncology 06/21/22 Clara Holbrook APRN [facility] [place] [address] Nurse Practitioner Oncology 01/24/23 documented as of this encounter
--- OUTSIDE RECORDS SUMMARY | 2024-08-18 13:12 | XMS_ITS | Encounter Summary ---
Author Organization [facility] Address [address] [place] [address] [place] [phone] Care Team Providers Care Oracle Database Architect Name Role Phone Ricardo Contreras MD Primary Care Provider + Encounter Details Date Type Department Care Team (Latest Contact Info) Description 01/31/2022 5:02 PM EDT - 01/31/2022 11:59 PM EDT Hospital Encounter PMC CONVERSION OUTPATIENT [address] [place] [phone] Joe Brewster MD [address] [place] [address] Celina Vargas NP [address] [place] [phone] Discharge Disposition: Home or Self Care Social [...] End Date ergocalciferol (Vitamin D2) 1.25 MG (61926 UT) capsule 1 capsule (50,000 Units) 1 (one) time per week. 01/18/2022 hydrOXYzine HCl (Atarax) 25 MG tablet Take 1 tablet (25 mg) by mouth if needed in the morning and at bedtime. May take morning of procedure 01/18/2022 loratadine (Claritin) 10 MG tablet Take 1 tablet (10 mg) by mouth with evening meal. Take night before procedure 12/21/2021 omeprazole (PriLOSEC) [address] capsule Take [...] on filedocumented in this encounter Care Teams Oracle Database Architect Relationship Specialty Start Date End Date Ricardo Contreras MD [address] [place] [phone] PCP - General documented as of this encounter
--- OUTSIDE RECORDS SUMMARY | 2024-08-18 13:12 | XMS_ITS | Encounter Summary ---
Author Organization [facility] nter Address [address] [place], [place] [address] [place] [address] Care Team Providers Care Inspection And Testing Supervisor Name Role Phone Ricardo Contreras MD Primary Care Provider + Encounter Details Date Type Department Care Team (Latest Contact Info) Description 03/29/2022 Travel Social History Tobacco Use Types Packs/Day [...] on filedocumented in this encounter Care Teams Inspection And Testing Supervisor Relationship Specialty Start Date End Date Ricardo Contreras MD [address] [place] [address] PCP - General documented as of this encounter
--- OUTSIDE RECORDS SUMMARY | 2024-08-18 13:13 | XMS_ITS | Encounter Summary ---
Author Organization [facility] nter Address [address] [place] [address] Care Team Providers Care Junk Removal Specialist Name Role Phone Ricardo Contreras MD Primary Care Provider + Encounter Details Date Type Department Care Team (Latest Contact Info) Description 01/03/2021 2:58 PM EDT - 01/03/2021 11:59 PM EDT Hospital Encounter PMC CONVERSION OUTPATIENT [address] [place] [address] Gregory Forrest MD [address] [place] [phone] Encounter for breast reconstruction following mastectomy Discharge [...] mastectomy documented in this encounter Care Teams Junk Removal Specialist Relationship Specialty Start Date End Date Ricardo Contreras MD [address] [place] [address] PCP - General documented as of this encounter
--- OUTSIDE RECORDS SUMMARY | 2024-08-18 13:13 | XMS_ITS | Encounter Summary ---
Author Organization [facility] nter Address [address] [place] [phone] [place], [place] [address] Care Team Providers Care Channel Development Director Name Role Phone Ricardo Contreras MD Primary Care Provider + Encounter Details Date Type Department Care Team (Latest Contact Info) Description 02/24/2021 12:01 AM EDT - 02/24/2021 11:59 PM EDT Hospital Encounter PMC CONVERSION OUTPATIENT [address] [place] [address] Ricardo Contreras MD [address] [place] [address] Palpitations; Bradycardia, unspecified Discharge Disposition: Home or Self Care Social [...] as of this encounter Visit Diagnoses Diagnosis Palpitations Bradycardia, unspecified documented in this encounter Care Teams Channel Development Director Relationship Specialty Start Date End Date Ricardo Contreras MD [address] [place], [place] [phone] PCP - General documented as of this encounter
--- OUTSIDE RECORDS SUMMARY | 2024-08-18 13:13 | XMS_ITS | Encounter Summary ---
Author Organization [facility] nter Address [address] [place], [place] [id number] [place], [place] [id number] Care Team Providers Care Hand I Cutter Name Role Phone Ricardo Contreras MD Primary Care Provider + Encounter Details Date Type Department Care Team (Latest Contact Info) Description 09/23/2020 9:03 AM EST - 09/23/2020 11:59 PM EST Hospital Encounter [facility] CONVERSION OUTPATIENT [address] [place] [address] Lesly Collazo PIANO TEACHER [address] [place] [phone] Encounter for other specified surgical aftercare Discharge [...] aftercare documented in this encounter Care Teams Hand I Cutter Relationship Specialty Start Date End Date Ricardo Contreras MD [address] [place] [address] PCP - General documented as of this encounter
--- OUTSIDE RECORDS SUMMARY | 2024-08-18 13:13 | XMS_ITS | Encounter Summary ---
Author Organization [facility] nter Address [address] [place], [place] [id number] [place] [address] Care Team Providers Care Chronometer Repairer Name Role Phone Ricardo Contreras MD Primary Care Provider + Encounter Details Date Type Department Care Team (Late st Contact Info) Description 09/15/2020 12:23 PM EST - 10/10/2020 11:59 PM EST Hospital Encounter [facility] CONVERSION OUTPATIENT [address] [place] [address] Catie Trevino MD [address] [place] [phone] Social History Tobacco Use Types Packs/Day Years [...] on filedocumented in this encounter Care Teams Chronometer Repairer Relationship Specialty Start Date End Date Ricardo Contreras MD [address] [place] [address] PCP - General documented as of this encounter
--- OUTSIDE RECORDS SUMMARY | 2024-08-18 13:13 | XMS_ITS | Encounter Summary ---
Author Organization [facility] nter Address [address] [place], [place] [address] [place] [address] Care Team Providers Care It Communications Specialist Name Role Phone Ricardo Contreras MD Primary Care Provider + Encounter Details Date Type Department Care Team (Late st Contact Info) Description 02/08/2021 12:01 AM EDT - 03/09/2021 11:59 PM EDT Hospital Encounter [facility] CONVERSION OUTPATIENT [address] [place] [phone] Clara Holbrook, SAFETY AND SECURITY MANAGER [address] [place] [phone] Social History Tobacco Use Types Packs/Day Years [...] on filedocumented in this encounter Care Teams It Communications Specialist Relationship Specialty Start Date End Date Ricardo Contreras MD [address] [place] [address] PCP - General documented as of this encounter
--- OUTSIDE RECORDS SUMMARY | 2024-08-18 13:13 | XMS_ITS | Encounter Summary ---
Author Organization [facility] nter Address [address] [place], [place] [phone] [place] [address] Care Team Providers Care Supervisor Cartography Name Role Phone Ricardo Contreras MD Primary Care Provider + Encounter Details Date Type Department Care Team (Latest Contact Info) Description 05/06/2021 10:24 AM EDT - 05/10/2021 11:59 PM EDT Hospital Encounter [facility] CONVERSION OUTPATIENT [address] [place] [address] Barbie Jorgensen, RADIO ANNOUNCER [address] [place] [phone] Malignant neoplasm of unspecified site of right female breast (CMS/HCC); Estrogen receptor positive status (ER+); Other nonspecific abnormal finding of lung field; Vitamin B12 deficiency anemia, unspecified; Iron deficiency anemia, unspecified; Localized enlarged lymph nodes; Acquired absence of right breast and nipple; Family history of malignant neoplasm of breast; Other fci (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; keno terminal operator (current) use of aromatase inhibitors; Other hyperlipidemia; Essential (primary) hypertension; Myalgia, unspecified site; Latex allergy status; Allergy to other foods; Bee allergy status; Personal history of nicotine dependence Discharge Disposition: Home or Self Care Social [...] Procedure Name Priority Date/Time Associated Diagnosis Comments TOTAL IRON BINDING CAPACITY Routine 05/06/2021 11:02 AM EDT CBC WITH AUTO DIFFERENTIAL Routine 05/06/2021 11:02 AM EDT TRANSFERRIN Routine 05/06/2021 11:02 AM EDT IRON Routine 05/06/2021 11:02 AM EDT FOLATE Routine 05/06/2021 11:02 AM EDT FERRITIN Routine 05/06/2021 11:02 AM EDT VITAMIN B12 Routine 05/06/2021 11:02 AM EDT COMPREHENSIVE METABOLIC PANEL Routine 05/06/2021 11:02 AM EDT GFR CALCULATED Routine 05/06/2021 10:25 AM EDT documented in this encounter Results * (ABNORMAL) CBC auto differential (05/06/2021 11:02 AM EDT) Platelets 156 122 - 454 K/ul 05/06/2021 11:35 AM EDT [facility] RBC 4.680 3.450 - 5.400 M/ul 05/06/2021 11:35 AM EDT [facility] MCV 84.5 78.2 - 101.8 fl 05/06/2021 11:35 AM EDT [facility] MCH 28.6 26.4 - 33.3 pg 05/06/2021 11:35 AM EDT [facility] MCHC 33.9 32.5 - 35.3 g/dL 05/06/2021 11:35 AM [facility] RDW 13.2 10.1 - 16.2 % 05/06/2021 11:35 AM [facility] MPV 7.9 6.4 - 10.4 fl 05/06/2021 11:35 AM [facility] Neutrophils % 41.9(L) 43.0 - 83.0 % 05/06/2021 11:35 AM [facility] Neutrophils Absolute 2.6(L) 2.7 - 6.9 K/ul 05/06/2021 11:35 AM [facility] Auto WBC 6.20 3.00 - 11.30 K/ul 05/06/2021 11:35 AM [facility] nRBC 0.20 05/06/2021 11:35 AM [facility] Basophils % 0.4 0.0 - 2.0 % 05/06/2021 11:35 AM [facility] Basophils Absolute 0.0 0.0 - 0.2 K/ul 05/06/2021 11:35 AM [facility] Eosinophils % 2.0 0.0 - 9.0 % 05/06/2021 11:35 AM [facility] Eosinophils Absolute 0.1 0.0 - 0.9 K/ul 05/06/2021 11:35 AM [facility] Lymphocytes % 49.3(H) 10.0 - 42.0 % 05/06/2021 11:35 AM [facility] Lymphocytes Absolute 3.1 0.4 - 3.9 K/ul 05/06/2021 11:35 AM [facility] Monocytes % 6.4 1.0 - 14.0 % 05/06/2021 11:35 AM [facility] Monocytes Absolute 0.4 0.2 - 0.6 K/ul 05/06/2021 11:35 AM [facility] Hematocrit 39.6 29.9 - 45.5 % 05/06/2021 11:35 AM [facility] Hemoglobin 13.4 10.0 - 16.0 gm/dl 05/06/2021 11:35 AM EDT [facility] 05/06/2021 11:0 2 AM EDT 05/06/2021 11:18 AM EDT Barbie Jorgensen APRN LAB BLOOD ORDERABLES Performing Organization Address City/[facility]/ZIP Co de Phone Number [facility] [address] [place] [address], [place] [phone] * (ABNORMAL) Vitamin B12 (05/06/2021 11:02 AM EDT) Vitamin B-12 1,808(H) 254 - 1,320 pg/mL 05/06/2021 12:21 PM EDT [facility] 05/06/2021 11:0 2 AM EDT 05/06/2021 11:18 AM EDT Barbie Jorgensen APRN LAB BLOOD ORDERABLES Performing Organization Address City/[facility]/ZIP Co de Phone Number [facility] [address] [place] [address], [place] [phone] * Total Iron Binding Capacity (05/06/2021 11:02 AM EDT) TIBC 303 250 - 450 ug/dL 05/06/2021 12:21 PM EDT [facility] 05/06/2021 11:0 2 AM EDT 05/06/2021 11:18 AM EDT Barbie Jorgensen APRN LAB BLOOD ORDERABLES Performing Organization Address City/[facility]/ZIP Co de Phone Number [facility] [address] [place] [address], [place] [phone] * Iron (05/06/2021 11:02 AM EDT) Iron 66 50 - 175 ug/dL 05/06/2021 12:21 PM EDT [facility] 05/06/2021 11:0 2 AM EDT 05/06/2021 11:18 AM EDT Barbie Jorgensen APRN LAB BLOOD ORDERABLES Performing Organization Address City/[facility]/ZIP Co de Phone Number [facility] [address] [place] [address], [place] [phone] * Folate (05/06/2021 11:02 AM EDT) Folate 8.0 3.1 - 17.5 ng/mL 05/06/2021 12:21 PM EDT [facility] 05/06/2021 11:0 2 AM EDT 05/06/2021 11:18 AM EDT Barbie Jorgensen APRN LAB BLOOD ORDERABLES Performing Organization Address City/[facility]/ZIP Co de Phone Number [facility] [address] [place] [address], [place] [phone] * Ferritin (05/06/2021 11:02 AM EDT) Ferritin 45 9 - 246 ng/mL 05/06/2021 12:21 PM EDT [facility] 05/06/2021 11:0 2 AM EDT 05/06/2021 11:18 AM EDT Barbie Jorgensen APRN LAB BLOOD ORDERABLES Performing Organization Address City/[facility]/ZIP Co de Phone Number [facility] [address] [place] [address], [place] [phone] * Transferrin (05/06/2021 11:02 AM EDT) Transferrin 241 200 - 370 MG/DL 05/06/2021 12:21 PM EDT [facility] 05/06/2021 11:0 2 AM EDT 05/06/2021 11:18 AM EDT Barbie Jorgensen APRN LAB BLOOD ORDERABLES [facility] [address] [place] [address], * (ABNORMAL) Comprehensive metabolic panel (05/06/2021 11:02 AM EDT) Globulin, Total 3.4 2.4 - 4.8 g/dL 05/06/2021 12:21 PM [facility] A/G Ratio 1.0 0.6 - 1.6 05/06/2021 12:21 PM [facility] Calcium 8.9 8.5 - 10.1 mg/dL 05/06/2021 12:21 PM [facility] Chloride 110(H) 98 - 107 mmol/L 05/06/2021 12:21 PM [facility] CO2 23 21 - 32 mmol/L 05/06/2021 12:21 PM [facility] Creatinine 1.40(H) 0.60 - 1.30 MG/DL 05/06/2021 12:21 PM [facility] Potassium 4.2 3.6 - 5.2 mmol/L 05/06/2021 12:21 PM [facility] Sodium 139 133 - 144 mmol/L 05/06/2021 12:21 PM [facility] Albumin 3.4 3.4 - 5.0 g/dL 05/06/2021 12:21 PM [facility] Alkaline Phosphatase 76 45 - 117 U/L 05/06/2021 12:21 PM [facility] Total Bilirubin 0.49 0.00 - 1.00 MG/DL 05/06/2021 12:21 PM [facility] ALT (SGPT) 16 12 - 78 U/L 05/06/2021 12:21 PM [facility] Total Protein 6.8 6.4 - 8.4 g/dL 05/06/2021 12:21 PM [facility] AST 17 15 - 37 U/L 05/06/2021 12:21 PM [facility] BUN 22(H) 7 - 18 MG/DL 05/06/2021 12:21 PM EDT [facility] Glucose 192(H) 70 - 110 MG/DL 05/06/2021 12:21 PM EDT [facility] 05/06/2021 11:0 2 AM EDT 05/06/2021 11:18 AM EDT Barbie Jorgensen APRN LAB BLOOD ORDERABLES Performing Organization Address City/[facility]/ZIP Co de Phone Number [facility] [address] [place] [address], [place] [phone] * (ABNORMAL) GFR CALCULATED (05/06/2021 10:25 AM EDT) eGFR 40.1(L) 60.0 - 200.0 ML/MIN 05/06/2021 12:21 PM EDT [facility] 05/06/2021 10:2 5 AM EDT 05/06/2021 10:25 AM EDT Barbie Jorgensen APRN LAB CHG PERFORMABLES Performing Organization Address City/[facility]/ZIP Co de Phone Number [facility] [address] [place] [address], [place] [phone] documented in this encounter Visit Diagnoses Diagnosis Malignant neoplasm of unspecified site of right female breast Estrogen receptor positive status (ER+) Estrogen receptor positive status [ER+] Other nonspecific abnormal finding of lung field Vitamin B12 deficiency anemia, unspecified Iron deficiency anemia, unspecified Localized enlarged lymph nodes Acquired absence of right breast and nipple Family history of malignant neoplasm of breast Other fci (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 keno terminal operator (current) use of aromatase inhibitors Other hyperlipidemia Essential (primary) hypertension Unspecified essential hypertension Myalgia, unspecified site Latex allergy status Allergy to other foods Bee allergy status Personal history of nicotine dependence documented in this encounter Care Teams Supervisor Cartography Relationship Specialty Start Date End Date Ricardo Contreras MD [address] [place] [address] PCP - General documented as of this encounter
--- OUTSIDE RECORDS SUMMARY | 2024-08-18 13:13 | XMS_ITS | Encounter Summary ---
Author Organization [facility] nter Address [address] [place], [place] [phone] [place], [place] [address] Care Team Providers Care Oil Dispenser Name Role Phone Ricardo Contreras MD Primary Care Provider + Encounter Details Date Type Department Care Team (Latest Contact Info) Description 03/22/2021 11:37 AM EDT - 03/22/2021 11:59 PM EDT Hospital Encounter [facility] CONVERSION OUTPATIENT [address] [place] [address] Lesly Collazo MEMS PROCESS ENGINEER [address] [place] [phone] Encounter for screening for malignant neoplasm of colon Discharge Disposition: Home or Self Care Social [...] for screening for malignant neoplasm of colon documented in this encounter Care Teams Oil Dispenser Relationship Specialty Start Date End Date Ricardo Contreras MD [address] [place] [address] PCP - General documented as of this encounter
--- OUTSIDE RECORDS SUMMARY | 2024-08-18 13:13 | XMS_ITS | Encounter Summary ---
Author Organization [facility] nter Address [address] [place], [place] [id number] [place] [address] Care Team Providers Care Biomass Plant Technician Name Role Phone Ricardo Contreras MD Primary Care Provider + Encounter Details Date Type Department Care Team (Late st Contact Info) Description 04/15/2021 12:01 AM EDT - 04/15/2021 11:59 PM EDT Hospital Encounter [facility] CONVERSION OUTPATIENT [address] [place] [phone] Clara Holbrook, PHARMACEUTICAL DETAILER [address] [place] [phone] Social History Tobacco Use Types Packs/Day Years [...] on filedocumented in this encounter Care Teams Biomass Plant Technician Relationship Specialty Start Date End Date Ricardo Contreras MD [address] [place] [address] PCP - General documented as of this encounter
--- OUTSIDE RECORDS SUMMARY | 2024-08-18 13:13 | XMS_ITS | Encounter Summary ---
Author Organization [facility] nter Address [address] [place], [place] [id number] [place] [address] Care Team Providers Care Wildlife Refuge Specialist Name Role Phone Ricardo Contreras MD Primary Care Provider + Encounter Details Date Type Department Care Team (Latest Contact Info) Description 02/03/2021 1:35 PM EDT - 02/07/2021 11:59 PM EDT Hospital Encounter PMC CONVERSION OUTPATIENT [address] [place] [address] Clara Holbrook, LONI [address] [place] [phone] Malignant neoplasm of unspecified site of right female breast (CMS/HCC); Estrogen receptor positive status (ER+); Vitamin B12 deficiency anemia, unspecified; Iron deficiency anemia, unspecified; Solitary pulmonary nodule; Other chcf (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; terminal gauger (current) use of aromatase inhibitors; Acquired absence of right breast and nipple; Family history of malignant neoplasm of breast; custodial (current) use of opiate analgesic; Other hyperlipidemia; Essential (primary) hypertension; Gastro-esophageal reflux disease without esophagitis; Spondylosis without myelopathy or radiculopathy, lumbosacral region; Other specified disorders of middle ear and mastoid, unspecified ear; Segmental and somatic dysfunction of head region; Myalgia, unspecified site; Personal history of other infectious and parasitic diseases; Latex allergy status; Allergy to other foods; [...] Diagnosis Comments TOTAL IRON BINDING CAPACITY Routine 02/03/2021 1:49 PM EDT CBC WITH AUTO DIFFERENTIAL Routine 02/03/2021 1:49 PM EDT VITAMIN D, TOTAL Routine 02/03/2021 1:49 PM EDT TRANSFERRIN Routine 02/03/2021 1:49 PM EDT IRON Routine 02/03/2021 1:49 PM EDT FERRITIN Routine 02/03/2021 1:49 PM EDT VITAMIN B12 Routine 02/03/2021 1:49 PM EDT COMPREHENSIVE METABOLIC PANEL Routine 02/03/2021 1:49 PM EDT GFR CALCULATED Routine 02/03/2021 1:36 PM EDT documented in this encounter Results * (ABNORMAL) CBC auto differential (02/03/2021 1:49 PM EDT) Platelets 201 122 - 454 K/ul 02/03/2021 2:07 PM EDT [facility] RBC 4.940 3.450 - 5.400 M/ul 02/03/2021 2:07 PM EDT [facility] MCV 82.6 78.2 - 101.8 fl 02/03/2021 2:07 PM EDT [facility] MCH 26.7 26.4 - 33.3 pg 02/03/2021 2:07 PM EDT [facility] MCHC 32.3(L) 32.5 - 35.3 g/dL 02/03/2021 2:07 PM EDT [facility] RDW 17.1(H) 10.1 - 16.2 % 02/03/2021 2:07 PM EDT [facility] MPV 8.2 6.4 - 10.4 fl 02/03/2021 2:07 PM EDT [facility] Neutrophils % 47.0 43.0 - 83.0 % 02/03/2021 2:07 PM [facility] Neutrophils Absolute 3.3 2.7 - 6.9 K/ul 02/03/2021 2:07 PM EDT [facility] Auto WBC 7.10 3.00 - 11.30 K/ul 02/03/2021 2:07 PM [facility] nRBC 0.10 02/03/2021 2:07 PM [facility] Basophils % 1.3 0.0 - 2.0 % 02/03/2021 2:07 PM [facility] Basophils Absolute 0.1 0.0 - 0.2 K/ul 02/03/2021 2:07 PM [facility] Eosinophils % 2.3 0.0 - 9.0 % 02/03/2021 2:07 PM [facility] Eosinophils Absolute 0.2 0.0 - 0.9 K/ul 02/03/2021 2:07 PM [facility] Lymphocytes % 43.3(H) 10.0 - 42.0 % 02/03/2021 2:07 PM [facility] Lymphocytes Absolute 3.1 0.4 - 3.9 K/ul 02/03/2021 2:07 PM [facility] Monocytes % 6.1 1.0 - 14.0 % 02/03/2021 2:07 PM T [facility] Monocytes Absolute 0.4 0.2 - 0.6 K/ul 02/03/2021 2:07 PM [facility] Hematocrit 40.8 29.9 - 45.5 % 02/03/2021 2:07 PM [facility] Hemoglobin 13.2 10.0 - 16.0 gm/dl 02/03/2021 2:07 PM [facility] 02/03/2021 1:49 PM EDT 02/03/2021 1:57 PM EDT Clara Holbrook APRN LAB BLOOD ORDERABLES Performing Organization Address City/[facility]/ZIP Co de Phone Number [facility] [address] [place] [address], * (ABNORMAL) Vitamin B12 (02/03/2021 1:49 PM EDT) Vitamin B-12 197(L) 254 - 1,320 pg/mL 02/03/2021 2:57 PM EDT [facility] 02/03/2021 1:49 PM EDT 02/03/2021 1:57 PM EDT Clara Holbrook APRN LAB BLOOD ORDERABLES Performing Organization Address [facility] Co de Phone Number [facility] [address] [place] [address], * Total Iron Binding Capacity (02/03/2021 1:49 PM EDT) TIBC 371 250 - 450 ug/dL 02/03/2021 2:57 PM EDT [facility] 02/03/2021 1:49 PM EDT 02/03/2021 1:57 PM EDT Clara Holbrook APRN LAB BLOOD ORDERABLES Performing Organization Address [facility]/ZIP Co de Phone Number [facility] [address] [place] [address], * Iron (02/03/2021 1:49 PM EDT) Iron 84 50 - 175 ug/dL 02/03/2021 2:57 PM EDT [facility] 02/03/2021 1:49 PM EDT 02/03/2021 1:57 PM EDT Clara Holbrook APRN LAB BLOOD ORDERABLES Performing Organization Address [facility]/ZIP Co de Phone Number [facility] [address] [place] [address], * Ferritin (02/03/2021 1:49 PM EDT) Ferritin 37 9 - 246 ng/mL 02/03/2021 2:57 PM EDT [facility] 02/03/2021 1:49 PM EDT 02/03/2021 1:57 PM EDT Clara Holbrookluana IVEY LAB BLOOD ORDERABLES Performing Organization Address [facility] Co wa Phone Number [facility] [address] [place] [address], * Vitamin D 25 hydroxy (02/03/2021 1:49 PM EDT) Pathologist [facility] VITAMIN D, 25-HYDROXY 47.3 30.0 - 100.0 ng/mL 02/03/2021 2:39 PM EDT [facility] 02/03/2021 1:49 PM EDT 02/03/2021 1:57 PM EDT Clara Yusef OPERATIONAL INTELLIGENCE OFFICER LAB BLOOD ORDERABLES Performing Organization Address [facility] Phone Number [facility] [address] * Transferrin (02/03/2021 1:49 PM EDT) Pathologist [facility] Transferrin 272 200 - 370 MG/DL 02/03/2021 2:57 PM EDT [facility] 02/03/2021 1:49 PM EDT 02/03/2021 1:57 PM EDT Clara Holbrook OPERATIONAL INTELLIGENCE OFFICER LAB BLOOD ORDERABLES Performing Organization Address [facility] Phone Number [facility] [address] * (ABNORMAL) Comprehensive metabolic panel (02/03/2021 1:49 PM EDT) Globulin, Total 3.7 2.4 - 4.8 g/dL 02/03/2021 2:57 PM EDT [facility] A/G Ratio 1.0 0.6 - 1.6 02/03/2021 2:57 PM EDT [facility] Calcium 9.2 8.5 - 10.1 mg/dL 02/03/2021 2:57 PM EDT [facility] Chloride 113(H) 98 - 107 mmol/L 02/03/2021 2:57 PM EDT [facility] CO2 24 21 - 32 mmol/L 02/03/2021 2:57 PM EDT [facility] Creatinine 1.40(H) 0.60 - 1.30 MG/DL 02/03/2021 2:57 PM EDT [facility] Potassium 4.3 3.6 - 5.2 mmol/L 02/03/2021 2:57 PM EDT [facility] Sodium 141 133 - 144 mmol/L 02/03/2021 2:57 PM T [facility] Albumin 3.6 3.4 - 5.0 g/dL 02/03/2021 2:57 PM T [facility] Alkaline Phosphatase 101 45 - 117 U/L 02/03/2021 2:57 PM T [facility] Total Bilirubin 0.20 0.00 - 1.00 MG/DL 02/03/2021 2:57 PM T [facility] ALT (SGPT) 20 12 - 78 U/L 02/03/2021 2:57 PM T [facility] Total Protein 7.3 6.4 - 8.4 g/dL 02/03/2021 2:57 PM T [facility] AST 24 15 - 37 U/L 02/03/2021 2:57 PM T [facility] BUN 25(H) 7 - 18 MG/DL 02/03/2021 2:57 PM [facility] Glucose 93 70 - 110 MG/DL 02/03/2021 2:57 PM [facility] 02/03/2021 1:49 PM EDT 02/03/2021 1:57 PM EDT Clara Holbrook APRN LAB BLOOD ORDERABLES [facility] [address] * (ABNORMAL) GFR CALCULATED (02/03/2021 1:36 PM EDT) eGFR 40.1(L) 60.0 - 200.0 ML/MIN 02/03/2021 2:57 PM EDT [facility] 02/03/2021 1:36 PM EDT 02/03/2021 1:36 PM EDT Clara Holbrook LONI LAB CHG PERFORMABLES [facility] [address] documented in this encounter Visit Diagnoses Diagnosis Malignant neoplasm of unspecified site of right female breast Estrogen receptor positive status (ER+) Estrogen receptor positive status [ER+] Vitamin B12 deficiency anemia, unspecified Iron deficiency anemia, unspecified Solitary pulmonary nodule Other buttermaker (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 custodial (current) use of aromatase inhibitors Acquired absence of right breast and nipple Family history of malignant neoplasm of breast custodial (current) use of opiate analgesic Other hyperlipidemia Essential (primary) hypertension Unspecified essential hypertension Gastro-esophageal reflux disease without esophagitis Spondylosis without myelopathy or radiculopathy, lumbosacral region Other specified disorders of middle ear and mastoid, unspecified ear Segmental and somatic dysfunction of head region Myalgia, unspecified site Personal history of other infectious and parasitic diseases Latex allergy status Allergy to other foods Bee allergy status Personal history of nicotine dependence documented in this encounter Care Teams Wildlife Refuge Specialist Relationship Specialty Start Date End Date Ricardo Contreras MD [address] [place] [address] PCP - General documented as of this encounter
--- OUTSIDE RECORDS SUMMARY | 2024-08-18 13:13 | XMS_ITS | Encounter Summary ---
Author Organization [facility] nter Address [address] [place], [place] [id number] [place], [place] [address] Care Team Providers Care Wire Twister Name Role Phone Ricardo Contreras MD Primary Care Provider + Encounter Details Date Type Department Care Team (Latest Contact Info) Description 09/10/2020 12:01 AM EST - 10/10/2020 11:59 PM [facility] Hospital Encounter PMC CONVERSION OUTPATIENT [address] [place] [address] Jalil Marie MD [address] [place] [phone] Malignant neoplasm of unspecified site of right female breast (CMS/HCC); Estrogen receptor positive status (ER+); Acquired absence of right breast and nipple; Family history of malignant neoplasm of breast; Personal history of nicotine dependence; Other assisted (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; termite technician (current) use of opiate analgesic; Other hyperlipidemia; Essential (primary) hypertension; Gastro-esophageal reflux disease without esophagitis; Spondylosis without myelopathy or radiculopathy, lumbosacral region; Personal history of other infectious and parasitic diseases; Other specified disorders of middle ear and mastoid, unspecified ear; Myalgia, unspecified site; Segmental and somatic dysfunction of head region; Allergic rhinitis, unspecified; Latex allergy status; Allergy to other foods; Other nonmedicinal substance allergy status; Bee allergy status Discharge Disposition: Home or Self [...] Date/Time Associated Diagnosis Comments GFR CALCULATED Routine 09/16/2020 11:17 AM EST CBC WITH AUTO DIFFERENTIAL Routine 09/16/2020 11:17 AM EST ESTRADIOL Routine 09/16/2020 11:17 AM EST LUTEINIZING HORMONE Routine 09/16/2020 1 1:17 AM EST FOLLICLE STIMULATING HORMONE Routine 09/16/2020 11:17 AM EST COMPREHENSIVE METABOLIC PANEL Routine 09/16/2020 11:17 AM EST documented in this encounter Results * (ABNORMAL) GFR CALCULATED (09/16/2020 11:17 AM EST) eGFR 48.0(L) 60.0 - 200.0 ML/MIN 09/16/2020 12:40 PM EST [facility] 09/16/2020 11:1 7 AM EST 09/16/2020 11:17 AM EST Jalil Marie MD LAB CHG PERFORMABLE S Performing Organization Address City/State/[facility] Co de Phone Number [facility] [address] * (ABNORMAL) CBC auto differential (09/16/2020 11:17 AM EST) Platelets 245 122 - 454 K/ul 09/16/2020 12:06 PM EST [facility] RBC 5.010 3.450 - 5.400 M/ul 09/16/2020 12:06 PM EST [facility] MCV 79.5 78.2 - 101.8 fl 09/16/2020 12:06 PM EST [facility] MCH 25.0(L) 26.4 - 33.3 pg 09/16/2020 12:06 PM EST [facility] MCHC 31.4(L) 32.5 - 35.3 g/dL 09/16/2020 12:06 PM EST [facility] RDW 15.0 10.1 - 16.2 % 09/16/2020 12:06 PM EST [facility] MPV 8.6 6.4 - 10.4 fl 09/16/2020 12:06 PM EST [facility] Neutrophils % 43.2 43.0 - 83.0 % 09/16/2020 12:06 PM EST [facility] Neutrophils Absolute 3.5 2.7 - 6.9 K/ul 09/16/2020 12:06 PM EST [facility] Auto WBC 8.20 3.00 - 11.30 K/ul 09/16/2020 12:06 PM EST [facility] nRBC 0.00 09/16/2020 12:07 PM EST [facility] Basophils % 1.0 0.0 - 2.0 % 09/16/2020 12:06 PM EST [facility] Basophils Absolute 0.1 0.0 - 0.2 K/ul 09/16/2020 12:06 PM EST [facility] Eosinophils % 2.7 0.0 - 9.0 % 09/16/2020 12:06 PM EST [facility] Eosinophils Absolute 0.2 0.0 - 0.9 K/ul 09/16/2020 12:06 PM EST [facility] Lymphocytes % 46.1(H) 10.0 - 42.0 % 09/16/2020 12:06 PM EST [facility] Lymphocytes Absolute 3.8 0.4 - 3.9 K/ul 09/16/2020 12:06 PM EST [facility] Monocytes % 7.0 1.0 - 14.0 % 09/16/2020 12:06 PM EST [facility] Monocytes Absolute 0.6 0.2 - 0.9 K/ul 09/16/2020 12:06 PM EST [facility] Hematocrit 39.8 29.9 - 45.5 % 09/16/2020 12:06 PM EST [facility] Hemoglobin 12.5 10.0 - 16.0 gm/dl 09/16/2020 12:06 PM EST [facility] 09/16/2020 11:1 7 AM EST 09/16/2020 11:56 AM EST Jalil Marie MD LAB BLOOD ORDERABLE S [facility] [address] [place] [address], * Estradiol (09/16/2020 11:17 AM EST) Estradiol 39.1 0.0 - 367.2 pg/mL 09/16/2020 12:40 PM EST [facility] 09/16/2020 11:1 7 AM EST 09/16/2020 11:56 AM EST Jalil Marie MD LAB BLOOD ORDERABLE S Performing Organization Address City/[facility] Co de Phone Number [facility] [address] [place] [address], * Luteinizing hormone (09/16/2020 11:17 AM EST) Luteinizing Hormone 37.3 mIU/ml 09/16/2020 12:40 PM EST [facility] 09/16/2020 11:1 7 AM EST 09/16/2020 11:56 AM EST Jalil Marie MD LAB BLOOD ORDERABLE S Performing Organization Address City/[facility] Co de Phone Number [facility] [address] [place] [address], [place] * Follicle stimulating hormone (09/16/2020 11:17 AM EST) Follicle Stimulating Hormone 35.5 mIU/ml 09/16/2020 12:40 PM EST [facility] 09/16/2020 11:1 7 AM EST 09/16/2020 11:56 AM EST Jalil Marie MD LAB BLOOD ORDERABLE S Performing Organization Address City/[facility]/ZIP Co de Phone Number [facility] [address] [place] [address], * (ABNORMAL) Comprehensive metabolic panel (09/16/2020 11:17 AM EST) Globulin, Total 4.5 2.4 - 4.8 g/dL 09/16/2020 12:40 PM EST [facility] A/G Ratio 0.8 0.6 - 1.6 09/16/2020 12:40 PM EST [facility] Calcium 9.5 8.5 - 10.1 mg/dL 09/16/2020 12:40 PM EST [facility] Chloride 105 98 - 107 mmol/L 09/16/2020 12:40 PM EST [facility] CO2 27 21 - 32 mmol/L 09/16/2020 12:40 PM EST [facility] Creatinine 1.20 0.60 - 1.30 MG/DL 09/16/2020 12:40 PM EST [facility] Potassium 3.7 3.6 - 5.2 mmol/L 09/16/2020 12:40 PM EST [facility] Sodium 138 133 - 144 mmol/L 09/16/2020 12:40 PM EST [facility] Albumin 3.4 3.4 - 5.0 g/dL 09/16/2020 12:40 PM EST [facility] Alkaline Phosphatase 133(H) 45 - 117 U/L 09/16/2020 12:40 PM EST [facility] Total Bilirubin 0.30 0.00 - 1.00 MG/DL 09/16/2020 12:40 PM EST [facility] ALT (SGPT) 18 12 - 78 U/L 09/16/2020 12:40 PM EST [facility] Total Protein 7.9 6.4 - 8.4 g/dL 09/16/2020 12:40 PM EST [facility] AST 18 15 - 37 U/L 09/16/2020 12:40 PM EST [facility] BUN 9 7 - 18 MG/DL 09/16/2020 12:40 PM EST [facility] Glucose 171(H) 70 - 110 MG/DL 09/16/2020 12:40 PM EST [facility] 09/16/2020 11:1 7 AM EST 09/16/2020 11:56 AM EST Jalil Marie MD LAB BLOOD ORDERABLE S [facility] [address] documented in this encounter Visit Diagnoses Diagnosis Malignant neoplasm of unspecified site of right female breast Estrogen receptor positive status (ER+) Estrogen receptor positive status [ER+] Acquired absence of right breast and nipple Family history of malignant neoplasm of breast Personal history of nicotine dependence Other assisted (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 senior care (current) use of opiate analgesic Other hyperlipidemia Essential (primary) hypertension Unspecified essential hypertension Gastro-esophageal reflux disease without esophagitis Spondylosis without myelopathy or radiculopathy, lumbosacral region Personal history of other infectious and parasitic diseases Other specified disorders of middle ear and mastoid, unspecified ear Myalgia, unspecified site Segmental and somatic dysfunction of head region Allergic rhinitis, unspecified Latex allergy status Allergy to other foods Other nonmedicinal substance allergy status Bee allergy status documented in this encounter Care Teams Wire Twister Relationship Specialty Start Date End Date Ricardo Contreras MD [address] [place] [id number] PCP - General documented as of this encounter
--- OUTSIDE RECORDS SUMMARY | 2024-08-18 13:13 | XMS_ITS | Encounter Summary ---
Author Organization [facility] nter Address [address] [place], [place] [id number] [place] [address] Care Team Providers Care Art Objects Repairer Name Role Phone Ricardo Contreras MD Primary Care Provider + Encounter Details Date Type Department Care Team (Latest Contact Info) Description 11/15/2020 1:56 PM EST - 11/15/2020 11:59 PM EST Hospital Encounter PMC CONVERSION OUTPATIENT [address] [place] [address] Gregory Forrest MD [address] [place] [phone] Encounter for breast reconstruction following mastectomy Discharge [...] mastectomy documented in this encounter Care Teams Art Objects Repairer Relationship Specialty Start Date End Date Ricardo Contreras MD [address] [place] [address] PCP - General documented as of this encounter
--- OUTSIDE RECORDS SUMMARY | 2024-08-18 13:13 | XMS_ITS | Encounter Summary ---
Author Organization [facility] nter Address [address] [place], [place] [phone] [place], [place] [id number] Care Team Providers Care Insulation Estimator Name Role Phone Ricardo Contreras MD Primary Care Provider + Encounter Details Date Type Department Care Team (Late st Contact Info) Description 05/05/2021 12:35 PM EDT - 05/18/2021 11:59 PM EDT Hospital Encounter PMC CONVERSION OUTPATIENT [address] [place] [address] Joe Brewster MD [address] [place] [phone] Social History Tobacco Use Types Packs/Day Years [...] on filedocumented in this encounter Care Teams Insulation Estimator Relationship Specialty Start Date End Date Ricardo Contreras MD [address] [place] [address] PCP - General documented as of this encounter
--- OUTSIDE RECORDS SUMMARY | 2024-08-18 13:13 | XMS_ITS | Encounter Summary ---
Author Organization [facility] nter Address [address] [place], [place] [phone] [place] [address] Care Team Providers Care E Commerce Manager Name Role Phone Ricardo Contreras MD Primary Care Provider + Encounter Details Date Type Department Care Team (Late st Contact Info) Description 12/09/2020 12:01 AM EDT - 01/07/2021 11:59 PM EDT Hospital Encounter PMC CONVERSION OUTPATIENT [address] [place] [phone] Clara Holbrook, LONI [address] [place] [phone] Social History Tobacco Use Types Packs/Day Years [...] on filedocumented in this encounter Care Teams E Commerce Manager Relationship Specialty Start Date End Date Ricardo Contreras MD [address] [place] [address] PCP - General documented as of this encounter
--- OUTSIDE RECORDS SUMMARY | 2024-08-18 13:13 | XMS_ITS | Encounter Summary ---
Author Organization [facility] nter Address [address] [place] [address] Care Team Providers Care Transfer Station Operator Name Role Phone Ricardo Contreras MD Primary Care Provider + Encounter Details Date Type Department Care Team (Latest Contact Info) Description 01/28/2021 9:23 AM EDT - 01/28/2021 11:59 PM EDT Hospital Encounter PMC CONVERSION OUTPATIENT [address] [place] [address] Gregory Forrest MD [address] [place] [phone] Encounter for other specified surgical aftercare Discharge [...] aftercare documented in this encounter Care Teams Transfer Station Operator Relationship Specialty Start Date End Date Ricardo Contreras MD [address] [place] [address] PCP - General documented as of this encounter
--- OUTSIDE RECORDS SUMMARY | 2024-08-18 13:13 | XMS_ITS | Encounter Summary ---
Author Organization [facility] nter Address [address] [place], [place] [id number] [place] [address] Care Team Providers Care High Speed Warper Tender Name Role Phone Ricardo Contreras MD Primary Care Provider + Encounter Details Date Type Department Care Team (Latest Contact Info) Description 01/13/2021 9:00 AM EDT - 01/13/2021 11:59 PM EDT Hospital Encounter PMC CONVERSION OUTPATIENT [address] [place] [address] Gregory Forrest MD [address] [place] [phone] Encounter for breast reconstruction following mastectomy; Personal history of malignant neoplasm of breast; Acquired absence of right breast and nipple; Restless legs syndrome; Sleep apnea, unspecified; Patient's noncompliance with other medical treatment and regimen; Essential (primary) hypertension; Hyperlipidemia, unspecified; Type 2 diabetes mellitus with diabetic neuropathy, unspecified (CMS/HCC); Obesity, unspecified; Personal history of nicotine dependence; long term care administrator (current) use of oral hypoglycemic drugs; Body mass index (BMI) 34.0-34.9, adult Discharge Disposition: Home or Self Care Social [...] Associated Diagnosis Comments POCT GLUCOSE PERFORMABLE Routine 01/13/2021 9:35 AM EDT SARS COV2, LUCRECIA PERFORMABLE Routine 01/09/2021 6:04 PM EDT documented in this encounter Results * (ABNORMAL) POCT glucose meter (01/13/2021 9:35 AM EDT) Glucose 140(H) 70 - 110 MG/DL 01/13/2021 9:35 AM EDT [facility] 01/13/2021 9:35 AM EDT 01/13/2021 9:52 AM EDT Gregory Forrest MD LAB POINT OF CARE T EST DOCKED DEVICE UNSOLICITED RESULTS Performing Organization Address [facility] Co de Phone Number [facility] [address] [place] [address] * SARS COV2, LUCRECIA PERFORMABLE (01/09/2021 6:04 PM EDT) SARS COVID LUCRECIA NEGATIVE 01/09/2021 6:04 PM EDT [facility] 01/09/2021 6:04 PM EDT 01/09/2021 6:16 PM EDT Gregory Forrest MD LAB POINT OF CARE T EST DOCKED DEVICE UNSOLICITED RESULTS Performing Organization Address City/[facility] Phone Number [facility] [address] documented in this encounter Visit Diagnoses Diagnosis Encounter for breast reconstruction following mastectomy Personal history of malignant neoplasm of breast Acquired absence of right breast and nipple Restless legs syndrome Restless legs syndrome (RLS) Sleep apnea, unspecified Patient's noncompliance with other medical treatment and regimen Essential (primary) hypertension Unspecified essential hypertension Hyperlipidemia, unspecified Type 2 diabetes mellitus with diabetic neuropathy, unspecified Obesity, unspecified Personal history of nicotine dependence [facility] (current) use of oral hypoglycemic drugs Body mass index (BMI) 34.0-34.9, adult documented in this encounter Care Teams High Speed Warper Tender Relationship Specialty Start Date End Date Ricardo Contreras MD [address] [id number] PCP - General documented as of this encounter
--- OUTSIDE RECORDS SUMMARY | 2024-08-18 13:13 | XMS_ITS | Encounter Summary ---
Author Organization [facility] nter Address [address] [place], [place] [id number] [place] [address] Care Team Providers Care Sequins Winder Name Role Phone Ricardo Contreras MD Primary Care Provider + Encounter Details Date Type Department Care Team (Latest Contact Info) Description 11/08/2020 12:05 AM EST - 12/08/2020 11:59 PM EDT Hospital Encounter PMC CONVERSION OUTPATIENT [address] [place] [address] Clara Holbrook, LONI [address] [place] [phone] Malignant neoplasm of unspecified site of right female breast (CMS/HCC); Estrogen receptor positive status (ER+); Personal history of nicotine dependence; Family history of malignant neoplasm of breast; Iron deficiency anemia, unspecified; Vitamin B12 deficiency anemia, unspecified; Other senior care (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; detention (current) use of aromatase inhibitors; detention (current) use of opiate analgesic; Acquired absence of right breast and nipple; Other hyperlipidemia; Essential (primary) hypertension; Gastro-esophageal reflux disease without esophagitis; Spondylosis without myelopathy or radiculopathy, lumbosacral region; Other specified disorders of middle ear and mastoid, unspecified ear; Allergic rhinitis, unspecified; Myalgia, unspecified site; Segmental and somatic dysfunction of head region; Latex allergy status; Allergy to other foods; Other nonmedicinal substance allergy status; Bee allergy status; Arthrodesis status; Type 2 diabetes mellitus without complications (CMS/HCC); Personal history of other infectious and parasitic diseases; Personal history of pneumonia (recurrent); Major depressive disorder, single episode, unspecified Discharge Disposition: Home or Self Care [...] Date/Time Associated Diagnosis Comments GFR CALCULATED Routine 11/11/2020 11:25 AM EST TOTAL IRON BINDING CAPACITY Routine 11/11/2020 11:25 AM EST CBC WITH AUTO DIFFERENTIAL Routine 11/11/2020 11:25 AM EST VITAMIN D, TOTAL Routine 11/11/2020 11:2 5 AM EST TRANSFERRIN Routine 11/11/2020 11:25 AM EST IRON Routine 11/11/2020 11:25 AM EST FOLATE Routine 11/11/2020 11:25 AM EST FERRITIN Routine 11/11/2020 11:25 AM EST VITAMIN B12 Routine 11/11/2020 11:25 AM EST COMPREHENSIVE METABOLIC PANEL Routine 11/11/2020 11:25 AM EST documented in this encounter Results * (ABNORMAL) GFR CALCULATED (11/11/2020 11:25 AM EST) eGFR 37.1(L) 60.0 - 200.0 ML/MIN 11/11/2020 12:05 PM EST [facility] 11/11/2020 11:2 5 AM EST 11/11/2020 11:25 AM EST Clara Holbrook APRN LAB CHG PERFORMABLES Performing Organization Address [facility] Co de Phone Number [facility] [address] * (ABNORMAL) Vitamin B12 (11/11/2020 11:25 AM EST) Vitamin B-12 195(L) 254 - 1,320 pg/mL 11/11/2020 1:36 PM EST [facility] 11/11/2020 11:2 5 AM EST 11/11/2020 12:39 PM EST Clara Holbroko APRN LAB BLOOD ORDERABLES Performing Organization Address [facility] Phone Number [facility] [address] [place] [address], * Total Iron Binding Capacity (11/11/2020 11:25 AM EST) TIBC 390 250 - 450 ug/dL 11/11/2020 1:36 PM EST [facility] 11/11/2020 11:2 5 AM EST 11/11/2020 12:39 PM EST Clara Holbrook APRN LAB BLOOD ORDERABLES Performing Organization Address [facility] Number [facility] [address] [place] [address], [place] * Iron (11/11/2020 11:25 AM EST) Iron 61 50 - 175 ug/dL 11/11/2020 1:36 PM EST [facility] 11/11/2020 11:2 5 AM EST 11/11/2020 12:39 PM EST Clara Holbrook ERP ENGINEER LAB BLOOD ORDERABLES Performing Organization Address [facility] Phone Number [facility] [address] [place] [address], [place] * Folate (11/11/2020 11:25 AM EST) Folate 12.0 3.1 - 17.5 ng/mL 11/11/2020 1:36 PM EST [facility] 11/11/2020 11:2 5 AM EST 11/11/2020 12:39 PM EST Clara Holbrook ERP ENGINEER LAB BLOOD ORDERABLES Performing Organization Address [facility] Phone Number [facility] [address] [place] [address], * Ferritin (11/11/2020 11:25 AM EST) Ferritin 10 9 - 246 ng/mL 11/11/2020 1:36 PM EST [facility] 11/11/2020 11:2 5 AM EST 11/11/2020 12:39 PM EST Clara Holbrook ERP ENGINEER LAB BLOOD ORDERABLES Performing Organization Address [facility] [address] [place] [address], [place] * Transferrin (11/11/2020 11:25 AM EST) Transferrin 300 200 - 370 MG/DL 11/11/2020 1:36 PM EST [facility] 11/11/2020 11:2 5 AM EST 11/11/2020 12:39 PM EST Clara Holbrook ERP ENGINEER LAB BLOOD ORDERABLES Performing Organization Address [facility] Phone Number [facility] [place] [address], * (ABNORMAL) CBC auto differential (11/11/2020 11:25 AM EST) Platelets 210 122 - 454 K/ul 11/11/2020 11:51 AM EST [facility] RBC 4.800 3.450 - 5.400 M/ul 11/11/2020 11:51 AM EST [facility] MCV 77.1(L) 78.2 - 101.8 fl 11/11/2020 11:51 AM EST [facility] MCH 25.4(L) 26.4 - 33.3 pg 11/11/2020 11:51 AM EST [facility] MCHC 33.0 32.5 - 35.3 g/dL 11/11/2020 11:51 AM EST [facility] RDW 14.6 10.1 - 16.2 % 11/11/2020 11:51 AM EST [facility] MPV 8.6 6.4 - 10.4 fl 11/11/2020 11:51 AM EST [facility] Neutrophils % 42.6(L) 43.0 - 83.0 % 11/11/2020 11:51 AM EST [facility] Neutrophils Absolute 3.1 2.7 - 6.9 K/ul 11/11/2020 11:51 AM EST [facility] Auto WBC 7.30 3.00 - 11.30 K/ul 11/11/2020 11:51 AM EST [facility] nRBC 0.10 11/11/2020 11:51 AM EST [facility] Basophils % 0.7 0.0 - 2.0 % 11/11/2020 11:51 AM EST [facility] Basophils Absolute 0.1 0.0 - 0.2 K/ul 11/11/2020 11:51 AM EST [facility] Eosinophils % 1.5 0.0 - 9.0 % 11/11/2020 11:51 AM EST [facility] Eosinophils Absolute 0.1 0.0 - 0.9 K/ul 11/11/2020 11:51 AM EST [facility] Lymphocytes % 48.5(H) 10.0 - 42.0 % 11/11/2020 11:51 AM EST [facility] Lymphocytes Absolute 3.5 0.4 - 3.9 K/ul 11/11/2020 11:51 AM EST [facility] Monocytes % 6.7 1.0 - 14.0 % 11/11/2020 11:51 AM EST [facility] Monocytes Absolute 0.5 0.2 - 0.6 K/ul 11/11/2020 11:51 AM EST [facility] Hematocrit 37.0 29.9 - 45.5 % 11/11/2020 11:51 AM EST [facility] Hemoglobin 12.2 10.0 - 16.0 gm/dl 11/11/2020 11:51 AM EST [facility] 11/11/2020 11:2 5 AM EST 11/11/2020 11:34 AM EST Clara Holbrook ERP ENGINEER LAB BLOOD ORDERABLES Performing Organization Address City/[facility]/ZIP Co de Phone Number [facility] [address] * Vitamin D 25 hydroxy (11/11/2020 11:25 AM EST) Pathologist [facility] VITAMIN D, 25-HYDROXY 52.2 30.0 - 100.0 ng/mL 11/11/2020 12:09 PM EST [facility] 11/11/2020 11:2 5 AM EST 11/11/2020 11:34 AM EST Clara Holbrook ERP ENGINEER LAB BLOOD ORDERABLES Performing Organization Address [facility] Phone Number [facility] [address] * (ABNORMAL) Comprehensive metabolic panel (11/11/2020 11:25 AM EST) Pathologist [facility] Globulin, Total 3.9 2.4 - 4.8 g/dL 11/11/2020 12:05 PM EST [facility] A/G Ratio 0.9 0.6 - 1.6 11/11/2020 12:05 PM EST [facility] Calcium 9.6 8.5 - 10.1 mg/dL 11/11/2020 12:05 PM EST [facility] Chloride 109(H) 98 - 107 mmol/L 11/11/2020 12:05 PM EST [facility] CO2 26 21 - 32 mmol/L 11/11/2020 12:05 PM EST [facility] Creatinine 1.50(H) 0.60 - 1.30 MG/DL 11/11/2020 12:05 PM EST [facility] Potassium 3.7 3.6 - 5.2 mmol/L 11/11/2020 12:05 PM EST [facility] Sodium 138 133 - 144 mmol/L 11/11/2020 12:05 PM EST [facility] Albumin 3.5 3.4 - 5.0 g/dL 11/11/2020 12:05 PM EST [facility] Alkaline Phosphatase 103 45 - 117 U/L 11/11/2020 12:05 PM EST [facility] Total Bilirubin 0.30 0.00 - 1.00 MG/DL 11/11/2020 12:05 PM EST [facility] ALT (SGPT) 20 12 - 78 U/L 11/11/2020 12:05 PM EST [facility] Total Protein 7.4 6.4 - 8.4 g/dL 11/11/2020 12:05 PM EST [facility] AST 15 15 - 37 U/L 11/11/2020 12:05 PM EST [facility] BUN 17 7 - 18 MG/DL 11/11/2020 12:05 PM EST [facility] Glucose 157(H) 70 - 110 MG/DL 11/11/2020 12:05 PM EST [facility] 11/11/2020 11:2 5 AM EST 11/11/2020 11:34 AM EST Clara Holbrook ERP ENGINEER LAB BLOOD ORDERABLES Performing Organization Address City/State/[facility] Co de Phone Number [facility] [address] documented in this encounter Visit Diagnoses Diagnosis Malignant neoplasm of unspecified site of right female breast Estrogen receptor positive status (ER+) Estrogen receptor positive status [ER+] Personal history of nicotine dependence Family history of malignant neoplasm of breast Iron deficiency anemia, unspecified Vitamin B12 deficiency anemia, unspecified Other senior care (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 detention (current) use of aromatase inhibitors detention (current) use of opiate analgesic Acquired absence of right breast and nipple Other hyperlipidemia Essential (primary) hypertension Unspecified essential hypertension Gastro-esophageal reflux disease without esophagitis Spondylosis without myelopathy or radiculopathy, lumbosacral region Other specified disorders of middle ear and mastoid, unspecified ear Allergic rhinitis, unspecified Myalgia, unspecified site Segmental and somatic dysfunction of head region Latex allergy status Allergy to other foods Other nonmedicinal substance allergy status Bee allergy status Arthrodesis status Type 2 diabetes mellitus without complications Personal history of other infectious and parasitic diseases Personal history of pneumonia (recurrent) Major depressive disorder, single episode, unspecified documented in this encounter Care Teams Sequins Winder Relationship Specialty Start Date End Date Ricardo Contreras MD [address] [place] [address] PCP - General documented as of this encounter
--- OUTSIDE RECORDS SUMMARY | 2024-08-18 13:13 | XMS_ITS | Encounter Summary ---
Author Organization [facility] nter Address [address] [place] [address] Care Team Providers Care Lock And Dam Repairer Name Role Phone Ricardo Contreras MD Primary Care Provider + Encounter Details Date Type Department Care Team (Latest Contact Info) Description 03/02/2021 9:42 AM EDT - 03/02/2021 11:59 PM EDT Hospital Encounter PMC CONVERSION OUTPATIENT [address] [place] [address] Gregory Forrest MD [address] [place] [phone] Encounter for other specified surgical aftercare Discharge [...] aftercare documented in this encounter Care Teams Lock And Dam Repairer Relationship Specialty Start Date End Date Ricardo Contreras MD [address] [place] [address] PCP - General documented as of this encounter
--- OUTSIDE RECORDS SUMMARY | 2024-08-18 13:13 | XMS_ITS | Encounter Summary ---
Author Organization [facility] nter Address [address] [place], [place] [id number] [place] [address] Care Team Providers Care Nozzle Cement Sprayer Helper Name Role Phone Ricardo Contreras MD Primary Care Provider + Encounter Details Date Type Department Care Team (Late st Contact Info) Description 10/11/2020 12:06 AM EST - 11/07/2020 11:59 PM EST Hospital Encounter PMC CONVERSION OUTPATIENT [address] [place] [address] Catie Trevino MD [address] [place] [phone] Social History Tobacco Use Types Packs/Day Years [...] on filedocumented in this encounter Care Teams Nozzle Cement Sprayer Helper Relationship Specialty Start Date End Date Ricardo Contreras MD [address] [place] [address] PCP - General documented as of this encounter
--- OUTSIDE RECORDS SUMMARY | 2024-08-18 13:13 | XMS_ITS | Encounter Summary ---
Author Organization [facility] nter Address [address] [place] [address] Care Team Providers Care Director Digital Marketing Name Role Phone Ricardo Contreras MD Primary Care Provider + Encounter Details Date Type Department Care Team (Late st Contact Info) Description 05/12/2021 2:59 PM EDT - 05/30/2021 11:59 PM EDT Hospital Encounter PMC CONVERSION OUTPATIENT [address] [place] [address] Gregory Forrest MD [address] [place] [phone] Social History Tobacco Use Types Packs/Day Years [...] on filedocumented in this encounter Care Teams Director Digital Marketing Relationship Specialty Start Date End Date Ricardo Contreras MD [address] [place] [address] PCP - General documented as of this encounter
--- OUTSIDE RECORDS SUMMARY | 2024-08-18 13:13 | XMS_ITS | Encounter Summary ---
Author Organization [facility] nter Address [address] [place], [place] [phone] [place], [place] [phone] Care Team Providers Care Sandwich Board Carrier Name Role Phone Ricardo Contreras MD Primary Care Provider + Encounter Details Date Type Department Care Team (Late st Contact Info) Description 05/10/2021 11:21 AM EDT - 05/10/2021 11:59 PM EDT Hospital Encounter PMC CONVERSION OUTPATIENT [address] [place] [address] Barbie Jorgensen APRN [address] [place] [phone] Social History Tobacco Use Types Packs/Day Years [...] on filedocumented in this encounter Care Teams Sandwich Board Carrier Relationship Specialty Start Date End Date Ricardo Contreras MD [address] [place] [address] PCP - General documented as of this encounter
--- OUTSIDE RECORDS SUMMARY | 2024-08-18 13:13 | XMS_ITS | Encounter Summary ---
Author Organization [facility] nter Address [address] [place], [place] [id number] [place], [place] [address] Care Team Providers Care Service Manager Name Role Phone Ricardo Contreras MD Primary Care Provider + Encounter Details Date Type Department Care Team (Latest Contact Info) Description 02/11/2021 1:59 PM EDT - 02/11/2021 5:28 PM EDT Hospital Encounter PMC CONVERSION OUTPATIENT [address] [place] [address] [place], [address] [place] [phone] Dyspnea, unspecified; Urinary tract infection, site not specified; Dehydration; Type 2 diabetes mellitus without complications (CMS/HCC); Essential (primary) hypertension; Other chronic pain; Dorsalgia, unspecified; 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; Other fdc (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 Discharge Disposition: Home or [...] Procedure Name Priority Date/Time Associated Diagnosis Comments URINALYSIS WITH MICROSCOPIC Routine 02/11/2021 3:43 PM EDT URINE CULTURE Routine 02/11/2021 3:[address] CHEST ANGIOGRAM W AND/OR WO IV CONTRAST Routine 02/11/2021 3:40 PM EDT GFR CALCULATED Routine 02/11/2021 2:48 PM EDT CBC WITH AUTO DIFFERENTIAL Routine 02/11/2021 2:48 PM EDT TROPONIN (HIGH SENSITIVE) Routine 02/11/2021 2:48 PM EDT MAGNESIUM Routine 02/11/2021 2:48 PM EDT HEPATIC FUNCTION PANEL Routine 02/11/2021 2:48 PM EDT BASIC METABOLIC PANEL Routine 02/11/2021 2:48 PM EDT POCT B-TYPE NATRIURETIC PEPTIDE (BNP) PERFORMABLE Routine 02/11/2021 2:43 PM EDT XR CHEST 1 VIEW Routine 02/11/2021 2:28 PM EDT documented in this encounter Results * Urine culture (02/11/2021 3:43 PM EDT) Urine Culture FINAL NO GROWTH 02/13/2021 6:00 AM EDT [facility] 02/11/2021 3:43 PM EDT 02/11/2021 10:29 PM EDT [facility] [place] DO LAB MICROBIOLOGY - G ENERAL ORDERABLES [facility] [address] * (ABNORMAL) Urinalysis with microscopic (02/11/2021 3:43 PM EDT) RBC, Urine 2 0 - 4 /hpf 02/11/2021 4:37 PM EDT [facility] WBC, Urine 16(H) 0 - 5 /hpf 02/11/2021 4:37 PM T [facility] Squamous Epithelial, Urine 4 0 - 6 /hpf 02/11/2021 4:37 PM T [facility] Bacteria, Urine NEGATIVE /hpf 02/11/2021 4:37 PM T [facility] Hyaline Casts, Urine 1 0 - 4 /lpf 02/11/2021 4:37 PM T [facility] Color, Urine YELLOW 02/11/2021 4:37 PM T [facility] Clarity, Urine CLEAR 02/11/2021 4:37 PM T [facility] Glucose, Urine NEGATIVE mg/dL 02/11/2021 4:37 PM [facility] Bilirubin, Urine NEGATIVE 02/11/2021 4:37 PM [facility] Specific [place], Urine 1.012 1.006 - 1.035 02/11/2021 4:37 PM [facility] Blood, Urine NEGATIVE 02/11/2021 4:37 PM [facility] pH, Urine 7.0 5.0 - 9.0 02/11/2021 4:37 PM T [facility] Protein, Urine NEGATIVE mg/dL 02/11/2021 4:37 PM [facility] Urobilinogen, Urine 0.2 E.U./DL 02/11/2021 4:37 PM [facility] Nitrite, Urine NEGATIVE 02/11/2021 4:37 PM [facility] Leukocytes, Urine MODERATE(A) 02/11/2021 4:37 PM T [facility] 02/11/2021 3:43 PM EDT 02/11/2021 3:55 PM EDT [place] DO LAB URINE ORDERABLES [facility] [address] [place] [address], * CT chest angiogram w and/or wo IV contrast (02/11/2021 3:40 PM EDT) Anatomical Region Laterality Modality Body, Chest Computed Tomogra phy 02/11/2021 3:40 PM EDT Narrative 02/11/2021 4:30 PM EDT CTA CHEST: 02/11/2021 Radiation Optimization: All CT scans at this facility use at least one of these dose optimization techniques: automated exposure control; mA and/or kV adjustment per patient size (includes targeted exams where dose is matched to clinical indication); or iterative reconstruction. CLINICAL INDICATION: pe_protocol: pe protocol ERA Emergency ??Department Room 05 COMPARISON: 12/08/2020. TECHNIQUE: CT of the Thorax after intravenous contrast administration, pulmonary embolus protocol. ?? VESSELS: ??Opacification of the pulmonary arteries is diagnostic to the level of the segmental pulmonary arteries. There are no pulmonary arterial filling defects. ??Normal caliber pulmonary arteries. No evidence of right heart strain. ??Aorta and coronary arteries are without acute finding. Atherosclerotic disease noted. HEART: ??Heart size is mildly enlarged. No pericardial effusion. ?? MEDIASTINUM: ??No adenopathy by size criteria. Borderline sized lymph nodes noted. LUNGS, PLEURA AND AIRWAYS: Scattered areas of atelectasis. No focal consolidation/pneumonia. No suspicious mass No pleural effusion. ??The central airways are patent. UPPER ABDOMEN: ??Limited evaluation of the upper abdomen demonstrates no acute abnormalities. Atherosclerotic disease. BONES: Review of bone windows demonstrates no acute finding. ??Degenerative change. Impression: 1. Negative study for acute or chronic pulmonary embolus. ??2. Scattered areas of atelectasis. No focal consolidation/pneumonia appreciated. ??3. Other mild chronic findings as noted. Report Sign Date: 02/11/2021 4:28 PM, Electronically Signed By: ??Roverto Rucker MD Procedure Note Roverto Rucker MD - 11/25/2021 CTA CHEST: 02/11/2021 Radiation Optimization: All CT scans at this facility use at least one ofthese dose optimization techniques: automated exposure control; mA and/orkV adjustment per patient size (includes targeted exams where dose ismatched to clinical indication); or iterative reconstruction. CLINICAL INDICATION: pe_protocol: pe protocol Emergency Department Room 05 COMPARISON: 12/08/2020. TECHNIQUE: CT of the Thorax after intravenous contrast administration,pulmonary embolus protocol. VESSELS: Opacification of the pulmonary arteries is diagnostic to thelevel of the segmental pulmonary arteries. There are no pulmonary arterialfilling defects. Normal caliber pulmonary arteries. No evidence of rightheart strain. Aorta and coronary arteries are without acute finding.Atherosclerotic disease noted. HEART: Heart size is mildly enlarged. No pericardial effusion. MEDIASTINUM: No adenopathy by size criteria. Borderline sized lymphnodes noted. LUNGS, PLEURA AND AIRWAYS: Scattered areas of atelectasis. No focalconsolidation/pneumonia. No suspicious mass No pleural effusion. Thecentral airways are patent. UPPER ABDOMEN: Limited evaluation of the upper abdomen demonstrates noacute abnormalities. Atherosclerotic disease. BONES: Review of bone windows demonstrates no acute finding. Degenerative change. Impression: 1. Negative study for acute or chronic pulmonary embolus. 2. Scattered areas of atelectasis. No focal consolidation/pneumoniaappreciated. 3. Other mild chronic findings as noted. Report Sign Date: 02/11/2021 4:28 PM, Electronically Signed By: Roverto Rucker MD [place] DO IMG CT PROCEDURES * (ABNORMAL) GFR CALCULATED (02/11/2021 2:48 PM EDT) [facility] eGFR 40.1(L) 60.0 - 200.0 ML/MIN 02/11/2021 3:32 PM EDT [facility] 02/11/2021 2:48 PM EDT 02/11/2021 2:48 PM EDT [place] DO LAB CHG PERFORMABLES [facility] [address] * (ABNORMAL) CBC auto differential (02/11/2021 2:48 PM EDT) [facility] Platelets 161 122 - 454 K/ul 02/11/2021 3:04 PM EDT [facility] RBC 4.410 3.450 - 5.400 M/ul 02/11/2021 3:04 PM EDT [facility] MCV 83.0 78.2 - 101.8 fl 02/11/2021 3:04 PM EDT [facility] MCH 27.5 26.4 - 33.3 pg 02/11/2021 3:04 PM EDT [facility] MCHC 33.2 32.5 - 35.3 g/dL 02/11/2021 3:04 PM EDT [facility] RDW 16.7(H) 10.1 - 16.2 % 02/11/2021 3:04 PM EDT [facility] MPV 8.6 6.4 - 10.4 fl 02/11/2021 3:04 PM EDT [facility] Neutrophils % 52.2 43.0 - 83.0 % 02/11/2021 3:04 PM EDT [facility] Neutrophils Absolute 3.1 2.7 - 6.9 K/ul 02/11/2021 3:04 PM EDT [facility] Auto WBC 5.90 3.00 - 11.30 K/ul 02/11/2021 3:04 PM EDT [facility] nRBC 0.00 02/11/2021 3:04 PM T [facility] Basophils % 0.9 0.0 - 2.0 % 02/11/2021 3:04 PM EDT [facility] Basophils Absolute 0.1 0.0 - 0.2 K/ul 02/11/2021 3:04 PM EDT [facility] Eosinophils % 2.8 0.0 - 9.0 % 02/11/2021 3:04 PM EDT [facility] Eosinophils Absolute 0.2 0.0 - 0.9 K/ul 02/11/2021 3:04 PM EDT [facility] Lymphocytes % 38.9 10.0 - 42.0 % 02/11/2021 3:04 PM EDT [facility] Lymphocytes Absolute 2.3 0.4 - 3.9 K/ul 02/11/2021 3:04 PM EDT [facility] Monocytes % 5.2 1.0 - 14.0 % 02/11/2021 3:04 PM EDT [facility] Monocytes Absolute 0.3 0.2 - 0.6 K/ul 02/11/2021 3:04 PM EDT [facility] Hematocrit 36.6 29.9 - 45.5 % 02/11/2021 3:04 PM EDT [facility] Hemoglobin 12.1 10.0 - 16.0 gm/dl 02/11/2021 3:04 PM EDT [facility] 02/11/2021 2:48 PM EDT 02/11/2021 2:48 PM EDT [place] DO LAB BLOOD ORDERABLES Performing Organization Address City/[facility]/ZIP Co de Phone Number [facility] [address] * (ABNORMAL) Hepatic function panel (02/11/2021 2:48 PM EDT) Bilirubin, Direct 0.20 0.00 - 0.20 MG/DL 02/11/2021 3:32 PM EDT [facility] Albumin 3.3(L) 3.4 - 5.0 g/dL 02/11/2021 3:32 PM EDT [facility] Alkaline Phosphatase 95 45 - 117 U/L 02/11/2021 3:32 PM EDT [facility] Total Bilirubin 0.30 0.00 - 1.00 MG/DL 02/11/2021 3:32 PM EDT [facility] ALT (SGPT) 22 12 - 78 U/L 02/11/2021 3:32 PM EDT [facility] Total Protein 7.1 6.4 - 8.4 g/dL 02/11/2021 3:32 PM EDT [facility] AST 32 15 - 37 U/L 02/11/2021 3:32 PM EDT [facility] 02/11/2021 2:48 PM EDT 02/11/2021 2:48 PM EDT [place] DO LAB BLOOD ORDERABLES Performing Organization Address City/[facility] Co de Phone Number [facility] [address] * Magnesium (02/11/2021 2:48 PM EDT) Magnesium 2.0 1.7 - 2.4 MG/DL 02/11/2021 3:32 PM EDT [facility] 02/11/2021 2:48 PM EDT 02/11/2021 2:48 PM EDT Tendread [place] DO LAB BLOOD ORDERABLES Performing Organization Address City/[facility] Co de Phone Number [facility] [address] [place] [address], * Troponin I (02/11/2021 2:48 PM EDT) Pathologist [facility] Troponin, HS <0.015 0.000 - 0.045 ng/mL 02/11/2021 3:32 PM EDT [facility] 02/11/2021 2:48 PM EDT 02/11/2021 2:48 PM EDT [facility] [employer] LAB BLOOD ORDERABLES Performing Organization Address [facility] Co de Phone Number [facility] [address] [place] [address], * (ABNORMAL) Basic metabolic panel (02/11/2021 2:48 PM EDT) [facility] Calcium 9.1 8.5 - 10.1 mg/dL 02/11/2021 3:32 PM EDT [facility] Chloride 114(H) 98 - 107 mmol/L 02/11/2021 3:32 PM EDT [facility] CO2 21 21 - 32 mmol/L 02/11/2021 3:32 PM EDT [facility] Creatinine 1.40(H) 0.60 - 1.30 MG/DL 02/11/2021 3:32 PM EDT [facility] Potassium 5.3(H) 3.6 - 5.2 mmol/L 02/11/2021 3:32 PM EDT [facility] Sodium 139 133 - 144 mmol/L 02/11/2021 3:32 PM EDT [facility] BUN 31(H) 7 - 18 MG/DL 02/11/2021 3:32 PM EDT [facility] Glucose 122(H) 70 - 110 MG/DL 02/11/2021 3:32 PM EDT [facility] 02/11/2021 2:48 PM EDT 02/11/2021 2:48 PM EDT Tendread Henningant DO LAB BLOOD ORDERABLES Performing Organization Address [facility]/ZIP Co de Phone Number [facility] [address] [place] [address], * (ABNORMAL) POCT b-type natriuretic peptide (BNP) (02/11/2021 2:43 PM EDT) BNP, POC 641(H) 0 - 100 pg/mL 02/11/2021 2:43 PM EDT [facility] 02/11/2021 2:43 PM EDT 02/11/2021 2:55 PM EDT [place] DO POINT OF CARE TEST E NTER/EDIT ORDERABLES [facility] [address] [place] [address], * XR chest 1 view (02/11/2021 2:28 PM EDT) Anatomical Region Laterality Modality Chest Radiographic Radha ging 02/11/2021 2:28 PM EDT Narrative 02/11/2021 2:48 PM EDT PROCEDURE: CHEST 1 VIEW: 02/11/2021 CLINICAL INFORMATION: dyspnea/weakness: dyspnea/weakness ERA 05 ??Emergency Department Room 05 COMPARISON: 12/08/2020 No pneumothorax. ??No pleural effusion. ??No consolidative airspace opacity or suspicious mass/nodule. Cardiomegaly. No acute bone abnormality appreciated. Impression: No acute cardiopulmonary finding. Cardiomegaly. Report Sign Date: 02/11/2021 2:46 PM, Electronically Signed By: ??Roverto Rucker MD Procedure Note Roverto Rucker MD - 11/25/2021 PROCEDURE: CHEST 1 VIEW: 02/11/2021 CLINICAL INFORMATION: dyspnea/weakness: dyspnea/weakness ERA 05 Emergency Department Room 05 COMPARISON: 12/08/2020 No pneumothorax. No pleural effusion. No consolidative airspace opacityor suspicious mass/nodule. Cardiomegaly. No acute bone abnormality appreciated. Impression: No acute cardiopulmonary finding. Cardiomegaly. 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
--- OUTSIDE RECORDS SUMMARY | 2024-08-18 13:13 | XMS_ITS | Encounter Summary ---
Author Organization [facility] nter Address [address] [place], [place] [id number] [place], [place] [id number] Care Team Providers Care Mental Health Clinician Name Role Phone Ricardo Contreras MD Primary Care Provider + Encounter Details Date Type Department Care Team (Latest Contact Info) Description 10/04/2020 10:54 AM EST - 10/04/2020 11:59 PM EST Hospital Encounter PMC CONVERSION OUTPATIENT [address] [place] [address] Celina Vargas NP [address] [place] [phone] Encounter for other specified surgical aftercare Discharge [...] aftercare documented in this encounter Care Teams Mental Health Clinician Relationship Specialty Start Date End Date Ricardo Contreras MD [address] [place] [address] PCP - General documented as of this encounter
--- OUTSIDE RECORDS SUMMARY | 2024-08-18 13:13 | XMS_ITS | Encounter Summary ---
Author Organization [facility] nter Address [address] [place], [place] [phone] [place] [address] Care Team Providers Care Precision Assembly Inspector Name Role Phone Ricardo Contreras MD Primary Care Provider + Encounter Details Date Type Department Care Team (Late st Contact Info) Description 11/08/2020 12:01 AM EST - 11/08/2020 11:59 PM EST Hospital Encounter PMC CONVERSION OUTPATIENT [address] [place] [address] Caitlyn Hugo MD [address] [place] [phone] Social History Tobacco Use Types Packs/Day Years [...] on filedocumented in this encounter Care Teams Precision Assembly Inspector Relationship Specialty Start Date End Date Ricardo Contreras MD [address] [place] [address] PCP - General documented as of this encounter
--- OUTSIDE RECORDS SUMMARY | 2024-08-18 13:13 | XMS_ITS | Encounter Summary ---
Author Organization [facility] nter Address [address] [place] [address] [place] [address] Care Team Providers Care Anhydrous Ammonia Production Supervisor Name Role Phone Ricardo Contreras MD Primary Care Provider + Encounter Details Date Type Department Care Team (Late st Contact Info) Description 05/10/2021 12:01 AM EDT - 05/10/2021 11:59 PM EDT Hospital Encounter PMC CONVERSION OUTPATIENT [address] [place] [address] Ricardo Contreras MD [address] [place], [place] [phone] Social History Tobacco Use Types Packs/Day Years [...] on filedocumented in this encounter Care Teams Anhydrous Ammonia Production Supervisor Relationship Specialty Start Date End Date Ricardo Contreras MD [address] [place], [place] [phone] PCP - General documented as of this encounter
--- OUTSIDE RECORDS SUMMARY | 2024-08-18 13:13 | XMS_ITS | Encounter Summary ---
Author Organization [facility] nter Address [address] [place], [place] [phone] [place] [address] Care Team Providers Care Gas Engine Repairer Name Role Phone Ricardo Contreras MD Primary Care Provider + Encounter Details Date Type Department Care Team (Latest Contact Info) Description 05/11/2021 1:02 PM EDT - 05/11/2021 11:59 PM EDT Hospital Encounter PMC CONVERSION OUTPATIENT [address] [place] [address] Gregory Forrest MD [address] [place] [phone] Encounter for breast reconstruction following mastectomy Discharge [...] mastectomy documented in this encounter Care Teams Gas Engine Repairer Relationship Specialty Start Date End Date Ricardo Contreras MD [address] [place] [phone] PCP - General documented as of this encounter
--- OUTSIDE RECORDS SUMMARY | 2024-08-18 13:13 | XMS_ITS | Encounter Summary ---
Author Organization [facility] nter Address [address] [place], [place] [phone] [place], [place] [phone] Care Team Providers Care Unit Nurse Name Role Phone Ricardo Contreras MD Primary Care Provider + Encounter Details Date Type Department Care Team (Latest Contact Info) Description 02/01/2021 8:46 AM EDT - 02/01/2021 11:59 PM EDT Hospital Encounter PMC CONVERSION OUTPATIENT [address] [place] [address] Anastasiya Mccormick NP [address] [place] [phone] Malignant neoplasm of unspecified site of right female breast (CMS/HCC) Discharge Disposition: Home or Self Care Social [...] of unspecified site of right female breast documented in this encounter Care Teams Unit Nurse Relationship Specialty Start Date End Date Ricardo Contreras MD [address] [place] [address] PCP - General documented as of this encounter
--- OUTSIDE RECORDS SUMMARY | 2024-08-18 13:13 | XMS_ITS | Encounter Summary ---
Author Organization [facility] nter Address [address] [place], [place] [phone] [place] [address] Care Team Providers Care Crossbar Frame Wirer Name Role Phone Ricardo Contreras MD Primary Care Provider + Encounter Details Date Type Department Care Team (Late st Contact Info) Description 12/08/2020 12:01 AM EDT - 12/08/2020 11:59 PM EDT Hospital Encounter PMC CONVERSION OUTPATIENT [address] [place] [address] Caitlyn Hugo MD [address] [place] [phone] Social History Tobacco Use Types Packs/Day Years [...] Name Priority Date/Time Associated Diagnosis Comments CT LUNG SCREENING LOW DOSE Routine 12/08/2020 11:47 AM EDT documented in this encounter Results * CT lung screening low dose (12/08/2020 [...] MD Caitlyn Hugo MD IMG CT PROCEDURES documented in this encounter Visit Diagnoses Not on filedocumented in this encounter Care Teams Crossbar Frame Wirer Relationship Specialty Start Date End Date Ricardo Contreras MD [address] [place] [address] PCP - General documented as of this encounter
--- OUTSIDE RECORDS SUMMARY | 2024-08-18 13:13 | XMS_ITS | Encounter Summary ---
Author Organization [facility] nter Address [address] [place], [place] [phone] [place] [address] Care Team Providers Care Loading Unit Operator Name Role Phone Ricardo Contreras MD Primary Care Provider + Encounter Details Date Type Department Care Team (Latest Contact Info) Description 11/01/2020 9:51 AM EST - 11/01/2020 11:59 PM EST Hospital Encounter PMC CONVERSION OUTPATIENT [address] [place] [address] Jalil Marie MD [address] [place] [phone] Encounter for screening for osteoporosis; Malignant neoplasm of unspecified site of right female breast (CMS/HCC); snf (current) use of aromatase inhibitors Discharge Disposition: Home or Self Care Social [...] Date/Time Associated Diagnosis Comments DEXA BONE DENSITY EXTREMITY Routine 11/01/2020 9:55 AM EST documented in this encounter Results * DEXA bone density extremity (11/01/2020 9:55 AM EST) Anatomical Region Laterality Modality Body Radiographic Radha ging 11/01/2020 9:55 AM EST Narrative 11/01/2020 1:22 PM EST PROCEDURE: BONE DENSITY DEXA AXIAL SK: 11/01/2020 CLINICAL INFORMATION: Malignant neoplasm of unsp site of right female breast COMPARISON: None AP SPINE (L1-L4): BMD ?? 1.087 Z-SCORE ?? 1.0 T-SCORE ?? 0.4 ??CLASSIFICATION: ??Normal HIP: ?? TOTAL BMD ??0.882 Z-SCORE ?? -0.1 T-SCORE ?? -0.5 NECK BMD ??0.856 Z-SCORE ?? 0.7 T-SCORE ?? 0.1 TROCH BMD ??0.612 Z-SCORE ?? -0.5 T-SCORE ?? -0.9 ??CLASSIFICATION: ??Normal ?? GENERAL INFORMATION: From the National Osteoporosis Foundation [...] (SD) from age and sex-matched control subjects. ??2. ??The Z score can provide useful diagnostic information because a Z score of -2 or greater below the age and sex-matched control may suggest a secondary cause of osteoporosis. ??3. ??For each 10% decrease in BMD, the fracture risk approximately doubles. Report Sign Date: 11/01/2020 1:20 PM, Electronically Signed By: ??Roverto Rucker MD Impression: SEE REPORT Procedure Note Roverto Rucker MD - 11/25/2021 PROCEDURE: BONE DENSITY DEXA AXIAL SK: 11/01/2020 CLINICAL INFORMATION: Malignant neoplasm of unsp site of right femalebreast COMPARISON: None AP SPINE (L1-L4): BMD 1.087 Z-SCORE 1.0 T-SCORE 0.4 CLASSIFICATION: Normal HIP: TOTAL BMD 0.882 Z-SCORE -0.1 T-SCORE -0.5 NECK BMD 0.856 Z-SCORE 0.7 T-SCORE 0.1 TROCH BMD 0.612 Z-SCORE -0.5 T-SCORE -0.9 CLASSIFICATION: Normal GENERAL INFORMATION: From the National Osteoporosis Foundation Defining Osteoporosis by BMD The World Health Organization has established the following definitionsbased on bone mass measurement at the spine, hip, or wrist in whitepostmenopausal women: NORMAL: BMD is within 1 SD of a young normal adult (T-score at -1.0and above). OSTEOPENIA: Low bone mass. BMD is between [...] decrease in BMD, the fracture risk approximatelydoubles. Report Sign Date: 11/01/2020 1:20 PM, Electronically Signed By: Roverto Rucker MD Impression: SEE REPORT Jalil Marie MD IMG DXA PROCEDURES documented in this encounter Visit Diagnoses Diagnosis Encounter for screening for osteoporosis Malignant neoplasm of unspecified site of right female breast snf (current) use of aromatase inhibitors documented in this encounter Care Teams Loading Unit Operator Relationship Specialty Start Date End Date Ricardo Contreras MD [address] [place] [phone] PCP - General documented as of this encounter
--- OUTSIDE RECORDS SUMMARY | 2024-08-18 13:13 | XMS_ITS | Encounter Summary ---
Author Organization [facility] nter Address [address] [place], [place] [id number] [place], [place] [address] Care Team Providers Care Field Logistics Coordinator Name Role Phone Ricardo Contreras MD Primary Care Provider + Encounter Details Date Type Department Care Team (Latest Contact Info) Description 11/04/2020 10:20 AM EST - 11/04/2020 11:59 PM EST Hospital Encounter [facility] CONVERSION OUTPATIENT [address] [place] [address] Celina Vargas NP [address] [place] [phone] Malignant neoplasm of unspecified site of right [...] breast documented in this encounter Care Teams Field Logistics Coordinator Relationship Specialty Start Date End Date Ricardo Contreras MD [address] [place] [address] PCP - General documented as of this encounter
--- OUTSIDE RECORDS SUMMARY | 2024-08-18 13:13 | XMS_ITS | Encounter Summary ---
Author Organization [facility] nter Address [address] [place] [address] Care Team Providers Care Cognos Report Developer Name Role Phone Ricardo Contreras MD Primary Care Provider + Encounter Details Date Type Department Care Team (Latest Contact Info) Description 01/14/2021 8:51 AM EDT - 01/14/2021 11:59 PM EDT Hospital Encounter PMC CONVERSION OUTPATIENT [address] [place] [address] Gregory Forrest MD [address] [place] [phone] Encounter for other specified surgical aftercare Discharge [...] aftercare documented in this encounter Care Teams Cognos Report Developer Relationship Specialty Start Date End Date Ricardo Contreras MD [address] [place] [address] PCP - General documented as of this encounter
--- OUTSIDE RECORDS SUMMARY | 2024-08-18 13:13 | XMS_ITS | Encounter Summary ---
Author Organization [facility] nter Address [address] [place], [place] [id number] [place], [place] [phone] Care Team Providers Care Convex Grinder Operator Name Role Phone Ricardo Contreras MD Primary Care Provider + Encounter Details Date Type Department Care Team (Latest Contact Info) Description 10/11/2020 12:01 AM EST - 11/07/2020 11:59 PM EST Hospital Encounter PMC CONVERSION OUTPATIENT [address] [place] [address] Jalil Marie MD [address] [place] [phone] Malignant neoplasm of unspecified site of right [...] breast documented in this encounter Care Teams Convex Grinder Operator Relationship Specialty Start Date End Date Ricardo Contreras MD [address] [place] [address] PCP - General documented as of this encounter
--- OUTSIDE RECORDS SUMMARY | 2024-08-18 13:14 | XMS_ITS | Encounter Summary ---
Author Organization [facility] nter Address [address] [place], [place] [id number] [place], [place] [phone] Care Team Providers Care Paper Products Machine Operator Name Role Phone Ricardo Contreras MD Primary Care Provider + Encounter Details Date Type Department Care Team (Latest Contact Info) Description 08/19/2020 1:00 PM EST - 08/19/2020 11:59 PM EST Hospital Encounter PMC CONVERSION OUTPATIENT [address] [place] [id number] Joe Brewster MD [address] [place] [phone] Encounter for other specified surgical aftercare Discharge [...] aftercare documented in this encounter Care Teams Paper Products Machine Operator Relationship Specialty Start Date End Date Ricardo Contreras MD [address] [place] [address] PCP - General documented as of this encounter
--- OUTSIDE RECORDS SUMMARY | 2024-08-18 13:14 | XMS_ITS | Encounter Summary ---
Author Organization [facility] nter Address [address] [place] [id number] [place] [address] Care Team Providers Care Wood Mechanist Name Role Phone Ricardo Contreras MD Primary Care Provider + Encounter Details Date Type Department Care Team (Latest Contact Info) Description 08/19/2020 10:27 AM EST - 09/09/2020 11:59 PM EST Hospital Encounter PMC CONVERSION OUTPATIENT [address] [place] [address] Jalil Marie MD [address] [place] [phone] Malignant neoplasm of unspecified site of right female breast (CMS/HCC); Estrogen receptor positive status (ER+); Family history of malignant neoplasm of breast; Acquired absence of right breast and nipple; Other intermediate manager (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; penitentiary (current) use of opiate analgesic; Personal history of nicotine dependence; Other hyperlipidemia; Essential (primary) hypertension; Gastro-esophageal reflux disease without esophagitis; Spondylosis without myelopathy or radiculopathy, lumbosacral region; Other specified disorders of middle ear and mastoid, unspecified ear; Allergic rhinitis, unspecified; Myalgia, unspecified site; Segmental and somatic dysfunction of head region; Latex allergy status; Other nonmedicinal substance allergy status; Allergy to other foods; Bee allergy status Discharge Disposition: Home or [...] Date/Time Associated Diagnosis Comments GFR CALCULATED Routine 08/19/2020 12:39 PM EST CBC WITH AUTO DIFFERENTIAL Routine 08/19/2020 12:39 PM EST VITAMIN D, TOTAL Routine 08/19/2020 12:3 9 PM EST ESTRADIOL Routine 08/19/2020 12:39 PM EST LACTATE DEHYDROGENASE Routine 08/19/2020 12:39 PM EST LUTEINIZING HORMONE Routine 08/19/2020 1 2:39 PM EST FOLLICLE STIMULATING HORMONE Routine 08/19/2020 12:39 PM EST COMPREHENSIVE METABOLIC PANEL Routine 08/19/2020 12:39 PM EST documented in this encounter Results * (ABNORMAL) GFR CALCULATED (08/19/2020 12:39 PM EST) eGFR 25.2(L) 60.0 - 200.0 ML/MIN 08/19/2020 1:17 PM EST [facility] 08/19/2020 12:3 9 PM EST 08/19/2020 12:39 PM EST Jalil Marie MD LAB CHG PERFORMABLE S [facility] [address] * (ABNORMAL) CBC auto differential (08/19/2020 12:39 PM EST) Platelets 254 122 - 454 K/ul 08/19/2020 12:50 PM EST [facility] RBC 4.190 3.450 - 5.400 M/ul 08/19/2020 12:50 PM EST [facility] MCV 79.7 78.2 - 101.8 fl 08/19/2020 12:50 PM EST [facility] MCH 25.3(L) 26.4 - 33.3 pg 08/19/2020 12:50 PM EST [facility] MCHC 31.8(L) 32.5 - 35.3 g/dL 08/19/2020 12:50 PM EST [facility] RDW 15.2 10.1 - 16.2 % 08/19/2020 12:50 PM EST [facility] MPV 8.3 6.4 - 10.4 fl 08/19/2020 12:50 PM EST [facility] Neutrophils % 67.5 43.0 - 83.0 % 08/19/2020 12:50 PM EST [facility] Neutrophils Absolute 10.3(H) 2.7 - 6.9 K/ul 08/19/2020 12:50 PM EST [facility] Auto WBC 15.20(H) 3.00 - 11.30 K/ul 08/19/2020 12:50 PM EST [facility] nRBC 0.00 08/19/2020 12:50 PM EST [facility] Basophils % 0.7 0.0 - 2.0 % 08/19/2020 12:50 PM EST [facility] Basophils Absolute 0.1 0.0 - 0.2 K/ul 08/19/2020 12:50 PM EST [facility] Eosinophils % 2.9 0.0 - 9.0 % 08/19/2020 12:50 PM EST [facility] Eosinophils Absolute 0.4 0.0 - 0.9 K/ul 08/19/2020 12:50 PM EST [facility] Lymphocytes % 20.0 10.0 - 42.0 % 08/19/2020 12:50 PM EST [facility] Lymphocytes Absolute 3.0 0.4 - 3.9 K/ul 08/19/2020 12:50 PM EST [facility] Monocytes % 8.9 1.0 - 14.0 % 08/19/2020 12:50 PM EST [facility] Monocytes Absolute 1.4(H) 0.2 - 0.9 K/ul 08/19/2020 12:50 PM EST [facility] Hematocrit 33.3 29.9 - 45.5 % 08/19/2020 12:50 PM EST [facility] Hemoglobin 10.6 10.0 - 16.0 gm/dl 08/19/2020 12:50 PM EST [facility] 08/19/2020 12:3 9 PM EST 08/19/2020 12:43 PM EST Jalil Marie MD LAB BLOOD ORDERABLE S [facility] [address] [place] [address], * (ABNORMAL) Lactate dehydrogenase (08/19/2020 12:39 PM EST) LD 204(H) 100 - 190 U/L 08/19/2020 1:17 PM EST [facility] 08/19/2020 12:3 9 PM EST 08/19/2020 12:43 PM EST Jalil Marie MD LAB BLOOD ORDERABLE S Performing Organization Address [facility] Phone Number [facility] [address] [place] [address], * Estradiol (08/19/2020 12:39 PM EST) Estradiol 29.7 0.0 - 367.2 pg/mL 08/19/2020 1:17 PM EST [facility] 08/19/2020 12:3 9 PM EST 08/19/2020 12:43 PM EST Jalil Marie MD LAB BLOOD ORDERABLE S Performing Organization Address [facility] Phone Number [facility] [address] [place] [address], * Vitamin D 25 hydroxy (08/19/2020 12:39 PM EST) VITAMIN D, 25-HYDROXY 31.6 30.0 - 100.0 ng/mL 08/19/2020 1:20 PM EST [facility] 08/19/2020 12:3 9 PM EST 08/19/2020 12:43 PM EST Jalil Marie MD LAB BLOOD ORDERABLE S [facility] [address] * Luteinizing hormone (08/19/2020 12:39 PM EST) Luteinizing Hormone 45.2 mIU/ml 08/19/2020 1:17 PM EST [facility] 08/19/2020 12:3 9 PM EST 08/19/2020 12:43 PM EST Jalil Marie MD LAB BLOOD ORDERABLE S [facility] [address] * Follicle stimulating hormone (08/19/2020 12:39 PM EST) Follicle Stimulating Hormone 54.3 mIU/ml 08/19/2020 1:17 PM EST [facility] 08/19/2020 12:3 9 PM EST 08/19/2020 12:43 PM EST Jalil Marie MD LAB BLOOD ORDERABLE S Performing Organization Address City[facility] Co de Phone Number [facility] [address] * (ABNORMAL) Comprehensive metabolic panel (08/19/2020 12:39 PM EST) Globulin, Total 5.1(H) 2.4 - 4.8 g/dL 08/19/2020 1:17 PM EST [facility] A/G Ratio 0.5(L) 0.6 - 1.6 08/19/2020 1:17 PM EST [facility] Calcium 9.0 8.5 - 10.1 mg/dL 08/19/2020 1:17 PM EST [facility] Chloride 103 98 - 107 mmol/L 08/19/2020 1:17 PM EST [facility] CO2 23 21 - 32 mmol/L 08/19/2020 1:17 PM EST [facility] Creatinine 2.10(H) 0.60 - 1.30 MG/DL 08/19/2020 1:17 PM EST [facility] Potassium 3.9 3.6 - 5.2 mmol/L 08/19/2020 1:17 PM EST [facility] Sodium 135 133 - 144 mmol/L 08/19/2020 1:17 PM [facility] Albumin 2.6(L) 3.4 - 5.0 g/dL 08/19/2020 1:17 PM [facility] Alkaline Phosphatase 104 45 - 117 U/L 08/19/2020 1:17 PM [facility] Total Bilirubin 0.30 0.00 - 1.00 MG/DL 08/19/2020 1:17 PM [facility] ALT (SGPT) 16 12 - 78 U/L 08/19/2020 1:17 PM [facility] Total Protein 7.7 6.4 - 8.4 g/dL 08/19/2020 1:17 PM [facility] AST 16 15 - 37 U/L 08/19/2020 1:17 PM [facility] BUN 15 7 - 18 MG/DL 08/19/2020 1:17 PM [facility] Glucose 217(H) 70 - 110 MG/DL 08/19/2020 1:17 PM [facility] 08/19/2020 12:3 9 PM EST 08/19/2020 12:43 PM EST Jalil Marie MD LAB BLOOD ORDERABLE S Performing Organization Address City/State/[facility] Co de Phone Number [facility] [address] documented in this encounter Visit Diagnoses Diagnosis Malignant neoplasm of unspecified site of right female breast Estrogen receptor positive status (ER+) Estrogen receptor positive status [ER+] Family history of malignant neoplasm of breast Acquired absence of right breast and nipple Other intermediate manager (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 penitentiary (current) use of opiate analgesic Personal history of nicotine dependence Other hyperlipidemia Essential (primary) hypertension Unspecified essential hypertension Gastro-esophageal reflux disease without esophagitis Spondylosis without myelopathy or radiculopathy, lumbosacral region Other specified disorders of middle ear and mastoid, unspecified ear Allergic rhinitis, unspecified Myalgia, unspecified site Segmental and somatic dysfunction of head region Latex allergy status Other nonmedicinal substance allergy status Allergy to other foods Bee allergy status documented in this encounter Care Teams Wood Mechanist Relationship Specialty Start Date End Date Ricardo Contreras MD [address] [place] [address] PCP - General documented as of this encounter
--- OUTSIDE RECORDS SUMMARY | 2024-08-18 13:14 | XMS_ITS | Encounter Summary ---
Author Organization [facility] nter Address [address] [place] [address] [place] [phone] Care Team Providers Care Research Manager Name Role Phone Ricardo Contreras MD Primary Care Provider + Encounter Details Date Type Department Care Team (Late st Contact Info) Description 05/19/2020 12:01 AM EDT - 05/19/2020 11:59 PM EDT Hospital Encounter [facility] CONVERSION OUTPATIENT [address] [place] [address] Ricardo Contreras MD [address] [place] [address] Social History Tobacco Use Types Packs/Day Years [...] on filedocumented in this encounter Care Teams Research Manager Relationship Specialty Start Date End Date Ricardo Contreras MD [address] [place], [place] [phone] PCP - General documented as of this encounter
--- OUTSIDE RECORDS SUMMARY | 2024-08-18 13:14 | XMS_ITS | Encounter Summary ---
Author Organization [facility] nter Address [address] [place], [place] [id number] [place], [place] [phone] Care Team Providers Care Executive Producer Name Role Phone Ricardo Contreras MD Primary Care Provider + Encounter Details Date Type Department Care Team (Latest Contact Info) Description 03/23/2020 3:09 PM EDT - 03/23/2020 11:59 PM EDT Hospital Encounter [facility]C CONVERSION OUTPATIENT [address] [place] [address] Ubaldo Yuen, DO [address] [place] [address] Myalgia, unspecified site; Personal history of nicotine dependence Discharge Disposition: [...] as of this encounter Visit Diagnoses Diagnosis Myalgia, unspecified site Personal history of nicotine dependence documented in this encounter Care Teams Executive Producer Relationship Specialty Start Date End Date Ricardo Contreras MD [address] [place] [address] PCP - General documented as of this encounter
--- OUTSIDE RECORDS SUMMARY | 2024-08-18 13:14 | XMS_ITS | Encounter Summary ---
Author Organization [facility] nter Address [address] [place] [address] [place] [phone] Care Team Providers Care Paper Reel Operator Name Role Phone Ricardo Contreras MD Primary Care Provider + Encounter Details Date Type Department Care Team (Latest Contact Info) Description 08/17/2020 11:17 AM EST - 08/17/2020 11:59 PM EST Hospital Encounter [facility] CONVERSION OUTPATIENT [address] [place] [phone] Lesly Collazo NP [address] [place] [phone] Encounter for other specified surgical aftercare Discharge [...] documented in this encounter Care Teams Paper Reel Operator Relationship Specialty Start Date End Date Ricardo Contreras MD [address] [place] [address] PCP - General documented as of this encounter
--- OUTSIDE RECORDS SUMMARY | 2024-08-18 13:14 | XMS_ITS | Encounter Summary ---
Author Organization [facility] nter Address [address] [place] [address] [place] [phone] Care Team Providers Care Dropper Tank Storage Name Role Phone Ricardo Contreras MD Primary Care Provider + Encounter Details Date Type Department Care Team (Latest Contact Info) Description 08/31/2020 9:14 AM EST - 08/31/2020 11:59 PM EST Hospital Encounter [facility] CONVERSION OUTPATIENT [address] [place] [phone] Ubaldo Burden, SARA [address] [place] [phone] Encounter for change or removal of drains; Postprocedural seroma of skin and subcutaneous tissue following other procedure; Malignant neoplasm of unspecified site of unspecified female breast (CMS/HCC) Discharge Disposition: Home or [...] this encounter Visit Diagnoses Diagnosis Encounter for change or removal of drains Other specified aftercare following surgery Postprocedural seroma of skin and subcutaneous tissue following other procedure Malignant neoplasm of unspecified site of unspecified female breast documented in this encounter Care Teams Dropper Tank Storage Relationship Specialty Start Date End Date Ricardo Contreras MD [address] [place] [address] PCP - General documented as of this encounter
--- OUTSIDE RECORDS SUMMARY | 2024-08-18 13:14 | XMS_ITS | Encounter Summary ---
Author Organization [facility] nter Address [address] [place], [place] [address] [place], [place] [phone] Care Team Providers Care Financial Data Analyst Name Role Phone Ricardo Contreras MD Primary Care Provider + Encounter Details Date Type Department Care Team (Latest Contact Info) Description 05/16/2020 6:01 PM EDT - 05/16/2020 10:39 PM EDT Hospital Encounter [facility]C CONVERSION OUTPATIENT [address] [place] [address] Yuri Gormanney, DO [address] [place] [phone] Lumbago with sciatica, left side; Type 2 diabetes mellitus without complications (CMS/HCC); Essential (primary) hypertension; Other chronic pain; Other roasterman (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; group home (current) use of oral hypoglycemic drugs Discharge [...] Name Priority Date/Time Associated Diagnosis Comments CT PELVIS WO IV CONTRAST Routine 05/16/2020 9:25 PM EDT HCG, URINE, QUALITATIVE Routine 05/16/2020 8:30 PM EDT HCG, SERUM, QUALITATIVE Routine 05/16/2020 7:[address] LUMBAR SPINE WO IV CONTRAST Routine 05/16/2020 7:03 PM EDT documented in this encounter Results * CT pelvis wo IV contrast (05/16/2020 9:25 PM EDT) Anatomical Region Laterality Modality Body, Pelvis Computed Tomogra phy 05/16/2020 9:25 PM EDT Narrative 05/16/2020 10:11 PM EDT PROCEDURE INFORMATION: ?Exam: CT Pelvis Without Contrast; Skeletal ?Exam date and time: 05/16/2020 10:04 PM ?Age: 49 years old ?Clinical indication: Pelvic pain; Patient HX: 49 y/o wf presents for low back ??pain going into left hip after twisting in bathroom 1 day ago. No fall. Has ??also not been able to be in pain clinic due to provider change. No loss of ??bowel or bladder, no saddle anesthesia. ; Additional info: Low back pain into l TECHNIQUE: ?Imaging protocol: Computed tomography images of the pelvis without contrast. ?Exam focused on the skeletal structures. ?Radiation optimization: All CT scans at this facility use at least one of these ??dose optimization techniques: automated exposure control; mA and/or kV ??adjustment per patient size (includes targeted exams where dose is matched to ??clinical indication); or iterative reconstruction. ?? COMPARISON: ?No relevant prior studies available. ?? FINDINGS: ?Bones/joints: Unremarkable. No acute fracture. No dislocation. ?Soft tissues: Unremarkable. ?? Impression: ??No acute findings. ?? Procedure Note Zahra Lindsey - 11/25/2021 PROCEDURE INFORMATION: Exam: CT Pelvis Without Contrast; Skeletal Exam date and time: 05/16/2020 10:04 PM Age: 49 years old Clinical indication: Pelvic pain; Patient HX: 49 y/o wf presents for lowback pain going into left hip after twisting in bathroom 1 day ago. Nofall. Has also not been able to be in pain clinic due to provider change.No loss of bowel or bladder, no saddle anesthesia. ; Additional info: Lowback pain into l TECHNIQUE: Imaging protocol: Computed tomography images of the pelvis withoutcontrast. Exam focused on the skeletal structures. Radiation optimization: All CT scans at this facility use at least oneof these dose optimization techniques: automated exposure control; mAand/or kV adjustment per patient size (includes targeted exams where doseis matched to clinical indication); or iterative reconstruction. COMPARISON: No relevant prior studies available. FINDINGS: Bones/joints: Unremarkable. No acute fracture. No dislocation. Soft tissues: Unremarkable. Impression: No acute findings. Ang Ramos NP IMG CT PROCEDURES * hCG, urine, qualitative (05/16/2020 8:30 PM EDT) Preg Test, Ur NEGATIVE 05/16/2020 8:55 PM EDT [facility] 05/16/2020 8:30 PM EDT 05/16/2020 8:49 PM EDT Ang Ramos PROCUREMENT INTERN LAB URINE ORDERABLES Performing Organization Address [facility] Co de Phone Number [facility] [address] * (ABNORMAL) hCG, serum, qualitative (05/16/2020 7:10 PM EDT) hCG Value POSITIVE(A A) 05/16/2020 8:40 PM EDT [facility] 05/16/2020 7:10 PM EDT 05/16/2020 7:40 PM EDT [facility] LAB BLOOD ORDERABLES Performing Organization Address [facility] Co de Phone Number [facility] [address] * CT lumbar spine wo IV contrast (05/16/2020 7:03 PM EDT) Anatomical Region Laterality Modality Spine, L-spine Computed Tomogra phy 05/16/2020 7:03 PM EDT Narrative 05/16/2020 10:13 PM EDT PROCEDURE INFORMATION: ?Exam: CT Lumbar Spine Without Contrast ?Exam date and time: 05/16/2020 10:04 PM ?Age: 49 years old ?Clinical indication: Patient HX: 49 y/o wf presents for low back pain going ??into left hip after twisting in bathroom 1 day ago. No fall. Has also not been ??able to be in pain clinic due to provider change. No loss of bowel or bladder, ??no saddle anesthesia. ; Additional info: Low back pain into l ?? TECHNIQUE: ?Imaging protocol: Computed tomography images of the lumbar spine without ??contrast. ?Radiation optimization: All CT scans at this facility use at least one of these ??dose optimization techniques: automated exposure control; mA and/or kV ??adjustment per patient size (includes targeted exams where dose is matched to ??clinical indication); or iterative reconstruction. ?? COMPARISON: ??MR L-SPINE^ROUTINE 10/22/2013 5:47 PM ?? FINDINGS: ?Vertebrae: No acute fracture. Normal alignment. ?Discs/Spinal canal/Neural foramina: At L5-S1 there is mild neural foraminal ??narrowing resulting in encroachment upon the exiting nerve roots. No ??significant disc protrusion. No severe spinal canal stenosis. No significant ??neural foraminal narrowing. ?? Soft tissues: Unremarkable. ?? Impression: ??No acute findings. ?? Procedure Note Zahra Lindsey - 11/25/2021 PROCEDURE INFORMATION: Exam: CT Lumbar Spine Without Contrast Exam date and time: 05/16/2020 10:04 PM Age: 49 years old Clinical indication: Patient HX: 49 y/o wf presents for low back paingoing into left hip after twisting in bathroom 1 day ago. No fall. Hasalso not been able to be in pain clinic due to provider change. No lossof bowel or bladder, no saddle anesthesia. ; Additional info: Low backpain into l TECHNIQUE: Imaging protocol: Computed tomography images of the lumbar spine withoutcontrast. Radiation optimization: All CT scans at this facility use at least oneof these dose optimization techniques: automated exposure control; mAand/or kV adjustment per patient size (includes targeted exams where doseis matched to clinical indication); or iterative reconstruction. COMPARISON: MR L-SPINE^ROUTINE 10/22/2013 5:47 PM FINDINGS: Vertebrae: No acute fracture. Normal alignment. Discs/Spinal canal/Neural foramina: At L5-S1 there is mild neuralforaminal narrowing resulting in encroachment upon the exiting nerveroots. No significant disc protrusion. No severe spinal canal stenosis.No significant neural foraminal narrowing. Soft tissues: Unremarkable. Impression: No acute findings. Ang Ramos NP IMG CT PROCEDURES documented in this encounter Visit Diagnoses Diagnosis Lumbago with sciatica, left side Type 2 diabetes mellitus without complications Essential (primary) hypertension Unspecified essential hypertension Other chronic pain Other jail (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 group home (current) use of oral hypoglycemic drugs documented in this encounter Care Teams Financial Data Analyst Relationship Specialty Start Date End Date Ricardo Contreras MD [address] [place] [phone] PCP - General documented as of this encounter
--- OUTSIDE RECORDS SUMMARY | 2024-08-18 13:14 | XMS_ITS | Encounter Summary ---
Author Organization [facility] nter Address [address] [place] [address] [place] [address] Care Team Providers Care Diploma Maker Name Role Phone Ricardo Contreras MD Primary Care Provider + Encounter Details Date Type Department Care Team (Latest Contact Info) Description 09/07/2020 11:08 AM EST - 09/07/2020 11:59 PM EST Hospital Encounter [facility] CONVERSION OUTPATIENT [address] [place] [id number] Tad Thomas NP [address] [place] [id number] Malignant neoplasm of unspecified site of right female breast (CMS/HCC); Encounter for other specified surgical aftercare Discharge [...] of unspecified site of right female breast Encounter for other specified surgical aftercare documented in this encounter Care Teams Diploma Maker Relationship Specialty Start Date End Date Ricardo Contreras MD [address] [place] [address] PCP - General documented as of this encounter
--- OUTSIDE RECORDS SUMMARY | 2024-08-18 13:14 | XMS_ITS | Encounter Summary ---
Author Organization [facility] nter Address [address] [place], [place] [id number] [place], [place] [id number] Care Team Providers Care Picker And Packer Name Role Phone Ricardo Contreras MD Primary Care Provider + Encounter Details Date Type Department Care Team (Latest Contact Info) Description 08/04/2020 2:33 PM EST - 08/05/2020 10:01 AM [facility] Hospital Encounter [facility] CONVERSION OUTPATIENT [address] [place] [id number] Joe Brewster MD [address] [place] [id number] Malignant neoplasm of overlapping sites of right female breast (CMS/HCC); Benign neoplasm of lymph nodes; Hyperlipidemia, unspecified; Essential (primary) hypertension; Gastro-esophageal reflux disease without esophagitis; Other chronic pain; Dorsalgia, unspecified; Restless legs syndrome; Type 2 diabetes mellitus without complications (CMS/HCC); Personal history of nicotine dependence; Obesity, unspecified; Body mass index (BMI) 36.0-36.9, adult; Bee allergy status; Latex allergy status; Allergy status to other drugs, medicaments and biological substances; Allergy to other foods; [facility] (current) use of oral hypoglycemic drugs; director long term care (current) use of non-steroidal anti-inflammatories (nsaid); director long term care (current) use of opiate analgesic; 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 Joe Brewster- [facility] Clinic 2- 2nd Floor, [address] [place] [address] BREWSTER ,Provider, in 08-12-20 @ 9:30 Patient/Parent Signature documented in this encounter Miscellaneous Notes * Legacy Note - Naomi Corado - 08/05/2020 9:03 AM EST MAY CONTINUE HOME MEDICATIONS PREVIOUSLY ORDERED. DO NOT DRIVE WHILE TAKING PAIN MEDICATIONS. DO NOT TAKE PAIN MEDICATIONS PRESCRIBED AND PAIN MEDICATION AT HOME TOGETHER. * Legacy Note - Naomi Corado - 08/05/2020 8:56 AM EST DATE/TIME OF DISCHARGE: 05-Aug-2020 08:56 MODE OF TRANSPORT: Ambulatory PERSON ACCOMPANIED PATIENT AT DISCHARGE: FAMILY DISCHARGE DISPOSITION: Home DIAGNOSIS - Lactic acidosis - History of mastectomy [BREWSTER] DIET: Regular , Other: TOLERATED ACTIVITY/RETURN TO WORK/SCHOOL: Level of Activity/Restrictions: LIGHT ACTIVITY, NO HEAVY LIFTING, USE SLING, CHELSEY CARE INSTRUCTED BY NURSE. STRIP, EMPTY, AND RECORD OUTPUT DAILY AND NEEDED. BRING RECORD OF OUTPUT TO FOLLOW UP APPT. FOLLOW UP WITH: Follow up with: [facility] Site/Services: Clinic Name/Site: with DR BREWSTER,Provider, in YOU WILL RECEIVE DISCHARGE INFORMATION AND INSTRUCTIONS ABOUT: RETURN TO ER FOR ANY PROBLEMS. *Pneumococcal vaccination: Patient declined *Influenza vaccination:Patient declined Patient did not receive Insulin during the hospital stay. Prescriptions given to: PATIENT Please bring all of your prescription bottles to any follow-up appointments. Take pain medication as as directed, No alcohol SMOKING: If you currently smoke cigarettes/cigars/pipes &/or chewing tobacco, (or have smoked in the last year) it is important for you to STOP. Ask your physician for information or call 311 to help you stop smoking. If you don't smoke, don't start. Avoid second-hand smoke. CALL 911 IF YOU DEVELOP SHORTNESS OF BREATH OR CHEST PAIN If you are not feeling better within 1 to 2 days, call your doctor. SEEK IMMEDIATE MEDICAL ATTENTION IF existing symptoms get worse or new symptoms develop; such as chest pain, difficulty breathing, vomiting, belly pain, unusual sleepiness, confusion, convulsions, blurred vision, difficulty walking, a fever, cough, dry mouth, stiff neck, headache or you pass out. In small children also look for poor feeding, sunken eyes, decreased urination, a rash or increased irritability. Patient/Parent Signature Date/Time * Care Plan - Geneva Melendez RN - 08/04/2020 3:37 PM EST Name: care plan Status: COMPLETED Reassessment Frequency: DAILY Comments: this is a test. Entered by: SABINA CLEMENS (CAUSTICISER) Date/Time Entered: 08/06/19@07:34:58 CATEGORY: CARE PLAN SHIFT REVIEWS PROBLEM: Care Plan Shift Reviews Start Date: 08/06/19 Status: ACTIVE Entered by: PIA PAZ (CAUSTICISER) Date/Time Entered: 08/06/19@01:42:07 Start Date: 08/06/19 Status: ACTIVE Entered by: PIA PAZ (CAUSTICISER) Date/Time Entered: 08/07/19@08:22:03 INTERVENTION: Care plan reviewed and updated as indicated. Start Date: 08/06/19 Discipline: NURSE Frequency: EVERY 12 HOURS Care Action: CONTINUE Entered by: PIA PAZ (CAUSTICISER) Date/Time Entered: 08/06/19@01:42:07 CATEGORY: Diabetes PROBLEM: Hyperglycemia Comments: Related to diagnosis: Related to medical condition: Start Date: 08/06/19 Status: ACTIVE Entered by: PIA PAZ (CAUSTICISER) Date/Time Entered: 08/06/19@01:42:13 GOAL: Long-Term Goal Start Date: 08/06/19 Status: IN PROGRESS Entered by: PIA PAZ (CAUSTICISER) Date/Time Entered: 08/06/19@01:42:13 GOAL: Short Term Goal Start Date: 08/06/19 Status: IN PROGRESS Entered by: PIA PAZ (CAUSTICISER) Date/Time Entered: 08/06/19@01:42:13 GOAL: State relationship between glucose control and complication prevention. Start Date: 08/06/19 Status: IN PROGRESS Entered by: PIA PAZ (CAUSTICISER) Date/Time Entered: 08/06/19@01:42:13 INTERVENTION: Discuss diabetes management, sick day guidelines and provide written teaching materials. Start Date: 08/06/19 Discipline: NURSE Frequency: EVERY DAY Care Action: CONTINUE Entered by: PIA PAZ (CAUSTICISER) Date/Time Entered: 08/06/19@01:42:13 CATEGORY: Discharge Plan PROBLEM: Initiate on admission Comments: Related to diagnosis: Related to medical condition: Start Date: 08/06/19 Status: ACTIVE Entered by: PIA PAZ (CAUSTICISER) Date/Time Entered: 08/06/19@01:42:18 GOAL: Long-Term Goal Start Date: 08/06/19 Status: IN PROGRESS Entered by: PIA PAZ (CAUSTICISER) Date/Time Entered: 08/06/19@01:42:18 GOAL: Prepare and educate for discharge Start Date: 08/06/19 Status: IN PROGRESS Entered by: PIA PAZ (CAUSTICISER) Date/Time Entered: 08/06/19@01:42:18 GOAL: Short Term Goal Start Date: 08/06/19 Status: IN PROGRESS Entered by: PIA PAZ (CAUSTICISER) Date/Time Entered: 08/06/19@01:42:18 GOAL: Verbalize understanding Start Date: 08/06/19 Status: IN PROGRESS Entered by: PIA PAZ (CAUSTICISER) Date/Time Entered: 08/06/19@01:42:18 INTERVENTION: Follow up appointments Start Date: 08/06/19 Discipline: NURSE Frequency: EVERY DAY Care Action: CONTINUE Entered by: PIA PAZ (CAUSTICISER) Date/Time Entered: 08/06/19@01:42:18 INTERVENTION: Keep follow up appointments Start Date: 08/06/19 Discipline: NURSE Frequency: EVERY DAY Care Action: CONTINUE Entered by: PIA PAZ (CAUSTICISER) Date/Time Entered: 08/06/19@01:42:18 INTERVENTION: Notify physician as needed Start Date: 08/06/19 Discipline: NURSE Frequency: EVERY DAY Care Action: CONTINUE Entered by: PIA PAZ (CAUSTICISER) Date/Time Entered: 08/06/19@01:42:18 INTERVENTION: Return to emergency room if needed Start Date: 08/06/19 Discipline: NURSE Frequency: EVERY DAY Care Action: CONTINUE Entered by: PIA PAZ (CAUSTICISER) Date/Time Entered: 08/06/19@01:42:18 INTERVENTION: Take all medications as prescribed Start Date: 08/06/19 Discipline: NURSE Frequency: EVERY DAY Care Action: CONTINUE Entered by: PIA PAZ (CAUSTICISER) Date/Time Entered: 08/06/19@01:42:18 CATEGORY: Gastrointestinal PROBLEM: Constipation Comments: Related to diagnosis: Related to medical condition: Start Date: 08/06/19 Status: ACTIVE Entered by: PIA PAZ (CAUSTICISER) Date/Time Entered: 08/06/19@01:42:31 GOAL: Increased mobility Start Date: 08/06/19 Status: IN PROGRESS Entered by: PIA PAZ (CAUSTICISER) Date/Time Entered: 08/06/19@01:42:31 GOAL: Long-Term Goal Start Date: 08/06/19 Status: IN PROGRESS Entered by: PIA PAZ (CAUSTICISER) Date/Time Entered: 08/06/19@01:42:31 GOAL: Manage pain Start Date: 08/06/19 Status: IN PROGRESS Entered by: PIA PAZ (CAUSTICISER) Date/Time Entered: 08/06/19@01:42:31 GOAL: Normal elimination patterns Start Date: 08/06/19 Status: IN PROGRESS Entered by: PIA PAZ (CAUSTICISER) Date/Time Entered: 08/06/19@01:42:31 GOAL: Patient demonstrates appropriate meal selection Start Date: 08/06/19 Status: IN PROGRESS Entered by: PIA PAZ (CAUSTICISER) Date/Time Entered: 08/06/19@01:42:31 GOAL: Patient states understanding of benefits of weight loss Start Date: 08/06/19 Status: IN PROGRESS Entered by: PIA PAZ (CAUSTICISER) Date/Time Entered: 08/06/19@01:42:31 GOAL: Patient understands measures need for weight reduction Start Date: 08/06/19 Status: IN PROGRESS Entered by: PIA PAZ (CAUSTICISER) Date/Time Entered: 08/06/19@01:42:31 GOAL: Self care Start Date: 08/06/19 Status: IN PROGRESS Entered by: PIA PAZ (CAUSTICISER) Date/Time Entered: 08/06/19@01:42:31 GOAL: Short Term Goal Start Date: 08/06/19 Status: IN PROGRESS Entered by: PIA PAZ (CAUSTICISER) Date/Time Entered: 08/06/19@01:42:31 INTERVENTION: Assess hydration Start Date: 08/06/19 Discipline: NURSE Frequency: EVERY DAY Care Action: CONTINUE Entered by: PIA PAZ (CAUSTICISER) Date/Time Entered: 08/06/19@01:42:31 INTERVENTION: Assist with ADL's Start Date: 08/06/19 Discipline: NURSE Frequency: EVERY DAY Care Action: CONTINUE Entered by: PIA PAZ (CAUSTICISER) Date/Time Entered: 08/06/19@01:42:31 INTERVENTION: Diet modification Start Date: 08/06/19 Discipline: NURSE Frequency: EVERY DAY Care Action: CONTINUE Entered by: PIA PAZ (CAUSTICISER) Date/Time Entered: 08/06/19@01:42:31 INTERVENTION: Dietary referral Start Date: 08/06/19 Discipline: NURSE Frequency: EVERY DAY Care Action: CONTINUE Entered by: PIA PAZ (CAUSTICISER) Date/Time Entered: 08/06/19@01:42:31 INTERVENTION: Emotional support Start Date: 08/06/19 Discipline: NURSE Frequency: EVERY DAY Care Action: CONTINUE Entered by: PIA PAZ (CAUSTICISER) Date/Time Entered: 08/06/19@01:42:31 INTERVENTION: Encourage mobility Start Date: 08/06/19 Discipline: NURSE Frequency: EVERY DAY Care Action: CONTINUE Entered by: PIA PAZ (CAUSTICISER) Date/Time Entered: 08/06/19@01:42:31 INTERVENTION: Exercise promotion Start Date: 08/06/19 Discipline: NURSE Frequency: EVERY DAY Care Action: CONTINUE Entered by: PIA PAZ (CAUSTICISER) Date/Time Entered: 08/06/19@01:42:31 INTERVENTION: Incontinence care Start Date: 08/06/19 Discipline: NURSE Frequency: EVERY DAY Care Action: CONTINUE Entered by: PIA PAZ (CAUSTICISER) Date/Time Entered: 08/06/19@01:42:31 INTERVENTION: Medications as ordered Start Date: 08/06/19 Discipline: NURSE Frequency: EVERY DAY Care Action: CONTINUE Entered by: PIA PAZ (CAUSTICISER) Date/Time Entered: 08/06/19@01:42:31 INTERVENTION: Monitor intake and output Start Date: 08/06/19 Discipline: NURSE Frequency: EVERY DAY Care Action: CONTINUE Entered by: PIA PAZ (CAUSTICISER) Date/Time Entered: 08/06/19@01:42:31 INTERVENTION: Monitor labs Start Date: 08/06/19 Discipline: NURSE Frequency: EVERY DAY Care Action: CONTINUE Entered by: PIA PAZ (CAUSTICISER) Date/Time Entered: 08/06/19@01:42:31 INTERVENTION: Monitor vital signs Start Date: 08/06/19 Discipline: NURSE Frequency: EVERY DAY Care Action: CONTINUE Entered by: PIA PAZ (CAUSTICISER) Date/Time Entered: 08/06/19@01:42:31 INTERVENTION: Notify physician as needed Start Date: 08/06/19 Discipline: NURSE Frequency: EVERY DAY Care Action: CONTINUE Entered by: PIA PAZ (CAUSTICISER) Date/Time Entered: 08/06/19@01:42:31 INTERVENTION: Pain management Start Date: 08/06/19 Discipline: NURSE Frequency: EVERY DAY Care Action: CONTINUE Entered by: PIA PAZ (CAUSTICISER) Date/Time Entered: 08/06/19@01:42:31 CATEGORY: Musculoskeletal PROBLEM: Impaired mobility, risk for Comments: Related to diagnosis: Related to medical condition: Start Date: 08/06/19 Status: ACTIVE Entered by: PIA PAZ (CAUSTICISER) Date/Time Entered: 08/06/19@01:42:38 GOAL: Increase strength Start Date: 08/06/19 Status: IN PROGRESS Entered by: PIA PAZ (CAUSTICISER) Date/Time Entered: 08/06/19@01:42:38 GOAL: Press Tender Goal Start Date: 08/06/19 Status: IN PROGRESS Entered by: PIA PAZ (CAUSTICISER) Date/Time Entered: 08/06/19@01:42:38 GOAL: Maintain range of motion Start Date: 08/06/19 Status: IN PROGRESS Entered by: PIA PAZ (CAUSTICISER) Date/Time Entered: 08/06/19@01:42:38 GOAL: Self care with assistance Start Date: 08/06/19 Status: IN PROGRESS Entered by: PIA PAZ (CAUSTICISER) Date/Time Entered: 08/06/19@01:42:38 GOAL: Short Term Goal Start Date: 08/06/19 Status: IN PROGRESS Entered by: PIA PAZ (CAUSTICISER) Date/Time Entered: 08/06/19@01:42:38 INTERVENTION: Anxiety reduction Start Date: 08/06/19 Discipline: NURSE Frequency: EVERY DAY Care Action: CONTINUE Entered by: PIA PAZ (CAUSTICISER) Date/Time Entered: 08/06/19@01:42:38 INTERVENTION: Encourage patient to be involved with activities of daily living Start Date: 08/06/19 Discipline: NURSE Frequency: EVERY DAY Care Action: CONTINUE Entered by: PIA PAZ (CAUSTICISER) Date/Time Entered: 08/06/19@01:42:38 INTERVENTION: Energy conservation Start Date: 08/06/19 Discipline: NURSE Frequency: EVERY DAY Care Action: CONTINUE Entered by: PIA PAZ (CAUSTICISER) Date/Time Entered: 08/06/19@01:42:38 INTERVENTION: Exercise Start Date: 08/06/19 Discipline: NURSE Frequency: EVERY DAY Care Action: CONTINUE Entered by: PIA PAZ (CAUSTICISER) Date/Time Entered: 08/06/19@01:42:38 INTERVENTION: Fall prevention Start Date: 08/06/19 Discipline: NURSE Frequency: EVERY DAY Care Action: CONTINUE Entered by: PIA PAZ (CAUSTICISER) Date/Time Entered: 08/06/19@01:42:38 INTERVENTION: Medications as ordered Start Date: 08/06/19 Discipline: NURSE Frequency: EVERY DAY Care Action: CONTINUE Entered by: PIA PAZ (CAUSTICISER) Date/Time Entered: 08/06/19@01:42:38 INTERVENTION: Notify physician as needed Start Date: 08/06/19 Discipline: NURSE Frequency: EVERY DAY Care Action: CONTINUE Entered by: PIA PAZ (CAUSTICISER) Date/Time Entered: 08/06/19@01:42:38 INTERVENTION: Observe skin Start Date: 08/06/19 Discipline: NURSE Frequency: EVERY DAY Care Action: CONTINUE Entered by: PIA PAZ (CAUSTICISER) Date/Time Entered: 08/06/19@01:42:38 INTERVENTION: Oral care Start Date: 08/06/19 Discipline: NURSE Frequency: EVERY DAY Care Action: CONTINUE Entered by: PIA PAZ (CAUSTICISER) Date/Time Entered: 08/06/19@01:42:38 INTERVENTION: Provide emotional support Start Date: 08/06/19 Discipline: NURSE Frequency: EVERY DAY Care Action: CONTINUE Entered by: PIA PAZ (CAUSTICISER) Date/Time Entered: 08/06/19@01:42:38 INTERVENTION: Range of motion Start Date: 08/06/19 Discipline: NURSE Frequency: EVERY DAY Care Action: CONTINUE Entered by: PIA PAZ (CAUSTICISER) Date/Time Entered: 08/06/19@01:42:38 INTERVENTION: Skin and perineal care Start Date: 08/06/19 Discipline: NURSE Frequency: EVERY DAY Care Action: CONTINUE Entered by: PIA PAZ (CAUSTICISER) Date/Time Entered: 08/06/19@01:42:38 INTERVENTION: Teach self care Start Date: 08/06/19 Discipline: NURSE Frequency: EVERY DAY Care Action: CONTINUE Entered by: PIA PAZ (CAUSTICISER) Date/Time Entered: 08/06/19@01:42:38 CATEGORY: Pain PROBLEM: Pain, acute Comments: Related to diagnosis: Related to medical condition: Start Date: 08/06/19 Status: ACTIVE Entered by: PIA PAZ (CAUSTICISER) Date/Time Entered: 08/06/19@01:42:42 GOAL: Keep patient informed Start Date: 08/06/19 Status: IN PROGRESS Entered by: PIA PAZ (CAUSTICISER) Date/Time Entered: 08/06/19@01:42:42 GOAL: Long-Term Goal Start Date: 08/06/19 Status: IN PROGRESS Entered by: PIA PAZ (CAUSTICISER) Date/Time Entered: 08/06/19@01:42:42 GOAL: Needs as appropriate Start Date: 08/06/19 Status: IN PROGRESS Entered by: PIA PAZ (CAUSTICISER) Date/Time Entered: 08/06/19@01:42:42 GOAL: Pain at tolerable level for patient Start Date: 08/06/19 Status: IN PROGRESS Entered by: PIA PAZ (CAUSTICISER) Date/Time Entered: 08/06/19@01:42:42 GOAL: Pain medication as needed Start Date: 08/06/19 Status: IN PROGRESS Entered by: PIA PAZ (CAUSTICISER) Date/Time Entered: 08/06/19@01:42:42 GOAL: Short Term Goal Start Date: 08/06/19 Status: IN PROGRESS Entered by: PIA PAZ (CAUSTICISER) Date/Time Entered: 08/06/19@01:42:42 INTERVENTION: Apply heat/ice Start Date: 08/06/19 Discipline: NURSE Frequency: EVERY DAY Care Action: CONTINUE Entered by: PIA PAZ (CAUSTICISER) Date/Time Entered: 08/06/19@01:42:42 INTERVENTION: Assess pain Start Date: 08/06/19 Discipline: NURSE Frequency: EVERY DAY Care Action: CONTINUE Entered by: PIA PAZ (CAUSTICISER) Date/Time Entered: 08/06/19@01:42:42 INTERVENTION: Assess response to medication Start Date: 08/06/19 Discipline: NURSE Frequency: EVERY DAY Care Action: CONTINUE Entered by: PIA PAZ (CAUSTICISER) Date/Time Entered: 08/06/19@01:42:42 INTERVENTION: Assess the amount of pain medication the patient is demanding when using BAR SUPERVISOR/ Epidural Start Date: 08/06/19 Discipline: NURSE Frequency: EVERY DAY Care Action: CONTINUE Entered by: PIA PAZ (CAUSTICISER) Date/Time Entered: 08/06/19@01:42:42 INTERVENTION: Dim lights Start Date: 08/06/19 Discipline: NURSE Frequency: EVERY DAY Care Action: CONTINUE Entered by: PIA PAZ (CAUSTICISER) Date/Time Entered: 08/06/19@01:42:42 INTERVENTION: Medications as ordered Start Date: 08/06/19 Discipline: NURSE Frequency: EVERY DAY Care Action: CONTINUE Entered by: PIA PAZ (CAUSTICISER) Date/Time Entered: 08/06/19@01:42:42 INTERVENTION: Notify physician as needed Start Date: 08/06/19 Discipline: NURSE Frequency: EVERY DAY Care Action: CONTINUE Entered by: PIA PAZ (CAUSTICISER) Date/Time Entered: 08/06/19@01:42:42 INTERVENTION: Provide calm environment Start Date: 08/06/19 Discipline: NURSE Frequency: EVERY DAY Care Action: CONTINUE Entered by: PIA PAZ (CAUSTICISER) Date/Time Entered: 08/06/19@01:42:42 INTERVENTION: Reposition Start Date: 08/06/19 Discipline: NURSE Frequency: EVERY DAY Care Action: CONTINUE Entered by: PIA PAZ (CAUSTICISER) Date/Time Entered: 08/06/19@01:42:42 CATEGORY: Pulmonary PROBLEM: Ineffective breathing, risk for Comments: Related to diagnosis: Related to medical condition: Start Date: 08/06/19 Status: ACTIVE Entered by: PIA PAZ (CAUSTICISER) Date/Time Entered: 08/06/19@01:42:55 GOAL: Improved gas exchange Start Date: 08/06/19 Status: IN PROGRESS Entered by: PIA PAZ (CAUSTICISER) Date/Time Entered: 08/06/19@01:42:55 GOAL: Improved tissue perfusion Start Date: 08/06/19 Status: IN PROGRESS Entered by: PIA PAZ (CAUSTICISER) Date/Time Entered: 08/06/19@01:42:55 GOAL: Long-Term Goal Start Date: 08/06/19 Status: IN PROGRESS Entered by: PIA PAZ (CAUSTICISER) Date/Time Entered: 08/06/19@01:42:55 GOAL: Patent airway Start Date: 08/06/19 Status: IN PROGRESS Entered by: PIA PAZ (CAUSTICISER) Date/Time Entered: 08/06/19@01:42:55 GOAL: Patient states decrease in anxiety Start Date: 08/06/19 Status: IN PROGRESS Entered by: PIA PAZ (CAUSTICISER) Date/Time Entered: 08/06/19@01:42:55 GOAL: Short Term Goal Start Date: 08/06/19 Status: IN PROGRESS Entered by: PIA PAZ (CAUSTICISER) Date/Time Entered: 08/06/19@01:42:55 GOAL: Verbalized understanding of smoking cessation Start Date: 08/06/19 Status: IN PROGRESS Entered by: PIA PAZ (CAUSTICISER) Date/Time Entered: 08/06/19@01:42:55 GOAL: Vital signs stable Start Date: 08/06/19 Status: IN PROGRESS Entered by: PIA PAZ (CAUSTICISER) Date/Time Entered: 08/06/19@01:42:55 INTERVENTION: Anxiety reduction Start Date: 08/06/19 Discipline: NURSE Frequency: EVERY DAY Care Action: CONTINUE Entered by: PIA PAZ (CAUSTICISER) Date/Time Entered: 08/06/19@01:42:55 INTERVENTION: Aspiration precautions Start Date: 08/06/19 Discipline: NURSE Frequency: EVERY DAY Care Action: CONTINUE Entered by: PIA PAZ (CAUSTICISER) Date/Time Entered: 08/06/19@01:42:55 INTERVENTION: Head of bed elevated Start Date: 08/06/19 Discipline: NURSE Frequency: EVERY DAY Care Action: CONTINUE Entered by: PIA PAZ (CAUSTICISER) Date/Time Entered: 08/06/19@01:42:Stan INTERVENTION: Incentive spirometry Start Date: 08/06/19 Discipline: NURSE Frequency: EVERY DAY Care Action: CONTINUE Entered by: PIA PAZ (CAUSTICISER) Date/Time Entered: 08/06/19@01:42:Stan INTERVENTION: Medications as ordered Start Date: 08/06/19 Discipline: NURSE Frequency: EVERY DAY Care Action: CONTINUE Entered by: PIA PAZ (CAUSTICISER) Date/Time Entered: 08/06/19@01:42:55 INTERVENTION: Monitor airway and breathing Start Date: 08/06/19 Discipline: NURSE Frequency: EVERY DAY Care Action: CONTINUE Entered by: PIA PAZ (CAUSTICISER) Date/Time Entered: 08/06/19@01:42:Stan INTERVENTION: Monitor changes in mental status Start Date: 08/06/19 Discipline: NURSE Frequency: EVERY DAY Care Action: CONTINUE Entered by: PIA PAZ (CAUSTICISER) Date/Time Entered: 08/06/19@01:42:55 INTERVENTION: Notify physician as needed Start Date: 08/06/19 Discipline: NURSE Frequency: EVERY DAY Care Action: CONTINUE Entered by: PIA PAZ (CAUSTICISER) Date/Time Entered: 08/06/19@01:42:55 INTERVENTION: Oxygen therapy Start Date: 08/06/19 Discipline: NURSE Frequency: EVERY DAY Care Action: CONTINUE Entered by: PIA PAZ (CAUSTICISER) Date/Time Entered: 08/06/19@01:42:55 INTERVENTION: Pain control Start Date: 08/06/19 Discipline: NURSE Frequency: EVERY DAY Care Action: CONTINUE Entered by: PIA PAZ (CAUSTICISER) Date/Time Entered: 08/06/19@01:42:55 INTERVENTION: Pulse oximetry Start Date: 08/06/19 Discipline: NURSE Frequency: EVERY DAY Care Action: CONTINUE Entered by: PIA PAZ (CAUSTICISER) Date/Time Entered: 08/06/19@01:42:55 INTERVENTION: Turn, cough and deep breathing Start Date: 08/06/19 Discipline: NURSE Frequency: EVERY DAY Care Action: CONTINUE Entered by: PIA PAZ (CAUSTICISER) Date/Time Entered: 08/06/19@01:42:55 INTERVENTION: Vital signs Start Date: 08/06/19 Discipline: NURSE Frequency: EVERY DAY Care Action: CONTINUE Entered by: PIA PAZ (CAUSTICISER) Date/Time Entered: 08/06/19@01:42:55 CATEGORY: Safety PROBLEM: Fall/injury Comments: Related to diagnosis: Related to medical condition: Start Date: 08/06/19 Status: ACTIVE Entered by: PIA PAZ (CAUSTICISER) Date/Time Entered: 08/06/19@01:42:48 GOAL: Long-Term Goal Start Date: 08/06/19 Status: IN PROGRESS Entered by: PIA PAZ (CAUSTICISER) Date/Time Entered: 08/06/19@01:42:48 GOAL: Maintain skin integrity Start Date: 08/06/19 Status: IN PROGRESS Entered by: PIA PAZ (CAUSTICISER) Date/Time Entered: 08/06/19@01:42:48 GOAL: Patient safety Start Date: 08/06/19 Status: IN PROGRESS Entered by: PIA PAZ (CAUSTICISER) Date/Time Entered: 08/06/19@01:42:48 GOAL: Patient/patient enrollment representative verbalized understanding on fall and injury prevention Start Date: 08/06/19 Status: IN PROGRESS Entered by: PIA PAZ (CAUSTICISER) Date/Time Entered: 08/06/19@01:42:48 GOAL: Prevent injury Start Date: 08/06/19 Status: IN PROGRESS Entered by: PIA PAZ (CAUSTICISER) Date/Time Entered: 08/06/19@01:42:48 GOAL: Short Term Goal Start Date: 08/06/19 Status: IN PROGRESS Entered by: PIA PAZ (CAUSTICISER) Date/Time Entered: 08/06/19@01:42:48 INTERVENTION: Bed in low position Start Date: 08/06/19 Discipline: NURSE Frequency: EVERY DAY Care Action: CONTINUE Entered by: PIA PAZ (CAUSTICISER) Date/Time Entered: 08/06/19@01:42:48 INTERVENTION: Diversion Start Date: 08/06/19 Discipline: NURSE Frequency: EVERY DAY Care Action: CONTINUE Entered by: PIA PAZ (CAUSTICISER) Date/Time Entered: 08/06/19@01:42:48 INTERVENTION: Emotional support Start Date: 08/06/19 Discipline: NURSE Frequency: EVERY DAY Care Action: CONTINUE Entered by: PIA PAZ (CAUSTICISER) Date/Time Entered: 08/06/19@01:42:48 INTERVENTION: Follow high risk fall protocol Start Date: 08/06/19 Discipline: NURSE Frequency: EVERY DAY Care Action: CONTINUE Entered by: PIA PAZ (CAUSTICISER) Date/Time Entered: 08/06/19@01:42:48 INTERVENTION: Medications as ordered Start Date: 08/06/19 Discipline: NURSE Frequency: EVERY DAY Care Action: CONTINUE Entered by: PIA PAZ (CAUSTICISER) Date/Time Entered: 08/06/19@01:42:48 INTERVENTION: Notify physician as needed Start Date: 08/06/19 Discipline: NURSE Frequency: EVERY DAY Care Action: CONTINUE Entered by: PIA PAZ (CAUSTICISER) Date/Time Entered: 08/06/19@01:42:48 INTERVENTION: Provide a safe environment Start Date: 08/06/19 Discipline: NURSE Frequency: EVERY DAY Care Action: CONTINUE Entered by: PIA PAZ (CAUSTICISER) Date/Time Entered: 08/06/19@01:42:48 INTERVENTION: Strict fall precautions Start Date: 08/06/19 Discipline: NURSE Frequency: EVERY DAY Care Action: CONTINUE Entered by: PIA PAZ (CAUSTICISER) Date/Time Entered: 08/06/19@01:42:48 INTERVENTION: Vital signs remain stable Start Date: 08/06/19 Discipline: NURSE Frequency: EVERY DAY Care Action: CONTINUE Entered by: PIA PAZ (CAUSTICISER) Date/Time Entered: 08/06/19@01:42:48 * Legacy Note - Geneva Melendez RN - 08/04/2020 3:16 PM EST 1. Wish to be Person endorses thoughts about a wish to be or not alive anymore, or wish to fall asleep and not wake up Have you wished you were or wished you could go to sleep and never wake up? No Non-Specific Active Suicidal Thoughts (Past Month) General, non-specific thoughts of wanting to end one's life/commit suicide (e.g., I've thought about killing myself ) without thoughts of ways to kill oneself/associated methods, intent, or plan. Have you had any thoughts about killing yourself? No * Legacy Note - Geneva Melendez RN - 08/04/2020 3:15 PM EST Patient assessment: Influenza Vaccine (June - November) Patient's age: 49 Adult patient (18 years of age or older) Contraindications Influenza vaccine is not indicated if: Patient/parent/legal guardian declined Pneumococcal Vaccine (PCV-13) (Year Round) Patient's age: 49 Contraindications Pneumococcal vaccine is not indicated if: Patient/parent/legal guardian declined * Legacy Note - Geneva Melendez RN - 08/04/2020 3:15 PM EST ADVANCE DIRECTIVES ASSESSMENT: The patient does not have an advance directive. Patient IS NOT interested in discussing advance directive options. Level of Support: LEVEL I Status: FULL CODE The patient is a Full Code and is to receive all available therapy including CPR. Ordering Provider: DR BREWSTER (See Orders Tab for Code Status Order) documented in this encounter Plan of Treatment Not on file documented as of this encounter Procedures Procedure Name Priority Date/Time Associated Diagnosis Comments POCT GLUCOSE PERFORMABLE Routine 08/05/2020 5:47 AM EST POCT GLUCOSE PERFORMABLE Routine 08/05/2020 1:58 AM EST POCT GLUCOSE PERFORMABLE Routine 08/05/2020 12:18 AM EST POCT GLUCOSE PERFORMABLE Routine 08/04/2020 10:38 PM EST POCT GLUCOSE PERFORMABLE Routine 08/04/2020 4:20 PM EST POCT GLUCOSE PERFORMABLE Routine 08/04/2020 8:31 AM EST HISTORICAL SURGICAL PATHOLOGY CASE - LEGACY Routine 08/04/2020 documented in this encounter Results * (ABNORMAL) POCT glucose meter (08/05/2020 5:47 AM EST) Glucose 301(H) 70 - 110 MG/DL 08/05/2020 5:47 AM EST [facility] 08/05/2020 5:47 AM EST 08/05/2020 6:02 AM EST Joe Brewster MD LAB POINT OF CARE T EST DOCKED DEVICE UNSOLICITED RESULTS [facility] [address] * (ABNORMAL) POCT glucose meter (08/05/2020 1:58 AM EST) Glucose 383(H) 70 - 110 MG/DL 08/05/2020 1:58 AM EST [facility] 08/05/2020 1:58 AM EST 08/05/2020 2:14 AM EST Joe Brewster MD LAB POINT OF CARE T EST DOCKED DEVICE UNSOLICITED RESULTS Performing Organization Address [facility] Phone Number [facility] [address] [place] [address], * (ABNORMAL) POCT glucose meter (08/05/2020 12:18 AM EST) Glucose 464(HH) 70 - 110 MG/DL 08/05/2020 12:18 AM EST [facility] 08/05/2020 12:1 8 AM EST 08/05/2020 12:33 AM EST Joe Brewster MD LAB POINT OF CARE T EST DOCKED DEVICE UNSOLICITED RESULTS Performing Organization Address [facility] Phone [facility] [address] [place] [address], * (ABNORMAL) POCT glucose meter (08/04/2020 10:38 PM EST) Glucose 434(HH) 70 - 110 MG/DL 08/04/2020 10:38 PM EST [facility] 08/04/2020 10:3 8 PM EST 08/04/2020 10:54 PM EST Joe Brewster MD LAB POINT OF CARE T EST DOCKED DEVICE UNSOLICITED RESULTS Performing Organization Address [facility] Phone [facility] [address] [place] [address], * (ABNORMAL) POCT glucose meter (08/04/2020 4:20 PM EST) Glucose 292(H) 70 - 110 MG/DL 08/04/2020 4:20 PM EST [facility] 08/04/2020 4:20 PM EST 08/04/2020 4:38 PM EST Joe Brewster MD LAB POINT OF CARE T EST DOCKED DEVICE UNSOLICITED RESULTS Performing Organization Address [facility] Phone Number [facility] [address] [place] [address], * (ABNORMAL) POCT glucose meter (08/04/2020 8:31 AM EST) Glucose 147(H) 70 - 110 MG/DL 08/04/2020 8:31 AM EST [facility] 08/04/2020 8:31 AM EST 08/04/2020 8:49 AM EST Joe Brewster MD LAB POINT OF CARE T EST DOCKED DEVICE UNSOLICITED RESULTS [facility] [address] * Historical Surgical Pathology Case (08/04/2020) Tissue 08/04/2020 08/04/2020 Narrative [facility] - 08/04/2020 DIAGNOSIS 1. ??[place] Lymph Node #1, Excision (1FS1): ? -One lymph node is negative for malignancy. ??2. ??[place] Lymph Node #2, Excision (2FS1): ? -One lymph node is negative for malignancy. ??3. ??[place] Lymph Node #3, Excision: ? -One lymph node is negative for malignancy. ??4. Right Breast, Mastectomy: ? 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 See comment. ? -Prior procedure site changes. ? -Microcalcifications present in invasive carcinoma and non-neoplastic tissue. ? -Uninvolved breast with sclerosing adenosis. ??ADDENDUMThis addendum is issued to report the results of the Ki-67 immunostain which was performed with -appropriate reactive control by [facility] and interpreted by Dr. Hernandez.-Results: ??Ki-67 shows approximately 10% proliferation rate. ?? 3005-TISSUE SUBMITTED: ? BREAST , RIGHT,SURGICAL EXCISION GROSS DESCRIPTION Specimen one is received fresh in a container labeled with the patient's name, accession number and sentinel node #1, consists of a single fragment of goins- yellow adipose tissue measuring 3 x 3 x 0.7 cm. ??The specimen is examined revealing the presence of one goins lymph node measuring 1 x 1 x 0.4 cm. The lymph node is bisected and one half is submitted for frozen section examination as 1FS1. The results of negative for macrometastasis were called to Dr. Brewster by Dr. Hernandez at 2:23 p.m. The residual tissue from the frozen section is submitted in cassette 1FS1. The unfrozen portion of the lymph node is submitted in cassette 1A. Specimen two is received fresh in a container labeled with the patient's name, accession number and sentinel node #2, consists of a single round fragment of goins-yellow adipose tissue measuring 1.5 x 1.5 x 0.8 cm. ??The specimen is sectioned revealing the presence of one goins lymph node measuring 1.4 x 1.2 x 0.7 cm. The specimen is bisected. One half is submitted for frozen section examination as 2FS1. The results of negative for macrometastasis were called to Dr. Brewster by Dr. Hernandez at 2:23 p.m. The residual tissue from the frozen section is submitted in cassette 2A. ??The specimen is entirely submitted. Specimen three is received fresh in a container labeled with the patient's name, accession number and sentinel node #3, consists of a single irregularly shaped fragment of rubbery to soft goins-yellow adipose tissue measuring 2.4 x 3 x 0.7 cm. The specimen is sectioned revealing the presence of one round goins-pink lymph node measuring 1.5 x1 .5 x 1 cm. The lymph node is sectioned and entirely submitted in cassettes 3A-B. The adipose tissue is retained in the specimen container. ??Specimen four is received in formalin in a container labeled with the patient's name, accession number and right breast, is an unoriented mastectomy specimen weighing 886 grams. The specimen measures 21 x 17 cm and excised to a depth of 4 cm. The ellipse of goins-white skin measures 14.5 x 8 cm. The areola measures 4 x 3.5 cm. The nipple is not inverted and measures 1 cm in diameter. The anterior/superior margin is inked in green. The inferior margin is inked in blue and the posterior margin is inked in black. The breast is sectioned revealing a metal clip in the central slightly superior aspect of the breast. The inferior and lateral has a firm goins-white mass. The mass measures 1.5 cm (superior to inferior) by 1.5 cm (anterior to posterior) by 1.5 cm (medial to lateral). The mass is located 0.5 cm from the nearest posterior margin. The remaining breast parenchyma shows areas of goins-white fibrosis mixed with goins-yellow adipose tissue. Sections will be submitted following overnight fixation. There is a looped metal wire/biopsy clip within the mass. There is a cylindrically shaped piece of metal superior and medial to the mass. Treating Plant Operator sections are submitted as follows: cassette 4A is mass and nearest posterior margin, cassettes 4B-C are sections of the mass, cassettes 4D is a section of the mass which contains the looped biopsy clip, cassette 4E is a section of fibrous tissue that contains the cylindrically shaped metal clip, cassette 4F is the inferior/lateral quadrant, cassette 4G is the superior/lateral quadrant, cassette 4H is the inferior/medial quadrant, cassette 4I is the superior/medial quadrant, cassette 4J is nipple, and cassette 4K is a section of skin to include the skin margin. ? HEA/cm MICROSCOPIC DESCRIPTION Tissue blocks are prepared and slides are examined microscopically on all specimens. The results of the Ki-67 immunohistochemical stain will be reported in an addendum. ??See diagnosis for details. Dr. Dante Guadalupe has reviewed the case and concurs with the diagnosis. ??[id number], [id number], [id number] INTRAOPERATION CONSULT 1. ??[place] Lymph Node #1, Excision (1FS1): ? -Negative for macrometastasis. ??2. ??[place] Lymph Node #2, Excision (2FS1): ? -Negative for macrometastasis. ?? PREVIOUS FINAL DIAGNOSIS 1. ??[place] Lymph Node #1, Excision (1FS1): ? -One lymph node is nega1. ??[place] Lymph Node #1, Excision (1FS1): ? -One lymph node is negative for malignancy. ??2. ??[place] Lymph Node #2, Excision (2FS1): ? -Otive for malignancy. ??2. ?? [place] Lymph Node #2, Excision (2FS1): ? -One lymph node is negative for malignancy. ??3. ??[place] Lymph Node #3, Excne lymph node is negative for malignancy. ??3. ??[place] Lymph Node #3, Excision: ? -One lymph node is negative for malignancy. ??4. Right Breast, ision: ? -One lymph node is negative for malignancy. ??4. Right Breast, Mastectomy: ? -Invasive ductal carcinoma, grade 2, measuring 15 mm; margiMastectomy: ? 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 See comment. ? -Prior procedure site changes. ? - Microns negative. See comment. ? -Prior procedure site changes. ? -Microcalcifications present in invasive carcinoma and non-neoplastic tissue. ?? calcifications present in invasive carcinoma and non-neoplastic tissue. ? -Uninvolved breast with sclerosing adenosis. ? -Uninvolved breast with sclerosing adenosis. ?? SoftPath Case:[id number] Joe Brewster MD LAB PATHOLOGY ORDER DIALLO [facility] [address] documented in this encounter Visit Diagnoses Diagnosis Malignant neoplasm of overlapping sites of right female breast Benign neoplasm of lymph nodes Hyperlipidemia, unspecified Essential (primary) hypertension Unspecified essential hypertension Gastro-esophageal reflux disease without esophagitis Other chronic pain Dorsalgia, unspecified Restless legs syndrome Restless legs syndrome (RLS) Type 2 diabetes mellitus without complications Personal history of nicotine dependence Obesity, unspecified Body mass index (BMI) 36.0-36.9, adult Bee allergy status Latex allergy status Allergy status to other drugs, medicaments and biological substances Allergy to other foods [facility] (current) use of oral hypoglycemic drugs [facility] (current) use of non-steroidal anti-inflammatories (nsaid) director long term care (current) use of opiate analgesic Other [facility] (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 documented in this encounter Care Teams Picker And Packer Relationship Specialty Start Date End Date Ricardo Contreras MD [address] [place] [address] PCP - General documented as of this encounter
--- OUTSIDE RECORDS SUMMARY | 2024-08-18 13:14 | XMS_ITS | Encounter Summary ---
Author Organization [facility] nter Address [address] [place] [address] [place] [address] Care Team Providers Care Automobile Body Repair Chief Name Role Phone Ricardo Contreras MD Primary Care Provider + Encounter Details Date Type Department Care Team (Latest Contact Info) Description 04/08/2020 12:01 AM EDT - 04/08/2020 11:59 PM EDT Hospital Encounter [facility] [address] [place] [address] Ricardo Contreras MD [address] [place] [address] Encounter for screening mammogram for malignant neoplasm of breast Discharge Disposition: Home or Self Care [...] Priority Date/Time Associated Diagnosis Comments BI MAMMOGRAM SCREENING TOMOSYNTHESIS BILATERAL Routine 04/08/2020 9:04 AM EDT BI MAMMOGRAM SCREENING BILATERAL Routine 04/08/2020 9:04 AM EDT documented in this encounter Results * BI Screening mammogram with tomosynthesis bilateral (04/08/2020 9:04 AM EDT) Anatomical Region Laterality Modality Breast Bilateral Mammography 04/08/2020 9:04 AM EDT Narrative 04/08/2020 9:42 AM EDT PROCEDURE: MA MAMMO SCREENING ORLIN W/JORGE A: 04/08/2020 CLINICAL INFORMATION: screening Interpretation was made with the benefit of CAD and ??Tomosynthesis. COMPARISON: 11/15/2012 BREAST DENSITY: The breast tissue is heterogeneously dense. ??This may lower the sensitivity of mammography. FINDINGS: There is no evidence of suspicious calcification or architectural distortion. Development of a right breast mass at the approximate 12:00 position. Skin thickness nipple shadows are normal in appearance. Impression: No mammographic evidence of malignancy. BIRADS: BIRADS 0. Further imaging evaluation required. RECOMMENDATION: Spot compression views of the right breast in the ??CC and MLO projection as well as a 90 degree lateral. Right breast ultrasound. Your x-ray mammogram shows that your breast [...] new physician and/or supplier. Report Sign Date: 04/08/2020 9:39 AM, Electronically Signed By: ??Roverto Rucker MD Procedure Note Roverto Rucker MD - 11/25/2021 PROCEDURE: MA MAMMO SCREENING ORLIN W/JORGE A: 04/08/2020 CLINICAL INFORMATION: screening Interpretation was made with the benefit of CAD and Tomosynthesis. COMPARISON: 11/15/2012 BREAST DENSITY: The breast tissue is heterogeneously dense. This maylower the sensitivity of mammography. FINDINGS: There is no evidence of suspicious calcification orarchitectural distortion. Development of a right breast mass at theapproximate 12:00 position. Skin thickness nipple shadows are normal inappearance. Impression: No mammographic evidence of malignancy. BIRADS: BIRADS 0. Further imaging evaluation required. RECOMMENDATION: Spot compression views of the right breast in the CC and MLO projection as well as a 90 degree lateral. Right breastultrasound. Your x-ray mammogram shows that your breast [...] new physician and/or supplier. Report Sign Date: 04/08/2020 9:39 AM, Electronically Signed By: Roverto Rucker MD Ricardo Contreras MD [facility] BI PROCEDURE S * BI Screening mammogram bilateral (04/08/2020 9:04 AM EDT) Anatomical Region Laterality Modality Breast Bilateral Mammography 04/08/2020 9:04 AM EDT Narrative 04/08/2020 9:42 AM EDT PROCEDURE: MA MAMMO SCREENING ORLIN W/JORGE A: 04/08/2020 CLINICAL INFORMATION: screening Interpretation was made with the benefit of CAD and ??Tomosynthesis. COMPARISON: 11/15/2012 BREAST DENSITY: The breast tissue is heterogeneously dense. ??This may lower the sensitivity of mammography. FINDINGS: There is no evidence of suspicious calcification or architectural distortion. Development of a right breast mass at the approximate 12:00 position. Skin thickness nipple shadows are normal in appearance. Impression: No mammographic evidence of malignancy. BIRADS: BIRADS 0. Further imaging evaluation required. RECOMMENDATION: Spot compression views of the right breast in the ??CC and MLO projection as well as a 90 degree lateral. Right breast ultrasound. Your x-ray mammogram shows that your breast [...] new physician and/or supplier. Report Sign Date: 04/08/2020 9:39 AM, Electronically Signed By: ??Roverto Rucker MD Procedure Note Roverto Rucker MD - 11/25/2021 PROCEDURE: MT MAMMO SCREENING ORLIN W/JORGE A: 04/08/2020 CLINICAL INFORMATION: screening Interpretation was made with the benefit of CAD and Tomosynthesis. COMPARISON: 11/15/2012 BREAST DENSITY: The breast tissue is heterogeneously dense. This maylower the sensitivity of mammography. FINDINGS: There is no evidence of suspicious calcification orarchitectural distortion. Development of a right breast mass at theapproximate 12:00 position. Skin thickness nipple shadows are normal inappearance. Impression: No mammographic evidence of malignancy. BIRADS: BIRADS 0. Further imaging evaluation required. RECOMMENDATION: Spot compression views of the right breast in the CC and MLO projection as well as a 90 degree lateral. Right breastultrasound. Your x-ray mammogram shows that your breast [...] new physician and/or supplier. Report Sign Date: 04/08/2020 9:39 AM, Electronically Signed By: Roverto Rucker MD Ricardo Contreras MD [facility] BI PROCEDURE S documented in this encounter Visit Diagnoses Diagnosis Encounter for screening mammogram for malignant neoplasm of breast documented in this encounter Care Teams Automobile Body Repair Chief Relationship Specialty Start Date End Date Ricardo Contreras MD [address] [place] [address] PCP - General documented as of this encounter
--- OUTSIDE RECORDS SUMMARY | 2024-08-18 13:14 | XMS_ITS | Encounter Summary ---
Author Organization [facility] nter Address [address] [place], [place] [id number] [place], [place] [id number] Care Team Providers Care Produce Team Member Name Role Phone Ricardo Contreras MD Primary Care Provider + Encounter Details Date Type Department Care Team (Latest Contact Info) Description 09/16/2020 11:59 AM EST - 09/16/2020 11:59 PM EST Hospital Encounter [facility] [address] [place] [address] Lesly Collazo, SARA [address] [place] [phone] Malignant neoplasm of unspecified site of right female breast (CMS/HCC); Postprocedural seroma of skin and subcutaneous tissue following other procedure Discharge Disposition: Home or Self Care Social [...] Name Priority Date/Time Associated Diagnosis Comments BI US BREAST LIMITED RIGHT Routine 09/16/2020 12:24 PM EST documented in this encounter Results * Right breast US limited (09/16/2020 12:24 PM EST) Anatomical Region Laterality Modality Breast Right Ultrasound 09/16/2020 12:2 4 PM EST Narrative 09/16/2020 2:01 PM EST PROCEDURE: US BREAST RT : 09/16/2020 CLINICAL INFORMATION: ??-- COMPARISON: ??None. There is a reported history of mastectomy. ?? Along the right chest wall, at the 4 o'clock position, there is a large fluid collection with internal complexity measuring at least 6 cm. This shows internal echoes and septations. This appears contiguous with additional collection along the 8 o'clock position measuring 5 cm.. Impression: Large complex fluid collections with internal septations and debris are seen involving the right breast status post mastectomy. Differential considerations favor postoperative seroma or evolving/old hematoma. Infection cannot be excluded.. ??Clinical correlation and follow-up imaging is suggested. Report Sign Date: 09/16/2020 1:59 PM, Electronically Signed By: ??Sang George MD Procedure Note Sang George MD - 11/25/2021 PROCEDURE: US BREAST RT : 09/16/2020 CLINICAL INFORMATION: -- COMPARISON: None. There is a reported history of mastectomy. Along the right chest wall, at the 4 o'clock position, there is a largefluid collection with internal complexity measuring at least 6 cm. Thisshows internal echoes and septations. This appears contiguous withadditional collection along the 8 o'clock position measuring 5 cm.. Impression: Large complex fluid collections with internal septations and debris areseen involving the right breast status post mastectomy. Differentialconsiderations favor postoperative seroma or evolving/old hematoma.Infection cannot be excluded.. Clinical correlation and follow-up imaging is suggested. Report Sign Date: 09/16/2020 1:59 PM, Electronically Signed By: Sang George MD Lesly Collazo NP [facility] US PROCEDURES documented in this encounter Visit Diagnoses Diagnosis Malignant neoplasm of unspecified site of right female breast Postprocedural seroma of skin and subcutaneous tissue following other procedure documented in this encounter Care Teams Produce Team Member Relationship Specialty Start Date End Date Ricardo Contreras MD [address] [place] [address] PCP - General documented as of this encounter
--- OUTSIDE RECORDS SUMMARY | 2024-08-18 13:14 | XMS_ITS | Encounter Summary ---
Author Organization [facility] nter Address [address] [place] [address] [place] [id number] Care Team Providers Care Synthetic Gem Press Operator Name Role Phone Ricardo Contreras MD Primary Care Provider + Encounter Details Date Type Department Care Team (Latest Contact Info) Description 08/31/2020 10:48 AM EST - 08/31/2020 11:59 PM EST Hospital Encounter [facility] [address] [place] [id number] Lesly Collazo NP [address] [place] [phone] Encounter for other specified surgical aftercare Discharge [...] aftercare documented in this encounter Care Teams Synthetic Gem Press Operator Relationship Specialty Start Date End Date Ricardo Contreras MD [address] [place] [address] PCP - General documented as of this encounter
--- OUTSIDE RECORDS SUMMARY | 2024-08-18 13:14 | XMS_ITS | Encounter Summary ---
Author Organization [facility] nter Address [address] [place] [address] [place] [id number] Care Team Providers Care Home Care Attendant Name Role Phone Ricardo Contreras MD Primary Care Provider + Encounter Details Date Type Department Care Team (Late st Contact Info) Description 04/30/2020 12:01 AM EDT - 04/30/2020 11:59 PM EDT Hospital Encounter [facility] [address] [place] [id number] Ricardo Contreras MD [address] [place] [address] Social History Tobacco Use Types Packs/Day Years [...] on filedocumented in this encounter Care Teams Home Care Attendant Relationship Specialty Start Date End Date Ricardo Contreras MD [address] [place] [address] PCP - General documented as of this encounter
--- OUTSIDE RECORDS SUMMARY | 2024-08-18 13:14 | XMS_ITS | Encounter Summary ---
Author Organization [facility] nter Address [address] [place], [place] [id number] [place], [place] [id number] Care Team Providers Care Data Keyer Name Role Phone Ricardo Contreras MD Primary Care Provider + Encounter Details Date Type Department Care Team (Latest Contact Info) Description 07/31/2020 11:06 AM EST - 07/31/2020 11:59 PM EST Hospital Encounter PMC CONVERSION OUTPATIENT [address] [place] [address] Joe Brewster MD [address] [place] [id number] Contact with and (suspected) exposure to other viral communicable diseases Discharge Disposition: Home or Self Care Social [...] Procedure Name Priority Date/Time Associated Diagnosis Comments SARS-COV-2, LUCRECIA (REFERENCE LAB) Routine 07/31/2020 11:14 AM EST SCANNED LAB RESULT 07/31/2020 documented in this encounter Results * SARS-CoV-2, LUCRECIA (Reference Lab) (07/31/2020 11:14 AM EST) SARS-CoV-2 see below 08/02/2020 6:50 AM EST [facility] Comment: NEGATIVE NORMAL RANGE = NEGATIVE TESTING PERFORMED BY [facility] [address] [place] [phone] PHONE = 07/31/2020 11:1 4 AM EST 07/31/2020 11:42 AM EST Joe Brewster MD LAB BLOOD ORDERABLE S [facility] [address] * SCANNED LAB RESULT (07/31/2020) Narrative 07/31/2020 Ordered by an unspecified provider. Default Authenticator Peter LAB BLOOD VIKAFlorence WOLFF documented in this encounter Visit Diagnoses Diagnosis Contact with and (suspected) exposure to other viral communicable diseases documented in this encounter Care Teams Data Keyer Relationship Specialty Start Date End Date Ricardo Contreras MD [address] [place] [address] PCP - General documented as of this encounter
--- OUTSIDE RECORDS SUMMARY | 2024-08-18 13:14 | XMS_ITS | Encounter Summary ---
Author Organization [facility] nter Address [address] [place], [place] [id number] [place], [place] [id number] Care Team Providers Care Group Billing Coordinator Name Role Phone Ricardo Contreras MD Primary Care Provider + Encounter Details Date Type Department Care Team (Late st Contact Info) Description 03/23/2020 7:08 AM EDT - 03/23/2020 11:59 PM EDT Hospital Encounter PMC CONVERSION OUTPATIENT [address] [place] [address] Ubaldo Yuen, DO [address] [place] [address] Social History Tobacco Use Types Packs/Day Years [...] on filedocumented in this encounter Care Teams Group Billing Coordinator Relationship Specialty Start Date End Date Ricardo Contreras MD [address] [place] [address] PCP - General documented as of this encounter
--- OUTSIDE RECORDS SUMMARY | 2024-08-18 13:14 | XMS_ITS | Encounter Summary ---
Author Organization [facility] nter Address [address] [place] [address] Care Team Providers Care Coil Winding Machines Set Up Mechanic Name Role Phone Ricardo Contreras MD Primary Care Provider + Encounter Details Date Type Department Care Team (Latest Contact Info) Description 09/21/2020 4:24 PM EST - 09/21/2020 9:59 PM EST Hospital Encounter PMC CONVERSION OUTPATIENT [address] [place] [address] Jose Barkley MD [address] [place] [address] Encounter for change or removal of surgical wound dressing; Acquired absence of right breast and nipple; Type 2 diabetes mellitus without complications (CMS/HCC); Essential (primary) hypertension; Other chronic pain; Dorsalgia, unspecified; 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; 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 (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 Discharge Disposition: Home or [...] Date/Time Associated Diagnosis Comments GFR CALCULATED Routine 09/21/2020 9:02 PM EST BASIC METABOLIC PANEL Routine 09/21/2020 9:02 PM EST CBC WITH AUTO DIFFERENTIAL Routine 09/21/2020 8:05 PM EST SEDIMENTATION RATE, AUTOMATED Routine 09/21/2020 8:[address] CHEST W AND WO IV CONTRAST Routine 09/21/2020 7:56 PM EST POCT CHM8 PERFORMABLE Routine 09/21/2020 7:24 PM EST C-REACTIVE PROTEIN, QUANTITATIVE Routine 09/21/2020 7:20 PM EST LACTIC ACID, VENOUS Routine 09/21/2020 7 :20 PM EST documented in this encounter Results * (ABNORMAL) GFR CALCULATED (09/21/2020 9:02 PM EST) eGFR 43.7(L) 60.0 - 200.0 ML/MIN 09/21/2020 9:35 PM EST [facility] 09/21/2020 9:02 PM EST 09/21/2020 9:02 PM EST [facility] CHG PERFORMABLES [facility] [address] * (ABNORMAL) Basic metabolic panel (09/21/2020 9:02 PM EST) Calcium 9.0 8.5 - 10.1 mg/dL 09/21/2020 9:35 PM EST [facility] Chloride 106 98 - 107 mmol/L 09/21/2020 9:35 PM EST [facility] CO2 24 21 - 32 mmol/L 09/21/2020 9:35 PM EST [facility] Creatinine 1.30 0.60 - 1.30 MG/DL 09/21/2020 9:35 PM EST [facility] Potassium 4.0 3.6 - 5.2 mmol/L 09/21/2020 9:35 PM EST [facility] Sodium 137 133 - 144 mmol/L 09/21/2020 9:35 PM [facility] BUN 13 7 - 18 MG/DL 09/21/2020 9:35 PM [facility] Glucose 199(H) 70 - 110 MG/DL 09/21/2020 9:35 PM [facility] 09/21/2020 9:02 PM EST 09/21/2020 9:09 PM EST [facility] BLOOD ORDERABLES [facility] [address] * (ABNORMAL) CBC auto differential (09/21/2020 8:05 PM EST) Platelets 192 122 - 454 K/ul 09/21/2020 8:34 PM [facility] RBC 4.700 3.450 - 5.400 M/ul 09/21/2020 8:34 PM [facility] MCV 79.3 78.2 - 101.8 fl 09/21/2020 8:34 PM [facility] MCH 25.8(L) 26.4 - 33.3 pg 09/21/2020 8:34 PM [facility] MCHC 32.6 32.5 - 35.3 g/dL 09/21/2020 8:34 PM [facility] RDW 14.8 10.1 - 16.2 % 09/21/2020 8:34 PM [facility] MPV 8.7 6.4 - 10.4 fl 09/21/2020 8:34 PM [facility] Neutrophils % 48.6 43.0 - 83.0 % 09/21/2020 8:34 PM [facility] Neutrophils Absolute 5.6 2.7 - 6.9 K/ul 09/21/2020 8:34 PM [facility] Clumped Platelets PRESENT(A ) 09/21/2020 8:34 PM [facility] Auto WBC 11.60(H) 3.00 - 11.30 K/ul 09/21/2020 8:34 PM [facility] nRBC 0.10 09/21/2020 8:34 PM EST [facility] Basophils % 0.8 0.0 - 2.0 % 09/21/2020 8:34 PM EST [facility] Basophils Absolute 0.1 0.0 - 0.2 K/ul 09/21/2020 8:34 PM EST [facility] Eosinophils % 1.7 0.0 - 9.0 % 09/21/2020 8:34 PM EST [facility] Eosinophils Absolute 0.2 0.0 - 0.9 K/ul 09/21/2020 8:34 PM EST [facility] Lymphocytes % 43.0(H) 10.0 - 42.0 % 09/21/2020 8:34 PM EST [facility] Lymphocytes Absolute 5.0(H) 0.4 - 3.9 K/ul 09/21/2020 8:34 PM EST [facility] Monocytes % 5.9 1.0 - 14.0 % 09/21/2020 8:34 PM EST [facility] Monocytes Absolute 0.7 0.2 - 0.9 K/ul 09/21/2020 8:34 PM EST [facility] Hematocrit 37.3 29.9 - 45.5 % 09/21/2020 8:34 PM EST [facility] Hemoglobin 12.1 10.0 - 16.0 gm/dl 09/21/2020 8:34 PM EST [facility] 09/21/2020 8:05 PM EST 09/21/2020 8:05 PM EST [facility] BLOOD ORDERABLES Performing Organization Address City/[facility]/ZIP Co de Phone Number [facility] [address] [place] [address], * (ABNORMAL) Sedimentation rate, automated (09/21/2020 8:05 PM EST) Sed Rate 53(H) 0 - 20 MM/HR 09/21/2020 8:48 PM EST [facility] 09/21/2020 8:05 PM EST 09/21/2020 8:05 PM EST [facility] BLOOD ORDERABLES [facility] [address] [place] [address], [place] * CT chest w and wo IV contrast (09/21/2020 7:56 PM EST) Anatomical Region Laterality Modality Body, Chest Computed Tomogra phy 09/21/2020 7:56 PM EST Narrative 09/21/2020 8:50 PM EST PROCEDURE INFORMATION: ?Exam: CT Chest Without and With Contrast; Diagnostic ?Exam date and time: 09/21/2020 8:39 PM ?Age: 49 years old ?Clinical indication: Other: R/O abscess to [facility] tmastectomy site; Additional ??info: Poss abscess attn r ?? TECHNIQUE: ?Imaging protocol: Diagnostic computed tomography of the chest without and with intravenous contrast. ?Radiation optimization: All CT scans at this facility use at least one of these ??dose optimization techniques: automated exposure control; mA and/or kV ??adjustment per patient size (includes targeted exams where dose is matched to ??clinical indication); or iterative reconstruction. ?Contrast material: ISOVUE 300; Contrast volume: 80 ml; Contrast route: ??INTRAVENOUS (IV); ?? COMPARISON: ?CT Thorax^CHEST WO (Adult) 08/20/2020 6:56 PM ?? FINDINGS: ?Lungs: There is no infiltrate in either lung. The minor left basilar ??subsegmental atelectasis noted previously has cleared. ?Pleural space: Unremarkable. No pneumothorax. No pleural effusion. ?Heart: Heart size is normal. ?Mediastinal space: The esophagus is normal. ?Pulmonary arteries: Normal caliber pulmonary arteries. ?Aorta: There is no aortic aneurysm or dissection. ?Lymph nodes: No lymphadenopathy. ?? Bones/joints: There are hypertrophic changes in the spine and at the shoulders. ??There is no acute osseous pathology. ?Soft tissues: Status post right mastectomy. The previously noted right upper ??anterior chest wall fluid collection is much smaller. The primary component of ??this collection still measures water density but is now only about 5 cm in ??maximal diameter. There is persistent skin thickening overlying the lesion. ?There is no gas in the chest wall soft tissues. ?? Impression: ??1. Status post right mastectomy. ??The previously noted chest wall fluid ??collection is much smaller. ??There remaining fluid measures water density. ??2. There is no acute mediastinal/great vessel pathology. ??2. The lungs are clear. ??No pleural effusion or pneumothorax. Procedure Note Tio Toussaint - 11/25/2021 PROCEDURE INFORMATION: Exam: CT Chest Without and With Contrast; Diagnostic Exam date and time: 09/21/2020 8:39 PM Age: 49 years old Clinical indication: Other: R/O abscess to [facility] tmastectomy site;Additional info: Poss abscess attn r TECHNIQUE: Imaging protocol: Diagnostic computed tomography of the chest withoutand with intravenous contrast. Radiation optimization: All CT scans at this facility use at least oneof these dose optimization techniques: automated exposure control; mAand/or kV adjustment per patient size (includes targeted exams where doseis matched to clinical indication); or iterative reconstruction. Contrast material: ISOVUE 300; Contrast volume: 80 ml; Contrast route:INTRAVENOUS (IV); COMPARISON: CT Thorax^CHEST WO (Adult) 08/20/2020 6:56 PM FINDINGS: Lungs: There is no infiltrate in either lung. The minor left basilarsubsegmental atelectasis noted previously has cleared. Pleural space: Unremarkable. No pneumothorax. No pleural effusion. Heart: Heart size is normal. Mediastinal space: The esophagus is normal. Pulmonary arteries: Normal caliber pulmonary arteries. Aorta: There is no aortic aneurysm or dissection. Lymph nodes: No lymphadenopathy. Bones/joints: There are hypertrophic changes in the spine and at theshoulders. There is no acute osseous pathology. Soft tissues: Status post right mastectomy. The previously noted rightupper anterior chest wall fluid collection is much smaller. The primarycomponent of this collection still measures water density but is now onlyabout 5 cm in maximal diameter. There is persistent skin thickeningoverlying the lesion. There is no gas in the chest wall soft tissues. Impression: 1. Status post right mastectomy. The previously noted chest wall fluidcollection is much smaller. There remaining fluid measures water density. 2. There is no acute mediastinal/great vessel pathology. 2. The lungs are clear. No pleural effusion or pneumothorax. Sofi Judhan PA IMG CT PROCEDURES * (ABNORMAL) POCT CHM8 (09/21/2020 7:24 PM EST) TCO2 25 23 - 27 mmol/L 09/21/2020 7:24 PM EST [facility] Sodium 136(L) 138 - 146 mmol/L 09/21/2020 7:24 PM EST [facility] Potassium 5.4(H) 3.5 - 4.9 mmol/L 09/21/2020 7:24 PM EST [facility] Ionized Calcium 1.14 1.12 - 1.32 mmol/L 09/21/2020 7:24 PM EST [facility] POCT GLUCOSE 224(H) 70 - 105 MG/DL 09/21/2020 7:24 PM EST [facility] Hemoglobin 13.3 12.0 - 17.0 gm/dl 09/21/2020 7:24 PM EST [facility] Hematocrit 39 38 - 51 % 09/21/2020 7:24 PM EST [facility] POCTBUN 15 8 - 26 MG/DL 09/21/2020 7:24 PM EST [facility] Creatinine 1.3 0.6 - 1.3 MG/DL 09/21/2020 7:24 PM EST [facility] Chloride 105 98 - 109 mmol/L 09/21/2020 7:24 PM EST [facility] Anion Gap 13 10 - 20 mmol/L 09/21/2020 7:24 PM EST [facility] 09/21/2020 7:24 PM EST 09/21/2020 7:49 PM EST Jose Barkley MD LAB POINT OF CARE TEST DOCKED DEVICE UNSOLICITED RESULTS [facility] [address] * (ABNORMAL) C-reactive protein (09/21/2020 7:20 PM EST) CRP 0.7(H) 0.0 - 0.3 mg/dL 09/21/2020 7:59 PM EST [facility] 09/21/2020 7:20 PM EST 09/21/2020 7:26 PM EST [facility] BLOOD ORDERABLES Performing Organization Address City/[facility] Co de Phone Number [facility] [address] * Lactic acid, plasma (09/21/2020 7:20 PM EST) Lactate 1.7 0.4 - 2.0 mmol/L 09/21/2020 8:06 PM EST [facility] 09/21/2020 7:20 PM EST 09/21/2020 7:26 PM EST [facility]i [facility]on [facility]LOOD ORDERAB[facility] Performing Organization Address [facility] Phone Number [facility] [address] documented in this encounter Visit Diagnoses Diagnosis Encounter for change or removal of surgical wound dressing Acquired absence of right breast and nipple Type 2 diabetes mellitus without complications Essential (primary) hypertension Unspecified essential hypertension Other chronic pain Dorsalgia, unspecified custodial (current) use of oral hypoglycemic drugs Other correction (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 documented in this encounter Care Teams Coil Winding Machines Set Up Mechanic Relationship Specialty Start Date End Date Ricardo Contreras MD [address] [place] [address] PCP - General documented as of this encounter
--- OUTSIDE RECORDS SUMMARY | 2024-08-18 13:14 | XMS_ITS | Encounter Summary ---
Author Organization [facility] nter Address [address] [place] [address] [place] [address] Care Team Providers Care General Cargo Clerk Name Role Phone Ricardo Contreras MD Primary Care Provider + Encounter Details Date Type Department Care Team (Latest Contact Info) Description 07/08/2020 12:01 AM EDT - 07/08/2020 11:59 PM EDT Hospital Encounter [facility]C CONVERSION OUTPATIENT [address] [place] [address] Ricardo Contreras MD [address] [place] [address] Malignant neoplasm of upper-outer quadrant of right female breast (CMS/HCC); Family history of malignant neoplasm of breast Discharge Disposition: Home [...] Date/Time Associated Diagnosis Comments BI MAMMOGRAM DIAGNOSTIC RIGHT Routine 07/08/2020 11:39 AM EDT BI US GUIDED BREAST LOCALIZATION AND BIOPSY RIGHT Routine 07/08/2020 9:29 AM EDT HISTORICAL SURGICAL PATHOLOGY CASE - LEGACY Routine 07/08/2020 documented in this encounter Results * BI Diagnostic mammogram right (07/08/2020 11:39 AM EDT) Anatomical Region Laterality Modality Breast Right Mammography 07/08/2020 11:3 9 AM EDT Narrative 07/08/2020 1:36 PM EDT PROCEDURE: US BIOPSY BREAST RIGHT, MA MAMMO DIAG RIGHT: ??07/08/2020 CLINICAL INFORMATION: Right breast lesion COMPARISON: ??Diagnostic right mammogram and ultrasound 05/14/2020. Document Control Manager images of the right breast redemonstrated lesion within 11 o'clock right breast. Risks and benefits of procedure discussed with patient and informed consent obtained. Patient prepped and draped in standard sterile fashion. Local anesthetic cover provided by approximately 7 mL of 1% lidocaine. ?Four core biopsies obtained under ultrasound guidance. Biopsy clip marker placed. Pressure held for adequate hemostasis. Right mammogram performed which confirmed presence of biopsy clip within region of previously seen right breast lesion. Impression: Successful ultrasound guided biopsy of right breast lesion as above. Pathology pending. No immediate complication. Report Sign Date: 07/08/2020 1:33 PM, Electronically Signed By: ??Partha Cardenas MD Procedure Note Theresa Teddy - 11/25/2021 PROCEDURE: US BIOPSY BREAST RIGHT, MA MAMMO DIAG RIGHT: 07/08/2020 CLINICAL INFORMATION: Right breast lesion COMPARISON: Diagnostic right mammogram and ultrasound 05/14/2020. Document Control Manager images of the right breast redemonstrated lesion within 11 o'clockright breast. Risks and benefits of procedure discussed with patient and informedconsent obtained. Patient prepped and draped in standard sterile fashion. Local anestheticcover provided by approximately 7 mL of 1% lidocaine. Four core biopsies obtained under ultrasound guidance. Biopsy clipmarker placed. Pressure held for adequate hemostasis. Right mammogram performed which confirmed presence of biopsy clip withinregion of previously seen right breast lesion. Impression: Successful ultrasound guided biopsy of right breast lesion as above. Pathology pending. No immediate complication. Report Sign Date: 07/08/2020 1:33 PM, Electronically Signed By: Partha Cardenas MD Kenroy Rascon MD IMG BI PROCEDURES * Right US-guided breast localization and biopsy (07/08/2020 9:29 AM EDT) Anatomical Region Laterality Modality Breast Right Ultrasound 07/08/2020 9:29 AM EDT Narrative 07/08/2020 1:36 PM EDT PROCEDURE: US BIOPSY BREAST RIGHT, MA MAMMO DIAG RIGHT: ??07/08/2020 CLINICAL INFORMATION: Right breast lesion COMPARISON: ??Diagnostic right mammogram and ultrasound 05/14/2020. Document Control Manager images of the right breast redemonstrated lesion within 11 o'clock right breast. Risks and benefits of procedure discussed with patient and informed consent obtained. Patient prepped and draped in standard sterile fashion. Local anesthetic cover provided by approximately 7 mL of 1% lidocaine. ?Four core biopsies obtained under ultrasound guidance. Biopsy clip marker placed. Pressure held for adequate hemostasis. Right mammogram performed which confirmed presence of biopsy clip within region of previously seen right breast lesion. Impression: Successful ultrasound guided biopsy of right breast lesion as above. Pathology pending. No immediate complication. Report Sign Date: 07/08/2020 1:33 PM, Electronically Signed By: ??Partha Cardenas MD Procedure Note Eribertomine Teddy - 11/25/2021 PROCEDURE: US BIOPSY BREAST RIGHT, MA MAMMO DIAG RIGHT: 07/08/2020 CLINICAL INFORMATION: Right breast lesion COMPARISON: Diagnostic right mammogram and ultrasound 05/14/2020. Document Control Manager images of the right breast redemonstrated lesion within 11 o'clockright breast. Risks and benefits of procedure discussed with patient and informedconsent obtained. Patient prepped and draped in standard sterile fashion. Local anestheticcover provided by approximately 7 mL of 1% lidocaine. Four core biopsies obtained under ultrasound guidance. Biopsy clipmarker placed. Pressure held for adequate hemostasis. Right mammogram performed which confirmed presence of biopsy clip withinregion of previously seen right breast lesion. Impression: Successful ultrasound guided biopsy of right breast lesion as above. Pathology pending. No immediate complication. Report Sign Date: 07/08/2020 1:33 PM, Electronically Signed By: Partha Cardenas MD Kenroy Rascon MD IMG US PROCEDURES * Historical Surgical Pathology Case (07/08/2020) Tissue 07/08/2020 07/08/2020 [facility] - 07/08/2020 DIAGNOSIS Right breast mass, biopsy: ??Invasive moderately differentiated ductal carcinoma Greatest dimension 1.0 cm Negative for lymphovascular invasion David Grade II/III (2 +2+1) Negative for intraductal carcinoma Negative for necrosis [id number]-TISSUE SUBMITTED: BREAST MASS, RIGHT,SURGICAL EXCISION CLINICAL INFORMATION Maternal grandmother history of breast cancer GROSS DESCRIPTION Specimen is received in formalin labeled right breast mass, consists of three cores. The largest measures 1.0 x 0.2 x 0.2 cm. All tissue is submitted into cassette A. ?KAH/cm MICROSCOPIC DESCRIPTION Tissue blocks are prepared and slides are examined microscopically on all specimens. See diagnosis for details. Four immunohistochemical stains are performed at [facility] and interpreted by Dr. Dante Guadalupe at [facility]. All controls are examined and they are working. This specimen has NOT been decalcified. ??IMMUNOHISTOCHEMICAL RESULTS (IHC):Estrogen Receptor RESULTS: + 100% 3+ (INTENSITY SCORE)Progesterone Receptor RESULTS: + 100% 3+ (INTENSITY SCORE)Her2/shreya oncoprotein RESULTS: - 0% 0+ (INTENSITY SCORE)E_cad RESULTS: ? +Tissue cold time prior to fixation: ??< ??15 minutes Total fixation time (neutral buffered formalin): 7 ?? hoursHER2/shreya oncoprotein ([place] clone 4B5, polymer, IVD) Test is performed on formalin fixed, paraffin embedded tissue. ??NEGATIVE TEST is 0+ or 1+ staining. ??POSITIVE TEST IS 3+ staining, with at least 10% of tumor showing strong and uniform membranous staining. ??EQUIVOCAL TEEST is 2+ or questionable 3+ staining and is submitted for testing by RIRI method for HER2/shreya oncogene amplification. ??ER clone ([place] SP1, [place] clone IE2, polymer, IVD) approved immunohistochemical stains are performed on formalin-fixed, paraffin embedded tissue, 1-10% of nuclei staining of any intensity is considered a low positive test, and 11% or greater nuclear staining of any intensity is considered positive in our laboratory. ??Estrogen, Progesterone Receptors and Her2/shreya testing is scored and reported as per ASCO/CAP guidelines published in Arch Pathol Lab Med. Doi: 10.5858/arpa.0547-2778-RL (updated 2019). The reference values for positive, low positive, negative and equivocal are listed above. The assays are FDA cleared when performed on formalin-fixed, paraffin-embedded (FFPE) tissues within the latest ASCO/CAP guideline limits on fixation time. ??The reliability of the assays for therapeutic predictive value in other circumstances is diminished. ??This includes short or extended fixation time, decalcification, or fixation in other than 10% neutral buffered formalin. PREVIOUS FINAL DIAGNOSIS Right breast mass, biopsy: ??Invasive moderately differentiated ductal ca Right breast mass, biopsy: ??Invasive moderately differentiated ductal carcinoma Greatest dimension 1.0 cm Negative for lymphovascular rcinoma Greatest dimension 1.0 cm Negative for lymphovascular invasion Cerrillos Grade II/III (2 +2+1) Negative for intraduinvasion Cerrillos Grade II/III (2 +2+1) Negative for intraductal carcinoma Negative for necrosis ctal carcinoma Negative for necrosis [employer] Case:[id number] Ricardo Contreras MD LAB PATHOLOGY OR DERABLES [facility] [address] documented in this encounter Visit Diagnoses Diagnosis Malignant neoplasm of upper-outer quadrant of right female breast Family history of malignant neoplasm of breast documented in this encounter Care Teams General Cargo Clerk Relationship Specialty Start Date End Date Ricardo Contreras MD [address] [place] [address] PCP - General documented as of this encounter
--- OUTSIDE RECORDS SUMMARY | 2024-08-18 13:14 | XMS_ITS | Encounter Summary ---
Author Organization [facility] Ce nter Address [address] [place], [place] [id number] [place], [place] [id number] Care Team Providers Care Software Test Automation Engineer Name Role Phone Ricardo Contreras MD Primary Care Provider + Encounter Details Date Type Department Care Team (Latest Contact Info) Description 08/17/2020 12:21 PM EST - 08/17/2020 11:59 PM EST Hospital Encounter [facility] CONVERSION OUTPATIENT [address] [place] [address] Lesly Collazo NP [address] [place] [place] [phone] Malignant neoplasm of unspecified site of unspecified [...] Diagnosis Comments CBC WITH AUTO DIFFERENTIAL Routine 08/17/2020 12:43 PM EST documented in this encounter Results * (ABNORMAL) CBC auto differential (08/17/2020 12:43 PM EST) Platelets 206 122 - 454 K/ul 08/17/2020 3:10 PM EST [facility] RBC 4.230 3.450 - 5.400 M/ul 08/17/2020 3:10 PM EST [facility] MCV 79.5 78.2 - 101.8 fl 08/17/2020 3:10 PM EST [facility] MCH 26.0(L) 26.4 - 33.3 pg 08/17/2020 3:10 PM EST [facility] MCHC 32.7 32.5 - 35.3 g/dL 08/17/2020 3:10 PM EST [facility] RDW 15.4 10.1 - 16.2 % 08/17/2020 3:10 PM EST [facility] MPV 9.0 6.4 - 10.4 fl 08/17/2020 3:10 PM EST [facility] Neutrophils % 77.5 43.0 - 83.0 % 08/17/2020 3:10 PM EST [facility] Neutrophils Absolute 11.9(H) 2.7 - 6.9 K/ul 08/17/2020 3:10 PM EST [facility] Auto WBC 15.40(H) 3.00 - 11.30 K/ul 08/17/2020 3:10 PM EST [facility] nRBC 0.10 08/17/2020 3:10 PM EST [facility] Basophils % 0.7 0.0 - 2.0 % 08/17/2020 3:10 PM EST [facility] Basophils Absolute 0.1 0.0 - 0.2 K/ul 08/17/2020 3:10 PM EST [facility] Eosinophils % 1.7 0.0 - 9.0 % 08/17/2020 3:10 PM EST [facility] Eosinophils Absolute 0.3 0.0 - 0.9 K/ul 08/17/2020 3:10 PM EST [facility] Lymphocytes % 13.8 10.0 - 42.0 % 08/17/2020 3:10 PM EST [facility] Lymphocytes Absolute 2.1 0.4 - 3.9 K/ul 08/17/2020 3:10 PM EST [facility] Monocytes % 6.3 1.0 - 14.0 % 08/17/2020 3:10 PM EST [facility] Monocytes Absolute 1.0(H) 0.2 - 0.9 K/ul 08/17/2020 3:10 PM EST [facility] Hematocrit 33.6 29.9 - 45.5 % 08/17/2020 3:10 PM EST [facility] Hemoglobin 11.0 10.0 - 16.0 gm/dl 08/17/2020 3:10 PM EST [facility] 08/17/2020 12:4 3 PM EST 08/17/2020 2:51 PM EST Lesly Collazo DATA ANALYSIS ASSISTANT LAB BLOOD ORDERABLES [facility] [address] documented in this encounter Visit Diagnoses Diagnosis Malignant neoplasm of unspecified site of unspecified female breast documented in this encounter Care Teams Software Test Automation Engineer Relationship Specialty Start Date End Date Ricardo Contreras MD [address] [id number] PCP - General documented as of this encounter
--- OUTSIDE RECORDS SUMMARY | 2024-08-18 13:14 | XMS_ITS | Encounter Summary ---
Author Organization [facility] nter Address [address] [place] [id number] [place] [address] Care Team Providers Care Secret Service Agent Name Role Phone Ricardo Contreras MD Primary Care Provider + Encounter Details Date Type Department Care Team (Latest Contact Info) Description 09/16/2020 11:29 AM EST - 09/16/2020 11:59 PM EST Hospital Encounter [facility] CONVERSION OUTPATIENT [address] [place] [address] Jalil Marie MD [address] [place] [phone] Postprocedural seroma of skin and subcutaneous tissue following other procedure; Malignant neoplasm of unspecified site of right female breast (CMS/HCC); Acquired absence of right breast and nipple Discharge Disposition: Home or Self Care Social [...] Date/Time Associated Diagnosis Comments US VENOUS UE RIGHT DOPPLER Routine 09/16/2020 11:32 AM EST documented in this encounter Results * US venous UE right doppler (09/16/2020 11:32 AM EST) Anatomical Region Laterality Modality Upper Extremities Ultrasound 09/16/2020 11:3 2 AM EST Narrative 09/16/2020 2:00 PM EST PROCEDURE: US VENOUS UE RIGHT DOPPLER: 09/16/2020 CLINICAL INFORMATION: Malignant neoplasm of breast Ultrasound examination of the upper extremity venous system demonstrates no evidence of thrombosis. Impression: Negative study. Report Sign Date: 09/16/2020 1:58 PM, Electronically Signed By: ??Sang George MD Procedure Note Sang George MD - 11/25/2021 PROCEDURE: US VENOUS UE RIGHT DOPPLER: 09/16/2020 CLINICAL INFORMATION: Malignant neoplasm of breast Ultrasound examination of the upper extremity venous system demonstratesno evidence of thrombosis. Impression: Negative study. Report Sign Date: 09/16/2020 1:58 PM, Electronically Signed By: Sang George MD Jalil Marie MD IMG US PROCEDURES documented in this encounter Visit Diagnoses Diagnosis Postprocedural seroma of skin and subcutaneous tissue following other procedure Malignant neoplasm of unspecified site of right female breast Acquired absence of right breast and nipple documented in this encounter Care Teams Secret Service Agent Relationship Specialty Start Date End Date Ricardo Contreras MD [address] [place] [address] PCP - General documented as of this encounter
--- OUTSIDE RECORDS SUMMARY | 2024-08-18 13:14 | XMS_ITS | Encounter Summary ---
Author Organization [facility] nter Address [address] [place] [address] [place] [address] Care Team Providers Care Management Information Systems Director Name Role Phone Ricardo Contreras MD Primary Care Provider + Encounter Details Date Type Department Care Team (Latest Contact Info) Description 08/12/2020 9:01 AM EST - 08/12/2020 11:59 PM EST Hospital Encounter [facility] CONVERSION OUTPATIENT [address] [place] [address] Lesly Collazo NP [address] [place] [place] [phone] Encounter for other specified surgical aftercare; Malignant neoplasm of unspecified site of unspecified [...] Diagnosis Encounter for other specified surgical aftercare Malignant neoplasm of unspecified site of unspecified female breast documented in this encounter Care Teams Management Information Systems Director Relationship Specialty Start Date End Date Ricardo Contreras MD [address] [place] [address] PCP - General documented as of this encounter
--- OUTSIDE RECORDS SUMMARY | 2024-08-18 13:14 | XMS_ITS | Encounter Summary ---
Author Organization [facility] nter Address [address] [address] [place] [address] Care Team Providers Care Cement Handler Name Role Phone Ricardo Contreras MD Primary Care Provider + Encounter Details Date Type Department Care Team (Latest Contact Info) Description 08/20/2020 9:58 PM EST - 08/24/2020 2:46 PM EST Hospital Encounter [facility] CONVERSION OUTPATIENT [address] [place] [address] [place] [address] [place] [address] Infection following a procedure, other surgical site, initial encounter; Sepsis due to methicillin susceptible Staphylococcus aureus (CMS/HCC); Severe sepsis without septic shock (CODE) (CMS/HCC); Postprocedural seroma of a musculoskeletal structure following other procedure; Acute kidney failure, unspecified; Hypo-osmolality and hyponatremia; Removal of other organ (partial) (total) as the cause of abnormal reaction of the patient, or of later complication, without mention of misadventure at the time of the procedure; Essential (primary) hypertension; Type 2 diabetes mellitus without complications (CMS/HCC); shelter (current) use of oral hypoglycemic drugs; Other chronic pain; Dorsalgia, unspecified; Malignant neoplasm of unspecified site of right female breast (CMS/HCC); Acquired absence of right breast and nipple; Latex allergy status; Contact with and (suspected) exposure to other [...] as of this encounter Discharge Summaries * Naomi oCrado - 08/24/2020 11:56 AM EST FOLLOW UP WITH: Follow up with: [facility] Site/Services: Clinic Name/Site: with IR CLINIC,Provider, in 31-Aug-2020 09:15 Clinic Name/Site: with DR YEH,Provider, in 31-Aug-2020 11:00 Patient/Parent Signature * Shira Cramer MD - 08/24/2020 11:35 AM EST DATE OF SERVICE: 24-Aug-2020 11:35 [place] [address] PATIENT NAME: KATHERIN MARTINEZ MR#: [id number] : Nov ADMIT DATE: 20-Aug-2020 DISCHARGE DATE: 24-Aug-2020 ADMITTING PHYSICIAN: MARIO VELASQUEZ ADMISSION DIAGNOSIS: POST OP FLUID COLLECTION RIGHT UPPER CHEST WALL DISCHARGE DIAGNOSES SEPSIS/SEVERE SEPSIS Sepsis/Severe Sepsis was present on admission There is no Systemic Organ Dysfunction due to sepsis. 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 She met sepsis criteria likely due to infection of the breast seroma. Blood cultures remain negative however aspirate from the seroma grew MSSA for which was treated with antibiotics. Sepsis was present on admission. She underwent repeated aspiration with improvement of chest pain and swelling. She is being discharged home on oral antibiotics and have chronic medications. Interventional radiology has placed a drain in the right breast and she is to follow up with them and general surgery in the clinic. On the day of discharge,i examined patient at bedside she hemodynamic stable for discharge. DISCHARGE PHYSICAL EXAM MOST RECENT VITAL SIGNS: T: 97.4 F [36.3 C] (08/24/2020 07:44) HR: Measurement DT HR 08/23/2020 11:56 48 B/P: Measurement DT NIBPS NIBPD 08/24/2020 07:44 145 47 RR: 18 (08/24/2020 07:44) PAIN: 7 (08/24/2020 09:04) WEIGHT: 200 lb [90.72 kg] (08/20/2020 22:25) HEIGHT: 64 in [162.6 cm] (08/20/2020 22:25) O2 SAT: No PO2 value % on Room air PHYSICAL EXAMINATION GENERAL APPEARANCE: Comfortable, no acute distress SKIN, HAIR, NAILS: No rashes or lesions. HEAD: NCAT EYES: PERRLA,EOMI ENT: Oropharynx clear, moist mucous membranes. NECK: Supple, no JVD. BREASTS: Comment: Rt breast drain in place LUNGS: CTA bilaterally HEART: RRR, no murmurs/rubs/gallops/clicks ABDOMEN: +BS, soft, non-tender, non-distended. /RECTAL: Deferred EXTREMITIES: No edema/clubbing/cyanosis; no calf tenderness, 2+ distal pulses. No joint tenderness. Full active ROM. NEURO Alertness: Awake Oriented x 3;Cranial nerves 2-12 intact; *Does patient have indwelling central venous line? No *Does patient have Foster Catheter? No LABORATORY DATA/RADIOLOGY/EKG LAB 24H Recent Lab Information For Date Range Aug 23, 2020@11:35:41 through Aug 24, 2020@11:35:41 Test: APTT Specimen: BLOOD Date/Time: 08/23/20@16:45:33 Test Result Flg Range Units -------- APTT 22 22 - 30 sec Test: BMP Specimen: BLOOD Date/Time: 08/24/20@06:47:48 Test Result Flg Range Units -------- BUN 11 7 - 18 MG/DL SODIUM 140 133 - 144 mmol/L POTASSIUM 4.6 3.6 - 5.2 mmol/L CHLORIDE 110 H 98 - 107 mmol/L CO2 19 L 21 - 32 mmol/L CREATININE 1.10 0.60 - 1.30 MG/DL CALCIUM 8.8 8.5 - 10.1 mg/dL Test: GLUCOSE Specimen: BLOOD Date/Time: 08/24/20@06:47:48 Test Result Flg Range Units -------- GLUCOSE. 88 70 - 110 MG/DL Test: PROTIME AND INR Specimen: BLOOD Date/Time: 08/23/20@16:45:33 Test Result Flg Range Units -------- PROTHROMBIN TIME 10.3 9.3 - 11.5 sec INR 0.99 0.89 - 1.11 NA Test: GLUCOSE RGNT STRIPSpecimen: CAPILLARY Date/Time: 08/24/20@00:24:55 Test Result Flg Range Units -------- GLUCOSE REAGENT STRIP 83 70 - 110 MG/DL Test: GLUCOSE RGNT STRIPSpecimen: CAPILLARY Date/Time: 08/23/20@18:11:41 Test Result Flg Range Units -------- GLUCOSE REAGENT STRIP 309 H 70 - 110 MG/DL Test: GLUCOSE RGNT STRIPSpecimen: CAPILLARY Date/Time: 08/23/20@12:14:07 Test Result Flg Range Units -------- GLUCOSE REAGENT STRIP 394 H 70 - 110 MG/DL Test: GFR Specimen: BLOOD Date/Time: 08/24/20@06:47:48 Test Result Flg Range Units -------- GLOMELULAR FILRATION RATE53.1 L 60.0 - 200.0 ML/MIN Test: SARS COV 2 LUCRECIA Specimen: NASAL MUCUS Date/Time: 08/23/20@16:27 Test Result Flg Range Units -------- SARS COV 2 LUCRECIA NEGATIVE < NEGATIVE NA IMAGING 24H Recent Imaging Information Imaging Date/Time Procedure Interpreting Staff Aug 23, 2020@17:04 IR GUIDE CATHET FLUID DRAINAGE SARA YORK Impression: 1. Successful drain placement into subcutaneous fluid collection (probable postop seroma with or without infection) involving the soft tissues of the right anterior chest wall as above. Labs pending from the fluid. 2. Monitor daily output from right anterior chest wall drain. 3. Right anterior chest wall drain to remain to closed bulb/bag suction device. 4. Follow-up in interventional radiology clinic 1 week post patient discharge from the hospital. Thanks for the referral. Please feel free to contact interventional radiology and/or myself with any questions or concerns. Dr. Sara York D.O. Report Sign Date: 08/23/2020 7:55 PM, Electronically Signed By: Sara York DISCHARGE CONDITION: Stable DISPOSITION: Home DISCHARGE MEDICATIONS SPN - Discharge Med Rec 08/24/2020 11:32 Local Title: DISCHARGE MED REC Standard Title: Discharge Medication Reconciliation Report Aug 24, 2020@11:32:59 PATIENT: KATHERIN MARTINEZ : 1970 FEMALE Reported Allergies: TAPE, BEE STINGS, BAND-AIDS, LATEX, ADHESIVE TAPE This is a list of medications and their actions according to your latest visit. If this list is inaccurate, please let your provider know. NEW meds that were prescribed today: OXYCODONE 7.5MG/ACETAMINOPHEN 325MG TAB: TAKE 1 TABLET OXYCODONE 7.5MG/ACETAMINOPHEN 325MG TAB BY MOUTH THREE TIMES A DAY NEEDED Indication: History of mastectomy BREWSTER AMOXICILLIN 875/CLAV K 125MG TAB UD: TAKE 1 TABLET AMOXICILLIN 875/CLAV K 125MG TAB UD BY MOUTH TWICE A DAY Indication: Sepsis The following meds were changed today: CONTINUE taking the following meds: OXYCODONE 7.5MG/ACETAMINOPHEN 325MG TAB: TAKE 1 TABLET BY MOUTH THREE TIMES A DAY NEEDED Indication: GLIPIZIDE 5MG TAB UD: TAKE 2 TABLETS BY MOUTH TWICE A DAY Indication: FUROSEMIDE 20MG TAB: TAKE 1 TABLET BY MOUTH ONCE A DAY Indication: CITALOPRAM HYDROBROMIDE 20MG TAB UD: TAKE 1 TABLET BY MOUTH ONCE A DAY Indication: DILTIAZEM HCL 60MG TAB: TAKE 1.5 TABLETS BY MOUTH TWICE A DAY Indication: AMITRIPTYLINE HCL 50MG TAB: TAKE 2 TABLETS BY MOUTH ONCE A DAY Indication: METOPROLOL TARTRATE 50MG TAB UD: TAKE 1 TABLET BY MOUTH TWICE A DAY Indication: METFORMIN HCL 500MG SA TAB: TAKE 2 TABLETS BY MOUTH TWICE A DAY Indication: PREGABALIN 75MG CAP: TAKE 1 CAPSULE BY MOUTH TWICE A DAY Indication: POTASSIUM CHLORIDE 10MEQ SA TAB: TAKE 1 TABLET BY MOUTH ONCE A DAY Indication: OMEPRAZOLE 20MG EC CAP: TAKE 2 CAPSULES BY MOUTH ONCE A DAY Indication: MAGNESIUM OXIDE 400MG TAB: TAKE 1 TABLET BY MOUTH TWICE A DAY Indication: LORATADINE 10MG TAB UD: TAKE 1 TABLET BY MOUTH ONCE A DAY Indication: ERGOCALCIFEROL (VITAMIN D) 52432 UNT CAP: TAKE 1 CAPSULE BY MOUTH Weekly Indication: BACLOFEN 10MG TAB: TAKE 1 TABLET BY MOUTH TWICE A DAY NEEDED Indication: ATORVASTATIN CALCIUM 40MG TAB: TAKE 2 TABLETS BY MOUTH ONCE A DAY Indication: EPI-PEN INJ,SOLN: INJECT 1 SUBCUTANEOUS ONCE A DAY NEEDED Indication: SUCRALFATE 1GM TAB: TAKE 1 TABLET BY MOUTH Indication: STOP taking the following meds: METOPROLOL TARTRATE 50MG TAB UD: TAKE 1 TABLET BY MOUTH TWICE A DAY Indication: Date Finalized: 08/24/20@11:32 by SHIRA CRAMER (PHYSICIAN) INSTRUCTIONS ACTIVITY/RETURN TO WORK/SCHOOL: You may resume your usual level of activity DIET: Low Salt, 1800 Calories Return to ER with any new or worsening symptoms. FOLLOW UP WITH: Follow up with your Private Physician in 1 week IR and general surgery in 1 week Time Spent: Greater than 30 minutes documented in this encounter Progress Notes * Lesly Collazo NP - 08/24/2020 11:33 AM EST DATE OF SERVICE: 24-Aug-2020 CHIEF COMPLAINT: S/P right mastectomy, seroma S/P drain placement by IR SUBJECTIVE: Seen and examined, states she feels much better. Wanting to go home. OBJECTIVE: Temp: 97.4 F [36.3 C] (08/24/2020 07:44) Heart Rate: Measurement DT HR 08/23/2020 11:56 48 Respiration: 18 (08/24/2020 07:44) BP: Measurement DT NIBPS NIBPD 08/24/2020 07:44 145 47 Pulse Oximetry: No PO2 value WOUND ASSESSMENT: Breast-Mastectomy: Right Incision: remaining ulises removed--mild erythema medial aspect of incision Perc drain with serous drainage. LAB: LAB 24H Recent Lab Information For Date Range Aug 23, 2020@11:33:08 through Aug 24, 2020@11:33:08 Test: APTT Specimen: BLOOD Date/Time: 08/23/20@16:45:33 Test Result Flg Range Units -------- APTT 22 22 - 30 sec Test: BMP Specimen: BLOOD Date/Time: 08/24/20@06:47:48 Test Result Flg Range Units -------- BUN 11 7 - 18 MG/DL SODIUM 140 133 - 144 mmol/L POTASSIUM 4.6 3.6 - 5.2 mmol/L CHLORIDE 110 H 98 - 107 mmol/L CO2 19 L 21 - 32 mmol/L CREATININE 1.10 0.60 - 1.30 MG/DL CALCIUM 8.8 8.5 - 10.1 mg/dL Test: GLUCOSE Specimen: BLOOD Date/Time: 08/24/20@06:47:48 Test Result Flg Range Units -------- GLUCOSE. 88 70 - 110 MG/DL Test: PROTIME AND INR Specimen: BLOOD Date/Time: 08/23/20@16:45:33 Test Result Flg Range Units -------- PROTHROMBIN TIME 10.3 9.3 - 11.5 sec INR 0.99 0.89 - 1.11 NA Test: GLUCOSE RGNT STRIPSpecimen: CAPILLARY Date/Time: 08/24/20@00:24:55 Test Result Flg Range Units -------- GLUCOSE REAGENT STRIP 83 70 - 110 MG/DL Test: GLUCOSE RGNT STRIPSpecimen: CAPILLARY Date/Time: 08/23/20@18:11:41 Test Result Flg Range Units -------- GLUCOSE REAGENT STRIP 309 H 70 - 110 MG/DL Test: GLUCOSE RGNT STRIPSpecimen: CAPILLARY Date/Time: 08/23/20@12:14:07 Test Result Flg Range Units -------- GLUCOSE REAGENT STRIP 394 H 70 - 110 MG/DL Test: GFR Specimen: BLOOD Date/Time: 08/24/20@06:47:48 Test Result Flg Range Units -------- GLOMELULAR FILRATION RATE53.1 L 60.0 - 200.0 ML/MIN Test: SARS COV 2 LUCRECIA Specimen: NASAL MUCUS Date/Time: 08/23/20@16:27 Test Result Flg Range Units -------- SARS COV 2 LUCRECIA NEGATIVE < NEGATIVE NA ASSESSMENT/DIAGNOSIS: 1. S/P perc drain placement by IR right breast post op seroma PLAN: Ok to discharge home from surgical standpoint. Patient to wear sling on right arm and limit use of arm. Record perc drain output. Follow up in clinic in one week. Discussed with Dr. Brewster. * Lesly Collazo NP - 08/23/2020 1:44 PM EST DATE OF SERVICE: 23-Aug-2020 CHIEF COMPLAINT: Status post right mastectomy postop seroma SUBJECTIVE: Seen and examined. OBJECTIVE: Temp: 99.8 F [37.7 C] (08/23/2020 07:34) Heart Rate: Measurement DT HR 08/23/2020 04:34 71 Respiration: 18 (08/23/2020 07:34) BP: Measurement DT NIBPS NIBPD 08/23/2020 07:34 104 59 Pulse Oximetry: No PO2 value WOUND ASSESSMENT: Breast-Mastectomy: Right Incision: Well approximated, Ulises/sutures intact Surrounding tissue: Large amount of fluid palpated on exam LAB: LAB 24H Recent Lab Information For Date Range Aug 22, 2020@13:44:53 through Aug 23, 2020@13:44:53 Test: GLUCOSE RGNT STRIPSpecimen: CAPILLARY Date/Time: 08/23/20@12:14:07 Test Result Flg Range Units -------- GLUCOSE REAGENT STRIP 394 H 70 - 110 MG/DL ASSESSMENT/DIAGNOSIS: 1. Status post right mastectomy postop seroma. Patient's had 3 prior aspiration. We will consult IR today for placement of drain. Culture will need to be sent. Discussed with Dr. Brewster. * Shira Cramer MD - 08/23/2020 10:44 AM EST DATE OF SERVICE: 22-Aug-2020 10:44 HPI: Feeling better today. Evangelina cute distress. Pain better controlled INPATIENT MEDICATIONS Active INPATIENT Medications 1) AMITRIPTYLINE TAB 50MG [GEQ: ELAVIL] Give: 100MG PO QHS 2) CITALOPRAM TAB 20MG [GEQ: CeleXA] Give: 20MG PO DAILY 3) DEXTROSE 50% INJ,SOLN DEXTROSE 50% SYRINGE [D] 25 GM Instructions too long. See order details or [facility] for full text. IV PRN PRN 4) DEXTROSE 50% INJ,SOLN DEXTROSE 50% SYRINGE [D] 12.5 GM Instructions too long. See order details or [facility] for full text. IV PRN PRN 5) DILTIAZEM TAB 60MG [GEQ: CARDIZEM] Give: 90MG PO BID 6) FUROSEMIDE TAB 20MG [GEQ: LASIX] Give: 20MG PO DAILY 7) HEPARIN (PORCINE) 5000UNT/ML INJ,SOLN Give: 5000 UNITS/1ML SC Q8H 8) METOPROLOL TARTRATE TAB 50MG [GEQ: Give: 50MG PO BID 9) NOZIN POPSWAB APPLICATOR Give: 1 DAVID NASAL Q12H TO BILATERAL NARES 10) NOZIN POPSWAB APPLICATOR Give: 1 DAVID NASAL RES HABILITATION ASSISTANT apply to bilateral nares on admission 11) PIPERACILLIN/TAZOBACTAM 4.5GM INJ in PIP/TAZO 4.5GM/100ML 100 ML INFUSE OVER 240 Minutes IVPB Q8H 12) SODIUM CHLORIDE 0.45% INJ in SODIUM CHLORIDE 0.45% [M] 1000 ML 100 ml/hr@0 IV 13) oxyCODONE 7.5MG/APAP 325MG TAB Give: 1 TABLET PO TID PRN Pending Inpatient Medications 1) INSULIN,LISPRO 100 UNITS/ML INJ 100UNIT/ Give: SCALE SC Q6H 2) glipiZIDE TAB 5MG [GEQ: GLUCOTROL] Give: 10MG PO BID 15 Total Medications MOST RECENT VITAL SIGNS: Temp: 97.9 F [36.6 C] (08/22/2020 11:18) Heart Rate: Measurement DT HR 08/22/2020 11:18 89 Respiration: 18 (08/22/2020 11:18) BP: Measurement DT NIBPS NIBPD 08/22/2020 11:18 128 56 PHYSICAL EXAMINATION GENERAL APPEARANCE: comfortable.NAD SKIN, HAIR, NAILS: No rashes or lesions. HEAD: NCAT EYES: PERRLA,EOMI ENT: Oropharynx clear, moist mucous membranes. NECK: Supple, no JVD. BREASTS: rt reast dressing clean and dry LUNGS: CTA bilaterally HEART: RRR, no murmurs/rubs/gallops/clicks ABDOMEN: +BS, soft, non-tender, non-distended. /RECTAL: Deferred EXTREMITIES: No edema/clubbing/cyanosis; no calf tenderness, 2+ distal pulses. No joint tenderness. Full active ROM. NEURO Alertness: Awake Oriented x 3;Cranial nerves 2-12 intact; *Does patient have indwelling central venous line? No *Does patient have Foster Catheter? No LABORATORY DATA/RADIOLOGY/EKG LAB 24H No Lab Data IMAGING 24H No rad data ASSESSMENT/PLAN: Severe Sepsis -S/p bedsideside debridement by general surgery -Due to rt chest wall abscess -Continue vanco and zosyn -F/u cultures. Growing staph - met sepsis criteria based on HR, Temp, lactate 2.4, DARRIUS, elevated procal -Continue wound care DARRIUS: -Likely due to sepsis -Improved. Continue IVF -Hold ARBs and diuretics Hyponatremia -Stable . Asymptomatic -Continue IV fluid Essential HTN -Stable -Continue home meds -Hold lasix NIDDM type II: -Accuchecks, insulin regimen, SSIs Chronic Back Pain -Pain better controlled -Continue home pain regimen Continue other medications for chronic and supportive care DVT and GI prophylaxis LEVEL OF RISK ASSESSMENT Moderate * Shira Cramer MD - 08/23/2020 10:16 AM EST DATE OF SERVICE: 23-Aug-2020 10:16 HPI: No acute overnight events. No fever,chills. Chest pain improved. Increased fluctuancy noted in right breast INPATIENT MEDICATIONS Active INPATIENT Medications 1) AMITRIPTYLINE TAB 50MG [GEQ: ELAVIL] Give: 100MG PO QHS 2) CITALOPRAM TAB 20MG [GEQ: CeleXA] Give: 20MG PO DAILY 3) DEXTROSE 50% INJ,SOLN DEXTROSE 50% SYRINGE [D] 25 GM Instructions too long. See order details or [facility] for full text. IV PRN PRN 4) DEXTROSE 50% INJ,SOLN DEXTROSE 50% SYRINGE [D] 12.5 GM Instructions too long. See order details or [facility] for full text. IV PRN PRN 5) DILTIAZEM TAB 60MG [GEQ: CARDIZEM] Give: 90MG PO BID 6) FUROSEMIDE TAB 20MG [GEQ: LASIX] Give: 20MG PO DAILY 7) HEPARIN (PORCINE) 5000UNT/ML INJ,SOLN Give: 5000 UNITS/1ML SC Q8H 8) INSULIN,LISPRO 100 UNITS/ML INJ 100UNIT/ Give: SCALE SC Q6H PRN Instructions too long. See order details for full text. 9) METOPROLOL TARTRATE TAB 50MG [GEQ: Give: 50MG PO BID 10) NOZIN POPSWAB APPLICATOR Give: 1 DAVID NASAL Q12H TO BILATERAL NARES 11) NOZIN POPSWAB APPLICATOR Give: 1 DAVID NASAL RES HABILITATION ASSISTANT apply to bilateral nares on admission 12) PIPERACILLIN/TAZOBACTAM 4.5GM INJ in PIP/TAZO 4.5GM/100ML 100 ML INFUSE OVER 240 Minutes IVPB Q8H 13) SODIUM CHLORIDE 0.45% INJ in SODIUM CHLORIDE 0.45% [M] 1000 ML 100 ml/hr@0 IV 14) VANCOMYCIN 1500MG VIAL VANCOMYCIN HCL [MD] 1500 MG in SODIUM CHLORIDE 0.9% [CCL] 250 ML INFUSE OVER 90 MINUTES IVPB Q24H 15) oxyCODONE 7.5MG/APAP 325MG TAB Give: 1 TABLET PO TID PRN MOST RECENT VITAL SIGNS: T: 99.8 F [37.7 C] (08/23/2020 07:34) HR: Measurement DT HR 08/23/2020 04:34 71 B/P: Measurement DT NIBPS NIBPD 08/23/2020 07:34 104 59 RR: 18 (08/23/2020 07:34) PAIN: 8 (08/23/2020 08:51) WEIGHT: 200 lb [90.72 kg] (08/20/2020 22:25) HEIGHT: 64 in [162.6 cm] (08/20/2020 22:25) O2 SAT: No PO2 value % on Room air PHYSICAL EXAMINATION GENERAL APPEARANCE: Comfortable, sitting up, no acute distress SKIN, HAIR, NAILS: No rashes or lesions. HEAD: NCAT EYES: PERRLA,EOMI ENT: Oropharynx clear, moist mucous membranes. NECK: Supple, no JVD. BREASTS: Rt breast,s/p mastectomy. Sutures+, increast upper quadrant fluctuanc LUNGS: CTA bilaterally HEART: RRR, no murmurs/rubs/gallops/clicks ABDOMEN: +BS, soft, non-tender, non-distended. /RECTAL: Deferred EXTREMITIES: No edema/clubbing/cyanosis; no calf tenderness, 2+ distal pulses. No joint tenderness. Full active ROM. NEURO Alertness: Awake Oriented x 3;Cranial nerves 2-12 intact; *Does patient have indwelling central venous line? No *Does patient have Foster Catheter? No LABORATORY DATA/RADIOLOGY/EKG LAB 24H No Lab Data IMAGING 24H No rad data ASSESSMENT/PLAN: Severe Sepsis -S/p bedsideside debridement by general surgery -Due to rt chest wall abscess. Wound aspirate culture growing MSSA -Continue zosyn. D/c vancomycin -F/u cultures - met sepsis criteria based on HR, Temp, lactate 2.4, DARRIUS, elevated procal -Continue wound care Rt breast Wound infection: -Wound culture grew MSSA -Continue Zosyn. GEneral surgery following. -Possible reaccumulation of seroma? -For likely repeat drainage -Continue wound care DARRIUS: -Due to sepsis -Improving with IVF -Continue to hold ARBs and diuretics Hyponatremia -Stable . Asymptomatic -Continue IV fluid Essential HTN -Stable -Continue home meds NIDDM type II: -Accuchecks, insulin regimen, SSIs Chronic Back Pain -Continue current regimen. Well controlled Continue other medications for chronic and supportive care DVT and GI prophylaxis LEVEL OF RISK ASSESSMENT High * Concepcion Mendez NP - 08/23/2020 8:25 AM EST DATE OF SERVICE: 23-Aug-2020 CHIEF COMPLAINT: no c/o this AM SUBJECTIVE: lying in bed, incision area looks well, edema still present to right chest wall in area of mastectomy OBJECTIVE: Temp: 97.4 F [36.3 C] (08/23/2020 00:10) Heart Rate: Measurement DT HR 08/23/2020 04:34 71 Respiration: 18 (08/23/2020 04:34) BP: Measurement DT NIBPS NIBPD 08/23/2020 04:34 124 73 Pulse Oximetry: No PO2 value WOUND ASSESSMENT: I&D of rt chest wall Incision: Well approximated Wound: Clean Surrounding tissue: no issues LAB: LAB 24H No Lab Data ASSESSMENT/DIAGNOSIS: 1. s/p I&D of right chest wall PLAN: pt will be transferred back to Dr. Narcisa carroll, will most likely need drain and IV antibiotics * Emily Sprague NP - 08/22/2020 2:16 PM EST DATE OF SERVICE: 22-Aug-2020 CHIEF COMPLAINT: rt chest/breast tenderness CONSULT REGARDING: SUBJECTIVE: Pt walking around in room, c/o tenderness with palpation rt chest above breast, no drainge, dressinglast changed yesterday OBJECTIVE: Temp: 97.9 F [36.6 C] (08/22/2020 11:18) Heart Rate: Measurement DT HR 08/22/2020 11:18 89 Respiration: 18 (08/22/2020 11:18) BP: Measurement DT NIBPS NIBPD 08/22/2020 11:18 128 56 Pulse Oximetry: No PO2 value General: No acute distress, well developed, well nourished Head: Normocephalic, non traumatic Breast: Comment: rt breast ertyhema, no drainage, tenderness right upper breast and chest wall LAB: LAB 24H Recent Lab Information For Date Range Aug 21, 2020@14:16:53 through Aug 22, 2020@14:16:53 Test: PROT/CREAT RATIO,USpecimen: URINE. Date/Time: 08/22/20@06:53:07 Test Result Flg Range Units -------- PROT/CREAT RATIO, UR. 0.39 NA Test: BMP Specimen: BLOOD Date/Time: 08/22/20@06:49:55 Test Result Flg Range Units -------- BUN 13 7 - 18 MG/DL SODIUM 135 133 - 144 mmol/L POTASSIUM 3.6 3.6 - 5.2 mmol/L CHLORIDE 107 98 - 107 mmol/L CO2 20 L 21 - 32 mmol/L CREATININE 1.50 H 0.60 - 1.30 MG/DL CALCIUM 8.9 8.5 - 10.1 mg/dL Test: GLUCOSE Specimen: BLOOD Date/Time: 08/22/20@06:49:55 Test Result Flg Range Units -------- GLUCOSE. 218 H 70 - 110 MG/DL Test: MAGNESIUM Specimen: BLOOD Date/Time: 08/22/20@06:49:55 Test Result Flg Range Units -------- MAGNESIUM 1.9 1.7 - 2.4 MG/DL Test: UREA NITROGEN, UR Specimen: URINE Date/Time: 08/22/20@06:53:06 Test Result Flg Range Units -------- UREA NITROGEN, URINE 244 H < N/A MG/DL Test: CREA, RANDOM UR Specimen: URINE Date/Time: 08/22/20@06:53:06 Test Result Flg Range Units -------- CREA, RANDOM UR 54.0 < N/A MG/DL Test: SODIUM, URINE Specimen: URINE Date/Time: 08/22/20@06:53:06 Test Result Flg Range Units -------- SODIUM, URINE 69 < N/A mmol/L Test: URINE TOTAL PROTEISpecimen: URINE Date/Time: 08/22/20@06:53:06 Test Result Flg Range Units -------- URINE TOTAL PROTEIN 21.1 < N/A mg/dL Test: VANCOMYCIN (RAND) Specimen: BLOOD Date/Time: 08/22/20@06:50:18 Test Result Flg Range Units -------- VANCOMYCIN (RANDOM) 10.8 < N/A ug/mL Test: CBC Specimen: BLOOD Date/Time: 08/22/20@06:49:10 Test Result Flg Range Units -------- IWBC 10.40 3.00 - 11.30 K/ul RBC 3.790 3.450 - 5.400 M/ul HGB 10.0 10.0 - 16.0 gm/dl HEMATOCRIT 30.8 29.9 - 45.5 % MCV 81.3 78.2 - 101.8 fl MCH 26.3 L 26.4 - 33.3 pg MCHC 32.3 L 32.5 - 35.3 g/dL RDW 15.8 10.1 - 16.2 % PLATELET 248 122 - 454 K/ul MPV 8.2 6.4 - 10.4 fl IWBCR 10.4 3.0 - 11.3 K/ul Test: GFR Specimen: BLOOD Date/Time: 08/22/20@06:49:55 Test Result Flg Range Units -------- GLOMELULAR FILRATION RATE37.1 L 60.0 - 200.0 ML/MIN RADIOLOGY IMAGING 24H No rad data ASSESSMENT/DIAGNOSIS: 1. fluid collection s/p right mastectomy per Dr Brewster PLAN: Continue antibiotics. Cultures pending. Will transfer care back to Dr Brewster tomorrow am. * Shira Cramer MD - 08/21/2020 3:07 PM EST DATE OF SERVICE: 21-Aug-2020 15:07 HPI: C/o Rt chest pain. No fever or chills. Generalized malaise INPATIENT MEDICATIONS Active INPATIENT Medications 1) DEXTROSE 50% INJ,SOLN DEXTROSE 50% SYRINGE [D] 25 GM Instructions too long. See order details or [facility] for full text. IV PRN PRN 2) DEXTROSE 50% INJ,SOLN DEXTROSE 50% SYRINGE [D] 12.5 GM Instructions too long. See order details or [facility] for full text. IV PRN PRN 3) HEPARIN (PORCINE) 5000UNT/ML INJ,SOLN Give: 5000 UNITS/1ML SC Q8H 4) INSULIN,LISPRO 100 UNITS/ML INJ 100UNIT/ Give: SCALE SC Q6H PRN Instructions too long. See order details for full text. 5) METOPROLOL TARTRATE TAB 50MG [GEQ: Give: 50MG PO BID 6) NOZIN POPSWAB APPLICATOR Give: 1 DAVID NASAL Q12H TO BILATERAL NARES 7) NOZIN POPSWAB APPLICATOR Give: 1 DAVID NASAL RES HABILITATION ASSISTANT apply to bilateral nares on admission 8) PHARMACY TO DOSE OTHER Give: 1 MISC PRN Consult for : Vancomycin Indications: Empiric therapy for suspected multi-drug resistant r=gram positive organisms. 9) PIPERACILLIN/TAZOBACTAM 4.5GM INJ in PIP/TAZO 4.5GM/100ML 100 ML INFUSE OVER 240 Minutes IVPB Q8H 10) SODIUM CHLORIDE 0.45% INJ in SODIUM CHLORIDE 0.45% [M] 1000 ML 100 ml/hr@0 IV Pending Inpatient Medications 1) AMITRIPTYLINE TAB 50MG [GEQ: ELAVIL] Give: 100MG PO DAILY 2) CITALOPRAM TAB 20MG [GEQ: CeleXA] Give: 20MG PO DAILY 3) DILTIAZEM TAB 60MG [GEQ: CARDIZEM] Give: 90MG PO BID 4) FUROSEMIDE TAB 20MG [GEQ: LASIX] Give: 20MG PO DAILY 5) oxyCODONE 7.5MG/APAP 325MG TAB Give: 1 TABLET PO TID PRN 15 Total Medications MOST RECENT VITAL SIGNS: T: 98.5 F [36.9 C] (08/21/2020 12:39) HR: Measurement DT HR 08/21/2020 12:39 95 B/P: Measurement DT NIBPS NIBPD 08/21/2020 12:39 125 66 RR: 20 (08/21/2020 12:39) PAIN: 8 (08/04/2020 22:36) WEIGHT: 200 lb [90.72 kg] (08/20/2020 22:25) HEIGHT: 64 in [162.6 cm] (08/20/2020 22:25) O2 SAT: No PO2 value % on Room air PHYSICAL EXAMINATION GENERAL APPEARANCE: No acute distress, sitting up. Afebrile SKIN, HAIR, NAILS: No rashes or lesions. HEAD: NCAT EYES: PERRLA,EOMI ENT: Oropharynx clear, moist mucous membranes. NECK: Supple, no JVD. LUNGS: CTA bilaterally Comment: Rt chest dressing clean and dry CHEST: No chest wall tenderness or deformity HEART: RRR, no murmurs/rubs/gallops/clicks ABDOMEN: +BS, soft, non-tender, non-distended. /RECTAL: Deferred EXTREMITIES: No edema/clubbing/cyanosis; no calf tenderness, 2+ distal pulses. No joint tenderness. Full active ROM. NEURO Alertness: Awake Oriented x 3;Cranial nerves 2-12 intact; *Does patient have indwelling central venous line? No *Does patient have Foster Catheter? No LABORATORY DATA/RADIOLOGY/EKG LAB 24H Recent Lab Information For Date Range Aug 20, 2020@15:07:10 through Aug 21, 2020@15:07:10 Test: AUTO DIFFERENTIAL Specimen: BLOOD Date/Time: 08/20/20@19:05:58 Test Result Flg Range Units -------- NEUTROPHILS% 80.5 43.0 - 83.0 % MONOS % 7.7 1.0 - 14.0 % LYMPHS % 10.5 10.0 - 42.0 % EOSI% 1.0 0.0 - 9.0 % BASO% 0.3 0.0 - 2.0 % NEUT # 9.7 H 2.7 - 6.9 K/ul MONOS# 0.9 0.2 - 0.9 K/ul LYMPHS# 1.3 0.4 - 3.9 K/ul EOSI# 0.1 0.0 - 0.9 K/ul BAS# 0.0 0.0 - 0.2 K/ul Test: BMP Specimen: BLOOD Date/Time: 08/20/20@19:18:13 Test Result Flg Range Units -------- BUN 13 7 - 18 MG/DL SODIUM 129 L 133 - 144 mmol/L POTASSIUM 4.4 3.6 - 5.2 mmol/L CHLORIDE 99 98 - 107 mmol/L CO2 20 L 21 - 32 mmol/L CREATININE 1.80 H 0.60 - 1.30 MG/DL CALCIUM 8.9 8.5 - 10.1 mg/dL Test: GLUCOSE Specimen: BLOOD Date/Time: 08/20/20@19:18:13 Test Result Flg Range Units -------- GLUCOSE. 252 H 70 - 110 MG/DL Test: LACTIC ACID Specimen: OTHER Date/Time: 08/20/20@22:27:23 Test Result Flg Range Units -------- LACTIC ACID 1.4 0.4 - 2.0 mmol/L Test: LACTIC ACID Specimen: OTHER Date/Time: 08/20/20@19:34:16 Test Result Flg Range Units -------- LACTIC ACID 2.4 H 0.4 - 2.0 mmol/L Test: URINALYSIS, COMP Specimen: URINE Date/Time: 08/20/20@20:15:13 Test Result Flg Range Units -------- U COLOR YELLOW NA U CLARITY CLOUDY NA U GLUCOSE >=1000 < NEGATIVE mg/dL U BILIRUBIN NEGATIVE < NEGATIVE NA U KETONE NEGATIVE < NEGATIVE mg/dL U SPECIFIC GRAVITY 1.024 1.006 - 1.035 NA U BLOOD NEGATIVE < NEGATIVE NA U PH 5.5 5.0 - 9.0 NA U PROTEIN 30 < NEGATIVE mg/dL U UROBILINOGEN 0.2 0.2 - 1.0 E.U./DL U NITRITE NEGATIVE < NEGATIVE NA U LEUKOCYTES SMALL A < NEGATIVE NA U RBC COUNT 1 0 - 4 /hpf U WBC COUNT 22 H 0 - 5 /hpf U EPITHELIAL CELL COUNT 7 H 0 - 6 /hpf U BACTERIA COUNT NEGATIVE < NEGATIVE /hpf U HYALINE CAST 6 H 0 - 4 /lpf Test: CBC Specimen: BLOOD Date/Time: 08/20/20@19:05:58 Test Result Flg Range Units -------- IWBC 12.00 H 3.00 - 11.30 K/ul RBC 4.200 3.450 - 5.400 M/ul HGB 10.6 10.0 - 16.0 gm/dl HEMATOCRIT 33.2 29.9 - 45.5 % MCV 79.0 78.2 - 101.8 fl MCH 25.4 L 26.4 - 33.3 pg MCHC 32.1 L 32.5 - 35.3 g/dL RDW 15.1 10.1 - 16.2 % PLATELET 243 122 - 454 K/ul MPV 8.6 6.4 - 10.4 fl IWBCR 12.0 H 3.0 - 11.3 K/ul Test: CBC W/ AUTO DIFF Specimen: BLOOD Date/Time: 08/20/20@19:05:58 Test Result Flg Range Units -------- Test: GFR Specimen: BLOOD Date/Time: 08/20/20@19:18:13 Test Result Flg Range Units -------- GLOMELULAR FILRATION RATE30.1 L 60.0 - 200.0 ML/MIN Test: PROCALCITONIN Specimen: BLOOD Date/Time: 08/20/20@19:28:57 Test Result Flg Range Units -------- PROCALCITONIN 0.52 H 0.00 - 0.50 ng/mL IMAGING 24H Recent Imaging Information Imaging Date/Time Procedure Interpreting Staff Aug 20, 2020@18:07 CT CHEST W/O CONT TEDDY CARDENAS IMPRESSION : Postsurgical changes of prior right mastectomy. Large 12.4 x 4.9 x 10.2 cm fluid collection about the right anterior chest wall as above, differential considerations include postoperative seroma, evolving hematoma and component of underlying abscess not entirely excluded, recommend clinical correlation. There is additional ill-defined fluid and stranding seen throughout subcutaneous tissues of the right chest wall into the region of the right axilla. Differential considerations include evolving contusion or subcutaneous edema. Underlying infectious/inflammatory change and cellulitis not excluded, recommend clinical correlation. There is component of mild underlying thickening of right pectoralis musculature, nonspecific, potentially postoperative, although component of myositis not excluded. Borderline enlarged 10 mm right axillary lymph node, nonspecific. Component of metastatic disease not entirely excluded. If further evaluation is indicated, consider follow-up PET/CT. Mild scattered scarring and atelectasis without acute focal consolidation. Report Sign Date: 08/21/2020 11:00 AM, Electronically Signed By: Partha Cardenas MD ASSESSMENT/PLAN: Severe Sepsis -S/p bedsideside debridement by general surgery -Due to rt chest wall abscess -Continue vanco and zosyn -F/u cultures - met sepsis criteria based on HR, Temp, lactate 2.4, DARRIUS, elevated procal -Continue wound care DARRIUS: -Likely due to sepsis -IMproving. Continue IVF -Hold ARBs and diuretics Hyponatremia -Stable . Asymptomatic -Continue IV fluid Essential HTN -Well controlled -Restart home meds -Hold lasix NIDDM type II: -Accuchecks, insulin regimen, SSIs Chronic Back Pain -Restart home pain regimen Continue other medications for chronic and supportive care DVT and GI prophylaxis LEVEL OF RISK ASSESSMENT Moderate * Amador Starkey PharmD - 08/20/2020 10:33 PM EST 49 yrs RE: VANCOMYCIN DOSING VANCOMYCIN 2G IV X 1, GIVE IF NO DOSE GIVEN IN ER, OUTSIDE FACILITY, OR IN OR. PHARMACY TO FOLLOW/ADJUST/SCHEDULE IN AM. documented in this encounter H&P Notes * Mario Velasquez MD - 08/20/2020 10:00 PM EST DATE OF SERVICE: 20-Aug-2020 HISTORY CHIEF COMPLAINT: My breast is filled up with fluid SOURCE: Patient HISTORY OF PRESENT ILLNESS This is a 49 y/o F w/ hx of HTN, NIDDM type II, Chronic Back Pain who presents with worsening edema of R breast. Pt is s/p complete simple mastecomy w/ sentinal node biopsy 08/04/20 due to Invasive Ductal Ca of R breast. She has had fluid collections since surgery and had it drained 3d prior to arrival. Tonight she presented with pain, erythema, and subjective fevers/chills. Denies cough, congestion, sputum production, abd pain, N/V/D. Denies dysuria. There was a large fluid collection found on CT, surgery drained it partially at the bedside. Was sent for cx. ALLERGIES: TAPE, BEE STINGS, BAND-AIDS, LATEX, ADHESIVE TAPE *PAST MEDICAL HISTORY As per HPI PAST SURGICAL HISTORY neck surgery, foot surgery, nose surgery, R mastectomy FAMILY HISTORY Reviewed and non-contributory to current hospitalization SOCIAL HISTORY No tobacco alcohol or drug use reported ADVANCE DIRECTIVES/CODE STATUS HOME MEDICATIONS Active HOME Medications 1) METOPROLOL TARTRATE 50MG TAB UD Dosage: 50MG, Schedule: TWICE A DAY 2) FUROSEMIDE 20MG TAB Dosage: 20MG, Schedule: ONCE A DAY 3) SUCRALFATE 1GM TAB Dosage: 1GM 4) POTASSIUM CHLORIDE 10MEQ SA TAB Dosage: 10MEQ, Schedule: ONCE A DAY 5) BACLOFEN 10MG TAB Dosage: 10MG, Schedule: TWICE A DAY NEEDED 6) MAGNESIUM OXIDE 400MG TAB Dosage: 400MG, Schedule: TWICE A DAY 7) OMEPRAZOLE 20MG EC CAP Dosage: 40MG, Schedule: ONCE A DAY 8) EPI-PEN INJ,SOLN Dosage: 1 , Schedule: ONCE A DAY NEEDED 9) CITALOPRAM HYDROBROMIDE 20MG TAB UD Dosage: 20MG, Schedule: ONCE A DAY 10) LORATADINE 10MG TAB UD Dosage: 10MG, Schedule: ONCE A DAY 11) AMITRIPTYLINE HCL 50MG TAB Dosage: 100MG, Schedule: ONCE A DAY 12) ATORVASTATIN CALCIUM 40MG TAB Dosage: 80MG, Schedule: ONCE A DAY 13) GLIPIZIDE 5MG TAB UD Dosage: 10MG, Schedule: TWICE A DAY 14) DILTIAZEM HCL 60MG TAB Dosage: 90MG, Schedule: TWICE A DAY 15) PREGABALIN 75MG CAP Dosage: 75MG, Schedule: TWICE A DAY 16) ERGOCALCIFEROL (VITAMIN D) 57308 UNT CAP Dosage: [id number], Schedule: Weekly 17) METFORMIN HCL 500MG SA TAB Dosage: 1000MG, Schedule: TWICE A DAY 18) OXYCODONE 7.5MG/ACETAMINOPHEN 325MG TAB Dosage: 1 TABLET, Schedule: THREE TIMES A DAY NEEDED REVIEW OF SYSTEMS ROS negative other than those covered in the HPI PHYSICAL EXAMINATION MOST RECENT VITAL SIGNS: T: 98.0 F [36.7 C] (08/05/2020 08:22) HR: No data available B/P: Measurement DT NIBPS NIBPD 08/05/2020 08:22 156 69 RR: 18 (08/05/2020 08:22) PAIN: 8 (08/04/2020 22:36) WEIGHT: 219.1 lb [99.38 kg] (08/04/2020 14:48) HEIGHT: 64 in [162.6 cm] (08/04/2020 14:48) O2 SAT: No PO2 value % on Room air GEN: awake, A&O, NAD, pleasant, comfortable appearing SKIN: warm/dry, has large incision over R breast HEENT: AT/NC NECK: supple LUNGS: non-labored, on RA, speaks in complete sentences HEART: RRR ABDOMEN: soft, NT/ND /RECTAL: Deferred EXTREMITIES: no LE edema NEURO: speech fluent/appropriate *Does patient have indwelling central venous line? No *Does patient have Foster Catheter? No LABORATORY DATA/RADIOLOGY/EKG LAB LAB 24H Recent Lab Information For Date Range Aug 19, 2020@22:00:54 through Aug 20, 2020@22:00:54 Test: AUTO DIFFERENTIAL Specimen: BLOOD Date/Time: 08/20/20@19:05:58 Test Result Flg Range Units -------- NEUTROPHILS% 80.5 43.0 - 83.0 % MONOS % 7.7 1.0 - 14.0 % LYMPHS % 10.5 10.0 - 42.0 % EOSI% 1.0 0.0 - 9.0 % BASO% 0.3 0.0 - 2.0 % NEUT # 9.7 H 2.7 - 6.9 K/ul MONOS# 0.9 0.2 - 0.9 K/ul LYMPHS# 1.3 0.4 - 3.9 K/ul EOSI# 0.1 0.0 - 0.9 K/ul BAS# 0.0 0.0 - 0.2 K/ul Test: BMP Specimen: BLOOD Date/Time: 08/20/20@19:18:13 Test Result Flg Range Units -------- BUN 13 7 - 18 MG/DL SODIUM 129 L 133 - 144 mmol/L POTASSIUM 4.4 3.6 - 5.2 mmol/L CHLORIDE 99 98 - 107 mmol/L CO2 20 L 21 - 32 mmol/L CREATININE 1.80 H 0.60 - 1.30 MG/DL CALCIUM 8.9 8.5 - 10.1 mg/dL Test: GLUCOSE Specimen: BLOOD Date/Time: 08/20/20@19:18:13 Test Result Flg Range Units -------- GLUCOSE. 252 H 70 - 110 MG/DL Test: LACTIC ACID Specimen: OTHER Date/Time: 08/20/20@19:34:16 Test Result Flg Range Units -------- LACTIC ACID 2.4 H 0.4 - 2.0 mmol/L Test: URINALYSIS, COMP Specimen: URINE Date/Time: 08/20/20@20:15:13 Test Result Flg Range Units -------- U COLOR YELLOW NA U CLARITY CLOUDY NA U GLUCOSE >=1000 < NEGATIVE mg/dL U BILIRUBIN NEGATIVE < NEGATIVE NA U KETONE NEGATIVE < NEGATIVE mg/dL U SPECIFIC GRAVITY 1.024 1.006 - 1.035 NA U BLOOD NEGATIVE < NEGATIVE NA U PH 5.5 5.0 - 9.0 NA U PROTEIN 30 < NEGATIVE mg/dL U UROBILINOGEN 0.2 0.2 - 1.0 E.U./DL U NITRITE NEGATIVE < NEGATIVE NA U LEUKOCYTES SMALL A < NEGATIVE NA U RBC COUNT 1 0 - 4 /hpf U WBC COUNT 22 H 0 - 5 /hpf U EPITHELIAL CELL COUNT 7 H 0 - 6 /hpf U BACTERIA COUNT NEGATIVE < NEGATIVE /hpf U HYALINE CAST 6 H 0 - 4 /lpf Test: CBC Specimen: BLOOD Date/Time: 08/20/20@19:05:58 Test Result Flg Range Units -------- IWBC 12.00 H 3.00 - 11.30 K/ul RBC 4.200 3.450 - 5.400 M/ul HGB 10.6 10.0 - 16.0 gm/dl HEMATOCRIT 33.2 29.9 - 45.5 % MCV 79.0 78.2 - 101.8 fl MCH 25.4 L 26.4 - 33.3 pg MCHC 32.1 L 32.5 - 35.3 g/dL RDW 15.1 10.1 - 16.2 % PLATELET 243 122 - 454 K/ul MPV 8.6 6.4 - 10.4 fl IWBCR 12.0 H 3.0 - 11.3 K/ul Test: CBC W/ AUTO DIFF Specimen: BLOOD Date/Time: 08/20/20@19:05:58 Test Result Flg Range Units -------- Test: GFR Specimen: BLOOD Date/Time: 08/20/20@19:18:13 Test Result Flg Range Units -------- GLOMELULAR FILRATION RATE30.1 L 60.0 - 200.0 ML/MIN Test: PROCALCITONIN Specimen: BLOOD Date/Time: 08/20/20@19:28:57 Test Result Flg Range Units -------- PROCALCITONIN 0.52 H 0.00 - 0.50 ng/mL RADIOLOGY IMAGING [facility] Recent Imaging Information Imaging Date/Time Procedure Interpreting Staff Aug 20, 2020@18:07 CT CHEST W/O TEDDY NUÑEZ IMPRESSION : Postsurgical changes of prior right mastectomy. Large 12.4 x 4.9 x 10.2 cm fluid collection about the right anterior chest wall as above, differential considerations include postoperative seroma, evolving hematoma and component of underlying abscess not entirely excluded and recommend clinical correlation. There is additional ill-defined fluid and stranding seen throughout subcutaneous tissues of the right chest wall in the region of the right axilla. Differential considerations include evolving contusion or subcutaneous edema. Underlying infectious/inflammatory change and cellulitis not excluded, recommend clinical correlation. There is component of mild underlying thickening of right pectoralis musculature, nonspecific, potentially postoperative, although component of myositis is not excluded. Borderline enlarged 10 mm right axillary lymph node, nonspecific. Component of metastatic disease not entirely excluded. If further evaluation is indicated, consider follow-up PET/CT. Mild scattered scarring and atelectasis without acute focal consolidation. ASSESSMENT/PLAN # Severe Sepsis - meets criteria based HR, Temp, lactate 2.4, DARRIUS, procal elevated, U/A Pos w/ epis, CT chest shows postsurgical changes of prior R mastectomy, large 12.4 x 4.9 x 10.2 cm fluid collection about the right anterior chest wall as above, differential considerations include postoperative seroma, evolving hematoma and component of underlying abscess not entirely excluded - likey 2/2 to above fluid collection - will give 30mL/kg of IVF bolus, will start vanco/zosyn, BCx 2 drawn in ER, will repeat Lactate. surgery consult - monitor # Hyponatremia- Na 129, pt is euvolemic appearing - may be slightly hypovolemic - IVF for now - monitor # NAGMA - AG 10, CO2 20, is in renal failure, lactate 2.4 - possibly RTA? - treat underlying DARRIUS, LR - monitor # Elevated Creatinine - presented w/ Cr 1.80, looking back at old records, was 1.0-1.1 07/2019, pt has sepsis per above, is on lasix - likely DARRIUS 2/2 2/2 pre- renal vs intrarenal - will check urine lytes, urine protein, hold lasix, aggressive IVF for above sepsis - monitor UOP and Cr trend # HTN - BP 156/69, pt is on metoprolol 50mg BID, cardizem 90mg BID, lasix 20mg daily, will continue BB, hold lasix and cardizem in setting of DARRIUS and sepsis - monitor # NIDDM type II - BG 252, pt is on glipizide 5mg BID, metformin 1000mg BID, hold oral medications, SSI - monitor # Chronic Back Pain - is on baclofen 10mg BID, oxycodone/acetaminophen 7.5mg/325mg TID, will hold both for now in setting of sepsis - monitor DVT Prophylaxis - heparin subq, SCDs CORE MEASURES/MEANINGFUL USE Other Principal Diagnosis: severe sepsis Is the patient on VTE drug prophylaxis? Yes Is the patient on Mechanical VTE prophylaxis? Yes Did the patient take beta-zayra on a daily basis prior to this admission? Yes, continued LEVEL OF RISK ASSESSMENT Moderate documented in this encounter Consult Notes * Cristina Gorman - 08/21/2020 11:39 AM EST DATE OF SERVICE: 21-Aug-2020 HISTORY Physician CHIEF COMPLAINT right chest wall pain, right axillary pain SOURCE: Patient HISTORY OF PRESENT ILLNESS: Patient had mastectomy by woody brewster approximately 3 weeks ago and has had drains pulled and multiple drainage procedures of her chest wall since. She was in the office on sunday of this week and and both time she had drainage of this collection. She reports that almost immediately the pain in her chest wall comes back and she came to ER tonight with same pain. A CT scan and labs were obtained and she has what looks like an abscess on her chest wall and has a mild leukocytosis. She states she had fever and chills at home. I evaluated the patient and looked at the scan and got permission from her to drain this collection in er. I prepped her skin with betadyne and used lidicaine on the two areas I attempted to drain. she has severe pain in the axilla and I didn get any fluid from that mass but did get cloudy yellow fluid from the anteior chest wall collection approximately 150cc. I sent some for culture. No data available HOME MEDICATIONS Active HOME Medications 1) METOPROLOL TARTRATE 50MG TAB UD Dosage: 50MG, Schedule: TWICE A DAY 2) FUROSEMIDE 20MG TAB Dosage: 20MG, Schedule: ONCE A DAY 3) SUCRALFATE 1GM TAB Dosage: 1GM 4) POTASSIUM CHLORIDE 10MEQ SA TAB Dosage: 10MEQ, Schedule: ONCE A DAY 5) BACLOFEN 10MG TAB Dosage: 10MG, Schedule: TWICE A DAY NEEDED 6) MAGNESIUM OXIDE 400MG TAB Dosage: 400MG, Schedule: TWICE A DAY 7) OMEPRAZOLE 20MG EC CAP Dosage: 40MG, Schedule: ONCE A DAY 8) EPI-PEN INJ,SOLN Dosage: 1 , Schedule: ONCE A DAY NEEDED 9) CITALOPRAM HYDROBROMIDE 20MG TAB UD Dosage: 20MG, Schedule: ONCE A DAY 10) LORATADINE 10MG TAB UD Dosage: 10MG, Schedule: ONCE A DAY 11) AMITRIPTYLINE HCL 50MG TAB Dosage: 100MG, Schedule: ONCE A DAY 12) ATORVASTATIN CALCIUM 40MG TAB Dosage: 80MG, Schedule: ONCE A DAY 13) GLIPIZIDE 5MG TAB UD Dosage: 10MG, Schedule: TWICE A DAY 14) DILTIAZEM HCL 60MG TAB Dosage: 90MG, Schedule: TWICE A DAY 15) PREGABALIN 75MG CAP Dosage: 75MG, Schedule: TWICE A DAY 16) ERGOCALCIFEROL (VITAMIN D) 08287 UNT CAP Dosage: [id number], Schedule: Weekly 17) METFORMIN HCL 500MG SA TAB Dosage: 1000MG, Schedule: TWICE A DAY 18) OXYCODONE 7.5MG/ACETAMINOPHEN 325MG TAB Dosage: 1 TABLET, Schedule: THREE TIMES A DAY NEEDED REVIEW OF SYSTEMS Constitutional: Negative, Decreased Activity Comment: patient states she hasnt been walking because she feels like she is going to fall Eye: Negative ENMT: Negative Respiratory: Negative pain on chest wall with resp Cardiovascular: Negative Gastrointestinal: Negative Genitourinary: Negative Integumentary: Negative Neurologic: Negative Psychiatric: Negative PHYSICAL EXAMINATION MOST RECENT VITAL SIGNS: T: 98.1 F [36.7 C] (08/21/2020 08:47) HR: Measurement DT HR 08/21/2020 08:47 91 B/P: Measurement DT NIBPS NIBPD 08/21/2020 08:47 127 53 RR: 18 (08/21/2020 08:47) PAIN: 8 (08/04/2020 22:36) WEIGHT: 200 lb [90.72 kg] (08/20/2020 22:25) HEIGHT: 64 in [162.6 cm] (08/20/2020 22:25) BMI: 34* Obese (BMI 30.0 and Above) Obesity due to excess calories O2 SAT: No PO2 value % on GENERAL APPEARANCE: well nouished female in pain SKIN, HAIR, NAILS: No rashes or lesions. Comment: wound on right chest wall after mastectomy; very tender chest wall fluid collections. CHEST: No chest wall deformity Comment: chest wall tender erythematous and abscess on chest wall deep HEART: RRR, no murmurs/rubs/gallops/clicks NEURO Alertness: Awake Oriented x 3;Cranial nerves 2-12 intact; LABORATORY DATA/RADIOLOGY/EKG LABS LAB 24H Recent Lab Information For Date Range Aug 20, 2020@11:40:18 through Aug 21, 2020@11:40:18 Test: AUTO DIFFERENTIAL Specimen: BLOOD Date/Time: 08/20/20@19:05:58 Test Result Flg Range Units NEUTROPHILS% 80.5 43.0 - 83.0 % MONOS % 7.7 1.0 - 14.0 % LYMPHS % 10.5 10.0 - 42.0 % EOSI% 1.0 0.0 - 9.0 % BASO% 0.3 0.0 - 2.0 % NEUT # 9.7 H 2.7 - 6.9 K/ul MONOS# 0.9 0.2 - 0.9 K/ul LYMPHS# 1.3 0.4 - 3.9 K/ul EOSI# 0.1 0.0 - 0.9 K/ul BAS# 0.0 0.0 - 0.2 K/ul Test: BMP Specimen: BLOOD Date/Time: 08/20/20@19:18:13 Test Result Flg Range Units BUN 13 7 - 18 MG/DL SODIUM 129 L 133 - 144 mmol/L POTASSIUM 4.4 3.6 - 5.2 mmol/L CHLORIDE 99 98 - 107 mmol/L CO2 20 L 21 - 32 mmol/L CREATININE 1.80 H 0.60 - 1.30 MG/DL CALCIUM 8.9 8.5 - 10.1 mg/dL Test: GLUCOSE Specimen: BLOOD Date/Time: 08/20/20@19:18:13 Test Result Flg Range Units GLUCOSE. 252 H 70 - 110 MG/DL Test: LACTIC ACID Specimen: OTHER Date/Time: 08/20/20@22:27:23 Test Result Flg Range Units LACTIC ACID 1.4 0.4 - 2.0 mmol/L Test: LACTIC ACID Specimen: OTHER Date/Time: 08/20/20@19:34:16 Test Result Flg Range Units LACTIC ACID 2.4 H 0.4 - 2.0 mmol/L Test: URINALYSIS, COMP Specimen: URINE Date/Time: 08/20/20@20:15:13 Test Result Flg Range Units U COLOR YELLOW NA U CLARITY CLOUDY NA U GLUCOSE >=1000 < NEGATIVE mg/dL U BILIRUBIN NEGATIVE < NEGATIVE NA U KETONE NEGATIVE < NEGATIVE mg/dL U SPECIFIC GRAVITY 1.024 1.006 - 1.035 NA U BLOOD NEGATIVE < NEGATIVE NA U PH 5.5 5.0 - 9.0 NA U PROTEIN 30 < NEGATIVE mg/dL U UROBILINOGEN 0.2 0.2 - 1.0 E.U./DL U NITRITE NEGATIVE < NEGATIVE NA U LEUKOCYTES SMALL A < NEGATIVE NA U RBC COUNT 1 0 - 4 /hpf U WBC COUNT 22 H 0 - 5 /hpf U EPITHELIAL CELL COUNT 7 H 0 - 6 /hpf U BACTERIA COUNT NEGATIVE < NEGATIVE /hpf U HYALINE CAST 6 H 0 - 4 /lpf Test: CBC Specimen: BLOOD Date/Time: 08/20/20@19:05:58 Test Result Flg Range Units IWBC 12.00 H 3.00 - 11.30 K/ul RBC 4.200 3.450 - 5.400 M/ul HGB 10.6 10.0 - 16.0 gm/dl HEMATOCRIT 33.2 29.9 - 45.5 % MCV 79.0 78.2 - 101.8 fl MCH 25.4 L 26.4 - 33.3 pg MCHC 32.1 L 32.5 - 35.3 g/dL RDW 15.1 10.1 - 16.2 % PLATELET 243 122 - 454 K/ul MPV 8.6 6.4 - 10.4 fl IWBCR 12.0 H 3.0 - 11.3 K/ul Test: CBC W/ AUTO DIFF Specimen: BLOOD Date/Time: 08/20/20@19:05:58 Test Result Flg Range Units Test: GFR Specimen: BLOOD Date/Time: 08/20/20@19:18:13 Test Result Flg Range Units GLOMELULAR FILRATION RATE30.1 L 60.0 - 200.0 ML/MIN Test: PROCALCITONIN Specimen: BLOOD Date/Time: 08/20/20@19:28:57 Test Result Flg Range Units PROCALCITONIN 0.52 H 0.00 - 0.50 ng/mL RADIOLOGY IMAGING [facility] Recent Imaging Information Imaging Date/Time Procedure Interpreting Staff Aug 20, 2020@18:07 CT CHEST W/O TEDDY NUÑEZ IMPRESSION : Postsurgical changes of prior right mastectomy. Large 12.4 x 4.9 x 10.2 cm fluid collection about the right anterior chest wall as above, differential considerations include postoperative seroma, evolving hematoma and component of underlying abscess not entirely excluded, recommend clinical correlation. There is additional ill-defined fluid and stranding seen throughout subcutaneous tissues of the right chest wall into the region of the right axilla. Differential considerations include evolving contusion or subcutaneous edema. Underlying infectious/inflammatory change and cellulitis not excluded, recommend clinical correlation. There is component of mild underlying thickening of right pectoralis musculature, nonspecific, potentially postoperative, although component of myositis not excluded. Borderline enlarged 10 mm right axillary lymph node, nonspecific. Component of metastatic disease not entirely excluded. If further evaluation is indicated, consider follow-up PET/CT. Mild scattered scarring and atelectasis without acute focal consolidation. Report Sign Date: 08/21/2020 11:00 AM, Electronically Signed By: Partha Cardenas MD ASSESSMENT/PLAN Patient will be admitted for pain control and then for Dr Brewster to make a decision about another drain and abx IV due to her sepsis. Thank you for including us in the care of your patient. documented in this encounter Miscellaneous Notes * Care Plan - Lynette Schmidt RN - 08/24/2020 1:59 PM EST Name: C PL Status: COMPLETED Reassessment Frequency: DAILY Comments: this is a test. Entered by: NADIRA OLMEDO (PHOTOENGRAVING SKETCH MAKER) Date/Time Entered: 08/05/20@07:20:40 CATEGORY: CARE PLAN SHIFT REVIEWS PROBLEM: Care Plan Shift Reviews Start Date: 08/05/20 Status: ACTIVE Entered by: PIA PAZ (PHOTOENGRAVING SKETCH MAKER) Date/Time Entered: 08/05/20@04:32:22 INTERVENTION: Care plan reviewed and updated as indicated. Start Date: 08/05/20 Discipline: NURSE Frequency: EVERY 12 HOURS Care Action: CONTINUE Entered by: PIA PAZ (PHOTOENGRAVING SKETCH MAKER) Date/Time Entered: 08/05/20@04:32:23 PROBLEM: Care Plan Shift Reviews Start Date: 08/21/20 Status: ACTIVE Entered by: MICAELA CAT (PHOTOENGRAVING SKETCH MAKER) Date/Time Entered: 08/21/20@04:41:22 INTERVENTION: Care plan reviewed and updated as indicated. Start Date: 08/21/20 Discipline: NURSE Frequency: EVERY 12 HOURS Care Action: CONTINUE Entered by: MICAELA CAT (PHOTOENGRAVING SKETCH MAKER) Date/Time Entered: 08/21/20@04:41:22 CATEGORY: Discharge Plan PROBLEM: Initiate on admission Comments: Related to diagnosis: Related to medical condition: Start Date: 08/04/20 Status: ACTIVE Entered by: NADIRA OLMEDO (PHOTOENGRAVING SKETCH MAKER) Date/Time Entered: 08/04/20@15:37:58 GOAL: Prepare and educate for discharge Start Date: 08/04/20 Status: IN PROGRESS Entered by: NADIRA OLMEDO (PHOTOENGRAVING SKETCH MAKER) Date/Time Entered: 08/04/20@15:37:58 GOAL: Short Term Goal Start Date: 08/04/20 Status: IN PROGRESS Entered by: NADIRA OLMEDO (PHOTOENGRAVING SKETCH MAKER) Date/Time Entered: 08/04/20@15:37:58 GOAL: Verbalize understanding Start Date: 08/04/20 Status: IN PROGRESS Entered by: NADIRA OLMEDO (PHOTOENGRAVING SKETCH MAKER) Date/Time Entered: 08/04/20@15:37:58 INTERVENTION: Community resources Start Date: 08/04/20 Discipline: NURSE Frequency: EVERY DAY Care Action: CONTINUE Entered by: NADIRA OLMEDO (PHOTOENGRAVING SKETCH MAKER) Date/Time Entered: 08/04/20@15:37:58 INTERVENTION: Follow up appointments Start Date: 08/04/20 Discipline: NURSE Frequency: EVERY DAY Care Action: CONTINUE Entered by: NADIRA OLMEDO (PHOTOENGRAVING SKETCH MAKER) Date/Time Entered: 08/04/20@15:37:58 INTERVENTION: Guardianship/POA Start Date: 08/04/20 Discipline: NURSE Frequency: EVERY DAY Care Action: CONTINUE Entered by: NADIRA OLMEDO (PHOTOENGRAVING SKETCH MAKER) Date/Time Entered: 08/04/20@15:37:58 INTERVENTION: Keep follow up appointments Start Date: 08/04/20 Discipline: NURSE Frequency: EVERY DAY Care Action: CONTINUE Entered by: NADIRA OLMEDO (PHOTOENGRAVING SKETCH MAKER) Date/Time Entered: 08/04/20@15:37:58 INTERVENTION: Notify physician as needed Start Date: 08/04/20 Discipline: NURSE Frequency: EVERY DAY Care Action: CONTINUE Entered by: NADIRA OLMEDO (PHOTOENGRAVING SKETCH MAKER) Date/Time Entered: 08/04/20@15:37:58 INTERVENTION: Return to emergency room if needed Start Date: 08/04/20 Discipline: NURSE Frequency: EVERY DAY Care Action: CONTINUE Entered by: NADIRA OLEMDO (PHOTOENGRAVING SKETCH MAKER) Date/Time Entered: 08/04/20@15:37:58 INTERVENTION: Take all medications as prescribed Start Date: 08/04/20 Discipline: NURSE Frequency: EVERY DAY Care Action: CONTINUE Entered by: NADIRA OLMEDO (PHOTOENGRAVING SKETCH MAKER) Date/Time Entered: 08/04/20@15:37:58 CATEGORY: Infection PROBLEM: Infection Comments: Related to diagnosis: Related to medical condition: Start Date: 08/21/20 Status: ACTIVE Entered by: MICAELA CAT (PHOTOENGRAVING SKETCH MAKER) Date/Time Entered: 08/21/20@04:41:36 GOAL: Pin Inserter Regulator Goal Start Date: 08/21/20 Status: IN PROGRESS Entered by: MICAELA CAT (PHOTOENGRAVING SKETCH MAKER) Date/Time Entered: 08/21/20@04:41:36 GOAL: Patient/patient mechanical service representative verbalizes understanding of infectious process Start Date: 08/21/20 Status: IN PROGRESS Entered by: MICAELA CAT (PHOTOENGRAVING SKETCH MAKER) Date/Time Entered: 08/21/20@04:41:37 GOAL: Patient/patient mechanical service representative verbalizes signs and symptoms of infection Start Date: 08/21/20 Status: IN PROGRESS Entered by: MICAELA CAT (PHOTOENGRAVING SKETCH MAKER) Date/Time Entered: 08/21/20@04:41:37 GOAL: Provide emotional support Start Date: 08/21/20 Status: IN PROGRESS Entered by: MICAELA CAT (PHOTOENGRAVING SKETCH MAKER) Date/Time Entered: 08/21/20@04:41:37 GOAL: Short Term Goal Start Date: 08/21/20 Status: IN PROGRESS Entered by: MICAELA CAT (PHOTOENGRAVING SKETCH MAKER) Date/Time Entered: 08/21/20@04:41:36 INTERVENTION: Flu vaccine Start Date: 08/21/20 Discipline: NURSE Frequency: EVERY DAY Care Action: CONTINUE Entered by: MICAELA CAT (PHOTOENGRAVING SKETCH MAKER) Date/Time Entered: 08/21/20@04:41:37 INTERVENTION: Incision/wound care Start Date: 08/21/20 Discipline: NURSE Frequency: EVERY DAY Care Action: CONTINUE Entered by: MICAELA CAT (PHOTOENGRAVING SKETCH MAKER) Date/Time Entered: 08/21/20@04:41:37 INTERVENTION: Isolation precautions Start Date: 08/21/20 Discipline: NURSE Frequency: EVERY DAY Care Action: CONTINUE Entered by: MICAELA CAT (PHOTOENGRAVING SKETCH MAKER) Date/Time Entered: 08/21/20@04:41:37 INTERVENTION: Medications as ordered Start Date: 08/21/20 Discipline: NURSE Frequency: EVERY DAY Care Action: CONTINUE Entered by: MICAELA CAT (PHOTOENGRAVING SKETCH MAKER) Date/Time Entered: 08/21/20@04:41:37 INTERVENTION: Monitor signs and symptoms of infection Start Date: 08/21/20 Discipline: NURSE Frequency: EVERY DAY Care Action: CONTINUE Entered by: MICAELA CAT (PHOTOENGRAVING SKETCH MAKER) Date/Time Entered: 08/21/20@04:41:37 INTERVENTION: Monitor vital signs Start Date: 08/21/20 Discipline: NURSE Frequency: EVERY DAY Care Action: CONTINUE Entered by: MICAELA CAT (PHOTOENGRAVING SKETCH MAKER) Date/Time Entered: 08/21/20@04:41:37 INTERVENTION: Notify physician as needed Start Date: 08/21/20 Discipline: NURSE Frequency: EVERY DAY Care Action: CONTINUE Entered by: MICAELA CAT (PHOTOENGRAVING SKETCH MAKER) Date/Time Entered: 08/21/20@04:41:37 INTERVENTION: Patient/patient mechanical service representative education Start Date: 08/21/20 Discipline: NURSE Frequency: EVERY DAY Care Action: CONTINUE Entered by: MICAELA CAT (PHOTOENGRAVING SKETCH MAKER) Date/Time Entered: 08/21/20@04:41:37 INTERVENTION: Pneumonia vaccine Start Date: 08/21/20 Discipline: NURSE Frequency: EVERY DAY Care Action: CONTINUE Entered by: MICAELA CAT (PHOTOENGRAVING SKETCH MAKER) Date/Time Entered: 08/21/20@04:41:37 INTERVENTION: Proper hand washing Start Date: 08/21/20 Discipline: NURSE Frequency: EVERY DAY Care Action: CONTINUE Entered by: MICAELA CAT (PHOTOENGRAVING SKETCH MAKER) Date/Time Entered: 08/21/20@04:41:37 INTERVENTION: Tube and line care Start Date: 08/21/20 Discipline: NURSE Frequency: EVERY DAY Care Action: CONTINUE Entered by: MICAELA CAT (PHOTOENGRAVING SKETCH MAKER) Date/Time Entered: 08/21/20@04:41:37 CATEGORY: Integumentary PROBLEM: Impaired skin integrity Comments: Related to diagnosis: Related to medical condition: Start Date: 08/04/20 Status: ACTIVE Entered by: NADIRA OLMEDO (PHOTOENGRAVING SKETCH MAKER) Date/Time Entered: 08/04/20@15:39 GOAL: Adequate nutrition Start Date: 08/04/20 Status: IN PROGRESS Entered by: NADIRA OLMEDO (PHOTOENGRAVING SKETCH MAKER) Date/Time Entered: 08/04/20@15:39 GOAL: Ambulation Start Date: 08/04/20 Status: IN PROGRESS Entered by: NADIRA OLMEDO (PHOTOENGRAVING SKETCH MAKER) Date/Time Entered: 08/04/20@15:39 GOAL: Incision/wound healing Start Date: 08/04/20 Status: IN PROGRESS Entered by: NADIRA OLMEDO (PHOTOENGRAVING SKETCH MAKER) Date/Time Entered: 08/04/20@15:39 GOAL: Maintain fluid balance Start Date: 08/04/20 Status: IN PROGRESS Entered by: NADIRA OLMEDO (PHOTOENGRAVING SKETCH MAKER) Date/Time Entered: 08/04/20@15:39 GOAL: Manage pain Start Date: 08/04/20 Status: IN PROGRESS Entered by: NADIRA OLMEDO (PHOTOENGRAVING SKETCH MAKER) Date/Time Entered: 08/04/20@15:39 GOAL: Patient/family return demonstrate incision/wound care Start Date: 08/04/20 Status: IN PROGRESS Entered by: NADIRA OLMEDO (PHOTOENGRAVING SKETCH MAKER) Date/Time Entered: 08/04/20@15:39 GOAL: Prevent skin breakdown Start Date: 08/04/20 Status: IN PROGRESS Entered by: NADIRA OLMEDO (PHOTOENGRAVING SKETCH MAKER) Date/Time Entered: 08/04/20@15:39 GOAL: Self care Start Date: 08/04/20 Status: IN PROGRESS Entered by: NADIRA OLMEDO (PHOTOENGRAVING SKETCH MAKER) Date/Time Entered: 08/04/20@15:39 GOAL: Short Term Goal Start Date: 08/04/20 Status: IN PROGRESS Entered by: NADIRA OLMEDO (PHOTOENGRAVING SKETCH MAKER) Date/Time Entered: 08/04/20@15:39 INTERVENTION: Assess incision/wound Start Date: 08/04/20 Discipline: NURSE Frequency: EVERY DAY Care Action: CONTINUE Entered by: NADIRA OLMEDO (PHOTOENGRAVING SKETCH MAKER) Date/Time Entered: 08/04/20@15:39 INTERVENTION: Assess skin Start Date: 08/04/20 Discipline: NURSE Frequency: EVERY DAY Care Action: CONTINUE Entered by: NADIRA OLMEDO (PHOTOENGRAVING SKETCH MAKER) Date/Time Entered: 08/04/20@15:39 INTERVENTION: Assess skin turgor Start Date: 08/04/20 Discipline: NURSE Frequency: EVERY DAY Care Action: CONTINUE Entered by: NADIRA OLMEDO (PHOTOENGRAVING SKETCH MAKER) Date/Time Entered: 08/04/20@15:39 INTERVENTION: Daily skin care Start Date: 08/04/20 Discipline: NURSE Frequency: EVERY DAY Care Action: CONTINUE Entered by: NADIRA OLMEDO (PHOTOENGRAVING SKETCH MAKER) Date/Time Entered: 08/04/20@15:39 INTERVENTION: Educate on incision/wound care Start Date: 08/04/20 Discipline: NURSE Frequency: EVERY DAY Care Action: CONTINUE Entered by: NADIRA OLMEDO (PHOTOENGRAVING SKETCH MAKER) Date/Time Entered: 08/04/20@15:39 INTERVENTION: Encourage movement Start Date: 08/04/20 Discipline: NURSE Frequency: EVERY DAY Care Action: CONTINUE Entered by: NADIRA OLMEDO (PHOTOENGRAVING SKETCH MAKER) Date/Time Entered: 08/04/20@15:39 INTERVENTION: Medications as ordered Start Date: 08/04/20 Discipline: NURSE Frequency: EVERY DAY Care Action: CONTINUE Entered by: NADIRA OLMEDO (PHOTOENGRAVING SKETCH MAKER) Date/Time Entered: 08/04/20@15:39 INTERVENTION: Monitor vital signs Start Date: 08/04/20 Discipline: NURSE Frequency: EVERY DAY Care Action: CONTINUE Entered by: NADIRA OLMEDO (PHOTOENGRAVING SKETCH MAKER) Date/Time Entered: 08/04/20@15:39 INTERVENTION: Notify physician as needed Start Date: 08/04/20 Discipline: NURSE Frequency: EVERY DAY Care Action: CONTINUE Entered by: NADIRA OLMEDO (PHOTOENGRAVING SKETCH MAKER) Date/Time Entered: 08/04/20@15:39 INTERVENTION: Perineal care Start Date: 08/04/20 Discipline: NURSE Frequency: EVERY DAY Care Action: CONTINUE Entered by: NADIRA OLMEDO (PHOTOENGRAVING SKETCH MAKER) Date/Time Entered: 08/04/20@15:39 INTERVENTION: Promote circulation Start Date: 08/04/20 Discipline: NURSE Frequency: EVERY DAY Care Action: CONTINUE Entered by: NADIRA OLMEDO (PHOTOENGRAVING SKETCH MAKER) Date/Time Entered: 08/04/20@15:39 INTERVENTION: Skin and wound care Start Date: 08/04/20 Discipline: NURSE Frequency: EVERY DAY Care Action: CONTINUE Entered by: NADIRA OLMEDO (PHOTOENGRAVING SKETCH MAKER) Date/Time Entered: 08/04/20@15:39 INTERVENTION: Turn every 2 hours Start Date: 08/04/20 Discipline: NURSE Frequency: EVERY DAY Care Action: CONTINUE Entered by: NADIRA OLMEDO (PHOTOENGRAVING SKETCH MAKER) Date/Time Entered: 08/04/20@15:39 CATEGORY: Pain PROBLEM: Pain, acute Comments: Related to diagnosis: Related to medical condition: Start Date: 08/04/20 Status: ACTIVE Entered by: NADIRA OLMEDO (PHOTOENGRAVING SKETCH MAKER) Date/Time Entered: 08/04/20@15:38:39 GOAL: Keep patient informed Start Date: 08/04/20 Status: IN PROGRESS Entered by: NADIRA OLMEDO (PHOTOENGRAVING SKETCH MAKER) Date/Time Entered: 08/04/20@15:38:39 GOAL: Needs as appropriate Start Date: 08/04/20 Status: IN PROGRESS Entered by: NADIRA OLMEDO (PHOTOENGRAVING SKETCH MAKER) Date/Time Entered: 08/04/20@15:38:39 GOAL: Pain at tolerable level for patient Start Date: 08/04/20 Status: IN PROGRESS Entered by: NADIRA OLMEDO (PHOTOENGRAVING SKETCH MAKER) Date/Time Entered: 08/04/20@15:38:39 GOAL: Pain medication as needed Start Date: 08/04/20 Status: IN PROGRESS Entered by: NADIRA OLMEDO (PHOTOENGRAVING SKETCH MAKER) Date/Time Entered: 08/04/20@15:38:39 GOAL: Short Term Goal Start Date: 08/04/20 Status: IN PROGRESS Entered by: NADIRA OLMEDO (PHOTOENGRAVING SKETCH MAKER) Date/Time Entered: 08/04/20@15:38:39 INTERVENTION: Assess pain Start Date: 08/04/20 Discipline: NURSE Frequency: EVERY DAY Care Action: CONTINUE Entered by: NADIRA OLMEDO (PHOTOENGRAVING SKETCH MAKER) Date/Time Entered: 08/04/20@15:38:39 INTERVENTION: Assess response to medication Start Date: 08/04/20 Discipline: NURSE Frequency: EVERY DAY Care Action: CONTINUE Entered by: NADIRA OLMEDO (PHOTOENGRAVING SKETCH MAKER) Date/Time Entered: 08/04/20@15:38:39 INTERVENTION: Dim lights Start Date: 08/04/20 Discipline: NURSE Frequency: EVERY DAY Care Action: CONTINUE Entered by: NADIRA OLMEDO (PHOTOENGRAVING SKETCH MAKER) Date/Time Entered: 08/04/20@15:38:39 INTERVENTION: Medications as ordered Start Date: 08/04/20 Discipline: NURSE Frequency: EVERY DAY Care Action: CONTINUE Entered by: NADIRA OLMEDO (PHOTOENGRAVING SKETCH MAKER) Date/Time Entered: 08/04/20@15:38:39 INTERVENTION: Notify physician as needed Start Date: 08/04/20 Discipline: NURSE Frequency: EVERY DAY Care Action: CONTINUE Entered by: NADIRA OLMEDO (PHOTOENGRAVING SKETCH MAKER) Date/Time Entered: 08/04/20@15:38:39 INTERVENTION: Provide calm environment Start Date: 08/04/20 Discipline: NURSE Frequency: EVERY DAY Care Action: CONTINUE Entered by: NADIRA OLMEDO (PHOTOENGRAVING SKETCH MAKER) Date/Time Entered: 08/04/20@15:38:39 INTERVENTION: Reposition Start Date: 08/04/20 Discipline: NURSE Frequency: EVERY DAY Care Action: CONTINUE Entered by: NADIRA OLMEDO (PHOTOENGRAVING SKETCH MAKER) Date/Time Entered: 08/04/20@15:38:39 CATEGORY: Safety PROBLEM: Fall/injury Comments: Related to diagnosis: Related to medical condition: Start Date: 08/21/20 Status: ACTIVE Entered by: MICAELA CAT (PHOTOENGRAVING SKETCH MAKER) Date/Time Entered: 08/21/20@04:41:29 Start Date: 08/21/20 Status: RESOLVED Entered by: MALLORY MOON (PLANNING AIDE-RN) Date/Time Entered: 08/22/20@19:46:03 GOAL: Senior Care Goal Start Date: 08/21/20 Status: IN PROGRESS Entered by: MICAELA CAT (PHOTOENGRAVING SKETCH MAKER) Date/Time Entered: 08/21/20@04:41:29 GOAL: Maintain skin integrity Start Date: 08/21/20 Status: IN PROGRESS Entered by: MICAELA CAT (PHOTOENGRAVING SKETCH MAKER) Date/Time Entered: 08/21/20@04:41:29 GOAL: Patient safety Start Date: 08/21/20 Status: IN PROGRESS Entered by: MICAELA CAT (PHOTOENGRAVING SKETCH MAKER) Date/Time Entered: 08/21/20@04:41:29 GOAL: Patient/patient mechanical service representative verbalized understanding on fall and injury prevention Start Date: 08/21/20 Status: IN PROGRESS Entered by: MICAELA CAT (PHOTOENGRAVING SKETCH MAKER) Date/Time Entered: 08/21/20@04:41:29 GOAL: Prevent injury Start Date: 08/21/20 Status: IN PROGRESS Entered by: MICAELA CAT (PHOTOENGRAVING SKETCH MAKER) Date/Time Entered: 08/21/20@04:41:29 GOAL: Short Term Goal Start Date: 08/21/20 Status: IN PROGRESS Entered by: MICAELA CAT (PHOTOENGRAVING SKETCH MAKER) Date/Time Entered: 08/21/20@04:41:29 INTERVENTION: Bed in low position Start Date: 08/21/20 Discipline: NURSE Frequency: EVERY DAY Care Action: CONTINUE Entered by: MICAELA CAT (PHOTOENGRAVING SKETCH MAKER) Date/Time Entered: 08/21/20@04:41:30 INTERVENTION: Diversion Start Date: 08/21/20 Discipline: NURSE Frequency: EVERY DAY Care Action: CONTINUE Entered by: MICAELA CAT (PHOTOENGRAVING SKETCH MAKER) Date/Time Entered: 08/21/20@04:41:29 INTERVENTION: Emotional support Start Date: 08/21/20 Discipline: NURSE Frequency: EVERY DAY Care Action: CONTINUE Entered by: MICAELA CAT (PHOTOENGRAVING SKETCH MAKER) Date/Time Entered: 08/21/20@04:41:30 INTERVENTION: Follow high risk fall protocol Start Date: 08/21/20 Discipline: NURSE Frequency: EVERY DAY Care Action: CONTINUE Entered by: MICAELA CAT (PHOTOENGRAVING SKETCH MAKER) Date/Time Entered: 08/21/20@04:41:30 INTERVENTION: Medications as ordered Start Date: 08/21/20 Discipline: NURSE Frequency: EVERY DAY Care Action: CONTINUE Entered by: MICAELA CAT (PHOTOENGRAVING SKETCH MAKER) Date/Time Entered: 08/21/20@04:41:30 INTERVENTION: Notify physician as needed Start Date: 08/21/20 Discipline: NURSE Frequency: EVERY DAY Care Action: CONTINUE Entered by: MICAELA CAT (PHOTOENGRAVING SKETCH MAKER) Date/Time Entered: 08/21/20@04:41:30 INTERVENTION: Provide a safe environment Start Date: 08/21/20 Discipline: NURSE Frequency: EVERY DAY Care Action: CONTINUE Entered by: MICAELA CAT (PHOTOENGRAVING SKETCH MAKER) Date/Time Entered: 08/21/20@04:41:30 INTERVENTION: Vital signs remain stable Start Date: 08/21/20 Discipline: NURSE Frequency: EVERY DAY Care Action: CONTINUE Entered by: MICAELA CAT (PHOTOENGRAVING SKETCH MAKER) Date/Time Entered: 08/21/20@04:41:30 * Legacy Note - Conversion Interface Provider - 08/24/2020 11:55 AM EST Discharge Medication Reconciliation Report Aug 24, 2020@11:55:56 PATIENT: KATHERIN MARTINEZ : 1970 FEMALE Reported Allergies: TAPE, BEE STINGS, BAND-AIDS, LATEX, ADHESIVE TAPE This is a list of medications and their actions according to your latest visit. If this list is inaccurate, please let your provider know. CONTINUE taking the following meds: OXYCODONE 7.5MG/ACETAMINOPHEN 325MG TAB: TAKE 1 TABLET BY MOUTH THREE TIMES A DAY NEEDED Indication: GLIPIZIDE 5MG TAB UD: TAKE 2 TABLETS BY MOUTH TWICE A DAY Indication: FUROSEMIDE 20MG TAB: TAKE 1 TABLET BY MOUTH ONCE A DAY Indication: CITALOPRAM HYDROBROMIDE 20MG TAB UD: TAKE 1 TABLET BY MOUTH ONCE A DAY Indication: DILTIAZEM HCL 60MG TAB: TAKE 1.5 TABLETS BY MOUTH TWICE A DAY Indication: AMITRIPTYLINE HCL 50MG TAB: TAKE 2 TABLETS BY MOUTH ONCE A DAY Indication: METOPROLOL TARTRATE 50MG TAB UD: TAKE 1 TABLET BY MOUTH TWICE A DAY Indication: METOPROLOL TARTRATE 50MG TAB UD: TAKE 1 TABLET BY MOUTH TWICE A DAY Indication: METFORMIN HCL 500MG SA TAB: TAKE 2 TABLETS BY MOUTH TWICE A DAY Indication: PREGABALIN 75MG CAP: TAKE 1 CAPSULE BY MOUTH TWICE A DAY Indication: POTASSIUM CHLORIDE 10MEQ SA TAB: TAKE 1 TABLET BY MOUTH ONCE A DAY Indication: OMEPRAZOLE 20MG EC CAP: TAKE 2 CAPSULES BY MOUTH ONCE A DAY Indication: MAGNESIUM OXIDE 400MG TAB: TAKE 1 TABLET BY MOUTH TWICE A DAY Indication: LORATADINE 10MG TAB UD: TAKE 1 TABLET BY MOUTH ONCE A DAY Indication: ERGOCALCIFEROL (VITAMIN D) [id number] UNT CAP: TAKE 1 CAPSULE BY MOUTH Weekly Indication: BACLOFEN 10MG TAB: TAKE 1 TABLET BY MOUTH TWICE A DAY NEEDED Indication: ATORVASTATIN CALCIUM 40MG TAB: TAKE 2 TABLETS BY MOUTH ONCE A DAY Indication: EPI-PEN INJ,SOLN: INJECT 1 SUBCUTANEOUS ONCE A DAY NEEDED Indication: Date Finalized: 08/24/20@11:55 by SHIRA CRAMER (PHYSICIAN) * Legacy Note - Naomi Rock Mak - 08/24/2020 11:44 AM EST DATE/TIME OF DISCHARGE: 24-Aug-2020 11:44 MODE OF TRANSPORT: Wheelchair PERSON ACCOMPANIED PATIENT AT DISCHARGE: FAMILY DISCHARGE DISPOSITION: Home DIAGNOSIS - Lactic acidosis - History of mastectomy [BREWSTER] - Sepsis DIET: Low Salt, 1800 Calories ACTIVITY/RETURN TO WORK/SCHOOL: Level of Activity/Restrictions: TOLERATED. KEEP ARM IN SLING TO LIMIT MOVEMENT. CHELSEY CARE INSTRUCTED BY NURSE. STRIP, EMPTY AND RECORD OUTPUT BRING RECORD TO FOLLOW UP APT. FOLLOW UP WITH: Follow up with: [facility] Site/Services: Clinic Name/Site: with DR BREWSTER,Provider, in PCP 1 WEEK YOU WILL RECEIVE DISCHARGE INFORMATION AND INSTRUCTIONS ABOUT: RETURN TO ER FOR ANY PROBLEMS. *Pneumococcal vaccination: Patient declined *Influenza vaccination:Patient declined Patient did not receive Insulin during the hospital stay. Prescriptions given to: ESCRIBED Please bring all of your prescription bottles [...] or increased irritability. Patient/Parent Signature Date/Time * [employer] Note - Conversion Interface Provider - 08/24/2020 11:32 AM EST Discharge Medication Reconciliation Report Aug 24, 2020@11:32:59 PATIENT: KATHERIN MARTINEZ : 1970 FEMALE Reported Allergies: TAPE, BEE STINGS, BAND-AIDS, LATEX, ADHESIVE TAPE This is a list of medications and their actions according to your latest visit. If this list is inaccurate, please let your provider know. NEW meds that were prescribed today: OXYCODONE 7.5MG/ACETAMINOPHEN 325MG TAB: TAKE 1 TABLET OXYCODONE 7.5MG/ACETAMINOPHEN 325MG TAB BY MOUTH THREE TIMES A DAY NEEDED Indication: History of mastectomy BREWSTER AMOXICILLIN 875/CLAV K 125MG TAB UD: TAKE 1 TABLET AMOXICILLIN 875/CLAV K 125MG TAB UD BY MOUTH TWICE A DAY Indication: Sepsis The following meds were changed today: CONTINUE taking the following meds: OXYCODONE 7.5MG/ACETAMINOPHEN 325MG TAB: TAKE 1 TABLET BY MOUTH THREE TIMES A DAY NEEDED Indication: GLIPIZIDE 5MG TAB UD: TAKE 2 TABLETS BY MOUTH TWICE A DAY Indication: FUROSEMIDE 20MG TAB: TAKE 1 TABLET BY MOUTH ONCE A DAY Indication: CITALOPRAM HYDROBROMIDE 20MG TAB UD: TAKE 1 TABLET BY MOUTH ONCE A DAY Indication: DILTIAZEM HCL 60MG TAB: TAKE 1.5 TABLETS BY MOUTH TWICE A DAY Indication: AMITRIPTYLINE HCL 50MG TAB: TAKE 2 TABLETS BY MOUTH ONCE A DAY Indication: METOPROLOL TARTRATE 50MG TAB UD: TAKE 1 TABLET BY MOUTH TWICE A DAY Indication: METFORMIN HCL 500MG SA TAB: TAKE 2 TABLETS BY MOUTH TWICE A DAY Indication: PREGABALIN 75MG CAP: TAKE 1 CAPSULE BY MOUTH TWICE A DAY Indication: POTASSIUM CHLORIDE 10MEQ SA TAB: TAKE 1 TABLET BY MOUTH ONCE A DAY Indication: OMEPRAZOLE 20MG EC CAP: TAKE 2 CAPSULES BY MOUTH ONCE A DAY Indication: MAGNESIUM OXIDE 400MG TAB: TAKE 1 TABLET BY MOUTH TWICE A DAY Indication: LORATADINE 10MG TAB UD: TAKE 1 TABLET BY MOUTH ONCE A DAY Indication: ERGOCALCIFEROL (VITAMIN D) [id number] UNT CAP: TAKE 1 CAPSULE BY MOUTH Weekly Indication: BACLOFEN 10MG TAB: TAKE 1 TABLET BY MOUTH TWICE A DAY NEEDED Indication: ATORVASTATIN CALCIUM 40MG TAB: TAKE 2 TABLETS BY MOUTH ONCE A DAY Indication: EPI-PEN INJ,SOLN: INJECT 1 SUBCUTANEOUS ONCE A DAY NEEDED Indication: SUCRALFATE 1GM TAB: TAKE 1 TABLET BY MOUTH Indication: STOP taking the following meds: METOPROLOL TARTRATE 50MG TAB UD: TAKE 1 TABLET BY MOUTH TWICE A DAY Indication: Date Finalized: 08/24/20@11:32 by SHIRA CRAMER (PHYSICIAN) * Op Note - Sara York - 08/23/2020 5:35 PM EST PRE OPERATIVE DIAGNOSIS: right chest wall fluid collection POST OPERATIVE DIAGNOSIS: right chest wall fluid collection PROCEDURE: percutaneous drain placement into subcutaneous right chest wall fluid collection PHYSICIAN: sara york do SUPERVISOR RUBBER COVERING: none EBL: minimal, less than 5 cc URINE OUTPUT: na FLUIDS: na SPECIMEN REMOVED: 60 cc cloudy yellow fluid aspirated, sent to lab FINDINGS: Successful percutaneous drain placement into fluid collection in subcutaneous soft tissues right anterior chest wall. COMPLICATIONS: none DISPOSITION: Patient stable and ok to return to her hospital room/floor. * Legacy Note - Sol Castanon - 08/23/2020 9:38 AM EST This is a 49, NOT OR ,FEMALE who [place] [id number] [facility] [address] [id number] This information was collected from Patient Patient does not require assistance at home. Patient does not have a Living Will. Oriented to: Place, Person, Time Patient is able to drive Patient will have a family member/friend driving them home on discharge. Patient insurance coverage: Medicaid with prescription coverage The patient's primary care physician is Ricardo Contreras The patient's regular pharmacy is Other (describe) Comment: [facility] The patient does not currently receive home health services. The patient currently has no durable medical equipment in the home. The patient currently does not have hospice services. At this time, no needs have been identified, but will continue to monitor. CASE MANAGEMENT EDUCATION Discharge Plan Learner: patient Teaching Method: Handout, Lecture Evaluation: States understanding Who to call for help Learner: patient Teaching Method: Handout, Lecture Evaluation: States understanding CASE MANAGEMENT DISCHARGE PLAN: Initiated Priority: High Interventions: Pt to call Expected Outcome: Prepare/Discharge, Verb/Understand Review with patient/Family. INTER CASE CONFERENCE: Attendants: Nursing, Capacitor Assembler Needs identified: Continue current treatment plan ICC Handout was given? No ICC meeting complete? Yes Readmission Interview This interview is with the patient Is this readmission related to the previous admission? Yes, was the admission planned? No Did you leave AMA? No Did you visit any emergency room between visit? Yes Did you understand your discharge instructions? Yes Did you get your prescriptions filled at discharge? Yes At the time of discharge, did someone talk to you about... What your diagnoses were? Yes What tests or procedures needed to be done or followed up on after you left? Yes What to watch out for regarding worsening of your disease? Yes Who to contact (and how) if you were experiencing worsening of your disease? Yes Do you know how to call the doctor? Yes When you were discharged did you have a follow up appoinment with your doctor? Yes How long did you have to wait for this appointment? not sure Were you able to get this appointment? Yes What was your living situation prior to this admission? Home with support Do you and the family member live in the same house or apartment? Yes Is this support person a caregiver for someone else with medical problems or disabilities? No Does the support person have children under the age of 18? No In your opinion, what contributed to this readmission? * Legacy Note - Micaela Bhandari RN - 08/21/2020 12:42 AM EST 1. Wish to be Person endorses [...] killing yourself? No * Legacy Note - Micaela Bhandari RN - 08/21/2020 12:42 AM EST ADVANCE DIRECTIVES ASSESSMENT: The patient does not have an advance directive. Patient was provided with information regarding Advance Directives. Level of Support: LEVEL I Status: FULL CODE The patient is a Full Code and is to receive all available therapy including CPR. Ordering Provider: SAKINA (See Orders Tab for Code Status Order) * [place] Note - Micaela Bhandari RN - 08/21/2020 12:41 AM EST Patient assessment: Influenza Vaccine (June - November) Patient's age: 49 Adult patient (18 years of age or older) Patient/Family was counseled about Flu Vaccine. Pneumococcal Vaccine (PCV-13) (Year Round) Patient's age: 49 Patient/Family was counseled about PCV. documented in this encounter Plan of Treatment Not on file documented as of this encounter Procedures Procedure Name Priority Date/Time Associated Diagnosis Comments POCT GLUCOSE PERFORMABLE Routine 08/24/2020 11:41 AM EST GFR CALCULATED Routine 08/24/2020 4:44 AM EST BASIC METABOLIC PANEL Routine 08/24/2020 4:44 AM EST POCT GLUCOSE PERFORMABLE Routine 08/24/2020 12:04 AM EST POCT GLUCOSE PERFORMABLE Routine 08/23/2020 5:55 PM EST AEROBIC CULTURE Routine 08/23/2020 5:30 PM EST IR ASP/DRAIN HISTORICAL Routine 08/23/2020 5:04 PM EST SARS COV2, LUCRECIA PERFORMABLE Routine 08/23/2020 4:16 PM EST APTT Routine 08/23/2020 4:11 PM EST PROTIME-INR Routine 08/23/2020 4:11 PM EST POCT GLUCOSE PERFORMABLE Routine 08/23/2020 11:58 AM EST UREA NITROGEN, URINE Routine 08/22/2020 5:16 AM EST PROTEIN / CREATININE RATIO, URINE Routine 08/22/2020 5:16 AM EST SODIUM, URINE, RANDOM Routine 08/22/2020 5:16 AM EST PROTEIN, URINE, RANDOM Routine 0 5:16 AM EST CREATININE, URINE, RANDOM Routine 08/22/2020 5:16 AM EST GFR CALCULATED Routine 08/22/2020 4:06 AM EST CBC Routine 08/22/2020 4:06 AM EST MAGNESIUM Routine 08/22/2020 4:06 AM EST VANCOMYCIN, RANDOM Routine 08/22/2020 4: 06 AM EST BASIC METABOLIC PANEL Routine 08/22/2020 4:06 AM EST AEROBIC CULTURE Routine 08/20/2020 9:40 PM EST ANAEROBIC CULTURE Routine 08/20/2020 9:4 0 PM EST LACTIC ACID, VENOUS Routine 08/20/2020 9 :40 PM EST BLOOD CULTURE Routine 08/20/2020 6:46 PM EST BLOOD CULTURE Routine 08/20/2020 6:[address] CHEST WO IV CONTRAST Routine 08/20/2020 6:07 PM EST GFR CALCULATED Routine 08/20/2020 6:03 PM EST PROCALCITONIN Routine 08/20/2020 6:03 PM EST CBC WITH AUTO DIFFERENTIAL Routine 08/20/2020 6:03 PM EST URINALYSIS WITH MICROSCOPIC Routine 08/20/2020 6:03 PM EST LACTIC ACID, VENOUS Routine 08/20/2020 6 :03 PM EST BASIC METABOLIC PANEL Routine 08/20/2020 6:03 PM EST documented in this encounter Results * (ABNORMAL) POCT glucose meter (08/24/2020 11:41 AM EST) Glucose 243(H) 70 - 110 MG/DL 08/24/2020 11:41 AM EST [facility] 08/24/2020 11:4 1 AM EST 08/24/2020 11:59 AM EST Mario Velasquez MD LAB POINT OF CARE TE ST DOCKED DEVICE UNSOLICITED RESULTS Performing Organization Address City/[facility] de Phone Number [facility] [address] [place] [address], * (ABNORMAL) GFR CALCULATED (08/24/2020 4:44 AM EST) eGFR 53.1(L) 60.0 - 200.0 ML/MIN 08/24/2020 6:46 AM EST [facility] 08/24/2020 4:44 AM EST 08/24/2020 4:44 AM EST Shira Cramer MD LAB CHG PER FORMABLES Performing Organization Address [facility] Phone [facility] [address] * (ABNORMAL) Basic metabolic panel (08/24/2020 4:44 AM EST) Calcium 8.8 8.5 - 10.1 mg/dL 08/24/2020 6:46 AM EST [facility] Chloride 110(H) 98 - 107 mmol/L 08/24/2020 6:46 AM EST [facility] CO2 19(L) 21 - 32 mmol/L 08/24/2020 6:46 AM EST [facility] Creatinine 1.10 0.60 - 1.30 MG/DL 08/24/2020 6:46 AM EST [facility] Potassium 4.6 3.6 - 5.2 mmol/L 08/24/2020 6:46 AM EST [facility] Sodium 140 133 - 144 mmol/L 08/24/2020 6:46 AM EST [facility] BUN 11 7 - 18 MG/DL 08/24/2020 6:46 AM EST [facility] Glucose 88 70 - 110 MG/DL 08/24/2020 6:46 AM EST [facility] 08/24/2020 4:44 AM EST 08/24/2020 5:16 AM EST Shira Cramer MD LAB BLOOD O RDERABLES Performing Organization Address [facility] Co de Phone Number [facility] [address] [place] [address], * POCT glucose meter (08/24/2020 12:04 AM EST) Glucose 83 70 - 110 MG/DL 08/24/2020 12:04 AM EST [facility] 08/24/2020 12:0 4 AM EST 08/24/2020 12:23 AM EST Mario Velasquez MD LAB POINT OF CARE TE ST DOCKED DEVICE UNSOLICITED RESULTS Performing Organization Address City/[facility]/ZIP Co de Phone Number [facility] [address] [place] [address], * (ABNORMAL) POCT glucose meter (08/23/2020 5:55 PM EST) Glucose 309(H) 70 - 110 MG/DL 08/23/2020 5:55 PM EST [facility] 08/23/2020 5:55 PM EST 08/23/2020 6:10 PM EST Mario Velasquez MD LAB POINT OF CARE TE ST DOCKED DEVICE UNSOLICITED RESULTS Performing Organization Address City/[facility] Co de Phone Number [facility] [address] [place] [address], * (ABNORMAL) Aerobic culture (08/23/2020 5:30 PM EST) Culture FINAL 08/26/2020 7:13 AM EST [facility] Ampicillin + Sulbactam <=8/4 - Staphylococcus aureus(S) mcg/mL [facility] Ampicillin <=2 - Staphylococcus aureus(CANDY) mcg/mL [facility] Amoxicillin + Clavulanate <=4/2 - Staphylococcus aureus(S) mcg/mL [facility] Azithromycin <=2 - Staphylococcus aureus(S) mcg/mL [facility] Ceftriaxone <=4 - Staphylococcus aureus(S) mcg/mL [facility] Cephalothin <=8 - Staphylococcus aureus(S) mcg/mL [facility] Cefotaxime <=8 - Staphylococcus aureus(S) mcg/mL [facility] Cefazolin <=8 - Staphylococcus aureus(S) mcg/mL [facility] Ciprofloxacin <=1 - Staphylococcus aureus(S) mcg/mL [facility] Cefepime <=4 - Staphylococcus aureus(S) mcg/mL [facility] Ceftaroline <=0.5 - Staphylococcus aureus(S) mcg/mL [facility] Daptomycin <=0.5 - Staphylococcus aureus(S) mcg/mL [facility] Erythromycin <=0.25 - Staphylococcus aureus(S) mcg/mL [facility] Gentamicin <=4 - Staphylococcus aureus(S) mcg/mL [facility] Levofloxacin <=1 - Staphylococcus aureus(S) mcg/mL [facility] Linezolid 2 - Staphylococcus aureus(S) mcg/mL [facility] Meropenem <=2 - Staphylococcus aureus(S) mcg/mL [facility] Nafcillin <=0.25 - Staphylococcus aureus(S) mcg/mL [facility] Penicillin 2 - Staphylococcus aureus(CANDY) mcg/mL [facility] Piperacillin <=8 - Staphylococcus aureus(S) mcg/mL [facility] Rifampin <=1 - Staphylococcus aureus(S) mcg/mL [facility] Synercid <=0.5 - Staphylococcus aureus(S) mcg/mL [facility] Septra <=0.5/9.5 - Staphylococcus aureus(S) mcg/mL [facility] Tetracycline <=4 - Staphylococcus aureus(S) mcg/mL [facility] Tigecycline <=0.25 - Staphylococcus aureus(S) mcg/mL [facility] Vancomycin 0.5 - Staphylococcus aureus(S) mcg/mL [facility] 08/23/2020 5:30 PM EST 08/24/2020 9:14 AM EST Lesly Collazo NP LAB MICROBIOLOGY - G ENERAL ORDERABLES [facility] [address] [place] [address] * IR ASP/DRAIN HISTORICAL (08/23/2020 5:04 PM EST) Anatomical Region Laterality Modality X-Ray Angiograph y 08/23/2020 5:04 PM EST Narrative 08/23/2020 7:57 PM EST DATE OF PROCEDURE: 08/23/2020 PROCEDURE:Drain placement into fluid collection in the subcutaneous soft tissues overlying the right anterior chest wall SALT OPERATOR: Dr. Sara York D.O. INDICATIONS:Recurrent right chest wall fluid collection in a patient status post right mastectomy; drain placement ESTIMATED BLOOD LOSS:Minimal, less than 10 cc CONTRAST: None ANESTHESIA/MEDICATION: 2% lidocaine local anesthetic. ?Cardiopulmonary monitoring was continuously monitored by a dedicated healthcare professional throughout the procedure. COMPLICATIONS:None immediately TECHNIQUE/FINDINGS:After informed written consent and verification of the patient identification and the planned procedure were obtained, the patient was placed in a supine position in her hospital bed in the interventional radiology procedure room. Limited ultrasound of the right anterior chest wall was performed for surgical planning purposes demonstrating a moderate to large fluid collection. An appropriate skin entry site was chosen and was marked. Maximum barrier precautions were utilized. 2% lidocaine was used to anesthetize the skin and underlying subcutaneous soft tissues. Using direct ultrasound guidance, an 18-gauge needle was directed into the subcutaneous fluid collection in the right anterior chest wall soft tissues from a right anterolateral approach. Sales Clerk Supervisor image of the needle tip was stored for review. Short Amplatz wire was placed through the needle and was confirmed in the fluid collection with ultrasound. Additional lidocaine was used at the skin entry site. ??Incision in the skin was made at the skin entry site with a surgical blade. The 18-gauge needle was removed over the wire in favor of a dilator. The dilator was removed over the wire in favor of a 14 Trin[place]adian multipurpose drain. The wire and the inner stylet of the drain were removed. The cope loop of the drain was formed in the collection and was confirmed with ultrasound. ??Approximately 60 cc of cloudy yellow fluid was aspirated from the drain and was sent to the lab for further analysis; further substantiating that the drain was within the fluid collection in the subcutaneous soft tissues of the right anterior chest wall. ??2-0 silk suture was used to secure the drain to the skin. The drain was attached to closed bulb/bag suction device. Sterile dressings were applied. The patient tolerated the procedure well. ??There were no immediate complications. Impression: 1. Successful drain placement into subcutaneous fluid collection (probable postop seroma with or without infection) involving the soft tissues of the right anterior chest wall as above. Labs pending from the fluid. ??2. Monitor daily output from right anterior chest wall drain. ??3. Right anterior chest wall drain to remain to closed bulb/bag suction device. ??4. Follow-up in interventional radiology clinic 1 week post patient discharge from the hospital. Thanks for the referral. Please feel free to contact interventional radiology and/or myself with any questions or concerns. Dr. Sara York D.O. Report Sign Date: 08/23/2020 7:55 PM, Electronically Signed By: ??Sara York Procedure Note Sara York - 11/25/2021 DATE OF PROCEDURE: 08/23/2020 PROCEDURE:Drain placement into fluid collection in the subcutaneous softtissues overlying the right anterior chest wall SALT OPERATOR: Dr. Sara York D.O. INDICATIONS:Recurrent right chest wall fluid collection in a patientstatus post right mastectomy; drain placement ESTIMATED BLOOD LOSS:Minimal, less than 10 cc CONTRAST: None ANESTHESIA/MEDICATION: 2% lidocaine local anesthetic. Cardiopulmonary monitoring was continuously monitored by a dedicatedhealthcare professional throughout the procedure. COMPLICATIONS:None immediately TECHNIQUE/FINDINGS:After informed written consent and verification of thepatient identification and the planned procedure were obtained, thepatient was placed in a supine position in her hospital bed in theinterventional radiology procedure room. Limited ultrasound of the rightanterior chest wall was performed for surgical planning purposesdemonstrating a moderate to large fluid collection. An appropriate skinentry site was chosen and was marked. Maximum barrier precautions wereutilized. 2% lidocaine was used to anesthetize the skin and underlyingsubcutaneous soft tissues. Using direct ultrasound guidance, an 18-gaugeneedle was directed into the subcutaneous fluid collection in the rightanterior chest wall soft tissues from a right anterolateral approach.Sales Clerk Supervisor image of the needle tip was stored for review. ShortAmplatz wire was placed through the needle and was confirmed in the fluidcollection with ultrasound. Additional lidocaine was used at the skinentry site. Incision in the skin was made at the skin entry site with a surgicalblade. The 18-gauge needle was removed over the wire in favor of adilator. The dilator was removed over the wire in favor of a 14 Frenchmultipurpose drain. The wire and the inner stylet of the drain wereremoved. The cope loop of the drain was formed in the collection and wasconfirmed with ultrasound. Approximately 60 cc of cloudy yellow fluid was aspirated from the drainand was sent to the lab for further analysis; further substantiating thatthe drain was within the fluid collection in the subcutaneous soft tissuesof the right anterior chest wall. 2-0 silk suture was used to secure the drain to the skin. The drain wasattached to closed bulb/bag suction device. Sterile dressings wereapplied. The patient tolerated the procedure well. There were no immediate complications. Impression: 1. Successful drain placement into subcutaneous fluid collection (probablepostop seroma with or without infection) involving the soft tissues of theright anterior chest wall as above. Labs pending from the fluid. 2. Monitor daily output from right anterior chest wall drain. 3. Right anterior chest wall drain to remain to closed bulb/bag suctiondevice. 4. Follow-up in interventional radiology clinic 1 week post patientdischarge from the hospital. Thanks for the referral. Please feel free to contact interventionalradiology and/or myself with any questions or concerns. Dr. Sara York D.O. Report Sign Date: 08/23/2020 7:55 PM, Electronically Signed By: Sara York Sara York DO IMG IR PROCEDURES * SARS COV2, LUCRECIA PERFORMABLE (08/23/2020 4:16 PM EST) SARS COVID LUCRECIA NEGATIVE 08/23/2020 4:16 PM EST [facility] 08/23/2020 4:16 PM EST 08/23/2020 4:25 PM EST Mario Velasquez MD LAB POINT OF CARE TE ST DOCKED DEVICE UNSOLICITED RESULTS Performing Organization Address [facility] Phone Number [facility] [address] * APTT (08/23/2020 4:11 PM EST) Pathologist [facility] aPTT 22 22 - 30 sec 08/23/2020 4:44 PM EST [facility] 08/23/2020 4:11 PM EST 08/23/2020 4:15 PM EST Sara York DO LAB BLOOD ORDERABLES Performing Organization Address [facility] Phone Number [facility] [address] * Protime-INR (08/23/2020 4:11 PM EST) Protime 10.3 9.3 - 11.5 sec 08/23/2020 4:44 PM EST [facility] INR 0.99 0.89 - 1.11 08/23/2020 4:44 PM EST [facility] 08/23/2020 4:11 PM EST 08/23/2020 4:15 PM EST Sara York DO LAB BLOOD ORDERABLES Performing Organization Address [facility] Co ar Phone Number [facility] [address] [place] [address], * (ABNORMAL) POCT glucose meter (08/23/2020 11:58 AM EST) Glucose 394(H) 70 - 110 MG/DL 08/23/2020 11:58 AM EST [facility] 08/23/2020 11:5 8 AM EST 08/23/2020 12:12 PM EST Mario Velasquez MD LAB POINT OF CARE TE ST DOCKED DEVICE UNSOLICITED RESULTS Performing Organization Address [facility] Phone Number [facility] [address] [place] [address], [place] * Protein, urine, random (08/22/2020 5:16 AM EST) Protein, Urine 21.1 mg/dL 08/22/2020 6:36 AM EST [facility] 08/22/2020 5:16 AM EST 08/22/2020 6:16 AM EST Mario Velasquez MD LAB URINE ORDERABLES Performing Organization Address [facility] Phone Number [facility] [address] [place] [address], [place] * Sodium, urine, random (08/22/2020 5:16 AM EST) Sodium, Urine 69 mmol/L 08/22/2020 6:36 AM EST [facility] 08/22/2020 5:16 AM EST 08/22/2020 6:16 AM EST Mario Velasquez MD LAB URINE ORDERABLES Performing Organization Address [facility] Co ar Phone Number [facility] [address] [place] [address], [place] * Creatinine, urine, random (08/22/2020 5:16 AM EST) Creatinine, Urine 54.0 MG/DL 08/22/2020 6:36 AM EST [facility] 08/22/2020 5:16 AM EST 08/22/2020 6:16 AM EST Mario Velasquez MD LAB URINE ORDERABLES Performing Organization Address [facility] Co de Phone Number [facility] [address] [place] [address], * (ABNORMAL) Urea nitrogen, urine (08/22/2020 5:16 AM EST) Urea Nitrogen, Urine 244(H) 7 - 20 MG/DL 08/22/2020 6:36 AM EST [facility] 08/22/2020 5:16 AM EST 08/22/2020 6:16 AM EST Mario Velasquez MD LAB URINE ORDERABLES Performing Organization Address [facility] Phone Number [facility] [address] [place] [address], [place] * Protein / creatinine ratio, urine (08/22/2020 5:16 AM EST) Prot/Creat, Ur 0.39 08/22/2020 6:36 AM EST [facility] 08/22/2020 5:16 AM EST 08/22/2020 6:16 AM EST Mario Velasquez MD LAB URINE ORDERABLES Performing Organization Address [facility] de Phone Number [facility] [address] [place] [address], * (ABNORMAL) GFR CALCULATED (08/22/2020 4:06 AM EST) eGFR 37.1(L) 60.0 - 200.0 ML/MIN 08/22/2020 4:55 AM EST [facility] 08/22/2020 4:06 AM EST 08/22/2020 4:06 AM EST Mario Velasquez MD LAB CHG PERFORMABLES [facility] [address] [place] [address], * (ABNORMAL) CBC (08/22/2020 4:06 AM EST) Platelets 248 122 - 454 K/ul 08/22/2020 4:41 AM EST [facility] RBC 3.790 3.450 - 5.400 M/ul 08/22/2020 4:41 AM EST [facility] MCV 81.3 78.2 - 101.8 fl 08/22/2020 4:41 AM EST [facility] MCH 26.3(L) 26.4 - 33.3 pg 08/22/2020 4:41 AM EST [facility] MCHC 32.3(L) 32.5 - 35.3 g/dL 08/22/2020 4:41 AM EST [facility] RDW 15.8 10.1 - 16.2 % 08/22/2020 4:41 AM EST [facility] MPV 8.2 6.4 - 10.4 fl 08/22/2020 4:41 AM EST [facility] Auto WBC 10.40 3.00 - 11.30 K/ul 08/22/2020 4:41 AM EST [facility] Hematocrit 30.8 29.9 - 45.5 % 08/22/2020 4:41 AM EST [facility] Hemoglobin 10.0 10.0 - 16.0 gm/dl 08/22/2020 4:41 AM EST [facility] 08/22/2020 4:06 AM EST 08/22/2020 4:26 AM EST Mario Velasquez MD LAB BLOOD ORDERABLES [facility] [address] [place] [address], * Vancomycin, random (08/22/2020 4:06 AM EST) Vancomycin, Random 10.8 ug/mL 08/22/2020 4:57 AM EST [facility] 08/22/2020 4:06 AM EST 08/22/2020 4:24 AM EST Mario Velasquez MD LAB BLOOD ORDERABLES Performing Organization Address [facility] Co de Phone Number [facility] [address] * Magnesium (08/22/2020 4:06 AM EST) Magnesium 1.9 1.7 - 2.4 MG/DL 08/22/2020 4:55 AM EST [facility] 08/22/2020 4:06 AM EST 08/22/2020 4:24 AM EST Mario Velasquez MD LAB BLOOD ORDERABLES Performing Organization Address [facility] Phone Number [facility] [address] * (ABNORMAL) Basic metabolic panel (08/22/2020 4:06 AM EST) Calcium 8.9 8.5 - 10.1 mg/dL 08/22/2020 4:55 AM EST [facility] Chloride 107 98 - 107 mmol/L 08/22/2020 4:55 AM EST [facility] CO2 20(L) 21 - 32 mmol/L 08/22/2020 4:55 AM EST [facility] Creatinine 1.50(H) 0.60 - 1.30 MG/DL 08/22/2020 4:55 AM EST [facility] Potassium 3.6 3.6 - 5.2 mmol/L 08/22/2020 4:55 AM EST [facility] Sodium 135 133 - 144 mmol/L 08/22/2020 4:55 AM EST [facility] BUN 13 7 - 18 MG/DL 08/22/2020 4:55 AM EST [facility] Glucose 218(H) 70 - 110 MG/DL 08/22/2020 4:55 AM EST [facility] 08/22/2020 4:06 AM EST 08/22/2020 4:24 AM EST Mario Velasquez MD LAB BLOOD ORDERABLES Performing Organization Address [facility] Co de Phone Number [facility] [address] * Anaerobic culture (08/20/2020 9:40 PM EST) Culture FINAL NO ANAEROBES ISOLATED 08/24/2020 7:51 AM EST [facility] 08/20/2020 9:40 PM EST 08/20/2020 10:35 PM EST Mario Velasquez MD LAB MICROBIOLOGY - G ENERAL ORDERABLES [facility] [address] [place] [address] * (ABNORMAL) Aerobic culture (08/20/2020 9:40 PM EST) Culture FINAL 08/23/2020 8:20 AM EST [facility] Ampicillin + Sulbactam <=8/4 - Staphylococcus aureus(S) mcg/mL [facility] Ampicillin 8 - Staphylococcus aureus(CANDY) mcg/mL [facility] Amoxicillin + Clavulanate <=4/2 - Staphylococcus aureus(S) mcg/mL [facility] Azithromycin <=2 - Staphylococcus aureus(S) mcg/mL [facility] Ceftriaxone <=4 - Staphylococcus aureus(S) mcg/mL [facility] Cephalothin <=8 - Staphylococcus aureus(S) mcg/mL [facility] Cefotaxime <=8 - Staphylococcus aureus(S) mcg/mL [facility] Cefazolin <=8 - Staphylococcus aureus(S) mcg/mL [facility] Ciprofloxacin <=1 - Staphylococcus aureus(S) mcg/mL [facility] Cefepime <=4 - Staphylococcus aureus(S) mcg/mL [facility] Ceftaroline <=0.5 - Staphylococcus aureus(S) mcg/mL [facility] Daptomycin <=0.5 - Staphylococcus aureus(S) mcg/mL [facility] Erythromycin <=0.25 - Staphylococcus aureus(S) mcg/mL [facility] Gentamicin <=4 - Staphylococcus aureus(S) mcg/mL [facility] Levofloxacin <=1 - Staphylococcus aureus(S) mcg/mL [facility] Linezolid 4 - Staphylococcus aureus(S) mcg/mL [facility] Meropenem <=2 - Staphylococcus aureus(S) mcg/mL [facility] Nafcillin 0.5 - Staphylococcus aureus(S) mcg/mL [facility] Penicillin >2 - Staphylococcus aureus(CANDY) mcg/mL [facility] Piperacillin <=8 - Staphylococcus aureus(S) mcg/mL [facility] Rifampin <=1 - Staphylococcus aureus(S) mcg/mL [facility] Synercid <=0.5 - Staphylococcus aureus(S) mcg/mL [facility] Septra <=0.5/9.5 - Staphylococcus aureus(S) mcg/mL [facility] Tetracycline <=4 - Staphylococcus aureus(S) mcg/mL [facility] Tigecycline <=0.25 - Staphylococcus aureus(S) mcg/mL [facility] Vancomycin 1 - Staphylococcus aureus(S) mcg/mL [facility] 08/20/2020 9:40 PM EST 08/20/2020 10:35 PM EST Jose Barkley MD LAB MICROBIOLOGY - GENERAL ORDERABLES Performing Organization Address [facility] Phone Number [facility] [address] * Lactic acid, plasma (08/20/2020 9:40 PM EST) Pathologist [facility] Lactate 1.4 0.4 - 2.0 mmol/L 08/20/2020 10:26 PM EST [facility] 08/20/2020 9:40 PM EST 08/20/2020 9:53 PM EST Jose Barkley MD LAB BLOOD ORDERABL ES Performing Organization Address [facility] Phone Number [facility] [address] [address] * Blood culture (08/20/2020 6:46 PM EST) Blood Culture FINAL NO GROWTH AT 24 HOURS INCUBATION NO GROWTH AT 48 HOURS INCUBATION NO GROWTH AT 5 DAYS 08/25/2020 9:17 PM EST [facility] 08/20/2020 6:46 PM EST 08/20/2020 7:36 PM EST Jose Barkley MD LAB MICROBIOLOGY - GENERAL ORDERABLES Performing Organization Address [facility] Co de Phone Number [facility] [address] * Blood culture (08/20/2020 6:35 PM EST) Blood Culture FINAL NO GROWTH AT 24 HOURS INCUBATION NO GROWTH AT 48 HOURS INCUBATION NO GROWTH AT 5 DAYS 08/25/2020 9:17 PM EST [facility] 08/20/2020 6:35 PM EST 08/20/2020 7:37 PM EST Jose Barkley MD LAB MICROBIOLOGY - GENERAL ORDERABLES [facility] [address] * CT chest wo IV contrast (08/20/2020 6:07 PM EST) Anatomical Region Laterality Modality Body, Chest Computed Tomogra phy 08/20/2020 6:07 PM EST Narrative 08/21/2020 11:02 AM EST PROCEDURE: CT CHEST W/O CONT: 08/20/2020 CLINICAL INFORMATION: Post op swelling ERB 21 Emergency ??Department Room 21 Radiation Optimization: All CT scans at this facility use at least one of these dose optimization techniques: automated exposure control; mA and/or kV adjustment per patient size (includes targeted exams where dose is matched to clinical indication); or iterative reconstruction. COMPARISON: Chest x-ray 02/20/2020 CT T-spine 08/12/2016 Evaluation of mediastinal and vascular structures limited by lack of intravenous contrast. OSSEOUS STRUCTURES: ??No acute osseous abnormality. ??Mild/moderate multilevel spondylotic changes of the spine. LUNGS: ??Mild bilateral dependent atelectasis. No acute focal airspace consolidation. PLEURA: ??No pneumothorax or pleural effusion. CARDIOVASCULAR: ??Heart is normal in size. No significant pericardial effusion. Mild calcific atherosclerotic disease of the thoracic aortic arch. MEDIASTINUM: ??No enlarged mediastinal adenopathy. Several subcentimeter mediastinal lymph nodes present, not significantly enlarged via CT criteria. THYROID: ??Grossly unremarkable. UPPER ABDOMEN ??:No acute abnormality. ?? Postsurgical changes of right mastectomy. Large fluid collection about the right superior chest wall and operative bed extending to the midline measuring approximately 12.4 x 4.9 x 10.2 cm, collection mildly above simple attenuation fluid values on current exam. Differential considerations include postoperative seroma, evolving hematoma and underlying abscess not excluded. ??There is additional adjacent ill-defined scattered fluid within subcutaneous tissues and associated stranding. Differential considerations include component of subcutaneous edema, evolving hematoma or component of underlying cellulitis and soft tissue infection is not excluded, recommend clinical correlation. ?? Borderline enlarged 10 mm right axillary lymph node (image 25 series 2) with a few additional subcentimeter right axillary lymph nodes present. Impression: Postsurgical changes of prior right mastectomy. Large 12.4 x 4.9 x 10.2 cm fluid collection about the right anterior chest wall as above, differential considerations include postoperative seroma, evolving hematoma and component of underlying abscess not entirely excluded, recommend clinical correlation. There is additional ill-defined fluid and stranding seen throughout subcutaneous tissues of the right chest wall into the region of the right axilla. Differential considerations include evolving contusion or subcutaneous edema. Underlying infectious/inflammatory change and cellulitis not excluded, recommend clinical correlation. There is component of mild underlying thickening of right pectoralis musculature, nonspecific, potentially postoperative, although component of myositis not excluded. Borderline enlarged 10 mm right axillary lymph node, nonspecific. ??Component of metastatic disease not entirely excluded. If further evaluation is indicated, consider follow-up PET/CT. Mild scattered scarring and atelectasis without acute focal consolidation. Report Sign Date: 08/21/2020 11:00 AM, Electronically Signed By: ??Partha Cardenas MD Procedure Note Teddy Cardenas - 11/25/2021 PROCEDURE: CT CHEST W/O CONT: 08/20/2020 CLINICAL INFORMATION: Post op swelling ERB 21 Emergency Department Room 21 Radiation Optimization: All CT scans at this facility use at least one ofthese dose optimization techniques: automated exposure control; mA and/orkV adjustment per patient size (includes targeted exams where dose ismatched to clinical indication); or iterative reconstruction. COMPARISON: Chest x-ray 02/20/2020 CT T-spine 08/12/2016 Evaluation of mediastinal and vascular structures limited by lack ofintravenous contrast. OSSEOUS STRUCTURES: No acute osseous abnormality. Mild/moderatemultilevel spondylotic changes of the spine. LUNGS: Mild bilateral dependent atelectasis. No acute focal airspaceconsolidation. PLEURA: No pneumothorax or pleural effusion. CARDIOVASCULAR: Heart is normal in size. No significant pericardialeffusion. Mild calcific atherosclerotic disease of the thoracic aorticarch. MEDIASTINUM: No enlarged mediastinal adenopathy. Several subcentimetermediastinal lymph nodes present, not significantly enlarged via CTcriteria. THYROID: Grossly unremarkable. UPPER ABDOMEN :No acute abnormality. Postsurgical changes of right mastectomy. Large fluid collection aboutthe right superior chest wall and operative bed extending to the midlinemeasuring approximately 12.4 x 4.9 x 10.2 cm, collection mildly abovesimple attenuation fluid values on current exam. Differentialconsiderations include postoperative seroma, evolving hematoma andunderlying abscess not excluded. There is additional adjacent ill-defined scattered fluid withinsubcutaneous tissues and associated stranding. Differential considerationsinclude component of subcutaneous edema, evolving hematoma or component ofunderlying cellulitis and soft tissue infection is not excluded, recommendclinical correlation. Borderline enlarged 10 mm right axillary lymph node (image 25 series 2)with a few additional subcentimeter right axillary lymph nodes present. Impression: Postsurgical changes of prior right mastectomy. Large 12.4 x 4.9 x 10.2cm fluid collection about the right anterior chest wall as above,differential considerations include postoperative seroma, evolvinghematoma and component of underlying abscess not entirely excluded,recommend clinical correlation. There is additional ill- defined fluid andstranding seen throughout subcutaneous tissues of the right chest wallinto the region of the right axilla. Differential considerations includeevolving contusion or subcutaneous edema. Underlyinginfectious/inflammatory change and cellulitis not excluded, recommendclinical correlation. There is component of mild underlying thickening ofright pectoralis musculature, nonspecific, potentially postoperative,although component of myositis not excluded. Borderline enlarged 10 mm right axillary lymph node, nonspecific. Component of metastatic disease not entirely excluded. If furtherevaluation is indicated, consider follow-up PET/CT. Mild scattered scarring and atelectasis without acute focalconsolidation. Report Sign Date: 08/21/2020 11:00 AM, Electronically Signed By: Partha Cardenas MD Jose Barkley MD IMG CT PROCEDURES * (ABNORMAL) GFR CALCULATED (08/20/2020 6:03 PM EST) eGFR 30.1(L) 60.0 - 200.0 ML/MIN 08/20/2020 7:17 PM [facility] 08/20/2020 6:03 PM EST 08/20/2020 6:03 PM EST Jose Barkley MD LAB CHG PERFORMABL ES [facility] [address] [place] [address], * (ABNORMAL) Urinalysis with microscopic (08/20/2020 6:03 PM EST) RBC, Urine 1 0 - 4 /hpf 08/20/2020 8:13 PM [facility] WBC, Urine 22(H) 0 - 5 /hpf 08/20/2020 8:13 PM [facility] Squamous Epithelial, Urine 7(H) 0 - 6 /hpf 08/20/2020 8:13 PM [facility] Bacteria, Urine NEGATIVE /hpf 08/20/2020 8:13 PM [facility] Hyaline Casts, Urine 6(H) 0 - 4 /lpf 08/20/2020 8:13 PM [facility] Color, Urine YELLOW 08/20/2020 8:13 PM [facility] Clarity, Urine CLOUDY 08/20/2020 8:13 PM [facility] Glucose, Urine >=1000 mg/dL 08/20/2020 8:13 PM [facility] Bilirubin, Urine NEGATIVE 08/20/2020 8:13 PM [facility] Specific [place], Urine 1.024 1.006 - 1.035 08/20/2020 8:13 PM [facility] Blood, Urine NEGATIVE 08/20/2020 8:13 PM [facility] pH, Urine 5.5 5.0 - 9.0 08/20/2020 8:13 PM [facility] Protein, Urine 30 mg/dL 08/20/2020 8:13 PM [facility] Urobilinogen, Urine 0.2 E.U./DL 08/20/2020 8:13 PM [facility] Nitrite, Urine NEGATIVE 08/20/2020 8:13 PM [facility] Leukocytes, Urine SMALL(A) 08/20/2020 8:13 PM [facility] 08/20/2020 6:03 PM EST 08/20/2020 7:46 PM EST Jose Barkley MD LAB URINE ORDERABL ES [facility] [address] * (ABNORMAL) CBC auto differential (08/20/2020 6:03 PM EST) Platelets 243 122 - 454 K/ul 08/20/2020 7:04 PM EST [facility] RBC 4.200 3.450 - 5.400 M/ul 08/20/2020 7:04 PM EST [facility] MCV 79.0 78.2 - 101.8 fl 08/20/2020 7:04 PM EST [facility] MCH 25.4(L) 26.4 - 33.3 pg 08/20/2020 7:04 PM EST [facility] MCHC 32.1(L) 32.5 - 35.3 g/dL 08/20/2020 7:04 PM EST [facility] RDW 15.1 10.1 - 16.2 % 08/20/2020 7:04 PM EST [facility] MPV 8.6 6.4 - 10.4 fl 08/20/2020 7:04 PM EST [facility] Neutrophils % 80.5 43.0 - 83.0 % 08/20/2020 7:04 PM EST [facility] Neutrophils Absolute 9.7(H) 2.7 - 6.9 K/ul 08/20/2020 7:04 PM EST [facility] Auto WBC 12.00(H) 3.00 - 11.30 K/ul 08/20/2020 7:04 PM EST [facility] nRBC 0.00 08/20/2020 7:04 PM EST [facility] Basophils % 0.3 0.0 - 2.0 % 08/20/2020 7:04 PM EST [facility] Basophils Absolute 0.0 0.0 - 0.2 K/ul 08/20/2020 7:04 PM EST [facility] Eosinophils % 1.0 0.0 - 9.0 % 08/20/2020 7:04 PM EST [facility] Eosinophils Absolute 0.1 0.0 - 0.9 K/ul 08/20/2020 7:04 PM EST [facility] Lymphocytes % 10.5 10.0 - 42.0 % 08/20/2020 7:04 PM EST [facility] Lymphocytes Absolute 1.3 0.4 - 3.9 K/ul 08/20/2020 7:04 PM EST [facility] Monocytes % 7.7 1.0 - 14.0 % 08/20/2020 7:04 PM EST [facility] Monocytes Absolute 0.9 0.2 - 0.9 K/ul 08/20/2020 7:04 PM EST [facility] Hematocrit 33.2 29.9 - 45.5 % 08/20/2020 7:04 PM EST [facility] Hemoglobin 10.6 10.0 - 16.0 gm/dl 08/20/2020 7:04 PM EST [facility] 08/20/2020 6:03 PM EST 08/20/2020 6:52 PM EST Jose Barkley MD LAB BLOOD ORDERABL ES Performing Organization Address [facility] Phone Number [facility] [address] * (ABNORMAL) Lactic acid, plasma (08/20/2020 6:03 PM EST) Lactate 2.4(H) 0.4 - 2.0 mmol/L 08/20/2020 7:33 PM EST [facility] 08/20/2020 6:03 PM EST 08/20/2020 6:52 PM EST Jose Bakrley MD LAB BLOOD ORDERABL ES Performing Organization Address [facility] Phone Number [facility] [address] * (ABNORMAL) Procalcitonin Test (08/20/2020 6:03 PM EST) Procalcitonin 0.52(H) 0.00 - 0.50 ng/mL 08/20/2020 7:27 PM EST [facility] 08/20/2020 6:03 PM EST 08/20/2020 6:52 PM EST Jose Barkley MD LAB BLOOD ORDERABL ES Performing Organization Address [facility] Co de Phone Number [facility] [address] * (ABNORMAL) Basic metabolic panel (08/20/2020 6:03 PM EST) Calcium 8.9 8.5 - 10.1 mg/dL 08/20/2020 7:17 PM EST [facility] Chloride 99 98 - 107 mmol/L 08/20/2020 7:17 PM EST [facility] CO2 20(L) 21 - 32 mmol/L 08/20/2020 7:17 PM EST [facility] Creatinine 1.80(H) 0.60 - 1.30 MG/DL 08/20/2020 7:17 PM EST [facility] Potassium 4.4 3.6 - 5.2 mmol/L 08/20/2020 7:17 PM EST [facility] Sodium 129(L) 133 - 144 mmol/L 08/20/2020 7:17 PM EST [facility] BUN 13 7 - 18 MG/DL 08/20/2020 7:17 PM EST [facility] Glucose 252(H) 70 - 110 MG/DL 08/20/2020 7:17 PM EST [facility] 08/20/2020 6:03 PM EST 08/20/2020 6:52 PM EST Jose Barkley MD LAB BLOOD ORDERABL ES [facility] [address] documented in this encounter Visit Diagnoses Diagnosis Infection following a procedure, other surgical site, initial encounter Sepsis due to methicillin susceptible Staphylococcus aureus Severe sepsis without septic shock (CODE) Postprocedural seroma of a musculoskeletal structure following other procedure Acute kidney failure, unspecified Hypo-osmolality and hyponatremia Removal of other organ (partial) (total) as the cause of abnormal reaction of the patient, or of later complication, without mention of misadventure at the time of the procedure Essential (primary) hypertension Unspecified essential hypertension Type 2 diabetes mellitus without complications shelter (current) use of oral hypoglycemic drugs Other chronic pain Dorsalgia, unspecified Malignant neoplasm of unspecified site of right female breast Acquired absence of right breast and nipple Latex allergy status Contact with and (suspected) exposure to other viral communicable diseases documented in this encounter Care Teams Cement Handler Relationship Specialty Start Date End Date Ricardo Contreras MD [address] [place] [address] PCP - General documented as of this encounter
--- OUTSIDE RECORDS SUMMARY | 2024-08-18 13:14 | XMS_ITS | Encounter Summary ---
Author Organization [facility] nter Address [address] [address] [place] [address] Care Team Providers Care Director Plans Name Role Phone Ricardo Contreras MD Primary Care Provider + Encounter Details Date Type Department Care Team (Latest Contact Info) Description 05/14/2020 12:01 AM EDT - 05/14/2020 11:59 PM EDT Hospital Encounter [facility] OUTPATIENT [address] [place] [address] Ricardo Contreras MD [address] [place] [address] Other abnormal and inconclusive findings on diagnostic imaging of breast Discharge Disposition: Home or Self [...] Comments BI US BREAST LIMITED RIGHT Routine 05/14/2020 10:28 AM EDT BI MAMMOGRAM DIAGNOSTIC TOMOSYNTHESIS RIGHT Routine 05/14/2020 9:40 AM EDT BI MAMMOGRAM DIAGNOSTIC RIGHT Routine 05/14/2020 9:40 AM EDT documented in this encounter Results * Right breast US limited (05/14/2020 10:28 AM EDT) Anatomical Region Laterality Modality Breast Right Ultrasound 05/14/2020 10:2 8 AM EDT Narrative 05/14/2020 5:24 PM EDT PROCEDURE: MA MAMMO DIAG RIGHT, US BREAST RT , MA MAMMO DIAG RT W/JORGE A: 05/14/2020 CLINICAL INFORMATION: ABNORMAL SCREENING MAMMOGRAM COMPARISON: Multiple prior mammograms, most recent 04/08/2020. BREAST DENSITY: The breast tissue is heterogeneously dense. ??This may lower the sensitivity of mammography. FINDINGS: Diagnostic right mammogram performed with spot compression CC and MLO views as well as dedicated ML view for previously seen right breast lesion. Partially obscured irregular 2 cm intermediate to isodense lesion about the 11:00 right breast approximately 6 cm from the nipple. ??No suspicious calcification. Diagnostic right breast ultrasound performed within 11:00 right breast within region of mammographic abnormality. Irregular 19 x 17 x 15 mm mass within the 11:00 right breast. The lesion demonstrates indistinct and angular margins with heterogeneous or predominantly hypoechoic echotexture and component of slight shadowing. Impression: 19 mm right breast lesion 11:00 as above. BI-RADS: 4. ??Suspicious. RECOMMENDATION: Ultrasound-guided biopsy 11:00 right breast mass. Your x-ray mammogram shows that your breast [...] new physician and/or supplier. Report Sign Date: 05/14/2020 5:22 PM, Electronically Signed By: Partha James MD Procedure Note Eribertomine Teddy - 11/25/2021 PROCEDURE: MA MAMMO DIAG RIGHT, US BREAST RT , MA MAMMO DIAG RT W/JORGE A:05/14/2020 CLINICAL INFORMATION: ABNORMAL SCREENING MAMMOGRAM COMPARISON: Multiple prior mammograms, most recent 04/08/2020. BREAST DENSITY: The breast tissue is heterogeneously dense. This maylower the sensitivity of mammography. FINDINGS: Diagnostic right mammogram performed with spot compression CCand MLO views as well as dedicated ML view for previously seen rightbreast lesion. Partially obscured irregular 2 cm intermediate to isodense lesion aboutthe 11:00 right breast approximately 6 cm from the nipple. No suspicious calcification. Diagnostic right breast ultrasound performed within 11:00 right breastwithin region of mammographic abnormality. Irregular 19 x 17 x 15 mm mass within the 11:00 right breast. The lesiondemonstrates indistinct and angular margins with heterogeneous orpredominantly hypoechoic echotexture and component of slight shadowing. Impression: 19 mm right breast lesion 11:00 as above. BI-RADS: 4. Suspicious. RECOMMENDATION: Ultrasound-guided biopsy 11:00 right breast mass. Your x-ray mammogram shows that your breast [...] new physician and/or supplier. Report Sign Date: 05/14/2020 5:22 PM, Electronically Signed By: Partha Cardenas MD Ricardo Contreras MD IMG US PROCEDURE S * BI Diagnostic mammogram right (05/14/2020 9:40 AM EDT) Anatomical Region Laterality Modality Breast Right Mammography 05/14/2020 9:40 AM EDT Narrative 05/14/2020 5:24 PM EDT PROCEDURE: MA MAMMO DIAG RIGHT, US BREAST RT , MA MAMMO DIAG RT W/JORGE A: 05/14/2020 CLINICAL INFORMATION: ABNORMAL SCREENING MAMMOGRAM COMPARISON: Multiple prior mammograms, most recent 04/08/2020. BREAST DENSITY: The breast tissue is heterogeneously dense. ??This may lower the sensitivity of mammography. FINDINGS: Diagnostic right mammogram performed with spot compression CC and MLO views as well as dedicated ML view for previously seen right breast lesion. Partially obscured irregular 2 cm intermediate to isodense lesion about the 11:00 right breast approximately 6 cm from the nipple. ??No suspicious calcification. Diagnostic right breast ultrasound performed within 11:00 right breast within region of mammographic abnormality. Irregular 19 x 17 x 15 mm mass within the 11:00 right breast. The lesion demonstrates indistinct and angular margins with heterogeneous or predominantly hypoechoic echotexture and component of slight shadowing. Impression: 19 mm right breast lesion 11:00 as above. BI-RADS: 4. ??Suspicious. RECOMMENDATION: Ultrasound-guided biopsy 11:00 right breast mass. Your x-ray mammogram shows that your breast [...] new physician and/or supplier. Report Sign Date: 05/14/2020 5:22 PM, Electronically Signed By: Partha ??Theresa CAREY Procedure Note Teddy Cardenas - 11/25/2021 PROCEDURE: MA MAMMO DIAG RIGHT, US BREAST RT , MA MAMMO DIAG RT W/JORGE A:05/14/2020 CLINICAL INFORMATION: ABNORMAL SCREENING MAMMOGRAM COMPARISON: Multiple prior mammograms, most recent 04/08/2020. BREAST DENSITY: The breast tissue is heterogeneously dense. This maylower the sensitivity of mammography. FINDINGS: Diagnostic right mammogram performed with spot compression CCand MLO views as well as dedicated ML view for previously seen rightbreast lesion. Partially obscured irregular 2 cm intermediate to isodense lesion aboutthe 11:00 right breast approximately 6 cm from the nipple. No suspicious calcification. Diagnostic right breast ultrasound performed within 11:00 right breastwithin region of mammographic abnormality. Irregular 19 x 17 x 15 mm mass within the 11:00 right breast. The lesiondemonstrates indistinct and angular margins with heterogeneous orpredominantly hypoechoic echotexture and component of slight shadowing. Impression: 19 mm right breast lesion 11:00 as above. BI-RADS: 4. Suspicious. RECOMMENDATION: Ultrasound-guided biopsy 11:00 right breast mass. Your x-ray mammogram shows that your breast [...] new physician and/or supplier. Report Sign Date: 05/14/2020 5:22 PM, Electronically Signed By: Partha Cardenas MD Ricardo Contreras MD IMG BI PROCEDURE S * BI Diagnostic mammogram with tomosynthesis right (05/14/2020 9:40 AM EDT) Anatomical Region Laterality Modality Breast Right Mammography 05/14/2020 9:40 AM EDT Narrative 05/14/2020 5:24 PM EDT PROCEDURE: MA MAMMO DIAG RIGHT, US BREAST RT , MA MAMMO DIAG RT W/JORGE A: 05/14/2020 CLINICAL INFORMATION: ABNORMAL SCREENING MAMMOGRAM COMPARISON: Multiple prior mammograms, most recent 04/08/2020. BREAST DENSITY: The breast tissue is heterogeneously dense. ??This may lower the sensitivity of mammography. FINDINGS: Diagnostic right mammogram performed with spot compression CC and MLO views as well as dedicated ML view for previously seen right breast lesion. Partially obscured irregular 2 cm intermediate to isodense lesion about the 11:00 right breast approximately 6 cm from the nipple. ??No suspicious calcification. Diagnostic right breast ultrasound performed within 11:00 right breast within region of mammographic abnormality. Irregular 19 x 17 x 15 mm mass within the 11:00 right breast. The lesion demonstrates indistinct and angular margins with heterogeneous or predominantly hypoechoic echotexture and component of slight shadowing. Impression: 19 mm right breast lesion 11:00 as above. BI-RADS: 4. ??Suspicious. RECOMMENDATION: Ultrasound-guided biopsy 11:00 right breast mass. Your x-ray mammogram shows that your breast [...] new physician and/or supplier. Report Sign Date: 05/14/2020 5:22 PM, Electronically Signed By: Partha ??Theresa CAREY Procedure Note Teddy Cardenas - 11/25/2021 PROCEDURE: BOBO MAMMO DIAG RIGHT, US BREAST RT , BOBO MAMMO DIAG RT W/JORGE A:05/14/2020 CLINICAL INFORMATION: ABNORMAL SCREENING MAMMOGRAM COMPARISON: Multiple prior mammograms, most recent 04/08/2020. BREAST DENSITY: The breast tissue is heterogeneously dense. This maylower the sensitivity of mammography. FINDINGS: Diagnostic right mammogram performed with spot compression CCand MLO views as well as dedicated ML view for previously seen rightbreast lesion. Partially obscured irregular 2 cm intermediate to isodense lesion aboutthe 11:00 right breast approximately 6 cm from the nipple. No suspicious calcification. Diagnostic right breast ultrasound performed within 11:00 right breastwithin region of mammographic abnormality. Irregular 19 x 17 x 15 mm mass within the 11:00 right breast. The lesiondemonstrates indistinct and angular margins with heterogeneous orpredominantly hypoechoic echotexture and component of slight shadowing. Impression: 19 mm right breast lesion 11:00 as above. BI-RADS: 4. Suspicious. RECOMMENDATION: Ultrasound-guided biopsy 11:00 right breast mass. Your x-ray mammogram shows that your breast [...] new physician and/or supplier. Report Sign Date: 05/14/2020 5:22 PM, Electronically Signed By: Partha Cardenas MD Ricardo Contreras MD IMG BI PROCEDURE S documented in this encounter Visit Diagnoses Diagnosis Other abnormal and inconclusive findings on diagnostic imaging of breast documented in this encounter Care Teams Director Plans Relationship Specialty Start Date End Date Ricardo Contreras MD [address] [place] [address] PCP - General documented as of this encounter
--- OUTSIDE RECORDS SUMMARY | 2024-08-18 13:14 | XMS_ITS | Encounter Summary ---
Author Organization [facility] nter Address [address] [place], [place] [id number] [place], [place] [address] Care Team Providers Care Straightener Gun Parts Name Role Phone Ricardo Contreras MD Primary Care Provider + Encounter Details Date Type Department Care Team (Latest Contact Info) Description 07/27/2020 2:21 PM EST - 07/27/2020 11:59 PM EST Hospital Encounter [facility] CONVERSION OUTPATIENT [address] [place] [address] Joe Brewster MD [address] [place] [phone] Malignant neoplasm of unspecified site of unspecified female breast (CMS/HCC); Encounter for screening for other viral diseases Discharge Disposition: Home or Self Care [...] of unspecified site of unspecified female breast Encounter for screening for other viral diseases documented in this encounter Care Teams Straightener Gun Parts Relationship Specialty Start Date End Date Ricardo Contreras MD [address] [place] [address] PCP - General documented as of this encounter
--- OUTSIDE RECORDS SUMMARY | 2024-08-18 13:15 | XMS_ITS | Encounter Summary ---
Author Organization [facility] nter Address [address] [place], [place] [id number] [place] [address] Care Team Providers Care Regulatory Affairs Internship Name Role Phone Ricardo Contreras MD Primary Care Provider + Encounter Details Date Type Department Care Team (Latest Contact Info) Description 09/23/2019 8:44 AM EST - 09/23/2019 11:59 PM EST Hospital Encounter PMC CONVERSION OUTPATIENT [address] [place] [address] Ubaldo Yuen, DO [address] [place] [address] Postlaminectomy syndrome, not elsewhere classified; Spondylosis without myelopathy or radiculopathy, lumbosacral region; Cervicalgia Discharge Disposition: Home or Self Care Social [...] as of this encounter Visit Diagnoses Diagnosis Postlaminectomy syndrome, not elsewhere classified Spondylosis without myelopathy or radiculopathy, lumbosacral region Cervicalgia documented in this encounter Care Teams Regulatory Affairs Internship Relationship Specialty Start Date End Date Ricardo Contreras MD [address] [place] [address] PCP - General documented as of this encounter
--- OUTSIDE RECORDS SUMMARY | 2024-08-18 13:15 | XMS_ITS | Encounter Summary ---
Author Organization [facility] nter Address [address] [place], [place] [address] [place] [address] Care Team Providers Care Flight Nurse Name Role Phone Ricardo Contreras MD Primary Care Provider + Encounter Details Date Type Department Care Team (Latest Contact Info) Description 11/26/2019 8:13 AM EDT - 11/26/2019 11:59 PM EDT Hospital Encounter PMC CONVERSION OUTPATIENT [address] [place] [address] Ubaldo Yuen, DO [address] [place] [address] Postlaminectomy syndrome, not elsewhere classified; Other spondylosis, lumbar region Discharge Disposition: Home or Self [...] Diagnoses Diagnosis Postlaminectomy syndrome, not elsewhere classified Other spondylosis, lumbar region documented in this encounter Care Teams Flight Nurse Relationship Specialty Start Date End Date Ricardo Contreras MD [address] [place] [address] PCP - General documented as of this encounter
--- OUTSIDE RECORDS SUMMARY | 2024-08-18 13:15 | XMS_ITS | Encounter Summary ---
Author Organization [facility] nter Address [address] [place], [place] [address] [place], [place] [address] Care Team Providers Care Coil Maker Name Role Phone Ricardo Contreras MD Primary Care Provider + Encounter Details Date Type Department Care Team (Late st Contact Info) Description 12/19/2018 9:03 AM EDT - 12/19/2018 11:59 PM EDT Hospital Encounter PMC CONVERSION OUTPATIENT [address] [place] [address] Ubaldo Yuen, DO [address] [place] [address] Social History Tobacco Use Types Packs/Day Years [...] on filedocumented in this encounter Care Teams Coil Maker Relationship Specialty Start Date End Date Ricardo Contreras MD [address] [place] [address] PCP - General documented as of this encounter
--- OUTSIDE RECORDS SUMMARY | 2024-08-18 13:15 | XMS_ITS | Encounter Summary ---
Author Organization [facility] nter Address [address] [place], [place] [address] [place], [place] [address] Care Team Providers Care General Road Production Manager Name Role Phone Ricardo Contreras MD Primary Care Provider + Encounter Details Date Type Department Care Team (Latest Contact Info) Description 03/17/2019 1:49 PM EDT - 03/17/2019 11:59 PM EDT Hospital Encounter PMC CONVERSION OUTPATIENT [address] [place] [address] Ubaldo Yuen, DO [address] [place] [address] Myalgia, unspecified site Discharge Disposition: Home or Self Care Social [...] encounter Visit Diagnoses Diagnosis Myalgia, unspecified site documented in this encounter Care Teams General Road Production Manager Relationship Specialty Start Date End Date Ricardo Contreras MD [address] [place] [address] PCP - General documented as of this encounter
--- OUTSIDE RECORDS SUMMARY | 2024-08-18 13:15 | XMS_ITS | Encounter Summary ---
Author Organization [facility] nter Address [address] [place], [place] [address] [place], [place] [address] Care Team Providers Care Gas Main Fitter Helper Name Role Phone Ricardo Contreras MD Primary Care Provider + Encounter Details Date Type Department Care Team (Late st Contact Info) Description 11/14/2018 7:33 AM EST - 11/14/2018 11:59 PM EST Hospital Encounter PMC CONVERSION OUTPATIENT [address] [place] [address] Ubaldo Yuen, DO [address] [place] [address] Social History Tobacco Use Types Packs/Day Years [...] filedocumented in this encounter Care Teams Gas Main Fitter Helper Relationship Specialty Start Date End Date Ricardo Contreras MD [address] [place] [address] PCP - General documented as of this encounter
--- OUTSIDE RECORDS SUMMARY | 2024-08-18 13:15 | XMS_ITS | Encounter Summary ---
Author Organization [facility] nter Address [address] [place], [place] [address] [place], [place] [address] Care Team Providers Care Senior Logistics Manager Name Role Phone Ricardo Contreras MD Primary Care Provider + Encounter Details Date Type Department Care Team (Late st Contact Info) Description 06/05/2018 9:43 AM EDT - 06/05/2018 11:59 PM EDT Hospital Encounter PMC CONVERSION OUTPATIENT [address] [place] [address] Ubaldo Yuen, DO [address] [place] [address] Social History Tobacco Use Types Packs/Day Years [...] filedocumented in this encounter Care Teams Senior Logistics Manager Relationship Specialty Start Date End Date Ricardo Contreras MD [address] [place] [address] PCP - General documented as of this encounter
--- OUTSIDE RECORDS SUMMARY | 2024-08-18 13:15 | XMS_ITS | Encounter Summary ---
Author Organization [facility] nter Address [address] [place], [place] [address] [place], [place] [address] Care Team Providers Care Ethics Instructor Name Role Phone Ricardo Contreras MD Primary Care Provider + Encounter Details Date Type Department Care Team (Late st Contact Info) Description 01/01/2019 12:01 AM EDT - 01/02/2019 11:59 AM EDT Hospital Encounter PMC CONVERSION OUTPATIENT [address] [place] [address] Vahe Burerll, [address] [place] [phone] Social History Tobacco Use Types Packs/Day Years [...] Procedure Name Priority Date/Time Associated Diagnosis Comments IR BIOPSY HISTORICAL Routine 01/02/2019 1:54 PM EDT documented in this encounter Results * IR BIOPSY HISTORICAL (01/02/2019 1:54 PM EDT) Anatomical Region Laterality Modality X-Ray Angiograph y 01/02/2019 1:54 PM EDT Narrative 01/02/2019 3:15 PM EDT PROCEDURE: IR BIOPSY PAROTID PERC CORE NEEDLE: 01/02/2019 DIAGNOSIS: Left parotid nodule INDICATIONS:Fluid removal and sampling is needed. METER TESTER POLYPHASE: LONI Olson APRN PROCEDURE: The patient is brought to interventional radiology suite. Placed supine on table. Ultrasound imaging is performed to identify entry site. The site is sterilely prepped and draped in usual fashion. 1% lidocaine is used for topical anesthesia. Under ultrasound guidance 3 separate passes of 21-gauge FNA biopsies performed on Left of parotid. Samples are sent to lab. All needles removed. Sterile dressing applied. COMPLICATIONS: None ESTIMATED BLOOD LOSS: Less than 5 ml Impression: Successful ultrasound-guided FNA of left parotid mass Report Sign Date: 01/02/2019 3:13 PM, Electronically Signed By: ??Tda Thomas Procedure Note Tad Thomas NP - 11/25/2021 PROCEDURE: IR BIOPSY PAROTID PERC CORE NEEDLE: 01/02/2019 DIAGNOSIS: Left parotid nodule INDICATIONS:Fluid removal and sampling is needed. METER TESTER POLYPHASE: LONI Olson APRN PROCEDURE: The patient is brought to interventional radiology suite.Placed supine on table. Ultrasound imaging is performed to identify entrysite. The site is sterilely prepped and draped in usual fashion. 1%lidocaine is used for topical anesthesia. Under ultrasound guidance 3separate passes of 21-gauge FNA biopsies performed on Left of parotid.Samples are sent to lab. All needles removed. Sterile dressing applied. COMPLICATIONS: None ESTIMATED BLOOD LOSS: Less than 5 ml Impression: Successful ultrasound-guided FNA of left parotid mass Report Sign Date: 01/02/2019 3:13 PM, Electronically Signed By: Tad Thomas Vahe JOHNSON IR PROCEDURES documented in this encounter Visit Diagnoses Not on filedocumented in this encounter Care Teams Ethics Instructor Relationship Specialty Start Date End Date Ricardo Contreras MD [address] [place] [id number] PCP - General documented as of this encounter
--- OUTSIDE RECORDS SUMMARY | 2024-08-18 13:15 | XMS_ITS | Encounter Summary ---
Author Organization [facility] nter Address [address] [place] [address] [place] [address] Care Team Providers Care Department Chair Name Role Phone Ricardo Contreras MD Primary Care Provider + Encounter Details Date Type Department Care Team (Latest Contact Info) Description 07/04/2019 4:04 PM EDT - 07/04/2019 11:59 PM EDT Hospital Encounter PMC CONVERSION OUTPATIENT [address] [place] [address] Ricardo Contreras MD [address] [place] [id number] Pain in left leg Discharge Disposition: Home or Self Care Social [...] Priority Date/Time Associated Diagnosis Comments US VENOUS LE LT DOPPLER Routine 07/04/2019 4:11 PM EDT documented in this encounter Results * US venous LE LT doppler (07/04/2019 4:11 PM EDT) Anatomical Region Laterality Modality Lower Extremities Ultrasound 07/04/2019 4:11 PM EDT Narrative 07/04/2019 5:38 PM EDT PROCEDURE: US VENOUS LE LT DOPPLER : 07/04/2019 CLINICAL INFORMATION: lower extremity pain Deep venous system was assessed from the level of the inguinal crease down to Jerson's canal. The deep venous system was compressible throughout its course. ??There is no intraluminal thrombus formation, or abnormal venous ??Doppler signal. Strong augmentation with compression of the calf was noted. Impression: No evidence of deep venous thrombosis of the left lower extremity. Report Sign Date: 07/04/2019 5:36 PM, Electronically Signed By: ??Kiran Herman MD Procedure Note Kiran Herman MD - 11/25/2021 PROCEDURE: US VENOUS LE LT DOPPLER : 07/04/2019 CLINICAL INFORMATION: lower extremity pain Deep venous system was assessed from the level of the inguinal creasedown to Jerson's canal. The deep venous system was compressible throughout its course. There is no intraluminal thrombus formation, or abnormal venous Doppler signal. Strong augmentation with compression of the calf wasnoted. Impression: No evidence of deep venous thrombosis of the left lower extremity. Report Sign Date: 07/04/2019 5:36 PM, Electronically Signed By: Kiran Herman MD Ricardo Contreras MD IMG US PROCEDURE S documented in this encounter Visit Diagnoses Diagnosis Pain in left leg documented in this encounter Care Teams Department Chair Relationship Specialty Start Date End Date Ricardo Contreras MD [address] [place] [address] PCP - General documented as of this encounter
--- OUTSIDE RECORDS SUMMARY | 2024-08-18 13:15 | XMS_ITS | Encounter Summary ---
Author Organization [facility] nter Address [address] [place] [address] [place] [address] Care Team Providers Care Senior Accounts Payable Specialist Name Role Phone Ricardo Contreras MD Primary Care Provider + Encounter Details Date Type Department Care Team (Late st Contact Info) Description 11/25/2019 12:01 AM EDT - 11/25/2019 11:59 PM EDT Hospital Encounter PMC CONVERSION OUTPATIENT [address] [place] [address] Ricardo Contreras MD [address] [place] [address] Social History Tobacco Use Types Packs/Day Years [...] filedocumented in this encounter Care Teams Senior Accounts Payable Specialist Relationship Specialty Start Date End Date Ricardo Contreras MD [address] [place] [address] PCP - General documented as of this encounter
--- OUTSIDE RECORDS SUMMARY | 2024-08-18 13:15 | XMS_ITS | Encounter Summary ---
Author Organization [facility] nter Address [address] [place], [place] [address] [place], [place] [address] Care Team Providers Care Plumbing Engineering Draftsperson Name Role Phone Ricardo Contreras MD Primary Care Provider + Encounter Details Date Type Department Care Team (Latest Contact Info) Description 09/25/2019 9:38 AM EST - 09/25/2019 11:59 PM EST Hospital Encounter PMC CONVERSION OUTPATIENT [address] [place] [phone] Ferny Mims MD [address] [place] [phone] Procedure and treatment not carried out, unspecified reason Discharge Disposition: Home or Self Care Social [...] as of this encounter Visit Diagnoses Diagnosis Procedure and treatment not carried out, unspecified reason documented in this encounter Care Teams Plumbing Engineering Draftsperson Relationship Specialty Start Date End Date Ricardo Contreras MD [address] [place] [address] PCP - General documented as of this encounter
--- OUTSIDE RECORDS SUMMARY | 2024-08-18 13:15 | XMS_ITS | Encounter Summary ---
Author Organization [facility] nter Address [address] [place], [place] [address] [place] [address] Care Team Providers Care Erp Developer Name Role Phone Ricardo Contreras MD Primary Care Provider + Encounter Details Date Type Department Care Team (Latest Contact Info) Description 02/06/2020 10:25 AM EDT - 02/06/2020 11:59 PM EDT Hospital Encounter PMC CONVERSION OUTPATIENT [address] [place] [address] Ubaldo Yuen, DO [address] [place] [address] Other chronic pain; Postlaminectomy syndrome, not elsewhere classified; Other spondylosis, lumbar region; Other spondylosis, lumbosacral region; Encounter for therapeutic drug level monitoring; 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
--- OUTSIDE RECORDS SUMMARY | 2024-08-18 13:15 | XMS_ITS | Encounter Summary ---
Author Organization [facility] nter Address [address] [place], [place] [address] [place] [address] Care Team Providers Care Biomedical Specialist Name Role Phone Ricardo Contreras MD Primary Care Provider + Encounter Details Date Type Department Care Team (Latest Contact Info) Description 03/11/2020 7:28 AM EDT - 03/11/2020 11:59 PM EDT Hospital Encounter PMC CONVERSION OUTPATIENT [address] [place] [address] Ubaldo Yuen, DO [address] [place] [address] Postlaminectomy syndrome, not elsewhere classified; Other spondylosis, lumbar region; Myalgia, unspecified site Discharge Disposition: Home or [...] not elsewhere classified Other spondylosis, lumbar region Myalgia, unspecified site documented in this encounter Care Teams Biomedical Specialist Relationship Specialty Start Date End Date Ricardo Contreras MD [address] [place] [address] PCP - General documented as of this encounter
--- OUTSIDE RECORDS SUMMARY | 2024-08-18 13:15 | XMS_ITS | Encounter Summary ---
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
--- OUTSIDE RECORDS SUMMARY | 2024-08-18 13:15 | XMS_ITS | Encounter Summary ---
Author Organization [facility] nter Address [address] [place], [place] [address] [place], [place] [address] Care Team Providers Care Stocking Inspector Name Role Phone Ricardo Contreras MD Primary Care Provider + Encounter Details Date Type Department Care Team (Late st Contact Info) Description 08/14/2018 7:44 AM EST - 08/14/2018 11:59 PM EST Hospital Encounter PMC CONVERSION OUTPATIENT [address] [place] [address] Ubaldo Yuen, DO [address] [place] [address] Social History Tobacco Use Types Packs/Day Years [...] on filedocumented in this encounter Care Teams Stocking Inspector Relationship Specialty Start Date End Date Ricardo Contreras MD [address] [place] [address] PCP - General documented as of this encounter
--- OUTSIDE RECORDS SUMMARY | 2024-08-18 13:15 | XMS_ITS | Encounter Summary ---
Author Organization [facility] nter Address [address] [place], [place] [address] [place], [place] [address] Care Team Providers Care Sales Engineer Engineered Products Name Role Phone Ricardo Contreras MD Primary Care Provider + Encounter Details Date Type Department Care Team (Late st Contact Info) Description 07/03/2018 7:29 AM EDT - 07/03/2018 11:59 PM EDT Hospital Encounter PMC CONVERSION OUTPATIENT [address] [place] [address] Ubaldo Yuen, DO [address] [place] [address] Social History Tobacco Use Types Packs/Day Years [...] filedocumented in this encounter Care Teams Sales Engineer Engineered Products Relationship Specialty Start Date End Date Ricardo Contreras MD [address] [place] [address] PCP - General documented as of this encounter
--- OUTSIDE RECORDS SUMMARY | 2024-08-18 13:15 | XMS_ITS | Encounter Summary ---
Author Organization [facility] nter Address [address] [place], [place] [address] [place] [address] Care Team Providers Care Nurse Epidemiologist Name Role Phone Ricardo Contreras MD Primary Care Provider + Encounter Details Date Type Department Care Team (Late st Contact Info) Description 09/13/2018 7:41 AM EST - 09/13/2018 11:59 PM EST Hospital Encounter PMC CONVERSION OUTPATIENT [address] [place] [address] Ubaldo Yuen, DO [address] [place] [address] Social History Tobacco Use Types Packs/Day Years [...] on filedocumented in this encounter Care Teams Nurse Epidemiologist Relationship Specialty Start Date End Date Ricardo Contreras MD [address] [place] [address] PCP - General documented as of this encounter
--- OUTSIDE RECORDS SUMMARY | 2024-08-18 13:15 | XMS_ITS | Encounter Summary ---
Author Organization [facility] nter Address [address] [place], [place] [address] [place] [address] Care Team Providers Care Window Dresser Name Role Phone Ricardo Contrears MD Primary Care Provider + Encounter Details Date Type Department Care Team (Latest Contact Info) Description 02/11/2019 7:40 AM EDT - 02/11/2019 11:59 PM EDT Hospital Encounter PMC CONVERSION OUTPATIENT [address] [place] [address] Ubaldo Yuen, DO [address] [place] [address] Postlaminectomy syndrome, not elsewhere classified; Other spondylosis, [...] site documented in this encounter Care Teams Window Dresser Relationship Specialty Start Date End Date Ricardo Contreras MD [address] [place] [address] PCP - General documented as of this encounter
--- OUTSIDE RECORDS SUMMARY | 2024-08-18 13:15 | XMS_ITS | Encounter Summary ---
Author Organization [facility] nter Address [address] [place] [address] Care Team Providers Care Structural Steel Detailer Name Role Phone Ricardo Contreras MD Primary Care Provider + Encounter Details Date Type Department Care Team (Latest Contact Info) Description 02/20/2020 6:21 PM EDT - 02/20/2020 10:40 PM EDT Hospital Encounter [facility] CONVERSION OUTPATIENT [address] [place] [address] Jose Barkley MD [address] [place] [address] Acute kidney failure, unspecified; Urinary tract infection, site not specified; Type 2 diabetes mellitus without complications (CMS/HCC); Essential (primary) hypertension; roasterman (current) use of oral hypoglycemic drugs; Other long term care social worker (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 Discharge Disposition: Home or [...] Name Priority Date/Time Associated Diagnosis Comments CT CERVICAL SPINE WO IV CONTRAST Routine 02/20/2020 8:[address] HEAD WO IV CONTRAST Routine 02/20/2020 8:46 PM EDT XR CHEST 1 VIEW Routine 02/20/2020 8:44 PM EDT XR KNEE 3 VIEWS LEFT Routine 02/20/2020 8:44 PM EDT HCG, URINE, QUALITATIVE Routine 02/20/2020 8:07 PM EDT DRUG SCREEN PANEL, URINE Routine 02/20/2020 8:07 PM EDT URINALYSIS WITH MICROSCOPIC Routine 02/20/2020 8:07 PM EDT URINE CULTURE Routine 02/20/2020 8:04 PM EDT GFR CALCULATED Routine 02/20/2020 6:59 PM EDT CBC WITH AUTO DIFFERENTIAL Routine 02/20/2020 6:59 PM EDT TROPONIN (HIGH SENSITIVE) Routine 02/20/2020 6:59 PM EDT APTT Routine 02/20/2020 6:59 PM EDT PROTIME-INR Routine 02/20/2020 6:59 PM EDT TSH Routine 02/20/2020 6:59 PM EDT T4 Routine 02/20/2020 6:59 PM EDT PHOSPHORUS Routine 02/20/2020 6:59 PM EDT B-TYPE NATRIURETIC PEPTIDE Routine 02/20/2020 6:59 PM EDT MAGNESIUM Routine 02/20/2020 6:59 PM EDT LIPASE Routine 02/20/2020 6:59 PM EDT AMMONIA Routine 02/20/2020 6:59 PM EDT HEPATIC FUNCTION PANEL Routine 02/20/2020 6:59 PM EDT BASIC METABOLIC PANEL Routine 02/20/2020 6:59 PM EDT documented in this encounter Results * CT cervical spine wo IV contrast (02/20/2020 8:46 PM EDT) Anatomical Region Laterality Modality Spine, C-spine Computed Tomogra phy 02/20/2020 8:46 PM EDT Narrative 02/20/2020 9:10 PM EDT PROCEDURE INFORMATION: ?Exam: CT Cervical Spine Without Contrast ?Exam date and time: 02/20/2020 9:02 PM ?Age: 49 years old ?Clinical indication: Other: AMS; Additional info: AMS -- ?? TECHNIQUE: ?Imaging protocol: Computed tomography images of the cervical spine without ??contrast. ?Radiation optimization: All CT scans at this facility use at least one of these ??dose optimization techniques: automated exposure control; mA and/or kV ??adjustment per patient size (includes targeted exams where dose is matched to ??clinical indication); or iterative reconstruction. ?? COMPARISON: ?CT Spine Cervical w/o Contrast 08/12/2016 8:44 PM ?? FINDINGS: ?Vertebrae: Anterior fusion noted C4-C5 without evidence of complication. 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 ?There is no evidence of acute fracture. The facet joints are normal. ?Discs/Spinal canal/Neural foramina: No significant disc protrusion. No severe ??spinal canal stenosis. No significant neural foraminal narrowing. ?? Soft tissues: There are no soft tissue masses or fluid collections. ?Lungs: Lung apices are normal. ?? Impression: ??1. 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 ?2. No evidence of acute fracture. ?? Procedure Note Andrea Gtz - 11/25/2021 PROCEDURE INFORMATION: Exam: CT Cervical Spine Without Contrast Exam date and time: 02/20/2020 9:02 PM Age: 49 years old Clinical indication: Other: AMS; Additional info: AMS -- TECHNIQUE: Imaging protocol: Computed tomography images of the cervical spinewithout contrast. Radiation optimization: All CT scans at this facility use at least oneof these dose optimization techniques: automated exposure control; mAand/or kV adjustment per patient size (includes targeted exams where doseis matched to clinical indication); or iterative reconstruction. COMPARISON: CT Spine Cervical w/o Contrast 08/12/2016 8:44 PM FINDINGS: Vertebrae: Anterior fusion noted C4-C5 without evidence of complication. Moderate anterior hypertrophic bridging noted throughout the cervicalspine. There is no evidence of acute fracture. The facet joints are normal. Discs/Spinal canal/Neural foramina: No significant disc protrusion. Nosevere spinal canal stenosis. No significant neural foraminal narrowing. Soft tissues: There are no soft tissue masses or fluid collections. Lungs: Lung apices are normal. Impression: 1. Moderate anterior hypertrophic bridging noted throughout the cervicalspine. 2. No evidence of acute fracture. Marco A Antoine DO IMG CT PROCEDURES * CT head wo IV contrast (02/20/2020 8:46 PM EDT) Anatomical Region Laterality Modality Head, Neck Computed Tomogra phy 02/20/2020 8:46 PM EDT Narrative 02/20/2020 9:09 PM EDT PROCEDURE INFORMATION: ?Exam: CT Head Without Contrast ?Exam date and time: 02/20/2020 9:01 PM ?Age: 49 years old ?Clinical indication: Other: Weakness and light headed; Additional info: AMS -- TECHNIQUE: ?Imaging protocol: Computed tomography of the head without contrast. ?Radiation optimization: All CT scans at this facility use at least one of these ??dose optimization techniques: automated exposure control; mA and/or kV ??adjustment per patient size (includes targeted exams where dose is matched to ??clinical indication); or iterative reconstruction. ?? COMPARISON: ?CT Head or Brain w/o Contrast 08/12/2016 8:44 PM ?? FINDINGS: ?Brain: Normal. No hemorrhage. Unremarkable white matter. No mass effect. ?Ventricles: Normal. No ventriculomegaly. ?Bones/joints: ??No acute fracture. ?Sinuses: Visualized sinuses are unremarkable. No fluid levels. ?Mastoid air cells: Visualized mastoid air cells are well aerated. ?? Soft tissues: No acute changes ?? Impression: ??No acute intracranial abnormality. ?? Procedure Note Andrea Gtz - 11/25/2021 PROCEDURE INFORMATION: Exam: CT Head Without Contrast Exam date and time: 02/20/2020 9:01 PM Age: 49 years old Clinical indication: Other: Weakness and light headed; Additional info:AMS -- TECHNIQUE: Imaging protocol: Computed tomography of the head without contrast. Radiation optimization: All CT scans at this facility use at least oneof these dose optimization techniques: automated exposure control; mAand/or kV adjustment per patient size (includes targeted exams where doseis matched to clinical indication); or iterative reconstruction. COMPARISON: CT Head or Brain w/o Contrast 08/12/2016 8:44 PM FINDINGS: Brain: Normal. No hemorrhage. Unremarkable white matter. No mass effect. Ventricles: Normal. No ventriculomegaly. Bones/joints: No acute fracture. Sinuses: Visualized sinuses are unremarkable. No fluid levels. Mastoid air cells: Visualized mastoid air cells are well aerated. Soft tissues: No acute changes Impression: No acute intracranial abnormality. Marco A Antoine DO [place] CT PROCEDURES * XR knee 3 views left (02/20/2020 8:44 PM EDT) Anatomical Region Laterality Modality Lower Extremities, Knee Left Radiogra [facility] 02/20/2020 8:44 PM EDT Narrative 02/21/2020 9:22 AM EDT PROCEDURE: KNEE LEFT 3 VIEWS: 02/20/2020 CLINICAL INFORMATION: AMS --: AMS ERA 25 Emergency Department ??Room 25 COMPARISON: None. FINDINGS: Joint space narrowing and osteophytosis. No fracture or dislocation. No aggressive or erosive bony change. No joint effusion. Impression: Tricompartmental osteoarthrosis. No evidence of acute fracture or dislocation. Report Sign Date: 02/21/2020 9:20 AM, Electronically Signed By: ??Roverto Rucker MD Procedure Note Roverto Rucker MD - 11/25/2021 PROCEDURE: KNEE LEFT 3 VIEWS: 02/20/2020 CLINICAL INFORMATION: AMS --: Emergency Department Room 25 COMPARISON: None. FINDINGS: Joint space narrowing and osteophytosis. No fracture ordislocation. No aggressive or erosive bony change. No joint effusion. Impression: Tricompartmental osteoarthrosis. No evidence of acute fracture ordislocation. Report Sign Date: 02/21/2020 9:20 AM, Electronically Signed By: Roverto Rucker MD Marco A Antoine DO IMG XR PROCEDURES * XR chest 1 view (02/20/2020 8:44 PM EDT) Anatomical Region Laterality Modality Chest Radiographic Radha ging 02/20/2020 8:44 PM EDT Narrative 02/21/2020 9:21 AM EDT PROCEDURE: CHEST 1 VIEW: 02/20/2020 CLINICAL INFORMATION: AMS --: Emergency Department ??Room 25 COMPARISON: 08/12/2016 FINDINGS: No pneumothorax. ??No pleural effusion. ??No consolidative airspace opacity or suspicious mass/nodule. ?Cardiomediastinal contours are within normal limits. ?? No acute bone abnormality appreciated. Impression: No acute cardiopulmonary finding. Report Sign Date: 02/21/2020 9:19 AM, Electronically Signed By: ??Roverto Rucker MD Procedure Note Roverto Rucker MD - 11/25/2021 PROCEDURE: CHEST 1 VIEW: 02/20/2020 CLINICAL INFORMATION: AMS --: Emergency Department Room 25 COMPARISON: 08/12/2016 FINDINGS: No pneumothorax. No pleural effusion. No consolidativeairspace opacity or suspicious mass/nodule. Cardiomediastinal contours are within normal limits. No acute bone abnormality appreciated. Impression: No acute cardiopulmonary finding. Report Sign Date: 02/21/2020 9:19 AM, Electronically Signed By: Roverto Rucker MD Marco A Antoine DO IMG XR PROCEDURES * Drug screen panel, emergency (02/20/2020 8:07 PM EDT) Amphetamine Screen, Urine NEG ug/mL 02/20/2020 8:42 PM EDT [facility] Barbiturate Screen, Urine NEG ug/mL 02/20/2020 8:42 PM EDT [facility] Benzodiazepine Ur Qual NEG ug/mL 02/20/2020 8:42 PM EDT [facility] Cocaine Metabolites, Ur NEG ug/mL 02/20/2020 8:42 PM EDT [facility] Opiate Screen, Urine POS ug/mL 02/20/2020 8:42 PM EDT [facility] Cannabinoid, Ur NEG ng/mL 0 8:42 PM EDT [facility] Methadone Screen, Urine NEG ug/mL 02/20/2020 8:42 PM EDT [facility] 02/20/2020 8:07 PM EDT 02/20/2020 8:15 PM EDT Jose Barkley MD LAB URINE ORDERABL ES Performing Organization Address [facility] Co de Phone Number [facility] [address] [place] [address], [place] * hCG, urine, qualitative (02/20/2020 8:07 PM EDT) Preg Test, Ur NEGATIVE 02/20/2020 8:40 PM EDT [facility] 02/20/2020 8:07 PM EDT 02/20/2020 8:15 PM EDT Jose Barkley MD LAB URINE ORDERABL ES Performing Organization Address [facility] de Phone Number [facility] [address] [place] [address], [place] * (ABNORMAL) Urinalysis with microscopic (02/20/2020 8:07 PM EDT) RBC, Urine 2 0 - 4 /hpf 02/20/2020 8:47 PM EDT [facility] WBC, Urine 21(H) 0 - 5 /hpf 02/20/2020 8:47 PM EDT [facility] Squamous Epithelial, Urine 6 0 - 6 /hpf 02/20/2020 8:47 PM EDT [facility] Bacteria, Urine TRACE(A) /hpf 02/20/2020 8:47 PM EDT [facility] Hyaline Casts, Urine 4 0 - 4 /lpf 02/20/2020 8:47 PM EDT [facility] Color, Urine YELLOW 02/20/2020 8:47 PM EDT [facility] Clarity, Urine CLOUDY 02/20/2020 8:47 PM EDT [facility] Glucose, Urine NEGATIVE mg/dL 02/20/2020 8:47 PM T [facility] Bilirubin, Urine SMALL(A) 02/20/2020 8:47 PM T [facility] Specific [place], Urine 1.018 1.006 - 1.035 02/20/2020 8:47 PM T [facility] Blood, Urine NEGATIVE 02/20/2020 8:47 PM T [facility] pH, Urine 5.5 5.0 - 9.0 02/20/2020 8:47 PM T [facility] Protein, Urine NEGATIVE mg/dL 02/20/2020 8:47 PM T [facility] Urobilinogen, Urine 0.2 E.U./DL 02/20/2020 8:47 PM T [facility] Nitrite, Urine NEGATIVE 02/20/2020 8:47 PM T [facility] Leukocytes, Urine MODERATE(A) 02/20/2020 8:47 PM T [facility] 02/20/2020 8:07 PM EDT 02/20/2020 8:15 PM EDT Jose Barkley MD LAB URINE ORDERABL ES Performing Organization Address [facility] Phone Number [facility] [address] [place] [address], [place] * Urine culture (02/20/2020 8:04 PM EDT) Pathologist [facility] Urine Culture FINAL >100,000 CFU/ML OF MIXED SKIN [place]OM[place] 02/23/2020 7:58 AM T [facility] 02/20/2020 8:04 PM EDT 02/21/2020 12:25 AM EDT Jose Barkley MD LAB MICROBIOLOGY - GENERAL ORDERABLES Performing Organization Address [facility] Co de Phone Number [facility] [address] [place] [address], * (ABNORMAL) GFR CALCULATED (02/20/2020 6:59 PM EDT) Pathologist [facility] Department eGFR 21.6(L) 60.0 - 200.0 ML/MIN 02/20/2020 7:56 PM T [facility] 02/20/2020 6:59 PM EDT 02/20/2020 6:59 PM EDT Jose Barkley MD LAB CHG PERFORMABL ES [facility] [address] * (ABNORMAL) CBC auto differential (02/20/2020 6:59 PM EDT) Platelets 238 122 - 454 K/ul 02/20/2020 7:24 PM [facility] RBC 4.530 3.450 - 5.400 M/ul 02/20/2020 7:24 PM [facility] MCV 75.6(L) 78.2 - 101.8 fl 02/20/2020 7:24 PM [facility] MCH 24.1(L) 26.4 - 33.3 pg 02/20/2020 7:24 PM T [facility] MCHC 31.8(L) 32.5 - 35.3 g/dL 02/20/2020 7:24 PM [facility] RDW 17.5(H) 10.1 - 16.2 % 02/20/2020 7:24 PM [facility] MPV 8.3 6.4 - 10.4 fl 02/20/2020 7:24 PM [facility] Neutrophils % 39.7(L) 43.0 - 83.0 % 02/20/2020 7:24 PM [facility] Neutrophils Absolute 3.1 2.7 - 6.9 K/ul 02/20/2020 7:24 PM T [facility] Auto WBC 7.90 3.00 - 11.30 K/ul 02/20/2020 7:24 PM [facility] nRBC 0.10 02/20/2020 7:24 PM [facility] Basophils % 0.7 0.0 - 2.0 % 02/20/2020 7:24 PM [facility] Basophils Absolute 0.1 0.0 - 0.2 K/ul 02/20/2020 7:24 PM EDT [facility] Eosinophils % 2.6 0.0 - 9.0 % 02/20/2020 7:24 PM EDT [facility] Eosinophils Absolute 0.2 0.0 - 0.9 K/ul 02/20/2020 7:24 PM EDT [facility] Lymphocytes % 51.6(H) 10.0 - 42.0 % 02/20/2020 7:24 PM EDT [facility] Lymphocytes Absolute 4.1(H) 0.4 - 3.9 K/ul 02/20/2020 7:24 PM EDT [facility] Monocytes % 5.4 1.0 - 14.0 % 02/20/2020 7:24 PM EDT [facility] Monocytes Absolute 0.4 0.2 - 0.9 K/ul 02/20/2020 7:24 PM EDT [facility] Hematocrit 34.3 29.9 - 45.5 % 02/20/2020 7:24 PM EDT [facility] Hemoglobin 10.9 10.0 - 16.0 gm/dl 02/20/2020 7:24 PM EDT [facility] 02/20/2020 6:59 PM EDT 02/20/2020 7:13 PM EDT Jose Barkley MD LAB BLOOD ORDERABL ES Performing Organization Address [facility] Co de Phone Number [facility] [address] * APTT (02/20/2020 6:59 PM EDT) aPTT 26 22 - 30 sec 02/20/2020 8:00 PM EDT [facility] 02/20/2020 6:59 PM EDT 02/20/2020 7:13 PM EDT Jose Barkley MD LAB BLOOD ORDERABL ES Performing Organization Address [facility] Co de Phone Number [facility] [address] * Hepatic function panel (02/20/2020 6:59 PM EDT) Bilirubin, Direct 0.10 0.00 - 0.20 MG/DL 02/20/2020 7:56 PM EDT [facility] Albumin 3.5 3.4 - 5.0 g/dL 02/20/2020 7:56 PM EDT [facility] Alkaline Phosphatase 81 45 - 117 U/L 02/20/2020 7:56 PM EDT [facility] Total Bilirubin 0.20 0.00 - 1.00 MG/DL 02/20/2020 7:56 PM EDT [facility] ALT (SGPT) 26 12 - 78 U/L 02/20/2020 7:56 PM EDT [facility] Total Protein 7.3 6.4 - 8.4 g/dL 02/20/2020 7:56 PM EDT [facility] AST 19 15 - 37 U/L 02/20/2020 7:56 PM EDT [facility] 02/20/2020 6:59 PM EDT 02/20/2020 7:13 PM EDT Jose Barkley MD LAB BLOOD ORDERABL ES Performing Organization Address [facility] Phone Number [facility] [address] [place] [address], * Ammonia (02/20/2020 6:59 PM EDT) Ammonia 20 11 - 32 umol/L 02/20/2020 7:43 PM EDT [facility] 02/20/2020 6:59 PM EDT 02/20/2020 7:13 PM EDT Jose Barkley MD LAB BLOOD ORDERABL ES Performing Organization Address [facility] de Phone Number [facility] [address] [place] [address], [place] * TSH (02/20/2020 6:59 PM EDT) TSH 2.680 0.358 - 3.740 ulU/ml 02/20/2020 7:56 PM EDT [facility] 02/20/2020 6:59 PM EDT 02/20/2020 7:13 PM EDT Jose Barkley MD LAB BLOOD ORDERABL ES Performing Organization Address [facility] Phone Number [facility] [address] [place] [address], [place] * T4 (02/20/2020 6:59 PM EDT) T4, Total 7.6 4.5 - 12.1 ug/dL 02/20/2020 7:56 PM EDT [facility] 02/20/2020 6:59 PM EDT 02/20/2020 7:13 PM EDT Jose Barkley MD LAB BLOOD ORDERABL ES Performing Organization Address [facility] Phone Number [facility] [address] [place] [address], [place] * Protime-INR (02/20/2020 6:59 PM EDT) Protime 10.8 9.3 - 11.5 sec 02/20/2020 8:00 PM EDT [facility] INR 1.04 0.89 - 1.11 02/20/2020 8:00 PM EDT [facility] 02/20/2020 6:59 PM EDT 02/20/2020 7:13 PM EDT Jose Barkley MD LAB BLOOD ORDERABL ES Performing Organization Address [facility] Phone Number [facility] [address] [place] [address], [place] * Phosphorus (02/20/2020 6:59 PM EDT) Phosphorus 4.9 2.5 - 4.9 mg/dL 02/20/2020 7:56 PM EDT [facility] 02/20/2020 6:59 PM EDT 02/20/2020 7:13 PM EDT Jose Barkley MD LAB BLOOD ORDERABL ES Performing Organization Address [facility] de Phone Number [facility] [address] [place] [address], [place] * Magnesium (02/20/2020 6:59 PM EDT) Magnesium 2.4 1.7 - 2.4 MG/DL 02/20/2020 7:56 PM EDT [facility] 02/20/2020 6:59 PM EDT 02/20/2020 7:13 PM EDT Jose Barkley MD LAB BLOOD ORDERABL ES Performing Organization Address [facility] Phone Number [facility] [address] [place] [address], * Lipase (02/20/2020 6:59 PM EDT) Lipase 253 73 - 393 U/L 02/20/2020 7:56 PM EDT [facility] 02/20/2020 6:59 PM EDT 02/20/2020 7:13 PM EDT Jose Barkley MD LAB BLOOD ORDERABL ES Performing Organization Address [facility] Phone Number [facility] [address] [place] [address], [place] * Troponin I (02/20/2020 6:59 PM EDT) Troponin, HS <0.015 0.000 - 0.045 ng/mL 02/20/2020 7:56 PM EDT [facility] 02/20/2020 6:59 PM EDT 02/20/2020 7:13 PM EDT Jose Barkley MD LAB BLOOD ORDERABL ES Performing Organization Address [facility] Phone Number [facility] [address] [place] [address], * (ABNORMAL) Basic metabolic panel (02/20/2020 6:59 PM EDT) Calcium 8.9 8.5 - 10.1 mg/dL 02/20/2020 7:56 PM EDT [facility] Chloride 109(H) 98 - 107 mmol/L 02/20/2020 7:56 PM EDT [facility] CO2 27 21 - 32 mmol/L 02/20/2020 7:56 PM EDT [facility] Creatinine 2.40(H) 0.60 - 1.30 MG/DL 02/20/2020 7:56 PM EDT [facility] Potassium 4.8 3.6 - 5.2 mmol/L 02/20/2020 7:56 PM EDT [facility] Sodium 140 133 - 144 mmol/L 02/20/2020 7:56 PM EDT [facility] BUN 29(H) 7 - 18 MG/DL 02/20/2020 7:56 PM EDT [facility] Glucose 109 70 - 110 MG/DL 02/20/2020 7:56 PM EDT [facility] 02/20/2020 6:59 PM EDT 02/20/2020 7:13 PM EDT Jose Barkley MD LAB BLOOD ORDERABL ES Performing Organization Address [facility]/ZIP Co de Phone Number [facility] [address] * B-type natriuretic peptide (02/20/2020 6:59 PM EDT) BNP 26.8 0.0 - 100.0 pg/mL 02/20/2020 8:12 PM EDT [facility] 02/20/2020 6:59 PM EDT 02/20/2020 7:13 PM EDT Jose Barkley MD LAB BLOOD ORDERABL ES Performing Organization Address [facility] Co de Phone Number [facility] [address] documented in this encounter Visit Diagnoses Diagnosis Acute kidney failure, unspecified Urinary tract infection, site not specified Type 2 diabetes mellitus without complications Essential (primary) hypertension Unspecified essential hypertension longterm (current) use of oral hypoglycemic drugs Other care home (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 documented in this encounter Care Teams Structural Steel Detailer Relationship Specialty Start Date End Date Ricardo Contreras MD [address] [place] [address] PCP - General documented as of this encounter
--- OUTSIDE RECORDS SUMMARY | 2024-08-18 13:15 | XMS_ITS | Encounter Summary ---
Author Organization [facility] nter Address [address] [place], [place] [id number] [place] [address] Care Team Providers Care Second Ride Fare Collector Name Role Phone Ricardo Contreras MD Primary Care Provider + Encounter Details Date Type Department Care Team (Latest Contact Info) Description 06/25/2019 7:34 AM EDT - 06/25/2019 11:59 PM EDT Hospital Encounter [facility] CONVERSION OUTPATIENT [address] [place] [address] Ubaldo Yuen, DO [address] [place] [address] Other chronic pain; Postlaminectomy syndrome, not elsewhere classified; Other spondylosis, lumbar region; Cervicalgia; Encounter for therapeutic drug level monitoring; intermediate designer (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
--- OUTSIDE RECORDS SUMMARY | 2024-08-18 13:15 | XMS_ITS | Encounter Summary ---
Author Organization [facility] nter Address [address] [place] [address] [place] [address] Care Team Providers Care Divorce Attorney Name Role Phone Ricardo Contreras MD Primary Care Provider + Encounter Details Date Type Department Care Team (Latest Contact Info) Description 01/16/2019 11:15 AM EDT - 01/16/2019 11:59 PM EDT Hospital Encounter [facility] CONVERSION OUTPATIENT [address] [place] [phone] Vahe Burrell DO [address] [place] [phone] Benign neoplasm of parotid gland Discharge Disposition: Home or Self Care Social [...] as of this encounter Visit Diagnoses Diagnosis 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
--- OUTSIDE RECORDS SUMMARY | 2024-08-18 13:15 | XMS_ITS | Encounter Summary ---
Author Organization [facility] nter Address [address] [place], [place] [id number] [place] [id number] Care Team Providers Care Roof Mechanic Name Role Phone Ricardo Contreras MD Primary Care Provider + Encounter Details Date Type Department Care Team (Latest Contact Info) Description 04/23/2019 8:57 AM EDT - 04/23/2019 11:59 PM EDT Hospital Encounter [facility] CONVERSION OUTPATIENT [address] [place] [address] Ubaldo Yuen, DO [address] [place] [address] Postlaminectomy syndrome, not elsewhere classified; Other spondylosis, lumbar region; Cervicalgia Discharge Disposition: Home or Self [...] elsewhere classified Other spondylosis, lumbar region Cervicalgia documented in this encounter Care Teams Roof Mechanic Relationship Specialty Start Date End Date Ricardo Contreras MD [address] [place] [address] PCP - General documented as of this encounter
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
--- OUTSIDE RECORDS SUMMARY | 2024-08-18 13:15 | XMS_ITS | Encounter Summary ---
Author Organization [facility] nter Address [address] [place], [place] [id number] [place] [address] Care Team Providers Care Cheesemaker Name Role Phone Ricardo Contreras MD Primary Care Provider + Encounter Details Date Type Department Care Team (Latest Contact Info) Description 01/07/2020 8:18 AM EDT - 01/07/2020 11:59 PM EDT Hospital Encounter [facility] CONVERSION OUTPATIENT [address] [place] [address] Ubaldo Yuen, DO [address] [place] [address] Postlaminectomy syndrome, not elsewhere classified; Other spondylosis, [...] region documented in this encounter Care Teams Cheesemaker Relationship Specialty Start Date End Date Ricardo Contreras MD [address] [place] [address] PCP - General documented as of this encounter
--- OUTSIDE RECORDS SUMMARY | 2024-08-18 13:15 | XMS_ITS | Encounter Summary ---
Author Organization [facility] nter Address [address] [place], [place] [address] [place] [address] Care Team Providers Care Truck Loader Name Role Phone Ricardo Contreras MD Primary Care Provider + Encounter Details Date Type Department Care Team (Latest Contact Info) Description 12/19/2018 10:31 AM EDT - 12/19/2018 11:59 PM EDT Hospital Encounter [facility] CONVERSION OUTPATIENT [address] [place] [address] Vahe Burrell DO [address] [place] [phone] Neoplasm of uncertain behavior of the parotid [...] glands documented in this encounter Care Teams Truck Loader Relationship Specialty Start Date End Date Ricardo Contreras MD [address] [place] [address] PCP - General documented as of this encounter
--- OUTSIDE RECORDS SUMMARY | 2024-08-18 13:15 | XMS_ITS | Encounter Summary ---
Author Organization [facility] nter Address [address] [place], [place] [address] [place], [place] [address] Care Team Providers Care Jig Mill Operator Name Role Phone Ricardo Contreras MD Primary Care Provider + Encounter Details Date Type Department Care Team (Late st Contact Info) Description 01/16/2019 8:27 AM EDT - 01/16/2019 11:59 PM EDT Hospital Encounter [facility] CONVERSION OUTPATIENT [address] [place] [address] Ubaldo Yuen, DO [address] [place] [address] Social History Tobacco Use Types Packs/Day Years [...] on filedocumented in this encounter Care Teams Jig Mill Operator Relationship Specialty Start Date End Date Ricardo Contreras MD [address] [place] [address] PCP - General documented as of this encounter
--- OUTSIDE RECORDS SUMMARY | 2024-08-18 13:15 | XMS_ITS | Encounter Summary ---
Author Organization [facility] nter Address [address] [address] [place] [address] Care Team Providers Care Development Executive Name Role Phone Ricardo Contreras MD Primary Care Provider + Encounter Details Date Type Department Care Team (Late st Contact Info) Description 08/20/2019 12:01 AM EST - 08/20/2019 11:59 PM EST Hospital Encounter [facility] CONVERSION OUTPATIENT [address] [place] [address] Ricardo Contreras MD [address] [place] [address] Social History Tobacco Use Types Packs/Day Years [...] on filedocumented in this encounter Care Teams Development Executive Relationship Specialty Start Date End Date Ricardo Contreras MD [address] [place], [place] [phone] PCP - General documented as of this encounter
--- OUTSIDE RECORDS SUMMARY | 2024-08-18 13:15 | XMS_ITS | Encounter Summary ---
Author Organization [facility] nter Address [address] [place], [place] [address] [place], [place] [phone] Care Team Providers Care Electromedical Service Engineer Name Role Phone Ricardo Contreras MD Primary Care Provider + Encounter Details Date Type Department Care Team (Latest Contact Info) Description 09/25/2019 10:19 AM EST - 09/25/2019 11:59 PM EST Hospital Encounter [facility] CONVERSION OUTPATIENT [address] [place] [id number] Ferny Mims MD [address] [place] [phone] Spondylosis without myelopathy or radiculopathy, cervical region; Osteophyte, vertebrae; Arthrodesis status Discharge Disposition: Home or Self Care [...] Name Priority Date/Time Associated Diagnosis Comments XR CERVICAL SPINE COMP W FLEX & EXT Routine 09/25/2019 10:23 AM EST documented in this encounter Results * XR cervical spine comp w flex & ext (09/25/2019 10:23 AM EST) Anatomical Region Laterality Modality Spine, C-spine Radiographic Radha ging 09/25/2019 10:2 3 AM EST Narrative 09/25/2019 5:47 PM EST PROCEDURE: SPINE CERVICAL COMP W/FLEX+EXT: 09/25/2019 CLINICAL INFORMATION: Cervicalgia COMPARISON: None. There is anterior fusion at C4-C5. Large anterior disk osteophyte complexes are seen at C2-C3, C3-C4, C5-C6 and C6-C7. The C6 levels and below are obscured by the shoulders and cannot be assessed. Impression: 1. Limited study. 2. Anterior fusion. 3. Large anterior bridging osteophytes with degenerative changes present. Report Sign Date: 09/25/2019 5:45 PM, Electronically Signed By: ??Sang George MD Procedure Note Sang George MD - 11/25/2021 PROCEDURE: SPINE CERVICAL COMP W/FLEX+EXT: 09/25/2019 CLINICAL INFORMATION: Cervicalgia COMPARISON: None. There is anterior fusion at C4-C5. Large anterior disk osteophytecomplexes are seen at C2-C3, C3-C4, C5-C6 and C6-C7. The C6 levels andbelow are obscured by the shoulders and cannot be assessed. Impression: 1. Limited study. 2. Anterior fusion. 3. Large anterior bridging osteophytes with degenerative changes present. Report Sign Date: 09/25/2019 5:45 PM, Electronically Signed By: Sang George MD Ferny Mims MD IMG XR PROCEDURES documented in this encounter Visit Diagnoses Diagnosis Spondylosis without myelopathy or radiculopathy, cervical region Osteophyte, vertebrae Arthrodesis status documented in this encounter Care Teams Electromedical Service Engineer Relationship Specialty Start Date End Date Ricardo Contreras MD [address] [place] [address] PCP - General documented as of this encounter
--- OUTSIDE RECORDS SUMMARY | 2024-08-18 13:15 | XMS_ITS | Encounter Summary ---
Author Organization [facility] nter Address [address] [place], [place] [id number] [place] [address] Care Team Providers Care Assistant Librarian Name Role Phone Ricardo Contreras MD Primary Care Provider + Encounter Details Date Type Department Care Team (Latest Contact Info) Description 08/28/2019 2:22 PM EST - 08/28/2019 11:59 PM EST Hospital Encounter [facility] CONVERSION OUTPATIENT [address] [place] [address] Ubaldo Yuen, DO [address] [place] [address] Postlaminectomy syndrome, not elsewhere classified; Other spondylosis, [...] region documented in this encounter Care Teams Assistant Librarian Relationship Specialty Start Date End Date Ricardo Contreras MD [address] [place] [address] PCP - General documented as of this encounter
--- OUTSIDE RECORDS SUMMARY | 2024-08-18 13:15 | XMS_ITS | Encounter Summary ---
Author Organization [facility] nter Address [address] [place] [address] [place] [address] Care Team Providers Care Neurosurgery Research Director Name Role Phone Ricardo Contreras MD Primary Care Provider + Encounter Details Date Type Department Care Team (Latest Contact Info) Description 11/05/2019 7:52 AM EST - 11/05/2019 11:59 PM EST Hospital Encounter [facility] CONVERSION OUTPATIENT [address] [place] [address] Ubaldo Yuen, DO [address] [place] [address] Postlaminectomy syndrome, not elsewhere classified; Spondylosis without myelopathy or radiculopathy, lumbosacral region; Cervicalgia; Myalgia, unspecified site Discharge Disposition: Home or [...] without myelopathy or radiculopathy, lumbosacral region Cervicalgia Myalgia, unspecified site documented in this encounter Care Teams Neurosurgery Research Director Relationship Specialty Start Date End Date Ricardo Contreras MD [address] [place] [address] PCP - General documented as of this encounter
--- OUTSIDE RECORDS SUMMARY | 2024-08-18 13:15 | XMS_ITS | Encounter Summary ---
Author Organization [facility] nter Address [address] [place] [address] [place] [address] Care Team Providers Care Cutter Machine Name Role Phone Ricardo Contreras MD Primary Care Provider + Encounter Details Date Type Department Care Team (Latest Contact Info) Description 07/30/2019 7:40 AM EST - 07/30/2019 11:59 PM EST Hospital Encounter [facility] CONVERSION OUTPATIENT [address] [place] [address] Ubaldo Yuen, DO [address] [place] [address] Other spondylosis with radiculopathy, lumbar region; Spondylosis without myelopathy or radiculopathy, lumbosacral region; [...] of this encounter Visit Diagnoses Diagnosis Other spondylosis with radiculopathy, lumbar region Spondylosis without myelopathy or radiculopathy, lumbosacral region Cervicalgia documented in this encounter Care Teams Cutter Machine Relationship Specialty Start Date End Date Ricardo Contreras MD [address] [place] [address] PCP - General documented as of this encounter
--- OUTSIDE RECORDS SUMMARY | 2024-08-18 13:15 | XMS_ITS | Encounter Summary ---
Author Organization [facility] nter Address [address] [place], [place] [address] [place], [place] [phone] Care Team Providers Care Electrologist Name Role Phone Ricardo Contreras MD Primary Care Provider + Encounter Details Date Type Department Care Team (Late st Contact Info) Description 12/11/2018 12:01 AM EDT - 12/11/2018 11:59 PM EDT Hospital Encounter [facility] CONVERSION OUTPATIENT [address] [place] [address] Vahe Burrell, DO [address] [place] [phone] Social History Tobacco Use Types Packs/Day Years [...] SOFT TISSUE NECK W IV CONTRAST Routine 12/11/2018 3:32 PM EDT documented in this encounter Results * CT soft tissue neck w IV contrast (12/11/2018 3:32 PM EDT) Anatomical Region Laterality Modality Head, Neck Computed Tomogra phy 12/11/2018 3:32 PM EDT Narrative 12/13/2018 8:59 AM EDT PROCEDURE: CT NECK SOFT TISSUE W/CONT: 12/11/2018 CLINICAL INFORMATION: 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 ?? There is emphysema partially seen in the lung apices. There are few tiny nodules present in the right parotid gland nonspecific measuring up to 7 mm. There is cervical lymphadenopathy present. At the palpable area of concern in the left cervical region, there is a mass measuring 2.3 cm that appears to reside within the left parotid gland. Aerodigestive tract is grossly patent. Bilateral submandibular glands appear grossly intact. Thyroid gland appears intact. Along the right sternal margin anteriorly, there is a superficial 1.7 cm nodular fluid collection. Postoperative changes are seen in the spine. Impression: 1. There is a 2.3 cm mass which appears to involve the left parotid gland corresponding to the palpable area of concern. This is worrisome for malignancy or metastatic adenopathy. PET/CT scan recommended. 2. Indeterminate cervical lymphadenopathy present. ?? 3. A few tiny nodules are present in the right parotid gland up to 7.5 mm, nonspecific. These can also be assessed at time of ??PET/CT scan imaging. 4. Small superficial fluid density along the skin and dermal layer of the right anterior chest wall at the sternoclavicular joint. This suggests a small sebaceous cyst or possible superficial abscess at the skin level. Correlate clinically. 5. Remainder as above. Report Sign Date: 12/13/2018 8:57 AM, Electronically Signed By: ??Sang George Procedure Note Sang George MD - 11/25/2021 PROCEDURE: CT NECK SOFT TISSUE W/CONT: 12/11/2018 CLINICAL INFORMATION: Neoplasm of uncertain behavior of the parotidsalivary gland COMPARISON: None. There is emphysema partially seen in the lung apices. There are few tinynodules present in the right parotid gland nonspecific measuring up to 7mm. There is cervical lymphadenopathy present. At the palpable area of concern in the left cervical region, there is amass measuring 2.3 cm that appears to reside within the left parotidgland. Aerodigestive tract is grossly patent. Bilateral submandibular glandsappear grossly intact. Thyroid gland appears intact. Along the rightsternal margin anteriorly, there is a superficial 1.7 cm nodular fluidcollection. Postoperative changes are seen in the spine. Impression: 1. There is a 2.3 cm mass which appears to involve the left parotid glandcorresponding to the palpable area of concern. This is worrisome formalignancy or metastatic adenopathy. PET/CT scan recommended. 2. Indeterminate cervical lymphadenopathy present. 3. A few tiny nodules are present in the right parotid gland up to 7.5mm, nonspecific. These can also be assessed at time of PET/CT scan imaging. 4. Small superficial fluid density along the skin and dermal layer of theright anterior chest wall at the sternoclavicular joint. This suggests asmall sebaceous cyst or possible superficial abscess at the skin level.Correlate clinically. 5. Remainder as above. Report Sign Date: 12/13/2018 8:57 AM, Electronically Signed By: Sang George Vahe Burrell DO IMG CT PROCEDURES documented in this encounter Visit Diagnoses Not on filedocumented in this encounter Care Teams Electrologist Relationship Specialty Start Date End Date Ricardo Contreras MD [address] [place] [address] PCP - General documented as of this encounter
--- OUTSIDE RECORDS SUMMARY | 2024-08-18 13:15 | XMS_ITS | Encounter Summary ---
Author Organization [facility] nter Address [address] [place], [place] [id number] [place] [address] Care Team Providers Care Aircraft Instrument Repairer Name Role Phone Ricardo Contreras MD Primary Care Provider + Encounter Details Date Type Department Care Team (Latest Contact Info) Description 05/14/2019 7:25 AM EDT - 05/14/2019 11:59 PM EDT Hospital Encounter [facility] CONVERSION OUTPATIENT [address] [place] [address] Ubaldo Yuen, DO [address] [place] [address] Postlaminectomy syndrome, not elsewhere classified; Other spondylosis, [...] Cervicalgia documented in this encounter Care Teams Aircraft Instrument Repairer Relationship Specialty Start Date End Date Ricardo Contreras MD [address] [place] [address] PCP - General documented as of this encounter
--- OUTSIDE RECORDS SUMMARY | 2024-08-18 13:15 | XMS_ITS | Encounter Summary ---
Author Organization [facility] nter Address [address] [place], [place] [phone] [place], [place] [phone] Care Team Providers Care Executive Sales Assistant Name Role Phone Ricardo Contreras MD Primary Care Provider + Encounter Details Date Type Department Care Team (Late st Contact Info) Description 10/17/2018 7:31 AM EST - 10/17/2018 11:59 PM EST Hospital Encounter [facility] CONVERSION OUTPATIENT [address] [place] [address] Ubaldo Yuen, DO [address] [place] [address] Social History Tobacco Use Types Packs/Day Years [...] on filedocumented in this encounter Care Teams Executive Sales Assistant Relationship Specialty Start Date End Date Ricardo Contreras MD [address] [place] [address] PCP - General documented as of this encounter
--- OUTSIDE RECORDS SUMMARY | 2024-08-18 13:15 | XMS_ITS | Encounter Summary ---
Author Organization [facility] nter Address [address] [place], [place] [address] [place], [place] [phone] Care Team Providers Care Retail Training Manager Name Role Phone Ricardo Contreras MD Primary Care Provider + Encounter Details Date Type Department Care Team (Latest Contact Info) Description 06/11/2019 2:39 PM EDT - 06/11/2019 11:59 PM EDT Hospital Encounter [facility] CONVERSION OUTPATIENT [address] [place] [address] Dante Arec MD [address] [place] [phone] Pain in right shoulder; Pain in left shoulder Discharge Disposition: Home or Self Care Social [...] as of this encounter Visit Diagnoses Diagnosis Pain in right shoulder Pain in left shoulder documented in this encounter Care Teams Retail Training Manager Relationship Specialty Start Date End Date Ricardo Contreras MD [address] [place] [address] PCP - General documented as of this encounter
--- OUTSIDE RECORDS SUMMARY | 2024-08-18 13:15 | XMS_ITS | Encounter Summary ---
Author Organization [facility] nter Address [address] [place] [address] [place] [id number] Care Team Providers Care Mortgage Banker Name Role Phone Ricardo Contreras MD Primary Care Provider + Encounter Details Date Type Department Care Team (Late st Contact Info) Description 02/23/2020 12:01 AM EDT - 02/23/2020 11:59 PM EDT Hospital Encounter [facility] CONVERSION OUTPATIENT [address] [place] [address] Ricarod Contreras MD [address] [place] [address] Social History Tobacco Use Types Packs/Day Years [...] on filedocumented in this encounter Care Teams Mortgage Banker Relationship Specialty Start Date End Date Ricardo Contreras MD [address] [place] [address] PCP - General documented as of this encounter
--- NOTE | 2024-08-18 13:16 | MM_ITS ---
PROCEDURE INFORMATION: Exam: MG Left Screening 3D Mammography Exam date and time: 08/18/2024 1:02 PM Age: 53 years old Clinical indication: Screening examination . History of right breast cancer TECHNIQUE: Imaging protocol: Left Screening tomosynthesis and 2D mammography including computer-aided detection (CAD) when performed. COMPARISON: 1. MG MA MAMMO DIAG LT W/JORGE A 04/25/2023 8:08 AM 2. MG MA MAMMO DIAG LT W/JORGE A 11/21/2021 8:06 AM FINDINGS: MAMMOGRAPHY: Breast composition: There are scattered areas of fibroglandular density. Mass: None. Architectural distortion: None. Calcifications: No suspicious calcifications. Asymmetric density: None. Skin thickening: None. Axillary adenopathy: None. Implants: Subpectoral saline breast implant is present. The patient is status post right mastectomy IMPRESSION: No mammographic evidence of malignancy. Annual screening is recommended unless otherwise clinically indicated. ASSESSMENT: BI-RADS Category 1: Negative.
--- OUTSIDE RECORDS SUMMARY | 2024-08-18 13:16 | XMS_ITS | Encounter Summary ---
Author Organization [facility] nter Address [address] [place], [place] [id number] [place], [place] [id number] Care Team Providers Care Box Builder Name Role Phone Ricardo Contreras MD Primary Care Provider + Encounter Details Date Type Department Care Team (Late st Contact Info) Description 05/08/2018 4:33 PM EDT - 05/08/2018 11:59 PM EDT Hospital Encounter [facility] CONVERSION OUTPATIENT [address] [place] [address] Ubaldo Yuen, DO [address] [place] [address] Social History Tobacco Use Types Packs/Day Years [...] Name Priority Date/Time Associated Diagnosis Comments SCANNED LAB RESULT 05/08/2018 documented in this encounter Results * SCANNED LAB RESULT (05/08/2018) Narrative 05/08/2018 Ordered by an unspecified provider. Default Authenticator Peter LAB BLOOD ORDE MARIELLA documented in this encounter Visit Diagnoses Not on filedocumented in this encounter Care Teams Box Builder Relationship Specialty Start Date End Date Ricardo Contreras MD [address] [place] [address] PCP - General documented as of this encounter
--- OUTSIDE RECORDS SUMMARY | 2024-08-18 13:16 | XMS_ITS | Encounter Summary ---
Author Organization [facility] nter Address [address] [place], [place] [address] [place], [place] [id number] Care Team Providers Care Bookkeeping Clerks Supervisor Name Role Phone Ricardo Contreras MD Primary Care Provider + Encounter Details Date Type Department Care Team (Latest Contact Info) Description 04/09/2018 8:52 AM EDT - 04/09/2018 11:59 PM EDT Hospital Encounter [facility] CONVERSION OUTPATIENT [address] [place] [address] Emily Sprague NP [address] [place] [id number] Obesity, unspecified; Body mass index (BMI) 39.0-39.9, adult; Dietary counseling and surveillance Discharge Disposition: Home or Self Care Social [...] as of this encounter Visit Diagnoses Diagnosis Obesity, unspecified Body mass index (BMI) 39.0-39.9, adult Dietary counseling and surveillance documented in this encounter Care Teams Bookkeeping Clerks Supervisor Relationship Specialty Start Date End Date Ricardo Contreras MD [address] [place] [address] PCP - General documented as of this encounter
--- OUTSIDE RECORDS SUMMARY | 2024-08-18 13:16 | XMS_ITS | Encounter Summary ---
Author Organization [facility] nter Address [address] [place], [place] [address] [place] [address] Care Team Providers Care Sports Equipment Repairer Name Role Phone Ricardo Contreras MD Primary Care Provider + Encounter Details Date Type Department Care Team (Late st Contact Info) Description 10/25/2017 10:48 AM EST - 10/25/2017 11:59 PM EST Hospital Encounter [facility] CONVERSION OUTPATIENT [address] [place] [address] Ubaldo Yuen, DO [address] [place] [address] Social History Tobacco Use Types Packs/Day Years [...] Date/Time Associated Diagnosis Comments SCANNED LAB RESULT 10/25/2017 documented in this encounter Results * SCANNED LAB RESULT (10/25/2017) Narrative 10/25/2017 Ordered by an unspecified provider. Default Authenticator Peter LAB BLOOD ORDFlorence WOLFF documented in this encounter Visit Diagnoses Not on filedocumented in this encounter Care Teams Sports Equipment Repairer Relationship Specialty Start Date End Date Ricardo Contreras MD [address] [place] [address] PCP - General documented as of this encounter
--- OUTSIDE RECORDS SUMMARY | 2024-08-18 13:16 | XMS_ITS | Encounter Summary ---
Author Organization [facility] nter Address [address] [place], [place] [id number] [place] [address] Care Team Providers Care Knit Goods Washer Name Role Phone Ricardo Contreras MD Primary Care Provider + Encounter Details Date Type Department Care Team (Late st Contact Info) Description 08/24/2017 10:00 AM EST - 08/24/2017 11:59 PM EST Hospital Encounter [facility] CONVERSION OUTPATIENT [address] [place] [address] Ubaldo Yuen, DO [address] [place] [address] Social History Tobacco Use Types Packs/Day Years [...] on filedocumented in this encounter Care Teams Knit Goods Washer Relationship Specialty Start Date End Date Ricardo Contreras MD [address] [place] [address] PCP - General documented as of this encounter
--- OUTSIDE RECORDS SUMMARY | 2024-08-18 13:16 | XMS_ITS | Encounter Summary ---
Author Organization [facility] nter Address [address], [place] [address] [place] [address] Care Team Providers Care Sales Intern Name Role Phone Ricardo Contreras MD Primary Care Provider + Encounter Details Date Type Department Care Team (Late st Contact Info) Description 10/25/2017 8:43 AM EST - 10/25/2017 11:59 PM EST Hospital Encounter [facility] CONVERSION OUTPATIENT [address] [place] [address] Ubaldo uYen, DO [address] [place] [address] Social History Tobacco Use Types Packs/Day Years [...] filedocumented in this encounter Care Teams Sales Intern Relationship Specialty Start Date End Date Ricardo Contreras MD [address] [place] [address] PCP - General documented as of this encounter
--- OUTSIDE RECORDS SUMMARY | 2024-08-18 13:16 | XMS_ITS | Encounter Summary ---
Author Organization [facility] nter Address [address] [place], [place] [address] [place], [place] [phone] Care Team Providers Care Sketch Liner Name Role Phone Ricardo Contreras MD Primary Care Provider + Encounter Details Date Type Department Care Team (Latest Contact Info) Description 03/08/2018 5:31 PM EDT - 03/08/2018 11:59 PM EDT Hospital Encounter [facility] CONVERSION OUTPATIENT [address] [place] [address] Emily Sanchez, PhD [address] [place] [phone] Encounter for other preprocedural examination; Obesity, unspecified; Body mass index (BMI) 39.0-39.9, adult Discharge Disposition: Home or Self Care [...] encounter Visit Diagnoses Diagnosis Encounter for other preprocedural examination Obesity, unspecified Body mass index (BMI) 39.0-39.9, adult documented in this encounter Care Teams Sketch Liner Relationship Specialty Start Date End Date Ricardo Contreras MD [address] [place] [address] PCP - General documented as of this encounter
--- OUTSIDE RECORDS SUMMARY | 2024-08-18 13:16 | XMS_ITS | Encounter Summary ---
Author Organization [facility] nter Address [address] [place], [place] [id number] [place], [place] [address] Care Team Providers Care Crime Prevention Police Officer Name Role Phone Ricardo Contreras MD Primary Care Provider + Encounter Details Date Type Department Care Team (Late st Contact Info) Description 03/26/2018 10:45 AM EDT - 03/26/2018 11:59 PM EDT Hospital Encounter [facility] CONVERSION OUTPATIENT [address] [place] [address] Ubaldo Yuen, DO [address] [place] [address] Social History Tobacco Use Types Packs/Day Years [...] on filedocumented in this encounter Care Teams Crime Prevention Police Officer Relationship Specialty Start Date End Date Ricardo Contreras MD [address] [place] [address] PCP - General documented as of this encounter
--- OUTSIDE RECORDS SUMMARY | 2024-08-18 13:16 | XMS_ITS | Encounter Summary ---
Author Organization [facility] nter Address [address] [place] [address] [place] [id number] Care Team Providers Care High School Admissions Representative Name Role Phone Ricardo Contreras MD Primary Care Provider + Encounter Details Date Type Department Care Team (Late st Contact Info) Description 08/10/2017 12:01 AM EST - 08/31/2017 3:27 PM EST Hospital Encounter [facility]C CONVERSION OUTPATIENT [address] [place] [address] Dante Arce MD [address] [place] [phone] Social History Tobacco Use Types Packs/Day Years [...] on filedocumented in this encounter Care Teams High School Admissions Representative Relationship Specialty Start Date End Date Ricardo Contreras MD [address] [place] [address] PCP - General documented as of this encounter
--- OUTSIDE RECORDS SUMMARY | 2024-08-18 13:16 | XMS_ITS | Encounter Summary ---
Author Organization [facility] nter Address [address] [place], [place] [address] [place], [place] [address] Care Team Providers Care Packaging Operator Name Role Phone Ricardo Contreras MD Primary Care Provider + Encounter Details Date Type Department Care Team (Late st Contact Info) Description 01/23/2018 9:39 AM EDT - 01/23/2018 11:59 PM EDT Hospital Encounter [facility]C CONVERSION OUTPATIENT [address] [place] [address] Ubaldo Yuen, DO [address] [place] [address] Social History Tobacco Use Types Packs/Day Years [...] on filedocumented in this encounter Care Teams Packaging Operator Relationship Specialty Start Date End Date Ricardo Contreras MD [address] [place] [address] PCP - General documented as of this encounter
--- OUTSIDE RECORDS SUMMARY | 2024-08-18 13:16 | XMS_ITS | Data Portability ---
Author Organization [facility] Address [address] [place] [address] Care Team Providers Care Boom Worker Name Role Phone MICHELLE SALDIVAR Primary Care Provider [phone] Assessment Encounter Date Assessment Date Assessment LastModified by Organization Details LastModified Time 02/01/2024 02/01/2024 Interval history: Ms. Martinez is a 53-year-old female with multiple pain complaints. She has neck as well as low back pain. She does have an ACDF of C4-5. She has limited range of motion of her cervical spine particular to the left. We have discussed referring her to physical therapy for evaluation and treatment. Her primary complaint is of back pain is axial in nature. Symptoms are aggravated by standing as well as walking, bending and twisting relieved by sitting. MRIs demonstrated multilevel facet arthropathy particularly at at the lower levels. She has pain to palpation lower aspect of her lumbar spine around L4 and L5 particularly on the left. There is reproduction of much the pain for which she complains with facet loading and rotation. I discussed a diagnostic medial branch block of bilateral L3-5 for which she is in agreement. For multiple complaints we do provide her with a combination of Percocet as well as gabapentin which she typically finds beneficial to a degree. She denies any adverse side effects. History: Ms. Martinez is a diabetic female who has a complaint of left arm pain follows roughly a C6 dermatome as well as low back pain with radicular symptoms predominate in the left lower extremity but to a lesser extent intermittent symptoms in the right lower extremity. She does have a history of ACDF of C4-5. We provide her with Percocet and gabapentin which she finds beneficial without any adverse side effects. Pertinent medical history: DM, Breast Cancer Imagin08/17/2022 CT Lumbar - Impression: degenerative changes putting facet arthropathy but no overt stenosis noted. 02/20/2020 CT Spine Cervical w/o Contrast FINDINGS: Vertebrae: Anterior fusion noted C4-[id number] enceofcomplicati on. 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 There is no evidence of acute fracture. The facet joints are normal. Discs/Spinal canal/Neural foramina: No significant disc protrusion. No severe spinal canal stenosis. No significant neural foraminal narrowing. Soft tissues: There are no soft tissue masses or fluid collections. Lungs: Lung apices are normal. IMPRESSION : 1. 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 2. No evidence of acute fracture. Injections : 08-07-2023 Lumbar Bilateral TPI 80% pain relief for 3 weeks. Surgical HX : 05/2017 patient had RTC shoulder surgery per Ortho [address] Ariel Medication/Treat ment Hx: Neuropathic Medications - lyrica (effective) Narcotic Medications - percocet (effective) Compliance: UDS/Damion For her pain she has provide Percocet and gabapentin which she tolerates. Updated Damion was reviewed today and is appropriate. Urine drug screen sent for confirmation on 10/29/2023 was appropriate positive for oxycodone, metabolites and gabapentin as expected. No urine drug screen was obtained today 02/01/2024. Patient's ORT by self reporting is 0. Plan: Ms. Martinez is an obese 53-year-old female with neck pain and decreased range of motion. I am going to refer her to physical therapy for evaluation and treatment. Her primary complaint is of axial back pain. This is left greater than right. She does have facet arthropathy on both sides and I have recommended bilateral L3-5 medial branch block with progression to RFA if beneficial. The patient is in agreement with this. All the risk and benefits been discussed at length. All requested been answered. Make arrangements for this in near future without sedation. For now we will continue Percocet 7.5/325 3 times daily as needed and gabapentin 300 mg twice daily. Will see her back in office in 60 days for further evaluation and treatment plan. The patient is in agreement with this plan. Over 30 minutes were spent with this patient today more than 50% of time spent in counseling coordination of care. The patient is counseled regarding opioid pain medication and has been informed of high risk factors which include but not limited to dependency, addiction, respiratory depression, and . The patient understands and accepts these risks. [email or web address] Not available 02/01/2024 10:38:43 04/21/2024 04/21/2024 Interval history: Ms. Martinez is a 53-year-old female we see for follow-up. She has neck and low back pain. She does have a history of ACDF of C4-5. Primary complaint is of axial back pain related to facet arthropathy. She has undergone physical therapy for this for greater than 6 weeks which include a home exercise program with minimal benefit. We did arrange for a medial branch block which was approved by insurance but on 04/09/2024. The patient was under the impression that this was not approved by insurance and did not schedule the injection. I explained this point we would have to start overall have to provide a new order and get this approved again. She appears to understand. She continues to have pain that is aggravated by standing as well as walking, bending and twisting relieved by sitting. She continues to have pain to palpation of the lower aspect of her lumbar spine around L4 and L5. There is reproduction of much of her pain again today with facet loading and rotation. For her multiple complaints we do provide her with Percocet which was initiated in the [place] office as well as gabapentin. She denies any adverse side effects with the medication. She reports her pain is stable range unchanged from the last visit. History: Ms. Martinez is a diabetic female who has a complaint of left arm pain follows roughly a C6 dermatome as well as low back pain with radicular symptoms predominate in the left lower extremity but to a lesser extent intermittent symptoms in the right lower extremity. She does have a history of ACDF of C4-5. We provide her with Percocet and gabapentin which she finds beneficial without any adverse side effects. Pertinent medical history: DM, Breast Cancer Imagin08/17/2022 CT Lumbar - Impression: degenerative changes putting facet arthropathy but no overt stenosis noted. 02/20/2020 CT Spine Cervical w/o Contrast FINDINGS: Vertebrae: Anterior fusion noted C4-[id number] enceofcomplicati on. 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 There is no evidence of acute fracture. The facet joints are normal. Discs/Spinal canal/Neural foramina: No significant disc protrusion. No severe spinal canal stenosis. No significant neural foraminal narrowing. Soft tissues: There are no soft tissue masses or fluid collections. Lungs: Lung apices are normal. IMPRESSION : 1. 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 2. No evidence of acute fracture. Injections : 08-07-2023 Lumbar Bilateral TPI 80% pain relief for 3 weeks. Surgical HX : 05/2017 patient had RTC shoulder surgery per Ortho [address] Ariel Medication/Treat ment Hx: Neuropathic Medications - lyrica (effective) Narcotic Medications - percocet (effective) Compliance: UDS/Damion For her pain she has provide Percocet and gabapentin which she tolerates. Updated Damion was reviewed today and is appropriate. Urine drug screen sent for confirmation on 10/29/2023 was appropriate positive for oxycodone, metabolites and gabapentin as expected. A urine drug screen was obtained today 04/21/2024 will be sent for qualitative and quantitative analysis. Patient's ORT by self reporting is 0,however, with use of opiates and polypharmacy she is considered moderate risk. To date there is no history of medical or behavioral comorbidities and no history of aberrant behavior. Plan: Ms. Martinez is an obese 53-year-old female with multiple pain generators however the primary complaint continues to be axial back pain. Once again I will place an order for a bilateral L3-5 medial branch block. If she has benefit from this we will proceed with a second diagnostic block and potentially an ablation. All risks and benefits of been discussed at length. All of her questions been answered. Make arrangements for this in near future without sedation. For multiple other complaints we will continue Percocet 7.5/325 3 times daily as needed as well as gabapentin 300 mg twice daily. She will follow-up in office in 60 days for further evaluation. No other medications were provided today. The patient is counseled regarding opioid pain medication and has been informed of high risk factors which include but not limited to dependency, addiction, respiratory depression, and . The patient understands and accepts these risks. [email or web address] Not available 04/21/2024 15:00:56 07/08/2024 07/08/2024 Interval history: Ms. Martinez is a 53-year-old female we see for follow-up multiple pain generators. She has neck pain as well as low back pain can have neuropathic pain in the left upper extremity that follows roughly a C6 dermatome. She also has low back pain is of axial nature and has been approved for a bilateral L3-5 medial branch block but has not scheduled this yet. We do provide her with gabapentin and Percocet which she typically finds beneficial for multiple complaints. She denies any adverse side effects. She reports her pain is notably increased as she has been out of her medication due to her appointment being rescheduled. She did not receive a bridge prescription. She also has had cellulitis of her face as well as sinusitis since we have seen her last. She now has some swelling around her parotid gland on the left mandible and neck today. I have encouraged her to get with her PCP and address this. History: Ms. Martinez is a diabetic female who has a complaint of left arm pain follows roughly a C6 dermatome as well as low back pain with radicular symptoms predominate in the left lower extremity but to a lesser extent intermittent symptoms in the right lower extremity. She does have a history of ACDF of C4-5. We provide her with Percocet and gabapentin which she finds beneficial without any adverse side effects. Pertinent medical history: DM, Breast Cancer Imagin08/17/2022 CT Lumbar - Impression: degenerative changes putting facet arthropathy but no overt stenosis noted. 02/20/2020 CT Spine Cervical w/o Contrast FINDINGS: Vertebrae: Anterior fusion noted C4-P7ulviybjoaes enceofcomplicati on. 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 There is no evidence of acute fracture. The facet joints are normal. Discs/Spinal canal/Neural foramina: No significant disc protrusion. No severe spinal canal stenosis. No significant neural foraminal narrowing. Soft tissues: There are no soft tissue masses or fluid collections. Lungs: Lung apices are normal. IMPRESSION : 1. 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 2. No evidence of acute fracture. Injections : 08-07-2023 Lumbar Bilateral TPI 80% pain relief for 3 weeks. Surgical HX : 05/2017 patient had RTC shoulder surgery per Ortho [address] Medication/Treat ment Hx: Neuropathic Medications - lyrica (effective) Narcotic Medications - percocet (effective) Compliance: UDS/Damion For her pain she has provide Percocet and gabapentin which she tolerates. Updated Damion was reviewed today and is appropriate. Urine drug screen sent for confirmation on 04/21/2024 was appropriate positive for oxycodone, metabolites but negative for prescribed gabapentin. No urine drug screen was obtained today 07/08/2024. Patient's ORT by self reporting is 0,however, with use of opiates and polypharmacy she is considered moderate risk. To date there is no history of medical or behavioral comorbidities and no history of aberrant behavior. Plan: Ms. Martinez is an obese 53-year-old female with multiple pain generators including axial back pain related to facet arthropathy. She has been approved for a bilateral L3-5 medial branch block. I explained we can schedule this today but she reports her schedule is fairly complicated needs her calendar before she can do this and will call us back to make an appointment. For now we will continue Percocet 7.5/325 3 times daily as needed and gabapentin 300 mg twice daily. She will follow-up in 60 days for further evaluation and treatment planning. Again I have encouraged her to get with her PCP to have her parotid gland evaluated. The patient is counseled regarding opioid pain medication and has been informed of high risk factors which include but not limited to dependency, addiction, respiratory depression, and . The patient understands and accepts these risks. [email or web address] Not available 07/08/2024 10:02:27 07/30/2024 07/30/2024 Care management services and General Behavioral Health Integration (CPT 34497) was provided for at least 20 minutes of clinical time in accordance with state regulation. Services included systematic assessment and monitoring, using applicable validated clinical rating scales, facilitation and coordination of behavioral health treatment, and continuous relationship with the care team. Patient has been provided a HIPAA-compliant software platform which the care team can access to monitor and care for the patient. This platform provides mindfulness activities, patient education materials pertaining to the patient? s psychosocial status and diagnosis, along with crisis resource information. Validated clinical rating scales will be repeated monthly to reassess presence or absence of daily dysfunction and emotional stress that may be related to physical health conditions, social or environmental factors. These assessments will guide us to provide a better pain management treatment. Care plans will continue to be updated monthly in accordance to changes in behavioral and physical health status. Medications will be closely monitored and adjusted according to validated rating scales and subjective data provided by patient (mood and sleep). Complete subjective and objective patient data is available in the patient records. Patient completed MARQUISE-7 on 07/30/2024 with scoring of 9 , indicating 5? 9: mild anxiety. Clinically validated interventions were considered and subsequently presented to the patient for their consideration and agreement. Patient was instructed to call our office if symptoms worsen. Through the erin, the patient was assigned the Reoccurring Assessments activity template, which includes informational videos, journals, and MARQUISE-2 / MARQUISE-7, PHQ-9, PDUQp, Oswestry - Lower Back, ORT-OUD. Patient was not contacted by our clinical support team but provided resources through the erin. The patient? s next visit is on 09/05/2024 . [email or web address] Not available 08/04/2024 13:01:10 Plan of Treatment Reminders Order Date Submit Date Provider Last Modified By Organization Details Last Modified Time Details Appointments INJECTION 2023 08:20A Candi MCNULTY MD Not available Not available Not available FOLLOW UP 15 2023 09:15A Candi MISTRY APRN Not available Not available Not available Lab drug screen, urine - Qualitati ve LCMS Screen Panel 2023 024 [facility], [facility], [address] [place] [address], [id number], 04/25/2024 10:51:30 Referral physical therapist referral 2023 024 [email or web address] Not available 02/12/2024 11:13:05 Procedures medial branch block, lumbar (PROC) - #1 Bilateral L3-5 MBB under fluorosco py with Dr. Mcnulty/Madeline matthews/ no sedation 2023 024 Not available 03/28/2024 08:38:42 remote therapeut ic monitorin g to monitor musculosk eletal system (PROC) - Patient prescribe d RTM (Remote Therapeut ic Monitorin g) to prevent further functiona l decline and monitor treatment effective ness. Patient will complete medicatio n tracking and physical therapy exercises as sadia johnson to take place over the next 12 months using the CP&S Erin to also include functiona l assessmen ts as well as daily pain scores. Patient consent obtained and device provided. 2023 024 [email or web address] Not available 04/23/2024 22:45:08 medial branch block, lumbar (PROC) - #1 Bilateral L3-5 MBB under fluorosco py with Dr. Mcnulty/Madeline exington/ no sedation 2023 024 [email or web address] Not available 07/10/2024 08:26:46 medial branch block, lumbar (PROC) - #2 LMBB Bilateral L3-L5 no sed Clif Yaniv 2023 024 Not available 08/05/2024 11:43:30 Surgeries None recorded. Imaging None recorded. Medication Orders gabapenti n 300 mg capsule [address] [facility][id number], [address], [id number], 02/01/2024 12:35:07 Percocet 7.5 mg-325 mg tablet 2023 024 [facility]57957, [address], [id number], 02/01/2024 11:44:33 Percocet 7.5 mg-325 mg tablet 2023 024 [facility] #62799, [address], [place], [place], [id number], 02/01/2024 11:44:29 gabapenti n 300 mg capsule 2023 024 [address] [facility], [address], [id number], 04/21/2024 16:15:49 Percocet 7.5 mg-325 mg tablet 2023 [facility], [address] [address] [address], [place], [id number], 04/21/2024 15:27:12 Percocet 7.5 mg-325 mg tablet 2023 [facility]1968, [address] [facility] [address], [place], [id number], 04/21/2024 15:27:13 gabapenti n 300 mg capsule 2023 [facility] #53902, [address] [facility] [address], [place], [id number], 07/08/2024 09:59:01 Percocet 7.5 mg-325 mg tablet 2023 [facility] #25911, [address] [address] [address], [place], [id number], 07/08/2024 10:23:10 Percocet 7.5 mg-325 mg tablet 2023 [facility] #17733, [address] [address] [address], [place], [id number], 07/08/2024 10:23:10 Patient TargetsNo targets recorded. Patient Instructions Encounter Date Encounter Id Patient Instructions Last Modified By Organization Details Last Modified Time 04/21/2024 [id number] behavioral healt h screen* [email or web address] Not available 04/22/2024 08:55:10 07/08/2024 [id number] behavioral healt h screen* Not available 07/08/2024 16:16:49 Reason for Referral Physical Therapist Referral for Cervical spondylosis Referring Physician: Odell Mistry, Pain Management, Encounter Date: 02/01/2024 Results Created Date Observation Date Name Description Value Unit Range Abnormal Flag Note LastModifiedBy Organization Detail LastModifiedTime Result Notes None recorded. Problems Name Problem SNOMED Code Status Onset Date Resolution Date Notes Provider Name and Address Organization Details Recorded Time Myofascial pain 616217882 Active 2023 lilyrajan johnson [place] - [facility] 4 09:39:55 Cervical spondylosis 824156236 Active 2023 lilyrajan escobar null, [place] - [facility] 4 14:47:06 Lumbar spondylosis 731261260 Active 2023 lilyrajan escobar null, [place] - [facility] 4 14:47:06 Cervical radiculitis 41550295 Active 2023 lilyrajan escobar null, [place] - [facility] 4 14:47:07 Chronic pain 50261497 Active 2023 lily escobar elizabeth [place] - [facility] 4 13:50:27 Restless legs 79061843 Active 2021 Yesi Fayette null, [place] - [facility] 2 06:49:53 Cervical post-laminect huan syndrome 312648696 Active 2021 Yesiofe Pimentel null, [place] - [facility] 2 06:49:53 Inflammation of sacroiliac joint 64738117 Active 2022 ELISEO LUGO NP [address] [place], [address] , [place] - [facility] 3 08:40:14 Problem Notes None recorded. Procedures Surgical History Date Name Laterality Status Provider Name and Address Organization Details Recorded Time 07/28/20 24 Diagnostic Lumbar MBB (2 Level Bilateral) completed Maia Storm [place] [facility] 07/28/2024 08:21:25 03/19/20 24 Diagnostic Lumbar MBB (2 Level Bilateral) cancelled elvis patten [place] [facility] 02/22/2024 09:35:00 08/07/20 23 Trigger Point Injections completed Hung [address] [place], [address], [facility] 08/07/2023 18:10:25 09/14/19 23 Breast Surgery completed Bruna Nap[facility] 09/25/2022 08:29:10 01/26/20 21 lipofilling of breast completed Bruna Nap[facility] 02/09/2021 09:19:32 01/25/20 21 SI Joint Injection (Fluoro) completed Joni Jimenez DO [address] [place] [address], [phone], [facility] 01/24/2021 11:58:08 01/13/20 21 SI Joint Injection (Fluoro) cancelled Nico Guerrero [facility] 01/12/2021 15:27:47 10/04/19 21 SI Joint Injection (Fluoro) completed Joni Jimenez DO [address] [place] [address], [phone], [facility] 10/04/2020 14:18:59 06/28/20 20 SI Joint Injection (Fluoro) completed Joni Jimenez DO [address] [place] [address], [id number], [facility] 06/29/2020 22:28:00 09/10/19 00 ACDF completed Marjan Chap[facility] 05/18/2020 11:48:30 Shoulder Surgery completed Marjan Chap[facility] 05/18/2020 11:48:05 Foot/Ankle Surgery completed Marjan Chaparro [facility] 05/18/2020 11:48:09 excision completed Bruna Napier [facility] 08/01/2021 08:19:30 Imaging Results None recorded. Procedure Notes None recorded. Medical Equipment None Reported. Allergies Allergen ID Allergen Name Allergen Category Reaction Reaction Severity Criticality Documentation Date Start Date Code Code System Note Provider Name and Address Organization Details Recorded Time 938527 latex environme nt,medica tion Not available Not available Not available 05/18/2020 75424 91 RxNorm Marjan johnson [facility] 0 11:45:20 365078 adhesive tape environme nt,medica tion Not available Not available Not available 08/01/2021 VIKTOR Francis - [facility] 1 08:13:28 Medications Name Sig Start Date Stop Date Status Note LastModified by Organization Details LastModified Time cyclobenzap rine 10 mg tablet TAKE 1 TABLET BY MOUTH THREE TIMES DAILY NEEDED active Not Available Not Available No t Available amoxicillin 500 mg capsule TAKE 1 CAPSULE BY MOUTH THREE TIMES DAILY 05/22 completed Not Available Not Available Not Available furosemide 40 mg tablet TAKE 1 TABLET BY MOUTH NEEDED FOR LOWER EXTREMITY EDEMA active Not Available Not Available No t Available anastrozole 1 mg tablet TAKE 1 TABLET BY MOUTH ONCE DAILY active Not Available Not Available No t Available promethazin e-DM 6.25 mg-15 mg/5 mL oral syrup TAKE 5 ML BY MOUTH FOUR TIMES DAILY NEEDED FOR COUGH FOR UP TO 7 DAYS 09/25 completed Not Available Not Available Not Available atorvastati n 80 mg tablet TAKE 1 TABLET BY MOUTH EVERY DAY active Not Available Not Available No t Available ropinirole 1 mg tablet TAKE 1 TABLET BY MOUTH EVERY DAY AT BEDTIME 03/27 completed Not Available Not Available Not Available citalopram 40 mg tablet TAKE 1 TABLET BY MOUTH DAILY 04/24 completed Not Available Not Available Not Available azithromyci n 250 mg tablet TAKE 2 TABLETS BY MOUTH ON DAY 1, THEN TAKE 1 TABLET DAILY ON DAYS 2-5 09/25 completed Not Available Not Available Not Available tizanidine 4 mg tablet 10/18 completed Not Available Not Available Not Available fluconazole 150 mg tablet TAKE 1 TABLET BY MOUTH DAILY 08/28 completed Not Available Not Available Not Available sumatriptan 100 mg tablet TAKE 1 TABLET BY MOUTH 1 TIME AT ONSET OF HEADACHE. REPEAT AFTER 2 HOURS IF HEADACHE PERSISTS active Not Available Not Available No t Available cephalexin 250 mg capsule take until finished- -spider bite 09/25 completed Not Available Not Available Not Available meloxicam 15 mg tablet TAKE 1/2 TABLET BY MOUTH TWICE DAILY 08/01 completed Not Available Not Available Not Available sucralfate 1 gram tablet TAKE 1 TABLET BY MOUTH FOUR TIMES A DAY 1 HOUR BEFORE MEALS AND AT BEDTIME 10/18 completed Not Available Not Available Not Available lisinopril 20 mg tablet TAKE 1 TABLET BY MOUTH DAILY active Not Available Not Available No t Available ondansetron HCl 4 mg tablet TAKE 1 TABLET BY MOUTH EVERY 6 HOURS NEEDED FOR NAUSEA OR VOMITING active Not Available Not Available No t Available prednisone 20 mg tablet TAKE ONE TABLET BY MOUTH TWICE DAILY FOR 5 DAYS 09/25 completed Not Available Not Available Not Available gabapentin 400 mg capsule 10/18 completed Not Available Not Available Not Available glipizide ER 5 mg tablet, extended release 24 hr TAKE 1 TABLET BY MOUTH TWICE DAILY 07/24 completed Not Available Not Available Not Available cyanocobala min (vit B-12) 1,000 mcg tablet TAKE 1 TABLET BY MOUTH ONCE DAILY active Not Available Not Available No t Available bacitracin 500 unit/gram topical ointment active Not Available Not Available Not Available topiramate 25 mg tablet TK 1 T PO BID 08/01 completed Not Available Not Available Not Available potassium chloride ER 10 mEq tablet,exte nded release TAKE 1 TABLET BY MOUTH DAILY WITH FOOD active Not Available Not Available No t Available sulfamethox azole 800 mg-trimetho prim 160 mg tablet TAKE 1 TABLET BY MOUTH IN THE MORNING AND AT BEDTIME FOR 10 DAYS 10/23 completed Not Available Not Available Not Available hydrocodone 10 mg-acetamin ophen 325 mg tablet 10/18 completed Not Available Not Available Not Available omeprazole 40 mg capsule,del ayed release TAKE 1 CAPSULE BY MOUTH DAILY active Not Available Not Available No t Available prednisone 10 mg tablets in a dose pack TAKE DIRECTED 03/27 completed Not Available Not Available Not Available meloxicam 7.5 mg tablet TAKE 1 TABLET BY MOUTH TWICE DAILY 04/24 completed Not Available Not Available Not Available oxycodone-a cetaminophe n 5 mg-325 mg tablet TAKE 1 TABLET BY MOUTH EVERY 6 HOURS NEEDED 02/09 completed Not Available Not Available Not Available amoxicillin 875 mg tablet 06/06 completed Not Available Not Available Not Available citalopram 20 mg tablet TAKE 1 TABLET BY MOUTH ONCE DAILY 08/01 completed Not Available Not Available Not Available magnesium oxide 400 mg (241.3 mg magnesium) tablet TAKE 1 TABLET BY MOUTH TWICE DAILY active Not Available Not Available No t Available ropinirole 0.25 mg tablet TAKE 1 TABLET BY MOUTH EVERY DAY DIRECTED 10/18 completed Not Available Not Available Not Available OneTouch Ultra Test strips TEST THREE TIMES DAILY 12/26 completed Not Available Not Available Not Available baclofen 10 mg tablet TK 1 T PO BID PRN FOR MUSCLE SPASMS 10/18 completed Not Available Not Available Not Available benzonatate 100 mg capsule TAKE ONE CAPSULE BY MOUTH THREE TIMES DAILY NEEDED FOR COUGH FOR UP TO 7 DAYS. DO NOT CRUSH, CHEW, OR DIVIDE. 09/25 completed Not Available Not Available Not Available doxycycline monohydrate 100 mg capsule TAKE 1 CAPSULE BY MOUTH TWICE DAILY FOR 7 DAYS DIRECTED 08/01 completed Not Available Not Available Not Available ropinirole 2 mg tablet TAKE 1 TABLET BY MOUTH EVERY NIGHT AT BEDTIME active Not Available Not Available No t Available cephalexin 500 mg capsule TAKE 1 CAPSULE BY MOUTH FOUR TIMES DAILY FOR 7 DAYS active Not Available Not Available No t Available metformin 1,000 mg tablet TAKE 1 TABLET BY MOUTH TWICE DAILY WITH FOOD active Not Available Not Available No t Available ropinirole 0.5 mg tablet TAKE 1 TABLET BY MOUTH EVERY DAY active Not Available Not Available No t Available olopatadine 0.1 % eye drops use as needed 09/25 completed Not Available Not Available Not Available metoprolol tartrate 50 mg tablet TAKE 1 TABLET BY MOUTH TWICE DAILY 08/01 completed Not Available Not Available Not Available nitroglycer in 0.[address] 1 TABLET UNDER THE TONGUE EVERY 5 MINUTES IN NEEDED FOR CHEST PAIN. MAXIMUM DAILY DOSE IS 3 active Not Available Not Available No t Available mupirocin calcium 2 % topical cream APPLY TOPICALLY TO THE AFFECTED AREA TWICE DAILY 08/28 completed Not Available Not Available Not Available oxybutynin chloride ER 5 mg tablet,exte nded release 24 hr TAKE 1 TABLET BY MOUTH DAILY active Not Available Not Available No t Available gabapentin 300 mg capsule TAKE 1 CAPSULE BY MOUTH TWICE DAILY active Not Available Not Available No t Available hydroxyzine HCl 25 mg tablet TAKE 1 TABLET BY MOUTH TWICE DAILY NEEDED active Not Available Not Available No t Available mupirocin 2 % topical ointment APPLY TOPICALLY THREE TIMES DAILY FOR 10 DAYS 12/26 completed Not Available Not Available Not Available furosemide 20 mg tablet TAKE 1 TABLET BY MOUTH EVERY DAY NEEDED FOR LOWER EXTREMITY EDEMA 08/28 completed Not Available Not Available Not Available ergocalcife rol (vitamin D2) 1,250 mcg (50,000 unit) capsule TAKE 1 CAPSULE BY MOUTH WEEKLY 07/30 completed Not Available Not Available Not Available epinephrine 0.3 mg/0.3 mL injection, auto-inject or 01/10 completed Not Available Not Available Not Available oxycodone-a cetaminophe n 7.5 mg-325 mg tablet TAKE 1 TABLET BY MOUTH THREE TIMES DAILY NEEDED active Not Available Not Available No t Available SSD 1 % topical cream APPLY TOPICALLY TO THE AFFECTED AREA IN THE MORNING AND AT BEDTIME 07/08 completed Not Available Not Available Not Available sertraline 50 mg tablet TAKE 1 TABLET BY MOUTH DAILY active Not Available Not Available No t Available amitriptyli ne 100 mg tablet TAKE 1 TABLET BY MOUTH AT BEDTIME active Not Available Not Available No t Available loratadine 10 mg tablet TAKE 1 TABLET BY MOUTH EVERY DAY active Not Available Not Available No t Available glipizide 5 mg tablet TAKE 2 TABLETS BY MOUTH IN THE MORNING AND AT NIGHT 08/28 completed Not Available Not Available Not Available amoxicillin 875 mg-potassiu m clavulanate 125 mg tablet TAKE 1 TABLET BY MOUTH TWICE DAILY 03/09 completed Not Available Not Available Not Available bacitracin- polymyxin B 500 unit-10,000 unit/gram eye ointment APPLY 1/4 INCH STRIP INTO THE LOWER LEFT EYE LID TWICE DAILY 08/01 completed Not Available Not Available Not Available hydroxyzine pamoate 25 mg capsule TAKE 1 CAPSULE BY MOUTH THREE TIMES DAILY NEEDED FOR ITCHING 01/23 completed Not Available Not Available Not Available diltiazem 90 mg tablet TAKE 1 TABLET BY MOUTH TWICE DAILY 08/01 completed Not Available Not Available Not Available neomycin 3.5 mg/g-polymy deanne B 10,000 unit/g-dexa meth 0.1 % eye oint 08/01 completed Not Available Not Available Not Available Vitamin B-12 ER 1,000 mcg tablet,exte nded release TAKE 1 TABLET BY MOUTH ONCE DAILY active Not Available Not Available No t Available TobraDex 0.3 %-0.1 % eye drops,suspe nsion INSTILL 1 DROP INTO BOTH EYES 4 TIMES A DAY THEN TAPER DIRECTED 08/01 completed Not Available Not Available Not Available moxifloxaci n 0.5 % eye drops INSTILL 1 DROP IN LEFT EYE EVERY HOUR WHILE AWAKE DIRECTED 08/01 completed Not Available Not Available Not Available topiramate 50 mg tablet TAKE 1 TABLET BY MOUTH TWICE DAILY active Not Available Not Available No t Available Calcium 600 + D(3) 600 mg-5 mcg (200 unit) tablet TAKE 2 TABLET BY MOUTH EVERY MORNING AND AT BEDTIME active Not Available Not Available No t Available pregabalin 75 mg capsule TAKE 1 CAPSULE BY MOUTH TWICE DAILY DIRECTED active Not Available Not Available No t Available pregabalin 100 mg capsule TAKE 1 CAPSULE BY MOUTH TWICE DAILY active Not Available Not Available No t Available pregabalin 150 mg capsule TAKE 1 CAPSULE BY MOUTH TWICE DAILY NEEDED 06/27 completed Not Available Not Available Not Available magnesium 10/18 completed Not Available Not Available Not Available atorvastati n 10/18 completed Not Available Not Available Not Available glyburide 10/18 completed Not Available Not Available Not Available Imitrex 10/18 completed Not Available Not Available Not Available potassium alum (bulk) 10/18 completed Not Available Not Available Not Available BD Ultra-Fine Short Pen Needle 31 gauge x 01/23 USE TO INJECT VICTOZA EVERY DAY 09/25 completed Not Available Not Available Not Available calcium 600 mg (as carbonate)- vitamin D3 10 mcg (400 unit) tablet Take by oral route for 15 days. active Not Available Not Available No t Available cholecalcif renaldo (vitamin D3) 1,250 mcg (50,000 unit) capsule TAKE 1 CAPSULE BY MOUTH WEEKLY active Not Available Not Available No t Available ferrous sulfate 324 mg (65 mg iron) tablet,vernon yed release TAKE 1 TABLET BY MOUTH TWICE DAILY WITH MEALS active Not Available Not Available No t Available FeroSul 325 mg (65 mg iron) tablet TAKE 1 TABLET BY MOUTH EVERY DAY 03/01 completed Not Available Not Available Not Available levocetiriz ine 5 mg tablet TAKE 1 TABLET BY MOUTH AT BEDTIME active Not Available Not Available No t Available diclofenac 1 % topical gel APPLY 4 GRAMS TO AFFECTED LARGE JOINT EVERY 6 HOURS NEEDED. 07/08 completed Not Available Not Available Not Available Victoza 2-Yoandy 10/18 completed Not Available Not Available Not Available Victoza 3-Yoandy 0.6 mg/0.1 mL (18 mg/3 mL) subcutaneou s pen injector INJECT 0.6MG DAILY FOR 1 WEEK THEN 1.2 MG DAILY FOR 1 WEEK THEN 1.8 MG DAILY THEREAFTE R. CONTINUE WITH 1.8MG 03/01 completed Not Available Not Available Not Available Ozempic 0.25 mg or 0.5 mg (2 mg/1.5 mL) subcutaneou s pen injector INJECT 0.5 MG UNDER THE SKIN EVERY WEEK 12/26 completed Not Available Not Available Not Available OneTouch Ultra Blue Test Strip USE TO TEST BLOOD SUGAR ONCE A DAY BEFORE BREAKFAST 08/01 completed Not Available Not Available Not Available OneTouch Ultra2 Meter USE DIRECTED 07/24 completed Not Available Not Available Not Available OneTouch Delica Plus Lancet 33 gauge USE TO TEST BLOOD SUGAR 3 TIMES DAILY 01/31 completed Not Available Not Available Not Available OneTouch Delica Plus Lancet 30 gauge USE TO TEST BLOOD SUGAR THREE TIMES DAILY 08/01 completed Not Available Not Available Not Available Fluarix Quad (PF) 60 mcg (15 mcg x 4)/0.5 mL IM syringe 10/18 completed Not Available Not Available Not Available Fluzone Quad (PF) 60 mcg (15 mcg x 4)/0.5 mL IM syringe 10/18 completed Not Available Not Available Not Available BinaxNOW COVID-19 Ag Self Test kit TEST DIRECTED TODAY 01/31 completed Not Available Not Available Not Available Mounjaro 5 mg/0.5 mL subcutaneou s pen injector ADMINISTE R 5 MG UNDER THE SKIN WEEKLY active Not Available Not Available No t Available Mounjaro 2.5 mg/0.5 mL subcutaneou s pen injector ADMINISTE R 2.5 MG UNDER THE SKIN ONCE WEEKLY 08/28 completed Not Available Not Available Not Available Ozempic 0.25 mg or 0.5 mg (2 mg/3 mL) subcutaneou s pen injector INJECT 0.5 MG UNDER THE SKIN ONCE WEEKLY DIRECTED 04/24 completed Not Available Not Available Not Available Klayesta 100,000 unit/gram topical powder APPLY TO TO THE AFFECTED AREA TWICE DAILY active Not Available Not Available No t Available Vitals Date Recorded Body height Body mass index (BMI) Body weight Heart rate Oxygen saturation Oxygen saturation in Arterial blood by Pulse oximetry Systolic blood pressure Diastolic blood pressure Provider Name and Address Organization Details Last Updated DateTime 4 162.56 cm 33.5 kg/m2 98534.5 1 g 75 /min 99 % 99 % 96 mm[Hg] 57 mm[Hg] lily escobar [facility] 4 10:01:54 Date Recorded Body height Body mass index (BMI) Body weight Oxygen saturation Oxygen saturation in Arterial blood by Pulse oximetry Heart rate Systolic blood pressure Diastolic blood pressure Provider Name and Address Organization Details Last Updated DateTime 4 162.56 cm 29.9 kg/m2 45644.0 7 g 98 % 98 % 81 /min 101 mm[Hg] 54 mm[Hg] Christianne [facility] 4 14:40:22 Date Recorded Body height Body mass index (BMI) Body weight Oxygen saturation Oxygen saturation in Arterial blood by Pulse oximetry Heart rate Systolic blood pressure Diastolic blood pressure Provider Name and Address Organization Details Last Updated DateTime 4 162.56 cm 29.9 kg/m2 97795.0 7 g 99 % 99 % 74 /min 132 mm[Hg] 77 mm[Hg] Rocio Schaefer [facility] 4 09:41:19 Social History Question Answer Notes LastModified by Organizat ion Details LastModified Time Tobacco Smoking Status [facility] 11:47:41 Do You Have An Advance Directive? No [email or web address] Information n ot available 06/19/2022 What Is Your Level Of Alcohol Consumption? None [email or web address] Information not available 05/18/2020 In The 14 Days Before Symptom Onset, Have You Had Close Contact With A Laboratory-confirm ed COVID-19 While That Case Was Ill? No [email or web address] Information n ot available 09/05/2021 In The 14 Days Before Symptom Onset, Have You Had Close Contact With A Person Who Is Under Investigation For COVID-19 While That Person Was Ill? No [email or web address] Information not available 09/05/2021 Are You Currently Employed? Yes [email or web address] Information not available 01/23/2023 What Type Of Diet Are You Following? REGULAR Information n ot available 09/05/2021 Which Illicit Or Recreational Drugs Have You Used? NONE [email or web address] Information not available 05/18/2020 Education 12 [email or web address] Information no t available 05/18/2020 What Is The Highest Grade Or Level Of School You Have Completed Or The Highest Degree You Have Received? 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 3-4 Times Per Week [email or web address] Information not available 09/05/2021 Prescription Drug Abuse No [email or web address] Information not available 05/18/2020 History Of Sexual Abuse No [email or web address] Information not available 05/18/2020 Marital Status Informatio n not available 05/18/2020 What Was The Date Of Your Most Recent Tobacco Screening? 02/01/2024 [email or web address] Information not available 02/01/2024 What Is Your Relationship Status? Information not available 08/01/2021 Do You Use Any Illicit Or Recreational Drugs? No Information not available 08/01/2021 How Many Years Have You Smoked Tobacco? 20 [email or web address] Information not available 05/18/2020 Sex: Unknown Functional Status Question Answer Note LastModified by Organizat ion Details LastModified Time Are you able to walk? [email or web address] Information not available 08/01/2021 What is your exercise level? Occasional [email or web address] Information not available 05/18/2020 Mental Status None recorded. Family History Relationship Description Onset Age of this Age Resolved Age Notes LastModified by Organization Details LastModified Time Unspecified Relation Diabetes mellitus [email or web address] Not available 05/18 11:47:21 Unspecified Relation Heart disease [email or web address] Not available 05/18 11:47:27 Medical History Condition Response Bipolar Disease N Coronary Artery Disease N Gout N Seizure Disorder N Thyroid Disease N Atrial Fibrillation N Hernia N Head Trauma/Injury N COPD N Depression N Anxiety Disorder Y Acid Reflux (GERD) Y Cancer Y Skin Disorder N Stroke N High Cholesterol Y Liver Disease N Rheumatoid Arthritis N Fibromyalgia N Headaches Y Autoimmune Disease N Kidney Disease N Osteoarthritis N Neurosurgery Y DVT N Peptic Ulcer Disease N Anemia Y Heart Attack (OR) N Diabetes Y Cardiomyopathy N Bleeding Disorder N CHF N AIDS/HIV N Inflammatory Bowel Disease N Dementia N Asthma N Substance Abuse N Sleep Apnea N Hepatitis N Heart Disease N Pulmonary Embolism N Chronic Low Back Pain Y Hypertension Y Osteoporosis N Gynecological HistoryNo gynecological history recorded. Obstetrics History GPAL:G 0 P 0 0 0 0 Past Encounters Encounter ID Performer Location Encounter Start Date Encounter Closed Date Diagnosis/Indication Diagnosis SNOMED-CT Code Diagnosis ICD10 Code [id number] DO Karolyn Campa [address] [place] [address] 05/18/2020 09:46:02 05/18/2020 12:25:43 Degeneration of lumbar intervertebral disc 71833107 M51.36 Long-term drug therapy 861177264 Z79.899 Cervical post-laminectomy syndrome 708324271 M96.1 Inflammati on of sacroiliac joint 54047254 M46.1 [id number] Joni [place]aylor [place] [place] [address] 06/15/2020 07:00:19 06/15/2020 07:41:43 Degeneration of lumbar intervertebral disc 02324706 M51.36 Long-term drug therapy 956202408 Z79.899 Cervical post-laminectomy syndrome 570141233 M96.1 Inflammati on of sacroiliac joint 57719953 M46.1 [id number] Joni Tony DO [place] [address] [place] [address] 06/28/2020 17:30:37 06/28/2020 19:10:09 Inflammation of sacroiliac joint 20934568 M46.1 [id number] Joni Tony DO [place] [address] [place] [address] 07/13/2020 07:04:00 07/13/2020 07:36:50 Degeneration of lumbar intervertebral disc 50311542 M51.36 Long-term drug therapy 280107619 Z79.899 Cervical post-laminectomy syndrome 769630536 M96.1 Inflammati on of sacroiliac joint 16288193 M46.1 [id number] MD Carlos Hiltonille [address] [facility],[place] [address] 08/17/2020 17:17:45 08/17/2020 18:17:55 Degeneration of lumbar intervertebral disc 01899276 M51.36 Cervical post-laminectomy syndrome 208289028 M96.1 Inflammati on of sacroiliac joint 21195215 M46.1 Long-term drug therapy 385429289 Z79.899 [id number] SARA ACE [address],[place] [address] 09/20/2020 16:04:54 09/20/2020 17:49:33 Degeneration of lumbar intervertebral disc 65772746 M51.36 Cervical post-laminectomy syndrome 063558155 M96.1 Inflammati on of sacroiliac joint 03027927 M46.1 [id number] DO Rosa Elena [place] [address],[place] [address] 10/04/2020 13:33:56 10/04/2020 13:59:17 Inflammation of sacroiliac joint 70054637 M46.1 [id number] SARA ACE [address],[place] [address] 10/18/2020 14:17:50 10/18/2020 16:05:46 Degeneration of lumbar intervertebral disc 91500224 M51.36 Cervical post-laminectomy syndrome 970361689 M96.1 Inflammati on of sacroiliac joint 83613358 M46.1 Chronic pain syndrome 37 7564674 G89.4 [id number] SARA ACE [address],[place] [address] 11/15/2020 16:04:09 11/15/2020 17:12:34 Degeneration of lumbar intervertebral disc 85128214 M51.36 Cervical post-laminectomy syndrome 564846034 M96.1 Inflammati on of sacroiliac joint 85932820 M46.1 Chronic pain syndrome 37 5897266 G89.4 Long-term drug therapy 044041088 Z79.897 [id number] SARA ACE [address],[facility] [place] [address] 12/13/2020 16:09:55 12/13/2020 17:02:27 Degeneration of lumbar intervertebral disc 15078143 M51.36 Cervical post-laminectomy syndrome 193153527 M96.1 Inflammati on of sacroiliac joint 47067946 M46.1 Chronic pain syndrome 37 0194453 G89.4 Gastroesop hageal reflux disease 006090268 K21.9 [id number] SARA ACE [address],[facility] [place] [address] 01/10/2021 15:45:57 01/10/2021 16:23:18 Degeneration of lumbar intervertebral disc 05887665 M51.36 Cervical post-laminectomy syndrome 710368850 M96.1 Inflammati on of sacroiliac joint 20882755 M46.1 Chronic pain syndrome 37 1998542 G89.4 Long-term drug therapy 696843561 Z79.636 [id number] Joni Jimenez DO [place],[facility] [place] [address] 01/24/2021 10:45:58 01/24/2021 11:14:33 Inflammation of sacroiliac joint 42384175 M46.1 [id number] SARA ACE [address],[facility] [place] [address] 02/09/2021 09:05:22 02/09/2021 09:42:31 Degeneration of lumbar intervertebral disc 65564575 M51.36 Cervical post-laminectomy syndrome 890391537 M96.1 Inflammati on of sacroiliac joint 90750435 M46.1 Chronic pain syndrome 37 5130043 G89.4 [id number] SARA ACE [address] [place] [address] 03/09/2021 09:18:10 03/09/2021 10:02:41 Degeneration of lumbar intervertebral disc 67549129 M51.36 Cervical post-laminectomy syndrome 774829155 M96.1 Inflammati on of sacroiliac joint 75887207 M46.1 Chronic pain syndrome 37 7976407 G89.4 Candidiasis 69368129 B37 .9 [id number] MARIIA PRCIE NP [address] [address] 04/06/2021 11:08:49 04/06/2021 11:50:23 Degeneration of lumbar intervertebral disc 29823717 M51.36 Cervical post-laminectomy syndrome 735925309 M96.1 Inflammati on of sacroiliac joint 13577221 M46.1 Chronic pain syndrome 37 8647573 G89.4 Candidiasis of skin 4988 3006 B37.2 [id number] [place] [address] [address] 05/04/2021 08:12:54 05/04/2021 08:59:24 Degeneration of lumbar intervertebral disc 33448437 M51.36 Cervical post-laminectomy syndrome 555373881 M96.1 Inflammati on of sacroiliac joint 36021106 M46.1 Chronic pain syndrome 37 4320339 G89.4 Long-term drug therapy 742183829 Z79.853 [id number] MARIIA PRICE NP [address] [address] 06/06/2021 07:10:21 06/06/2021 07:47:54 Degeneration of lumbar intervertebral disc 98587223 M51.36 Cervical post-laminectomy syndrome 524916901 M96.1 Inflammati on of sacroiliac joint 18158690 M46.1 Chronic pain syndrome 37 8866779 G89.4 Long-term drug therapy 384734176 Z79.439 [id number] MARIIA PRICE NP [address] [address] 07/04/2021 07:08:04 07/04/2021 07:41:29 Degeneration of lumbar intervertebral disc 55694287 M51.36 Cervical post-laminectomy syndrome 100524572 M96.1 Inflammati on of sacroiliac joint 07523829 M46.1 Chronic pain syndrome 37 8305056 G89.4 Long-term drug therapy 405044899 Z79.998 [id number] MARIIA PRICE NP [place] [address] [address] 08/01/2021 07:36:09 08/01/2021 08:53:37 Degeneration of lumbar intervertebral disc 39521681 M51.36 Cervical post-laminectomy syndrome 198454712 M96.1 Inflammati on of sacroiliac joint 42812036 M46.1 Chronic pain syndrome 37 2857639 G89.4 Long-term drug therapy 889567026 Z79.899 Pain of ri ght shoulder joint 8345780128 8322166 M25.330 [id number] OLGA LOREDO NP [place] [address] [address] 09/05/2021 07:21:05 09/05/2021 08:09:32 Degeneration of lumbar intervertebral disc 97843705 M51.36 Cervical post-laminectomy syndrome 502329987 M96.1 Chronic pain syndrome 37 8051398 G89.4 Long-term drug therapy 062101088 Z79.899 Pain of ri ght shoulder joint 3953601793 5101991 M25.408 [id number] MARIIA PRICE NP [place] [address] [address] 10/10/2021 06:52:38 10/10/2021 07:30:40 Degeneration of lumbar intervertebral disc 95258124 M51.36 Cervical post-laminectomy syndrome 828994674 M96.1 Chronic pain syndrome 37 9408625 G89.4 Pain of ri ght shoulder joint 3279938687 3486054 M25.511 Long-term drug therapy 191114147 Z79.229 [id number] OLGA LOREDO NP [place] [address] [address] 11/07/2021 06:52:38 11/07/2021 07:39:32 Degeneration of lumbar intervertebral disc 44576239 M51.36 Cervical post-laminectomy syndrome 877276515 M96.1 Chronic pain syndrome 37 0708749 G89.4 Pain of ri ght shoulder joint 2192931534 0197616 M25.511 Long-term drug therapy 083232253 Z79.307 [id number] OLGA LOREDO NP [place] [address] [place] [address] 12/05/2021 07:01:47 12/05/2021 07:38:55 Degeneration of lumbar intervertebral disc 08879024 M51.36 Cervical post-laminectomy syndrome 428764530 M96.1 Chronic pain syndrome 37 3566831 G89.4 Pain of ri ght shoulder joint 6192659911 3330572 M25.511 Long-term drug therapy 827917123 Z79.698 [id number] SARA PIERSON [place] [address] [place] [address] 02/01/2022 06:54:50 02/01/2022 07:53:52 Degeneration of lumbar intervertebral disc 64834550 M51.36 Cervical post-laminectomy syndrome 433944256 M96.1 Pain of ri ght shoulder joint 6899972788 5204399 M25.511 Long-term drug therapy 851276455 Z79.899 Inflammati on of sacroiliac joint 47022554 M46.1 [id number] OLGA LOREDO NP [place] [address] [place] [address] 03/01/2022 06:57:42 03/01/2022 08:13:36 Degeneration of lumbar intervertebral disc 14224277 M51.36 Cervical post-laminectomy syndrome 690735415 M96.1 Pain of ri ght shoulder joint 1633906673 5933818 M25.511 Inflammati on of sacroiliac joint 54806905 M46.1 Long-term drug therapy 406137851 Z79.899 Restless legs 38029192 G 25.81 [id number] OLGA LOREDO NP [place] [address] [place] [address] 04/24/2022 07:06:04 04/24/2022 08:20:09 Degeneration of lumbar intervertebral disc 70453458 M51.36 Cervical post-laminectomy syndrome 257970400 M96.1 Restless legs 58962019 G 25.81 Pain of ri ght shoulder joint 9810204481 6993839 M25.511 Inflammati on of sacroiliac joint 38620379 M46.1 [id number] OLGA LOREDO NP [place] [address] 06/19/2022 06:53:25 06/19/2022 07:48:31 Degeneration of lumbar intervertebral disc 83741019 M51.36 Cervical post-laminectomy syndrome 810291351 M96.1 Restless legs 49678820 G 25.81 Pain of ri ght shoulder joint 7087258945 7747071 M25.511 Inflammati on of sacroiliac joint 93489813 M46.1 [id number] KALIA COSTELLO NP [place] [address] 07/24/2022 06:53:14 07/24/2022 07:36:21 Degeneration of lumbar intervertebral disc 73048112 M51.36 Cervical post-laminectomy syndrome 514046616 M96.1 Restless legs 61924110 G 25.81 Long-term drug therapy 301092470 Z79.435 [id number] SARA ACE[address] [address] 09/25/2022 08:03:04 09/25/2022 08:48:31 Degeneration of lumbar intervertebral disc 25868546 M51.36 Cervical post-laminectomy syndrome 695809210 M96.1 Restless legs 57668787 G 25.81 Long-term drug therapy 272807939 Z79.176 [id number] SARA ACE[address] [address] 10/23/2022 07:23:23 10/23/2022 08:24:13 Degeneration of lumbar intervertebral disc 40285336 M51.36 Cervical post-laminectomy syndrome 121715862 M96.1 Restless legs 40159743 G 25.81 Long-term drug therapy 661760894 Z79.298 [id number] SARA ACE[address] [address] 11/20/2022 08:22:56 11/20/2022 09:13:09 Degeneration of lumbar intervertebral disc 58829042 M51.36 Cervical post-laminectomy syndrome 148651498 M96.1 Restless legs 81923956 G 25.81 Long-term drug therapy 444088883 Z79.572 [id number] SARA ENCARNACION [address] [address] 12/26/2022 07:15:19 12/26/2022 08:06:00 Degeneration of lumbar intervertebral disc 23471260 M51.36 Cervical post-laminectomy syndrome 835608826 M96.1 Restless legs 27296570 G 25.81 Long-term drug therapy 557144096 Z79.072 [id number] SARA ENCARNACION [address] [address] 01/23/2023 07:43:05 01/23/2023 08:56:16 Degeneration of lumbar intervertebral disc 35710021 M51.36 Cervical post-laminectomy syndrome 782743588 M96.1 Restless legs 38946509 G 25.81 Long-term drug therapy 580806730 Z79.975 [id number] SARA ENCARNACION [address] [address] 03/27/2023 06:59:30 03/27/2023 07:39:53 Degeneration of lumbar intervertebral disc 86952818 M51.36 Cervical post-laminectomy syndrome 356551056 M96.1 Restless legs 41751973 G 25.81 Long-term drug therapy 139780346 Z79.585 [id number] SARA ENCARNACION [address] [address] 04/24/2023 07:50:59 04/24/2023 08:42:37 Degeneration of lumbar intervertebral disc 12610900 M51.36 Cervical post-laminectomy syndrome 479408010 M96.1 Restless legs 04449080 G 25.81 Long-term drug therapy 973601675 Z79.899 Inflammati on of sacroiliac joint 41110897 M46.1 [id number] SARA ENCARNACION [address] [address] 05/22/2023 07:07:57 05/22/2023 07:50:58 Degeneration of lumbar intervertebral disc 74512708 M51.36 Cervical post-laminectomy syndrome 632319407 M96.1 Restless legs 03357161 G 25.81 Long-term drug therapy 491369598 Z79.899 Inflammati on of sacroiliac joint 23698719 M46.1 [id number] Kiah_Am wanda [place] [address] 06/27/2023 07:21:03 06/27/2023 08:44:24 Degeneration of lumbar intervertebral disc 26740488 M51.36 Cervical post-laminectomy syndrome 674298400 M96.1 Restless legs 79783933 G 25.81 Inflammati on of sacroiliac joint 58303857 M46.1 Long-term drug therapy 119036981 Z79.899 Myofascial pain 28771840 9 M79.10 [id number] ELISEO LUGO NP [address] [address] 07/30/2023 07:40:48 07/30/2023 08:28:24 Degeneration of lumbar intervertebral disc 34197740 M51.36 Cervical post-laminectomy syndrome 875078241 M96.1 Restless legs 79879145 G 25.81 Inflammati on of sacroiliac joint 43371107 M46.1 Long-term drug therapy 493842028 Z79.899 Myofascial pain 03615888 9 M79.10 [id number] [facility] [address] [address] 08/07/2023 17:23:41 08/07/2023 18:18:36 Myofascial pain 122543428 M79.18 [id number] ELISEO LUGO NP [address] [address] 08/28/2023 06:58:37 08/28/2023 07:39:18 Degeneration of lumbar intervertebral disc 01040476 M51.36 Cervical post-laminectomy syndrome 645655451 M96.1 Restless legs 01143586 G 25.81 Inflammati on of sacroiliac joint 19924063 M46.1 Long-term drug therapy 843653411 Z79.899 Myofascial pain 83447495 9 M79.10 [id number] ELISEO LUGO NP [place] [address] [address] 09/25/2023 09:40:02 09/25/2023 11:02:09 Degeneration of lumbar intervertebral disc 90109247 M51.36 Cervical post-laminectomy syndrome 894257517 M96.1 Restless legs 42480160 G 25.81 Inflammati on of sacroiliac joint 06418073 M46.1 Long-term drug therapy 064020115 Z79.899 Myofascial pain 89317037 9 M79.10 [id number] ELISEO LUGO NP [place] [address] [place] [address] 10/29/2023 07:16:27 10/29/2023 07:52:26 Degeneration of lumbar intervertebral disc 30662235 M51.36 Cervical post-laminectomy syndrome 849363511 M96.1 Restless legs 78056405 G 25.81 Inflammati on of sacroiliac joint 21304910 M46.1 Long-term drug therapy 808075175 Z79.899 Myofascial pain 04621913 9 M79.10 [id number] LONI BARRAZA [address] [place] [address] 12/07/2023 10:21:24 12/07/2023 10:59:24 Restless legs 94448557 G25.81 Inflammati on of sacroiliac joint 77832514 M46.1 Long-term drug therapy 445145789 Z79.899 Myofascial pain 13223700 9 M79.10 Cervical spondylosis 387 235096 M47.812 Cervical radiculitis 110 09841 M54.12 Lumbar spondylosis 39134 0009 M47.816 Lumbosacra l radiculitis 28020162 M54.17 [id number] LONI BARRAZA [address] [place] [address] 02/01/2024 09:54:37 02/01/2024 10:36:07 Restless legs 01770117 G25.81 Inflammati on of sacroiliac joint 12722317 M46.1 Myofascial pain 03272259 9 M79.10 Long-term drug therapy 053588589 Z79.899 Cervical spondylosis 387 448146 M47.812 Cervical radiculitis 110 60944 M54.12 Lumbar spondylosis 19926 0009 M47.816 Lumbosacra l radiculitis 69946117 M54.17 Chronic pain 21863029 G8 9.29 [id number] LONI BARRAZA [address] [place] [address] 04/21/2024 14:32:44 04/21/2024 14:56:47 Restless legs 49263462 G25.81 Inflammati on of sacroiliac joint 21034256 M46.1 Myofascial pain 70585131 9 M79.10 Cervical spondylosis 387 278588 M47.812 Cervical radiculitis 110 09200 M54.12 Lumbar spondylosis 79301 0009 M47.816 Lumbosacra l radiculitis 36037303 M54.17 Long-term drug therapy 686932874 Z79.899 Chronic pain 22135628 G8 9.29 [id number] LONI BARRAZA [address] [place] [address] 07/08/2024 09:30:43 07/08/2024 09:58:40 Cervical spondylosis 270803145 M47.812 Lumbar spondylosis 04605 0009 M47.816 Lumbosacra l radiculitis 59289896 M54.17 Long-term drug therapy 487154303 Z79.899 Chronic pain 86194220 G8 9.29 [id number] MD Anum CHA [address] [place] [address] 07/28/2024 07:59:49 07/28/2024 08:16:11 Lumbar spondylosis 122273435 M47.400 [id number] LONI BARRAZA [address] [place] [address] 08/04/2024 13:00:16 08/04/2024 13:01:39 Pain disorder with psychological factor 5441039162 07 F45.42 Health Concerns Section Related Observation LastModified by Organization Detai ls LastModified Time None Recorded Concern Status LastModified by Organization Details LastModified Time None Recorded Advance Directives Directive N: Payers Encounter Date Sequence Insurance Name Policy Number Policy Madrigal Covered Member ID Madrigal Member ID Guarantor Name 02/01/2024 1 [employer] [place] Catie Martinez [id number] Catie Rocha Martinez 04/21/2024 1 [employer] [place] Catie Martinez [id number] Catie Rocha Martinez 07/08/2024 1 [employer] [place] Catie Martinez [id number] Catie Rocha Martinez 07/28/2024 1 [employer] [place] Catie Martinez [id number] Catie Rocha Martinez 07/30/2024 1 [employer] [place] Catie Martinez [id number] Catie Rocha Martinez Notes Date Note Type Note Provider Name and Address Organization Details Recorded Time 02/01/2024 text/html Catie presents to the office for a follow up visit. Patient reports her pain is about 7/10 today. Patient states it is time for her back injections. The patient has had no recent hospitalization, ER visits, specialist appointments (neurology, orthopedics, surgery), or updated imaging since their last visit. ODELL MISTRY, FERRY HAND [address] [place] [address], [address], [facility] 02/01/2024 12:35:18 02/01/2024 text/html Low back painRep orted bypatient.Onset:date of onset: (2009) Location:paraspinal: bilateral; bilateral hips Context:lifting Quality:throbbing Pain Intensitycurrent pain level: 7/10; average pain level: 6/10; worst pain level: 10/10 Alleviating Factors:opioids; neuropathic medications Aggravating Factors:sitting; standing; walking; lifting; twisting; bending/squatting; standing from a seated position Functional Assessment of ADLsLiving independently.; Able to bathe/groom without assistance. Prior Imaging:x-ray (02/2022); MRI (2013); CT scan (08/2022) Lumbar [place]ACDF [place] [address] George Interventional Treatment History:SI joint injections: helped temporarily; trigger point injections: helped temporarily Physical Therapy:she has been doing the home exercises since her last visit and patient states it made her sore. She has been doing the home exercises since her last visit and patient states it made her sore. 12/26/2022 no recent therapy or HEP 01/23/2023 Patient states she is doing HEP for low back, daily, with relief, for a month. 03/27/2023 states she started PT for left arm, 6 visits. continues HEP for low back, daily as tolerated. 04/24/2023 stopped PT for left arm, made pain worse. Patient states she gets plenty of exercise at work. 07/30/2023 patient states she does HEP for low back, daily as tolerated, no relief. 08/28/2023 HEP low back, 3 times a week, some relief. 10/29/2023 low back HEP, 3 times a week, minimal relief. Current Analgesics:Oxycodone effective (Percocet); Gabapentin effective; Reported pain relief- 30% for 6 hours; Patient reports her last dose of Percocet and Gabapentin was this morning 02/01/2024 Medications History:NSAIDs: (Mobic-- ineffective); Muscle relaxants: (zanaflex - effective); Neuropathics: (Lyrica--Effective); Opioid pain medications: (Percocet- effective) Adverse Reactions:No nausea; No vomiting; No constipation; No itching Prior Pain Management:yes:; 04/2020 [facility] ODELL MISTRY, LONI [address] [place], [address], [facility] 02/01/2024 12:35:18 04/21/2024 text/html Low back painRep orted bypatient.Onset:date of onset: (2009) Location:paraspinal: bilateral; bilateral hips Context:lifting Quality:throbbing Pain IntensitySevere; current pain level: 7/10; average pain level: 8/10; worst pain level: 9/10 Alleviating Factors:opioids; neuropathic medications Aggravating Factors:sitting; standing; walking; lifting; twisting; bending/squatting; standing from a seated position Associated Symptoms:weakness;num bness;tingling Functional Assessment of ADLsLiving independently.; Able to bathe/groom without assistance.; Walking without assistance or significant difficulty; Participating in recreation on a regular basis. Prior Imaging:x-ray (02/2022); MRI (2013); CT scan (08/2022) Lumbar Surgery:ACDF [place] [address] George Interventional Treatment History:SI joint injections: helped temporarily; trigger point injections: helped temporarily Physical Therapy:she has been doing the home exercises since her last visit and patient states it made her sore. She has been doing the home exercises since her last visit and patient states it made her sore. 12/26/2022 no recent therapy or HEP 01/23/2023 Patient states she is doing HEP for low back, daily, with relief, for a month. 03/27/2023 states she started PT for left arm, 6 visits. continues HEP for low back, daily as tolerated. 04/24/2023 stopped PT for left arm, made pain worse. Patient states she gets plenty of exercise at work. 07/30/2023 patient states she does HEP for low back, daily as tolerated, no relief. 08/28/2023 HEP low back, 3 times a week, some relief. 10/29/2023 low back HEP, 3 times a week, minimal relief. Current Analgesics:Oxycodone effective (Percocet); Gabapentin effective; Reported pain relief- 30% for 6 hours; Patient reports her last dose of Percocet and Gabapentin was this morning around 6AM. Pharmacy verified. Medications History:NSAIDs: (Mobic-- ineffective); Muscle relaxants: (zanaflex - effective); Neuropathics: (Lyrica--Effective); Opioid pain medications: (Percocet- effective) Adverse Reactions:No nausea; No vomiting; No constipation; No itching Prior Pain Management:yes:; 04/2020 [facility] For Female Patients:Are you ? No Complete Care Program:Order Date: (04/21/2024) Catie presents to the office for a follow up visit. Patient reports her pain is about 7/10 today. Patient states she did have f/u with oncologist since last visit. Patient denies recent imaging, surgeries, hospital, or ER visits since last visit. Patient can be scheduled for MBB. ODELL MISTRY, LONI [address] [place] [address], [address], [place] [facility] 04/21/2024 16:16:01 07/08/2024 text/html Low back painRep orted bypatient.Onset:date of onset: (2009) Location:paraspinal: bilateral; bilateral hips Context:lifting Quality:throbbing Pain IntensitySevere; current pain level: 7/10; average pain level: 8/10; worst pain level: 9/10 Alleviating Factors:opioids; neuropathic medications Aggravating Factors:sitting; standing; walking; lifting; twisting; bending/squatting; standing from a seated position Associated Symptoms:weakness;num bness;tingling Functional Assessment of ADLsLiving independently.; Able to bathe/groom without assistance.; Walking without assistance or significant difficulty; Participating in recreation on a regular basis. Prior Imaging:x-ray (02/2022); MRI (2013); CT scan (08/2022) Lumbar Surgery:ACDF [place] [address] George Interventional Treatment History:SI joint injections: helped temporarily; trigger point injections: helped temporarily Physical Therapy:she has been doing the home exercises since her last visit and patient states it made her sore. She has been doing the home exercises since her last visit and patient states it made her sore. 12/26/2022 no recent therapy or HEP 01/23/2023 Patient states she is doing HEP for low back, daily, with relief, for a month. 03/27/2023 states she started PT for left arm, 6 visits. continues HEP for low back, daily as tolerated. 04/24/2023 stopped PT for left arm, made pain worse. Patient states she gets plenty of exercise at work. 07/30/2023 patient states she does HEP for low back, daily as tolerated, no relief. 08/28/2023 HEP low back, 3 times a week, some relief. 10/29/2023 low back HEP, 3 times a week, minimal relief. Current Analgesics:Oxycodone effective (Percocet); Gabapentin effective; Reported pain relief- 30% for 6 hours; Patient reports her last dose of Percocet and Gabapentin was this morning around 6AM. Pharmacy verified. 07/08/2024 Medications History:NSAIDs: (Mobic-- ineffective); Muscle relaxants: (zanaflex - effective); Neuropathics: (Lyrica--Effective); Opioid pain medications: (Percocet- effective) Adverse Reactions:No nausea; No vomiting; No constipation; No itching Prior Pain Management:yes:; 04/2020 [facility] For Female Patients:Are you ? No Complete Care Program:Order Date: (04/21/2024) Catie presents to the office for a follow up visit. Patient reports her pain is about 6/10 today. Patient states she did have f/u with oncologist since last visit. Patient denies recent imaging, surgeries, hospital, or ER visits since last visit. Patient can be scheduled for MBB. patient states she had moved and missed her appt for her MBB and would like to get that scheduled. ODELL MISTRY, FERRY HAND [address] [place], [address], [facility] 07/08/2024 10:52:20 OBGyn Episode No OBEpisode recorded.
--- OUTSIDE RECORDS SUMMARY | 2024-08-18 13:16 | XMS_ITS | Encounter Summary ---
Author Organization [facility] nter Address [address] [place], [place] [id number] [place] [address] Care Team Providers Care Margin Analyst Name Role Phone Ricardo Contreras MD Primary Care Provider + Encounter Details Date Type Department Care Team (Late st Contact Info) Description 04/09/2018 10:15 AM EDT - 04/09/2018 11:59 PM EDT Hospital Encounter [facility] CONVERSION OUTPATIENT [address] [place] [address] Cristina Gorman MD [address] [place] [phone] Social History Tobacco Use Types Packs/Day Years [...] on filedocumented in this encounter Care Teams Margin Analyst Relationship Specialty Start Date End Date Ricardo Contreras MD [address] [place] [address] PCP - General documented as of this encounter
--- OUTSIDE RECORDS SUMMARY | 2024-08-18 13:16 | XMS_ITS | Encounter Summary ---
Author Organization [facility] nter Address [address] [place], [place] [id number] [place], [place] [address] Care Team Providers Care Advanced Manager Name Role Phone Ricardo Contreras MD Primary Care Provider + Encounter Details Date Type Department Care Team (Latest Contact Info) Description 05/09/2018 3:13 PM EDT - 05/09/2018 11:59 PM EDT Hospital Encounter [facility] CONVERSION OUTPATIENT [address] [place] [address] Emily Sprague, SARA [address] [place] [phone] Obesity, unspecified; Body mass index (BMI) 39.0-39.9, adult; Gastro-esophageal reflux disease with esophagitis; Vitamin D deficiency, unspecified; Type 2 diabetes mellitus with unspecified complications; Tobacco use; Chronic atrophic gastritis with bleeding Discharge Disposition: Home or Self Care Social [...] unspecified Body mass index (BMI) 39.0-39.9, adult Gastro-esophageal reflux disease with esophagitis Reflux esophagitis Vitamin D deficiency, unspecified Type 2 diabetes mellitus with unspecified complications Tobacco use Chronic atrophic gastritis with bleeding documented in this encounter Care Teams Advanced Manager Relationship Specialty Start Date End Date Ricardo Contreras MD [address] [place] [address] PCP - General documented as of this encounter
--- OUTSIDE RECORDS SUMMARY | 2024-08-18 13:16 | XMS_ITS | Encounter Summary ---
Author Organization [facility] nter Address [address] [place], [place] [address] [place], [place] [address] Care Team Providers Care Poultry Scientist Name Role Phone Ricardo Contreras MD Primary Care Provider + Encounter Details Date Type Department Care Team (Late st Contact Info) Description 09/20/2017 10:25 AM EST - 09/20/2017 11:59 PM EST Hospital Encounter [facility] CONVERSION OUTPATIENT [address] [place] [address] Ubaldo Yuen, DO [address] [place] [address] Social History Tobacco Use Types Packs/Day Years [...] on filedocumented in this encounter Care Teams Poultry Scientist Relationship Specialty Start Date End Date Ricardo Contreras MD [address] [place] [address] PCP - General documented as of this encounter
--- OUTSIDE RECORDS SUMMARY | 2024-08-18 13:16 | XMS_ITS | Encounter Summary ---
Author Organization [facility] nter Address [address] [place], [place] [address] [place], [place] [address] Care Team Providers Care Stock Control Clerk Name Role Phone Ricardo Contreras MD Primary Care Provider + Encounter Details Date Type Department Care Team (Late st Contact Info) Description 12/26/2017 11:21 AM EDT - 12/26/2017 11:59 PM EDT Hospital Encounter [facility] CONVERSION OUTPATIENT [address] [place] [address] Ubaldo Yuen, DO [address] [place] [address] Social History Tobacco Use Types Packs/Day Years [...] on filedocumented in this encounter Care Teams Stock Control Clerk Relationship Specialty Start Date End Date Ricardo Contreras MD [address] [place] [address] PCP - General documented as of this encounter
--- OUTSIDE RECORDS SUMMARY | 2024-08-18 13:16 | XMS_ITS | Encounter Summary ---
Author Organization [facility] nter Address [address] [place], [place] [address] [place], [place] [address] Care Team Providers Care Foundation Maker Name Role Phone Ricardo Contreras MD Primary Care Provider + Encounter Details Date Type Department Care Team (Late st Contact Info) Description 2017 11:45 AM EST - 2017 11:59 PM EST Hospital Encounter [facility] CONVERSION OUTPATIENT [address] [place] [address] Ubaldo Yuen, DO [address] [place] [address] Social History Tobacco Use Types Packs/Day Years [...] on filedocumented in this encounter Care Teams Foundation Maker Relationship Specialty Start Date End Date Ricardo Contreras MD [address] [place] [address] PCP - General documented as of this encounter
--- OUTSIDE RECORDS SUMMARY | 2024-08-18 13:16 | XMS_ITS | Encounter Summary ---
Author Organization [facility] nter Address [address] [place], [place] [address] [place], [place] [id number] Care Team Providers Care Gelatin Maker Utility Name Role Phone Ricardo Contreras MD Primary Care Provider + Encounter Details Date Type Department Care Team (Latest Contact Info) Description 04/03/2018 5:36 AM EDT - 04/03/2018 11:59 PM EDT Hospital Encounter [facility] CONVERSION OUTPATIENT [address] [place] [address] Cristina Gorman MD [address] [place] [phone] Gastro-esophageal reflux disease with esophagitis; Gastritis, unspecified, without bleeding; Hyperlipidemia, unspecified; Essential (primary) hypertension; Gastro-esophageal reflux disease without esophagitis; Other spondylosis, lumbosacral region; Obesity, unspecified; Nicotine dependence, unspecified, uncomplicated; Chronic sinusitis, unspecified; Myositis, unspecified; Major depressive disorder, single episode, unspecified; Type 2 diabetes mellitus without complications; Unspecified osteoarthritis, unspecified site; Bee allergy status; Latex allergy status; Allergy to other foods; Other nonmedicinal substance allergy status; Other correction (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; FDC (current) use of oral hypoglycemic drugs; FDC (current) use of opiate analgesic; Body mass index (BMI) 38.0-38.9, adult Discharge Disposition: Home or Self Care [...] Procedure Name Priority Date/Time Associated Diagnosis Comments HISTORICAL SURGICAL PATHOLOGY CASE - LEGACY Routine 04/03/2018 documented in this encounter Results * Historical Surgical Pathology Case (04/03/2018) Tissue 04/03/2018 04/03/2018 [facility] - 04/03/2018 DIAGNOSIS 1. ??Stomach, biopsy: ?? - ??Gastric antral-type mucosa with reactive gastropathy. - ??CFV stain is negative for H. pylori organisms.2. ??Esophagus, biopsy: ??- ??Gastric cardiac-type mucosa with mild chronic inflammation and focal intestinal metaplasia with no dysplasia. - ??No squamous epithelium is identified. [id number] SUBMITTED: ? ESOPHAGEAL BIOPSY,SURGICAL BIOPSY CLINICAL INFORMATION Heartburn, reflux esophagitis, gastritis GROSS DESCRIPTION Two specimens are received in formalin. Specimen one is labeled ? gastric bx? and consists of one goins fragment measuring 0.2 x 0.2 x 0.2 cm. The specimen is submitted entirely in cassette 1A.Specimen two is labeled ? esophageal bx? and consists of two goins fragments measuring 0.4 x 0.2 x 0.2 cm in aggregate. The specimen is submitted entirely in cassette 2A.Grossed 04/03/18 ??lzTyped 04/04/18 ?? SOURCE MODIFIER Microscopic examination was performed.1. 61782, 65387 (K31.9)/2. 65024 (K21.9, K22.70) [employer] Case:[id number] Cristina Gorman MD [facility] Organization Address City/State/ZIP Co de Phone Number [facility] [address] documented in this encounter Visit Diagnoses Diagnosis Gastro-esophageal reflux disease with esophagitis Reflux esophagitis Gastritis, unspecified, without bleeding Hyperlipidemia, unspecified Essential (primary) hypertension Unspecified essential hypertension Gastro-esophageal reflux disease without esophagitis Other spondylosis, lumbosacral region Obesity, unspecified Nicotine dependence, unspecified, uncomplicated Chronic sinusitis, unspecified Myositis, unspecified Major depressive disorder, single episode, unspecified Type 2 diabetes mellitus without complications Unspecified osteoarthritis, unspecified site Bee allergy status Latex allergy status Allergy to other foods Other nonmedicinal substance allergy status Other correction (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 FDC (current) use of oral hypoglycemic drugs remote computer terminal operator (current) use of opiate analgesic Body mass index (BMI) 38.0-38.9, adult documented in this encounter Care Teams Gelatin Maker Utility Relationship Specialty Start Date End Date Ricardo Contreras MD [address] [place] [address] PCP - General documented as of this encounter
--- OUTSIDE RECORDS SUMMARY | 2024-08-18 13:16 | XMS_ITS | Encounter Summary ---
Author Organization [facility] nter Address [address] [place] [address] [place] [address] Care Team Providers Care Maintenance Plumber Name Role Phone Ricardo Conrteras MD Primary Care Provider + Encounter Details Date Type Department Care Team (Latest Contact Info) Description 08/27/2017 8:11 AM EST - 08/27/2017 11:59 PM EST Hospital Encounter [facility] CONVERSION OUTPATIENT [address] [place] [address] Dante Arce MD [address] [place] [phone] Unspecified injury of muscle(s) and tendon(s) of the rotator cuff of right shoulder, subsequent encounter Discharge Disposition: Home or Self Care Social [...] as of this encounter Visit Diagnoses Diagnosis Unspecified injury of muscle(s) and tendon(s) of the rotator cuff of right shoulder, subsequent encounter documented in this encounter Care Teams Maintenance Plumber Relationship Specialty Start Date End Date Ricardo Contreras MD [address] [place] [address] PCP - General documented as of this encounter
--- OUTSIDE RECORDS SUMMARY | 2024-08-18 13:16 | XMS_ITS | Encounter Summary ---
Author Organization [facility] nter Address [address] [place], [place] [id number] [place], [place] [address] Care Team Providers Care Morgue Keeper Name Role Phone Ricardo Contreras MD Primary Care Provider + Encounter Details Date Type Department Care Team (Late st Contact Info) Description 11/14/2017 12:49 PM EST - 11/14/2017 11:59 PM EST Hospital Encounter [facility] CONVERSION OUTPATIENT [address] [place] [address] Ubaldo Yuen, DO [address] [place] [address] Social History Tobacco Use Types Packs/Day Years [...] on filedocumented in this encounter Care Teams Morgue Keeper Relationship Specialty Start Date End Date Ricardo Contreras MD [address] [place] [address] PCP - General documented as of this encounter
--- OUTSIDE RECORDS SUMMARY | 2024-08-18 13:16 | XMS_ITS | Encounter Summary ---
Author Organization [facility] nter Address [address] [place], [place] [id number] [place], [place] [address] Care Team Providers Care Fell Cutter Name Role Phone Ricardo Contreras MD Primary Care Provider + Encounter Details Date Type Department Care Team (Late st Contact Info) Description 02/20/2018 10:18 AM EDT - 02/20/2018 11:59 PM EDT Hospital Encounter [facility] CONVERSION OUTPATIENT [address] [place] [address] Ubaldo Yuen, DO [address] [place] [address] Social History Tobacco Use Types Packs/Day Years [...] on filedocumented in this encounter Care Teams Fell Cutter Relationship Specialty Start Date End Date Ricardo Contreras MD [address] [place] [address] PCP - General documented as of this encounter
--- OUTSIDE RECORDS SUMMARY | 2024-08-18 13:16 | XMS_ITS | Encounter Summary ---
Author Organization [facility] nter Address [address] [place], [place] [address] [place], [place] [address] Care Team Providers Care Operations Inspector Name Role Phone Ricardo Contreras MD Primary Care Provider + Encounter Details Date Type Department Care Team (Late st Contact Info) Description 03/08/2018 12:01 AM EDT - 03/08/2018 11:59 PM EDT Hospital Encounter [facility] CONVERSION OUTPATIENT [address] [place] [address] Cristina Gorman MD [address] [place] [phone] Social History Tobacco Use Types Packs/Day Years [...] on filedocumented in this encounter Care Teams Operations Inspector Relationship Specialty Start Date End Date Ricardo Contreras MD [address] [place] [address] PCP - General documented as of this encounter
--- OUTSIDE RECORDS SUMMARY | 2024-08-18 13:16 | XMS_ITS | Encounter Summary ---
Author Organization [facility] nter Address [address] [place], [place] [phone] [place], [place] [address] Care Team Providers Care Installation Manager Name Role Phone Ricardo Contreras MD Primary Care Provider + Encounter Details Date Type Department Care Team (Late st Contact Info) Description 05/08/2018 7:04 AM EDT - 05/08/2018 11:59 PM EDT Hospital Encounter [facility] CONVERSION OUTPATIENT [address] [place] [address] Ubaldo Yuen, DO [address] [place] [address] Social History Tobacco Use Types Packs/Day Years [...] on filedocumented in this encounter Care Teams Installation Manager Relationship Specialty Start Date End Date Ricardo Contreras MD [address] [place] [address] PCP - General documented as of this encounter
--- OUTSIDE RECORDS SUMMARY | 2024-08-18 13:16 | XMS_ITS | Encounter Summary ---
Author Organization [facility] nter Address [address] [place], [place] [id number] [place] [address] Care Team Providers Care Health Inspector Name Role Phone Ricardo Contreras MD Primary Care Provider + Encounter Details Date Type Department Care Team (Latest Contact Info) Description 11/26/2017 8:09 AM EDT - 11/26/2017 11:59 PM EDT Hospital Encounter [facility] CONVERSION OUTPATIENT [address] [place] [address] Dante Arce MD [address] [place] [phone] Unspecified injury of muscle(s) and tendon(s) of the rotator cuff of right shoulder, subsequent encounter; Primary osteoarthritis, right shoulder; Pain in right shoulder Discharge Disposition: Home or Self Care [...] rotator cuff of right shoulder, subsequent encounter Primary osteoarthritis, right shoulder Pain in right shoulder documented in this encounter Care Teams Health Inspector Relationship Specialty Start Date End Date Ricardo Contreras MD [address] [place] [address] PCP - General documented as of this encounter
--- OUTSIDE RECORDS SUMMARY | 2024-08-18 13:16 | XMS_ITS | Encounter Summary ---
Author Organization [facility] nter Address [address] [place], [place] [id number] [place], [place] [address] Care Team Providers Care Cloth Shrinking Tester Name Role Phone Ricardo Contreras MD Primary Care Provider + Encounter Details Date Type Department Care Team (Latest Contact Info) Description 02/21/2018 1:43 PM EDT - 02/21/2018 11:59 PM EDT Hospital Encounter [facility] CONVERSION OUTPATIENT [address] [place] [address] Cristina Gorman MD [address] [place] [phone] Obesity, unspecified; Body mass index (BMI) 39.0-39.9, adult; Type 2 diabetes mellitus with unspecified complications; Sleep apnea, unspecified; Heartburn; Shortness of breath Discharge Disposition: Home or [...] unspecified Body mass index (BMI) 39.0-39.9, adult Type 2 diabetes mellitus with unspecified complications Sleep apnea, unspecified Heartburn Shortness of breath documented in this encounter Care Teams Cloth Shrinking Tester Relationship Specialty Start Date End Date Ricardo Contreras MD [address] [place] [address] PCP - General documented as of this encounter
== END 2024-08-18 23:59 | disposition home or self-care (01) ==
LOC: RAD 13:04
PROVIDERS: Visit Provider Internal Medicine Medical Oncology
DX: Z12.31 Encounter for screening mammogram for malignant neoplasm of breast (principal); C50.911 Malignant neoplasm of unspecified site of right female breast; Z90.11 Acquired absence of right breast and nipple
CPT/HCPCS: 77063; 77067

== ENCOUNTER 2024-10-20 14:08 | Outpatient (CLI) | payer MEDICAID, SELFPAY ==
[2024-10-20 16:47] LABS: Microscopic, Urine URINE MICROSCOPIC (MICROSCOPIC)
[2024-10-20 17:05] LABS: Basophils # 0.1 K/mm3 (0-0.2); Eosinophils # 0.1 K/mm3 (0.0-0.4); Hematocrit 46.6 % (37.0-47.0); Hemoglobin 15.1 g/dL (12.2-16.2); Lymphocytes # 2.4 K/mm3 (0.7-4.5); Lymphocytes % 34.2 % (10-50); Mean Corpuscular HGB Conc 32.4 g/dL (31.8-35.4); Mean Corpuscular Hemoglobin 28.7 pg (27.0-31.2); Mean Corpuscular Volume 88.6 fl (81-99); Mean Platelet Volume 11.2 fl (7.4-10.4); Monocytes # 0.3 K/mm3 (0.1-1.0); Monocytes % 4.9 % (1.7-9.3); Neutrophils % 57.6 % (37.0-80.0); Platelet Count 161 K/mm3 (142-424); Red Blood Count 5.26 M/mm3 (4.20-5.40); Red Cell Distribution Width 13.4 % (11.5-17.5)
[2024-10-20 17:20] LABS: Creatinine,Urine Random 24 mg/dL (Not Estab.)
[2024-10-20 18:04] LABS: Chloride 104 mmol/L (98-107)
[2024-10-20 18:05] LABS: Albumin Level 4.9 g/dl (3.5-5.0); Potassium 3.7 mmoL/L (3.5-5.1); Sodium 143 mmol/L (136-145)
[2024-10-20 18:08] LABS: Alanine Aminotransferase 18 U/L (12-78); Albumin/Globulin Ratio 1.7 (1.1-1.8); Alkaline Phosphatase 71 U/L (38-126); Anion Gap 15.7 mEq/L (5-15); Aspartate Amino Transferase 24 U/L (14-36); Bilirubin,Total 0.5 mg/dl (0.2-1.3); Blood Urea Nitrogen 18 mg/dl (7-17); Carbon Dioxide 27 mmol/L (22.0-30.0); Cholesterol 218 mg/dl (140-200); Estimated Glomerular Filt Rate 52 ml/min (>60); GFR (African American) 63 ML/MIN (>60); Globulin 2.9 g/dL (1.3-3.2); Glucose 130 mg/dl (74-100); Iron 93 ug/dL (37-170); Total Protein,Serum 7.8 g/dl (6.3-8.2); Triglycerides 158 mg/dl (30-150); VLDL Cholesterol 32 mg/dL (0-40)
[2024-10-20 18:09] LABS: Chol/HDL Ratio 4.7 (1-3.5); HDL Cholesterol 46 mg/dl (40-60)
[2024-10-20 18:18] LABS: Total Iron Binding Capacity 329 ug/dL (265-497)
[2024-10-20 18:20] LABS: Direct LDL Cholesterol 121.93 mg/dL (100-129)
[2024-10-20 18:35] LABS: Free T4 (Free Thyroxine) 1.27 ng/dl (0.78-2.19)
[2024-10-20 18:39] LABS: Thyroid Stimulating Hormone 1.48 uIU/mL (0.465-4.68)
[2024-10-20 18:43] LABS: Ferritin 101 ng/ml (11.1-264)
[2024-10-20 18:47] LABS: 25-OH Vitamin D, Total 37.9 ng/mL (30-100)
[2024-10-20 18:55] LABS: HIV Combo NEGATIVE (Negative)
[2024-10-20 19:02] LABS: Vitamin B12 371 pg/mL (239-931)
[2024-10-20 19:03] LABS: Hepatitis C Ab Qual. W/ RFX NEGATIVE (Negative)
[2024-10-20 22:41] LABS: Appearance,Urine CLEAR (Clear); Bilirubin,Urine Negative (Negative); Blood, Urine Negative (Negative); Color,Urine YELLOW (Yellow); Glucose,Urine (UA) Negative (Negative); Ketones,Urine Negative (Negative); Leukocyte Esterase,Urine Negative (Negative); Nitrate,Urine Negative (Negative); Protein,Urine Negative (Negative); Urobilinogen,Urine 0.2 EU/dl (0.2)
[2024-10-20 22:49] LABS: Hemoglobin A1C 6.4 % (4.0-6.0)
[2024-10-20 22:56] LABS: Bacteria,Urine Trace /lpf; Squamous Epithelial Cell,Urine Occasional #/hpf (0-5); WBC,Urine Occasional #/hpf (0-3)
== END 2024-10-20 23:59 | disposition home or self-care (01) ==
LOC: LAB.DROPOF 10-21 09:53
PROVIDERS: PCP Nurse Practitioner Family; Visit Provider Nurse Practitioner Family
DX: I10 Essential (primary) hypertension (principal); E11.9 Type 2 diabetes mellitus without complications; R53.83 Other fatigue; G25.81 Restless legs syndrome; E55.9 Vitamin D deficiency, unspecified; E78.5 Hyperlipidemia, unspecified; Z11.4 Encounter for screening for human immunodeficiency virus [HIV]; Z11.59 Encounter for screening for other viral diseases
CPT/HCPCS: 80053; 80061; 81001; 82043; 82306; 82570; 82607; 82728; 83036; 83540; 83550; 84156; 84439; 84443; 85025; 86803; 87086; 87389